=== PATIENT | female | born 1960 | race Caucasian/White ===

== ENCOUNTER → 2016-12-08 | Outpatient (REF) | payer OTHER ==
[2016-12-08 17:37] LABS: ANION GAP 7 MEQ/L (8-16); BLOOD UREA NITROGEN 18 MG/DL (7-18); CARBON DIOXIDE LEVEL 32 MEQ/L (21-32); CHLORIDE LEVEL 101 MEQ/L (98-107); CREATININE FOR GFR 1.02 MG/DL (0.55-1.02); GLOMERULAR FILTRATION RATE 59.7 (>51); GLUCOSE, FASTING 82 MG/DL (70-105); POTASSIUM SERUM 4.3 MEQ/L (3.5-5.1); SODIUM LEVEL 140 MEQ/L (136-145)
[2016-12-08 17:38] LABS: ALBUMIN 3.6 GM/DL (3.2-5.2); ALKALINE PHOSPHATASE 52 U/L (45-117); ALT/SGPT 20 U/L (12-78); AST/SGOT 12 U/L (15-37); BILIRUBIN,TOTAL 0.4 MG/DL (0.2-1.0); CALCIUM LEVEL 8.3 MG/DL (8.5-10.1); TOTAL PROTEIN 7.6 GM/DL (6.4-8.2); URIC ACID 7.3 MG/DL (2.6-6.0)
== END ==
LOC: M SFHCPLAZ 15:38
PROVIDERS: ATTEND Nurse Practitioner Family
DX: I10 Essential (primary) hypertension (principal); M25.50 Pain in unspecified joint

== ENCOUNTER → 2017-03-30 | Outpatient (CLI) | payer OTHER ==
--- NOTE | 2017-03-30 08:14 | REP ---
Left foot four views: There are no comparisons. There is mild osteoarthritis of the great toe MTP articulation. Mineralization and joint spaces otherwise are unremarkable. There is no fracture or dislocation. No calcifications or foreign bodies. Signed by Nathan De La Paz MD 03/30/2017 08:06 A
--- NOTE | 2017-03-30 08:15 | REP ---
Right foot four views: Mineralization and joint spaces are unremarkable. There is no fracture or dislocation. No calcifications or foreign bodies. Impression: Negative right foot. Signed by Nathan De La Paz MD 03/30/2017 08:07 A
== END ==
LOC: M RAD 06:38
PROVIDERS: ATTEND Nurse Practitioner Family
DX: M79.672 Pain in left foot (principal); M79.671 Pain in right foot

== ENCOUNTER → 2017-07-19 | Outpatient (REF) | payer OTHER | LOC: M SFHCPLAZ 17:00 | PROVIDERS: ATTEND Nurse Practitioner Family | DX: E78.5 Hyperlipidemia, unspecified (principal); E79.0 Hyperuricemia without signs of inflammatory arthritis and tophaceous disease; I10 Essential (primary) hypertension; Z53.8 Procedure and treatment not carried out for other reasons ==

== ENCOUNTER → 2018-07-01 | Outpatient (REF) | payer OTHER ==
[2018-07-01 14:12] LABS: ALBUMIN 3.5 GM/DL (3.2-5.2); ALKALINE PHOSPHATASE 57 U/L (45-117); ALT/SGPT 24 U/L (12-78); ANION GAP 8 MEQ/L (8-16); AST/SGOT 12 U/L (7-37); BILIRUBIN,TOTAL 0.5 MG/DL (0.2-1.0); BLOOD UREA NITROGEN 23 MG/DL (7-18); CALCIUM LEVEL 8.3 MG/DL (8.5-10.1); CARBON DIOXIDE LEVEL 34 MEQ/L (21-32); CHLORIDE LEVEL 98 MEQ/L (98-107); CHOLESTEROL LEVEL 164 MG/DL (<200); CHOLESTEROL RISK RATIO 5.125 (<5); CREATININE FOR GFR 1.05 MG/DL (0.55-1.30); FREE T4 1.06 NG/DL (0.76-1.46); GLOMERULAR FILTRATION RATE 57.5 (>51); GLUCOSE, FASTING 102 MG/DL (70-100); HDL CHOLESTEROL 32 MG/DL (>40); LDL CHOLESTEROL 79 MG/DL (<100); NON-HDL-C 132 MG/DL; POTASSIUM SERUM 4.3 MEQ/L (3.5-5.1); SODIUM LEVEL 140 MEQ/L (136-145); THYROID STIMULATING HORMONE 0.617 uIU/ML (0.358-3.740); TOTAL PROTEIN 7.9 GM/DL (6.4-8.2); TRIGLYCERIDES LEVEL 264 MG/DL (<150)
[2018-07-01 14:16] LABS: MALB URINE SIEMENS 22.3 MG/L
[2018-07-01 14:26] LABS: MAU/CREAT RATIO 20.1 MCG/MG (0.0-30.0)
== END ==
LOC: M SFHCPLAZ 11:16
DX: I10 Essential (primary) hypertension (principal); E78.5 Hyperlipidemia, unspecified

== ENCOUNTER → 2019-01-07 | Outpatient (REF) | payer OTHER ==
[2019-01-07 18:04] LABS: ALBUMIN 3.7 GM/DL (3.2-5.2); ALT/SGPT 34 U/L (12-78); BILIRUBIN,TOTAL 0.6 MG/DL (0.2-1.0); BLOOD UREA NITROGEN 16 MG/DL (7-18); CALCIUM LEVEL 8.6 MG/DL (8.5-10.1); CARBON DIOXIDE LEVEL 36 MEQ/L (21-32); CHLORIDE LEVEL 97 MEQ/L (98-107); CREATININE FOR GFR 0.94 MG/DL (0.55-1.30); GLOMERULAR FILTRATION RATE > 60.0 (>51); GLUCOSE, FASTING 87 MG/DL (70-100); POTASSIUM SERUM 4.6 MEQ/L (3.5-5.1); SODIUM LEVEL 138 MEQ/L (136-145); TOTAL PROTEIN 7.7 GM/DL (6.4-8.2)
[2019-01-07 18:32] LABS: NT-PRO BNP 365 PG/ML (<125)
[2019-01-07 21:16] LABS: HEMATOCRIT 51.2 % (36.0-47.0); HEMOGLOBIN 15.5 g/dl (12.0-15.5); MEAN CORPUSCULAR HEMOGLOBIN 28.4 pg (27.0-33.0); MEAN CORPUSCULAR HGB CONC 30.3 g/dl (32.0-36.5); MEAN CORPUSCULAR VOLUME 93.9 fl (80.0-96.0); PLATELET COUNT, AUTOMATED 233 10^3/uL (150-450); RED BLOOD COUNT 5.45 10^6/uL (4.00-5.40); WHITE BLOOD COUNT 10.3 10^3/uL (4.0-10.0)
== END ==
LOC: M SFHCPLAZ 14:50
PROVIDERS: ATTEND Nurse Practitioner Family
DX: I11.9 Hypertensive heart disease without heart failure (principal); R06.09 Other forms of dyspnea

== ENCOUNTER 2019-05-13 12:23 | Outpatient (RCR) | payer OTHER | END 2019-06-07 | LOC: M PT 12:23 | PROVIDERS: ATTEND Nurse Practitioner Family | DX: E66.01 Morbid (severe) obesity due to excess calories (principal) ==

== ENCOUNTER → 2019-09-01 | Outpatient (REF) | payer OTHER ==
[2019-09-01 17:21] LABS: ALBUMIN 3.7 GM/DL (3.2-5.2); BILIRUBIN,TOTAL 0.9 MG/DL (0.2-1.0); CALCIUM LEVEL 9.4 MG/DL (8.5-10.1); CHOLESTEROL RISK RATIO 4.171 (<5); CREATININE FOR GFR 1.02 MG/DL (0.55-1.30); FREE T4 1.23 NG/DL (0.76-1.46); POTASSIUM SERUM 4.6 MEQ/L (3.5-5.1); THYROID STIMULATING HORMONE 1.18 uIU/ML (0.358-3.740); TOTAL PROTEIN 8.1 GM/DL (6.4-8.2)
[2019-09-01 18:11] LABS: HEMATOCRIT 55.7 % (36.0-47.0); HEMOGLOBIN 16.2 g/dl (12.0-15.5); MEAN CORPUSCULAR HEMOGLOBIN 26.2 pg (27.0-33.0); MEAN CORPUSCULAR HGB CONC 29.1 g/dl (32.0-36.5); PLATELET COUNT, AUTOMATED 246 10^3/uL (150-450); RED BLOOD COUNT 6.19 10^6/uL (4.00-5.40); WHITE BLOOD COUNT 10.7 10^3/uL (4.0-10.0)
== END ==
LOC: M SFHCPLAZ 14:43
PROVIDERS: ATTEND Physician Assistant
DX: E78.5 Hyperlipidemia, unspecified (principal); I10 Essential (primary) hypertension; I50.9 Heart failure, unspecified; N92.6 Irregular menstruation, unspecified; E66.01 Morbid (severe) obesity due to excess calories

== ENCOUNTER → 2020-11-26 | Outpatient (REF) | payer OTHER ==
[2020-11-26 11:54] LABS: HEMATOCRIT 53.6 % (36.0-47.0); HEMOGLOBIN 14.9 g/dl (12.0-15.5); MEAN CORPUSCULAR HEMOGLOBIN 24.8 pg (27.0-33.0); MEAN CORPUSCULAR HGB CONC 27.8 g/dl (32.0-36.5); PLATELET COUNT, AUTOMATED 274 10^3/uL (150-450); RED BLOOD COUNT 6.02 10^6/uL (4.00-5.40); WHITE BLOOD COUNT 10.1 10^3/uL (4.0-10.0)
[2020-11-26 12:23] LABS: ALBUMIN 3.3 GM/DL (3.2-5.2); ALT/SGPT 22 U/L (12-78); BLOOD UREA NITROGEN 22 MG/DL (7-18); CALCIUM LEVEL 8.4 MG/DL (8.8-10.2); CARBON DIOXIDE LEVEL 40 MEQ/L (21-32); CHLORIDE LEVEL 96 MEQ/L (98-107); CHOLESTEROL LEVEL 126 MG/DL (<200); CHOLESTEROL RISK RATIO 3.818 (<5); CREATININE FOR GFR 0.99 MG/DL (0.55-1.30); GLOMERULAR FILTRATION RATE > 60.0 (>45); GLUCOSE, FASTING 102 MG/DL (70-100); HDL CHOLESTEROL 33 MG/DL (>40); LDL CHOLESTEROL 71 MG/DL (<100); NON-HDL-C 93 MG/DL; POTASSIUM SERUM 5.3 MEQ/L (3.5-5.1); SODIUM LEVEL 138 MEQ/L (136-145); TOTAL PROTEIN 7.3 GM/DL (6.4-8.2); TRIGLYCERIDES LEVEL 111 MG/DL (<150)
== END ==
LOC: M SFHCPLAZ 09:33
PROVIDERS: ATTEND Physician Assistant
DX: J45.909 Unspecified asthma, uncomplicated (principal); I10 Essential (primary) hypertension; E78.5 Hyperlipidemia, unspecified

== ENCOUNTER 2021-03-18 03:21 | Inpatient (IN) | payer OTHER ==
[~2021-03-18] VITALS: Ht 175.3 cm; Wt 204.7 kg
[2021-03-18 05:19] LABS: BASO # 0.1 10^3/uL (0.0-0.2); BASO % 0.5 % (0.0-1.0); EOS # 0.1 10^3/uL (0.0-0.5); EOS % 1.4 % (0.0-3.0); HEMATOCRIT 34.6 % (36.0-47.0); HEMOGLOBIN 9.1 g/dl (12.0-15.5); LYMPH # 0.9 10^3/uL (1.5-5.0); LYMPH % 9.6 % (24.0-44.0); MEAN CORPUSCULAR HEMOGLOBIN 21.3 pg (27.0-33.0); MEAN CORPUSCULAR HGB CONC 26.3 g/dl (32.0-36.5); MONO # 0.7 10^3/uL (0.0-0.8); MONO % 7.5 % (2.0-8.0); NEUTROPHILS # 7.5 10^3/uL (1.5-8.5); NEUTROPHILS % 80.5 % (36.0-66.0); RED BLOOD COUNT 4.27 10^6/uL (4.00-5.40); WHITE BLOOD COUNT 9.4 10^3/uL (4.0-10.0)
[2021-03-18 05:56] LABS: ALBUMIN 2.5 GM/DL (3.2-5.2); ALT/SGPT 12 U/L (12-78); BILIRUBIN,DIRECT 0.3 MG/DL (0.0-0.2); BILIRUBIN,TOTAL 0.7 MG/DL (0.2-1.0); BLOOD UREA NITROGEN 19 MG/DL (7-18); CALCIUM LEVEL 8.2 MG/DL (8.8-10.2); CARBON DIOXIDE LEVEL 36 MEQ/L (21-32); CHLORIDE LEVEL 101 MEQ/L (98-107); CK-MB VALUE MASS < 1.0 NG/ML (<3.6); CPK CREATINE PHOSPHOKINASE 32 U/L (26-192); CREATININE FOR GFR 1.08 MG/DL (0.55-1.30); GLOMERULAR FILTRATION RATE 55.1 (>45); GLUCOSE, FASTING 95 MG/DL (70-100); MB/CK RELATIVE INDEX 3.12 (< OR =4); NT-PRO BNP 2885 PG/ML (<125); POTASSIUM SERUM 4.8 MEQ/L (3.5-5.1); SODIUM LEVEL 140 MEQ/L (136-145); TOTAL PROTEIN 6.6 GM/DL (6.4-8.2); TROPONIN I < 0.02 NG/ML (< 0.10)
[2021-03-18] MEDS ORDERED: FUROSEMIDE 40MG/4ML VIAL (J1940) IV SCH (06:00)
--- NOTE | 2021-03-18 06:23 | REPVR ---
PROCEDURE INFORMATION: Exam: XR Chest Exam date and time: 03/18/2021 5:25 AM Age: 60 years old Clinical indication: Other: SOB TECHNIQUE: Imaging protocol: XR of the chest. Views: 1 view. COMPARISON: No relevant prior studies available. FINDINGS: Lungs: Nonspecific bilateral ground-glass opacities. Pleural spaces: Unremarkable. No pleural effusion. No pneumothorax. Heart/Mediastinum: Unremarkable. No cardiomegaly. Diaphragm: Elevated left hemidiaphragm. Bones/joints: Unremarkable. IMPRESSION: Nonspecific bilateral ground-glass opacities. Electronically signed by: Spencer Muro On 03/18/2021 06:23:33 AM
[2021-03-18] MEDS ORDERED: VENL37.598 PO (07:06)
[2021-03-18] MEDS ORDERED: BUSP1TAB PO (07:06)
[2021-03-18] MEDS ORDERED: XARE20TA PO (07:06)
[2021-03-18] MEDS ORDERED: MONT10TA10 PO (07:06)
[2021-03-18] MEDS ORDERED: FLUO20CA20 PO (07:06)
[2021-03-18] MEDS ORDERED: PROAAER10 INH (07:06)
[2021-03-18] MEDS ORDERED: FLON1SPR (07:06)
[2021-03-18] MEDS ORDERED: METF-839 PO (07:06)
[2021-03-18] MEDS ORDERED: METO100T5 PO (07:06)
[2021-03-18] MEDS ORDERED: ACET650T61 PO (07:06)
[2021-03-18] MEDS ORDERED: LISI20TA20 PO (07:06)
[2021-03-18] MEDS ORDERED: CHOL50002 PO (07:06)
[2021-03-18] MEDS ORDERED: TRAZ-252 PO (07:06)
[2021-03-18 07:07] LABS: RSV AMPLIFICATION NEGATIVE (NEGATIVE)
[2021-03-18 08:46] LABS: FERRITIN 8 NG/ML (8-252); IRON (FE) 17 UG/DL (50-170); PERCENT SATURATION 4.4 % (13.2-45.0); TOTAL IRON BINDING CAPACITY 386 UG/DL (250-450)
[2021-03-18] MEDS: NYSTATIN CREAM 15 GM TOP SCH ×2 (09:00→21:29)
[2021-03-18 09:12] LABS: PLATELET COUNT, AUTOMATED 384 10^3/uL (150-450)
[2021-03-18 10:05] VITALS: BP 125/66
[2021-03-18] MEDS ORDERED: SLF 3 ML SYR IV PRN (10:25)
[2021-03-18] MEDS ORDERED: GLUCOSE 4GM CHEW TABLET PO PRN (11:05)
[2021-03-18] MEDS ORDERED: ALBUTEROL 90 MCG/ACT 8GM HFA INHALER INH PRN (11:05)
[2021-03-18] MEDS ORDERED: FLUTICASONE PROP 0.05% NASAL SPRAY 16 GM (FLONASE) PRN (11:05)
[2021-03-18] MEDS ORDERED: GLUCAGON INJ 1MG VIAL SC PRN (11:05)
[2021-03-18] MEDS ORDERED: DEXTROSE 50% 50 ML SYRINGE IV PRN (11:05)
[2021-03-18] MEDS: HumaLOG INSULIN (NovoLOG) PER UNIT SC SCH ×3 (12:00→21:00)
--- NOTE | 2021-03-18 12:05 | HPE ---
HISTORY AND PHYSICAL DATE OF ADMISSION: 03/18/2021 CHIEF COMPLAINT: Shortness of breath. HISTORY OF PRESENTING ILLNESS: This is a 60-year-old female with super morbid obesity, diastolic heart failure, preserved ejection fraction of 60-65%, obstructive sleep apnea, hypertension, Protein C deficiency, pulmonary embolism in 2009, depression, seasonal allergies, and two sections. She was in her usual state of health until 3-4 weeks ago when she developed increasing dyspnea and worsening dyspnea on exertion. The patient was initially on Lasix, but was discontinued by her primary care physician since she has lost about 80 pounds two years ago. The patient does not follow fluid restrictions and admits to dietary indiscretion often using soups and chili and frozen vegetables from the supermarket. She complains of dyspnea on exertion walking about 5-8 feet. She has been sleeping on her recliner, unable to lay down flat due to shortness of breath. She has been waking up at night with paroxysmal nocturnal dyspnea due to shortness of breath and has not slept in her bed for many months. She also complains of feeling weak, difficult to ambulate. Her who is about 250 pounds has been helping her sit up at home. She has also noted vaginal spotting for the past few months. Hemoglobin was noted to have decreased from baseline of 14.9 to 9.1 today. No GI bleed. Denies hematemesis, bright red blood per rectum, black tarry stools, or coffee ground emesis. She denies any fever, chills, or cough, sore throat, urgency, frequency. In the emergency room, she was noted to be anemic with hemoglobin of 9 from baseline of 14-16. Chest x-ray showed bilateral opacities. Clinically appears fluid-overloaded with 3+ edema to the sacrum. Hospitalist was asked to admit the patient for congestive heart failure, diastolic dysfunction, and evaluation of her vaginal bleeding with symptomatic anemia. PAST MEDICAL HISTORY: 1. Super morbid obesity. 2. Obstructive sleep apnea. 3. Hypertension. 4. Diastolic heart failure with preserved systolic function, ejection fraction of 60-65%. 5. Pulmonary embolism. 6. Protein C deficiency. 7. Depression. 8. Seasonal allergies. PAST SURGICAL HISTORY: Two sections in 1982 and 1984. ALLERGIES: No known drug allergies. SOCIAL HISTORY: Full code, lives with her . Retired on disability. Denies tobacco, alcohol, or recreational drug use. FAMILY HISTORY: Father alive at age 78, bipolar, depression, hypertension. Mother is 79 with depression. Siblings with bipolar and hypertension. REVIEW OF SYSTEMS: Per HPI. PHYSICAL EXAMINATION: VITAL SIGNS: Temperature 98.7, pulse 92, respiratory rate 27, blood pressure 125/66, 95% on 2 liters nasal cannula. GENERAL: The patient is awake, alert, oriented. She has conversation on dyspnea, only able to speak about 6 words and has to pause to breathe. No cyanosis. Light pallor. No icterus, jaundice. NECK: The patient has positive mild JVD. No thyromegaly, cervical lymphadenopathy. HEENT: Pupils are round and reactive to light and accommodation with slight proptosis bilaterally. The patient has no stridor. LUNGS: Diminished with bilateral rales. HEART: S1, S2, sinus rhythm. No murmurs, rubs, or gallops. ABDOMEN: Obese, soft, nontender. Edematous changes noted underneath the pannus and breasts. Positive bowel sounds, soft, nontender, non-distended. Normoactive bowel sounds. Difficult to assess for hepatosplenomegaly and abdominal bruits. Groin is erythematous. No ulcers noted. EXTREMITIES: 3+ pitting edema to the sacrum. Chronic venous stasis changes. DATA: 1. EKG shows sinus rhythm, ventricular rate of 89 with LAD. 2. White count 9, hemoglobin 9, hematocrit 34, platelet count 384. Sodium 140, potassium 48, chloride 101, bicarb 36, BUN 19, creatinine 1.08, glucose 95. Iron 17, TIBC 386. BNP 2885. Troponin less than 0.02. 3. Chest x-ray shows bilateral opacities. 4. Coronavirus 19 is negative. ASSESSMENT: This is a 60-year-old with super morbid obesity BMI 73.1, obstructive sleep apnea, diastolic congestive heart failure, ejection fraction of 60% , hypertension, who presents to the emergency room with 3-4 week history of shortness of breath, admitted for congestive heart failure exacerbation secondary to symptomatic anemia due to vaginal bleeding. The patient will be admitted as an inpatient for 2 midnights. IMPRESSION: 1. Acute decompensated diastolic congestive heart failure with preserved systolic function, EF of 60% on ECHO 2013, most likely due to noncompliance and symptomatic anemia. The patient admits to dietary indiscretion and not following a fluid restriction. She has not followed salt restricted diet and usually uses frozen vegetables and chili. She will be kept on strict I&Os, daily weight, fluid restriction of 1.8 liters. Lasix 40 IV q.6 h. Repeat the echocardiogram. Cycle the cardiac markers. Avoid other nephrotoxins. Monitor the patient's creatinine. 2. Super morbid obesity, BMI of 73, with obstructive sleep apnea. Supplemental oxygen for now. The patient does not wear CPAP. To rule out metabolic syndrome, will check A1c, lipid profile, TSH. 3. History of Protein C deficiency and pulmonary embolism. The patient is on chronic oral anticoagulation which we may resume. 4. Dyslipidemia. Check lipid profile. 5. Hypertension, controlled. 6. Diet: Low fat, low cholesterol, 2 grams sodium diet. 7. Code status: Full code. 8. DVT prophylaxison oralanticoagulant MTDD
[2021-03-18] MEDS: SLF 3 ML SYR IV SCH ×2 (14:02→21:30)
[2021-03-18] MEDS: ACETAMINOPHEN 650MG ER TAB (TYLENOL ARTHRITIS) PO SCH ×2 (14:16→21:29)
[2021-03-18] MEDS ORDERED: metOLazone 2.5 MG TAB PO ONE (15:00)
[2021-03-18] MEDS: FUROSEMIDE 40MG/4ML VIAL (J1940) IV SCH ×2 (16:58→21:29)
[2021-03-18] MEDS: FLUoxetine 20 MG CAP PO SCH (18:47)
[2021-03-18] MEDS: MONTELUKAST 10 MG TAB PO SCH (18:47)
[2021-03-18] MEDS: RIVAROXABAN 20 MG TAB (XARELTO) PO SCH (18:47)
--- NOTE | 2021-03-18 19:50 | ECGEPIP ---
[facility] - ED Test Date: 2021-03-18 Pat Name: MARLENY MARIE Department: Room: [place] [address] Gender: Female Chronic Manager: : 1960 Requested By: James Grayson Order Number: [id number] Reading MD: Jaycob Francis Measurements Intervals [place] Rate: 89 P: 78 [place]: 174 QRS: -43 QRSD: 106 T: 74 QT: 398 QTc: 484 Interpretive Statements Normal sinus rhythm Possible Left atrial enlargement Left axis deviation Low voltage QRS Delayed anterior R wave progression Incomplete right bundle branch block Nonspecific ST-T wave abnormalities Baseline artifact Comparison tracing not on file Electronically Signed on 03-18-2021 19:50:12 EDT by Jaycob Francis
[2021-03-18 20:00] VITALS: BP 96/55
[2021-03-18] MEDS: traZODone 50 MG TAB PO SCH (21:29)
[2021-03-19] VITALS (7 sets, daily range): BP systolic 95–133; BP diastolic 53–65
[2021-03-19] MEDS: ACETAMINOPHEN 650MG ER TAB (TYLENOL ARTHRITIS) PO SCH ×3 (04:55→21:54)
[2021-03-19] MEDS: SLF 3 ML SYR IV SCH ×3 (04:55→21:39)
[2021-03-19] MEDS: FUROSEMIDE 40MG/4ML VIAL (J1940) IV SCH ×2 (04:55→10:58)
[2021-03-19 06:25] LABS: BASO % 0.5 % (0.0-1.0); EOS # 0.2 10^3/uL (0.0-0.5); HEMATOCRIT 35.7 % (36.0-47.0); HEMOGLOBIN 9.4 g/dl (12.0-15.5); LYMPH # 0.8 10^3/uL (1.5-5.0); LYMPH % 9.4 % (24.0-44.0); MEAN CORPUSCULAR HEMOGLOBIN 21.7 pg (27.0-33.0); MEAN CORPUSCULAR HGB CONC 26.3 g/dl (32.0-36.5); MEAN CORPUSCULAR VOLUME 82.4 fl (80.0-96.0); MONO # 0.6 10^3/uL (0.0-0.8); MONO % 7.2 % (2.0-8.0); NEUTROPHILS # 7.1 10^3/uL (1.5-8.5); NEUTROPHILS % 80.4 % (36.0-66.0); PLATELET COUNT, AUTOMATED 348 10^3/uL (150-450); RED BLOOD COUNT 4.33 10^6/uL (4.00-5.40); WHITE BLOOD COUNT 8.8 10^3/uL (4.0-10.0)
[2021-03-19 06:42] LABS: CALCIUM LEVEL 8.4 MG/DL (8.8-10.2); CHOLESTEROL RISK RATIO 2.419 (<5); CREATININE FOR GFR 1.02 MG/DL (0.55-1.30); FREE THYROXINE INDEX 1.4 % (1.3-4.8); GLOMERULAR FILTRATION RATE 58.8 (>45); POTASSIUM SERUM 3.9 MEQ/L (3.5-5.1); THYROID STIMULATING HORMONE 1.46 uIU/ML (0.358-3.740); THYROXINE (T4) 4.4 UG/DL (4.5-12.0)
[2021-03-19 06:48] LABS: HEMOGLOBIN A1c 6.4 %
[2021-03-19] MEDS: HumaLOG INSULIN (NovoLOG) PER UNIT SC SCH ×4 (07:30→21:00)
--- NOTE | 2021-03-19 08:31 | REP ---
INDICATION: sob. COMPARISON: Comparison radiograph March 18, 2021. TECHNIQUE: Portable upright AP chest radiograph. FINDINGS: The patient is again noted be rotated to the left. Cardiac silhouette is difficult to evaluate due to the rotation but appears slightly prominent. Pulmonary vasculature is not increased. No definite infiltrate is seen. The left lateral pleural angle is obscured, possibly by abdominal wall tissue. I cannot exclude small left pleural effusion.. IMPRESSION: Obscured versus blunted left lateral pleural angle. Mildly prominent heart. No definite infiltrate patient is rotated to the left.. <Electronically signed by Austin Sweet > 03/19/21 [id number]
[2021-03-19] MEDS ORDERED: MIDODRINE 5 MG TAB PO ONE ×2 (09:00→12:15)
[2021-03-19] MEDS: NYSTATIN 100,000 UNITS/GM TOPICAL PWD 15 GM TOP SCH ×2 (09:00→21:54)
[2021-03-19] MEDS: NYSTATIN CREAM 15 GM TOP SCH (09:23)
[2021-03-19] MEDS ORDERED: metOLazone 5 MG TAB PO ONE ×2 (09:30→13:30)
--- NOTE | 2021-03-19 09:30 | IPN ---
PROGRESS NOTE DATE: 03/19/2021 SUBJECTIVE: Patient seen and examined at the bedside. Chart has been reviewed. She denies any chest pain, pressure, tightness, lightheadedness, or dizziness. Complains of a little bit of thirst. Had 4.9 liters urine output yesterday on IV Lasix. No dizziness or lightheadedness. OBJECTIVE: VITAL SIGNS: Temperature 97.5, pulse 94, respiratory rate 20, blood pressure 111/57, 91% on BiPAP. GENERAL: The patient is awake, alert, and oriented. No conversational dyspnea. No pallor or icterus. LUNGS: Diminished with bilateral rales. HEART: S1, S2. Sinus rhythm. ABDOMEN: Soft, nontender, and nondistended. EXTREMITIES: 3+ pitting edema. LABORATORY DATA: CBC and metabolic panel have been reviewed. ASSESSMENT: This is a 60-year-old female with history of super morbid obesity with body mass index (BMI) of 66.8 who presented to the emergency room with a three to four week history of worsening shortness of breath, admitted for the following issues: 1. Acute decompensated congestive heart failure with preserved systolic function. The patient is kept on strict I and O (intake and output) and daily weights and fluid restriction. She is kept on Lasix 40 intravenous (IV) q. 6 hourly. Repeating echocardiogram. Cardiac markers have been reviewed. Appears much more comfortable now. 2. Super morbid obesity/obstructive sleep apnea resumed on her home BiPAP. A1c is normal. Lipid profile has been reviewed. 3. History of protein C deficiency and pulmonary embolus (PE) on chronic oral anticoagulation. 4. Dyslipidemia. Continue lipid profile. 5. Hypertension controlled. Diet low fat, low cholesterol, 2 gram sodium. 6. Code status: FULL CODE. 7. Deep vein thrombosis (DVT) prophylaxis on oral anticoagulant. MTDD
[2021-03-19] MEDS: POTASSIUM CHLORIDE 10 MEQ SR TABLET PO SCH ×2 (12:51→21:53)
[2021-03-19] MEDS: FUROSEMIDE injection 250 MG in D5W 225 ML IV SCH (15:51)
[2021-03-19] MEDS ORDERED: BISACODYL 10 MG SUPP PR PRN (17:30)
[2021-03-19] MEDS ORDERED: MOM 30ML SUSPENSION UDC PO PRN (17:30)
[2021-03-19] MEDS: MONTELUKAST 10 MG TAB PO SCH (18:46)
[2021-03-19] MEDS: RIVAROXABAN 20 MG TAB (XARELTO) PO SCH (18:46)
[2021-03-19] MEDS: FLUoxetine 20 MG CAP PO SCH (18:46)
[2021-03-19 19:05] LABS: HEMATOCRIT 34.3 % (36.0-47.0)
[2021-03-19 19:50] LABS: BLOOD UREA NITROGEN 16 MG/DL (7-18); CALCIUM LEVEL 8.6 MG/DL (8.8-10.2); CARBON DIOXIDE LEVEL 44 MEQ/L (21-32); CHLORIDE LEVEL 95 MEQ/L (98-107); CK-MB VALUE MASS < 1.0 NG/ML (<3.6); CPK CREATINE PHOSPHOKINASE 37 U/L (26-192); CREATININE FOR GFR 1.11 MG/DL (0.55-1.30); GLOMERULAR FILTRATION RATE 53.4 (>45); GLUCOSE, FASTING 109 MG/DL (70-100); MAGNESIUM LEVEL 1.6 MG/DL (1.8-2.4); POTASSIUM SERUM 4.3 MEQ/L (3.5-5.1); SODIUM LEVEL 139 MEQ/L (136-145); TROPONIN I < 0.02 NG/ML (< 0.10)
[2021-03-19] MEDS: traZODone 50 MG TAB PO SCH (21:53)
[2021-03-19] MEDS: SENOKOT S TAB PO SCH (21:54)
[2021-03-19] MEDS ORDERED: PILL CUTTER 1 EACH XX PRN (21:55)
[2021-03-19] MEDS: busPIRone 5 MG TAB PO PRN (22:30)
[2021-03-20] VITALS (8 sets, daily range): BP systolic 117–128; BP diastolic 48–60; O2SAT 85–94
[2021-03-20] MEDS: SLF 3 ML SYR IV SCH ×3 (05:24→21:15)
[2021-03-20] MEDS: ACETAMINOPHEN 650MG ER TAB (TYLENOL ARTHRITIS) PO SCH ×3 (05:29→21:14)
[2021-03-20 05:31] LABS: BASO # 0.1 10^3/uL (0.0-0.2); BASO % 0.5 % (0.0-1.0); EOS # 0.2 10^3/uL (0.0-0.5); EOS % 2.1 % (0.0-3.0); HEMATOCRIT 34.2 % (36.0-47.0); HEMOGLOBIN 9.1 g/dl (12.0-15.5); LYMPH # 0.8 10^3/uL (1.5-5.0); LYMPH % 7.8 % (24.0-44.0); MEAN CORPUSCULAR HEMOGLOBIN 21.4 pg (27.0-33.0); MEAN CORPUSCULAR HGB CONC 26.6 g/dl (32.0-36.5); MEAN CORPUSCULAR VOLUME 80.5 fl (80.0-96.0); MONO # 0.8 10^3/uL (0.0-0.8); MONO % 7.9 % (2.0-8.0); NEUTROPHILS % 81.1 % (36.0-66.0); PLATELET COUNT, AUTOMATED 340 10^3/uL (150-450); RED BLOOD COUNT 4.25 10^6/uL (4.00-5.40); WHITE BLOOD COUNT 9.9 10^3/uL (4.0-10.0)
[2021-03-20 06:12] LABS: BLOOD UREA NITROGEN 13 MG/DL (7-18); CREATININE FOR GFR 1.03 MG/DL (0.55-1.30); GLUCOSE, FASTING 91 MG/DL (70-100)
[2021-03-20 06:13] LABS: CALCIUM LEVEL 9.1 MG/DL (8.8-10.2); CARBON DIOXIDE LEVEL 49 MEQ/L (21-32); CHLORIDE LEVEL 91 MEQ/L (98-107); GLOMERULAR FILTRATION RATE 58.2 (>45); MAGNESIUM LEVEL 1.8 MG/DL (1.8-2.4); POTASSIUM SERUM 4.2 MEQ/L (3.5-5.1); SODIUM LEVEL 137 MEQ/L (136-145)
[2021-03-20] MEDS: HumaLOG INSULIN (NovoLOG) PER UNIT SC SCH ×4 (07:30→21:00)
--- NOTE | 2021-03-20 08:41 | REP ---
INDICATION: sob. COMPARISON: Comparison radiograph March 19, 2021. TECHNIQUE: Portable upright AP chest radiograph. FINDINGS: Patient is rotated slightly to the left. This is improved in position. EKG electrodes are seen. The lungs are symmetrically aerated. No infiltrate is seen. The pleural angles appear to be sharp. Heart size is borderline. Pulmonary vasculature is cephalized and somewhat congested.. IMPRESSION: Mildly prominent heart. Pulmonary vascular cephalization and congestion. No definite infiltrate.. <Electronically signed by Austin Sweet > 03/20/21 [id number]
[2021-03-20] MEDS: POTASSIUM CHLORIDE 10 MEQ SR TABLET PO SCH ×2 (10:40→21:14)
[2021-03-20] MEDS: SENOKOT S TAB PO SCH ×2 (10:41→21:14)
[2021-03-20] MEDS: NYSTATIN 100,000 UNITS/GM TOPICAL PWD 15 GM TOP SCH ×2 (10:41→21:14)
--- NOTE | 2021-03-20 13:25 | IPN ---
PROGRESS NOTE DATE: 03/20/2021 SUBJECTIVE: Patient is seen and examined at the bedside. Chart has been reviewed. Patient continues to have vaginal spotting, soaks about two pads daily, on Eliquis due to history of pulmonary embolus (PE) and protein C deficiency. Diuresing well, 9.4 liters overnight, net negative 7.7 liters. Current weight is 214 kilos from 224 kilos on admission. Denies chest pain, pressure, tightness, lightheadedness or dizziness. Patient has not been out of bed since midnight. She diuresed 5.85 liters. PHYSICAL EXAMINATION: VITAL SIGNS: Temperature 98, pulse 111 sinus, respiratory rate 20, blood pressure 128/58, 92% on 3 liters nasal cannula. GENERAL: Patient is awake, alert, oriented to person, place and time, answering questions appropriately. HEENT: Mild jugular venous distention (JVD). No thyromegaly or cervical lymphadenopathy. LUNGS: Diminished, bilateral crackles. HEART: S1, S2. Sinus tachycardia. ABDOMEN: Obese. Soft, nontender, nondistended. Positive bowel sounds times four quadrants. EXTREMITIES: No cyanosis or clubbing. There is 3+ pitting edema to the sacrum. DIAGNOSTIC DATA: Laboratory data, imaging studies, microbiology have all been reviewed. ASSESSMENT: This is a 60-year-old, super morbid obesity, body mass index (BMI) of 70, obstructive sleep apnea, who presented with worsening shortness of breath for the past three to four weeks. IMPRESSION: 1. Acute decompensated congestive heart failure, preserved systolic function, diastolic dysfunction. 2. Super morbid obesity, BMI of 70. 3. Obstructive sleep apnea. 4. History of pulmonary embolus (PE). 5. Protein C deficiency. 6. History of vaginal bleeding. 7. Acute blood loss anemia. 8. Dyslipidemia. 9. Hypertension. PLAN: Patient is not medically stable for any invasive testing for the vaginal bleeding due to active congestive heart failure. Therefore, if patient's hemoglobin decreases to less than 8, she may be transfused 2 units of red blood cells (RBCs). She is continued on Lasix intravenous (IV) drip, strict intake and output, daily weights and fluid restriction with good diuresis. Monitor electrolytes with serial metabolic panel and magnesium. Patient is resumed back on her home anticoagulation due to history of pulmonary embolus (PE), deep venous thrombosis (DVT) and protein C deficiency. Track venous Doppler bilateral lower extremities, rule out DVT. MTDD
[2021-03-20] MEDS ORDERED: oxyCODONE 5MG TAB PO ONE (13:30)
[2021-03-20] MEDS: MIRALAX *UNIT DOSE* 17GM PACKET PO PRN (13:35)
--- NOTE | 2021-03-20 15:17 | REP ---
INDICATION: VAG BLEEDING POSTMENO. COMPARISON: None. TECHNIQUE: Transabdominal and transvaginal scanning were performed. FINDINGS: Scan quality is markedly diminished on both transabdominal and transvaginal imaging. Transabdominal imaging fails to demonstrate any of the pelvic organs. Transvaginal imaging shows only the uterine cervix. The body of the uterus and the ovaries could not be visualized. This is apparently related to body habitus.. There is a small quantity of endocervical fluid visible. No cervical mass lesion is visualized.. . IMPRESSION: Profoundly limited exam quality and extent as above. Only a portion of the cervix was visualized showing some endocervical fluid. The body of the uterus and the ovaries could not be visualized.. <Electronically signed by Austin Sweet > 03/20/21 [id number]
[2021-03-20] MEDS: FUROSEMIDE injection 250 MG in D5W 225 ML IV SCH (17:03)
[2021-03-20] MEDS: MONTELUKAST 10 MG TAB PO SCH (17:04)
[2021-03-20] MEDS: RIVAROXABAN 20 MG TAB (XARELTO) PO SCH (17:04)
[2021-03-20] MEDS: FLUoxetine 20 MG CAP PO SCH (17:04)
[2021-03-20] MEDS ORDERED: MAG SULF 1GM/100ML (MAG RUN) 1 GM in IV 1 EA IV ONE (18:30)
[2021-03-20 20:32] LABS: CALCIUM LEVEL 8.9 MG/DL (8.8-10.2); CREATININE FOR GFR 1.04 MG/DL (0.55-1.30); GLOMERULAR FILTRATION RATE 57.5 (>45); MAGNESIUM LEVEL 1.8 MG/DL (1.8-2.4); POTASSIUM SERUM 3.8 MEQ/L (3.5-5.1)
[2021-03-20] MEDS: CETIRIZINE (ZyrTEC) 10 MG TAB PO SCH (21:13)
[2021-03-20] MEDS: traZODone 50 MG TAB PO SCH (21:14)
[2021-03-20] MEDS: busPIRone 5 MG TAB PO PRN (21:15)
[2021-03-20] MEDS: SODIUM CHLORIDE NASAL 0.65% SPRAY BTL (OCEAN) PRN (21:21)
--- NOTE | 2021-03-20 22:24 | REPVR ---
PROCEDURE INFORMATION: Exam: US Duplex Lower Extremity Veins, Bilateral Exam date and time: 03/20/2021 9:23 PM Age: 60 years old Clinical indication: Edema, localized; Lower extremity, bilateral; Additional info: Edema R/O dvt TECHNIQUE: Imaging protocol: Real-time duplex ultrasound of the extremities with 2-D coronel scale, color Doppler flow and spectral waveform analysis with image documentation. Complete exam focused on the bilateral lower extremity veins. COMPARISON: No relevant prior studies available. FINDINGS: Limitations: Body habitus. Right deep veins: Right calf veins are poorly evaluated. Visualized deep veins of the right lower extremity are without evidence of thrombosis. Right superficial veins: Saphenofemoral junction is patent without thrombus. Left deep veins: Left calf veins are poorly evaluated. Visualized deep veins of the left lower extremity are without evidence of thrombosis. Left superficial veins: Saphenofemoral junction is patent without thrombus. Soft tissues: Unremarkable. IMPRESSION: 1. Examination is significant limited by patient body habitus. 2. No definite evidence of DVT to the degree visualized. Electronically signed by: Parag Valero On 03/20/2021 22:23:39 PM
[2021-03-21] MEDS: FUROSEMIDE 40MG/4ML VIAL (J1940) IV SCH ×4 (00:27→21:19)
[2021-03-21 06:00] VITALS: BP 126/59
[2021-03-21 06:06] LABS: BASO % 0.3 % (0.0-1.0); EOS # 0.3 10^3/uL (0.0-0.5); EOS % 2.8 % (0.0-3.0); HEMATOCRIT 35.8 % (36.0-47.0); HEMOGLOBIN 9.4 g/dl (12.0-15.5); LYMPH # 0.6 10^3/uL (1.5-5.0); LYMPH % 6.3 % (24.0-44.0); MEAN CORPUSCULAR HEMOGLOBIN 21.9 pg (27.0-33.0); MEAN CORPUSCULAR HGB CONC 26.3 g/dl (32.0-36.5); MEAN CORPUSCULAR VOLUME 83.3 fl (80.0-96.0); MONO # 0.9 10^3/uL (0.0-0.8); PLATELET COUNT, AUTOMATED 324 10^3/uL (150-450); WHITE BLOOD COUNT 9.8 10^3/uL (4.0-10.0)
[2021-03-21 07:29] LABS: CALCIUM LEVEL 8.2 MG/DL (8.8-10.2); CREATININE FOR GFR 1.01 MG/DL (0.55-1.30); GLOMERULAR FILTRATION RATE 59.5 (>45); POTASSIUM SERUM 3.9 MEQ/L (3.5-5.1)
[2021-03-21] MEDS: HumaLOG INSULIN (NovoLOG) PER UNIT SC SCH ×4 (07:30→21:00)
[2021-03-21 07:33] VITALS: BP 123/57
[2021-03-21] MEDS: SLF 3 ML SYR IV SCH ×3 (07:35→21:20)
[2021-03-21] MEDS: ACETAMINOPHEN 650MG ER TAB (TYLENOL ARTHRITIS) PO SCH ×3 (07:35→21:18)
[2021-03-21 08:40] VITALS: O2SAT 90
--- NOTE | 2021-03-21 08:42 | REP ---
INDICATION: sob COMPARISON: 03/20/2021 TECHNIQUE: Portable AP view of the chest FINDINGS: Cardiomegaly is appreciated along with increased pulmonary vasculature, cephalization, increased interstitial markings, and lower lobe opacities most compatible with CHF. Lower lobe multifocal infiltrates and effusions cannot be excluded. No pneumothorax. Skeletal structures intact. IMPRESSION: Findings suggest CHF including lower lobe opacities suggesting elements of atelectasis/effusion. Correlation is required. <Electronically signed by Sha Romeo > 03/21/21 [id number]
[2021-03-21] MEDS: POTASSIUM CHLORIDE 10 MEQ SR TABLET PO SCH ×2 (10:05→21:18)
[2021-03-21] MEDS: SENOKOT S TAB PO SCH ×2 (10:06→21:18)
[2021-03-21] MEDS: busPIRone 5 MG TAB PO PRN (10:06)
[2021-03-21] MEDS: CETIRIZINE (ZyrTEC) 10 MG TAB PO SCH (10:06)
[2021-03-21] MEDS: NYSTATIN 100,000 UNITS/GM TOPICAL PWD 15 GM TOP SCH ×2 (10:07→21:21)
--- NOTE | 2021-03-21 10:30 | ECHO ---
ECHOCARDIOGRAM DATE OF PROCEDURE: 03/18/2021 Age: 60 REFERRING PROVIDER: Dr. Lorie Davis. PATIENT LOCATION: Room 3221. REASON FOR THE TESTING: Shortness of breath. 2D MEASUREMENTS: IVS 1.9 cm LV 4.3 cm LA 3.5 cm Aorta 3.3 cm IVC 3.3 cm DOPPLER MEASUREMENT Peak velocity across the aortic valve 2.1 m/s Peak velocity across the LVOT 0.84 m/s Mitral E 1.2 Mitral A 1.1 with a ratio of 1.1 Maximum tricuspid valve velocity 3.5 m/s 2D COMMENTS: 1. Technically very limited study due to poor acoustic window secondary to body habitus. 2. The left ventricular size is normal with probably moderately increased left ventricular wall thickness. Left ventricular systolic function is normal, estimated at 60 to 65%. 3. Subjectively, the left atrium appeared to be mildly enlarged on limited views. Dilated right atrium and right ventricle. The right ventricular free wall was not well visualized. 4. The atrial septum did not appear to have any evidence of shunt. 5. A trace to small pericardial effusion was noted, no evidence of cardiac tamponade. 6. Mildly calcified aortic valve with normal leaflet excursion. Mildly calcified mitral annulus with normal appearing mitral valve leaflet motion. Normal tricuspid valve. The pulmonic valve and proximal pulmonary artery branches were not well visualized. 7. The inferior vena cava was dilated, central venous pressure is most likely elevated. IMPRESSION: 1. Normal global left ventricular systolic function with probably moderate concentric left ventricular hypertrophy. Assessment of the left ventricular diastolic function appeared to be normal. 2. Aortic valve sclerosis with mild aortic stenosis but no aortic regurgitation. 3. Mitral annulus calcification. No evidence of mitral regurgitation or stenosis. 4. Mild tricuspid regurgitation with moderate pulmonary hypertension and dilated right heart chambers. Could not rule out more severe pulmonary hypertension. 5. There were finding c/w with elevated central venous pressure. The inferior vena cava is dilated. 6. Trace to small pericardial effusion. MTDD
[2021-03-21] MEDS ORDERED: SODIUM CHLORIDE NASAL 0.65% SPRAY BTL (OCEAN) PRN (11:05)
[2021-03-21] MEDS ORDERED: ISOVUE-370 76% 100ML VIAL As Ordered ONE (11:26)
--- NOTE | 2021-03-21 13:33 | IPNPDOC ---
Date Seen The patient was seen on 03/21/21. Progress Note addendum to progress note: Diagnoses: acute blood loss anemia symptomatic anemia acute postmenopausal vaginal bleeding/DUB h/o PE/protein C deficiency -holding xarelto due to acute blood loss probable HCAP due to worsening acute hypoxia Acute Hypoxic respiratory failure due to acute on chronic Diastolic CHF exacerbation, and probable HCAP Contraction Alkalosis due to recent lasix iv gtt due to ongoing vaginal bleeding with symptomatic anemia and ongoing acute chf exacerbation, now requiring 2 units rbc transfusion , we are: -holding xarelto despite risk of dvt/pe with h/o protein c deficiency until anemia is stable. -check ct chest w contrast to rule out pe. -due to concerns for contrast nephropathy now that she will be given contrast with ct chest PE protocol, along with scheduled lasix 40mg iv q6hrs for acute on chronic chf exacerbation, recheck 2200 bmp and hold next dose of lasix if creatinine >1.3. -once pt's chf is resolved, clinical geneticist consult for evaluation of vaginal bleed. right now, pt is not medically stable to be sedated for laparoscopy. VS, I&O, 24H, Fishbone Vital Signs/I&O Vital Signs Date Time Temp Pulse Resp B/P (MAP) Pulse Ox O2 Delivery O2 Flow Rate FiO2 03/21/21 07:40 92 High Flow Cannula 8.0 03/21/21 07:33 123/57 (79) 03/21/21 06:00 97.2 113 20 I&O- Last 24 Hours up to 6 AM 03/21/21 06:00 Intake Total 1540 ml Output Total 8200 ml Balance -6660 ml Laboratory Data 24H LABS Laboratory Tests 2 03/20/21 17:02: Bedside Glucose (Misc Panel) 104 03/20/21 18:41: Anion Gap 1L, Glomerular Filtration Rate 57.5, Calcium Level 8.9, Magnesium Level 1.8 03/20/21 21:22: Bedside Glucose (Misc Panel) 114 03/21/21 05:52: Anion Gap 17H, Glomerular Filtration Rate 59.5, Calcium Level 8.2L, Immature Granulocyte % (Auto) 0.6, Neutrophils (%) (Auto) 81.0H, Lymphocytes (%) (Auto) 6.3L, Monocytes (%) (Auto) 9.0H, Eosinophils (%) (Auto) 2.8, Basophils (%) (Auto) 0.3, Neutrophils # (Auto) 8.0, Lymphocytes # (Auto) 0.6L, Monocytes # (Auto) 0.9H, Eosinophils # (Auto) 0.3, Basophils # (Auto) 0.0, Nucleated Red Blood Cells % (auto) 0.0 03/21/21 12:00: Bedside Glucose (Misc Panel) 111 CBC/BMP Laboratory Tests 03/20/21 18:41 03/21/21 05:52 SHANTAL BRAVO MD Mar 21, 2021 13:33
[2021-03-21 13:37] LABS: ABG BASE EXCESS 20.2 (-2.0-2.0); ABG HCO3 47.3 MEQ/L (22.0-26.0); ABG O2 SATURATION 98.3 % (95.0-99.0); ABG PARTIAL PRESSURE CO2 71.4 mmHg (35.0-45.0); ABG PARTIAL PRESSURE O2 113.3 mmHg (75.0-100.0); ABG STANDARD HCO3 44.3 MEQ/L (22.0-26.0); ABG TOTAL CO2 49.5 MEQ/L (23.0-31.0); ABG pH (ARTERIAL) 7.439 UNITS (7.350-7.450)
[2021-03-21] MEDS: IPRATROPIUM 0.5MG/ALBUTEROL 2.5MG INH SOL UD 3ML (DUONEB) NEB SCH ×2 (14:00→20:29)
[2021-03-21 14:07] LABS: C REACTIVE PROTEIN QUANTITATIV 10.1 MG/DL (0.00-0.30)
[2021-03-21] MEDS: PIPERACILLIN/TAZOBACTAM SOD 4.5 GM in D5W MINI-BAG PLUS 50 ML IV SCH ×2 (14:32→21:17)
[2021-03-21] MEDS: SODIUM CHLORIDE NASAL 0.65% SPRAY BTL (OCEAN) PRN (14:36)
--- NOTE | 2021-03-21 15:40 | REP ---
INDICATION: sob tachycardic r/o pe proteinc def COMPARISON: None. TECHNIQUE: CT angiography of the chest attention pulmonary arteries after the intravenous administration of 75 cc Isovue 370. FINDINGS: There is suboptimal visualization of the pulmonary arterial vascular secondary to significant artifact and poor vascular contrast opacification. This is distal to degree that a pulmonary embolism cannot be ruled out. Seen arising from the inferior pole of the left lobe of the thyroid gland there is partially calcified and possibly enhancing nodule which measures 3.3 cm. There is no mediastinal or hilar adenopathy. There are no pleural or pericardial effusions. The imaged upper abdomen is within normal limits. The imaged osseous structures are within normal limits. Evaluation of the lung yeager shows suboptimal detail due to the aforementioned artifact. No gross masses or large abnormal opacities seem to be present. IMPRESSION: 1. The examination is markedly limited as described above. Pulmonary emboli cannot be ruled out. Follow-up is recommended. 2. No gross pulmonary parenchymal abnormality is noted on this limited exam as described above. Follow-up exam is recommended if clinically relevant. 3. Thyroid gland nodule as described above. Thyroid ultrasonography is recommended. 4. Other findings as described above. <Electronically signed by Erich Bates > 03/21/21 [id number]
[2021-03-21] MEDS: VANCOMYCIN HCL 1,000 MG, VIAL MATE ADAPTER 1 EACH in NS 250 ML IV SCH ×2 (16:09→18:53)
[2021-03-21] MEDS: SODIUM CHLORIDE NASAL 0.65% SPRAY BTL (OCEAN) SCH ×2 (16:10→21:21)
[2021-03-21] MEDS: predniSONE 20 MG TAB PO SCH (16:10)
--- NOTE | 2021-03-21 17:19 | IPN ---
PROGRESS NOTE DATE: 03/21/2021 SUBJECTIVE: The patient seen and examined at the bedside. Chart has been reviewed. The patient continues to soak 2-3 pads overnight with the vaginal bleeding, appears to be clots. Denies any lightheadedness, dizziness, chest pain. Shortness of breath is unchanged, only slightly improved from admission. Input, output has been negative balance for the past four days. Weight is 218 kilos from admission weight of 224.4 kilograms. The patient has occasional cough, no fever, chills, nausea, vomiting, headaches or diarrhea. Temperature 97.2, pulse 113, respiratory rate 20, blood pressure 123/57, 86% six liters nasal cannula, 92% high flow cannula, 8 liters. Generally, the patient is awake, alert and oriented x3. She does have mild conversational dyspnea, able to speak about six words without difficulty but beyond that, she has to take a minute to take a deep breath. She has no purse lips or tripod positioning, currently at 45 degrees of head of bed elevation. OBJECTIVE: PHYSICAL EXAM: General: The patient has a thick neck, unable to assess for jugular venous distention, no stridor, no carotid bruit, moist mucous membranes. Face is symmetric. Tongue is midline, anicteric, no jaundice, no icterus, but there is a slight pallor. Lungs: Diminished. Bilateral crackles especially on the base with coarse breath sounds. Air entry is improved from admission but still diminished. Heart: S-1, S-2, sinus tachycardia, no murmurs, rubs or gallops. Abdomen: Obese, soft, nontender, nondistended, positive bowel sounds at the four quadrants, no rebound or guarding. Extremities: 3+ pitting edema to the sacrum. LABORATORY DATA: White count 9.8, hemoglobin 9.4, hematocrit 35.8, platelet count 324. Sodium 137, potassium 3.9, chloride 85, bicarb 35, BUN 12, creatinine 1.01, glucose of 85. Microbiology: None. IMAGING STUDIES: Chest x-ray, 03/21/2021: Lower lobe opacity suggesting elements of atelectasis and effusion increased from prior. ASSESSMENT AND PLAN: This is a 50-year-old, morbidly obese female with body mass index of 71.3, possible obesity hypoventilation syndrome, protein C deficiency on chronic Xarelto for history of pulmonary embolism, obstructive sleep apnea, dyslipidemia, hypertension with diastolic dysfunction, ejection fraction of 60-65% with normal left ventricular systolic function, mild aortic stenosis without regurgitation, mild tricuspid regurgitation, moderate pulmonary hypertension, presented to the emergency room on 03/18/2021 due to increasing lower extremity edema and dyspnea, sleeping on her recliner, admitted for acute chf exacerbation and symptomatic anemia due to vaginal bleeding. ACTIVE ISSUES: 1. Acute decompensated diastolic congestive heart failure, ejection fraction at 60-65% on repeat echocardiogram done by Dr. Julio César Lujan in the setting of morbid obesity, BMI of 71 with obstructive sleep apnea and obesity hypoventilation syndrome and moderate pulmonary hypertension. The patient remains hypoxic requiring 6-8 liters of high flow nasal cannula oxygen to keep saturations at 80 to 92% despite net negative balance over the past four days with IV Lasix drip, strict Is and Os and fluid restriction. Cardiac markers were negative for acute coronary ischemia. The patient is kept on strict management, rule out acute infectious process in light of worsening x-ray findings with increased infiltrate at the right base. This has been reviewed by track helper, Dr. Haley Bailey, would suggest them to check a lactic acid, a repeat B-natriuretic peptide and to start on antibiotics. If the patient is becoming septic, to back off slightly on diuresis in light of new infection that is now healthcare-associated and she has been admitted for the past four days. We will check an MRSA screen, given vancomycin and Zosyn empirically, obtain a sputum, blood cultures, urine Legionella, urine Streptococcal antigen in order to determine if we can deescalate the antibiotics. If the MRSA screen is negative, vancomycin could be discontinued. 2. Acute hypoxic respiratory failure secondary to decompensated congestive heart failure, preserved systolic function as well as new healthcare associated pneumonia, probably at the right base. The patient is currently on full conservative management with strict Is and Os daily with fluid restriction, Lasix 40 IV q.6 hourly to have negative balance as well as treatment for healthcare-associated pneumonia with IV vancomycin and Zosyn to be dosed by pharmacy, vancomycin to be discontinued if MRSA screen is negative. 3. Healthcare-associated pneumonia at the right base. Reviewed by Dr. Bailey, track helper but not formally consulted. Recommend checking lactic acid level, antibiotics for now due to worsening hypoxemia. Obtain an arterial blood gas. If elevated CO2 with decrease in pH with acute respiratory acidosis, the patient may be transferred to ICU for BiPAP therapy while we are diuresing and treating for healthcare-associated pneumonia. 4. History of pulmonary embolism and protein C deficiency in the setting of vaginal bleeding currently and symptomatic anemia. We have obtained venous Dopplers, bilateral lower extremities which were negative. The patient currently was taking Xarelto 20 mg q.h.s. which we have held temporarily due to ongoing blood loss via vaginal bleeding. She is currently being evaluated with a V/Q scan but could not fit through the table due to severe obesity with a BMI of 71.3 and a weight 218.9 kilograms. We will ask CT if it is possible to do a CT angio to rule out pulmonary embolism. If negative, may proceed with further evaluation of the vaginal bleeding if needed. 5. Acute blood loss secondary to vaginal bleeding. The patient is soaking through three pads daily. Hemoglobin remains the same at 9.2, 9.1. We will transfuse two units RBC transfusion. The patient is not medically stable to proceed with laparoscopy or any invasive gynecological procedures due to active congestive heart failure. She will not tolerate sedation or intubation in the setting of active heart failure. 6. Moderate pulmonary hypertension with possible restrictive disease secondary to severe obesity complicating her care. 7. Obstructive sleep apnea. May resume on home CPAP at home. 8. Dyslipidemia stable, hypertension stable. MTDD
[2021-03-21] MEDS ORDERED: ENOXAPARIN 120MG/0.8ML SYRINGE (J1650 PER 10MG) SC SCH (18:00)
[2021-03-21] MEDS: MONTELUKAST 10 MG TAB PO SCH (18:49)
[2021-03-21] MEDS: FLUoxetine 20 MG CAP PO SCH (18:49)
[2021-03-21 20:47] LABS: ABG BASE EXCESS 24.2 (-2.0-2.0); ABG HCO3 54.3 MEQ/L (22.0-26.0); ABG O2 SATURATION 99.2 % (95.0-99.0); ABG PARTIAL PRESSURE O2 161.9 mmHg (75.0-100.0); ABG STANDARD HCO3 48.9 MEQ/L (22.0-26.0); ABG TOTAL CO2 57.4 MEQ/L (23.0-31.0); ABG pH (ARTERIAL) 7.348 UNITS (7.350-7.450)
[2021-03-21 21:00] VITALS: O2SAT 88
[2021-03-21] MEDS ORDERED: VANCOMYCIN HCL 1,000 MG, VIAL MATE ADAPTER 1 EACH in NS 250 ML IV SCH (21:00)
[2021-03-21 21:08] LABS: CALCIUM LEVEL 8.5 MG/DL (8.8-10.2); CREATININE FOR GFR 1.13 MG/DL (0.55-1.30); GLOMERULAR FILTRATION RATE 52.3 (>45); MAGNESIUM LEVEL 2.2 MG/DL (1.8-2.4); POTASSIUM SERUM 4.4 MEQ/L (3.5-5.1)
[2021-03-21] MEDS: traZODone 50 MG TAB PO SCH (21:18)
[2021-03-21 21:45] VITALS: BP 112/58
--- NOTE | 2021-03-21 21:54 | IPNPDOC ---
Text Note Date of Service The patient was seen on 03/21/21. NOTE Alerted that patient's PCO2 was 101 and pH was 7.34. Saw and examined the pat iejamie at this time who stated she did not feel more sob than usual. Patient was alert and oriented at this time. In fact, patient states that she feels better today than she did two days ago. Due to critical PCO2 and increasing O2 requirements up to 15L nasal canula, will transfer patient to ICU for bipap. F/U abg 1 hour after initiation of bipap. VS,Fishbone, I+O VS, Fishbone, I+O Laboratory Tests 03/21/21 05:52 03/21/21 19:52 Vital Signs Date Time Temp Pulse Resp B/P (MAP) Pulse Ox O2 Delivery O2 Flow Rate FiO2 03/21/21 18:00 High Flow Cannula 03/21/21 10:00 8.0 03/21/21 08:40 90 03/21/21 07:33 123/57 (79) 03/21/21 06:00 97.2 113 20 I&O- Last 24 Hours up to 6 AM 03/21/21 06:00 Intake Total 1540 ml Output Total 8200 ml Balance -6660 ml JAMIE SIFUENTES Mar 21, 2021 21:54
[2021-03-21 23:55] VITALS: BP 97/53
[2021-03-22] VITALS (20 sets, daily range): BP systolic 91–135; BP diastolic 51–90
[2021-03-22 00:53] LABS: ABG BASE EXCESS 25.4 (-2.0-2.0); ABG HCO3 54.9 MEQ/L (22.0-26.0); ABG O2 SATURATION 98.9 % (95.0-99.0); ABG PARTIAL PRESSURE CO2 94.8 mmHg (35.0-45.0); ABG STANDARD HCO3 50.3 MEQ/L (22.0-26.0); ABG TOTAL CO2 57.9 MEQ/L (23.0-31.0); ABG pH (ARTERIAL) 7.381 UNITS (7.350-7.450)
[2021-03-22] MEDS: IPRATROPIUM 0.5MG/ALBUTEROL 2.5MG INH SOL UD 3ML (DUONEB) NEB SCH ×4 (02:39→19:34)
[2021-03-22 05:55] LABS: ABG BASE EXCESS 21.3 (-2.0-2.0); ABG HCO3 51.4 MEQ/L (22.0-26.0); ABG O2 SATURATION 99.3 % (95.0-99.0); ABG PARTIAL PRESSURE O2 146.7 mmHg (75.0-100.0); ABG STANDARD HCO3 45.6 MEQ/L (22.0-26.0); ABG TOTAL CO2 54.4 MEQ/L (23.0-31.0); ABG pH (ARTERIAL) 7.336 UNITS (7.350-7.450)
[2021-03-22 05:58] LABS: ABG PARTIAL PRESSURE CO2 98.3 mmHg (35.0-45.0)
[2021-03-22] MEDS: ACETAMINOPHEN 650MG ER TAB (TYLENOL ARTHRITIS) PO SCH ×4 (06:00→21:05)
[2021-03-22] MEDS: FUROSEMIDE 40MG/4ML VIAL (J1940) IV SCH ×2 (06:24→17:50)
[2021-03-22] MEDS: PIPERACILLIN/TAZOBACTAM SOD 4.5 GM in D5W MINI-BAG PLUS 50 ML IV SCH ×3 (06:25)
[2021-03-22] MEDS: SLF 3 ML SYR IV SCH ×3 (06:25→21:08)
[2021-03-22 06:48] LABS: BASO % 0.1 % (0.0-1.0); HEMOGLOBIN 9.2 g/dl (12.0-15.5); LYMPH # 0.5 10^3/uL (1.5-5.0); LYMPH % 5.9 % (24.0-44.0); MEAN CORPUSCULAR HGB CONC 26.3 g/dl (32.0-36.5); MEAN CORPUSCULAR VOLUME 83.5 fl (80.0-96.0); MONO # 0.4 10^3/uL (0.0-0.8); MONO % 4.2 % (2.0-8.0); NEUTROPHILS # 7.9 10^3/uL (1.5-8.5); PLATELET COUNT, AUTOMATED 298 10^3/uL (150-450); RED BLOOD COUNT 4.19 10^6/uL (4.00-5.40); WHITE BLOOD COUNT 8.9 10^3/uL (4.0-10.0)
[2021-03-22 07:47] LABS: CALCIUM LEVEL 8.6 MG/DL (8.8-10.2); CREATININE FOR GFR 1.11 MG/DL (0.55-1.30); FREE THYROXINE INDEX 1.9 % (1.3-4.8); GLOMERULAR FILTRATION RATE 53.4 (>45); POTASSIUM SERUM 4.1 MEQ/L (3.5-5.1); THYROID STIMULATING HORMONE 0.772 uIU/ML (0.358-3.740); THYROXINE (T4) 5.2 UG/DL (4.5-12.0)
[2021-03-22] MEDS ORDERED: LIDOCAINE 1% MDV 20ML VIAL As Ordered ONE (08:05)
--- NOTE | 2021-03-22 08:06 | REPVR ---
PROCEDURE INFORMATION: Exam: US Soft Tissue Head and Neck, Thyroid Exam date and time: 03/22/2021 6:26 AM Age: 60 years old Clinical indication: Screening exam; Thyroid nodules; Additional info: Thyroid nodule TECHNIQUE: Imaging protocol: Real-time ultrasound scan of the neck with image documentation. Exam focused on the thyroid. COMPARISON: No relevant prior studies available. FINDINGS: Limitations: Exam reportedly limited due to body habitus, subclavian extension of the thyroid and patient breathing motion. Right thyroid lobe: The right lobe measures 3.5 x 6.4 x 3.2 cm. It contains a 1.2 x 1.2 x 1.2 cm nodule which is difficult to characterize in terms of composition and echotexture due to peripheral rim calcifications, but is wider than tall and smoothly marginated (TIRADS Category 4: Moderately Suspicious). It also contains a 5 x 5 x 4 mm nearly cystic nodule which is predominantly anechoic, smoothly marginated, wider than tall and with a punctate echogenic focus (TIRADS Category 3: Mildly Suspicious). A 5 mm calcification is also present in the gland. Left thyroid lobe: The left lobe measures 3.6 x 5.7 x 3.4 cm. It contains a 1.4 x 1.5 x 1.0 cm cluster of calcifications, which is difficult to characterize in terms of composition and echotexture due to peripheral rim calcifications, but is wider than tall and with ill-defined margins (TIRADS Category 4: Moderately Suspicious). It also contains a 2.2 x 2.3 cm isoechoic nodule in the lower pole with ill-defined margins and without internal echogenic foci). Its composition is not fully characterized without Doppler evaluation, and it was measured in 2 planes only, limiting evaluation of its shape. Isthmus: The isthmus measures 2.3 cm in thickness and contains a 1.6 x 1.7 cm nodule which is isoechoic, smoothly marginated and without internal echogenic foci. Its composition is not fully characterized without Doppler evaluation, and it was measured in 2 planes only, limiting evaluation of its shape. IMPRESSION: Limited exam demonstrating multiple thyroid nodules as above, including a moderately suspicious 1.2 cm nodule on the right which may be followed in 1 year, and a 1.5 cm moderately suspicious cluster of calcifications on the left, meeting size criteria for FNA recommendation. Larger nodules measuring 1.7 cm in the isthmus and 2.3 cm in the left lobe are not fully characterized per TI-RADS criteria, but may also meet criteria for FNA recommendation. (Reference: Regulo) REFERENCES: Regulo MARX, Daniel DAY, Fadi MERAZ et al. ACR Thyroid Imaging, Reporting and Data System (TI-RADS): White Paper of the ACR TI-RADS Committee. J Am Pramod Radiol. 2017; 14: 587-595. Electronically signed by: Epi Felipe On 03/22/2021 08:06:33 AM
[2021-03-22] MEDS: HumaLOG INSULIN (NovoLOG) PER UNIT SC SCH ×4 (10:45→21:00)
[2021-03-22] MEDS: predniSONE 20 MG TAB PO SCH (10:46)
[2021-03-22] MEDS: SENOKOT S TAB PO SCH ×2 (10:50→21:06)
[2021-03-22] MEDS: SODIUM CHLORIDE NASAL 0.65% SPRAY BTL (OCEAN) SCH ×3 (10:50→21:07)
[2021-03-22] MEDS: POTASSIUM CHLORIDE 10 MEQ SR TABLET PO SCH ×2 (10:50→21:06)
[2021-03-22] MEDS: CETIRIZINE (ZyrTEC) 10 MG TAB PO SCH (10:50)
[2021-03-22] MEDS: NYSTATIN 100,000 UNITS/GM TOPICAL PWD 15 GM TOP SCH ×2 (10:51→21:08)
--- NOTE | 2021-03-22 13:59 | IPN ---
PULMONOLGY PROGRESS NOTE DATE: 03/22/2021 SUBJECTIVE: The patient was seen and examined this morning at bedside. She had just woken up and was taken off of the BIPAP which she was on overnight. She remains somewhat lethargic but answers questions and follows commands appropriately. She states that she is feeling a lot better this morning and states "it feels good to be alert and know what is going on". The patient was transferred to the ICU overnight due to worsening hypercarbia and altered mental status. Her pco2 level did improve after being put on BIPAP. OBJECTIVE: PHYSICAL EXAMINATION: VITAL SIGNS: Temperature 98.0 degrees Fahrenheit, temporal, heart rate 97, respiratory rate 24, blood pressure 112/56, sating 99% on BIPAP with FiO2 of 50%. GENERAL APPEARANCE: The patient appears somewhat tired but alert, laying in bed comfortably in no acute distress. HEENT: Normocephalic and atraumatic. Moist mucous membranes. LUNGS: Persistent wheezing throughout the right lung yeager with some rhonchi at the base. She does have some expiratory wheezing on the left which is improved. HEART: Regular rate and rhythm with systolic ejection murmur appreciated over the right upper sternal border. ABDOMEN: Obese, soft, nondistended, nontender. EXTREMITIES: Persistent 3+ pitting edema in the dependent areas including across the posterior thighs and abdominal wall. NEUROLOGICAL: Follows commands appropriately with all extremities spontaneously. LABORATORY DATA: White blood cell count 8.9, hemoglobin 9.2, hematocrit 35.0, platelet count 298. Sodium 137, potassium 4.1, chloride 87, bicarbonate 49, BUN 15, creatinine 1.11, glucose 117, calcium 8.6. IMAGING: CTA of the chest performed yesterday and reviewed this morning does show some infiltrate versus atelectasis in the right lung base and some pulmonary nodules. These were not commented on on the radiology report. The study could not rule out pulmonary embolus due to poor quality and movement. ASSESSMENT AND PLAN: A 60-year-old female who presented with worsening shortness of breath, found to be fluid overloaded, admitted for congestive heart failure exacerbation, now transferred to the ICU for BIPAP due to worsening hypercarbia. 1. Acute hypercarbic hypoxemic respiratory failure secondary to obstructive sleep apnea, obesity, hypoventilation syndrome, and acute exacerbation of congestive heart failure she did continue to diurese well yesterday with a net negative of 2,895 mL. We will further decrease her diuretics today to 40 mg to q. 12 hours of IV Lasix. She likely has diuresed too fast and this is why her respiratory status has been compromised further, because she cannot compensate for the fluid coming so quickly off her lungs. She likely still has some more diuresis left to do, but it would benefit her to do this at a slower rate. She has increased pCO2 not only from her chronic hypercarbia but also from metabolic alkalosis with aggressive diuresis. She will continue overnight on BIPAP 2. Vaginal bleeding with chronic anemia she did receive 2 units PRBCs overnight after having another episode of vaginal bleeding. Her H&H has continued to be stable. Would avoid transfusion unless her hemoglobin starts to drop as her shortness of breath is not likely from the anemia with a stable hemoglobin level. 3. Asthma with acute exacerbation we will continue with oral Prednisone daily and scheduled nebulized treatments. Her wheezing is improved today. 4. Protein C deficiency with history of deep vein thrombosis and current vaginal bleed although she has had some intermittent vaginal bleeding, her hemoglobin levels have remained stable. We cannot rule out P.E. on CT imaging. She would benefit from continuing some level of anticoagulation. Currently she is on Xarelto 20 mg daily. Due to her obesity, it is unclear if this would be a therapeutic dose of Xarelto for full anticoagulation. 5. DVT prophylaxis on Xarelto as noted above. 6. Code status: Full code. Total critical care time spent not including any procedures approx 45 mins I, Haley Bailey, have conducted an independent examination and history of the patient and agree with the plan as detailed by the resident above and discussed during rounds. OANHD
[2021-03-22] MEDS: FLUoxetine 20 MG CAP PO SCH (17:50)
[2021-03-22] MEDS: RIVAROXABAN 20 MG TAB (XARELTO) PO SCH (17:51)
[2021-03-22] MEDS: MONTELUKAST 10 MG TAB PO SCH (17:51)
[2021-03-22] MEDS: traZODone 50 MG TAB PO SCH (21:06)
--- NOTE | 2021-03-22 21:55 | IPNPDOC ---
Subjective Date Seen The patient was seen on 03/22/21. Subjective Chief Complaint/HPI Mrs. Quinonez is a 60 year old female with super morbid obesity, CHELA, Protein C deficiency, and diastolic heart failure who is here with dyspnea. Overnight, patient was found to have increasing oxygen requirements and pCO2 of 101. Patient was transferred to ICU for BIPAP management. Pulmonary/Critical care was consulted. When I saw the patient this morning, she was off the BIPAP. She was anxious and wanted me to reach out to a family member. I contacted Jose Antonio Quinonez who is her and number on file. Objective Physical Examination General Exam: Positive: Alert, Cooperative Eye Exam: Positive: Other Eye Symptoms (exophthalmos) Chest Exam: Positive: Diminished Heart Exam: Positive: Rate Normal, Regular Rhythm Abdomen Exam: Positive: Normal bowel sounds, Soft; Negative: Tenderness Extremity Exam: Positive: Edema Neuro Exam: Positive: Normal Speech Psych Exam: Positive: Anxiety Assessment /Plan Assessment Mrs. Quinonez is a 60 year old female with super morbid obesity, CHELA, Protein C deficiency, and diastolic heart failure who is here with dyspnea. She was found to have acute hypoxic hypercapnic respiratory failure and transferred to the ICU for BIPAP management. Continue with diuresis for decompensated CHF. Plan/VTE VTE Prophylaxis Ordered?: Yes Plan 1. Acute hypoxic hypercapnic respiratory failure -Secondary to her OHS and decompensated CHF -Critical care following, recommendations appreciated -Continue with BIPAP and diuresis 2. Acute decompensated HFpEF -Echocardiogram 03/18/21 demonstrates EF 60 to 65% -Continue with diuresis 3. CHELA/OHS -Critical care following, recommendations appreciated -Patient will need to continue with BIPAP 4. Protein C deficiency and history of PE -Continue with Xarelto -May need to touch base with heme/onc about Xarelto's effectiveness with super morbid obesity 5. Vaginal bleeding -Patient will need to be medical stable (improvement in decompensated CHF) prior to gynecological procedures 6. Thyroid nodule -Patient will need outpatient FNA -TSH 0.772 7. DVT ppx -On Xarelto Disposition: Pending clinical improvement VS, I&O, 24H, Fishbone Vital Signs/I&O Vital Signs Date Time Temp Pulse Resp B/P (MAP) Pulse Ox O2 Delivery O2 Flow Rate FiO2 03/22/21 18:00 101 90 03/22/21 16:00 8.0 03/22/21 16:00 99.2 20 131/59 (83) High Flow Cannula 03/22/21 08:00 50 I&O- Last 24 Hours up to 6 AM 03/22/21 06:00 Intake Total 1970 ml Output Total 4775 ml Balance -2805 ml Laboratory Data 24H LABS Laboratory Tests 2 03/22/21 00:45: Blood Gas Bicarbonate Standard 50.3H, Arterial Blood pH 7.381, Arterial Blood Partial Pressure CO2 94.8*H, Arterial Blood Partial Pressure O2 140.0H, Arterial Blood Total CO2 57.9H, Arterial Blood HCO3 54.9H, Arterial Blood Base Excess 25.4H, Arterial Blood Oxygen Saturation 98.9 03/22/21 05:40: Blood Gas Bicarbonate Standard 45.6H, Arterial Blood pH 7.336L, Arterial Blood Partial Pressure CO2 98.3*H, Arterial Blood Partial Pressure O2 146.7H, Arterial Blood Total CO2 54.4H, Arterial Blood HCO3 51.4H, Arterial Blood Base Excess 21.3H, Arterial Blood Oxygen Saturation 99.3H 03/22/21 06:25: Immature Granulocyte % (Auto) 0.8, Neutrophils (%) (Auto) 89.0H, Lymphocytes (%) (Auto) 5.9L, Monocytes (%) (Auto) 4.2, Eosinophils (%) (Auto) 0.0, Basophils (%) (Auto) 0.1, Neutrophils # (Auto) 7.9, Lymphocytes # (Auto) 0.5L, Monocytes # (Auto) 0.4, Eosinophils # (Auto) 0.0, Basophils # (Auto) 0.0, Nucleated Red Blood Cells % (auto) 0.0, Anion Gap 1L, Glomerular Filtration Rate 53.4, Calcium Level 8.6L, Thyroid Stimulating Hormone (TSH) 0.772, Free Thyroxine Index 1.9, Thyroxine (T4) 5.2, Triiodothyronine (T3) Uptake 36 03/22/21 11:45: Bedside Glucose (Misc Panel) 81 03/22/21 13:50: Lab Scanned Report Miscellaneous Lab 03/22/21 17:39: Bedside Glucose (Misc Panel) 130H 03/22/21 20:52: Bedside Glucose (Misc Panel) 138H CBC/BMP Laboratory Tests 03/22/21 06:25 Microbiology Microbiology 03/21/21 Blood Culture - Preliminary, Resulted No growth after 24 hours . All specim... 03/21/21 Blood Culture - Preliminary, Resulted No growth after 24 hours . All specim... AMANDEEP MERCADO DO Mar 22, 2021 21:55
[2021-03-23] VITALS (10 sets, daily range): BP systolic 102–139; BP diastolic 58–82
[2021-03-23] MEDS: IPRATROPIUM 0.5MG/ALBUTEROL 2.5MG INH SOL UD 3ML (DUONEB) NEB SCH ×4 (02:36→20:33)
[2021-03-23 04:53] LABS: BASO % 0.2 % (0.0-1.0); EOS % 0.2 % (0.0-3.0); HEMATOCRIT 36.1 % (36.0-47.0); HEMOGLOBIN 9.4 g/dl (12.0-15.5); LYMPH # 0.8 10^3/uL (1.5-5.0); LYMPH % 9.5 % (24.0-44.0); MEAN CORPUSCULAR HEMOGLOBIN 22.1 pg (27.0-33.0); MEAN CORPUSCULAR VOLUME 84.7 fl (80.0-96.0); MONO # 0.7 10^3/uL (0.0-0.8); MONO % 8.6 % (2.0-8.0); NEUTROPHILS # 6.7 10^3/uL (1.5-8.5); NEUTROPHILS % 80.8 % (36.0-66.0); PLATELET COUNT, AUTOMATED 321 10^3/uL (150-450); RED BLOOD COUNT 4.26 10^6/uL (4.00-5.40); WHITE BLOOD COUNT 8.3 10^3/uL (4.0-10.0)
[2021-03-23 05:36] LABS: BLOOD UREA NITROGEN 20 MG/DL (7-18); CALCIUM LEVEL 8.1 MG/DL (8.8-10.2); CARBON DIOXIDE LEVEL 50 MEQ/L (21-32); CHLORIDE LEVEL 88 MEQ/L (98-107); CREATININE FOR GFR 1.04 MG/DL (0.55-1.30); GLOMERULAR FILTRATION RATE 57.5 (>45); GLUCOSE, FASTING 100 MG/DL (70-100); POTASSIUM SERUM 4.1 MEQ/L (3.5-5.1); SODIUM LEVEL 137 MEQ/L (136-145)
[2021-03-23] MEDS: ACETAMINOPHEN 650MG ER TAB (TYLENOL ARTHRITIS) PO SCH ×3 (05:44→21:07)
[2021-03-23] MEDS: SLF 3 ML SYR IV SCH ×3 (05:44→23:20)
[2021-03-23] MEDS: FUROSEMIDE 40MG/4ML VIAL (J1940) IV SCH (05:44)
[2021-03-23] MEDS: HumaLOG INSULIN (NovoLOG) PER UNIT SC SCH ×4 (07:07→21:00)
[2021-03-23 07:57] LABS: ABG BASE EXCESS 22.8 (-2.0-2.0); ABG HCO3 52.5 MEQ/L (22.0-26.0); ABG O2 SATURATION 99.6 % (95.0-99.0); ABG PARTIAL PRESSURE O2 198.8 mmHg (75.0-100.0); ABG STANDARD HCO3 47.3 MEQ/L (22.0-26.0); ABG TOTAL CO2 55.5 MEQ/L (23.0-31.0); ABG pH (ARTERIAL) 7.356 UNITS (7.350-7.450)
[2021-03-23] MEDS: acetaZOLAMIDE 250 MG TAB PO SCH ×2 (09:32→17:55)
[2021-03-23] MEDS: POTASSIUM CHLORIDE 10 MEQ SR TABLET PO SCH ×2 (09:32→21:07)
[2021-03-23] MEDS: SENOKOT S TAB PO SCH ×2 (09:32→21:07)
[2021-03-23] MEDS: SODIUM CHLORIDE NASAL 0.65% SPRAY BTL (OCEAN) SCH ×3 (09:33→21:08)
[2021-03-23] MEDS: CETIRIZINE (ZyrTEC) 10 MG TAB PO SCH (09:33)
[2021-03-23] MEDS: predniSONE 20 MG TAB PO SCH (09:33)
[2021-03-23] MEDS: NYSTATIN 100,000 UNITS/GM TOPICAL PWD 15 GM TOP SCH ×2 (09:34→21:08)
[2021-03-23] MEDS: busPIRone 5 MG TAB PO PRN (13:52)
--- NOTE | 2021-03-23 16:49 | IPNPDOC ---
Subjective Date Seen The patient was seen on 03/23/21. Subjective Chief Complaint/HPI Mrs. Quinonez is a 60 year old female with super morbid obesity, CHELA, Protein C deficiency, and diastolic heart failure who is here with dyspnea. Patient was seen in the morning. This morning, she was feeling better and was more awake. Patient to do table top BIPAP today. Objective Physical Examination General Exam: Positive: Alert, Cooperative Eye Exam: Positive: Other Eye Symptoms (exophthalmos) Chest Exam: Positive: Diminished Heart Exam: Positive: Rate Normal, Regular Rhythm Abdomen Exam: Positive: Normal bowel sounds, Soft; Negative: Tenderness Extremity Exam: Positive: Edema Neuro Exam: Positive: Normal Speech Psych Exam: Positive: Mood NL Assessment /Plan Assessment Mrs. Quinonez is a 60 year old female with super morbid obesity, CHELA, Protein C deficiency, and diastolic heart failure who is here with dyspnea. She was found to have acute hypoxic hypercapnic respiratory failure and transferred to the ICU for BIPAP management. Continue with diuresis for decompensated CHF. Plan/VTE VTE Prophylaxis Ordered?: Yes Plan 1. Acute hypoxic hypercapnic respiratory failure -Secondary to her OHS and decompensated CHF -Critical care following, recommendations appreciated -Continue with BIPAP and diuresis 2. Acute decompensated HFpEF -Echocardiogram 03/18/21 demonstrates EF 60 to 65% -Continue with diuresis -Critical care switched from furosemide to acetazolamide 3. Metabolic alkalosis -Bicarb has been trending upwards -May be secondary to respiratory acidosis (from CHELA/OHS) and contraction alkalosis -On acetazolamide 4. CHELA/OHS -Critical care following, recommendations appreciated -Patient will need to continue with BIPAP 5. Protein C deficiency and history of PE -Continue with Xarelto -May need to touch base with heme/onc about Xarelto's effectiveness with super morbid obesity 6. Vaginal bleeding -Patient will need to be medical stable (improvement in decompensated CHF) prior to gynecological procedures 7. Thyroid nodule -Patient will need outpatient FNA -TSH 0.772 8. DVT ppx -On Xarelto Disposition: Pending clinical improvement VS, I&O, 24H, Fishbone Vital Signs/I&O Vital Signs Date Time Temp Pulse Resp B/P (MAP) Pulse Ox O2 Delivery O2 Flow Rate FiO2 03/23/21 16:00 2.0 35 03/23/21 16:00 98.0 98 26 120/64 (82) 96 NIPPV (BIPAP/CPAP) I&O- Last 24 Hours up to 6 AM 03/23/21 06:00 Intake Total 920 ml Output Total 3775 ml Balance -2855 ml Laboratory Data 24H LABS Laboratory Tests 2 03/22/21 17:39: Bedside Glucose (Misc Panel) 130H 03/22/21 20:52: Bedside Glucose (Misc Panel) 138H 03/23/21 04:33: Immature Granulocyte % (Auto) 0.7, Neutrophils (%) (Auto) 80.8H, Lymphocytes (%) (Auto) 9.5L, Monocytes (%) (Auto) 8.6H, Eosinophils (%) (Auto) 0.2, Basophils (%) (Auto) 0.2, Neutrophils # (Auto) 6.7, Lymphocytes # (Auto) 0.8L, Monocytes # (Auto) 0.7, Eosinophils # (Auto) 0.0, Basophils # (Auto) 0.0, Nucleated Red Blood Cells % (auto) 0.0, Anion Gap , Glomerular Filtration Rate 57.5, Calcium Level 8.1L 03/23/21 07:42: Blood Gas Bicarbonate Standard 47.3H, Arterial Blood pH 7.356, Arterial Blood Partial Pressure CO2 96.0*H, Arterial Blood Partial Pressure O2 198.8H, Arterial Blood Total CO2 55.5H, Arterial Blood HCO3 52.5H, Arterial Blood Base Excess 22.8H, Arterial Blood Oxygen Saturation 99.6H 03/23/21 13:46: Bedside Glucose (Misc Panel) 125H CBC/BMP Laboratory Tests 03/23/21 04:33 Microbiology Microbiology 03/21/21 Blood Culture - Preliminary, Resulted No Growth after 48 hours. All Specime... 03/21/21 Blood Culture - Preliminary, Resulted No Growth after 48 hours. All Specime... AMANDEEP MERCADO DO Mar 23, 2021 16:49
[2021-03-23] MEDS: VENLAFAXINE **XR** 37.5 MG CAPSULE PO SCH (17:55)
[2021-03-23] MEDS: RIVAROXABAN 20 MG TAB (XARELTO) PO SCH (17:55)
[2021-03-23] MEDS: MONTELUKAST 10 MG TAB PO SCH (17:55)
[2021-03-23] MEDS: traZODone 50 MG TAB PO SCH (21:07)
[2021-03-24] VITALS: BP 111/64
[2021-03-24] MEDS: IPRATROPIUM 0.5MG/ALBUTEROL 2.5MG INH SOL UD 3ML (DUONEB) NEB SCH ×4 (01:20→20:20)
[2021-03-24 04:00] VITALS: BP 135/76
[2021-03-24 04:37] LABS: BASO % 0.2 % (0.0-1.0); EOS % 0.3 % (0.0-3.0); HEMATOCRIT 39.1 % (36.0-47.0); HEMOGLOBIN 10.1 g/dl (12.0-15.5); LYMPH # 0.9 10^3/uL (1.5-5.0); LYMPH % 9.2 % (24.0-44.0); MEAN CORPUSCULAR HEMOGLOBIN 22.1 pg (27.0-33.0); MEAN CORPUSCULAR HGB CONC 25.8 g/dl (32.0-36.5); MEAN CORPUSCULAR VOLUME 85.7 fl (80.0-96.0); MONO # 0.6 10^3/uL (0.0-0.8); MONO % 6.1 % (2.0-8.0); NEUTROPHILS # 7.8 10^3/uL (1.5-8.5); NEUTROPHILS % 83.6 % (36.0-66.0); PLATELET COUNT, AUTOMATED 330 10^3/uL (150-450); RED BLOOD COUNT 4.56 10^6/uL (4.00-5.40); WHITE BLOOD COUNT 9.4 10^3/uL (4.0-10.0)
[2021-03-24 05:02] LABS: BLOOD UREA NITROGEN 24 MG/DL (7-18); CALCIUM LEVEL 8.3 MG/DL (8.8-10.2); CARBON DIOXIDE LEVEL 41 MEQ/L (21-32); CHLORIDE LEVEL 90 MEQ/L (98-107); GLOMERULAR FILTRATION RATE > 60.0 (>45); GLUCOSE, FASTING 96 MG/DL (70-100); SODIUM LEVEL 135 MEQ/L (136-145)
[2021-03-24] MEDS: ACETAMINOPHEN 650MG ER TAB (TYLENOL ARTHRITIS) PO SCH ×3 (05:51→21:42)
[2021-03-24] MEDS: SLF 3 ML SYR IV SCH ×3 (05:51→21:44)
[2021-03-24 05:54] LABS: ABG BASE EXCESS 13.6 (-2.0-2.0); ABG HCO3 43.3 MEQ/L (22.0-26.0); ABG O2 SATURATION 97.2 % (95.0-99.0); ABG PARTIAL PRESSURE O2 95.7 mmHg (75.0-100.0); ABG STANDARD HCO3 37.4 MEQ/L (22.0-26.0); ABG TOTAL CO2 46.1 MEQ/L (23.0-31.0); ABG pH (ARTERIAL) 7.289 UNITS (7.350-7.450)
[2021-03-24 05:56] LABS: ABG PARTIAL PRESSURE CO2 92.3 mmHg (35.0-45.0)
[2021-03-24] MEDS: HumaLOG INSULIN (NovoLOG) PER UNIT SC SCH ×4 (07:30→21:00)
--- NOTE | 2021-03-24 07:35 | IPN ---
PULMONARY PROGRESS NOTE DATE: 03/23/2021 SUBJECTIVE: The patient was seen and examined this morning at bedside. She states she is feeling improvement this morning, She does still have some shortness of breath anytime she gets up to move. She is currently sitting up in a chair and states it feels good to be putting her feet on the ground. She denies any chest pain or palpitations. OBJECTIVE: VITAL SIGNS: Temperature is 99.1 degrees Fahrenheit temporal, heart rate 86, respiratory rate 21, blood pressure 139/73, O2 sat 100% on four liters via high flow nasal cannula. GENERAL: The patient is sitting up in a chair, alert, in no acute distress. HEENT: Normocephalic, atraumatic. Moist mucous membranes. LUNGS: Lung sounds are diminished bilaterally. Her bilateral expiratory wheezing has greatly improved. HEART: Regular rate and rhythm with a systolic ejection murmur appreciated over the right upper sternal border graded 3/6. ABDOMEN: Obese, soft, nondistended, nontender. Bowel sounds present. EXTREMITIES: 2+ pitting edema in the dependent areas occluding the abdominal wall, posterior thighs. NEUROLOGIC: Follows commands appropriately, moves all extremities spontaneously. No focal deficits appreciated. PSYCHIATRIC: Alert and oriented x3. Mood and affect normal. INTAKE AND OUTPUT: Intake of 1600 mL, output of 3900 mL for a net negative of negative 2300 mL for past 24 hours. LABORATORY DATA: White blood cells 8.3, hemoglobin 9.4, hematocrit 36.1, platelet count 321. Sodium 137, potassium 4.1, chloride 88, bicarb 50, BUN 20, creatinine 1.04, glucose 100, calcium 8.1. ABG: pH 7.356, pCO2 96.0, pO2 198.8. IMAGING: No imaging to review this morning. ASSESSMENT AND PLAN: This is a 60-year-old female who presented with worsening shortness of breath, found to be fluid overloaded, admitted for congestive heart failure now in the ICU due to hypercarbic respiratory failure. 1. Acute hypercarbic hypoxemic respiratory failure secondary to CHELA, OHS and acute exacerbation of CHF. Her hypoxemia has improved greatly and we are titrating her down on the nasal cannula this morning. She continues to receive BiPAP overnight. However, she is persistently hypercarbic. We will give her two doses of acetazolamide today to help the hypercarbia and recheck an ABG tomorrow morning. We will also switch to the table top BiPAP tonight with oxygen bleed in. If she does well on this, she can likely be transferred out of the ICU tomorrow. Regarding her diuretics, we will discontinue them today as she continues to have significant urinary output. I will also take off her fluid restriction today. Overall, I would like her to be net even with her Is and Os in this 24 hour period. Her persistent hypercarbia is likely due to being diuresed too quickly, so giving her a break from the diuresis should help give us time to correct the hypercarbia. 2. Vaginal bleeding with chronic anemia. Her H&H has continued to be stable. Would avoid transfusion unless her hemoglobin starts to drop as her shortness of breath is not likely from symptomatic anemia with a stable hemoglobin level. 3. Protein C deficiency with history of DVT and current vaginal bleed. Despite the intermittent vaginal bleeding, her hemoglobin levels remain stable. Considering her history of DVT and a CT angiography that cannot rule out PE, she would benefit from continuing some level of anticoagulation. Currently she is on Xarelto 20 mg daily. Due to her obesity, it is unclear if this would be a therapeutic dose of Xarelto for full anticoagulation. Primary team can determine whether she needs further anticoagulation or if her vaginal bleed worsens and this would be helped. 4. Asthma with acute exacerbation. Her wheezing has greatly improved today. We will continue the oral prednisone for a total of five days. She also has nebulizer treatments available. 5. DVT prophylaxis: The patient is on Xarelto as noted above. 6. Code status: FULL CODE. I, Haley Bailey, have conducted an independent examination and history of the patient and agree with the above plan as detailed by the resident and discussed during rounds. AMADEO
[2021-03-24 08:00] VITALS: BP 127/68
[2021-03-24] MEDS ORDERED: NS 500 ML IV ONE (08:20)
[2021-03-24] MEDS: SENOKOT S TAB PO SCH ×2 (08:50→21:42)
[2021-03-24] MEDS: CETIRIZINE (ZyrTEC) 10 MG TAB PO SCH (08:51)
[2021-03-24] MEDS: predniSONE 20 MG TAB PO SCH (08:51)
[2021-03-24] MEDS: SODIUM CHLORIDE NASAL 0.65% SPRAY BTL (OCEAN) SCH ×3 (08:51→21:43)
[2021-03-24] MEDS: POTASSIUM CHLORIDE 10 MEQ SR TABLET PO SCH ×2 (08:51→21:42)
[2021-03-24] MEDS: NYSTATIN 100,000 UNITS/GM TOPICAL PWD 15 GM TOP SCH ×2 (08:52→21:43)
--- NOTE | 2021-03-24 10:48 | CCN ---
CRITICAL CARE NOTE DATE: 03/24/2021 SUBJECTIVE: The patient was seen and examined this morning during bedside rounds. Yesterday evening the patient was on tabletop BiPAP which she tolerated well. This morning she denies any significant new complaints. She does have some shortness of breath with exertion but at rest is feeling good with her breathing. She was out of bed yesterday to the chair and is planning to go out of bed again today. She has continued to have some vaginal bleeding although so far today is unsure if she has had any significant bleeding noted. She denies any chest pain, has not had any fevers or chills overnight. OBJECTIVE: VITALS: Temperature 98, pulse 90, blood pressure 135/76, O2 saturation 97% on 3 liters nasal cannula. Input 1.8 liters. Output 3.8 liters. Net negative 2 liters with an additional 1.1 liters output since midnight. GENERAL: Patient is a morbidly obese female lying in bed. Awake and alert and oriented times three. She is not in any acute distress and is speaking in full sentences. HEENT: Normocephalic, atraumatic. Moist mucous membranes noted. NECK: Neck is supple. Trachea midline. Unable to clearly assess any JVD. CARDIAC: Regular rate and rhythm, normal S1 and S2 with a faint systolic ejection murmur noted. LUNGS: There are diminished breath sounds bilaterally. There is no significant wheezing or rhonchi noted. There are a few crackles. ABDOMEN: Obese, soft, nontender, nondistended. No palpable mass. EXTREMITIES: The patient has pitting anasarca in the dependent areas but there is improvement in her lower extremity edema with wrinkling noted in her legs. There are chronic venous stasis changes noted. LABS: WBC 9.4, hemoglobin 10.1, platelets 330. Chemistries: Sodium 135, potassium 4.0, chloride 90, bicarb is 41, BUN is 24, creatinine 1.00, glucose 96, calcium is 8.3. ABG: pH is 7.289, pCO2 92.3, pO2 95.7. ASSESSMENT AND PLAN: Ms. Quinonez is a 60-year-old female with a past medical history of DVT and protein C deficiency, asthma, obstructive sleep apnea, noncompliant with CPAP, hypertension, CHF who presented with complaints of worsening shortness of breath and lower extremity edema. The patient was found to be in decompensated heart failure with [id number] hypoxemic and hypercarbic respiratory failure. 1. Snglo-[id number] hypercarbic and hypoxemic respiratory failure secondary to acute exacerbation of CHF. The patient has CHELA/OHS which contributes to her chronic hypercarbia and chronic hypoxemia. The patient has been aggressively diuresed and was noted to have increasing hypercarbia in the setting of her diuresis with additional metabolic alkalosis above the usual compensation. She was given acetazolamide yesterday to help with her metabolic alkalosis and there was some improvement in her bicarb today. She is more acidotic although her pCO2 has been trending down likely because of the acetazolamide given and the improvement in her serum bicarbonate. - The patient was given only one dose of 40 mg IV Lasix yesterday and she continues to be significantly net negative. Overnight she is still diuresing very well without additional diuretics given today. Would continue to hold her diuretics today and will give 500 mL of normal saline as she is becoming mildly hyponatremic and hypochloremic. She does also have mild elevation of her BUN and creatinine as well likely secondary to her diuresis. - The patient's oxygenation has been improving. She has been weaned down to anywhere from 2 to 3 liters nasal cannula oxygen during the day. Suspect she will need chronic oxygen supplementation on discharge given her chronic hypoxemia secondary to her OHS. - The patient is on BiPAP. She was on tabletop overnight which she tolerated well. Would continue her with tabletop BiPAP at the current settings of 16/8 with O2 bleed-in to maintain O2 sat goal of 88-92%. She can continue with her BiPAP at night and with naps. - We will continue to encourage the patient to be out of bed to chair and incentive spirometer as she does also likely have a significant degree of atelectasis contributing to her hypoxia as well. 2. Asthma with acute exacerbation. The patient is on oral Prednisone 40 mg daily for a total of five-day course. She is also on nebulized bronchodilators. She has had improvement in the previously noted wheezing as well as in her cough. 3. Vaginal bleeding with chronic anemia. - The patient has received 2 units of PRBC transfusion during her admission although her hemoglobin and hematocrit has remained stable. Would hold off on transfusion unless she has more active brisk bleeding or hemoglobin less than 7. - The patient does need followup with [employer] SPOT W[employer]ER given her abnormal uterine bleeding. 4. History of protein C deficiency with DVT, on chronic anticoagulation. - The patient is on Xarelto for anticoagulation currently. Would continue despite the intermittent vaginal bleeding unless she has more massive bleeding given the risk of recurrent thromboembolic event with protein C deficiency. Given her morbid obesity, however, Xarelto has not been fully studied in patients above 120 kilograms. She can consider followup as an outpatient with hematology/oncology to determine if she does have actual protein C deficiency and her long-term anticoagulation needs. Would also be able to assess whether or not she is fully and adequately anticoagulated with Xarelto given her morbid obesity. DVT prophylaxis on anticoagulation. CODE STATUS: FULL CODE. Total critical care time spent not including procedures approximately 45 minutes. MTDD
--- NOTE | 2021-03-24 13:23 | IPNPDOC ---
Subjective Date Seen The patient was seen on 03/24/21. Subjective Chief Complaint/HPI Mrs. Quinonez is a 60 year old female with super morbid obesity, CHELA, Protein C deficiency, and diastolic heart failure who is here with dyspnea. She was seen this morning. She denies chest pain. She reports dyspnea with exertion. Objective Physical Examination General Exam: Positive: Alert, Cooperative Eye Exam: Positive: Other Eye Symptoms (exophthalmos) Chest Exam: Positive: Diminished Heart Exam: Positive: Rate Normal, Regular Rhythm Abdomen Exam: Positive: Normal bowel sounds, Soft; Negative: Tenderness Extremity Exam: Positive: Edema Neuro Exam: Positive: Normal Speech Psych Exam: Positive: Mood NL Assessment /Plan Assessment Mrs. Quinonez is a 60 year old female with super morbid obesity, CHELA, Protein C deficiency, and diastolic heart failure who is here with dyspnea. She was found to have acute hypoxic hypercapnic respiratory failure and transferred to the ICU for BIPAP management. She has improved and has moved to med/surg Plan/VTE VTE Prophylaxis Ordered?: Yes Plan 1. Acute hypoxic hypercapnic respiratory failure -Secondary to her OHS and decompensated CHF -Critical care following, recommendations appreciated -Continue with BIPAP -Patient is diuresing well without diuretic, continue to monitor I/O's and daily weights 2. Acute decompensated HFpEF -Echocardiogram 03/18/21 demonstrates EF 60 to 65% -Patient is diuresing well without diuretic, continue to monitor I/O's and daily weights 3. Metabolic alkalosis -Bicarb has been trending upwards -May be secondary to respiratory acidosis (from CHELA/OHS) and contraction alkalos is -Patient became slightly acidotic with acetazolamide. Held at this time 4. CHELA/OHS -Pulm/Critical care following, recommendations appreciated -Patient will need to continue with BIPAP -Patient may need supplemental oxygen continuously 5. Protein C deficiency and history of PE -Continue with Xarelto -May need to touch base with heme/onc outpatient about Xarelto's effectiveness with super morbid obesity 6. Vaginal bleeding -Patient will need to be medical stable (improvement in decompensated CHF) prior to gynecological procedures 7. Thyroid nodule -Patient will need outpatient FNA -TSH 0.772 8. DVT ppx -On Xarelto Disposition: Pending clinical improvement VS, I&O, 24H, Fishbone Vital Signs/I&O Vital Signs Date Time Temp Pulse Resp B/P (MAP) Pulse Ox O2 Delivery O2 Flow Rate FiO2 03/24/21 08:00 3.0 03/24/21 08:00 98.3 90 20 127/68 (87) 100 Nasal Cannula 03/23/21 16:00 35 I&O- Last 24 Hours up to 6 AM 03/24/21 05:59 Intake Total 1800 ml Output Total 4190 ml Balance -2390 ml Laboratory Data 24H LABS Laboratory Tests 2 03/23/21 13:46: Bedside Glucose (Misc Panel) 125H 03/23/21 17:16: Bedside Glucose (Misc Panel) 228H 03/23/21 21:09: Bedside Glucose (Misc Panel) 117H 03/24/21 04:08: Immature Granulocyte % (Auto) 0.6, Neutrophils (%) (Auto) 83.6H, Lymphocytes (%) (Auto) 9.2L, Monocytes (%) (Auto) 6.1, Eosinophils (%) (Auto) 0.3, Basophils (%) (Auto) 0.2, Neutrophils # (Auto) 7.8, Lymphocytes # (Auto) 0.9L, Monocytes # (Auto) 0.6, Eosinophils # (Auto) 0.0, Basophils # (Auto) 0.0, Nucleated Red Blood Cells % (auto) 0.0, Anion Gap 4L, Glomerular Filtration Rate > 60.0, Calcium Level 8.3L 03/24/21 05:44: Blood Gas Bicarbonate Standard 37.4H, Arterial Blood pH 7.289L, Arterial Blood Partial Pressure CO2 92.3*H, Arterial Blood Partial Pressure O2 95.7, Arterial Blood Total CO2 46.1H, Arterial Blood HCO3 43.3H, Arterial Blood Base Excess 13.6H, Arterial Blood Oxygen Saturation 97.2 03/24/21 11:51: Bedside Glucose (Misc Panel) 147H CBC/BMP Laboratory Tests 03/24/21 04:08 Microbiology Microbiology 03/21/21 Blood Culture - Preliminary, Resulted No Growth after 48 hours. All Specime... 03/21/21 Blood Culture - Preliminary, Resulted No Growth after 48 hours. All Specime... AMANDEEP MERCADO DO Mar 24, 2021 13:23
[2021-03-24 13:31] VITALS: BP 131/69
[2021-03-24] MEDS: MONTELUKAST 10 MG TAB PO SCH (18:00)
[2021-03-24] MEDS: VENLAFAXINE **XR** 37.5 MG CAPSULE PO SCH (18:01)
[2021-03-24] MEDS: RIVAROXABAN 20 MG TAB (XARELTO) PO SCH (18:01)
[2021-03-24 19:06] LABS: BODY FLUID CULTURE Not indicated. (.); LEGIONELLA ANTIGEN URINE Negative (Negative); ORGANISM ID Not indicated. (.); SPECIMEN SOURCE Urine (.); URINE STREP PNEUMONIAE ANTIGEN Negative (Negative)
[2021-03-24 20:00] VITALS: BP 120/62
[2021-03-24] MEDS: traZODone 50 MG TAB PO SCH (21:42)
[2021-03-25] MEDS: IPRATROPIUM 0.5MG/ALBUTEROL 2.5MG INH SOL UD 3ML (DUONEB) NEB SCH ×4 (02:57→19:52)
[2021-03-25 04:00] VITALS: BP 133/66
[2021-03-25 04:44] LABS: BASO % 0.3 % (0.0-1.0); EOS % 0.4 % (0.0-3.0); HEMATOCRIT 35.9 % (36.0-47.0); HEMOGLOBIN 9.5 g/dl (12.0-15.5); LYMPH # 1.1 10^3/uL (1.5-5.0); LYMPH % 12.1 % (24.0-44.0); MEAN CORPUSCULAR HGB CONC 26.5 g/dl (32.0-36.5); MEAN CORPUSCULAR VOLUME 86.9 fl (80.0-96.0); MONO # 0.8 10^3/uL (0.0-0.8); MONO % 8.4 % (2.0-8.0); NEUTROPHILS # 7.1 10^3/uL (1.5-8.5); PLATELET COUNT, AUTOMATED 299 10^3/uL (150-450); RED BLOOD COUNT 4.13 10^6/uL (4.00-5.40); WHITE BLOOD COUNT 9.1 10^3/uL (4.0-10.0)
[2021-03-25 05:12] LABS: BLOOD UREA NITROGEN 23 MG/DL (7-18); CALCIUM LEVEL 8.1 MG/DL (8.8-10.2); CARBON DIOXIDE LEVEL 41 MEQ/L (21-32); CHLORIDE LEVEL 96 MEQ/L (98-107); CREATININE FOR GFR 0.83 MG/DL (0.55-1.30); GLOMERULAR FILTRATION RATE > 60.0 (>45); GLUCOSE, FASTING 102 MG/DL (70-100); POTASSIUM SERUM 3.8 MEQ/L (3.5-5.1); SODIUM LEVEL 138 MEQ/L (136-145)
[2021-03-25] MEDS: SLF 3 ML SYR IV SCH ×3 (05:54→21:31)
[2021-03-25] MEDS: ACETAMINOPHEN 650MG ER TAB (TYLENOL ARTHRITIS) PO SCH ×3 (05:54→21:30)
[2021-03-25] MEDS: HumaLOG INSULIN (NovoLOG) PER UNIT SC SCH ×4 (07:15→20:36)
[2021-03-25 08:00] VITALS: BP 123/64
[2021-03-25] MEDS: SENOKOT S TAB PO SCH ×3 (08:48→20:37)
[2021-03-25] MEDS: NYSTATIN 100,000 UNITS/GM TOPICAL PWD 15 GM TOP SCH ×2 (08:48→20:34)
[2021-03-25] MEDS: POTASSIUM CHLORIDE 10 MEQ SR TABLET PO SCH ×2 (08:48→20:33)
[2021-03-25] MEDS: CETIRIZINE (ZyrTEC) 10 MG TAB PO SCH (08:48)
[2021-03-25] MEDS: predniSONE 20 MG TAB PO SCH (08:48)
[2021-03-25] MEDS: SODIUM CHLORIDE NASAL 0.65% SPRAY BTL (OCEAN) SCH ×3 (08:49→20:34)
[2021-03-25 09:26] LABS: ABG BASE EXCESS 10.4 (-2.0-2.0); ABG HCO3 38.5 MEQ/L (22.0-26.0); ABG O2 SATURATION 93.3 % (95.0-99.0); ABG PARTIAL PRESSURE O2 67.5 mmHg (75.0-100.0); ABG STANDARD HCO3 34.1 MEQ/L (22.0-26.0); ABG TOTAL CO2 40.8 MEQ/L (23.0-31.0); ABG pH (ARTERIAL) 7.337 UNITS (7.350-7.450)
[2021-03-25 09:30] LABS: ABG PARTIAL PRESSURE CO2 73.6 mmHg (35.0-45.0)
--- NOTE | 2021-03-25 10:08 | CCN ---
CRITICAL CARE NOTE DATE: 03/25/2021 SUBJECTIVE: The patient is seen and examined this morning during bedside rounds. The patient reports doing well with her breathing. She denies any significant shortness of breath currently although she does have some mild dyspnea with exertion. She has been able to get out of bed and ambulate a few steps with some assistance. At baseline at home she states she was getting around with sitting and scooting around on her rolling walker. She has difficulty ambulating at baseline. She denies any significant coughing. No wheezing. She has not had any chest pain. She does continue to have some significant amounts of vaginal bleeding noted. She has not had any fevers or chills overnight. OBJECTIVE: VITAL SIGNS: Temperature 97.8, pulse 90, respirations 18, blood pressure 133/66, O2 sat 95-97% on three to four liters of BiPAP. She is on 2-3 liters of nasal cannula during the day. INPUT AND OUTPUT: 1.1 liters in, out 3.2 liters, net negative 2.1 liters. GENERAL: The patient is a morbidly obese female sitting in the chair awake and alert and oriented x3. She is not in any acute respiratory distress and is speaking in full sentences. HEENT: Normocephalic, atraumatic. There are moist mucous membranes noted. Mallampati 4. NECK: Supple. Trachea is midline. Unable to clearly assess JVD. CARDIAC: Regular rate and rhythm. Normal S1 and S2 with a loud systolic ejection murmur noted loudest in the right upper sternal border but also in the apex. LUNGS: Diminished breath sounds bilaterally. There is no significant wheezing, rales or rhonchi noted. ABDOMEN: Obese, soft, nontender and nondistended. There is no palpable mass. EXTREMITIES: Patient has improvement in her lower extremity edema with trace edema noted and significant wrinkling and chronic venous stasis skin changes. She does have some mild anasarca in the dependent areas but improved. LABORATORY DATA: WBC is 9.1, hemoglobin is 9.5, platelets are 299,000. Chemistries: Sodium is 138, potassium is 2.8, chloride is 96, bicarbonate is 41, BUN 23, creatinine 0.83, glucose is 102, calcium 8.1. ASSESSMENT AND PLAN: Ms. Quinonez is a 60-year-old female with a past medical history of DVT and protein C deficiency on chronic anticoagulation, asthma, CHELA on CPAP, hypertension, and CHF who presented with complaints of worsening shortness of breath and lower extremity edema. Patient was found to be in decompensated heart failure with acute on chronic hypoxemic and hypercarbic respiratory failure. 1. Acute on chronic hypercarbic and hypoxemic respiratory failure secondary to acute exacerbation of CHF. Patient was aggressively diuresed on her admission and was noted to have increased hypercarbia in the setting of her metabolic alkalosis about the usual compensation secondary to the diuresis. Her diuretics were on hold but she is continuing to auto diurese but she has had improvement in her bicarbonate with administration of Acetazolamide previously. Will continue to hold diuretics as patient is auto diuresing on her own. She was given a small bolus of normal saline yesterday and did have improvement in her hyponatremia and hypochloremia. Would hold off on further fluids but would encourage oral intake. Will follow-up her ABG this morning. She has been doing well and tolerating tabletop BiPAP on the settings of 16/8 and O2 bleed of 3-4 liters a minute. Her current machine at home is a CPAP with a pressure setting of 13 to 14 cm of H2O. She will need to get a new machine as her home machine does not have the capabilities for bilevel settings. She will also eventually need in-lab titration study to further adjust her bilevel settings as an outpatient. Continue with nasal cannula oxygen supplementation during the day to maintain an O2 sat of 88 to 92%. She likely does have chronic hypoxia secondary to her OHS as well as some contribution likely secondary to atelectasis and perhaps some degree restrictive physiology with her morbid obesity. Patient has been able to transition out of bed into a chair and ambulate a few steps. At baseline, patient appears to be somewhat deconditioned. She would likely do well with acute rehab which she is agreeable with. 2. Asthma with an acute exacerbation. Patient will complete prednisone 40 mg five day course. She will continue with nebulized bronchodilators as well. 3. Vaginal bleeding with chronic anemia. Patient did receive 2 units of PRBC transfusion during this admission and her H and H has remained stable. Would consider [employer]PERATOR consult given continued uterine bleeding and continued need for anticoagulation. There is discussion about need for D&C procedure based on ultrasound imaging. From a pulmonary standpoint patient is intermediate to high risk for a low risk procedure. Given her CHELA/OHS would avoid general anesthesia if possible and use spinal/epidural anesthesia if at all possible. If patient does require intubation and mechanical ventilation would limit time under anesthesia and would not extubate unless patient is fully awake and consider extubation to BIPAP. 4. History of protein C deficiency with DVT on chronic anticoagulation. Continue with Xarelto for anticoagulation. Could consider follow-up with Hem/Onc as an outpatient for further evaluation of her long-term anticoagulation needs with the history of possible protein C deficiency. With her morbid obesity as well, would need to determine whether or not she is fully anticoagulated with her NOAC. 5. DVT prophylaxis, on full dose anticoagulation. 6. CODE STATUS: Full code. Total critical care time spent not including procedures approximately 45 minutes. OANHD
[2021-03-25 12:00] VITALS: BP 111/53
[2021-03-25] MEDS: MIRALAX *UNIT DOSE* 17GM PACKET PO PRN (12:45)
--- NOTE | 2021-03-25 15:04 | REP ---
INDICATION: Postmenopausal bleeding, lost weight (may be easier). COMPARISON: 03/20/2021. TECHNIQUE: Transvaginal pelvic ultrasound performed. Study is limited due to patient body habitus. FINDINGS: Uterus measures 8.4 x 3.3 x 3.6 cm. The endometrium appears thickened, AP diameter is 12 mm. The ovaries could not be visualized. There is no definite adnexal mass or free fluid. IMPRESSION: Thickened endometrium 12 mm, this may indicate endometrial hyperplasia or neoplasm. No gross adnexal mass or free fluid. <Electronically signed by Nathan Vivas > 03/25/21 [id number]
[2021-03-25 16:00] VITALS: BP 120/65
--- NOTE | 2021-03-25 16:12 | IPNPDOC ---
Subjective Date Seen The patient was seen on 03/25/21. Subjective Chief Complaint/HPI Mrs. Quinonez is a 60 year old female with super morbid obesity, CHELA, Protein C deficiency, and diastolic heart failure who is here with dyspnea. She was seen in the morning. She denies any chest pain or dyspnea. She tells me that she never completed menopause. When she was 57 yo, her period stopped for 11 months. Then, on the 12 month, her period restarted. Since then, it would continue every month regularly and bleed for 7 to 10 days. Repeat US pelvis demonstrates thickened endometrium 12mm which may indicate endometrial hyperplasia or neop lasm. I reached out to OBGYN, Dr. Arroyo, who was considering biopsy vs D&C. Since patient was in the hospital, leaning more towards D&C. Patient is at risk respiratory prajapati. Spoke with Dr. Bailey about pulmonary clearance. Recommending avoiding general anesthesia if possible. If it has to be under general anesthesia, she may need to be on the ventilator for a period to stabilize, then extubate to BIPAP. The safest would be to spinal or epidural. I spoke with Dr. Arroyo. She was okay to do the D&C with spinal or epidural, but she wants to try biopsy first, and then if indicated D&C. Objective Physical Examination General Exam: Positive: Alert, Cooperative Eye Exam: Positive: Other Eye Symptoms (exophthalmos) Chest Exam: Positive: Diminished Heart Exam: Positive: Rate Normal, Regular Rhythm Abdomen Exam: Positive: Normal bowel sounds, Soft; Negative: Tenderness Extremity Exam: Positive: Edema Neuro Exam: Positive: Normal Speech Psych Exam: Positive: Mood NL Assessment /Plan Assessment 1. Acute hypoxic hypercapnic respiratory failure -Secondary to her OHS and decompensated CHF -Critical care following, recommendations appreciated -Continue with BIPAP -Patient is diuresing well without diuretic, continue to monitor I/O's and daily weights -No further diuretics at this time 2. Acute decompensated HFpEF -Echocardiogram 03/18/21 demonstrates EF 60 to 65% -Patient is diuresing well without diuretic, continue to monitor I/O's and daily weights -Patient may need 3L chronically 3. Metabolic alkalosis -Bicarb has been trending upwards -May be secondary to respiratory acidosis (from CHELA/OHS) and contraction alkalosis -Repeat ABG demonstrates improvement 4. CHELA/OHS -Pulm/Critical care following, recommendations appreciated -Patient will need to continue with BIPAP -Patient may need 3L chronically 5. Protein C deficiency and history of PE -Continue with Xarelto -May need to touch base with heme/onc outpatient about Xarelto's effectiveness with super morbid obesity 6. Vaginal bleeding -Consulted VOCATIONAL ADVISER, Dr. Arroyo, recommendations appreciated 7. Thyroid nodule -Patient will need outpatient FNA -TSH 0.772 8. DVT ppx -On Xarelto Disposition: Pending biopsy vs D&C. Patient will need rehab. On discharge, she will need to make sure she has bipap at home. She will also need home oxygen. Plan/VTE VTE Prophylaxis Ordered?: Yes VS, I&O, 24H, Fishbone Vital Signs/I&O Vital Signs Date Time Temp Pulse Resp B/P (MAP) Pulse Ox O2 Delivery O2 Flow Rate FiO2 03/25/21 12:00 3.0 03/25/21 12:00 97.3 98 20 111/53 (72) 94 Nasal Cannula 03/23/21 16:00 35 I&O- Last 24 Hours up to 6 AM 03/25/21 06:00 Intake Total 1205 ml Output Total 3115 ml Balance -1910 ml Laboratory Data 24H LABS Laboratory Tests 2 03/24/21 17:31: Bedside Glucose (Misc Panel) 167H 03/24/21 21:13: Bedside Glucose (Misc Panel) 134H 03/25/21 04:18: Immature Granulocyte % (Auto) 0.8, Neutrophils (%) (Auto) 78.0H, Lymphocytes (%) (Auto) 12.1L, Monocytes (%) (Auto) 8.4H, Eosinophils (%) (Auto) 0.4, Basophils (%) (Auto) 0.3, Neutrophils # (Auto) 7.1, Lymphocytes # (Auto) 1.1L, Monocytes # (Auto) 0.8, Eosinophils # (Auto) 0.0, Basophils # (Auto) 0.0, Nucleated Red Blood Cells % (auto) 0.0, Anion Gap 1L, Glomerular Filtration Rate > 60.0, Calcium Level 8.1L 03/25/21 09:11: Blood Gas Bicarbonate Standard 34.1H, Arterial Blood pH 7.337L, Arterial Blood Partial Pressure CO2 73.6*H, Arterial Blood Partial Pressure O2 67.5L, Arterial Blood Total CO2 40.8H, Arterial Blood HCO3 38.5H, Arterial Blood Base Excess 10.4H, Arterial Blood Oxygen Saturation 93.3L 03/25/21 11:20: Bedside Glucose (Misc Panel) 144H CBC/BMP Laboratory Tests 03/25/21 04:18 Microbiology Microbiology 03/21/21 Blood Culture - Preliminary, Resulted No Growth after 72 hours. All specime... 03/21/21 Blood Culture - Preliminary, Resulted No Growth after 72 hours. All specime... AMANDEEP MERCADO DO Mar 25, 2021 16:12
[2021-03-25] MEDS: RIVAROXABAN 20 MG TAB (XARELTO) PO SCH (17:03)
[2021-03-25] MEDS: VENLAFAXINE **XR** 37.5 MG CAPSULE PO SCH (17:03)
[2021-03-25] MEDS: MONTELUKAST 10 MG TAB PO SCH (17:03)
--- NOTE | 2021-03-25 19:11 | CR.PDOC ---
General Date of Consultation: Mar 25, 2021 Consultation REASON FOR CONSULTATION/CHIEF COMPLAINT: heavy post-menopausal bleeding resulting in anemia HISTORY OF PRESENT ILLNESS: Ela is an obese 60yo currently admitted to the ICU on the medicine service for CHF exacerbation with diuresis. She was found during this admission to have heavy post-menopausal bleeding resulting in anemia and was transfused 2u of pRBCs with now stable H/H. She notes that she "never really went through menopause" because in her early 50's she stopped hav ing a menstrual cycle for 11 months but then re-started and even now continues to have monthly menses lasting for 7 days where she soaks 4 or so pads per day. She had a transvaginal ultrasound early on during this admission which was unable to view the uterus. Ultrasound was repeated today and the uterus was seen to have a 1.2mm endometrial stripe (no adnexal masses). Given the need for tissue sampling, I came to the ICU with intention for endometrial biopsy to work up the etiology of the patient's bleeding. ALLERGIES: Please see below. HOME MEDICATIONS: Please see below. PAST MEDICAL HISTORY: 1. Super morbid obesity. 2. Obstructive sleep apnea. 3. Hypertension. 4. Diastolic heart failure with preserved systolic function, ejection fraction of 60-65%. 5. Pulmonary embolism. 6. Protein C deficiency. 7. Depression. 8. Seasonal allergies. PAST SURGICAL HISTORY: Two sections in 1982 and 1984. FAMILY HISTORY: Non-contributory to certified hyperbaric technologist issue SOCIAL HISTORY: , lives with spouse. Has two grown children. No T/E/D. PHYSICAL EXAMINATION: VITAL SIGNS: Please see below. GENERAL APPEARANCE: Obese, WDWN, NAD, A&Ox3, resting comfortably in bed on O2, conversant Pelvic exam (ICU nurses and SALES TRADER Helm present for entire encounter): Procedure note for endometrial biopsy: After informed consent was obtained and patient and I signed the consent form for embx, a lighted grave's speculum was placed in the vagina with patient in a modified "butterfly position" and nurses holding patient's legs and pannus up for visualization. Blood was pooled in the vaginal vault, cervix slightly open with clot protruding from it. Endometrial biopsy pipelle was inserted through the cervical os (uterus sounded with embx pipelle to 7cm) to the fundus of the uterus and sample was obtained. This was repeated 4 more times with quite a bit of tissue and blood retrieved. At that point the procedure was terminated and speculum removed from the vagina. Patient tolerated the procedure well and specimen will be sent to pathology. LABORATORY DATA: Please see below. ASSESSMENT/PLAN: Heavy post-menopausal bleeding resulting in anemia, H/H stable after transfusion of 2u pRBCs. EMS 1.2cm. S/P uncomplicated endometrial biopsy. -I discussed with patient the possibilities for future care based on the possible pathology results. I suspect either hyperplasia or neoplasia will be diagnosed. We discussed that if endometrial cancer is diagnosed, she will require referral to certified hyperbaric technologist oncology to discuss surgical treatment. -It is my understanding that patient will soon be discharged to rehabilitation. I will call her with the results of the biopsy to discuss plan of care for her postmenopausal bleeding Obdulia Arroyo MD Vital Signs/I&O Vital Signs Date Time Temp Pulse Resp B/P (MAP) Pulse Ox O2 Delivery O2 Flow Rate FiO2 03/25/21 16:00 97.0 95 20 120/65 (83) 94 Nasal Cannula 3.0 03/23/21 16:00 35 I&O- Last 24 Hours up to 6 AM 03/25/21 06:00 Intake Total 1205 ml Output Total 3115 ml Balance -1910 ml Laboratory Data Labs 24H Laboratory Tests 2 03/24/21 21:13: Bedside Glucose (Misc Panel) 134H 03/25/21 04:18: Immature Granulocyte % (Auto) 0.8, Neutrophils (%) (Auto) 78.0H, Lymphocytes (%) (Auto) 12.1L, Monocytes (%) (Auto) 8.4H, Eosinophils (%) (Auto) 0.4, Basophils (%) (Auto) 0.3, Neutrophils # (Auto) 7.1, Lymphocytes # (Auto) 1.1L, Monocytes # (Auto) 0.8, Eosinophils # (Auto) 0.0, Basophils # (Auto) 0.0, Nucleated Red Blood Cells % (auto) 0.0, Anion Gap 1L, Glomerular Filtration Rate > 60.0, Calcium Level 8.1L 03/25/21 09:11: Blood Gas Bicarbonate Standard 34.1H, Arterial Blood pH 7.337L, Arterial Blood Partial Pressure CO2 73.6*H, Arterial Blood Partial Pressure O2 67.5L, Arterial Blood Total CO2 40.8H, Arterial Blood HCO3 38.5H, Arterial Blood Base Excess 10.4H, Arterial Blood Oxygen Saturation 93.3L 03/25/21 11:20: Bedside Glucose (Misc Panel) 144H 03/25/21 16:44: Bedside Glucose (Misc Panel) 175H CBC/BMP Laboratory Tests 03/25/21 04:18 Microbiology Microbiology 03/21/21 Blood Culture - Preliminary, Resulted No Growth after 72 hours. All specime... 03/21/21 Blood Culture - Preliminary, Resulted No Growth after 72 hours. All specime... Allergies Coded Allergies: No Known Allergies (Verified Allergy, Unknown, 03/18/21) Home Medications Scheduled Acetaminophen (Tylenol Arthritis) 650 Mg Tablet.er, 1,300 MG PO Q8H, (Reported) Cholecalciferol (Vitamin D3) (Vitamin D3) 125 Mcg Capsule, 125 MCG PO QPM, (Reported) TAKES AFTER DINNER Fluoxetine Hcl (Fluoxetine HCl) 20 Mg Capsule, 20 MG PO TAPER, (Reported) HAS ONE MORE DAY OF 40MG AFTER DINNER, THEN 5 DAYS OF 20MG, THEN SWITCHING TO EFFEXOR Lisinopril/Hydrochlorothiazide (Lisinopril-Hctz 20-25 mg Tab) 1 Each Tablet, 1 TAB PO QPM, (Reported) TAKES AFTER DINNER Metformin HCl (Metformin HCl) 500 Mg Tablet, 500 MG PO BID, (Reported) Metoprolol Tartrate (Metoprolol Tartrate) 100 Mg Tablet, 100 MG PO QPM, (Reported) TAKES AFTER DINNER Montelukast Sodium (Montelukast Sodium) 10 Mg Tablet, 10 MG PO QPM, (Reported) TAKES AFTER DINNER Rivaroxaban (Xarelto) 20 Mg Tablet, 20 MG PO QPM, (Reported) TAKES AFTER DINNER Trazodone HCl (Trazodone HCl) 50 Mg Tablet, 50 MG PO QHS, (Reported) CAN TAKE A SECOND TABLET Venlafaxine HCl (Venlafaxine HCl ER) 37.5 Mg Cap.er.24h, 37.5 MG PO QPM, (Reported) HAS NOT STARTED, WILL START AFTER WEENING OFF OF PROZAC Scheduled PRN Albuterol Sulfate (Proair Hfa) 8.5 Gm Hfa.aer.ad, 2 PUFF INH Q4H PRN for SHORTNESS OF BREATH, (Reported) Buspirone HCl (Buspirone HCl) 7.5 Mg Tablet, 7.5 MG PO BID PRN for ANXIETY, (Reported) Fluticasone Propionate (Flonase Allergy Relief) 9.9 Ml [place].susp, 1 SPRAY NA DAILY PRN for NASAL CONGESTION, (Reported) Obdulia Arroyo MD Mar 25, 2021 18:38
[2021-03-25 20:00] VITALS: BP 129/63
[2021-03-25] MEDS: traZODone 50 MG TAB PO SCH (20:33)
[2021-03-25] MEDS: busPIRone 5 MG TAB PO PRN (20:33)
[2021-03-25 21:07] VITALS: BP 121/65
[2021-03-26] MEDS: IPRATROPIUM 0.5MG/ALBUTEROL 2.5MG INH SOL UD 3ML (DUONEB) NEB SCH ×4 (00:03→20:00)
[2021-03-26] MEDS: SLF 3 ML SYR IV SCH ×3 (05:54→21:22)
[2021-03-26] MEDS: ACETAMINOPHEN 650MG ER TAB (TYLENOL ARTHRITIS) PO SCH ×3 (05:54→21:21)
[2021-03-26 06:00] VITALS: BP 134/70
[2021-03-26 06:53] LABS: HEMATOCRIT 36.7 % (36.0-47.0); HEMOGLOBIN 9.5 g/dl (12.0-15.5); MEAN CORPUSCULAR HEMOGLOBIN 22.4 pg (27.0-33.0); MEAN CORPUSCULAR HGB CONC 25.9 g/dl (32.0-36.5); MEAN CORPUSCULAR VOLUME 86.6 fl (80.0-96.0); PLATELET COUNT, AUTOMATED 269 10^3/uL (150-450); RED BLOOD COUNT 4.24 10^6/uL (4.00-5.40); WHITE BLOOD COUNT 9.7 10^3/uL (4.0-10.0)
[2021-03-26 07:14] LABS: BLOOD UREA NITROGEN 25 MG/DL (7-18); CARBON DIOXIDE LEVEL 35 MEQ/L (21-32); CHLORIDE LEVEL 102 MEQ/L (98-107); CREATININE FOR GFR 0.78 MG/DL (0.55-1.30); GLOMERULAR FILTRATION RATE > 60.0 (>45); GLUCOSE, FASTING 94 MG/DL (70-100); POTASSIUM SERUM 4.4 MEQ/L (3.5-5.1); SODIUM LEVEL 139 MEQ/L (136-145)
[2021-03-26] MEDS: HumaLOG INSULIN (NovoLOG) PER UNIT SC SCH ×4 (07:30→20:09)
[2021-03-26] MEDS: CETIRIZINE (ZyrTEC) 10 MG TAB PO SCH (08:48)
[2021-03-26] MEDS: SENOKOT S TAB PO SCH ×2 (08:48→21:21)
[2021-03-26] MEDS: SODIUM CHLORIDE NASAL 0.65% SPRAY BTL (OCEAN) SCH ×3 (08:49→21:21)
[2021-03-26] MEDS: NYSTATIN 100,000 UNITS/GM TOPICAL PWD 15 GM TOP SCH ×2 (08:49→21:22)
[2021-03-26] MEDS: predniSONE 20 MG TAB PO SCH (08:49)
[2021-03-26] MEDS: POTASSIUM CHLORIDE 10 MEQ SR TABLET PO SCH ×2 (08:49→21:21)
--- NOTE | 2021-03-26 10:53 | IPNPDOC ---
Subjective Date Seen The patient was seen on 03/26/21. Subjective Chief Complaint/HPI Ela is an obese 60yo currently admitted to the ICU on the medicine service for CHF exacerbation with diuresis. Yesterday afternoon, OBGYN was able to proceed with endometrial biopsy. Otherwise, patient did well. This morning, denies any chest pain or worsening dyspnea. Objective Physical Examination General Exam: Positive: Alert, Cooperative Eye Exam: Positive: Other Eye Symptoms (exophthalmos) Chest Exam: Positive: Diminished Heart Exam: Positive: Rate Normal, Regular Rhythm Abdomen Exam: Positive: Normal bowel sounds, Soft; Negative: Tenderness Extremity Exam: Positive: Edema Neuro Exam: Positive: Normal Speech Psych Exam: Positive: Mood NL Assessment /Plan Assessment Mrs. Quinonez is a 60 year old female with super morbid obesity, CHELA, Protein C deficiency, and diastolic heart failure who is here with dyspnea. She was found to have acute hypoxic hypercapnic respiratory failure and transferred to the ICU for BIPAP management. She has improved and has moved to med/surg. Now pending AR U screen for rehab. Otherwise she has been having postmenopausal bleeding. OBGYN was able to obtain biopsy on 03/25/21. Plan/VTE VTE Prophylaxis Ordered?: Yes Plan 1. Acute hypoxic hypercapnic respiratory failure -Secondary to her OHS and decompensated CHF -Critical care following, recommendations appreciated -Continue with BIPAP -Patient is diuresing well without diuretic, continue to monitor I/O's and daily weights 2. Acute decompensated HFpEF -Echocardiogram 03/18/21 demonstrates EF 60 to 65% -Patient is diuresing well without diuretic, continue to monitor I/O's and daily weights -Patient may need 3L chronically 3. Metabolic alkalosis -Bicarb has been trending upwards -May be secondary to respiratory acidosis (from CHELA/OHS) and contraction alkalosis -Repeat ABG demonstrates improvement 4. CHELA/OHS -Pulm/Critical care following, recommendations appreciated -Patient will need to continue with BIPAP -Patient may need 3L chronically 5. Protein C deficiency and history of PE -Continue with Xarelto -May need to touch base with heme/onc outpatient about Xarelto's effectiveness with super morbid obesity 6. Vaginal bleeding -Consulted TNT LINE SUPERVISOR, Dr. Arroyo, recommendations appreciated -Biopsy obtained, patient will need to follow up with TNT LINE SUPERVISOR outpatient 7. Thyroid nodule -Patient will need outpatient FNA -TSH 0.772 8. DVT ppx -On Xarelto Disposition: Patient will need rehab. On discharge, she will need to make sure she has bipap at home. She will also need home oxygen. She would need outpatient referrals to Pulm for CHELA/OHS, TNT LINE SUPERVISOR for biopsy results/workup for post menopausal bleeding, and Endocrinology for FNA of thyroid. VS, I&O, 24H, Fishbone Vital Signs/I&O Vital Signs Date Time Temp Pulse Resp B/P (MAP) Pulse Ox O2 Delivery O2 Flow Rate FiO2 03/26/21 06:00 96.7 89 19 134/70 (91) 93 Nasal Cannula 3.0 03/23/21 16:00 35 I&O- Last 24 Hours up to 6 AM 03/26/21 06:00 Intake Total 1440 ml Output Total 2350 ml Balance -910 ml Laboratory Data 24H LABS Laboratory Tests 2 03/25/21 11:20: Bedside Glucose (Misc Panel) 144H 03/25/21 16:44: Bedside Glucose (Misc Panel) 175H 03/25/21 20:36: Bedside Glucose (Misc Panel) 134H 03/26/21 06:35: Nucleated Red Blood Cells % (auto) 0.0, Anion Gap 2L, Glomerular Filtration Rate > 60.0, Calcium Level 8.0L CBC/BMP Laboratory Tests 03/26/21 06:35 Microbiology Microbiology 03/21/21 Blood Culture - Preliminary, Resulted No Growth after 72 hours. All specime... 03/21/21 Blood Culture - Preliminary, Resulted No Growth after 72 hours. All specime... AMANDEEP MERCADO DO Mar 26, 2021 10:53
[2021-03-26] MEDS: ADVAIR HFA 115/21MCG INHALER INH SCH ×2 (11:14→19:26)
--- NOTE | 2021-03-26 11:53 | IPN ---
PROGRESS NOTE DATE: 03/26/2021 SUBJECTIVE: The patient was seen and examined this morning during bedside rounds. Patient was seen yesterday by OB and she was able to have her endometrial biopsy performed at the bedside in the ICU. She did tolerate that well, although did report some cramping post procedure that has improved. She denies any significant abdominal pain currently. No nausea or vomiting. She does have some cough, occasionally productive of white mucous. She has not had any chest pain. She denies noticing any significant wheezing. She has not had any fevers or chills overnight. PHYSICAL EXAMINATION: VITALS: Temperature 96.7, pulse 89, respirations 19, blood pressure 134/70, O2 sat 93% on 3 liters nasal cannula. INTAKE/OUTPUT: In 1.5 liters. Out 3.1 liters, net negative 1.6 liters. GENERAL: Patient is a morbidly obese female, lying in the bed, awake, alert and oriented x3. She is not in any acute respiratory distress and is speaking in full sentences. HEENT: Normocephalic, atraumatic. Moist mucous membranes noted. Mallampati is 4. Neck is supple. Trachea is midline. No palpable cervical adenopathy. CARDIAC: Regular rate and rhythm. Normal S1, S2 with a loud systolic ejection murmur in the right upper sternal border, but also auscultated in the apex. LUNGS: Diminished breath sounds bilaterally. No wheezing, rales or rhonchi noted. ABDOMEN: Obese, soft, nontender, non-distended. No palpable masses. EXTREMITIES: Patient has trace edema in the lower extremity with significant wrinkling and chronic venous stasis skin changes. She does have mild anasarca in the deep tendon areas, which are improving. LABORATORY DATA: WBC 9.7, hemoglobin 9.5, platelets 269,000. Sodium 139, potassium 4.4, chloride 102, bicarb 35, BUN 25, creatinine 0.78, glucose 94. ABG yesterday: pH 7.337, pCO2 of 73.6, pO2 of 67.5. IMAGING STUDIES: Pelvic ultrasound showed endometrium thickening either neoplasm or endometrial hyperplasia. ASSESSMENT AND PLAN: Mrs. Quinonez is a 60-year-old female with a past medical history of DVT and Protein C deficiency on chronic anticoagulation, asthma, CHELA on CPAP, hypertension and CHF, who presented with decompensated heart failure with acute on chronic hypoxic and hypercarbic respiratory failure. 1). Acute on chronic hypercarbic and hypoxic respiratory failure secondary to acute exacerbation of CHF: Patient is status post aggressive diuresis and although she has been off diuretics for the past several days, she continues to be auto-diuresing. She did have additional metabolic alkalosis on top of the usual compensation for her respiratory acidosis, although this has improved, status post Acetazolamide administration. -Will continue to hold diuretics as patient is auto-diuresing on her own. She did not appear to be on any Lasix chronically as an outpatient. She will need follow-up with her primary care provider and potentially would need a low dose of diuretics as an outpatient depending on her fluid status. -Patient appears to be compensating well now with her chronic hypercarbia with a table top BiPAP on settings of 16/8 and an O2 bleed of 3 to 4 liters a minute. She will need BiPAP machine to go home with as her current machine is a CPAP only. She will also eventually need it in lab titration study for further adjustments of her bilateral settings as an outpatient. -Will continue with nasal cannula oxygen supplementation during the day. She does have chronic hypoxia secondary to her OHS as well as some contribution likely secondary to atelectasis and perhaps restrictive physiology with her morbid obesity. Will continue to encourage her to use incentive spirometer and out of bed to chair as tolerated. 2). Asthma: Patient had acute exacerbation on admission. She will be completing a 5-day course of prednisone. Will add Advair for maintenance inhaler and continue with nebulized bronchodilators as needed. 3). History of protein C deficiency with DVT on chronic anticoagulation. -Continue with Xarelto for anticoagulation. Can consider follow-up as an outpatient with HEM/ONC for further evaluation of long-term anticoagulation needs as well as continuing with the NOAC given her morbid obesity. 4). Code status: Full code. Patient is being planned for discharge to acute rehab given her deconditioning at baseline. Please do not hesitate to call with any further questions or concerns. She can follow-up with pulmonary as an outpatient for her sleep once discharged.
[2021-03-26 14:00] VITALS: BP 121/68
[2021-03-26] MEDS: VENLAFAXINE **XR** 37.5 MG CAPSULE PO SCH (17:21)
[2021-03-26] MEDS: MONTELUKAST 10 MG TAB PO SCH (17:21)
[2021-03-26] MEDS: RIVAROXABAN 20 MG TAB (XARELTO) PO SCH (17:21)
[2021-03-26] MEDS: traZODone 50 MG TAB PO SCH (21:21)
[2021-03-26 22:00] VITALS: BP 122/70
[2021-03-27] MEDS: IPRATROPIUM 0.5MG/ALBUTEROL 2.5MG INH SOL UD 3ML (DUONEB) NEB SCH ×2 (02:38→07:15)
[2021-03-27] MEDS: ACETAMINOPHEN 650MG ER TAB (TYLENOL ARTHRITIS) PO SCH ×3 (05:36→21:24)
[2021-03-27] MEDS: SLF 3 ML SYR IV SCH ×3 (05:36→22:00)
[2021-03-27 06:00] VITALS: BP 130/71
[2021-03-27 07:07] LABS: HEMATOCRIT 34.6 % (36.0-47.0); HEMOGLOBIN 9.1 g/dl (12.0-15.5); MEAN CORPUSCULAR HEMOGLOBIN 22.7 pg (27.0-33.0); MEAN CORPUSCULAR HGB CONC 26.3 g/dl (32.0-36.5); MEAN CORPUSCULAR VOLUME 86.3 fl (80.0-96.0); PLATELET COUNT, AUTOMATED 265 10^3/uL (150-450); RED BLOOD COUNT 4.01 10^6/uL (4.00-5.40); WHITE BLOOD COUNT 10.2 10^3/uL (4.0-10.0)
[2021-03-27] MEDS: ADVAIR HFA 115/21MCG INHALER INH SCH ×2 (07:15→19:41)
[2021-03-27 07:38] LABS: BLOOD UREA NITROGEN 27 MG/DL (7-18); CARBON DIOXIDE LEVEL 36 MEQ/L (21-32); CHLORIDE LEVEL 102 MEQ/L (98-107); CREATININE FOR GFR 0.78 MG/DL (0.55-1.30); GLOMERULAR FILTRATION RATE > 60.0 (>45); GLUCOSE, FASTING 104 MG/DL (70-100); POTASSIUM SERUM 4.3 MEQ/L (3.5-5.1); SODIUM LEVEL 139 MEQ/L (136-145)
[2021-03-27] MEDS: SENOKOT S TAB PO SCH ×2 (08:47→21:00)
[2021-03-27] MEDS: POTASSIUM CHLORIDE 10 MEQ SR TABLET PO SCH ×2 (08:47→21:23)
[2021-03-27] MEDS: SODIUM CHLORIDE NASAL 0.65% SPRAY BTL (OCEAN) SCH ×3 (08:48→21:24)
[2021-03-27] MEDS: CETIRIZINE (ZyrTEC) 10 MG TAB PO SCH (08:48)
[2021-03-27] MEDS: HumaLOG INSULIN (NovoLOG) PER UNIT SC SCH ×4 (08:48→21:00)
[2021-03-27] MEDS: NYSTATIN 100,000 UNITS/GM TOPICAL PWD 15 GM TOP SCH ×2 (08:49→21:24)
--- NOTE | 2021-03-27 10:30 | IPNPDOC ---
Subjective Date Seen The patient was seen on 03/27/21. Subjective Chief Complaint/HPI Mrs. Quinonez is a 60 year old female with super morbid obesity, CHELA, Protein C deficiency, and diastolic heart failure who is here with dyspnea. This morning, she was feeling well. Denies chest pain or dyspnea. She still has vaginal bleeding, but it has lightened up. Otherwise, will discuss with team on Sunday about ARU Objective Physical Examination General Exam: Positive: Alert, Cooperative Eye Exam: Positive: Other Eye Symptoms (exophthalmos) Chest Exam: Positive: Diminished Heart Exam: Positive: Rate Normal, Regular Rhythm Abdomen Exam: Positive: Normal bowel sounds, Soft; Negative: Tenderness Extremity Exam: Positive: Edema Neuro Exam: Positive: Normal Speech Psych Exam: Positive: Mood NL Assessment /Plan Assessment Mrs. Quinonez is a 60 year old female with super morbid obesity, CHELA, Protein C d eficiency, and diastolic heart failure who is here with dyspnea. She was found to have acute hypoxic hypercapnic respiratory failure and transferred to the ICU for BIPAP management. She has improved and has moved to med/surg. Now pending ARU screen for rehab. Otherwise she has been having postmenopausal bleeding. OBGYN was able to obtain biopsy on 03/25/21. Plan/VTE VTE Prophylaxis Ordered?: Yes Plan 1. Acute hypoxic hypercapnic respiratory failure -Secondary to her OHS and decompensated CHF -Critical care following, recommendations appreciated -Continue with BIPAP -Patient is diuresing well without diuretic, continue to monitor I/O's and daily weights 2. Acute decompensated HFpEF -Echocardiogram 03/18/21 demonstrates EF 60 to 65% -Patient is diuresing well without diuretic, continue to monitor I/O's and daily weights -Patient may need 3L chronically 3. Metabolic alkalosis -Bicarb has been trending upwards -May be secondary to respiratory acidosis (from CHELA/OHS) and contraction alkalosis -Repeat ABG on 03/25 demonstrates improvement 4. CHELA/OHS -Pulm/Critical care following, recommendations appreciated -Patient will need to continue with BIPAP -Patient may need 3L chronically 5. Protein C deficiency and history of PE -Continue with Xarelto -May need to touch base with heme/onc outpatient about Xarelto's effectiveness w ith super morbid obesity 6. Vaginal bleeding -Consulted FLUORESCENT LAMP REPLACER, Dr. Arroyo, recommendations appreciated -Biopsy obtained, patient will need to follow up with FLUORESCENT LAMP REPLACER outpatient 7. Thyroid nodule -Patient will need outpatient FNA -TSH 0.772 8. DVT ppx -On Xarelto Disposition: Patient will need rehab. On discharge, she will need to make sure she has bipap at home. She will also need home oxygen. She would need outpatient referrals to Pulm for CHELA/OHS, FLUORESCENT LAMP REPLACER for biopsy results/workup for post menopausal bleeding, and Endocrinology for FNA of thyroid. VS, I&O, 24H, Fishbone Vital Signs/I&O Vital Signs Date Time Temp Pulse Resp B/P (MAP) Pulse Ox O2 Delivery O2 Flow Rate FiO2 03/27/21 06:00 98.6 96 20 130/71 (90) 90 NIPPV (BIPAP/CPAP) 03/26/21 22:00 3.0 03/23/21 16:00 35 I&O- Last 24 Hours up to 6 AM 03/27/21 06:00 Intake Total 960 ml Output Total 2250 ml Balance -1290 ml Laboratory Data 24H LABS Laboratory Tests 2 03/26/21 12:10: Bedside Glucose (Misc Panel) 137H 03/26/21 16:54: Bedside Glucose (Misc Panel) 142H 03/26/21 19:50: Bedside Glucose (Misc Panel) 171H 03/27/21 06:37: Nucleated Red Blood Cells % (auto) 0.2H, Anion Gap 1L, Glomerular Filtration Rate > 60.0, Calcium Level 8.0L CBC/BMP Laboratory Tests 03/27/21 06:37 Microbiology Microbiology 03/21/21 Blood Culture - Final, Complete NO GROWTH AFTER 5 DAYS 03/21/21 Blood Culture - Final, Complete NO GROWTH AFTER 5 DAYS AMANDEEP MERCADO DO Mar 27, 2021 10:30
[2021-03-27] MEDS ORDERED: IPRATROPIUM 0.5MG/ALBUTEROL 2.5MG INH SOL UD 3ML (DUONEB) NEB PRN (10:40)
[2021-03-27 14:00] VITALS: BP 110/63
[2021-03-27] MEDS: VENLAFAXINE **XR** 37.5 MG CAPSULE PO SCH (17:20)
[2021-03-27] MEDS: MONTELUKAST 10 MG TAB PO SCH (17:20)
[2021-03-27] MEDS: RIVAROXABAN 20 MG TAB (XARELTO) PO SCH (17:20)
[2021-03-27 17:37] LABS: HEMOGLOBIN 9.4 g/dl (12.0-15.5); MEAN CORPUSCULAR HEMOGLOBIN 22.6 pg (27.0-33.0); MEAN CORPUSCULAR HGB CONC 26.1 g/dl (32.0-36.5); MEAN CORPUSCULAR VOLUME 86.5 fl (80.0-96.0); PLATELET COUNT, AUTOMATED 288 10^3/uL (150-450); RED BLOOD COUNT 4.16 10^6/uL (4.00-5.40); WHITE BLOOD COUNT 11.7 10^3/uL (4.0-10.0)
[2021-03-27] MEDS: traZODone 50 MG TAB PO SCH (21:24)
[2021-03-27 22:00] VITALS: BP 140/65
[2021-03-27] MEDS ORDERED: methocarbamoL 500 MG TAB PO ONE (22:40)
[2021-03-28] MEDS: SLF 3 ML SYR IV SCH ×3 (05:51→21:21)
[2021-03-28] MEDS: ACETAMINOPHEN 650MG ER TAB (TYLENOL ARTHRITIS) PO SCH ×3 (05:51→21:20)
[2021-03-28 06:00] VITALS: BP 135/62
[2021-03-28 06:29] LABS: HEMATOCRIT 32.9 % (36.0-47.0); HEMOGLOBIN 8.6 g/dl (12.0-15.5); MEAN CORPUSCULAR HEMOGLOBIN 22.6 pg (27.0-33.0); MEAN CORPUSCULAR HGB CONC 26.1 g/dl (32.0-36.5); MEAN CORPUSCULAR VOLUME 86.6 fl (80.0-96.0); PLATELET COUNT, AUTOMATED 260 10^3/uL (150-450); WHITE BLOOD COUNT 9.3 10^3/uL (4.0-10.0)
[2021-03-28 06:46] LABS: BLOOD UREA NITROGEN 26 MG/DL (7-18); CALCIUM LEVEL 7.4 MG/DL (8.8-10.2); CARBON DIOXIDE LEVEL 37 MEQ/L (21-32); CHLORIDE LEVEL 103 MEQ/L (98-107); CREATININE FOR GFR 0.72 MG/DL (0.55-1.30); GLOMERULAR FILTRATION RATE > 60.0 (>45); GLUCOSE, FASTING 104 MG/DL (70-100); POTASSIUM SERUM 4.5 MEQ/L (3.5-5.1); SODIUM LEVEL 139 MEQ/L (136-145)
[2021-03-28] MEDS: HumaLOG INSULIN (NovoLOG) PER UNIT SC SCH ×4 (07:26→21:00)
[2021-03-28] MEDS: ADVAIR HFA 115/21MCG INHALER INH SCH ×2 (07:43→20:41)
[2021-03-28] MEDS: SENOKOT S TAB PO SCH ×3 (08:33→21:00)
[2021-03-28] MEDS: CETIRIZINE (ZyrTEC) 10 MG TAB PO SCH (08:33)
[2021-03-28] MEDS: POTASSIUM CHLORIDE 10 MEQ SR TABLET PO SCH ×2 (08:33→21:20)
[2021-03-28] MEDS: NYSTATIN 100,000 UNITS/GM TOPICAL PWD 15 GM TOP SCH ×2 (08:34→21:21)
[2021-03-28] MEDS: SODIUM CHLORIDE NASAL 0.65% SPRAY BTL (OCEAN) SCH ×3 (08:34→21:00)
[2021-03-28 14:00] VITALS: BP 127/66
[2021-03-28] MEDS: VENLAFAXINE **XR** 37.5 MG CAPSULE PO SCH (18:13)
[2021-03-28] MEDS: RIVAROXABAN 20 MG TAB (XARELTO) PO SCH (18:13)
[2021-03-28] MEDS: MONTELUKAST 10 MG TAB PO SCH (18:13)
--- NOTE | 2021-03-28 19:14 | IPNPDOC ---
Subjective Date Seen The patient was seen on 03/28/21. Subjective Chief Complaint/HPI Mrs. Quinonez is a 60 year old female with super morbid obesity, CHELA, Protein C deficiency, and diastolic heart failure who is here with dyspnea. This morning, she denies any chest pain or dyspnea. Otherwise pending ARU insurance approval Objective Physical Examination General Exam: Positive: Alert, Cooperative Eye Exam: Positive: Other Eye Symptoms (exophthalmos) Chest Exam: Positive: Diminished Heart Exam: Positive: Rate Normal, Regular Rhythm Abdomen Exam: Positive: Normal bowel sounds, Soft; Negative: Tenderness Extremity Exam: Positive: Edema Neuro Exam: Positive: Normal Speech Psych Exam: Positive: Mood NL Assessment /Plan Assessment Mrs. Quinonez is a 60 year old female with super morbid obesity, CHELA, Protein C deficiency, and diastolic heart failure who is here with dyspnea. She was found to have acute hypoxic hypercapnic respiratory failure and transferred to the ICU for BIPAP management. She has improved and has moved to med/surg. Now pending ARU screen for rehab. Otherwise she has been having postmenopausal bleeding. OBGYN was able to obtain biopsy on 03/25/21. Plan/VTE VTE Prophylaxis Ordered?: Yes Plan 1. Acute hypoxic hypercapnic respiratory failure -Secondary to her OHS and decompensated CHF -Critical care following, recommendations appreciated -Continue with BIPAP -Patient is diuresing well without diuretic, continue to monitor I/O's and daily weights 2. Acute decompensated HFpEF -Echocardiogram 03/18/21 demonstrates EF 60 to 65% -Patient is diuresing well without diuretic, continue to monitor I/O's and daily weights -Patient may need 3L chronically 3. Metabolic alkalosis -Bicarb has been trending upwards -May be secondary to respiratory acidosis (from CHELA/OHS) and contraction alkalosis -Repeat ABG on 03/25 demonstrates improvement 4. CHELA/OHS -Pulm/Critical care following, recommendations appreciated -Patient will need to continue with BIPAP -Patient may need 3L chronically 5. Protein C deficiency and history of PE -Continue with Xarelto -May need to touch base with heme/onc outpatient about Xarelto's effectiveness with super morbid obesity 6. Vaginal bleeding -Consulted FINANCIAL SECRETARY, Dr. Arroyo, recommendations appreciated -Biopsy obtained, patient will need to follow up with FINANCIAL SECRETARY outpatient 7. Thyroid nodule -Patient will need outpatient FNA -TSH 0.772 8. DVT ppx -On Xarelto Disposition: Patient pending VTU insurance approval. On discharge, she will need to make sure she has bipap at home. She will also need home oxygen. She would need outpatient referrals to Pulm for CHELA/OHS, FINANCIAL SECRETARY for biopsy results/workup for post menopausal bleeding, and Endocrinology for FNA of thyroid. VS, I&O, 24H, Fishbone Vital Signs/I&O Vital Signs Date Time Temp Pulse Resp B/P (MAP) Pulse Ox O2 Delivery O2 Flow Rate FiO2 03/28/21 14:00 99.3 116 18 127/66 (86) 93 Nasal Cannula 4.0 03/28/21 01:29 50 I&O- Last 24 Hours up to 6 AM 03/28/21 06:00 Intake Total 1080 ml Output Total 1900 ml Balance -820 ml Laboratory Data 24H LABS Laboratory Tests 2 03/27/21 20:07: Bedside Glucose (Misc Panel) 140H 03/28/21 05:46: Nucleated Red Blood Cells % (auto) 0.2H, Anion Gap , Glomerular Filtration Rate > 60.0, Calcium Level 7.4L 03/28/21 12:02: Bedside Glucose (Misc Panel) 117H 03/28/21 16:34: Bedside Glucose (Misc Panel) 122H CBC/BMP Laboratory Tests 03/28/21 05:46 Microbiology Microbiology 03/21/21 Blood Culture - Final, Complete NO GROWTH AFTER 5 DAYS 03/21/21 Blood Culture - Final, Complete NO GROWTH AFTER 5 DAYS AMANDEEP MERCADO DO Mar 28, 2021 19:14
[2021-03-28] MEDS: traZODone 50 MG TAB PO SCH (21:20)
[2021-03-28 22:00] VITALS: BP 140/76
[2021-03-29] VITALS (7 sets, daily range): BP systolic 110–142; BP diastolic 57–77
[2021-03-29] MEDS: ACETAMINOPHEN 650MG ER TAB (TYLENOL ARTHRITIS) PO SCH ×3 (06:02→21:22)
[2021-03-29] MEDS: SLF 3 ML SYR IV SCH ×3 (06:03→21:24)
[2021-03-29 07:02] LABS: HEMATOCRIT 29.2 % (36.0-47.0); HEMOGLOBIN 7.5 g/dl (12.0-15.5); MEAN CORPUSCULAR HEMOGLOBIN 22.5 pg (27.0-33.0); MEAN CORPUSCULAR HGB CONC 25.7 g/dl (32.0-36.5); MEAN CORPUSCULAR VOLUME 87.7 fl (80.0-96.0); PLATELET COUNT, AUTOMATED 274 10^3/uL (150-450); RED BLOOD COUNT 3.33 10^6/uL (4.00-5.40); WHITE BLOOD COUNT 10.4 10^3/uL (4.0-10.0)
[2021-03-29 07:21] LABS: BLOOD UREA NITROGEN 22 MG/DL (7-18); CALCIUM LEVEL 7.5 MG/DL (8.8-10.2); CARBON DIOXIDE LEVEL 37 MEQ/L (21-32); CHLORIDE LEVEL 105 MEQ/L (98-107); CREATININE FOR GFR 0.65 MG/DL (0.55-1.30); GLOMERULAR FILTRATION RATE > 60.0 (>45); GLUCOSE, FASTING 110 MG/DL (70-100); POTASSIUM SERUM 4.8 MEQ/L (3.5-5.1); SODIUM LEVEL 142 MEQ/L (136-145)
[2021-03-29] MEDS: ADVAIR HFA 115/21MCG INHALER INH SCH ×2 (07:29→19:35)
[2021-03-29] MEDS: POTASSIUM CHLORIDE 10 MEQ SR TABLET PO SCH ×2 (08:41→21:21)
[2021-03-29] MEDS: SENOKOT S TAB PO SCH ×2 (08:42→21:21)
[2021-03-29] MEDS: CETIRIZINE (ZyrTEC) 10 MG TAB PO SCH (08:42)
[2021-03-29] MEDS: SODIUM CHLORIDE NASAL 0.65% SPRAY BTL (OCEAN) SCH ×3 (08:43→21:23)
[2021-03-29] MEDS: HumaLOG INSULIN (NovoLOG) PER UNIT SC SCH ×4 (08:43→21:00)
[2021-03-29] MEDS: NYSTATIN 100,000 UNITS/GM TOPICAL PWD 15 GM TOP SCH ×2 (08:44→21:22)
[2021-03-29] MEDS ORDERED: FUROSEMIDE 40MG/4ML VIAL (J1940) IV ONE (15:00)
--- NOTE | 2021-03-29 15:36 | IPNPDOC ---
Text Note Date of Service The patient was seen on 03/29/21. NOTE OBGYN consult update note Ela is a morbidly obese 60yo currently admitted on the medicine service for CHF exacerbation for diuresis. She was found during this admission to have heavy post-menopausal bleeding resulting in anemia and was transfused 2u of pRBCs. History is significant for PEs for which she takes xarelto. Transvaginal ultrasound showed a 1.2mm endometrial stripe (no adnexal masses). On 03/25 I performed an embx for her when she was in the ICU to work up the etiology of her bleeding. She notes today continued daily bleeding- she states that before admission it was not as heavy as it has been while she has been here. Her clinical situation has improved in that she is no longer in the ICU and O2 has been titrated down to 2L. Vitals wnl, afebrile Gen: WDWN, sitting comfortably in chair Labs: Endometrial biopsy: "predominantly fibrino-hemorrhagic debris mixed with endocervical mucosa. Negative for malignancy." H/H 7.5/29.2 downtrending from 9.5/36.7 Assessment: Ela is a morbidly obese 60yo currently admitted on the medicine service for CHF exacerbation for diuresis incidentally found to have heavy post-menopausal bleeding with thickened endometrial lining. H/H downtrending since transfusion of pRBCs on admission with plan for 2 more units of pRBCs. I suspect that xarelto is exacerbating patient's dysfunctional uterine bleeding. EMBX is non-diagnostic. Plan: -Will start patient on 10mg provera PO BID to stabilize and potentially stop the uterine bleeding. This plan takes into account that patient is a poor surgical candidate and hysteroscopy/D&C at this point may not be necessary since bleeding is chronic. If patient tolerates the provera (I spoke to her about possible mood side effects), I would continue it BID until she is seen for follow up -She may need further tissue sampling in the future, but if bleeding is stopped with the provera, ultimately she could follow up with creative project manager outpatient for repeat embx (or, if imaging shows endometrial lining to decrease, we could even possibly just continue to monitor) -Patient will be receiving another 2u pRBCs Patient has a follow up appointment with me at [facility] scheduled 02 May at 1000 Obdulia Arroyo MD VS,Jaqui, I+O VSJaqui I+O Laboratory Tests 03/29/21 05:30 Vital Signs Date Time Temp Pulse Resp B/P (MAP) Pulse Ox O2 Delivery O2 Flow Rate FiO2 03/29/21 14:00 99.1 107 18 142/72 (95) 90 Nasal Cannula 2.0 03/29/21 03:42 50 I&O- Last 24 Hours up to 6 AM 03/29/21 06:00 Intake Total 1020 ml Output Total 1500 ml Balance -480 ml Obdulia Arroyo MD Mar 29, 2021 15:13
[2021-03-29] MEDS: RIVAROXABAN 20 MG TAB (XARELTO) PO SCH (17:41)
[2021-03-29] MEDS: MONTELUKAST 10 MG TAB PO SCH (17:41)
[2021-03-29] MEDS: VENLAFAXINE **XR** 37.5 MG CAPSULE PO SCH (17:44)
--- NOTE | 2021-03-29 17:47 | IPNPDOC ---
Text Note Date of Service The patient was seen on 03/29/21. NOTE Subjective: Patient reported continuous vaginal bleeding. Patient denied any fever, chills, chest pain or palpitations. Objective: GENERAL APPEARANCE: Obese female HEENT: no scleral icterus, no JVD, EOMI CARDIOVASCULAR: S1S2 LUNGS: Diminished lung sounds bilaterally ABDOMEN: soft & not tender w palpitation MUSCULOSKELETAL: no cyanosis, no swelling INTEGUMENT: no generalized pallor NEUROLOGICAL: cranial nerve function from 2-12 intact intact, follows commands, speech not dysarthric Assessment and plan Patient is a 60 year old female with super morbid obesity, CHELA, Protein C deficiency, and diastolic heart failure who is here with dyspnea. She was found to have acute hypoxic hypercapnic respiratory failure and transferred to the ICU for BIPAP management, acute hypercarbic respiratory failure subsequently resolved. Acute hypercapnic respiratory failure/ Resolved. Most likely secondary to noncompliance Most likely secondary to acute CHF superimposed with obesity hyperventilation syndrome Continue BiPAP Acute decompensated HFpEF Echocardiogram 03/18/21 demonstrates EF 60 to 65% I will restart diuresis today. Patient received 2 units of blood today due to acute blood loss anemia acute blood loss anemia Hemoglobin today 7.5 Most likely secondary to vaginal bleeding CORRECTIVE THERAPIST team on board. Recommended to start patient on 10mg provera PO BID to stabilize and potentially stop the uterine bleeding. Patient has a follow up appointment with me at [facility] scheduled 02 May at 1000 I will transfuse 2 units of blood History of PE/protein C deficiency It's a difficult situation with ongoing vaginal bleed and history of PE and protein C deficiency. I will continue anticoagulation with Xarelto Continue to monitor hemoglobin level Follow-up with drafter mechanical in outpatient settings Vaginal bleeding See above Multiple thyroid nodules TSH within normal limit. Ultrasound showed moderately suspicious 1.2 cm nodule on the right , and a 1.5 cm moderately suspicious cluster of calcifications on the left, Larger nodules measuring 1.7 cm in the isthmus and 2.3 cm in the left lobe Patient will need FNA in the outpatient settings CHELA/OHS Follow-up with cnc maintenance technician in the outpatient settings Morbidly obesity BMI 66.5 Complicated care, patient will benefit from bariatric surgery consult Metabolic alkalosis Resolved VS,Fishbone, I+O VS, Fishbone, I+O Laboratory Tests 03/29/21 05:30 Vital Signs Date Time Temp Pulse Resp B/P (MAP) Pulse Ox O2 Delivery O2 Flow Rate FiO2 03/29/21 16:57 99.1 110 16 112/59 (76) 96 Nasal Cannula 3.0 03/29/21 03:42 50 I&O- Last 24 Hours up to 6 AM 03/29/21 06:00 Intake Total 1020 ml Output Total 1500 ml Balance -480 ml ADAMARIS DIAMOND DO Mar 29, 2021 17:47
[2021-03-29] MEDS: traZODone 50 MG TAB PO SCH (21:22)
[2021-03-29] MEDS: medroxyPROGESTERone 5MG TABLET PO SCH (21:22)
[2021-03-29] MEDS: busPIRone 5 MG TAB PO PRN (21:24)
[2021-03-30] VITALS (14 sets, daily range): BP systolic 124–157; BP diastolic 60–82
[2021-03-30] MEDS: ACETAMINOPHEN 650MG ER TAB (TYLENOL ARTHRITIS) PO SCH ×3 (05:45→21:46)
[2021-03-30] MEDS: SLF 3 ML SYR IV SCH ×3 (05:45→21:48)
[2021-03-30 06:35] LABS: BASO % 0.4 % (0.0-1.0); EOS # 0.4 10^3/uL (0.0-0.5); EOS % 4.3 % (0.0-3.0); HEMATOCRIT 30.3 % (36.0-47.0); HEMOGLOBIN 8.1 g/dl (12.0-15.5); LYMPH # 1.3 10^3/uL (1.5-5.0); LYMPH % 13.3 % (24.0-44.0); MEAN CORPUSCULAR HEMOGLOBIN 23.4 pg (27.0-33.0); MEAN CORPUSCULAR HGB CONC 26.7 g/dl (32.0-36.5); MEAN CORPUSCULAR VOLUME 87.6 fl (80.0-96.0); MONO # 0.7 10^3/uL (0.0-0.8); MONO % 6.9 % (2.0-8.0); NEUTROPHILS # 7.1 10^3/uL (1.5-8.5); NEUTROPHILS % 73.9 % (36.0-66.0); PLATELET COUNT, AUTOMATED 295 10^3/uL (150-450); RED BLOOD COUNT 3.46 10^6/uL (4.00-5.40); WHITE BLOOD COUNT 9.6 10^3/uL (4.0-10.0)
[2021-03-30 06:59] LABS: ALBUMIN 2.8 GM/DL (3.2-5.2); ALT/SGPT 21 U/L (12-78); BILIRUBIN,TOTAL 0.9 MG/DL (0.2-1.0); BLOOD UREA NITROGEN 22 MG/DL (7-18); CALCIUM LEVEL 7.6 MG/DL (8.8-10.2); CARBON DIOXIDE LEVEL 37 MEQ/L (21-32); CHLORIDE LEVEL 104 MEQ/L (98-107); GLOMERULAR FILTRATION RATE > 60.0 (>45); GLUCOSE, FASTING 105 MG/DL (70-100); MAGNESIUM LEVEL 2.6 MG/DL (1.8-2.4); POTASSIUM SERUM 4.3 MEQ/L (3.5-5.1); SODIUM LEVEL 139 MEQ/L (136-145)
[2021-03-30] MEDS: ADVAIR HFA 115/21MCG INHALER INH SCH ×2 (08:00→19:29)
[2021-03-30] MEDS: POTASSIUM CHLORIDE 10 MEQ SR TABLET PO SCH ×2 (10:31→21:47)
[2021-03-30] MEDS: HumaLOG INSULIN (NovoLOG) PER UNIT SC SCH ×4 (10:31→20:44)
[2021-03-30] MEDS: SENOKOT S TAB PO SCH ×2 (10:31→21:00)
[2021-03-30] MEDS: CETIRIZINE (ZyrTEC) 10 MG TAB PO SCH (10:32)
[2021-03-30] MEDS: medroxyPROGESTERone 5MG TABLET PO SCH ×2 (10:34→21:46)
[2021-03-30] MEDS: SODIUM CHLORIDE NASAL 0.65% SPRAY BTL (OCEAN) SCH ×3 (10:35→21:46)
[2021-03-30] MEDS: NYSTATIN 100,000 UNITS/GM TOPICAL PWD 15 GM TOP SCH ×2 (10:36→21:46)
--- NOTE | 2021-03-30 13:00 | IPNPDOC ---
Text Note Date of Service The patient was seen on 03/30/21. NOTE Subjective: Patient stated that she had continuous vaginal bleeding overnight. Patient denied any fever, chills, chest pain or palpitations. Objective: GENERAL APPEARANCE: Obese female HEENT: no scleral icterus, no JVD, EOMI CARDIOVASCULAR: S1S2, tachycardic at rate 105 LUNGS: Diminished lung sounds bilaterally ABDOMEN: soft & not tender w palpitation MUSCULOSKELETAL: no cyanosis, no swelling INTEGUMENT: no generalized pallor NEUROLOGICAL: cranial nerve function from 2-12 intact intact, follows commands, speech not dysarthric Assessment and plan Patient is a 60 year old female with super morbid obesity, CHELA, Protein C deficiency, and diastolic heart failure who is here with dyspnea. She was found to have acute hypoxic hypercapnic respiratory failure and transferred to the ICU for BIPAP management, acute hypercarbic respiratory failure subsequently resolved. Acute hypercapnic respiratory failure/ Resolved. Most likely secondary to noncompliance Most likely secondary to acute CHF superimposed with obesity hyperventilation syndrome Continue BiPAP daily at bedtime Acute decompensated HFpEF Echocardiogram 03/18/21 demonstrates EF 60 to 65% Continue Lasix. Patient received 2 units of blood yesterday due to acute blood loss anemia acute blood loss anemia Hemoglobin today 8.1. On 03/29/21 patient received 2 units of blood, inadequate compensation. I will transfuse 2 additional units Most likely secondary to vaginal bleeding SENIOR SOFTWARE DEVELOPMENT ENGINEER team on board. Recommended to start patient on 10mg provera PO BID to stabilize and potentially stop the uterine bleeding. Patient has a follow up appointment with me at [facility] scheduled 02 May at 1000 History of PE/protein C deficiency It's a difficult situation with ongoing vaginal bleed and history of PE and protein C deficiency. I talked to Dr. Pan , she recommended to stop xarelto for a few days Continue to monitor hemoglobin level Appreciate/agree with mental retardation aide consult Vaginal bleeding See above Multiple thyroid nodules TSH within normal limit. Ultrasound showed moderately suspicious 1.2 cm nodule on the right , and a 1.5 cm moderately suspicious cluster of calcifications on the left, Larger nodules measuring 1.7 cm in the isthmus and 2.3 cm in the left lobe Patient will need FNA in the outpatient settings CHELA/OHS Follow-up with reinforcing steel machine operator in the outpatient settings Morbidly obesity BMI 66.5 Complicated care, patient will benefit from bariatric surgery consult Metabolic alkalosis Resolved VS,Fishbone, I+O VS, Fishbone, I+O Laboratory Tests 03/30/21 05:07 Vital Signs Date Time Temp Pulse Resp B/P (MAP) Pulse Ox O2 Delivery O2 Flow Rate FiO2 03/30/21 06:00 97.0 109 20 135/60 (85) 93 Nasal Cannula 3.0 03/30/21 03:05 50 I&O- Last 24 Hours up to 6 AM 03/30/21 06:00 Intake Total 2350 ml Output Total 600 ml Balance 1750 ml ADAMARIS DIAMOND DO Mar 30, 2021 13:00
[2021-03-30] MEDS: FUROSEMIDE 40MG/4ML VIAL (J1940) IV SCH (13:54)
[2021-03-30] MEDS: MONTELUKAST 10 MG TAB PO SCH (17:12)
[2021-03-30] MEDS: VENLAFAXINE **XR** 37.5 MG CAPSULE PO SCH (17:12)
[2021-03-30] MEDS: traZODone 50 MG TAB PO SCH (21:47)
[2021-03-30] MEDS: busPIRone 5 MG TAB PO PRN (21:48)
[2021-03-31] MEDS: ACETAMINOPHEN 650MG ER TAB (TYLENOL ARTHRITIS) PO SCH ×3 (05:31→20:10)
[2021-03-31] MEDS: SLF 3 ML SYR IV SCH ×3 (05:32→22:12)
[2021-03-31 06:00] VITALS: BP 146/84
[2021-03-31 07:11] LABS: BASO # 0.1 10^3/uL (0.0-0.2); BASO % 0.6 % (0.0-1.0); EOS # 0.3 10^3/uL (0.0-0.5); EOS % 3.3 % (0.0-3.0); HEMATOCRIT 32.7 % (36.0-47.0); HEMOGLOBIN 8.8 g/dl (12.0-15.5); LYMPH # 1.1 10^3/uL (1.5-5.0); LYMPH % 11.3 % (24.0-44.0); MEAN CORPUSCULAR HGB CONC 26.9 g/dl (32.0-36.5); MEAN CORPUSCULAR VOLUME 89.1 fl (80.0-96.0); MONO # 0.6 10^3/uL (0.0-0.8); NEUTROPHILS # 7.8 10^3/uL (1.5-8.5); NEUTROPHILS % 77.7 % (36.0-66.0); PLATELET COUNT, AUTOMATED 307 10^3/uL (150-450); RED BLOOD COUNT 3.67 10^6/uL (4.00-5.40)
[2021-03-31 07:37] LABS: ALT/SGPT 22 U/L (12-78); BILIRUBIN,TOTAL 0.7 MG/DL (0.2-1.0); BLOOD UREA NITROGEN 25 MG/DL (7-18); CALCIUM LEVEL 7.4 MG/DL (8.8-10.2); CARBON DIOXIDE LEVEL 31 MEQ/L (21-32); CHLORIDE LEVEL 106 MEQ/L (98-107); CREATININE FOR GFR 0.62 MG/DL (0.55-1.30); GLOMERULAR FILTRATION RATE > 60.0 (>45); GLUCOSE, FASTING 108 MG/DL (70-100); MAGNESIUM LEVEL 2.3 MG/DL (1.8-2.4); POTASSIUM SERUM 4.6 MEQ/L (3.5-5.1); SODIUM LEVEL 142 MEQ/L (136-145)
[2021-03-31] MEDS: ADVAIR HFA 115/21MCG INHALER INH SCH ×2 (07:38→19:37)
[2021-03-31] MEDS: POTASSIUM CHLORIDE 10 MEQ SR TABLET PO SCH ×2 (08:42→20:09)
[2021-03-31] MEDS: CETIRIZINE (ZyrTEC) 10 MG TAB PO SCH (08:43)
[2021-03-31] MEDS: SENOKOT S TAB PO SCH ×2 (08:43→20:09)
[2021-03-31] MEDS: medroxyPROGESTERone 5MG TABLET PO SCH ×2 (08:43→20:09)
[2021-03-31] MEDS: NYSTATIN 100,000 UNITS/GM TOPICAL PWD 15 GM TOP SCH ×2 (08:44→20:13)
[2021-03-31] MEDS: FUROSEMIDE 40MG/4ML VIAL (J1940) IV SCH (08:44)
[2021-03-31] MEDS: HumaLOG INSULIN (NovoLOG) PER UNIT SC SCH ×4 (08:44→20:13)
[2021-03-31] MEDS: SODIUM CHLORIDE NASAL 0.65% SPRAY BTL (OCEAN) SCH ×3 (08:44→20:12)
[2021-03-31 10:45] LABS: NT-PRO BNP 600 PG/ML (<125)
[2021-03-31 14:00] VITALS: BP 142/71; O2SAT 92
--- NOTE | 2021-03-31 14:32 | IPNPDOC ---
Text Note Date of Service The patient was seen on 03/31/21. NOTE Subjective: Patient stated that her vaginal bleeding markedly improved. Patient reported legs cramps Patient denied any fever, chills, chest pain or palpitations. Objective: GENERAL APPEARANCE: Obese female HEENT: no scleral icterus, no JVD, EOMI CARDIOVASCULAR: S1S2, tachycardic at rate 105 LUNGS: Diminished lung sounds bilaterally ABDOMEN: soft & not tender w palpitation MUSCULOSKELETAL: no cyanosis, no swelling INTEGUMENT: no generalized pallor NEUROLOGICAL: cranial nerve function from 2-12 intact intact, follows commands, speech not dysarthric Assessment and plan Patient is a 60 year old female with super morbid obesity, CHELA, Protein C deficiency, and diastolic heart failure who is here with dyspnea. She was found to have acute hypoxic hypercapnic respiratory failure and transferred to the ICU for BIPAP management, acute hypercarbic respiratory failure subsequently resolved. Acute hypercapnic respiratory failure/ Resolved. Most likely secondary to noncompliance Most likely secondary to acute CHF superimposed with obesity hyperventilation syndrome Continue BiPAP daily at bedtime Acute decompensated HFpEF Echocardiogram 03/18/21 demonstrates EF 60 to 65% Continue Lasix. Patient received additional 2 units of blood yesterday due to acute blood loss anemia. Hemoglobin stable acute blood loss anemia Hemoglobin today 8.1. On 03/29/21 patient received 2 units of blood, inadequate compensation. I will transfuse 2 additional units Most likely secondary to vaginal bleeding JUICE SCALEMAN team on board. Recommended to start patient on 10mg provera PO BID to st abilize and potentially stop the uterine bleeding. Patient has a follow up appointment with me at [facility] scheduled 02 May at 1000 History of PE/protein C deficiency It's a difficult situation with ongoing vaginal bleed and history of PE and protein C deficiency. I talked to Dr. Pan , she recommended to stop xarelto for a few days Continue to monitor hemoglobin level Appreciate/agree with construction cost estimator consult Vaginal bleeding See above Multiple thyroid nodules TSH within normal limit. Ultrasound showed moderately suspicious 1.2 cm nodule on the right , and a 1.5 cm moderately suspicious cluster of calcifications on the left, Larger nodules measuring 1.7 cm in the isthmus and 2.3 cm in the left lobe Patient will need FNA in the outpatient settings CHELA/OHS Follow-up with hardware technician in the outpatient settings Morbidly obesity BMI 66.5 Complicated care, patient will benefit from bariatric surgery consult Metabolic alkalosis Resolved Legs cramps Most likely secondary to anemia Compression stocks VS,Fishbone, I+O VS, Fishbone, I+O Laboratory Tests 03/31/21 07:00 Vital Signs Date Time Temp Pulse Resp B/P (MAP) Pulse Ox O2 Delivery O2 Flow Rate FiO2 03/31/21 14:00 98.6 119 19 142/71 (94) 91 Nasal Cannula 4.0 03/30/21 03:05 50 I&O- Last 24 Hours up to 6 AM 03/31/21 06:00 Intake Total 1940 ml Output Total 700 ml Balance 1240 ml ADAMARIS DIAMOND DO Mar 31, 2021 14:32
--- NOTE | 2021-03-31 17:41 | CR.PDOC ---
General Date of Consultation: Mar 31, 2021 Referring Provider: ADAMARIS DIAMOND DO Attending Physician: ADAMARIS DIAMOND DO Consultation REASON FOR CONSULTATION/CHIEF COMPLAINT: Anticoagulation for a patient with protein C deficiency, history of DVT and vaginal bleeding. HISTORY OF PRESENT ILLNESS: 60-year-old currently admitted for CHF. History of pulmonary embolism in 2011 when the patient was hospitalized for CHF. Also found to have protein C deficiency at that time with no family history of thromboembolic disease. Patient reports vaginal bleeding for the past 2 years although she had menopause at age 55. On this admission she underwent endometrial biopsy which showed no malignancy. The patient has been started on Provera/Medroxyprogesterone acetate for vaginal bleeding with a plan for follow-up up as outpatient. Hematology consulted for question on anticoagulation in the presence anemia likely related to vaginal bleeding requiring blood transfusion. On this admission the patient has so far received 6 units of packed red cells. ALLERGIES: Please see below. HOME MEDICATIONS: Please see below. PAST MEDICAL HISTORY: 1. Super morbid obesity. 2. Obstructive sleep apnea. 3. Hypertension. 4. Diastolic heart failure with preserved systolic function, ejection fraction of 60-65%. 5. Pulmonary embolism. 6. Protein C deficiency. 7. Depression. 8. Seasonal allergies. PAST SURGICAL HISTORY: Two sections in 1982 and 1984 FAMILY HISTORY: No history of thromboembolic disease or protein C deficiency in the family. SOCIAL HISTORY: . REVIEW OF SYSTEMS: Reports shortness of breath, fatigue,. No other bleeding problems while on rivaroxaban. PHYSICAL EXAMINATION: VITAL SIGNS: Please see below. GENERAL APPEARANCE: Seated comfortably in chair not in distress. Communicative. Answered questions appropriately. HEENT: Pinkish conjunctive anicteric. Slightly dry oral mucosa. RESPIRATORY: Lungs fair air entry. No rales no rhonchi no wheeze. CARDIOVASCULAR: S1-S2 regular.. ABDOMEN: Obese, nontender EXTREMITIES: Bilateral lower extremity edema. NEUROLOGICAL: Alert, oriented to time place and person. PSYCHIATRIC: Normal mood. No anxiety. LABORATORY DATA: Please see below. ASSESSMENT/PLAN: 60-year-old with history of likely provoked PE in 2011 as patient was admitted to hospital that time. Known to have protein C deficiency with no family history of protein C deficiency or thrombo-embolic disease. Since patient has significant vaginal bleeding requiring transfusion 6 units of packed red cells so far, would hold anticoagulation until hemoglobin stabilizes. Would restart rivaroxaban anticoagulation once hemoglobin stable and vaginal bleeding minimal or nonexistent. In the meantime I recommend that patient be started on prophylactic low molecular weight heparin or other form of pharmacological DVT prophylaxis. Once patient is discharged, will arrange a follow-up appointment with me for further assessment of protein C deficiency. Thank you for referring Ms. Ela Quinonez. Vital Signs/I&O Vital Signs Date Time Temp Pulse Resp B/P (MAP) Pulse Ox O2 Delivery O2 Flow Rate FiO2 03/31/21 14:00 98.6 119 19 142/71 (94) 91 Nasal Cannula 4.0 03/30/21 03:05 50 I&O- Last 24 Hours up to 6 AM 03/31/21 06:00 Intake Total 1940 ml Output Total 700 ml Balance 1240 ml Laboratory Data Labs 24H Laboratory Tests 2 03/30/21 20:07: Bedside Glucose (Misc Panel) 115 03/31/21 07:00: Immature Granulocyte % (Auto) 1.1, Neutrophils (%) (Auto) 77.7H, Lymphocytes (%) (Auto) 11.3L, Monocytes (%) (Auto) 6.0, Eosinophils (%) (Auto) 3.3H, Basophils (%) (Auto) 0.6, Neutrophils # (Auto) 7.8, Lymphocytes # (Auto) 1.1L, Monocytes # (Auto) 0.6, Eosinophils # (Auto) 0.3, Basophils # (Auto) 0.1, Nucleated Red Blood Cells % (auto) 0.7H, Anion Gap 5L, Glomerular Filtration Rate > 60.0, Calcium Level 7.4L, Magnesium Level 2.3, Total Bilirubin 0.7, Aspartate Amino Transf (AST/SGOT) 12, Alanine Aminotransferase (ALT/SGPT) 22, Alkaline Phosphatase 45, GJ-Yaf-R-Type Natriuretic Peptide 600H, Total Protein 7.0, Albumin 3.0L, Albumin/Globulin Ratio 0.8L 03/31/21 11:24: Bedside Glucose (Misc Panel) 104 03/31/21 16:39: Bedside Glucose (Misc Panel) 126H CBC/BMP Laboratory Tests 03/31/21 07:00 Microbiology Microbiology 03/21/21 Blood Culture - Final, Complete NO GROWTH AFTER 5 DAYS 03/21/21 Blood Culture - Final, Complete NO GROWTH AFTER 5 DAYS Allergies Coded Allergies: No Known Allergies (Verified Allergy, Unknown, 03/18/21) Home Medications Scheduled Acetaminophen (Tylenol Arthritis) 650 Mg Tablet.er, 1,300 MG PO Q8H, (Reported) Cholecalciferol (Vitamin D3) (Vitamin D3) 125 Mcg Capsule, 125 MCG PO QPM, (Reported) TAKES AFTER DINNER Fluoxetine Hcl (Fluoxetine HCl) 20 Mg Capsule, 20 MG PO TAPER, (Reported) HAS ONE MORE DAY OF 40MG AFTER DINNER, THEN 5 DAYS OF 20MG, THEN SWITCHING TO EFFEXOR Lisinopril/Hydrochlorothiazide (Lisinopril-Hctz 20-25 mg Tab) 1 Each Tablet, 1 TAB PO QPM, (Reported) TAKES AFTER DINNER Metformin HCl (Metformin HCl) 500 Mg Tablet, 500 MG PO BID, (Reported) Metoprolol Tartrate (Metoprolol Tartrate) 100 Mg Tablet, 100 MG PO QPM, (Reported) TAKES AFTER DINNER Montelukast Sodium (Montelukast Sodium) 10 Mg Tablet, 10 MG PO QPM, (Reported) TAKES AFTER DINNER Rivaroxaban (Xarelto) 20 Mg Tablet, 20 MG PO QPM, (Reported) TAKES AFTER DINNER Trazodone HCl (Trazodone HCl) 50 Mg Tablet, 50 MG PO QHS, (Reported) CAN TAKE A SECOND TABLET Venlafaxine HCl (Venlafaxine HCl ER) 37.5 Mg Cap.er.24h, 37.5 MG PO QPM, (Reported) HAS NOT STARTED, WILL START AFTER WEENING OFF OF PROZAC Scheduled PRN Albuterol Sulfate (Proair Hfa) 8.5 Gm Hfa.aer.ad, 2 PUFF INH Q4H PRN for SHORTNESS OF BREATH, (Reported) Buspirone HCl (Buspirone HCl) 7.5 Mg Tablet, 7.5 MG PO BID PRN for ANXIETY, (Reported) Fluticasone Propionate (Flonase Allergy Relief) 9.9 Ml [place].susp, 1 SPRAY NA DAILY PRN for NASAL CONGESTION, (Reported) ALVIN GEORGE MD Mar 31, 2021 17:41
[2021-03-31] MEDS: VENLAFAXINE **XR** 37.5 MG CAPSULE PO SCH (18:22)
[2021-03-31] MEDS: MONTELUKAST 10 MG TAB PO SCH (18:22)
[2021-03-31 20:00] VITALS: BP 137/73
[2021-03-31] MEDS: traZODone 50 MG TAB PO SCH (20:09)
[2021-03-31] MEDS: busPIRone 5 MG TAB PO PRN (22:12)
[2021-03-31] MEDS: HEPARIN SOD (PORCINE) 5000UNITS/ML 1ML VIAL/SYRINGE SQ SCH (22:13)
[2021-04-01 04:48] VITALS: BP 118/72
[2021-04-01] MEDS: ACETAMINOPHEN 650MG ER TAB (TYLENOL ARTHRITIS) PO SCH ×3 (05:20→21:53)
[2021-04-01] MEDS: HEPARIN SOD (PORCINE) 5000UNITS/ML 1ML VIAL/SYRINGE SQ SCH ×3 (05:20→21:52)
[2021-04-01] MEDS ORDERED: METOPROLOL TART 50 MG TAB PO ONE (05:20)
[2021-04-01] MEDS: SLF 3 ML SYR IV SCH ×3 (05:21→21:53)
[2021-04-01 06:00] VITALS: BP 117/71
[2021-04-01 06:13] LABS: BASO # 0.1 10^3/uL (0.0-0.2); BASO % 0.5 % (0.0-1.0); EOS # 0.3 10^3/uL (0.0-0.5); EOS % 3.1 % (0.0-3.0); HEMATOCRIT 30.6 % (36.0-47.0); HEMOGLOBIN 8.4 g/dl (12.0-15.5); LYMPH # 1.2 10^3/uL (1.5-5.0); MEAN CORPUSCULAR HEMOGLOBIN 24.3 pg (27.0-33.0); MEAN CORPUSCULAR HGB CONC 27.5 g/dl (32.0-36.5); MEAN CORPUSCULAR VOLUME 88.7 fl (80.0-96.0); MONO # 0.7 10^3/uL (0.0-0.8); NEUTROPHILS # 7.6 10^3/uL (1.5-8.5); NEUTROPHILS % 76.2 % (36.0-66.0); PLATELET COUNT, AUTOMATED 354 10^3/uL (150-450); RED BLOOD COUNT 3.45 10^6/uL (4.00-5.40)
[2021-04-01 06:37] LABS: ALBUMIN 2.9 GM/DL (3.2-5.2); ALT/SGPT 20 U/L (12-78); BILIRUBIN,TOTAL 0.7 MG/DL (0.2-1.0); BLOOD UREA NITROGEN 26 MG/DL (7-18); CALCIUM LEVEL 7.6 MG/DL (8.8-10.2); CARBON DIOXIDE LEVEL 35 MEQ/L (21-32); CHLORIDE LEVEL 104 MEQ/L (98-107); GLOMERULAR FILTRATION RATE > 60.0 (>45); GLUCOSE, FASTING 98 MG/DL (70-100); MAGNESIUM LEVEL 2.3 MG/DL (1.8-2.4); POTASSIUM SERUM 4.9 MEQ/L (3.5-5.1); SODIUM LEVEL 142 MEQ/L (136-145); TOTAL PROTEIN 6.7 GM/DL (6.4-8.2)
[2021-04-01] MEDS: HumaLOG INSULIN (NovoLOG) PER UNIT SC SCH ×4 (07:30→20:47)
[2021-04-01] MEDS: ADVAIR HFA 115/21MCG INHALER INH SCH ×2 (07:36→20:21)
[2021-04-01] MEDS: POTASSIUM CHLORIDE 10 MEQ SR TABLET PO SCH ×2 (08:37→21:50)
[2021-04-01] MEDS: SENOKOT S TAB PO SCH ×2 (08:37→21:00)
[2021-04-01] MEDS: FUROSEMIDE 40MG/4ML VIAL (J1940) IV SCH (08:38)
[2021-04-01] MEDS: CETIRIZINE (ZyrTEC) 10 MG TAB PO SCH (08:38)
[2021-04-01] MEDS: NYSTATIN 100,000 UNITS/GM TOPICAL PWD 15 GM TOP SCH ×2 (08:39→21:52)
[2021-04-01] MEDS: SODIUM CHLORIDE NASAL 0.65% SPRAY BTL (OCEAN) SCH ×3 (08:40→21:51)
[2021-04-01] MEDS: medroxyPROGESTERone 5MG TABLET PO SCH ×2 (08:46→21:50)
--- NOTE | 2021-04-01 09:35 | ECGEPIP ---
[facility] Test Date: 2021-04-01 Pat Name: MARLENY MARIE Department: Room: [place] [address] Gender: Female Special Education Curriculum Specialist: : [id number] Requested By: JAMIE Brewster Order Number: [id number] Reading MD: Tee Barros Measurements Intervals [place] Rate: 140 P: UT: QRS: -53 QRSD: 104 T: 60 QT: 392 QTc: 598 Interpretive Statements suspected sinus tachycardia extreme left axis - left anterior hemiblock Low voltages with incomplete RIGHT BUNDLE BRANCH BLOCK and persistent S waves in V5 and V6; body habitus versus pulmonary disease faster rate otherwise unchanged from 03/18/21 Electronically Signed on 04-01-2021 9:34:59 EDT by Tee Barros
[2021-04-01 12:00] VITALS: BP 120/57
[2021-04-01 14:00] VITALS: BP 120/57
--- NOTE | 2021-04-01 15:02 | IPNPDOC ---
Text Note Date of Service The patient was seen on 04/01/21. NOTE Subjective: Patient stated that her vaginal bleeding continue improving. Over night patient developed sinus tachycardia Patient denied any fever, chills, chest pain or palpitations. Objective: GENERAL APPEARANCE: Obese female HEENT: no scleral icterus, no JVD, EOMI CARDIOVASCULAR: S1S2, tachycardic at rate 105 LUNGS: Diminished lung sounds bilaterally ABDOMEN: soft & not tender w palpitation MUSCULOSKELETAL: no cyanosis, no swelling INTEGUMENT: no generalized pallor NEUROLOGICAL: cranial nerve function from 2-12 intact intact, follows commands, speech not dysarthric Assessment and plan Patient is a 60 year old female with super morbid obesity, CHELA, Protein C deficiency, and diastolic heart failure who is here with dyspnea. She was found to have acute hypoxic hypercapnic respiratory failure and transferred to the ICU for BIPAP management, acute hypercarbic respiratory failure subsequently resolved. Acute hypercapnic respiratory failure/ Resolved. Most likely secondary to noncompliance Most likely secondary to acute CHF superimposed with obesity hyperventilation syndrome Continue BiPAP daily at bedtime Acute decompensated HFpEF Echocardiogram 03/18/21 demonstrates EF 60 to 65% Continue Lasix. BNP improved acute blood loss anemia patient received 4 units of blood Most likely secondary to vaginal bleeding GLORY HOLE TENDER team on board. Recommended to start patient on 10mg provera PO BID to stabilize and potentially stop the uterine bleeding. Patient has a follow up appointment with me at [facility] scheduled 02 May at 1000 Hemoglobin stable History of PE/protein C deficiency It's a difficult situation with ongoing vaginal bleed and history of PE and protein C deficiency. I talked to Dr. Pan , she recommended to stop xarelto for a few days Continue to monitor hemoglobin level Hematology team recommended to start prophylactic anticoagulation with heparin Vaginal bleeding See above Multiple thyroid nodules TSH within normal limit. Ultrasound showed moderately suspicious 1.2 cm nodule on the right , and a 1.5 cm moderately suspicious cluster of calcifications on the left, Larger nodules measuring 1.7 cm in the isthmus and 2.3 cm in the left lobe Patient will need FNA in the outpatient settings CHELA/OHS Follow-up with bar machine operator in the outpatient settings Morbidly obesity BMI 66.5 Complicated care, patient will benefit from bariatric surgery consult Metabolic alkalosis Resolved Legs cramps Most likely secondary to anemia Compression stocks Sinus tachycardia Heart rate under control Metoprolol restarted Deconditioning PT/OT Await acute rehabilitation unit placement VS,Fishbone, I+O VS, Fishbone, I+O Laboratory Tests 04/01/21 05:29 Vital Signs Date Time Temp Pulse Resp B/P (MAP) Pulse Ox O2 Delivery O2 Flow Rate FiO2 04/01/21 08:00 3.0 04/01/21 06:00 99.1 143 20 117/71 (86) 91 Nasal Cannula 03/30/21 03:05 50 I&O- Last 24 Hours up to 6 AM 04/01/21 06:00 Intake Total 1600 ml Output Total 150 ml Balance 1450 ml ADAMARIS DIAMOND DO Apr 01, 2021 15:02
[2021-04-01] MEDS: METOPROLOL TART 25 MG TABLET PO SCH ×2 (15:25→21:53)
[2021-04-01] MEDS: MONTELUKAST 10 MG TAB PO SCH (17:53)
[2021-04-01] MEDS: VENLAFAXINE **XR** 37.5 MG CAPSULE PO SCH (17:53)
[2021-04-01] MEDS ORDERED: METOPROLOL TARTRATE 100 MG TAB PO SCH (18:00)
[2021-04-01 20:00] VITALS: BP 130/59
[2021-04-01] MEDS: traZODone 50 MG TAB PO SCH (21:50)
[2021-04-01] MEDS: busPIRone 5 MG TAB PO PRN (21:51)
[2021-04-02] MEDS: ACETAMINOPHEN 650MG ER TAB (TYLENOL ARTHRITIS) PO SCH ×3 (05:25→21:17)
[2021-04-02] MEDS: SLF 3 ML SYR IV SCH ×3 (05:26→21:18)
[2021-04-02] MEDS: HEPARIN SOD (PORCINE) 5000UNITS/ML 1ML VIAL/SYRINGE SQ SCH ×3 (05:26→21:16)
[2021-04-02] MEDS: METOPROLOL TART 25 MG TABLET PO SCH ×3 (05:30→21:18)
[2021-04-02 06:00] VITALS: BP 118/57
[2021-04-02 06:21] LABS: ALBUMIN 2.9 GM/DL (3.2-5.2); ALT/SGPT 20 U/L (12-78); BILIRUBIN,TOTAL 0.5 MG/DL (0.2-1.0); BLOOD UREA NITROGEN 30 MG/DL (7-18); CALCIUM LEVEL 7.5 MG/DL (8.8-10.2); CARBON DIOXIDE LEVEL 31 MEQ/L (21-32); CHLORIDE LEVEL 106 MEQ/L (98-107); CREATININE FOR GFR 0.72 MG/DL (0.55-1.30); GLOMERULAR FILTRATION RATE > 60.0 (>45); GLUCOSE, FASTING 97 MG/DL (70-100); MAGNESIUM LEVEL 2.4 MG/DL (1.8-2.4); POTASSIUM SERUM 5.4 MEQ/L (3.5-5.1); SODIUM LEVEL 137 MEQ/L (136-145); TOTAL PROTEIN 6.9 GM/DL (6.4-8.2)
[2021-04-02] MEDS: ADVAIR HFA 115/21MCG INHALER INH SCH ×2 (07:15→19:57)
[2021-04-02] MEDS: HumaLOG INSULIN (NovoLOG) PER UNIT SC SCH ×4 (07:30→20:05)
[2021-04-02 08:15] LABS: BASO % 0.4 % (0.0-1.0); EOS # 0.2 10^3/uL (0.0-0.5); EOS % 2.3 % (0.0-3.0); HEMATOCRIT 32.4 % (36.0-47.0); HEMOGLOBIN 8.5 g/dl (12.0-15.5); MEAN CORPUSCULAR HEMOGLOBIN 23.7 pg (27.0-33.0); MEAN CORPUSCULAR HGB CONC 26.2 g/dl (32.0-36.5); MEAN CORPUSCULAR VOLUME 90.5 fl (80.0-96.0); MONO # 0.7 10^3/uL (0.0-0.8); MONO % 6.9 % (2.0-8.0); NEUTROPHILS # 7.9 10^3/uL (1.5-8.5); NEUTROPHILS % 79.4 % (36.0-66.0); PLATELET COUNT, AUTOMATED 400 10^3/uL (150-450); RED BLOOD COUNT 3.58 10^6/uL (4.00-5.40); WHITE BLOOD COUNT 9.9 10^3/uL (4.0-10.0)
[2021-04-02] MEDS: SENOKOT S TAB PO SCH ×2 (08:25→21:00)
[2021-04-02] MEDS: POTASSIUM CHLORIDE 10 MEQ SR TABLET PO SCH (08:25)
[2021-04-02] MEDS: CETIRIZINE (ZyrTEC) 10 MG TAB PO SCH (08:26)
[2021-04-02] MEDS: SODIUM CHLORIDE NASAL 0.65% SPRAY BTL (OCEAN) SCH ×3 (08:26→21:17)
[2021-04-02] MEDS: NYSTATIN 100,000 UNITS/GM TOPICAL PWD 15 GM TOP SCH ×2 (08:26→21:17)
[2021-04-02] MEDS: FUROSEMIDE 40MG/4ML VIAL (J1940) IV SCH (08:26)
[2021-04-02] MEDS: medroxyPROGESTERone 5MG TABLET PO SCH ×2 (08:34→21:16)
[2021-04-02 10:00] VITALS: BP 141/80
--- NOTE | 2021-04-02 11:46 | IPNPDOC ---
Text Note Date of Service The patient was seen on 04/02/21. NOTE Subjective: Patient stated that her vaginal bleeding almost stopped Patient denied any fever, chills, chest pain or palpitations. Objective: GENERAL APPEARANCE: Obese female HEENT: no scleral icterus, no JVD, EOMI CARDIOVASCULAR: S1S2 LUNGS: Diminished lung sounds bilaterally ABDOMEN: soft & not tender w palpitation MUSCULOSKELETAL: no cyanosis, no swelling INTEGUMENT: no generalized pallor NEUROLOGICAL: cranial nerve function from 2-12 intact intact, follows commands, speech not dysarthric Assessment and plan Patient is a 60 year old female with super morbid obesity, CHELA, Protein C deficiency, and diastolic heart failure who is here with dyspnea. She was found to have acute hypoxic hypercapnic respiratory failure and transferred to the ICU for BIPAP management, acute hypercarbic respiratory failure subsequently resolved. Acute hypercapnic respiratory failure/ Resolved. Most likely secondary to noncompliance Most likely secondary to acute CHF superimposed with obesity hyperventilation syndrome Continue BiPAP daily at bedtime Acute decompensated HFpEF Echocardiogram 03/18/21 demonstrates EF 60 to 65% I changed Lasix IV to torsemide 10 mg BNP improved acute blood loss anemia patient received 4 units of blood Most likely secondary to vaginal bleeding CATHETER BUILDER team on board. Recommended to start patient on 10mg provera PO BID to stabilize and potentially stop the uterine bleeding. Patient has a follow up appointment with me at [facility] scheduled 02 May at 1000 Hemoglobin stable History of PE/protein C deficiency It's a difficult situation with ongoing vaginal bleed and history of PE and protein C deficiency. I talked to Dr. Pan , she recommended to stop xarelto for a few days Continue to monitor hemoglobin level Hematology team recommended to start prophylactic anticoagulation with heparin Vaginal bleeding See above Multiple thyroid nodules TSH within normal limit. Ultrasound showed moderately suspicious 1.2 cm nodule on the right , and a 1.5 cm moderately suspicious cluster of calcifications on the left, Larger nodules measuring 1.7 cm in the isthmus and 2.3 cm in the left lobe Patient will need FNA in the outpatient settings CHELA/OHS Follow-up with iron worker apprentice in the outpatient settings Morbidly obesity BMI 66.5 Complicated care, patient will benefit from bariatric surgery consult Metabolic alkalosis Resolved Legs cramps Most likely secondary to anemia Compression stocks Sinus tachycardia Heart rate under control Metoprolol restarted Deconditioning PT/OT Await acute rehabilitation unit placement Hyperkalemia I stopped by mouth supplementation VS,Fishbone, I+O VS, Fishbone, I+O Laboratory Tests 04/02/21 05:36 04/02/21 07:36 Vital Signs Date Time Temp Pulse Resp B/P (MAP) Pulse Ox O2 Delivery O2 Flow Rate FiO2 04/02/21 10:00 99.1 93 17 141/80 (100) 89 Nasal Cannula 3.0 04/02/21 02:53 50 I&O- Last 24 Hours up to 6 AM 04/02/21 06:00 Intake Total 640 ml Output Total 200 ml Balance 440 ml ADAMARIS DIAMOND DO Apr 02, 2021 11:46
[2021-04-02] MEDS ORDERED: TORSEMIDE 10 MG TABLET PO SCH (12:00)
[2021-04-02] MEDS: VENLAFAXINE **XR** 37.5 MG CAPSULE PO SCH (17:25)
[2021-04-02] MEDS: MONTELUKAST 10 MG TAB PO SCH (17:25)
[2021-04-02] MEDS: traZODone 50 MG TAB PO SCH (21:16)
[2021-04-02] MEDS: busPIRone 5 MG TAB PO PRN (21:19)
[2021-04-02 22:00] VITALS: BP 129/60
[2021-04-03 06:00] VITALS: BP 137/64
[2021-04-03] MEDS: HEPARIN SOD (PORCINE) 5000UNITS/ML 1ML VIAL/SYRINGE SQ SCH ×3 (06:30→21:47)
[2021-04-03] MEDS: ACETAMINOPHEN 650MG ER TAB (TYLENOL ARTHRITIS) PO SCH ×3 (06:30→21:48)
[2021-04-03] MEDS: SLF 3 ML SYR IV SCH ×3 (06:30→21:49)
[2021-04-03] MEDS: METOPROLOL TART 25 MG TABLET PO SCH ×3 (06:32→21:47)
[2021-04-03 06:49] LABS: BASO % 0.4 % (0.0-1.0); EOS # 0.2 10^3/uL (0.0-0.5); EOS % 2.3 % (0.0-3.0); HEMATOCRIT 29.9 % (36.0-47.0); LYMPH # 1.1 10^3/uL (1.5-5.0); LYMPH % 11.4 % (24.0-44.0); MEAN CORPUSCULAR HEMOGLOBIN 24.2 pg (27.0-33.0); MEAN CORPUSCULAR HGB CONC 26.8 g/dl (32.0-36.5); MEAN CORPUSCULAR VOLUME 90.3 fl (80.0-96.0); MONO # 0.7 10^3/uL (0.0-0.8); MONO % 7.5 % (2.0-8.0); NEUTROPHILS # 7.4 10^3/uL (1.5-8.5); NEUTROPHILS % 77.6 % (36.0-66.0); PLATELET COUNT, AUTOMATED 395 10^3/uL (150-450); RED BLOOD COUNT 3.31 10^6/uL (4.00-5.40); WHITE BLOOD COUNT 9.6 10^3/uL (4.0-10.0)
[2021-04-03 07:12] LABS: ALT/SGPT 18 U/L (12-78); BILIRUBIN,TOTAL 0.5 MG/DL (0.2-1.0); BLOOD UREA NITROGEN 33 MG/DL (7-18); CALCIUM LEVEL 7.7 MG/DL (8.8-10.2); CARBON DIOXIDE LEVEL 32 MEQ/L (21-32); CHLORIDE LEVEL 105 MEQ/L (98-107); CREATININE FOR GFR 0.75 MG/DL (0.55-1.30); GLOMERULAR FILTRATION RATE > 60.0 (>45); GLUCOSE, FASTING 99 MG/DL (70-100); MAGNESIUM LEVEL 2.4 MG/DL (1.8-2.4); POTASSIUM SERUM 4.6 MEQ/L (3.5-5.1); SODIUM LEVEL 142 MEQ/L (136-145); TOTAL PROTEIN 6.9 GM/DL (6.4-8.2)
[2021-04-03] MEDS: HumaLOG INSULIN (NovoLOG) PER UNIT SC SCH ×4 (07:30→20:43)
[2021-04-03] MEDS: ADVAIR HFA 115/21MCG INHALER INH SCH ×2 (07:30→19:33)
[2021-04-03] MEDS: medroxyPROGESTERone 5MG TABLET PO SCH ×2 (08:27→21:46)
[2021-04-03] MEDS: TORSEMIDE 20 MG TAB PO SCH (08:27)
[2021-04-03] MEDS: SENOKOT S TAB PO SCH ×2 (08:27→21:48)
[2021-04-03] MEDS: SODIUM CHLORIDE NASAL 0.65% SPRAY BTL (OCEAN) SCH ×3 (08:28→21:48)
[2021-04-03] MEDS: NYSTATIN 100,000 UNITS/GM TOPICAL PWD 15 GM TOP SCH ×2 (08:28→21:48)
[2021-04-03] MEDS: CETIRIZINE (ZyrTEC) 10 MG TAB PO SCH (08:28)
--- NOTE | 2021-04-03 11:07 | IPNPDOC ---
Text Note Date of Service The patient was seen on 04/03/21. NOTE Subjective: No any acute events overnight. Patient reported mild vaginal bleed Patient denied any fever, chills, chest pain or palpitations. Objective: GENERAL APPEARANCE: Obese female HEENT: no scleral icterus, no JVD, EOMI CARDIOVASCULAR: S1S2 LUNGS: Diminished lung sounds bilaterally ABDOMEN: soft & not tender w palpitation MUSCULOSKELETAL: no cyanosis, no swelling INTEGUMENT: no generalized pallor NEUROLOGICAL: cranial nerve function from 2-12 intact intact, follows commands, speech not dysarthric Assessment and plan Patient is a 60 year old female with super morbid obesity, CHELA, Protein C deficiency, and diastolic heart failure who is here with dyspnea. She was found to have acute hypoxic hypercapnic respiratory failure and transferred to the ICU for BIPAP management, acute hypercarbic respiratory failure subsequently resolved. Acute hypercapnic respiratory failure/ Resolved. Most likely secondary to noncompliance Most likely secondary to acute CHF superimposed with obesity hyperventilation syndrome Continue BiPAP daily at bedtime Acute decompensated HFpEF Echocardiogram 03/18/21 demonstrates EF 60 to 65% I changed Lasix IV to torsemide 10 mg BNP improved acute blood loss anemia patient received 4 units of blood Most likely secondary to vaginal bleeding INFORMATION SYSTEMS MANAGER team on board. Recommended to start patient on 10mg provera PO BID to stabilize and potentially stop the uterine bleeding. Patient has a follow up appointment with me at [facility] scheduled 02 May at 1000 Hemoglobin dropped today to 8. I will give one more unit of blood History of PE/protein C deficiency It's a difficult situation with ongoing vaginal bleed and history of PE and protein C deficiency. I talked to Dr. Pan , she recommended to stop xarelto for a few days Continue to monitor hemoglobin level Hematology team recommended to start prophylactic anticoagulation with heparin Vaginal bleeding See above Multiple thyroid nodules TSH within normal limit. Ultrasound showed moderately suspicious 1.2 cm nodule on the right , and a 1.5 cm moderately suspicious cluster of calcifications on the left, Larger nodules measuring 1.7 cm in the isthmus and 2.3 cm in the left lobe Patient will need FNA in the outpatient settings CHELA/OHS Follow-up with maxillofacial prosthetics dentist in the outpatient settings Morbidly obesity BMI 66.5 Complicated care, patient will benefit from bariatric surgery consult Metabolic alkalosis Resolved Legs cramps Most likely secondary to anemia Compression stocks Sinus tachycardia Heart rate under control Metoprolol restarted Deconditioning PT/OT Await acute rehabilitation unit placement Hyperkalemia I stopped by mouth supplementation Resolved VS,Fishbone, I+O VS, Fishbone, I+O Laboratory Tests 04/02/21 11:52 04/03/21 06:08 Vital Signs Date Time Temp Pulse Resp B/P (MAP) Pulse Ox O2 Delivery O2 Flow Rate FiO2 04/03/21 08:00 3.0 04/03/21 06:32 88 137/64 04/03/21 06:00 97.0 19 92 Nasal Cannula 04/03/21 03:48 50 I&O- Last 24 Hours up to 6 AM 04/03/21 06:00 Intake Total 760 ml Output Total 870 ml Balance -110 ml ADAMARIS DIAMOND DO Apr 03, 2021 11:07
[2021-04-03 13:25] VITALS: BP 135/84
[2021-04-03 13:40] VITALS: BP 132/65
--- NOTE | 2021-04-03 13:56 | ECGEPIP ---
[facility] Test Date: 2021-04-02 Pat Name: MARLENY MARIE Department: Room: [place] [address] Gender: Female Combination Welder Apprentice: CHARLES : 1960 Requested By: ADAMARIS DIAMOND Order Number: [id number] Reading MD: Tee Barros Measurements Intervals [place] Rate: 96 P: 68 [place]: 160 QRS: -39 QRSD: 106 T: 0 QT: 394 QTc: 497 Interpretive Statements normal sinus rhythm LA conduction disturbance Marked left axis deviation - left anterior hemiblock Right bundle branch block Primary inferoapical ST/T wave abnormalities new from 04/01/21 Clinical correlation advised Electronically Signed on 04-03-2021 13:55:48 EDT by Tee Barros
[2021-04-03 14:34] VITALS: BP 140/67
[2021-04-03 15:56] VITALS: BP 133/78
[2021-04-03] MEDS: VENLAFAXINE **XR** 37.5 MG CAPSULE PO SCH (18:09)
[2021-04-03] MEDS: MONTELUKAST 10 MG TAB PO SCH (18:09)
[2021-04-03] MEDS: traZODone 50 MG TAB PO SCH (21:47)
[2021-04-03] MEDS: busPIRone 5 MG TAB PO PRN (21:49)
[2021-04-03 22:00] VITALS: BP 130/60
[2021-04-04] MEDS: ACETAMINOPHEN 650MG ER TAB (TYLENOL ARTHRITIS) PO SCH ×2 (05:44→12:51)
[2021-04-04] MEDS: HEPARIN SOD (PORCINE) 5000UNITS/ML 1ML VIAL/SYRINGE SQ SCH (05:44)
[2021-04-04] MEDS: SLF 3 ML SYR IV SCH ×2 (05:45→12:53)
[2021-04-04] MEDS: METOPROLOL TART 25 MG TABLET PO SCH ×2 (05:45→12:51)
[2021-04-04 05:56] LABS: BASO # 0.1 10^3/uL (0.0-0.2); BASO % 0.5 % (0.0-1.0); EOS # 0.2 10^3/uL (0.0-0.5); EOS % 2.1 % (0.0-3.0); HEMATOCRIT 31.1 % (36.0-47.0); HEMOGLOBIN 8.4 g/dl (12.0-15.5); LYMPH # 1.2 10^3/uL (1.5-5.0); LYMPH % 11.3 % (24.0-44.0); MEAN CORPUSCULAR HEMOGLOBIN 24.3 pg (27.0-33.0); MEAN CORPUSCULAR VOLUME 90.1 fl (80.0-96.0); MONO # 0.8 10^3/uL (0.0-0.8); MONO % 7.5 % (2.0-8.0); NEUTROPHILS # 8.1 10^3/uL (1.5-8.5); NEUTROPHILS % 77.6 % (36.0-66.0); PLATELET COUNT, AUTOMATED 416 10^3/uL (150-450); RED BLOOD COUNT 3.45 10^6/uL (4.00-5.40); WHITE BLOOD COUNT 10.5 10^3/uL (4.0-10.0)
[2021-04-04 06:00] VITALS: BP 132/61
[2021-04-04 06:28] LABS: ALT/SGPT 15 U/L (12-78); BILIRUBIN,TOTAL 0.7 MG/DL (0.2-1.0); BLOOD UREA NITROGEN 33 MG/DL (7-18); CALCIUM LEVEL 7.2 MG/DL (8.8-10.2); CARBON DIOXIDE LEVEL 35 MEQ/L (21-32); CHLORIDE LEVEL 103 MEQ/L (98-107); CREATININE FOR GFR 0.81 MG/DL (0.55-1.30); GLOMERULAR FILTRATION RATE > 60.0 (>45); GLUCOSE, FASTING 107 MG/DL (70-100); MAGNESIUM LEVEL 2.3 MG/DL (1.8-2.4); POTASSIUM SERUM 4.4 MEQ/L (3.5-5.1); SODIUM LEVEL 140 MEQ/L (136-145); TOTAL PROTEIN 6.7 GM/DL (6.4-8.2)
[2021-04-04] MEDS: ADVAIR HFA 115/21MCG INHALER INH SCH (07:27)
[2021-04-04] MEDS: CETIRIZINE (ZyrTEC) 10 MG TAB PO SCH (09:22)
[2021-04-04] MEDS: medroxyPROGESTERone 5MG TABLET PO SCH (09:23)
[2021-04-04] MEDS: SENOKOT S TAB PO SCH (09:23)
[2021-04-04] MEDS: TORSEMIDE 20 MG TAB PO SCH (09:23)
[2021-04-04] MEDS: HumaLOG INSULIN (NovoLOG) PER UNIT SC SCH ×2 (09:24→12:53)
[2021-04-04] MEDS: NYSTATIN 100,000 UNITS/GM TOPICAL PWD 15 GM TOP SCH (09:24)
[2021-04-04] MEDS: SODIUM CHLORIDE NASAL 0.65% SPRAY BTL (OCEAN) SCH (09:24)
[2021-04-04 10:35] VITALS: O2SAT 92
[2021-04-04] MEDS ORDERED: MEDR5TAB3 PO (10:56)
[2021-04-04] MEDS ORDERED: TORS20TA2 PO (10:56)
[2021-04-04] MEDS ORDERED: NYST10006 TOP (10:56)
[2021-04-04 12:51] VITALS: BP 125/73
--- NOTE | 2021-04-04 13:08 | DS.PDOC ---
Discharge Summary General Date of Admission Mar 18, 2021 at 07:42 Date of Discharge 04/04/21 Discharge Summary PROCEDURES PERFORMED DURING STAY: [None]. ADMITTING DIAGNOSES: Acute hypercapnic respiratory failure Acute decompensated HFpEF acute blood loss anemia History of PE/protein C deficiency Vaginal bleeding Multiple thyroid nodules CHELA/OHS Morbidly obesity Metabolic alkalosis Legs cramps Sinus tachycardia Deconditioning Hyperkalemia DISCHARGE DIAGNOSES: Acute hypercapnic respiratory failure Acute decompensated HFpEF acute blood loss anemia History of PE/protein C deficiency Vaginal bleeding Multiple thyroid nodules CHELA/OHS Morbidly obesity Metabolic alkalosis Legs cramps Sinus tachycardia Deconditioning Hyperkalemia COMPLICATIONS/CHIEF COMPLAINT: Hypoxia. HISTORY OF PRESENT ILLNESS:Patient is a 60 year old female with super morbid obesity, CHELA, Protein C deficiency, and diastolic heart failure who is here with dyspnea. She was found to have acute hypoxic hypercapnic respiratory failure and transferred to the ICU for BIPAP management, acute hypercarbic respiratory failure subsequently resolved. HOSPITAL COURSE: During the hospital stay the following issue addressed Acute hypercapnic respiratory failure/ Resolved. Most likely secondary to noncompliance Most likely secondary to acute CHF superimposed with obesity hyperventilation syndrome Continue BiPAP daily at bedtime Acute decompensated HFpEF Echocardiogram 03/18/21 demonstrates EF 60 to 65% I changed Lasix IV to torsemide 20 mg BNP improved acute blood loss anemia patient received 5 units of blood in total Most likely secondary to vaginal bleeding AIR CARGO SPECIALIST SUPERVISOR team on board. Recommended to start patient on 10mg provera PO BID to stabilize and potentially stop the uterine bleeding. Patient has a follow up appointment with me at [facility] scheduled 02 May at 1000 History of PE/protein C deficiency It's a difficult situation with ongoing vaginal bleed and history of PE and protein C deficiency. I talked to Dr. Pan , she recommended to stop xarelto for a few days Continue to monitor hemoglobin level Hematology team recommended to start prophylactic anticoagulation with heparin Vaginal bleeding See above Multiple thyroid nodules TSH within normal limit. Ultrasound showed moderately suspicious 1.2 cm nodule on the right , and a 1.5 cm moderately suspicious cluster of calcifications on the left, Larger nodules measuring 1.7 cm in the isthmus and 2.3 cm in the left lobe Patient will need FNA in the outpatient settings CHELA/OHS Follow-up with news content specialist in the outpatient settings Morbidly obesity BMI 66.5 Complicated care, patient will benefit from bariatric surgery consult Metabolic alkalosis Resolved Legs cramps Most likely secondary to anemia Compression stocks Sinus tachycardia Heart rate under control Metoprolol restarted Deconditioning PT/OT Hyperkalemia I stopped by mouth supplementation Resolved DISCHARGE MEDICATIONS: Please see below. ALLERGIES: Please see below. PHYSICAL EXAMINATION ON DISCHARGE: VITAL SIGNS: Please see below. GENERAL APPEARANCE: Obese female HEENT: no scleral icterus, no JVD, EOMI CARDIOVASCULAR: S1S2 LUNGS: Diminished lung sounds bilaterally ABDOMEN: soft & not tender w palpitation MUSCULOSKELETAL: no cyanosis, no swelling INTEGUMENT: no generalized pallor NEUROLOGICAL: cranial nerve function from 2-12 intact intact, follows commands, speech not dysarthric LABORATORY DATA: Please see below. IMAGING: PROGNOSIS: See above ACTIVITY: [As tolerated]. DIET: Cardiac DISPOSITION: ARU ITEMS TO FOLLOWUP ON ON OUTPATIENT: Follow-up with PCP, cut to length operator, thermostat machine tender for thyroid biopsy, AIR CARGO SPECIALIST SUPERVISOR DISCHARGE CONDITION: [Stable]. TIME SPENT ON DISCHARGE: 40 minutes. Vital Signs/I&Os Vital Signs Date Time Temp Pulse Resp B/P (MAP) Pulse Ox O2 Delivery O2 Flow Rate FiO2 04/04/21 12:51 92 125/73 04/04/21 10:35 92 Nasal Cannula 3.0 04/04/21 06:00 97.5 19 04/04/21 03:17 50 I&O- Last 24 Hours up to 6 AM 04/04/21 05:59 Intake Total 1270 ml Output Total 150 ml Balance 1120 ml Laboratory Data Labs 24H Laboratory Tests 2 04/03/21 16:36: Bedside Glucose (Misc Panel) 206H 04/03/21 19:44: Bedside Glucose (Misc Panel) 106 04/04/21 05:27: Immature Granulocyte % (Auto) 1.0, Neutrophils (%) (Auto) 77.6H, Lymphocytes (%) (Auto) 11.3L, Monocytes (%) (Auto) 7.5, Eosinophils (%) (Auto) 2.1, Basophils (%) (Auto) 0.5, Neutrophils # (Auto) 8.1, Lymphocytes # (Auto) 1.2L, Monocytes # (Auto) 0.8, Eosinophils # (Auto) 0.2, Basophils # (Auto) 0.1, Nucleated Red Blood Cells % (auto) 0.5H, Anion Gap 2L, Glomerular Filtration Rate > 60.0, Calcium Level 7.2L, Magnesium Level 2.3, Total Bilirubin 0.7, Aspartate Amino Transf (AST/SGOT) 12, Alanine Aminotransferase (ALT/SGPT) 15, Alkaline Phosph atase 42L, Total Protein 6.7, Albumin 3.0L, Albumin/Globulin Ratio 0.8L 04/04/21 11:56: Bedside Glucose (Misc Panel) 185H CBC/BMP Laboratory Tests 04/04/21 05:27 FSBS Laboratory Tests Test 04/03/21 16:36 04/03/21 19:44 04/04/21 11:56 Range/Units Bedside Glucose (Misc Panel) 206 106 185 80-115 MG/DL Discharge Medications Scheduled Acetaminophen (Tylenol Arthritis) 650 Mg Tablet.er, 1,300 MG PO Q8H, (Reported) Cholecalciferol (Vitamin D3) (Vitamin D3) 125 Mcg Capsule, 125 MCG PO QPM, (Reported) TAKES AFTER DINNER Fluoxetine Hcl (Fluoxetine HCl) 20 Mg Capsule, 20 MG PO TAPER, (Reported) HAS ONE MORE DAY OF 40MG AFTER DINNER, THEN 5 DAYS OF 20MG, THEN SWITCHING TO EFFEXOR Lisinopril/Hydrochlorothiazide (Lisinopril-Hctz 20-25 mg Tab) 1 Each Tablet, 1 TAB PO QPM, (Reported) TAKES AFTER DINNER Medroxyprogesterone Acetate (Medroxyprogesterone Acetate) 5 Mg Tablet, 10 MG PO BID Metformin HCl (Metformin HCl) 500 Mg Tablet, 500 MG PO BID, (Reported) Metoprolol Tartrate (Metoprolol Tartrate) 100 Mg Tablet, 100 MG PO QPM, (Reported) TAKES AFTER DINNER Montelukast Sodium (Montelukast Sodium) 10 Mg Tablet, 10 MG PO QPM, (Reported) TAKES AFTER DINNER Nystatin (Nystop) 60 Gm Powder, 0 DOSE TOP BID Rivaroxaban (Xarelto) 20 Mg Tablet, 20 MG PO QPM, (Reported) TAKES AFTER DINNER Torsemide (Torsemide) 20 Mg Tablet, 20 MG PO DAILY Trazodone HCl (Trazodone HCl) 50 Mg Tablet, 50 MG PO QHS, (Reported) CAN TAKE A SECOND TABLET Venlafaxine HCl (Venlafaxine HCl ER) 37.5 Mg Cap.er.24h, 37.5 MG PO QPM, (Reported) HAS NOT STARTED, WILL START AFTER WEENING OFF OF PROZAC Scheduled PRN Albuterol Sulfate (Proair Hfa) 8.5 Gm Hfa.aer.ad, 2 PUFF INH Q4H PRN for SHORTNESS OF BREATH, (Reported) Buspirone HCl (Buspirone HCl) 7.5 Mg Tablet, 7.5 MG PO BID PRN for ANXIETY, (Reported) Fluticasone Propionate (Flonase Allergy Relief) 9.9 Ml [place].susp, 1 SPRAY NA DAILY PRN for NASAL CONGESTION, (Reported) Allergies Coded Allergies: No Known Allergies (Verified Allergy, Unknown, 03/18/21) ADAMARIS DIAMOND DO Apr 04, 2021 13:08
[2021-04-04 14:00] VITALS: BP 127/77
[2021-04-04] MEDS ORDERED: HEPARIN SOD (PORCINE) 5000UNITS/ML 1ML VIAL/SYRINGE SQ SCH (14:00)
== END 2021-04-04 15:20 | DRG 194 ==
LOC: M ED 03:21 → M ED INP 07:42 → ENRESERV 07:49 → M PCU 10:03 → M MSPAV 03-19 14:47 → M ICU 03-21 23:11 → M MSPAV 03-25 21:04
PROVIDERS: ADMIT General Practice; ATTEND Internal Medicine
PROC: 30233N1 Transfusion of Nonautologous Red Blood Cells into Peripheral Vein, Percutaneous Approach (ICD-10-PCS; principal; 2021-03-22)
DX: I11.0 Hypertensive heart disease with heart failure (principal); J18.9 Pneumonia, unspecified organism; E87.2 Acidosis; D68.32 Hemorrhagic disorder due to extrinsic circulating anticoagulants; E87.3 Alkalosis; D62 Acute posthemorrhagic anemia; J96.02 Acute respiratory failure with hypercapnia; E66.01 Morbid (severe) obesity due to excess calories; J45.901 Unspecified asthma with (acute) exacerbation; Z68.45 Body mass index [BMI] 70 or greater, adult; E87.5 Hyperkalemia; N93.9 Abnormal uterine and vaginal bleeding, unspecified; G47.33 Obstructive sleep apnea (adult) (pediatric); E04.1 Nontoxic single thyroid nodule; Z86.711 Personal history of pulmonary embolism; Z91.19 Patient's noncompliance with other medical treatment and regimen; Z79.899 Other long term (current) drug therapy; E78.5 Hyperlipidemia, unspecified; I50.33 Acute on chronic diastolic (congestive) heart failure; D68.59 Other primary thrombophilia; J96.01 Acute respiratory failure with hypoxia

== ENCOUNTER 2021-04-04 15:30 | Inpatient (IN) | payer OTHER ==
[~2021-04-04] VITALS: Ht 167.6 cm; Wt 207.5 kg
[2021-04-04 13:30] VITALS: BP 117/62
[~2021-04-04 15:30] MED LIST: ACET650T61 PO; BUSP1TAB PO; CHOL50002 PO; FLON1SPR; FLUO20CA20 PO; LISI20TA20 PO; MEDR5TAB3 PO; METF-839 PO; METO100T5 PO; MONT10TA10 PO; NYST10006 TOP; PROAAER10 INH; TORS20TA2 PO; TRAZ-252 PO; VENL37.598 PO; XARE20TA PO
[2021-04-04] MEDS ORDERED: ACETAMINOPHEN TAB 650MG DOSE (2X325MG) PO PRN (18:10)
[2021-04-04] MEDS ORDERED: ONDANSETRON 4 MG TAB PO PRN (18:10)
[2021-04-04] MEDS ORDERED: ALBUTEROL 90 MCG/ACT 8GM HFA INHALER INH PRN (18:40)
[2021-04-04] MEDS ORDERED: GLUCOSE 4GM CHEW TABLET PO PRN (19:00)
[2021-04-04] MEDS ORDERED: SODIUM CHLORIDE NASAL 0.65% SPRAY BTL (OCEAN) PRN (19:00)
[2021-04-04] MEDS ORDERED: GLUCAGON INJ 1MG VIAL SC PRN (19:00)
[2021-04-04] MEDS ORDERED: DEXTROSE 50% 50 ML SYRINGE IV PRN (19:00)
[2021-04-04] MEDS ORDERED: PILL CUTTER 1 EACH XX PRN (19:40)
[2021-04-04 20:00] VITALS: BP 116/60
[2021-04-04] MEDS: MIRALAX *UNIT DOSE* 17GM PACKET PO SCH (21:00)
[2021-04-04] MEDS: HumaLOG INSULIN (NovoLOG) PER UNIT SC SCH (21:00)
[2021-04-04] MEDS ORDERED: RIVAROXABAN 20 MG TAB (XARELTO) PO SCH (21:00)
[2021-04-04] MEDS: ACETAMINOPHEN 650MG ER TAB (TYLENOL ARTHRITIS) PO SCH (21:51)
[2021-04-04] MEDS: VENLAFAXINE **XR** 37.5 MG CAPSULE PO SCH (21:52)
[2021-04-04] MEDS: traZODone 50 MG TAB PO SCH (21:52)
[2021-04-04] MEDS: busPIRone 5 MG TAB PO PRN (21:53)
[2021-04-04] MEDS: medroxyPROGESTERone 5MG TABLET PO SCH (21:53)
[2021-04-04] MEDS: OMEPRAZOLE 20 MG CAP PO SCH (21:57)
[2021-04-04] MEDS: MONTELUKAST 10 MG TAB PO SCH (21:57)
[2021-04-04] MEDS: NYSTATIN 100,000 UNITS/GM TOPICAL PWD 15 GM TOP SCH (21:57)
[2021-04-04] MEDS: METOPROLOL TART 25 MG TABLET PO SCH (21:57)
[2021-04-05 06:00] VITALS: BP 128/58
[2021-04-05] MEDS: ACETAMINOPHEN 650MG ER TAB (TYLENOL ARTHRITIS) PO SCH ×3 (06:02→21:57)
[2021-04-05] MEDS: METOPROLOL TART 25 MG TABLET PO SCH ×3 (06:03→21:57)
[2021-04-05 06:50] LABS: BASO # 0.1 10^3/uL (0.0-0.2); BASO % 0.5 % (0.0-1.0); EOS # 0.3 10^3/uL (0.0-0.5); EOS % 2.4 % (0.0-3.0); HEMATOCRIT 32.2 % (36.0-47.0); HEMOGLOBIN 8.6 g/dl (12.0-15.5); LYMPH % 9.7 % (24.0-44.0); MEAN CORPUSCULAR HEMOGLOBIN 24.2 pg (27.0-33.0); MEAN CORPUSCULAR HGB CONC 26.7 g/dl (32.0-36.5); MEAN CORPUSCULAR VOLUME 90.4 fl (80.0-96.0); MONO # 0.7 10^3/uL (0.0-0.8); MONO % 6.4 % (2.0-8.0); NEUTROPHILS # 8.4 10^3/uL (1.5-8.5); NEUTROPHILS % 80.1 % (36.0-66.0); PLATELET COUNT, AUTOMATED 445 10^3/uL (150-450); RED BLOOD COUNT 3.56 10^6/uL (4.00-5.40); WHITE BLOOD COUNT 10.4 10^3/uL (4.0-10.0)
[2021-04-05] MEDS: HumaLOG INSULIN (NovoLOG) PER UNIT SC SCH ×4 (07:30→19:59)
[2021-04-05] MEDS: OMEPRAZOLE 20 MG CAP PO SCH (08:14)
[2021-04-05] MEDS: MIRALAX *UNIT DOSE* 17GM PACKET PO SCH ×2 (08:14→21:00)
[2021-04-05] MEDS: medroxyPROGESTERone 5MG TABLET PO SCH ×2 (08:15→21:02)
[2021-04-05] MEDS: TORSEMIDE 20 MG TAB PO SCH (08:15)
[2021-04-05] MEDS: busPIRone 5 MG TAB PO PRN ×2 (08:15→21:01)
[2021-04-05] MEDS: NYSTATIN 100,000 UNITS/GM TOPICAL PWD 15 GM TOP SCH ×2 (08:18→21:03)
--- NOTE | 2021-04-05 13:55 | IPNPDOC ---
Text Note Date of Service The patient was seen on 04/05/21. NOTE Subjective: Patient is a 6-year-old female with a PMHx of Super morbid obesity, Diastolic CHF, CHELA, Likely obesity hypoventilation syndrome, Protein C de ficiency , who had presented to the emergency room with shortness of breath. Patient was found to have hypoxic and hypercapnic respiratory failure and was admitted to the ICU for BiPAP management. Patient remained inpatient from 03/18 to 04/04. Patient was ultimately transitioned to acute rehabilitation unit for continued physical therapy and occupational therapy. Hospitalist service was consulted for assistance. Patient was seen and examined at the bedside. Patient was seen sitting up in chair, appears to be comfortable, not in any acute distress. Denies any chest pain, shortness breath, palpitations, nausea, vomiting, abdominal pain or diarrhea. Patient reports that she has reported physical therapy today and has progressed. She noted that today was the first is that she was able to get out of bed and ambulate to the bathroom. Objective: Vitals (See below) General: Sitting up in chiar, no acute distress, comfortable, AAOx3 HEENT: NC, AT CVS: +S1S2 Lungs: Fair air entry b/l, -w/r/r Abdomen: Soft, nondistended, morbidly obese, nontender Extremities: 1-2+ Pitting edema bilaterally, - Calf tenderness Assessment and plan: s/p Acute hypercapnic respiratory failure on Chronic hypoxic respiratory failure - Likely multifactorial 2/2 Acute CHF exacerbation, superimposed with OHS and CHELA - Patient has been on a CPAP as an outpatient; this has been transitioned to a BIPAP - Currently patient reports her breathing is doing well - c/w BIPAP at night and NC oxygen during the day Acute decompensated HFpEF - Echocardiogram 03/18/21 demonstrates EF 60 to 65% - Monitor strict ins/outs, daily weights, fluid restriction - c/w Torsemide CHELA/OHS - Will have outpatient follow-up with pulmonology Acute blood loss anemia - possibly 2/2 vaginal bleeding - s/p 5 units PRBC since last admission - FERTILIZING MACHINE OPERATOR was consulted; recommended Medroxyprogesterone BID to stabilize uterine bleeding - Will have outpatient follow up with FERTILIZING MACHINE OPERATOR (05/02/2021) Vaginal bleeding - See above History of PE / Protein C deficiency - Xarelto has been stopped temporarily after discussion with Dr. Pan (Oncology) - Currently on Heparin SQ - Will likely need to have Xarelto resumed within 48-72 hours Multiple thyroid nodules - TSH within normal limits - US showed moderately suspicious 1.2cm nodule on the R, 1.5 cm moderately suspicious cluster of calcification on the L, Larger nodules measuring 1.7 cm in the isthmus and 2.3 cm in the left lobe - Patient will need US guided biopsy for further evaluation of these lesions; can be pursued as an outpatient HTN - BP well controlled - c/w Metoprolol Morbidly obesity - BMI of 66.5 - Complicating patient care Depression - c/w Venlafaxine, Buspirone Deconditioning - c/w PT/OT as per ARU GERD - c/w Protonix DVT prophylaxis - c/w Heparin Disposition: - As per ARU VS,Jaqui, I+O VS, Jaqui, I+O Laboratory Tests 04/05/21 06:19 Vital Signs Date Time Temp Pulse Resp B/P (MAP) Pulse Ox O2 Delivery O2 Flow Rate FiO2 04/05/21 06:03 94 128/58 04/05/21 06:00 97.8 20 95 Nasal Cannula 3.0 I&O- Last 24 Hours up to 6 AM 04/05/21 06:00 Intake Total 540 ml Balance 540 ml SAMIRA ROLDAN MD Apr 05, 2021 13:55 LUISA HOOVER MD Apr 05, 2021 15:33
[2021-04-05 14:00] VITALS: BP 132/70
[2021-04-05] MEDS: HEPARIN SOD (PORCINE) 5000UNITS/ML 1ML VIAL/SYRINGE SQ SCH ×2 (14:36→21:57)
--- NOTE | 2021-04-05 15:29 | HPEPDOC ---
Community Development Specialist Note DATE OF ADMISSION: 04/04/2021 SOURCE OF ADMISSION INFORMATION: Medical Records and Patient ADMITTING DIAGNOSES: Anemia. Menometrorrhagia. Super morbid obesity. Diastolic congestive heart failure. Hypertension. Obstructive sleep apnea. Status post acute hypoxemic hypercapnic respiratory failure. Atelectasis. Asthma Metabolic alkalosis. Protein C deficiency with history of PE. Thyroid nodule CHIEF COMPLAINT: . Profound fatigue. Dyspnea on exertion. Insomnia. Anxiety HISTORY OF PRESENT ILLNESS: This is a 60-year-old female with super morbid obesity, diastolic heart failure, preserved ejection fraction of 60-65%, obstructive sleep apnea, hypertension, Protein C deficiency, history of pulmonary embolism in 2009 on anticoagulants with history of depression, seasonal allergies, and status post two sections. She was in her usual state of health when she developed severe dyspnea and worsening dyspnea on exertion about 1 month ago. The patient was initially on Lasix, but was discontinued by her primary care physician since she has lost about 80 pounds over the last 2 years. She had been waking up at night with paroxysmal nocturnal dyspnea due to shortness of breath and had not slept in her bed for many months. She Was experiencing worsening weakness with difficulty ambulating. She also noted vaginal bleeding for the past few months, passing large clots and Hemoglobin was noted to have decreased from baseline of 14.9 to 9.1 at time of acute hospital admission. There was no history of GI bleed, hematemesis, bright red blood per rectum, black tarry stools, or coffee ground emesis. She denies any fever, chills, or cough, sore throat, urgency, frequency. Acute workup included Chest x-ray showed bilateral opacities congestive heart failure, diastolic dysfunction, and VETERINARY VIRUS SERUM INSPECTOR evaluation of her vaginal bleeding with symptomatic anemia led to eventual transfusion 6 Units and initiation of Provera which is seeming to help staunch the amount of bleeding. Acute hospital course was also noted for acute on chronic hypercapnic hypoxemic respiratory failure secondary to acute exacerbation of CHF requiring aggressive diuresis complicated by metabolic alkalosis improved with acetazolamide administration. This recommended that consideration for Lasix as an outpatient included in her primary care post hospital plan. She was having chronic hypercarbia, BiPAP settings needs to be adjusted 16/8 with O2 bleed of 3-4 L a minute and requires 3 L of continuous oxygen while awake. This was felt secondary to atelectasis and perhaps restrictive physiology due to the morbid obesity, is also noted that she had an episode of asthma requiring a course of Prednisone along with Advair. Patient is known to have protein C deficiency with DVT on chronic anticoagulation. There was some debate back and forth and decision was made to hold Xarelto until she achieves better controlled vaginal bleeding with Provera and continue with heparin in the interim. Other note is incidental thyroid nodule, TSH 0.772 noted, followed up with FNA is recommended. Despite the multiple complications and complexity, the patient has now achieved sufficient stabilization is recommended for admission to acute rehabilitation for comprehensive rehabilitative interventions. REVIEW OF SYSTEMS: The following is a completed review of systems and has been reviewed. Review of systems otherwise unremarkable. PAIN: Patient self reports mild to moderate intermittent lower abdominal pain. EYES: No recent vision changes. EARS, NOSE, & THROAT: No throat pain, or dysphagia, or rhinorrhea. CARDIOVASCULAR: Denies chest pain or palpitations. PULMONARY: Admits shortness of breath worse on exertion. GASTROINTESTINAL: Denies constipation/diarrhea. GENITOURINARY: Vaginal bleeding occasionally passing large clots . MUSCULOSKELETAL: Chronic low back and bilateral knee pain, worse on the left . NEUROLOGICAL:. No focal deficits HEMATOLOGICAL: . History of protein C deficiency with increased risk of clots SKIN: . No reported breakdowns PSYCHIATRIC: Anxiety with some depressive features and feelings of remorse for her current situation All other review of systems found to be negative. PAST MEDICAL HISTORY: Super morbid obesity. Obstructive sleep apnea. Hypertension. Diastolic heart failure with preserved systolic function, ejection fraction 60- 65%. Pulmonary embolism. Protein C deficiency. Depression. Seasonal allergies PAST SURGICAL HISTORY: Status post 1982, 1984 ALLERGIES: NKDA. Please see below. MEDICATIONS: Please see below. FAMILY HISTORY: Father alive at 78, bipolar depression, hypertension, mother 79. Depression, siblings with bipolar and hypertension issues . SOCIAL HISTORY: . non Smoker, no EtOH, lives in a one story accessible home usually navigates on her scooter and walker. . DIET: Regular PHYSICAL EXAMINATION: VITAL SIGNS: Please see below. Weight 204.7 kg GENERAL: Pleasant and cooperative. No acute distress. Alert and oriented times three, rotound woman seated breathless in chair with NC at 3 L. HEENT: PERRL. Extraocular movements intact. Clear conjunctiva, no adenopathy or thyromegaly. Full cervical range of motion without tenderness or spasm. Oropharynx benign, moist mucosa. CARDIOVASCULAR: Regular rate and rhythm. III/ murmurs LUNGS: Clear to auscultation bilaterally scattered basilar wheezes and decreased breath sounds No rhonchi. IC 1000cc on 3L O2 ABDOMEN: Soft, nontenderdistended. Positive bowel sounds.unable to assess organomegaly. NEUROLOGICAL: Alert and oriented times three. Cranial nerves II through XII intact. Sensation EXTREMITIES: 5 /5 ore crusher, elbow flexion, elbow extension, knee extension, foot dorsiflexion, plantar flexion. SKIN: intact, chronic venous stasis hyperpigmentation changes, no breakdowns. LABORATORY DATA: Please see below. 04/04/2021 lymph nodes. Fasting blood sugar 115, calcium 8.8, magnesium 2.3, hemoglobin 8.4, hematocrit 31.1 IMAGING:Imaging documentation personally reviewed by record. FUNCTIONAL STATUS: Premorbid: Independent with all activities of daily life as well as mobility using walker and power scooter. On Admission: -moderate to maximal assistance for lower body dressing, shower transfers, stairs. -minimal to contact guard assistance for bathing, upper body dressing, -minimal assistance bed chair and wheelchair transfers, toilet transfers, ambulation. - Set up assistance for grooming. - independent for memory and problem solving. Modified independence for social interaction, expression, comprehension, bowel and bladder. GOALS: ASSESSMENT:- Anemia. Menometrorrhagia. Super morbid obesity. Diastolic congestive heart failure. Hypertension. Obstructive sleep apnea. Status post acute hypoxemic hypercapnic respiratory failure. Atelectasis. Asthma Metabolic alkalosis. Protein C deficiency with history of PE. Thyroid nodule PLAN: 1. Rehab- PT/OT advance gait and ADls, strengthen/stretch/maintain ROM all 4 limbs. We'll continue to work on timing pain medication with therapy interventions to optimize possible capacity to participate. 2. Neuro- monitor for status changes 3. Ortho- Therapy modalities for back pain, knee pain, stabilization exercises to optimize mobility skills while minimizing further aggravation due to body habitus. 4. Cardiac- monitor for cp -HTN continue current regimen -HLD- c/u statoms 5. Resp -incentive spirometry, monitor for infection 6.ENDO-Thyroid nodule, in need of further followup 7. - VETERINARY VIRUS SERUM INSPECTOR following vaginal bleeding, should respond to provera begun as inpatient 8. GI ppx- PPI POST ADMISSION PHYSICIAN EVALUATION: Medical and functional status: Description of medical status, medical assessment: As above. Rehabilitation diagnosis and current and prior cold morbid medical conditions as above. Risk of complications and plans to mitigate them as above. Description of functional status current status is as above. Prior status as above. Status compared to preadmission: There are no clinically significant differences between the patient's current status and the information described on the preadmission screening document. Treatment plan anticipated: Treatment plan is as described above. Required disciplines including physical therapy, occupational therapy, others as noted above]. Intensity of services: 3 hours a day, 6-7 days a week. Special considerations: There are no specific special or safety considerations that would likely preclude immediate implementation of an intensive rehabilitation program or subsequently influence the plan of care. ATTESTATION: Considering all the information above, it is my best judgment that this patient requires intensive rehabilitation therapy as described above and an inpatient hospital environment due to the complexity of nursing, medical, and rehabilitation needs required by the patient. Furthermore, this patient can sarah sonably be expected to participate in an benefit from an inpatient rehabilitation stay with an interdisciplinary team approach to the delivery of rehabilitation care under the direction and supervision of rehabilitation physician. PROGNOSIS: Excellent. ESTIMATED LENGTH OF STAY:7-14 days. PROJECTED DISCHARGE DESTINATION: Home with family support and any durable medical equipment required to increase functional safety and mobility. TIME SPENT COUNSELING AND COORDINATING INITIAL CARE: Greater than 60 minutes. This document is generated using speech recognition software which may result in grammatical, typographical and individual word errors. Vital Signs Vital Sign - Last 24 Hours 04/04/21 04/04/21 04/04/21 04/05/21 19:45 20:00 21:57 06:00 Temp 97.6 97.8 Pulse 92 90 94 Resp 20 20 B/P (MAP) 116/60 (78) 129/69 128/58 (81) Pulse Ox 99 95 O2 Delivery Nasal Cannula Nasal Cannula O2 Flow Rate 3.0 3.0 3.0 04/05/21 04/05/21 04/05/21 06:03 14:00 14:35 Temp 97.8 Pulse 94 97 74 Resp 20 B/P (MAP) 128/58 132/70 (90) 137/73 Pulse Ox 97 O2 Delivery Nasal Cannula O2 Flow Rate 3.0 Laboratory Data CBC/BMP Laboratory Tests 04/05/21 06:19 Labs 24H Laboratory Tests 2 04/04/21 21:28: Bedside Glucose (Misc Panel) 142H 04/05/21 05:49: Bedside Glucose (Misc Panel) 106 04/05/21 06:19: Immature Granulocyte % (Auto) 0.9, Neutrophils (%) (Auto) 80.1H, Lymphocytes (%) (Auto) 9.7L, Monocytes (%) (Auto) 6.4, Eosinophils (%) (Auto) 2.4, Basophils (%) (Auto) 0.5, Neutrophils # (Auto) 8.4, Lymphocytes # (Auto) 1.0L, Monocytes # (Auto) 0.7, Eosinophils # (Auto) 0.3, Basophils # (Auto) 0.1, Nucleated Red Blood Cells % (auto) 0.5H 04/05/21 11:57: Bedside Glucose (Misc Panel) 100 FSBS Laboratory Tests Test 04/04/21 21:28 04/05/21 05:49 04/05/21 11:57 Range/Units Bedside Glucose (Misc Panel) 142 106 100 80-115 MG/DL Home Medications Scheduled Acetaminophen (Tylenol Arthritis) 650 Mg Tablet.er, 1,300 MG PO Q8H, (Reported) Cholecalciferol (Vitamin D3) (Vitamin D3) 125 Mcg Capsule, 125 MCG PO QPM, (Reported) TAKES AFTER DINNER Fluoxetine Hcl (Fluoxetine HCl) 20 Mg Capsule, 20 MG PO TAPER, (Reported) HAS ONE MORE DAY OF 40MG AFTER DINNER, THEN 5 DAYS OF 20MG, THEN SWITCHING TO EFFEXOR Lisinopril/Hydrochlorothiazide (Lisinopril-Hctz 20-25 mg Tab) 1 Each Tablet, 1 TAB PO QPM, (Reported) TAKES AFTER DINNER Medroxyprogesterone Acetate (Medroxyprogesterone Acetate) 5 Mg Tablet, 10 MG PO BID Metformin HCl (Metformin HCl) 500 Mg Tablet, 500 MG PO BID, (Reported) Metoprolol Tartrate (Metoprolol Tartrate) 100 Mg Tablet, 100 MG PO QPM, (Reported) TAKES AFTER DINNER Montelukast Sodium (Montelukast Sodium) 10 Mg Tablet, 10 MG PO QPM, (Reported) TAKES AFTER DINNER Nystatin (Nystop) 60 Gm Powder, 0 DOSE TOP BID Rivaroxaban (Xarelto) 20 Mg Tablet, 20 MG PO QPM, (Reported) TAKES AFTER DINNER Torsemide (Torsemide) 20 Mg Tablet, 20 MG PO DAILY Trazodone HCl (Trazodone HCl) 50 Mg Tablet, 50 MG PO QHS, (Reported) CAN TAKE A SECOND TABLET Venlafaxine HCl (Venlafaxine HCl ER) 37.5 Mg Cap.er.24h, 37.5 MG PO QPM, (Reported) HAS NOT STARTED, WILL START AFTER WEENING OFF OF PROZAC Scheduled PRN Albuterol Sulfate (Proair Hfa) 8.5 Gm Hfa.aer.ad, 2 PUFF INH Q4H PRN for SHORTNESS OF BREATH, (Reported) Buspirone HCl (Buspirone HCl) 7.5 Mg Tablet, 7.5 MG PO BID PRN for ANXIETY, (Reported) Fluticasone Propionate (Flonase Allergy Relief) 9.9 Ml Ono.susp, 1 SPRAY NA DAILY PRN for NASAL CONGESTION, (Reported) Allergies Coded Allergies: No Known Allergies (Verified Allergy, Unknown, 03/18/21) A-FIB/CHADSVASC A-FIB History Current/History of A-Fib/PAF?: No Current PO Anticoag Therapy: No Age/Risk Factor Scoring CHADSVASC: CHADSVASC Response (Comments) Value Age Risk Factor Age < 65 years old 0 Total 0 Treatment Treatment ordered: Heparin IV bridge Therapy Other reason anticoagulant not: protein C deficiency on provera for bleeding LUISA HOOVER MD Apr 05, 2021 15:29
[2021-04-05] MEDS ORDERED: METOPROLOL TARTRATE 100 MG TAB PO SCH (18:00)
[2021-04-05] MEDS: MONTELUKAST 10 MG TAB PO SCH (18:26)
[2021-04-05] MEDS: VENLAFAXINE **XR** 37.5 MG CAPSULE PO SCH (18:26)
[2021-04-05 20:00] VITALS: BP 112/70
[2021-04-05] MEDS: traZODone 50 MG TAB PO SCH (21:01)
[2021-04-06 01:20] LABS: APPEARANCE, URINE HAZY (CLEAR); BACTERIA, URINE AUTO NEGATIVE (NEGATIVE); BILIRUBIN, URINE AUTO NEGATIVE (NEGATIVE); BLOOD, URINE BLOOD 3+ (NEGATIVE); COLOR, URINE YELLOW (YELLOW); GLUCOSE, URINE (UA) AUTO NEGATIVE (NEGATIVE); KETONE, URINE AUTO NEGATIVE (NEGATIVE); LEUKOCYTE ESTERASE, URINE AUTO NEGATIVE (NEGATIVE); MUCUS, URINE SMALL (NEGATIVE); NITRITE, URINE AUTO NEGATIVE (NEGATIVE); PROTEIN, URINE AUTO 2+ mg/dL (NEGATIVE); RBC, URINE AUTO TNTC /HPF (0-3); SPECIFIC GRAVITY URINE AUTO 1.027 (1.002-1.035); SQUAMOUS EPITHELIAL CELL UR AU 1 /HPF (0-6); UROBILINOGEN, URINE AUTO 0.2 mg/dL (0.0-2.0); WBC, URINE AUTO 9 /HPF (0-3)
[2021-04-06] MEDS: HEPARIN SOD (PORCINE) 5000UNITS/ML 1ML VIAL/SYRINGE SQ SCH ×3 (05:27→21:18)
[2021-04-06] MEDS: ACETAMINOPHEN 650MG ER TAB (TYLENOL ARTHRITIS) PO SCH ×3 (05:27→21:19)
[2021-04-06] MEDS: METOPROLOL TART 25 MG TABLET PO SCH ×3 (05:28→21:20)
[2021-04-06 06:00] VITALS: BP 114/61
[2021-04-06 06:53] LABS: BASO # 0.1 10^3/uL (0.0-0.2); BASO % 0.4 % (0.0-1.0); EOS # 0.2 10^3/uL (0.0-0.5); EOS % 1.7 % (0.0-3.0); HEMATOCRIT 31.5 % (36.0-47.0); HEMOGLOBIN 8.3 g/dl (12.0-15.5); LYMPH % 8.3 % (24.0-44.0); MEAN CORPUSCULAR HEMOGLOBIN 23.7 pg (27.0-33.0); MEAN CORPUSCULAR HGB CONC 26.3 g/dl (32.0-36.5); MONO # 0.8 10^3/uL (0.0-0.8); NEUTROPHILS # 9.8 10^3/uL (1.5-8.5); NEUTROPHILS % 81.8 % (36.0-66.0); PLATELET COUNT, AUTOMATED 416 10^3/uL (150-450); WHITE BLOOD COUNT 11.9 10^3/uL (4.0-10.0)
[2021-04-06] MEDS: HumaLOG INSULIN (NovoLOG) PER UNIT SC SCH ×4 (07:30→21:00)
[2021-04-06] MEDS: MIRALAX *UNIT DOSE* 17GM PACKET PO SCH ×2 (09:00→21:00)
[2021-04-06] MEDS: busPIRone 5 MG TAB PO PRN ×2 (09:08→21:18)
[2021-04-06] MEDS: OMEPRAZOLE 20 MG CAP PO SCH (09:08)
[2021-04-06] MEDS: TORSEMIDE 20 MG TAB PO SCH (09:08)
[2021-04-06] MEDS: medroxyPROGESTERone 5MG TABLET PO SCH ×2 (09:08→21:19)
[2021-04-06] MEDS: NYSTATIN 100,000 UNITS/GM TOPICAL PWD 15 GM TOP SCH ×2 (09:09→21:20)
--- NOTE | 2021-04-06 13:15 | IPNPDOC ---
PM&R Progress Note DATE OF SERVICE: Apr 06, 2021 [employer] Risk Associate Progress Note DATE OF ADMISSION: Apr 04, 2021 at 15:30 ADMITTING DIAGNOSES: Anemia. Menometrorrhagia. Super morbid obesity. Diastolic congestive heart failure. Hypertension. Obstructive sleep apnea. Status post acute hypoxemic hypercapnic respiratory failure. Atelectasis. Asthma Metabolic alkalosis. Protein C deficiency with history of PE. Thyroid nodule CHIEF COMPLAINT: . Profound fatigue. Dyspnea on exertion. Insomnia. Anxiety HISTORY This is a 60-year-old female with super morbid obesity, diastolic heart failure, preserved ejection fraction of 60-65%, obstructive sleep apnea, hypertension, Protein C deficiency, history of pulmonary embolism in 2009 on anticoagulants with history of depression, seasonal allergies, and status post two sections. She was in her usual state of health when she developed severe dyspnea and worsening dyspnea on exert ion about 1 month ago. The patient was initially on Lasix, but was discontinued by her primary care physician since she has lost about 80 pounds over the last 2 years. She had been waking up at night with paroxysmal nocturnal dyspnea due to shortness of breath and had not slept in her bed for many months. She was experiencing worsening weakness with difficulty ambulating. She also noted vaginal bleeding for the past few months, passing large clots and Hemoglobin was noted to have decreased from baseline of 14.9 to 9.1 at time of acute hospital admission. There was no history of GI bleed, hematemesis, bright red blood per rectum, black tarry stools, or coffee ground emesis. She denies any fever, chills, or cough, sore throat, urgency, frequency. 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 Acute hospital course was also noted for acute on chronic hypercapnic hypoxemic respiratory failure secondary to acute exacerbation of CHS requiring aggressive diuresis complicated by metabolic alkalosis improved with acetazolamide administration. Thus it was recommended that consideration for Lasix as an outpatient be included in her primary care post hospital plan. She was having chronic hypercarbia, BiPAP settings needed to be adjusted 16/8 with O2 bleed of 3-4 L a minute and required 3 L of continuous oxygen while awake. This was felt secondary to atelectasis and perhaps restrictive physiology due to the morbid obesity, is also noted that she had an episode of asthma requiring course of prednisone along with Advair. Patient is known to have protein C deficiency with DVT on chronic anticoagulation. There was some debate back and forth and decision was made to hold Xarelto until she achieves better control of vaginal bleeding with Provera and continue with heparin in the interim. Other note. incidental thyroid nodule, TSH 0.772 noted, followed up with FNA is recommended. Despite the multiple complications and complexity, the patient has not achieved sufficient stabilization is recommended for admission to acute rehabilitation for comprehensive rehabilitative interventions. 04.06.2021 Patient notes continued challenged with sleeping on the bariatric bed, getting short of breath chipping off anxiety and panic. We discussed strategies to prevent that by using relaxation techniques, counted breathing techniques and gu ided visualization. Preferred position of comfort is left side-lying she is encouraged to utilize that. REVIEW OF SYSTEMS: The following is a completed review of systems and has been reviewed. Review of systems otherwise unremarkable. PAIN: Patient self reports mild to moderate intermittent lower abdominal pain. EYES: No recent vision changes. EARS, NOSE, & THROAT: No throat pain, or dysphagia, or rhinorrhea. CARDIOVASCULAR: Denies chest pain or palpitations. PULMONARY: Admits shortness of breath worse on exertion. GASTROINTESTINAL: Denies constipation/diarrhea. GENITOURINARY: Vaginal bleeding occasionally passing large clots . MUSCULOSKELETAL: Chronic low back and bilateral knee pain, worse on the left . NEUROLOGICAL:. No focal deficits HEMATOLOGICAL: . History of protein C deficiency with increased risk of clots SKIN: . No reported breakdowns PSYCHIATRIC: Anxiety with some depressive features and feelings of remorse for her current situation All other review of systems found to be negative. PHYSICAL EXAMINATION: VITAL SIGNS: Please see below. Weight 200 kg down 4 kg GENERAL: Pleasant and cooperative. No acute distress. Alert and oriented times three, rotound woman seated breathless in chair with NC at 3 L. HEENT: PERRL. Extraocular movements intact. Clear conjunctiva, no adenopathy or thyromegaly. Full cervical range of motion without tenderness or spasm. Oropharynx benign, moist mucosa. CARDIOVASCULAR: Regular rate and rhythm. III/ murmurs LUNGS: Clear to auscultation bilaterally scattered basilar wheezes and decreased breath sounds No rhonchi. Struggles to get IC over 1200 ABDOMEN: Soft, nontender, distended. Positive bowel sounds.unable to assess organomegaly. NEUROLOGICAL: Alert and oriented times three. Cranial nerves II through XII grossly intact. Sensation intact. EXTREMITIES: 5 /5 retort pre cooker SKIN: intact, chronic venous stasis hyperpigmentation changes, intertriginous rashes. LABORATORY DATA: Please see below. 04/06/2021 , hemoglobin, holding and 8.3, UA noted for 2+ protein, 3+ blood, negative leukocyte esterase, fasting blood sugar 120 04/04/2021 lymph nodes. Fasting blood sugar 1:15, calcium 8.8, magnesium 2.3, hemoglobin 8.4, hematocrit 31.1, weight IMAGING:Imaging documentation personally reviewed by record. FUNCTIONAL STATUS: 04.06.2021 Pt currently on 3L O2; RA on baseline. Pt Spo2 99% at rest and 92-94% with activity on 3L; will plan to titrate with activity per MD orders. Pt currently requires SBA- CGA with functional transfers and ambulation using 4ww. Pt limited by SOB and overall deconditioning. On Admission: -moderate to maximal assistance for lower body dressing, shower transfers, stairs. -minimal to contact guard assistance for bathing, upper body dressing, -minimal assistance bed chair and wheelchair transfers, toilet transfers, ambulation. - Set up assistance for grooming. - independent for memory and problem solving. Modified independence for social interaction, expression, comprehension, bowel and bladder. ASSESSMENT:- Anemia. Menometrorrhagia. Super morbid obesity. Diastolic congestive heart failure. Hypertension. Obstructive sleep apnea. Status post acute hypoxemic hypercapnic respiratory failure. Atelectasis. Asthma Metabolic alkalosis. Protein C deficiency with history of PE. Thyroid nodule PLAN: 1. Rehab- PT/OT advance gait and ADls, strengthen/stretch/maintain ROM all 4 limbs. We'll continue to work on timing pain medication with therapy interventions to optimize possible capacity to participate. 2. Neuro- CHELA, insomnia, continue BiPAP adjustments close attention from respiratory therapy 3. Ortho- DJD bilateral knees, low back, continue with various. Therapeutic modalities 4. Cardiac- , decompensated diastolic congestive heart failure with preserved systolic function EF 60% on echo, symptomatic anemia. -HTN c/u ARB -HLD- c/u Zocor 5. Resp -history PE, S/p Acute hypercapnic respiratory failure on Chronic hypoxic respiratory failure - Likely multifactorial 2/2 Acute CHF exacerbation, superimposed with OHS and CHELA incentive spirometry, monitor for infection. Xarelto temporarily held until bleeding abates covering with subcutaneous heparin 6. Endo- hx of suspicious thyroid nodule in need of further assessment. Possibly could be impacting metabolic dysfunction. 7. - hematuria, menometrorrhagia, hopeful for cessation with medroxyprogesterone. TREND INVESTIGATOR to follow as an outpatient 8. GI ppx-history of GERD, Protonix, super morbid obesity, some decrease in weight, possibly related to ongoing diuresis and combination of activity and dietary changes. Continue dietary education and counseling. 1. Acute decompensated diastolic congestive heart failure with preserved systolic function, EF of 60% on ECHO 2013, most likely due to noncompliance and symptomatic anemia. The patient admits to dietary indiscretion and not following a fluid restriction. She has not followed salt restricted diet and usually uses frozen vegetables and chili. She will be kept on strict I&Os, daily weight, fluid restriction of 1.8 liters. Lasix 40 IV q.6 h. Repeat the echocardiogram. Cycle the cardiac markers. Avoid other nephrotoxins. Monitor the patient's creatinine. 2. Super morbid obesity, BMI of 73, with obstructive sleep apnea. Supplemental oxygen for now. The patient does not wear CPAP. To rule out metabolic syndrome, will check A1c, lipid profile, TSH. 3. History of Protein C deficiency and pulmonary embolism. The patient is on chronic oral anticoagulation which we may resume. 4. Dyslipidemia. Check lipid profile. 5. Hypertension, controlled. 6. Diet: Low fat, low cholesterol, 2 grams sodium diet. 7. Code status: Full code. 8. DVT prophylaxison oralanticoagulant PROGNOSIS: Good ESTIMATED LENGTH OF STAY:7-14 days. PROJECTED DISCHARGE DESTINATION: Home with family support and any durable medical equipment required to increase functional safety and mobility. TIME SPENT COUNSELING AND COORDINATING INITIAL CARE: Greater than 60 minutes. This document is generated using speech recognition software which may result in grammatical, typographical and individual word errors. Allergies Coded Allergies: No Known Allergies (Verified Allergy, Unknown, 03/18/21) Vital Signs Vital Signs Date Time Temp Pulse Resp B/P (MAP) Pulse Ox O2 Delivery O2 Flow Rate FiO2 04/06/21 08:00 3.0 04/06/21 06:00 97.6 97 22 114/61 (78) 91 Nasal Cannula Laboratory Data CBC/BMP Laboratory Tests 04/06/21 06:31 Labs 24H Laboratory Tests 2 04/05/21 16:47: Bedside Glucose (Misc Panel) 114 04/05/21 19:33: Bedside Glucose (Misc Panel) 122H 04/06/21 00:40: Urine Color YELLOW, Urine Appearance HAZY, Urine pH 5.0, Urine Specific Grant 1.027, Urine Protein 2+H, Urine Glucose (Auto)(UA) NEGATIVE, Urine Ketones (Auto) NEGATIVE, Urine Blood 3+H, Urine Nitrite NEGATIVE, Urine Bilirubin NEGATIVE, Urine Urobilinogen 0.2, Urine Leukocyte Esterase (Auto) NEGATIVE, Urine WBC (Auto) 9H, Urine RBC (Auto) TNTCH, Urine Hyaline Casts (Auto) 0, Urine Bacteria (Auto) NEGATIVE, Urine Squamous Epithelial Cells 1, Urine Mucus (Auto) SMALL, Urine Sperm (Auto) 04/06/21 05:36: Bedside Glucose (Misc Panel) 123H 04/06/21 06:31: Immature Granulocyte % (Auto) 0.8, Neutrophils (%) (Auto) 81.8H, Lymphocytes (%) (Auto) 8.3L, Monocytes (%) (Auto) 7.0, Eosinophils (%) (Auto) 1.7, Basophils (%) (Auto) 0.4, Neutrophils # (Auto) 9.8H, Lymphocytes # (Auto) 1.0L, Monocytes # (Auto) 0.8, Eosinophils # (Auto) 0.2, Basophils # (Auto) 0.1, Nucleated Red Blood Cells % (auto) 0.6H 04/06/21 11:23: Bedside Glucose (Misc Panel) 120H Current Medications Current Medications Current Medications Medications (Trade) Dose Ordered Sig/Hosea Route PRN Reason Start Time Stop Time Status Last Admin Dose Admin Acetaminophen (Tylenol Arthritis Er) 1,300 mg Q8H PO 04/04/21 22:00 04/06/21 05:27 Acetaminophen (Tylenol Tab) 650 mg Q4HP PRN PO MILD PAIN (PS 1-4) 04/04/21 18:10 04/04/21 19:37 DC Albuterol Sulfate (Proventil, Ventolin Hfa) 2 puff Q4HP PRN INH SHORTNESS OF BREATH 04/04/21 18:40 04/04/21 21:59 Buspirone HCl (Buspar) 7.5 mg BIDP PRN PO ANXIETY/AGITATION 04/04/21 19:00 04/06/21 09:08 Dextrose (Dextrose 50%) 25 ml ASDIRECTED PRN IV SEE LABEL COMMENTS 04/04/21 19:00 Glucagon (Glucagon) 1 mg ASDIRECTED PRN SC SEE LABEL COMMENTS 04/04/21 19:00 Glucose (Glucose) 16 GM ASDIRECTED PRN PO SEE LABEL COMMENTS 04/04/21 19:00 Heparin Sodium (Porcine) (Heparin) 5,000 units Q8H SQ 04/05/21 14:00 04/06/21 05:27 Home Med (Med Rec Complete!) ASDIRECTED XX 04/04/21 17:00 04/04/21 17:00 DC Insulin Human Lispro (HumaLOG INSULIN) See Protocol Table AC SC 04/05/21 07:30 Insulin Human Lispro (HumaLOG INSULIN) See Protocol Table QHS SC 04/04/21 21:00 Medroxyprogesterone Acetate (Provera) 10 mg BID PO 04/04/21 21:00 04/06/21 09:08 Metoprolol Tartrate (Lopressor) 25 mg Q8H PO 04/04/21 22:00 04/06/21 05:28 Metoprolol Tartrate (Lopressor) 100 mg QPM@1800 PO 04/05/21 18:00 04/04/21 20:06 DC Montelukast Sodium (Singulair) 10 mg QPM@1800 PO 04/04/21 18:00 04/05/21 18:26 Nystatin (Mycostatin Powder, Nystop) erythematous area under breas... BID TOP 04/04/21 21:00 04/06/21 09:09 Omeprazole (PriLOSEC) 40 mg DAILY PO 04/04/21 09:00 04/06/21 09:08 Ondansetron HCl (Zofran) 4 mg Q6HP PRN PO NAUSEA 04/04/21 18:10 Polyethylene Glycol (Miralax) 1 pkt BID PO 04/04/21 21:00 04/05/21 08:14 Rivaroxaban (Xarelto) 20 mg QPM PO 04/04/21 21:00 04/04/21 18:49 DC Rivaroxaban (Xarelto) 20 mg QPM@1800 PO 04/12/21 18:00 04/05/21 12:14 DC Sodium Chloride ([place] Nasal [place]) 2 spray Q2HP PRN NA NASAL DRYNESS 04/04/21 19:00 Torsemide (Demadex) 20 mg DAILY PO 04/05/21 09:00 04/06/21 09:08 Trazodone HCl (Desyrel) 50 mg QHS PO 04/04/21 21:00 04/05/21 21:01 Venlafaxine HCl (Effexor Xr) 37.5 mg QPM@1800 PO 04/04/21 18:00 04/05/21 18:26 LUISA HOOVER MD Apr 06, 2021 13:15
[2021-04-06 14:00] VITALS: BP 149/73
[2021-04-06] MEDS: FERROUS GLUCONATE 324 MG TAB PO SCH ×2 (14:31→21:18)
[2021-04-06] MEDS: ASCORBIC ACID 500 MG TAB PO SCH ×2 (14:32→21:18)
[2021-04-06] MEDS: VENLAFAXINE **XR** 37.5 MG CAPSULE PO SCH (18:26)
[2021-04-06] MEDS: MONTELUKAST 10 MG TAB PO SCH (18:26)
[2021-04-06 20:00] VITALS: BP 116/57
[2021-04-06] MEDS: traZODone 50 MG TAB PO SCH (21:18)
[2021-04-07] MEDS: ACETAMINOPHEN 650MG ER TAB (TYLENOL ARTHRITIS) PO SCH ×3 (05:49→22:06)
[2021-04-07] MEDS: METOPROLOL TART 25 MG TABLET PO SCH ×3 (05:50→22:09)
[2021-04-07] MEDS: HEPARIN SOD (PORCINE) 5000UNITS/ML 1ML VIAL/SYRINGE SQ SCH ×3 (05:50→22:08)
[2021-04-07 06:00] VITALS: BP 131/68
[2021-04-07 07:05] LABS: BASO # 0.1 10^3/uL (0.0-0.2); BASO % 0.4 % (0.0-1.0); EOS # 0.2 10^3/uL (0.0-0.5); EOS % 1.8 % (0.0-3.0); HEMATOCRIT 31.6 % (36.0-47.0); HEMOGLOBIN 8.5 g/dl (12.0-15.5); LYMPH % 8.3 % (24.0-44.0); MEAN CORPUSCULAR HEMOGLOBIN 24.1 pg (27.0-33.0); MEAN CORPUSCULAR HGB CONC 26.9 g/dl (32.0-36.5); MEAN CORPUSCULAR VOLUME 89.8 fl (80.0-96.0); MONO # 0.9 10^3/uL (0.0-0.8); MONO % 7.4 % (2.0-8.0); NEUTROPHILS # 9.3 10^3/uL (1.5-8.5); NEUTROPHILS % 81.1 % (36.0-66.0); PLATELET COUNT, AUTOMATED 401 10^3/uL (150-450); RED BLOOD COUNT 3.52 10^6/uL (4.00-5.40); WHITE BLOOD COUNT 11.5 10^3/uL (4.0-10.0)
[2021-04-07] MEDS: HumaLOG INSULIN (NovoLOG) PER UNIT SC SCH ×4 (08:21→21:00)
[2021-04-07] MEDS: MIRALAX *UNIT DOSE* 17GM PACKET PO SCH ×2 (08:21→21:00)
[2021-04-07] MEDS: OMEPRAZOLE 20 MG CAP PO SCH (08:22)
[2021-04-07] MEDS: medroxyPROGESTERone 5MG TABLET PO SCH ×2 (08:22→20:59)
[2021-04-07] MEDS: ASCORBIC ACID 500 MG TAB PO SCH ×2 (08:22→21:00)
[2021-04-07] MEDS: NYSTATIN 100,000 UNITS/GM TOPICAL PWD 15 GM TOP SCH ×2 (08:22→21:01)
[2021-04-07] MEDS: TORSEMIDE 20 MG TAB PO SCH (08:22)
[2021-04-07] MEDS: FERROUS GLUCONATE 324 MG TAB PO SCH ×2 (08:22→21:00)
--- NOTE | 2021-04-07 10:26 | IPNPDOC ---
PM&R Progress Note DATE OF SERVICE: Apr 07, 2021 Supervisor [employer] Progress Note DATE OF ADMISSION: Apr 04, 2021 at 15:30 DATE OF SERVICE: 04/07/2021 ADMITTING DIAGNOSES: Anemia. Menometrorrhagia. Super morbid obesity. Diastolic congestive heart failure. Hypertension. Obstructive sleep apnea. Status post acute hypoxemic hypercapnic respiratory failure. Atelectasis. Asthma Metabolic alkalosis. Protein C deficiency with history of PE. Thyroid nodule CHIEF COMPLAINT: . Profound fatigue. Dyspnea on exertion. Insomnia. Anxiety HISTORY This is a 60-year-old female with super morbid obesity, diastolic heart failure, preserved ejection fraction of 60-65%, obstructive sleep apnea, hypertension, Protein C deficiency, history of pulmon aston embolism in 2009 on anticoagulants with history of depression, seasonal allergies, and status post two sections. She was in her usual state of health when she developed severe dyspnea and worsening dyspnea on exertion about 1 month ago. The patient was initially on Lasix, but was discontinued by her primary care physician since she has lost about 80 pounds over the last 2 years. She had been waking up at night with paroxysmal nocturnal dyspnea due to shortness of breath and had not slept in her bed for many months. She was experiencing worsening weakness with difficulty ambulating. She also noted vaginal bleeding for the past few months, passing large clots and Hemoglobin was noted to have decreased from baseline of 14.9 to 9.1 at time of acute hospital admission. There was no history of GI bleed, hematemesis, bright red blood per rectum, black tarry stools, or coffee ground emesis. She denies any fever, chills, or cough, sore throat, urgency, frequency. Acute workup included Chest x-ray showed bilateral opacities, congestive heart failure, diastolic dysfunction, and AUDIO VISUAL SECRETARY evaluation of her vaginal bleeding with symptomatic anemia led to eventual transfusion 6 Units and initiation of Provera which is seeming to help staunch the amount of bleeding. Acute hospital course was also noted for acute on chronic hypercapnic hypoxemic respiratory failure secondary to acute exacerbation of CHS requiring aggressive diuresis complicated by metabolic alkalosis improved with acetazolamide administration. Thus it was recommended that consideration for Lasix as an outpatient be included in her primary care post hospital plan. She was having chronic hypercarbia, BiPAP settings needed to be adjusted 16/8 with O2 bleed of 3-4 L a minute and required 3 L of continuous oxygen while awake. This was felt secondary to atelectasis and perhaps restrictive physiology due to the morbid obesity, is also noted that she had an episode of asthma requiring course of prednisone along with Advair. Patient is known to have protein C deficiency with DVT on chronic anticoagulation. There was some debate back and forth and decision was made to hold Xarelto until she achieves better control of vaginal bleeding with Provera and continue with heparin in the interim. Other note. incidental thyroid nodule, TSH 0.772 noted, followed up with FNA is recommended. Despite the multiple co mplications and complexity, the patient has not achieved sufficient stabilization is recommended for admission to acute rehabilitation for comprehensive rehabilitative interventions. 04.06.2021 Patient notes continued challenged with sleeping on the bariatric bed, getting short of breath chipping off anxiety and panic. We discussed strategies to prevent that by using relaxation techniques, counted breathing techniques and guided visualization. Preferred position of comfort is left side-lying she is encouraged to utilize that. 04.07.2021 Still with some sleep challenges, a bit better, struggling with different BIPAP mask than prior CPAP mask. Discussed dietary options, meal planning, finding w ays to avoid ordering double carbs with meals, increasing vegetables, healthy low glycemic, low sodium snack ideas. Open to discussion further with public transit bus driver, says she wants to know how to do better. Reviewed portion sizing. REVIEW OF SYSTEMS: The following is a completed review of systems and has been reviewed. Review of systems otherwise unremarkable. PAIN: Patient self reports mild to moderate intermittent lower abdominal pain. EYES: No recent vision changes. EARS, NOSE, & THROAT: No throat pain, or dysphagia, or rhinorrhea. CARDIOVASCULAR: Denies chest pain or palpitations. PULMONARY: Admits shortness of breath worse on exertion. GASTROINTESTINAL: Denies constipation/diarrhea. GENITOURINARY: Vaginal bleeding occasionally passing large clots . MUSCULOSKELETAL: Chronic low back and bilateral knee pain, worse on the left . NEUROLOGICAL:. No focal deficits HEMATOLOGICAL: . History of protein C deficiency with increased risk of clots SKIN: . No reported breakdowns PSYCHIATRIC: Anxiety with some depressive features and feelings of remorse for her current situation All other review of systems found to be negative. PHYSICAL EXAMINATION: VITAL SIGNS: Please see below. Weight 200 kg down 4 kg earlier this week, back up to 207 GENERAL: Pleasant and cooperative. No acute distress. Alert and oriented times three, rotound woman seated breathless in chair with NC at 3 L. HEENT: PERRL. Extraocular movements intact. Clear conjunctiva, no adenopathy or thyromegaly. Full cervical range of motion without tenderness or spasm. Oropharynx benign, moist mucosa. CARDIOVASCULAR: Regular rate and rhythm. III/ murmurs LUNGS: increased bilaterally scattered basilar wheezes both yeager and decreased breath sounds No rhonchi. Struggles to get IC over 1000 ABDOMEN: Soft, nontender, distended. Positive bowel sounds.unable to assess organomegaly. NEUROLOGICAL: Alert and oriented times three. Cranial nerves II through XII grossly intact. Sensation intact. EXTREMITIES: 5 /5 integration manager SKIN: intact, chronic venous stasis hyperpigmentation changes, intertriginous rashes. LABORATORY DATA: Please see below. 04/06/2021 , hemoglobin, holding and 8.3, UA noted for 2+ protein, 3+ blood, negative leukocyte esterase, fasting blood sugar 120 04/04/2021 lymph nodes. Fasting blood sugar 1:15, calcium 8.8, magnesium 2.3, hemoglobin 8.4, hematocrit 31.1, weight IMAGING:Imaging documentation personally reviewed by record. FUNCTIONAL STATUS: 7. Reviewed diaphragmatic breathing and relaxation strategies due to pt high level of anxiety and fear of SOB contributing to lack of sleep. Pt provided with written handouts regarding relaxation strategies that therapy will continue to educate on in order to improve pt quality of life. Continues work on safety in mobility, building endurance and strength. 04.06.2021 Pt currently on 3L O2; RA on baseline. Pt Spo2 99% at rest and 92-94% with activity on 3L; will plan to titrate with activity per MD orders. Pt currently requires SBA- CGA with functional transfers and ambulation using 4ww. Pt limited by SOB and overall deconditioning. On Admission: -moderate to maximal assistance for lower body dressing, shower transfers, stairs. -minimal to contact guard assistance for bathing, upper body dressing, -minimal assistance bed chair and wheelchair transfers, toilet transfers, ambulation. - Set up assistance for grooming. - independent for memory and problem solving. Modified independence for social interaction, expression, comprehension, bowel and bladder. ASSESSMENT:- Anemia. Menometrorrhagia. Super morbid obesity. Diastolic congestive heart failure. Hypertension. Obstructive sleep apnea. Status post acute hypoxemic hypercapnic respiratory failure. Atelectasis. Asthma Metabolic alkalosis. Protein C deficiency with history of PE. Thyroid nodule PLAN: 1. Rehab- PT/OT advance gait and ADls, strengthen/stretch/maintain ROM all 4 limbs. We'll continue to work on timing pain medication with therapy interventions to optimize possible capacity to participate. Significant patient education involved in all aspects of rehab care. 2. Neuro- CHELA, insomnia, continue BiPAP adjustments needs aggressive close attention from respiratory therapy 3. Ortho- DJD bilateral knees, low back, continue with various. Therapeutic modalities 4. Cardiac- , decompensated diastolic congestive heart failure with preserved systolic function EF 60% on echo, symptomatic anemia. Gaining weight, more respiratory distress, balancing pulmonary toilet with cardiac demands. -HTN c/u ARB -HLD- c/u Zocor 5. Resp -history PE, S/p Acute hypercapnic respiratory failure on Chronic hypoxic respiratory failure - Likely multifactorial 2/2 Acute CHF exacerbation, superimposed with OHS and CHELA- may need different mask, continue incentive spirometry, monitor for infection. Xarelto temporarily held until bleeding abates covering with subcutaneous heparin 6. Endo- hx of suspicious thyroid nodule in need of further assessment. Possibly could be impacting metabolic dysfunction. 7. - hematuria, menometrorrhagia, hopeful for cessation with medroxyprogesterone. AUDIO VISUAL SECRETARY to follow as an outpatient 8. GI ppx-history of GERD, Protonix, super morbid obesity, some decrease in weight, possibly related to ongoing diuresis and combination of activity and dietary changes. Continue dietary education and counseling. PROGNOSIS: Good ESTIMATED LENGTH OF STAY:7-14 days. PROJECTED DISCHARGE DESTINATION: Home with family support and any durable medical equipment required to increase functional safety and mobility. TIME SPENT COUNSELING AND COORDINATING INITIAL CARE: Greater than 60 minutes. This document is generated using speech recognition software which may result in grammatical, typographical and individual word errors. TIME SPENT: Chart Review, examination and documentation [40] minutes. Allergies Coded Allergies: No Known Allergies (Verified Allergy, Unknown, 03/18/21) Vital Signs Vital Signs Date Time Temp Pulse Resp B/P (MAP) Pulse Ox O2 Delivery O2 Flow Rate FiO2 04/07/21 06:00 98.1 99 20 131/68 (89) 92 Nasal Cannula 2.0 Laboratory Data CBC/BMP Laboratory Tests 04/07/21 06:50 Labs 24H Laboratory Tests 2 04/06/21 11:23: Bedside Glucose (Misc Panel) 120H 04/06/21 16:25: Bedside Glucose (Misc Panel) 110 04/06/21 19:48: Bedside Glucose (Misc Panel) 127H 04/07/21 04:52: Bedside Glucose (Misc Panel) 134H 04/07/21 06:50: Immature Granulocyte % (Auto) 1.0, Neutrophils (%) (Auto) 81.1H, Lymphocytes (%) (Auto) 8.3L, Monocytes (%) (Auto) 7.4, Eosinophils (%) (Auto) 1.8, Basophils (%) (Auto) 0.4, Neutrophils # (Auto) 9.3H, Lymphocytes # (Auto) 1.0L, Monocytes # (Auto) 0.9H, Eosinophils # (Auto) 0.2, Basophils # (Auto) 0.1, Nucleated Red Blood Cells % (auto) 0.7H Current Medications Current Medications Current Medications Medications (Trade) Dose Ordered Sig/Hosea Route PRN Reason Start Time Stop Time Status Last Admin Dose Admin Acetaminophen (Tylenol Arthritis Er) 1,300 mg Q8H PO 04/04/21 22:00 04/07/21 05:49 Acetaminophen (Tylenol Tab) 650 mg Q4HP PRN PO MILD PAIN (PS 1-4) 04/04/21 18:10 04/04/21 19:37 DC Albuterol Sulfate (Proventil, Ventolin Hfa) 2 puff Q4HP PRN INH SHORTNESS OF BREATH 04/04/21 18:40 04/04/21 21:59 Ascorbic Acid (Vitamin C) 500 mg BID PO 04/06/21 09:00 04/07/21 08:22 Buspirone HCl (Buspar) 7.5 mg BIDP PRN PO ANXIETY/AGITATION 04/04/21 19:00 04/06/21 21:18 Dextrose (Dextrose 50%) 25 ml ASDIRECTED PRN IV SEE LABEL COMMENTS 04/04/21 19:00 Ferrous Gluconate (Fergon) 324 mg BID PO 04/06/21 09:00 04/07/21 08:22 Glucagon (Glucagon) 1 mg ASDIRECTED PRN SC SEE LABEL COMMENTS 04/04/21 19:00 Glucose (Glucose) 16 GM ASDIRECTED PRN PO SEE LABEL COMMENTS 04/04/21 19:00 Heparin Sodium (Porcine) (Heparin) 5,000 units Q8H SQ 04/05/21 14:00 04/07/21 05:50 Home Med (Med Rec Complete!) ASDIRECTED XX 04/04/21 17:00 04/04/21 17:00 DC Insulin Human Lispro (HumaLOG INSULIN) See Protocol Table AC SC 04/05/21 07:30 04/07/21 08:21 Insulin Human Lispro (HumaLOG INSULIN) See Protocol Table QHS SC 04/04/21 21:00 Medroxyprogesterone Acetate (Provera) 10 mg BID PO 04/04/21 21:00 04/07/21 08:22 Metoprolol Tartrate (Lopressor) 25 mg Q8H PO 04/04/21 22:00 04/07/21 05:50 Metoprolol Tartrate (Lopressor) 100 mg QPM@1800 PO 04/05/21 18:00 04/04/21 20:06 DC Montelukast Sodium (Singulair) 10 mg QPM@1800 PO 04/04/21 18:00 04/06/21 18:26 Nystatin (Mycostatin Powder, Nystop) erythematous area under breas... BID TOP 04/04/21 21:00 04/07/21 08:22 Omeprazole (PriLOSEC) 40 mg DAILY PO 04/04/21 09:00 04/07/21 08:22 Ondansetron HCl (Zofran) 4 mg Q6HP PRN PO NAUSEA 04/04/21 18:10 Polyethylene Glycol (Miralax) 1 pkt BID PO 04/04/21 21:00 04/07/21 08:21 Rivaroxaban (Xarelto) 20 mg QPM PO 04/04/21 21:00 04/04/21 18:49 DC Rivaroxaban (Xarelto) 20 mg QPM@1800 PO 04/12/21 18:00 04/05/21 12:14 DC Sodium Chloride (Sombrillo Nasal [place]) 2 spray Q2HP PRN NA NASAL DRYNESS 04/04/21 19:00 Torsemide (Demadex) 20 mg DAILY PO 04/05/21 09:00 04/07/21 08:22 Trazodone HCl (Desyrel) 50 mg QHS PO 04/04/21 21:00 04/06/21 21:18 Venlafaxine HCl (Effexor Xr) 37.5 mg QPM@1800 PO 04/04/21 18:00 04/06/21 18:26 LUISA HOOVER MD Apr 07, 2021 10:26
--- NOTE | 2021-04-07 13:40 | REP ---
INDICATION: SOB / Weight gain COMPARISON: 03/21/2021 TECHNIQUE: PA and lateral. FINDINGS: Mediastinum demonstrates stable cardiomegaly along with prominent pulmonary vasculature and cephalization suggesting elements of pulmonary vascular congestion. Subtle diffuse airspace disease cannot be excluded. No obvious effusion or pneumothorax. Skeletal structures are intact. IMPRESSION: Cardiomegaly and possibly chronic pulmonary vascular congestion. Cannot exclude subtle scattered airspace disease. <Electronically signed by Sha Romeo > 04/07/21 [id number]
[2021-04-07 14:00] VITALS: BP 148/65
[2021-04-07 14:53] LABS: BLOOD UREA NITROGEN 29 MG/DL (7-18); CALCIUM LEVEL 7.4 MG/DL (8.8-10.2); CARBON DIOXIDE LEVEL 35 MEQ/L (21-32); CHLORIDE LEVEL 102 MEQ/L (98-107); CREATININE FOR GFR 0.96 MG/DL (0.55-1.30); GLOMERULAR FILTRATION RATE > 60.0 (>45); GLUCOSE, FASTING 125 MG/DL (70-100); NT-PRO BNP 2696 PG/ML (<125); POTASSIUM SERUM 4.3 MEQ/L (3.5-5.1); SODIUM LEVEL 139 MEQ/L (136-145)
[2021-04-07] MEDS ORDERED: TORSEMIDE 20 MG TAB PO ONE (16:15)
--- NOTE | 2021-04-07 16:16 | IPNPDOC ---
Text Note Date of Service The patient was seen on 04/07/21. NOTE Subjective: Patient is a 6-year-old female with a PMHx of Super morbid obesity, Diastolic CHF, CHELA, Likely obesity hypoventilation syndrome, Protein C def iciency , who had presented to the emergency room with shortness of breath. Patient was found to have hypoxic and hypercapnic respiratory failure and was admitted to the ICU for BiPAP management. Patient remained inpatient from 03/18 to 04/04. Patient was ultimately transitioned to acute rehabilitation unit for continued physical therapy and occupational therapy. Hospitalist service was consulted for assistance. Patient was seen and examined at the bedside. Patient reports that she may experience worsening shortness of breath with exertion over last 3 days. Denies any chest pain, palpitations, nausea, vomiting, abdominal pain, diarrhea, or urinary discomfort. She notes that her lower tremors, appears to be the same and not improved significantly over last 3 days. Objective: Vitals (See below) General: Patient was seen sitting up in chair, appears to be comfortable without any acute distress. Nasal cannula is on 3 L. Patient is awake, alert, oriented 3 HEENT: Normocephalic and atraumatic CVS: +S1S2 Lungs: Air sounds bilaterally. No evidence of wheezing, crackles or rhonchi Abdomen: Abdomen remains soft without any appreciated tenderness or distention Extremities: Lower extremities reveal 1-2+ pitting edema bilaterally; there appears to be a slight worsening compared to 2 days ago Imaging: CXR 04/07: Cardiomegaly and possibly chronic pulmonary vascular congestion. Cannot exclude subtle scattered airspace disease. Assessment and plan: s/p Acute hypercapnic respiratory failure on Chronic hypoxic respiratory failure - Likely multifactorial 2/2 Acute CHF exacerbation, superimposed with OHS and CHELA - Patient has been on a CPAP as an outpatient; this has been transitioned to a BIPAP - Currently patient reports her breathing is doing well - c/w BIPAP at night and NC oxygen during the day Acute decompensated HFpEF - Echocardiogram 03/18/21 demonstrates EF 60 to 65% - Monitor strict ins/outs, daily weights, fluid restriction - Elevated BNP compared to prior - Imaging noted above - Will continue with strict inputs and outputs; this has been advised to the patient and nursing staff - c/w Torsemide; Will provide additional dose now - Will consider adjusting frequency of torsemide to twice a day CHELA/OHS - Will have outpatient follow-up with pulmonology Acute blood loss anemia - possibly 2/2 vaginal bleeding - s/p 5 units PRBC since last admission - ASTROCHEMIST was consulted; recommended Medroxyprogesterone BID to stabilize uterine bleeding - Will have outpatient follow up with ASTROCHEMIST (05/02/2021) Vaginal bleeding - See above History of PE / Protein C deficiency - Xarelto has been stopped temporarily after hospitalist service had a discussion with Dr. Pan (Oncology) - Currently on Heparin SQ - A consideration to start Xarelto should be made after Hg stability is ensured and there is no bleeding or after discussion with Hem/Onc Multiple thyroid nodules - TSH within normal limits - US showed moderately suspicious 1.2cm nodule on the R, 1.5 cm moderately kaushik picious cluster of calcification on the L, Larger nodules measuring 1.7 cm in the isthmus and 2.3 cm in the left lobe - Patient will need US guided biopsy for further evaluation of these lesions; can be pursued as an outpatient HTN - BP well controlled - c/w Metoprolol Morbidly obesity - BMI of 66.5 - Complicating patient care Depression / Insomnia - c/w Venlafaxine, Buspirone - c/w Trazodone Deconditioning - c/w PT/OT as per ARU GERD - c/w Protonix DVT prophylaxis - c/w Heparin Disposition: - As per ARU VS,Jaqui, I+O VS, Jaqui, I+O Laboratory Tests 04/07/21 06:50 04/07/21 13:59 Vital Signs Date Time Temp Pulse Resp B/P (MAP) Pulse Ox O2 Delivery O2 Flow Rate FiO2 04/07/21 15:03 97 148/65 04/07/21 14:00 98.2 18 95 Nasal Cannula 2.0 I&O- Last 24 Hours up to 6 AM 04/07/21 05:59 Intake Total 690 ml Output Total 1 ml Balance 689 ml SAMIRA ROLDAN MD Apr 07, 2021 16:16
[2021-04-07] MEDS: VENLAFAXINE **XR** 37.5 MG CAPSULE PO SCH (18:05)
[2021-04-07] MEDS: MONTELUKAST 10 MG TAB PO SCH (18:05)
[2021-04-07 20:00] VITALS: BP 128/64
[2021-04-07] MEDS: traZODone 50 MG TAB PO SCH (21:00)
[2021-04-07] MEDS: busPIRone 5 MG TAB PO PRN (22:06)
[2021-04-08 06:00] VITALS: BP 139/65
[2021-04-08] MEDS: HEPARIN SOD (PORCINE) 5000UNITS/ML 1ML VIAL/SYRINGE SQ SCH ×3 (06:02→21:00)
[2021-04-08] MEDS: ACETAMINOPHEN 650MG ER TAB (TYLENOL ARTHRITIS) PO SCH ×3 (06:02→21:01)
[2021-04-08] MEDS: METOPROLOL TART 25 MG TABLET PO SCH ×3 (06:03→21:00)
[2021-04-08] MEDS: HumaLOG INSULIN (NovoLOG) PER UNIT SC SCH ×4 (07:30→21:00)
[2021-04-08 07:54] LABS: BASO # 0.1 10^3/uL (0.0-0.2); BASO % 0.5 % (0.0-1.0); EOS # 0.1 10^3/uL (0.0-0.5); EOS % 1.3 % (0.0-3.0); HEMATOCRIT 32.5 % (36.0-47.0); HEMOGLOBIN 8.6 g/dl (12.0-15.5); LYMPH # 0.8 10^3/uL (1.5-5.0); LYMPH % 7.8 % (24.0-44.0); MEAN CORPUSCULAR HGB CONC 26.5 g/dl (32.0-36.5); MEAN CORPUSCULAR VOLUME 90.5 fl (80.0-96.0); MONO # 0.7 10^3/uL (0.0-0.8); MONO % 6.9 % (2.0-8.0); NEUTROPHILS # 8.9 10^3/uL (1.5-8.5); NEUTROPHILS % 82.6 % (36.0-66.0); PLATELET COUNT, AUTOMATED 414 10^3/uL (150-450); RED BLOOD COUNT 3.59 10^6/uL (4.00-5.40); WHITE BLOOD COUNT 10.7 10^3/uL (4.0-10.0)
[2021-04-08] MEDS: MIRALAX *UNIT DOSE* 17GM PACKET PO SCH ×2 (08:05→21:00)
[2021-04-08] MEDS: busPIRone 5 MG TAB PO PRN (08:06)
[2021-04-08] MEDS: FERROUS GLUCONATE 324 MG TAB PO SCH ×2 (08:06→20:53)
[2021-04-08] MEDS: TORSEMIDE 20 MG TAB PO SCH (08:06)
[2021-04-08] MEDS: OMEPRAZOLE 20 MG CAP PO SCH (08:06)
[2021-04-08] MEDS: medroxyPROGESTERone 5MG TABLET PO SCH ×2 (08:06→20:53)
[2021-04-08] MEDS: ASCORBIC ACID 500 MG TAB PO SCH ×2 (08:06→20:53)
[2021-04-08] MEDS: NYSTATIN 100,000 UNITS/GM TOPICAL PWD 15 GM TOP SCH ×2 (08:07→21:00)
[2021-04-08 08:13] LABS: ALBUMIN 3.2 GM/DL (3.2-5.2); ALT/SGPT 16 U/L (12-78); BILIRUBIN,TOTAL 0.5 MG/DL (0.2-1.0); BLOOD UREA NITROGEN 27 MG/DL (7-18); CALCIUM LEVEL 7.8 MG/DL (8.8-10.2); CARBON DIOXIDE LEVEL 37 MEQ/L (21-32); CHLORIDE LEVEL 101 MEQ/L (98-107); CREATININE FOR GFR 0.94 MG/DL (0.55-1.30); GLOMERULAR FILTRATION RATE > 60.0 (>45); GLUCOSE, FASTING 107 MG/DL (70-100); MAGNESIUM LEVEL 2.1 MG/DL (1.8-2.4); POTASSIUM SERUM 4.6 MEQ/L (3.5-5.1); SODIUM LEVEL 140 MEQ/L (136-145); TOTAL PROTEIN 7.6 GM/DL (6.4-8.2)
--- NOTE | 2021-04-08 11:53 | IPNPDOC ---
PM&R Progress Note DATE OF SERVICE: Apr 08, 2021 Vocational Placement Specialist Progress Note DATE OF ADMISSION: Apr 04, 2021 at 15:30 DATE OF SERVICE: 04/08/2021 ADMITTING DIAGNOSES: Anemia. Menometrorrhagia. Super morbid obesity. Diastolic congestive heart failure. Hypertension. Obstructive sleep apnea. Status post acute hypoxemic hypercapnic respiratory failure. Atelectasis. Asthma Metabolic alkalosis. Protein C deficiency with history of PE. Thyroid nodule CHIEF COMPLAINT: . Profound fatigue. Dyspnea on exertion. Insomnia. Anxiety HISTORY This is a 60-year-old female with super morbid obesity, diastolic heart failure, preserved ejection fraction of 60-65%,obstructive sleep apnea, hypertension, Protein C deficiency, history of pulmonary embolism in 2009 on anticoagulants with history of depression, seasonal allergies, and status post two sections. She was in her usual state of health when she developed severe dyspnea and worsening dyspnea on exertion about 1 month ago. The patient was initially on Lasix, but was discontinued by her primary care physician since she has lost about 80 pounds over the last 2 years. She had been waking up at night with paroxysmal nocturnal dyspnea due to shortness of breath and had not slept in her bed for many months. She was experiencing worsening weakness with difficulty ambulating. She also noted vaginal bleeding for the past few months, passing large clots and Hemoglobin was noted to have decreased from baseline of 14.9 to 9.1 at time of acute hospital admission. There was no history of GI bleed, hematemesis, bright red blood per rectum, black tarry stools, or coffee ground emesis. She denies any fever, chills, or cough, sore throat, urgency, frequency. 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 Acute hospital course was also noted for acute on chronic hypercapnic hypoxemic respiratory failure secondary to acute exacerbation of CHS requiring aggressive diuresis complicated by metabolic alkalosis improved with acetazolamide administration. Thus it was recommended that consideration for Lasix as an outpatient be included in her primary care post hospital plan. She was having chronic hypercarbia, BiPAP settings needed to be adjusted 16/8 with O2 bleed of 3-4 L a minute and required 3 L of continuous oxygen while awake. This was felt secondary to atelectasis and perhaps restrictive physiology due to the morbid obesity, is also noted that she had an episode of asthma requiring course of prednisone along with Advair. Patient is known to have protein C deficiency with DVT on chronic anticoagulation. There was some debate back and forth and decision was made to hold Xarelto until she achieves better control of vaginal bleeding with Provera and continue with heparin in the interim. Other note. incidental thyroid nodule, TSH 0.772 noted, followed up with FNA is recommended. Despite the multiple com plications and complexity, the patient has not achieved sufficient stabilization is recommended for admission to acute rehabilitation for comprehensive rehabilitative interventions. 04.06.2021 Patient notes continued challenged with sleeping on the bariatric bed, getting short of breath chipping off anxiety and panic. We discussed strategies to prevent that by using relaxation techniques, counted breathing techniques and guided visualization. Preferred position of comfort is left side-lying she is encouraged to utilize that. 04.07.2021 Still with some sleep challenges, a bit better, struggling with different BIPAP mask than prior CPAP mask. Discussed dietary options, meal planning, finding wa ys to avoid ordering double carbs with meals, increasing vegetables, healthy low glycemic, low sodium snack ideas. Open to discussion further with metal ceiling hanger, says she wants to know how to do better. Reviewed portion sizing. 04.08.2021 Sleeping better, making better choices is pleased to note that today she ordered a white omelette with that. Struggles, Diaz. She is improved. Respiratory status seems to be improving with the addition of more diuretics and aggressive pulmonary toilet. She is feeling encouraged. REVIEW OF SYSTEMS: The following is a completed review of systems and has been reviewed. Review of systems otherwise unremarkable. PAIN: Patient self reports mild to moderate intermittent lower abdominal pain. EYES: No recent vision changes. EARS, NOSE, & THROAT: No throat pain, or dysphagia, or rhinorrhea. CARDIOVASCULAR: Denies chest pain or palpitations. PULMONARY: Admits shortness of breath worse on exertion. GASTROINTESTINAL: Denies constipation/diarrhea. GENITOURINARY: Vaginal bleeding occasionally passing large clots . MUSCULOSKELETAL: Chronic low back and bilateral knee pain, worse on the left . NEUROLOGICAL:. No focal deficits HEMATOLOGICAL: . History of protein C deficiency with increased risk of clots SKIN: . No reported breakdowns PSYCHIATRIC: Anxiety with some depressive features and feelings of remorse for her current situation All other review of systems found to be negative. PHYSICAL EXAMINATION: VITAL SIGNS: Please see below. Weight 200 kg down 4 kg earlier this week, back up to 207.7 GENERAL: Pleasant and cooperative. No acute distress. Alert and oriented times three, rotound woman seated breathless in chair with NC at 3 L. HEENT: PERRL. Extraocular movements intact. Clear conjunctiva, no adenopathy or thyromegaly. Full cervical range of motion without tenderness or spasm. Oropharynx benign, moist mucosa. CARDIOVASCULAR: Regular rate and rhythm. III/ murmurs LUNGS: increased bilaterally scattered basilar wheezes both yeager and decreas ed breath sounds No rhonchi. Struggles to get IC over 1000 ABDOMEN: Soft, nontender, distended. Positive bowel sounds.unable to assess organomegaly. NEUROLOGICAL: Alert and oriented times three. Cranial nerves II through XII grossly intact. Sensation intact. EXTREMITIES: 5 /5 mobile paint specialist SKIN: intact, chronic venous stasis hyperpigmentation changes, intertriginous rashes. LABORATORY DATA: Please see below. 04/06/2021 , hemoglobin, holding and 8.3, UA noted for 2+ protein, 3+ blood, negative leukocyte esterase, fasting blood sugar 120 04/04/2021 lymph nodes. Fasting blood sugar 1:15, calcium 8.8, magnesium 2.3, hemoglobin 8.6, hematocrit 31.1, weight 207.7kg IMAGING: Imaging documentation personally reviewed by record. FUNCTIONAL STATUS: 04.08.2021 Pt completes bed mobility from 26" height to simulate home setup with SBA using leg cadworx piping designer; pt experiences SOB and discomfort lying flat in bed; discussed use of wedge to assist in propping her up at home or a hospital bed. Pt ambulates 35'x2 with 4ww and 2L o2 donned, SPo2 following ambulation 90-92%. Pt reports she becomes fearful when walking resulting in more SOB; educated and encouraged that pt has consistently ambulated 30-40' 4 days in a row with SBA using AD. 04.07.2021 Reviewed diaphragmatic breathing and relaxation strategies due to pt high level of anxiety and fear of SOB contributing to lack of sleep. Pt provided with written handouts regarding relaxation strategies that therapy will continue to educate on in order to improve pt quality of life. Continues work on safety in mobility, building endurance and strength. 6 Pt currently on 3L O2; RA on baseline. Pt Spo2 99% at rest and 92-94% with activity on 3L; will plan to titrate with activity per MD orders. Pt currently requires SBA- CGA with functional transfers and ambulation using 4ww. Pt limited by SOB and overall deconditioning. ASSESSMENT:- Anemia. Menometrorrhagia. Super morbid obesity. Diastolic congestive heart failure. Hypertension. Obstructive sleep apnea. Status post acute hypoxemic hypercapnic respiratory failure. Atelectasis. Asthma Metabolic alkalosis. Protein C deficiency with history of PE. Thyroid nodule PLAN: 1. Rehab- PT/OT advance gait and ADls, strengthen/stretch/maintain ROM all 4 limbs. We'll continue to work on timing pain medication with therapy interventions to optimize possible capacity to participate. Significant patient education involved in all aspects of rehab care. 2. Neuro- CHELA, insomnia, continue BiPAP adjustments needs aggressive close attention from respiratory therapy 3. Ortho- DJD bilateral knees, low back, continue with various. Therapeutic modalities 4. Cardiac- , decompensated diastolic congestive heart failure with preserved systolic function EF 60% on echo, symptomatic anemia. Gaining weight, more respiratory distress, balancing pulmonary toilet with cardiac demands. -HTN c/u ARB -HLD- c/u Zocor 5. Resp -history PE, S/p Acute hypercapnic respiratory failure on Chronic hypoxic respiratory failure - Likely multifactorial 2/2 Acute CHF exacerbation, superimposed with OHS and CHELA- may need different mask, continue incentive spirometry, monitor for infection. Wheezing was increasing yesterday, improving today with increased diuretic. Xarelto temporarily held until bleeding abates covering with subcutaneous heparin 6. Endo- hx of suspicious thyroid nodule in need of further assessment. Possibly could be impacting metabolic dysfunction. 7. - hematuria, menometrorrhagia, hopeful for cessation with medroxyprogesterone. CURRICULUM COUNSELOR to follow as an outpatient 8. GI ppx-history of GERD, Protonix, super morbid obesity, some decrease in weight, possibly related to ongoing diuresis and combination of activity and dietary changes. Continue dietary education and counseling. PROGNOSIS: Good ESTIMATED LENGTH OF STAY:7-14 days. PROJECTED DISCHARGE DESTINATION: Home with family support and any durable medical equipment required to increase functional safety and mobility. TIME SPENT COUNSELING AND COORDINATING INITIAL CARE: Greater than 30 minutes. This document is generated using speech recognition software which may result in grammatical, typographical and individual word errors. Allergies Coded Allergies: No Known Allergies (Verified Allergy, Unknown, 03/18/21) Vital Signs Vital Signs Date Time Temp Pulse Resp B/P (MAP) Pulse Ox O2 Delivery O2 Flow Rate FiO2 04/08/21 09:00 3.0 04/08/21 06:03 89 139/65 04/08/21 06:00 97.4 20 97 Nasal Cannula Laboratory Data CBC/BMP Laboratory Tests 04/07/21 13:59 04/08/21 07:12 Labs 24H Laboratory Tests 2 04/07/21 13:59: Anion Gap 2L, Glomerular Filtration Rate > 60.0, Calcium Level 7.4L, GN-Tib-R-Type Natriuretic Peptide 2696H 04/07/21 16:32: Bedside Glucose (Misc Panel) 110 04/07/21 19:27: Bedside Glucose (Misc Panel) 140H 04/08/21 05:17: Bedside Glucose (Misc Panel) 104 04/08/21 07:12: Immature Granulocyte % (Auto) 0.9, Neutrophils (%) (Auto) 82.6H, Lymphocytes (%) (Auto) 7.8L, Monocytes (%) (Auto) 6.9, Eosinophils (%) (Auto) 1.3, Basophils (%) (Auto) 0.5, Neutrophils # (Auto) 8.9H, Lymphocytes # (Auto) 0.8L, Monocytes # (Auto) 0.7, Eosinophils # (Auto) 0.1, Basophils # (Auto) 0.1, Nucleated Red Blood Cells % (auto) 0.7H, Anion Gap 2L, Glomerular Filtration Rate > 60.0, Calcium Level 7.8L, Magnesium Level 2.1, Total Bilirubin 0.5, Aspartate Amino Transf (AST/SGOT) 9, Alanine Aminotransferase (ALT/SGPT) 16, Alkaline Phosphatase 51, Total Protein 7.6, Albumin 3.2, Albumin/Globulin Ratio 0.7L 04/08/21 11:20: Bedside Glucose (Misc Panel) 112 Current Medications Current Medications Current Medications Medications (Trade) Dose Ordered Sig/Hosea Route PRN Reason Start Time Stop Time Status Last Admin Dose Admin Acetaminophen (Tylenol Arthritis Er) 1,300 mg Q8H PO 04/04/21 22:00 04/08/21 06:02 Acetaminophen (Tylenol Tab) 650 mg Q4HP PRN PO MILD PAIN (PS 1-4) 04/04/21 18:10 04/04/21 19:37 DC Albuterol Sulfate (Proventil, Ventolin Hfa) 2 puff Q4HP PRN INH SHORTNESS OF BREATH 04/04/21 18:40 04/04/21 21:59 Ascorbic Acid (Vitamin C) 500 mg BID PO 04/06/21 09:00 04/08/21 08:06 Buspirone HCl (Buspar) 7.5 mg BIDP PRN PO ANXIETY/AGITATION 04/04/21 19:00 04/08/21 08:06 Dextrose (Dextrose 50%) 25 ml ASDIRECTED PRN IV SEE LABEL COMMENTS 04/04/21 19:00 Ferrous Gluconate (Fergon) 324 mg BID PO 04/06/21 09:00 04/08/21 08:06 Glucagon (Glucagon) 1 mg ASDIRECTED PRN SC SEE LABEL COMMENTS 04/04/21 19:00 Glucose (Glucose) 16 GM ASDIRECTED PRN PO SEE LABEL COMMENTS 04/04/21 19:00 Heparin Sodium (Porcine) (Heparin) 5,000 units Q8H SQ 04/05/21 14:00 04/08/21 06:02 Home Med (Med Rec Complete!) ASDIRECTED XX 04/04/21 17:00 04/04/21 17:00 DC Insulin Human Lispro (HumaLOG INSULIN) See Protocol Table AC SC 04/05/21 07:30 04/07/21 08:21 Insulin Human Lispro (HumaLOG INSULIN) See Protocol Table QHS SC 04/04/21 21:00 Medroxyprogesterone Acetate (Provera) 10 mg BID PO 04/04/21 21:00 04/08/21 08:06 Metoprolol Tartrate (Lopressor) 25 mg Q8H PO 04/04/21 22:00 04/08/21 06:03 Metoprolol Tartrate (Lopressor) 100 mg QPM@1800 PO 04/05/21 18:00 04/04/21 20:06 DC Montelukast Sodium (Singulair) 10 mg QPM@1800 PO 04/04/21 18:00 04/07/21 18:05 Nystatin (Mycostatin Powder, Nystop) erythematous area under breas... BID TOP 04/04/21 21:00 04/08/21 08:07 Omeprazole (PriLOSEC) 40 mg DAILY PO 04/04/21 09:00 04/08/21 08:06 Ondansetron HCl (Zofran) 4 mg Q6HP PRN PO NAUSEA 04/04/21 18:10 Polyethylene Glycol (Miralax) 1 pkt BID PO 04/04/21 21:00 04/08/21 08:05 Rivaroxaban (Xarelto) 20 mg QPM PO 04/04/21 21:00 04/04/21 18:49 DC Rivaroxaban (Xarelto) 20 mg QPM@1800 PO 04/12/21 18:00 04/05/21 12:14 DC Sodium Chloride ([place] Nasal [place]) 2 spray Q2HP PRN NA NASAL DRYNESS 04/04/21 19:00 Torsemide (Demadex) 20 mg DAILY PO 04/05/21 09:00 04/08/21 10:07 DC 04/08/21 08:06 Torsemide (Demadex) 30 mg BID PO 04/08/21 21:00 Trazodone HCl (Desyrel) 50 mg QHS PO 04/04/21 21:00 04/07/21 16:16 DC 04/06/21 21:18 Trazodone HCl (Desyrel) 75 mg QHS PO 04/07/21 21:00 04/07/21 21:00 Venlafaxine HCl (Effexor Xr) 37.5 mg QPM@1800 PO 04/04/21 18:00 04/07/21 18:05 LUISA HOOVER MD Apr 08, 2021 11:53
[2021-04-08 14:00] VITALS: BP 123/58
[2021-04-08] MEDS: VENLAFAXINE **XR** 37.5 MG CAPSULE PO SCH (18:03)
[2021-04-08] MEDS: MONTELUKAST 10 MG TAB PO SCH (18:03)
[2021-04-08] MEDS: TORSEMIDE 10 MG TABLET PO SCH (20:53)
[2021-04-08] MEDS: traZODone 50 MG TAB PO SCH (20:53)
[2021-04-08 22:00] VITALS: BP 131/60
[2021-04-09] MEDS: busPIRone 5 MG TAB PO PRN ×2 (00:06→09:06)
[2021-04-09 05:51] VITALS: BP 138/83
[2021-04-09 05:55] VITALS: BP 138/83
[2021-04-09] MEDS: HEPARIN SOD (PORCINE) 5000UNITS/ML 1ML VIAL/SYRINGE SQ SCH (05:55)
[2021-04-09] MEDS: METOPROLOL TART 25 MG TABLET PO SCH (05:55)
[2021-04-09] MEDS: ACETAMINOPHEN 650MG ER TAB (TYLENOL ARTHRITIS) PO SCH (05:55)
[2021-04-09 06:33] LABS: BASO # 0.1 10^3/uL (0.0-0.2); BASO % 0.5 % (0.0-1.0); EOS # 0.1 10^3/uL (0.0-0.5); HEMATOCRIT 35.8 % (36.0-47.0); HEMOGLOBIN 9.4 g/dl (12.0-15.5); LYMPH # 1.4 10^3/uL (1.5-5.0); LYMPH % 10.6 % (24.0-44.0); MEAN CORPUSCULAR HGB CONC 26.3 g/dl (32.0-36.5); MEAN CORPUSCULAR VOLUME 91.3 fl (80.0-96.0); MONO # 1.1 10^3/uL (0.0-0.8); MONO % 8.5 % (2.0-8.0); NEUTROPHILS # 10.3 10^3/uL (1.5-8.5); NEUTROPHILS % 78.3 % (36.0-66.0); PLATELET COUNT, AUTOMATED 387 10^3/uL (150-450); RED BLOOD COUNT 3.92 10^6/uL (4.00-5.40); WHITE BLOOD COUNT 13.1 10^3/uL (4.0-10.0)
[2021-04-09 06:44] LABS: BLOOD UREA NITROGEN 28 MG/DL (7-18); CALCIUM LEVEL 7.8 MG/DL (8.8-10.2); CARBON DIOXIDE LEVEL 31 MEQ/L (21-32); CHLORIDE LEVEL 102 MEQ/L (98-107); CREATININE FOR GFR 1.03 MG/DL (0.55-1.30); GLOMERULAR FILTRATION RATE 58.2 (>45); GLUCOSE, FASTING 112 MG/DL (70-100); MAGNESIUM LEVEL 2.1 MG/DL (1.8-2.4); POTASSIUM SERUM 4.7 MEQ/L (3.5-5.1); SODIUM LEVEL 138 MEQ/L (136-145)
[2021-04-09] MEDS: HumaLOG INSULIN (NovoLOG) PER UNIT SC SCH ×2 (07:30→12:30)
[2021-04-09] MEDS: FERROUS GLUCONATE 324 MG TAB PO SCH ×2 (09:00→09:06)
[2021-04-09] MEDS: MIRALAX *UNIT DOSE* 17GM PACKET PO SCH ×2 (09:00→09:07)
[2021-04-09] MEDS: OMEPRAZOLE 20 MG CAP PO SCH ×2 (09:00→09:06)
[2021-04-09] MEDS: ASCORBIC ACID 500 MG TAB PO SCH ×2 (09:00→09:06)
[2021-04-09] MEDS: medroxyPROGESTERone 5MG TABLET PO SCH ×2 (09:00→09:06)
[2021-04-09] MEDS: TORSEMIDE 10 MG TABLET PO SCH (09:06)
[2021-04-09] MEDS: NYSTATIN 100,000 UNITS/GM TOPICAL PWD 15 GM TOP SCH (09:07)
[2021-04-09 09:15] VITALS: BP 143/65
[2021-04-09 09:30] LABS: ABG BASE EXCESS 1.6 (-2.0-2.0); ABG HCO3 32.3 MEQ/L (22.0-26.0); ABG O2 SATURATION 99.6 % (95.0-99.0); ABG PARTIAL PRESSURE O2 251.3 mmHg (75.0-100.0); ABG STANDARD HCO3 25.9 MEQ/L (22.0-26.0); ABG TOTAL CO2 35.3 MEQ/L (23.0-31.0)
[2021-04-09 09:34] LABS: ABG PARTIAL PRESSURE CO2 96.1 mmHg (35.0-45.0); ABG pH (ARTERIAL) 7.145 UNITS (7.350-7.450)
--- NOTE | 2021-04-09 09:39 | REP ---
INDICATION: SOB COMPARISON: 04/07/2021 TECHNIQUE: Portable AP view of the chest FINDINGS: Examination is significantly limited by underpenetration, poor inspiratory effort, and positioning. Prominent pulmonary vasculature and increased interstitial markings along with bilateral lower lobe opacities are suspected and most compatible with pulmonary edema. Multifocal pneumonia cannot be excluded. Small effusions cannot be excluded. No pneumothorax. IMPRESSION: Limited examination. Findings suspicious for pulmonary edema and differential diagnosis includes multifocal pneumonia. <Electronically signed by Sha Romeo > 04/09/21 [id number]
--- NOTE | 2021-04-09 09:56 | ECGEPIP ---
[facility] Test Date: 2021-04-09 Pat Name: MARLENY MARIE Department: Room: [place] [id number] Gender: Female Director Of Tax Services: jeison : 1960 Requested By: SAMIRA ROLDAN Order Number: [id number] Reading MD: Jaycob Upton Measurements Intervals [place] Rate: 105 P: 73 HI: 158 QRS: -45 QRSD: 106 T: 23 QT: 376 QTc: 496 Interpretive Statements Sinus tachycardia Possible Left atrial enlargement Low Precordial voltage QRS Incomplete right bundle branch block Left anterior fascicular block T wave abnormality, consider anterior ischemia Electronically Signed on 04-09-2021 9:56:42 EDT by Jaycob Upton
[2021-04-09 10:17] LABS: ABG HCO3 33.1 MEQ/L (22.0-26.0); ABG O2 SATURATION 75.5 % (95.0-99.0); ABG STANDARD HCO3 27.7 MEQ/L (22.0-26.0); ABG TOTAL CO2 35.5 MEQ/L (23.0-31.0)
[2021-04-09 10:26] LABS: ABG PARTIAL PRESSURE CO2 80.2 mmHg (35.0-45.0); ABG pH (ARTERIAL) 7.233 UNITS (7.350-7.450)
[2021-04-09 10:27] LABS: ABG PARTIAL PRESSURE O2 44.8 mmHg (75.0-100.0)
[2021-04-09 10:30] LABS: CK-MB VALUE MASS < 1.0 NG/ML (<3.6); CPK CREATINE PHOSPHOKINASE 31 U/L (26-192); MB/CK RELATIVE INDEX 3.23 (< OR =4); TROPONIN I < 0.02 NG/ML (< 0.10)
[2021-04-09 11:38] LABS: ABG BASE EXCESS 5.1 (-2.0-2.0); ABG HCO3 35.4 MEQ/L (22.0-26.0); ABG O2 SATURATION 99.1 % (95.0-99.0); ABG STANDARD HCO3 29.1 MEQ/L (22.0-26.0); ABG TOTAL CO2 38.3 MEQ/L (23.0-31.0)
[2021-04-09 11:41] LABS: ABG PARTIAL PRESSURE CO2 94.9 mmHg (35.0-45.0); ABG pH (ARTERIAL) 7.189 UNITS (7.350-7.450)
[2021-04-09 12:30] VITALS: BP 130/72
[2021-04-09 13:00] VITALS: BP 119/58
[2021-04-09] MEDS ORDERED: propofoL 1,000 MG in IV 1 EA IV SCH (14:25)
--- NOTE | 2021-04-09 15:02 | REP ---
INDICATION: s/p Intubation COMPARISON: 04/09/2021 at 9:21 a.m. TECHNIQUE: Portable AP view of the chest FINDINGS: Endotracheal tube approximately 3.7 cm above the florian. Nasogastric tube below the left hemidiaphragm in satisfactory position. No pneumothorax. Bilateral lower lobe opacities (left greater than right) suspected along with elements of pulmonary vascular congestion. IMPRESSION: 1. Endotracheal tube and nasogastric tube in satisfactory position. 2. Opacities and findings suggesting pulmonary vascular congestion. <Electronically signed by Sha Romeo > 04/09/21 1173
[2021-04-09] MEDS ORDERED: ALBUTEROL SULFATE 2.5 MG/0.5 ML INH NEB SOLN NEB SCH (16:00)
[2021-04-09] MEDS ORDERED: FUROSEMIDE 40MG/4ML VIAL (J1940) IV SCH (17:00)
[2021-04-12] MEDS ORDERED: RIVAROXABAN 20 MG TAB (XARELTO) PO SCH (18:00)
== END 2021-04-09 12:30 | disposition short-term general hospital (02) | DRG 861 ==
LOC: M PM&R 15:30
PROVIDERS: ADMIT Physical Medicine & Rehabilitation; ATTEND Physical Medicine & Rehabilitation
DX: R53.83 Other fatigue (principal); E87.3 Alkalosis; I11.0 Hypertensive heart disease with heart failure; Z68.45 Body mass index [BMI] 70 or greater, adult; I50.33 Acute on chronic diastolic (congestive) heart failure; E66.01 Morbid (severe) obesity due to excess calories; G47.33 Obstructive sleep apnea (adult) (pediatric); J45.909 Unspecified asthma, uncomplicated; E04.1 Nontoxic single thyroid nodule; G47.00 Insomnia, unspecified; R41.9 Unspecified symptoms and signs involving cognitive functions and awareness; R26.89 Other abnormalities of gait and mobility; Z86.711 Personal history of pulmonary embolism; Z79.01 Long term (current) use of anticoagulants; Z79.899 Other long term (current) drug therapy; J96.02 Acute respiratory failure with hypercapnia; J96.11 Chronic respiratory failure with hypoxia; K21.9 Gastro-esophageal reflux disease without esophagitis; F32.9 Major depressive disorder, single episode, unspecified; D62 Acute posthemorrhagic anemia; N93.9 Abnormal uterine and vaginal bleeding, unspecified

== ENCOUNTER 2021-04-09 12:01 | Inpatient (IN) | payer OTHER ==
[~2021-04-09] VITALS: Ht 165.1 cm; Wt 171.0 kg
[2021-04-09] VITALS (26 sets, daily range): BP systolic 102–146; BP diastolic 53–72
[~2021-04-09 12:01] MED LIST changes: +CHLORHEXIDINE GLUCONATE 0.12 % 15ML UDC (PERIDEX ORAL RINSE) MT SCH; +FLUO-96 PO; -FLUO20CA20 PO; -LISI20TA20 PO; +LISI20TA37 PO; -MONT10TA10 PO; +MONT10TA97 PO
[2021-04-09] MEDS ORDERED: HEPARIN SOD (PORCINE) 5000UNITS/ML 1ML VIAL/SYRINGE SC SCH (12:40)
[2021-04-09] MEDS ORDERED: HEPARIN DRIP 25,000 UNITS in IV 1 EA IV SCH (12:55)
[2021-04-09] MEDS ORDERED: HEPARIN SOD (PORCINE) 5000UNITS/ML 1ML VIAL/SYRINGE IV PRN (12:55)
[2021-04-09] MEDS ORDERED: HOME MED LIST COMPLETE! XX SCH (13:00)
[2021-04-09] MEDS ORDERED: FLUTICASONE PROP 0.05% NASAL SPRAY 16 GM (FLONASE) PRN (13:05)
[2021-04-09 13:48] LABS: ABG BASE EXCESS 4.7 (-2.0-2.0); ABG HCO3 35.3 MEQ/L (22.0-26.0); ABG O2 SATURATION 94.7 % (95.0-99.0); ABG PARTIAL PRESSURE O2 83.8 mmHg (75.0-100.0); ABG STANDARD HCO3 28.7 MEQ/L (22.0-26.0); ABG TOTAL CO2 38.3 MEQ/L (23.0-31.0)
[2021-04-09 13:51] LABS: ABG PARTIAL PRESSURE CO2 99.4 mmHg (35.0-45.0); ABG pH (ARTERIAL) 7.168 UNITS (7.350-7.450)
[2021-04-09 14:00] LABS: INR 1.1; PARTIAL THROMBOPLASTIN TIME 29.1 SECONDS (24.2-38.5); PROTHROMBIN TIME 14.4 SECONDS (12.5-14.3)
[2021-04-09] MEDS ORDERED: GLUCOSE 4GM CHEW TABLET PO PRN (14:00)
[2021-04-09] MEDS: ACETAMINOPHEN 650MG ER TAB (TYLENOL ARTHRITIS) PO SCH ×2 (14:00→22:00)
[2021-04-09] MEDS ORDERED: DEXTROSE 50% 50 ML SYRINGE IV PRN (14:00)
[2021-04-09] MEDS ORDERED: GLUCAGON INJ 1MG VIAL SC PRN (14:00)
[2021-04-09] MEDS: METOPROLOL TART 25 MG TABLET PO SCH ×2 (14:00→22:13)
[2021-04-09 14:03] LABS: D-DIMER QUANT 1005.01 ng/ml (<500)
[2021-04-09] MEDS ORDERED: SUCCINYLCHOLINE INJ 200 MG/10 ML VIAL (J0330) As Ordered ONE (14:14)
[2021-04-09] MEDS ORDERED: PROPOFOL 1,000 MG/100 ML VIAL As Ordered ONE (14:14)
[2021-04-09 14:20] LABS: CK-MB VALUE MASS < 1.0 NG/ML (<3.6); CPK CREATINE PHOSPHOKINASE 18 U/L (26-192); MB/CK RELATIVE INDEX 5.56 (< OR =4); TROPONIN I < 0.02 NG/ML (< 0.10)
[2021-04-09] MEDS ORDERED: SUCCINYLCHOLINE INJ 200 MG/10 ML VIAL (J0330) IV STA (14:49)
[2021-04-09] MEDS ORDERED: propofoL 200 MG/20 ML VIAL IV ONE (14:50)
[2021-04-09] MEDS: propofoL 1,000 MG in IV 1 EA IV SCH ×7 (14:56→23:02)
[2021-04-09] MEDS: FUROSEMIDE 40MG/4ML VIAL (J1940) IV SCH ×2 (15:29→23:06)
[2021-04-09] MEDS: HEPARIN SOD (PORCINE) 5000UNITS/ML 1ML VIAL/SYRINGE SQ SCH ×2 (15:29→23:06)
[2021-04-09 16:15] LABS: ABG HCO3 34.2 MEQ/L (22.0-26.0); ABG TOTAL CO2 36.3 MEQ/L (23.0-31.0)
[2021-04-09 16:17] LABS: ABG BASE EXCESS 6.8 (-2.0-2.0); ABG O2 SATURATION 98.2 % (95.0-99.0); ABG PARTIAL PRESSURE O2 110.4 mmHg (75.0-100.0); ABG STANDARD HCO3 30.7 MEQ/L (22.0-26.0); ABG pH (ARTERIAL) 7.323 UNITS (7.350-7.450)
[2021-04-09 16:18] LABS: ABG PARTIAL PRESSURE CO2 67.4 mmHg (35.0-45.0)
[2021-04-09] MEDS ORDERED: HumaLOG INSULIN (NovoLOG) PER UNIT SC SCH ×2 (17:30→21:00)
[2021-04-09] MEDS: HumaLOG INSULIN (NovoLOG) PER UNIT SC SCH (18:00)
[2021-04-09] MEDS: CHLORHEXIDINE GLUCONATE 0.12 % 15ML UDC (PERIDEX ORAL RINSE) MT SCH (20:44)
[2021-04-09] MEDS: medroxyPROGESTERone 5MG TABLET PO SCH (20:44)
[2021-04-09] MEDS: MONTELUKAST 10 MG TAB PO SCH (20:44)
[2021-04-09] MEDS: NYSTATIN 100,000 UNITS/GM TOPICAL PWD 15 GM TOP SCH (20:45)
[2021-04-10] VITALS (25 sets, daily range): BP systolic 103–137; BP diastolic 51–69
[2021-04-10] MEDS: propofoL 1,000 MG in IV 1 EA IV SCH ×12 (01:20→22:51)
[2021-04-10 05:01] LABS: BASO % 0.3 % (0.0-1.0); EOS % 0.1 % (0.0-3.0); HEMATOCRIT 29.2 % (36.0-47.0); HEMOGLOBIN 7.9 g/dl (12.0-15.5); LYMPH # 0.6 10^3/uL (1.5-5.0); MEAN CORPUSCULAR HEMOGLOBIN 23.7 pg (27.0-33.0); MEAN CORPUSCULAR HGB CONC 27.1 g/dl (32.0-36.5); MEAN CORPUSCULAR VOLUME 87.4 fl (80.0-96.0); MONO # 0.6 10^3/uL (0.0-0.8); MONO % 5.2 % (2.0-8.0); NEUTROPHILS # 9.8 10^3/uL (1.5-8.5); NEUTROPHILS % 88.6 % (36.0-66.0); PLATELET COUNT, AUTOMATED 348 10^3/uL (150-450); RED BLOOD COUNT 3.34 10^6/uL (4.00-5.40); WHITE BLOOD COUNT 11.1 10^3/uL (4.0-10.0)
[2021-04-10 05:21] LABS: BLOOD UREA NITROGEN 27 MG/DL (7-18); CALCIUM LEVEL 7.6 MG/DL (8.8-10.2); CARBON DIOXIDE LEVEL 35 MEQ/L (21-32); CHLORIDE LEVEL 100 MEQ/L (98-107); CREATININE FOR GFR 0.94 MG/DL (0.55-1.30); GLOMERULAR FILTRATION RATE > 60.0 (>45); GLUCOSE, FASTING 115 MG/DL (70-100); POTASSIUM SERUM 4.2 MEQ/L (3.5-5.1); SODIUM LEVEL 139 MEQ/L (136-145)
[2021-04-10] MEDS: ACETAMINOPHEN 650MG ER TAB (TYLENOL ARTHRITIS) PO SCH (05:30)
[2021-04-10 05:57] LABS: ABG BASE EXCESS 4.5 (-2.0-2.0); ABG HCO3 30.5 MEQ/L (22.0-26.0); ABG O2 SATURATION 99.1 % (95.0-99.0); ABG STANDARD HCO3 28.5 MEQ/L (22.0-26.0); ABG TOTAL CO2 32.2 MEQ/L (23.0-31.0)
[2021-04-10] MEDS: HumaLOG INSULIN (NovoLOG) PER UNIT SC SCH ×4 (06:00→18:00)
[2021-04-10] MEDS: METOPROLOL TART 25 MG TABLET PO SCH ×3 (06:01→22:11)
[2021-04-10] MEDS: HEPARIN SOD (PORCINE) 5000UNITS/ML 1ML VIAL/SYRINGE SQ SCH ×3 (07:12→22:10)
[2021-04-10] MEDS: FUROSEMIDE 40MG/4ML VIAL (J1940) IV SCH ×3 (07:12→22:10)
[2021-04-10] MEDS: CHLORHEXIDINE GLUCONATE 0.12 % 15ML UDC (PERIDEX ORAL RINSE) MT SCH ×2 (08:26→20:46)
[2021-04-10] MEDS: medroxyPROGESTERone 5MG TABLET PO SCH ×2 (08:27→20:45)
[2021-04-10] MEDS: PANTOPRAZOLE 40MG VIAL (C9113 PER 1) IV SCH (08:27)
[2021-04-10] MEDS: NYSTATIN 100,000 UNITS/GM TOPICAL PWD 15 GM TOP SCH ×2 (08:28→20:46)
[2021-04-10 12:13] LABS: HEMATOCRIT 29.6 % (36.0-47.0); HEMOGLOBIN 8.1 g/dl (12.0-15.5)
[2021-04-10 17:59] LABS: HEMATOCRIT 29.5 % (36.0-47.0); HEMOGLOBIN 8.1 g/dl (12.0-15.5)
[2021-04-10] MEDS: MONTELUKAST 10 MG TAB PO SCH (20:45)
[2021-04-11] VITALS (23 sets, daily range): BP systolic 102–119; BP diastolic 50–59
[2021-04-11 00:09] LABS: HEMATOCRIT 30.8 % (36.0-47.0); HEMOGLOBIN 8.5 g/dl (12.0-15.5)
[2021-04-11] MEDS: propofoL 1,000 MG in IV 1 EA IV SCH ×12 (00:49→22:33)
[2021-04-11 04:20] LABS: BASO % 0.3 % (0.0-1.0); EOS # 0.1 10^3/uL (0.0-0.5); EOS % 0.7 % (0.0-3.0); HEMATOCRIT 29.5 % (36.0-47.0); LYMPH # 0.6 10^3/uL (1.5-5.0); LYMPH % 5.6 % (24.0-44.0); MEAN CORPUSCULAR HEMOGLOBIN 23.5 pg (27.0-33.0); MEAN CORPUSCULAR HGB CONC 27.1 g/dl (32.0-36.5); MEAN CORPUSCULAR VOLUME 86.8 fl (80.0-96.0); MONO # 0.6 10^3/uL (0.0-0.8); MONO % 5.2 % (2.0-8.0); NEUTROPHILS # 9.9 10^3/uL (1.5-8.5); NEUTROPHILS % 87.7 % (36.0-66.0); PLATELET COUNT, AUTOMATED 325 10^3/uL (150-450); WHITE BLOOD COUNT 11.3 10^3/uL (4.0-10.0)
[2021-04-11 04:52] LABS: BLOOD UREA NITROGEN 18 MG/DL (7-18); CALCIUM LEVEL 7.4 MG/DL (8.8-10.2); CARBON DIOXIDE LEVEL 40 MEQ/L (21-32); CHLORIDE LEVEL 99 MEQ/L (98-107); CREATININE FOR GFR 0.72 MG/DL (0.55-1.30); GLOMERULAR FILTRATION RATE > 60.0 (>45); GLUCOSE, FASTING 105 MG/DL (70-100); POTASSIUM SERUM 3.6 MEQ/L (3.5-5.1); SODIUM LEVEL 141 MEQ/L (136-145)
[2021-04-11] MEDS: HumaLOG INSULIN (NovoLOG) PER UNIT SC SCH ×4 (05:13→18:00)
[2021-04-11 05:25] LABS: ABG BASE EXCESS 12.1 (-2.0-2.0); ABG HCO3 38.1 MEQ/L (22.0-26.0); ABG O2 SATURATION 95.6 % (95.0-99.0); ABG PARTIAL PRESSURE CO2 59.2 mmHg (35.0-45.0); ABG PARTIAL PRESSURE O2 78.4 mmHg (75.0-100.0); ABG STANDARD HCO3 35.8 MEQ/L (22.0-26.0); ABG TOTAL CO2 39.9 MEQ/L (23.0-31.0); ABG pH (ARTERIAL) 7.426 UNITS (7.350-7.450)
[2021-04-11] MEDS: METOPROLOL TART 25 MG TABLET PO SCH ×3 (05:45→22:39)
[2021-04-11] MEDS: HEPARIN SOD (PORCINE) 5000UNITS/ML 1ML VIAL/SYRINGE SQ SCH ×3 (06:09→22:39)
[2021-04-11] MEDS: FUROSEMIDE 40MG/4ML VIAL (J1940) IV SCH ×3 (06:10→22:41)
[2021-04-11 08:51] LABS: MAGNESIUM LEVEL 1.8 MG/DL (1.8-2.4); PHOSPHORUS LEVEL 3.1 MG/DL (2.5-4.9)
[2021-04-11] MEDS: NYSTATIN 100,000 UNITS/GM TOPICAL PWD 15 GM TOP SCH ×2 (08:59→20:17)
[2021-04-11] MEDS: medroxyPROGESTERone 5MG TABLET PO SCH ×2 (08:59→20:17)
[2021-04-11] MEDS: PANTOPRAZOLE 40MG VIAL (C9113 PER 1) IV SCH (08:59)
[2021-04-11] MEDS: CHLORHEXIDINE GLUCONATE 0.12 % 15ML UDC (PERIDEX ORAL RINSE) MT SCH ×2 (08:59→20:16)
[2021-04-11] MEDS ORDERED: POTASSIUM CHLORIDE 10MEQ SR TABLET PO ONE (09:30)
[2021-04-11] MEDS ORDERED: MORPHINE 2 MG/ML 1ML VIAL (J2270) IV PRN (10:00)
[2021-04-11] MEDS ORDERED: KCL 10MEQ/100ML SWI (KRUN) 10 MEQ in IV 1 EA IV ONE (10:00)
[2021-04-11] MEDS ORDERED: POTASSIUM CHLORIDE 10% LIQ 20 MEQ/15 ML UDC PO ONE (10:15)
[2021-04-11] MEDS ORDERED: MAG SULF 1GM/100ML (MAG RUN) 1 GM in IV 1 EA IV ONE (11:45)
[2021-04-11] MEDS ORDERED: VANCOMYCIN HCL 750 MG, VIAL MATE ADAPTER 1 EACH in NS 250 ML IV SCH (12:05)
[2021-04-11] MEDS: POLYVINYL ALCOHOL OPHTH SOLN 15 ML(LIQUITEARS) OU PRN (12:54)
[2021-04-11] MEDS: ALBUTEROL 90 MCG/ACT 8GM HFA INHALER INH PRN (13:55)
[2021-04-11] MEDS: PIPERACILLIN/TAZOBACTAM SOD 3.375 GM in D5W MINI-BAG PLUS 50 ML IV SCH ×2 (14:14→18:28)
[2021-04-11] MEDS ORDERED: IPRATROPIUM 0.5MG/ALBUTEROL 2.5MG INH SOL UD 3ML (DUONEB) NEB PRN (14:35)
[2021-04-11] MEDS ORDERED: VANCOMYCIN HCL 1,000 MG, VIAL MATE ADAPTER 1 EACH in NS 250 ML IV SCH (15:00)
[2021-04-11] MEDS: MONTELUKAST 10 MG TAB PO SCH (20:17)
[2021-04-11] MEDS: ACETAMINOPHEN 325 MG/10.15 ML UDC NG PRN (22:40)
[2021-04-12] VITALS (23 sets, daily range): BP systolic 108–139; BP diastolic 53–62
[2021-04-12] MEDS: propofoL 1,000 MG in IV 1 EA IV SCH ×10 (00:39→23:33)
[2021-04-12] MEDS: PIPERACILLIN/TAZOBACTAM SOD 3.375 GM in D5W MINI-BAG PLUS 50 ML IV SCH ×4 (00:39→18:06)
[2021-04-12 04:32] LABS: BASO % 0.4 % (0.0-1.0); EOS # 0.1 10^3/uL (0.0-0.5); EOS % 1.3 % (0.0-3.0); HEMATOCRIT 30.7 % (36.0-47.0); HEMOGLOBIN 8.2 g/dl (12.0-15.5); LYMPH # 0.7 10^3/uL (1.5-5.0); LYMPH % 6.4 % (24.0-44.0); MEAN CORPUSCULAR HEMOGLOBIN 23.1 pg (27.0-33.0); MEAN CORPUSCULAR HGB CONC 26.7 g/dl (32.0-36.5); MEAN CORPUSCULAR VOLUME 86.5 fl (80.0-96.0); MONO # 0.7 10^3/uL (0.0-0.8); NEUTROPHILS # 9.6 10^3/uL (1.5-8.5); NEUTROPHILS % 85.4 % (36.0-66.0); PLATELET COUNT, AUTOMATED 294 10^3/uL (150-450); RED BLOOD COUNT 3.55 10^6/uL (4.00-5.40); WHITE BLOOD COUNT 11.2 10^3/uL (4.0-10.0)
[2021-04-12 04:49] LABS: BLOOD UREA NITROGEN 16 MG/DL (7-18); CALCIUM LEVEL 7.6 MG/DL (8.8-10.2); CARBON DIOXIDE LEVEL 41 MEQ/L (21-32); CHLORIDE LEVEL 98 MEQ/L (98-107); CREATININE FOR GFR 0.78 MG/DL (0.55-1.30); GLOMERULAR FILTRATION RATE > 60.0 (>45); GLUCOSE, FASTING 112 MG/DL (70-100); POTASSIUM SERUM 3.7 MEQ/L (3.5-5.1); SODIUM LEVEL 139 MEQ/L (136-145)
[2021-04-12 05:47] LABS: ABG BASE EXCESS 10.8 (-2.0-2.0); ABG O2 SATURATION 93.3 % (95.0-99.0); ABG PARTIAL PRESSURE CO2 59.8 mmHg (35.0-45.0); ABG PARTIAL PRESSURE O2 68.3 mmHg (75.0-100.0); ABG STANDARD HCO3 34.4 MEQ/L (22.0-26.0); ABG TOTAL CO2 38.8 MEQ/L (23.0-31.0); ABG pH (ARTERIAL) 7.409 UNITS (7.350-7.450)
[2021-04-12] MEDS: HumaLOG INSULIN (NovoLOG) PER UNIT SC SCH ×4 (06:00→17:59)
[2021-04-12] MEDS: METOPROLOL TART 25 MG TABLET PO SCH ×3 (06:07→22:17)
[2021-04-12] MEDS: FUROSEMIDE 40MG/4ML VIAL (J1940) IV SCH ×3 (06:37→23:34)
[2021-04-12] MEDS: HEPARIN SOD (PORCINE) 5000UNITS/ML 1ML VIAL/SYRINGE SQ SCH ×3 (06:37→23:33)
[2021-04-12] MEDS ORDERED: POTASSIUM CHLORIDE 10% LIQ 20 MEQ/15 ML UDC PO ONE (08:00)
[2021-04-12] MEDS: PANTOPRAZOLE 40MG VIAL (C9113 PER 1) IV SCH (08:57)
[2021-04-12] MEDS: CHLORHEXIDINE GLUCONATE 0.12 % 15ML UDC (PERIDEX ORAL RINSE) MT SCH ×2 (08:57→20:29)
[2021-04-12] MEDS: NYSTATIN 100,000 UNITS/GM TOPICAL PWD 15 GM TOP SCH ×2 (08:57→20:30)
[2021-04-12] MEDS: medroxyPROGESTERone 5MG TABLET PO SCH ×2 (08:58→20:30)
[2021-04-12 10:42] LABS: ABG HCO3 42.3 MEQ/L (22.0-26.0); ABG PARTIAL PRESSURE CO2 56.7 mmHg (35.0-45.0); ABG PARTIAL PRESSURE O2 124.6 mmHg (75.0-100.0); ABG STANDARD HCO3 40.8 MEQ/L (22.0-26.0); ABG TOTAL CO2 44.1 MEQ/L (23.0-31.0); ABG pH (ARTERIAL) 7.491 UNITS (7.350-7.450)
[2021-04-12] MEDS: MONTELUKAST 10 MG TAB PO SCH (20:30)
[2021-04-13] VITALS (23 sets, daily range): BP systolic 102–125; BP diastolic 52–64
[2021-04-13] MEDS: PIPERACILLIN/TAZOBACTAM SOD 3.375 GM in D5W MINI-BAG PLUS 50 ML IV SCH ×4 (01:24→18:08)
[2021-04-13] MEDS: propofoL 1,000 MG in IV 1 EA IV SCH ×13 (02:37→22:56)
[2021-04-13 05:03] LABS: BASO % 0.4 % (0.0-1.0); EOS # 0.2 10^3/uL (0.0-0.5); EOS % 2.2 % (0.0-3.0); LYMPH # 0.7 10^3/uL (1.5-5.0); LYMPH % 7.3 % (24.0-44.0); MEAN CORPUSCULAR HEMOGLOBIN 22.7 pg (27.0-33.0); MEAN CORPUSCULAR HGB CONC 25.8 g/dl (32.0-36.5); MEAN CORPUSCULAR VOLUME 87.8 fl (80.0-96.0); MONO # 0.6 10^3/uL (0.0-0.8); MONO % 5.7 % (2.0-8.0); NEUTROPHILS # 8.4 10^3/uL (1.5-8.5); NEUTROPHILS % 83.8 % (36.0-66.0); PLATELET COUNT, AUTOMATED 268 10^3/uL (150-450); RED BLOOD COUNT 3.53 10^6/uL (4.00-5.40)
[2021-04-13 05:19] LABS: BLOOD UREA NITROGEN 16 MG/DL (7-18); CALCIUM LEVEL 7.6 MG/DL (8.8-10.2); CARBON DIOXIDE LEVEL 42 MEQ/L (21-32); CHLORIDE LEVEL 96 MEQ/L (98-107); CREATININE FOR GFR 0.76 MG/DL (0.55-1.30); GLOMERULAR FILTRATION RATE > 60.0 (>45); GLUCOSE, FASTING 105 MG/DL (70-100); POTASSIUM SERUM 3.5 MEQ/L (3.5-5.1); SODIUM LEVEL 138 MEQ/L (136-145)
[2021-04-13] MEDS: METOPROLOL TART 25 MG TABLET PO SCH ×3 (05:49→21:06)
[2021-04-13 05:55] LABS: ABG BASE EXCESS 9.4 (-2.0-2.0); ABG HCO3 34.8 MEQ/L (22.0-26.0); ABG O2 SATURATION 94.7 % (95.0-99.0); ABG PARTIAL PRESSURE CO2 53.3 mmHg (35.0-45.0); ABG PARTIAL PRESSURE O2 72.3 mmHg (75.0-100.0); ABG STANDARD HCO3 33.1 MEQ/L (22.0-26.0); ABG TOTAL CO2 36.5 MEQ/L (23.0-31.0); ABG pH (ARTERIAL) 7.433 UNITS (7.350-7.450)
[2021-04-13] MEDS: HumaLOG INSULIN (NovoLOG) PER UNIT SC SCH ×4 (05:58→17:48)
[2021-04-13] MEDS: FUROSEMIDE 40MG/4ML VIAL (J1940) IV SCH ×3 (06:30→22:51)
[2021-04-13] MEDS: HEPARIN SOD (PORCINE) 5000UNITS/ML 1ML VIAL/SYRINGE SQ SCH ×3 (06:30→22:51)
[2021-04-13] MEDS ORDERED: POTASSIUM CHLORIDE 10% LIQ 20 MEQ/15 ML UDC PO ONE (07:45)
[2021-04-13] MEDS: CHLORHEXIDINE GLUCONATE 0.12 % 15ML UDC (PERIDEX ORAL RINSE) MT SCH ×2 (08:35→21:05)
[2021-04-13] MEDS: medroxyPROGESTERone 5MG TABLET PO SCH ×2 (08:36→21:07)
[2021-04-13] MEDS: PANTOPRAZOLE 40MG VIAL (C9113 PER 1) IV SCH (08:36)
[2021-04-13] MEDS: NYSTATIN 100,000 UNITS/GM TOPICAL PWD 15 GM TOP SCH ×2 (08:37→21:08)
[2021-04-13] MEDS: POLYVINYL ALCOHOL OPHTH SOLN 15 ML(LIQUITEARS) OU PRN (08:37)
[2021-04-13] MEDS: MIDAZOLAM INJ 2MG/2ML VIAL (J2250 PER 1MG) IV PRN ×2 (12:20→16:19)
[2021-04-13] MEDS: MONTELUKAST 10 MG TAB PO SCH (21:07)
[2021-04-14] VITALS (23 sets, daily range): BP systolic 95–124; BP diastolic 50–65
[2021-04-14] MEDS: propofoL 1,000 MG in IV 1 EA IV SCH ×11 (00:39→23:59)
[2021-04-14] MEDS: PIPERACILLIN/TAZOBACTAM SOD 3.375 GM in D5W MINI-BAG PLUS 50 ML IV SCH ×3 (00:55→13:18)
[2021-04-14 05:27] LABS: BASO % 0.3 % (0.0-1.0); EOS # 0.3 10^3/uL (0.0-0.5); EOS % 3.6 % (0.0-3.0); HEMATOCRIT 31.7 % (36.0-47.0); HEMOGLOBIN 8.2 g/dl (12.0-15.5); LYMPH # 0.6 10^3/uL (1.5-5.0); MEAN CORPUSCULAR HEMOGLOBIN 22.7 pg (27.0-33.0); MEAN CORPUSCULAR HGB CONC 25.9 g/dl (32.0-36.5); MEAN CORPUSCULAR VOLUME 87.8 fl (80.0-96.0); MONO # 0.6 10^3/uL (0.0-0.8); NEUTROPHILS # 7.1 10^3/uL (1.5-8.5); NEUTROPHILS % 81.6 % (36.0-66.0); PLATELET COUNT, AUTOMATED 259 10^3/uL (150-450); RED BLOOD COUNT 3.61 10^6/uL (4.00-5.40); WHITE BLOOD COUNT 8.7 10^3/uL (4.0-10.0)
[2021-04-14 05:55] LABS: BLOOD UREA NITROGEN 17 MG/DL (7-18); CALCIUM LEVEL 7.6 MG/DL (8.8-10.2); CARBON DIOXIDE LEVEL 39 MEQ/L (21-32); CHLORIDE LEVEL 96 MEQ/L (98-107); CREATININE FOR GFR 0.74 MG/DL (0.55-1.30); GLOMERULAR FILTRATION RATE > 60.0 (>45); GLUCOSE, FASTING 107 MG/DL (70-100); POTASSIUM SERUM 3.9 MEQ/L (3.5-5.1); SODIUM LEVEL 142 MEQ/L (136-145)
[2021-04-14] MEDS: HumaLOG INSULIN (NovoLOG) PER UNIT SC SCH ×4 (06:00→18:00)
[2021-04-14 06:10] LABS: ABG BASE EXCESS 10.5 (-2.0-2.0); ABG HCO3 36.5 MEQ/L (22.0-26.0); ABG O2 SATURATION 96.4 % (95.0-99.0); ABG PARTIAL PRESSURE CO2 58.3 mmHg (35.0-45.0); ABG STANDARD HCO3 34.2 MEQ/L (22.0-26.0); ABG TOTAL CO2 38.2 MEQ/L (23.0-31.0); ABG pH (ARTERIAL) 7.414 UNITS (7.350-7.450)
[2021-04-14] MEDS: HEPARIN SOD (PORCINE) 5000UNITS/ML 1ML VIAL/SYRINGE SQ SCH ×3 (06:16→22:06)
[2021-04-14] MEDS: FUROSEMIDE 40MG/4ML VIAL (J1940) IV SCH (06:17)
[2021-04-14] MEDS: METOPROLOL TART 25 MG TABLET PO SCH ×3 (06:17→22:05)
[2021-04-14] MEDS: CHLORHEXIDINE GLUCONATE 0.12 % 15ML UDC (PERIDEX ORAL RINSE) MT SCH ×2 (08:18→21:15)
[2021-04-14] MEDS: medroxyPROGESTERone 5MG TABLET PO SCH ×2 (08:18→21:14)
[2021-04-14] MEDS: PANTOPRAZOLE 40MG VIAL (C9113 PER 1) IV SCH (08:18)
[2021-04-14] MEDS: NYSTATIN 100,000 UNITS/GM TOPICAL PWD 15 GM TOP SCH ×2 (08:19→21:15)
[2021-04-14] MEDS ORDERED: VANCOMYCIN HCL 1,000 MG, VIAL MATE ADAPTER 1 EACH in NS 250 ML IV SCH ×2 (08:30→14:00)
[2021-04-14] MEDS: FUROSEMIDE 100MG/10ML VIAL (J1940) IV SCH ×2 (09:43→16:19)
[2021-04-14] MEDS ORDERED: VANCOMYCIN HCL 1,000 MG, VIAL MATE ADAPTER 1 EACH in NS 250 ML IV ONE ×2 (10:00→11:00)
[2021-04-14] MEDS: ACETAMINOPHEN 325 MG/10.15 ML UDC NG PRN ×2 (11:08→18:51)
[2021-04-14] MEDS ORDERED: BISACODYL 10 MG SUPP PR ONE (12:15)
[2021-04-14] MEDS ORDERED: DOCUSATE SOD LIQ 100MG/10ML UDC GT PRN (17:00)
[2021-04-14] MEDS: ALBUTEROL 90 MCG/ACT 8GM HFA INHALER INH PRN (19:33)
[2021-04-14] MEDS: LINEZOLID 600 MG in IV 1 EA IV SCH (19:53)
[2021-04-14] MEDS: MONTELUKAST 10 MG TAB PO SCH (21:14)
[2021-04-15] VITALS (21 sets, daily range): BP systolic 101–135; BP diastolic 52–67
[2021-04-15] MEDS: HumaLOG INSULIN (NovoLOG) PER UNIT SC SCH ×4 (00:07→18:00)
[2021-04-15] MEDS: FUROSEMIDE 100MG/10ML VIAL (J1940) IV SCH ×3 (00:08→16:29)
[2021-04-15] MEDS: propofoL 1,000 MG in IV 1 EA IV SCH ×4 (01:10→06:46)
[2021-04-15 06:10] LABS: ABG BASE EXCESS 11.2 (-2.0-2.0); ABG HCO3 38.8 MEQ/L (22.0-26.0); ABG O2 SATURATION 98.2 % (95.0-99.0); ABG PARTIAL PRESSURE O2 113.8 mmHg (75.0-100.0); ABG pH (ARTERIAL) 7.353 UNITS (7.350-7.450)
[2021-04-15 06:14] LABS: ABG PARTIAL PRESSURE CO2 71.4 mmHg (35.0-45.0)
[2021-04-15] MEDS: METOPROLOL TART 25 MG TABLET PO SCH ×3 (06:29→22:00)
[2021-04-15] MEDS: HEPARIN SOD (PORCINE) 5000UNITS/ML 1ML VIAL/SYRINGE SQ SCH ×2 (06:30→14:24)
[2021-04-15 07:40] LABS: BASO % 0.4 % (0.0-1.0); EOS # 0.3 10^3/uL (0.0-0.5); EOS % 2.3 % (0.0-3.0); HEMATOCRIT 32.3 % (36.0-47.0); HEMOGLOBIN 8.5 g/dl (12.0-15.5); LYMPH # 0.7 10^3/uL (1.5-5.0); LYMPH % 6.4 % (24.0-44.0); MEAN CORPUSCULAR HEMOGLOBIN 23.1 pg (27.0-33.0); MEAN CORPUSCULAR HGB CONC 26.3 g/dl (32.0-36.5); MEAN CORPUSCULAR VOLUME 87.8 fl (80.0-96.0); MONO # 0.8 10^3/uL (0.0-0.8); MONO % 6.7 % (2.0-8.0); NEUTROPHILS # 9.3 10^3/uL (1.5-8.5); NEUTROPHILS % 83.6 % (36.0-66.0); RED BLOOD COUNT 3.68 10^6/uL (4.00-5.40); WHITE BLOOD COUNT 11.1 10^3/uL (4.0-10.0)
[2021-04-15] MEDS: POLYVINYL ALCOHOL OPHTH SOLN 15 ML(LIQUITEARS) OU PRN (07:50)
[2021-04-15 07:55] LABS: BLOOD UREA NITROGEN 16 MG/DL (7-18); CARBON DIOXIDE LEVEL 39 MEQ/L (21-32); CHLORIDE LEVEL 94 MEQ/L (98-107); CREATININE FOR GFR 0.77 MG/DL (0.55-1.30); GLOMERULAR FILTRATION RATE > 60.0 (>45); GLUCOSE, FASTING 98 MG/DL (70-100); POTASSIUM SERUM 3.5 MEQ/L (3.5-5.1); SODIUM LEVEL 138 MEQ/L (136-145); VANCOMYCIN LEVEL TROUGH 9.4 UG/ML (10.0-20.0)
[2021-04-15] MEDS: CHLORHEXIDINE GLUCONATE 0.12 % 15ML UDC (PERIDEX ORAL RINSE) MT SCH (08:35)
[2021-04-15] MEDS: NYSTATIN 100,000 UNITS/GM TOPICAL PWD 15 GM TOP SCH (08:36)
[2021-04-15] MEDS: medroxyPROGESTERone 5MG TABLET PO SCH ×2 (08:37→22:00)
[2021-04-15] MEDS: PANTOPRAZOLE 40MG VIAL (C9113 PER 1) IV SCH (08:37)
[2021-04-15] MEDS: LINEZOLID 600 MG in IV 1 EA IV SCH ×2 (08:37→21:55)
[2021-04-15] MEDS: IPRATROPIUM 0.5MG/ALBUTEROL 2.5MG INH SOL UD 3ML (DUONEB) NEB SCH ×5 (08:51→23:34)
[2021-04-15 09:02] LABS: PLATELET COUNT, AUTOMATED 269 10^3/uL (150-450)
[2021-04-15 09:09] LABS: ABG BASE EXCESS 12.4 (-2.0-2.0); ABG HCO3 37.9 MEQ/L (22.0-26.0); ABG O2 SATURATION 96.1 % (95.0-99.0); ABG PARTIAL PRESSURE CO2 55.2 mmHg (35.0-45.0); ABG PARTIAL PRESSURE O2 79.2 mmHg (75.0-100.0); ABG STANDARD HCO3 36.1 MEQ/L (22.0-26.0); ABG TOTAL CO2 39.6 MEQ/L (23.0-31.0); ABG pH (ARTERIAL) 7.455 UNITS (7.350-7.450)
[2021-04-15 10:31] LABS: MAGNESIUM LEVEL 2.2 MG/DL (1.8-2.4); NT-PRO BNP 4737 PG/ML (<125)
[2021-04-15] MEDS ORDERED: LIDOCAINE 1% MDV 20ML VIAL As Ordered ONE (14:23)
[2021-04-15] MEDS: MONTELUKAST 10 MG TAB PO SCH (22:00)
[2021-04-16] VITALS (16 sets, daily range): BP systolic 95–149; BP diastolic 55–72
[2021-04-16] MEDS: HEPARIN SOD (PORCINE) 5000UNITS/ML 1ML VIAL/SYRINGE SQ SCH ×4 (00:14→22:12)
[2021-04-16] MEDS: NYSTATIN 100,000 UNITS/GM TOPICAL PWD 15 GM TOP SCH ×2 (00:15→08:20)
[2021-04-16] MEDS: FUROSEMIDE 100MG/10ML VIAL (J1940) IV SCH ×3 (00:15→15:36)
[2021-04-16] MEDS: IPRATROPIUM 0.5MG/ALBUTEROL 2.5MG INH SOL UD 3ML (DUONEB) NEB SCH ×5 (03:18→20:40)
[2021-04-16 05:02] LABS: ABG BASE EXCESS 16.8 (-2.0-2.0); ABG HCO3 42.5 MEQ/L (22.0-26.0); ABG O2 SATURATION 98.8 % (95.0-99.0); ABG PARTIAL PRESSURE CO2 59.1 mmHg (35.0-45.0); ABG PARTIAL PRESSURE O2 108.4 mmHg (75.0-100.0); ABG STANDARD HCO3 40.7 MEQ/L (22.0-26.0); ABG TOTAL CO2 44.3 MEQ/L (23.0-31.0); ABG pH (ARTERIAL) 7.475 UNITS (7.350-7.450)
[2021-04-16] MEDS: METOPROLOL TART 25 MG TABLET PO SCH ×4 (05:24→22:12)
[2021-04-16] MEDS: SODIUM CHLORIDE 0.9% INJ 10 ML SYR IV SCH ×2 (05:25→18:56)
[2021-04-16 05:41] LABS: BASO % 0.3 % (0.0-1.0); EOS # 0.2 10^3/uL (0.0-0.5); EOS % 1.6 % (0.0-3.0); HEMATOCRIT 30.1 % (36.0-47.0); HEMOGLOBIN 7.9 g/dl (12.0-15.5); LYMPH # 0.7 10^3/uL (1.5-5.0); LYMPH % 6.4 % (24.0-44.0); MEAN CORPUSCULAR HGB CONC 26.2 g/dl (32.0-36.5); MEAN CORPUSCULAR VOLUME 87.8 fl (80.0-96.0); MONO # 0.7 10^3/uL (0.0-0.8); MONO % 6.4 % (2.0-8.0); NEUTROPHILS # 9.5 10^3/uL (1.5-8.5); NEUTROPHILS % 84.7 % (36.0-66.0); PLATELET COUNT, AUTOMATED 271 10^3/uL (150-450); RED BLOOD COUNT 3.43 10^6/uL (4.00-5.40); WHITE BLOOD COUNT 11.2 10^3/uL (4.0-10.0)
[2021-04-16] MEDS: HumaLOG INSULIN (NovoLOG) PER UNIT SC SCH ×5 (06:00→23:29)
[2021-04-16 06:19] LABS: BLOOD UREA NITROGEN 15 MG/DL (7-18); CALCIUM LEVEL 7.6 MG/DL (8.8-10.2); CARBON DIOXIDE LEVEL 43 MEQ/L (21-32); CHLORIDE LEVEL 94 MEQ/L (98-107); CREATININE FOR GFR 0.63 MG/DL (0.55-1.30); GLOMERULAR FILTRATION RATE > 60.0 (>45); GLUCOSE, FASTING 101 MG/DL (70-100); SODIUM LEVEL 138 MEQ/L (136-145)
[2021-04-16] MEDS ORDERED: POTASSIUM CHLORIDE 10MEQ SR TABLET PO ONE ×2 (08:00→16:00)
[2021-04-16] MEDS: LINEZOLID 600 MG in IV 1 EA IV SCH ×2 (08:18→20:23)
[2021-04-16] MEDS: PANTOPRAZOLE 40MG VIAL (C9113 PER 1) IV SCH (08:19)
[2021-04-16] MEDS: medroxyPROGESTERone 5MG TABLET PO SCH ×2 (08:20→20:24)
[2021-04-16 10:44] LABS: NT-PRO BNP 4527 PG/ML (<125)
[2021-04-16 13:52] LABS: BLOOD UREA NITROGEN 15 MG/DL (7-18); CALCIUM LEVEL 7.5 MG/DL (8.8-10.2); CARBON DIOXIDE LEVEL 40 MEQ/L (21-32); CHLORIDE LEVEL 94 MEQ/L (98-107); CREATININE FOR GFR 0.59 MG/DL (0.55-1.30); GLOMERULAR FILTRATION RATE > 60.0 (>45); GLUCOSE, FASTING 110 MG/DL (70-100); POTASSIUM SERUM 3.3 MEQ/L (3.5-5.1); SODIUM LEVEL 142 MEQ/L (136-145)
[2021-04-16] MEDS: SODIUM CHLORIDE 0.9% INJ 10 ML SYR IV PRN (18:57)
[2021-04-16] MEDS: MONTELUKAST 10 MG TAB PO SCH (20:23)
[2021-04-17] VITALS (11 sets, daily range): BP systolic 95–145; BP diastolic 53–92
[2021-04-17] MEDS: NYSTATIN 100,000 UNITS/GM TOPICAL PWD 15 GM TOP SCH ×3 (00:14→20:25)
[2021-04-17] MEDS: FUROSEMIDE 100MG/10ML VIAL (J1940) IV SCH ×3 (00:14→16:38)
[2021-04-17] MEDS: POLYVINYL ALCOHOL OPHTH SOLN 15 ML(LIQUITEARS) OU PRN ×2 (00:14→18:56)
[2021-04-17] MEDS: IPRATROPIUM 0.5MG/ALBUTEROL 2.5MG INH SOL UD 3ML (DUONEB) NEB SCH ×6 (00:35→20:46)
[2021-04-17 05:34] LABS: ABG BASE EXCESS 11.8 (-2.0-2.0); ABG HCO3 37.4 MEQ/L (22.0-26.0); ABG O2 SATURATION 93.4 % (95.0-99.0); ABG PARTIAL PRESSURE CO2 54.6 mmHg (35.0-45.0); ABG STANDARD HCO3 35.5 MEQ/L (22.0-26.0); ABG pH (ARTERIAL) 7.453 UNITS (7.350-7.450)
[2021-04-17] MEDS: HumaLOG INSULIN (NovoLOG) PER UNIT SC SCH ×4 (06:00→18:56)
[2021-04-17] MEDS: METOPROLOL TART 25 MG TABLET PO SCH ×3 (06:21→22:01)
[2021-04-17] MEDS: HEPARIN SOD (PORCINE) 5000UNITS/ML 1ML VIAL/SYRINGE SQ SCH ×3 (06:22→21:50)
[2021-04-17] MEDS: SODIUM CHLORIDE 0.9% INJ 10 ML SYR IV SCH ×2 (06:23→18:39)
[2021-04-17 07:39] LABS: BASO % 0.4 % (0.0-1.0); EOS # 0.1 10^3/uL (0.0-0.5); EOS % 1.3 % (0.0-3.0); HEMATOCRIT 32.8 % (36.0-47.0); HEMOGLOBIN 8.7 g/dl (12.0-15.5); LYMPH # 0.7 10^3/uL (1.5-5.0); LYMPH % 6.5 % (24.0-44.0); MEAN CORPUSCULAR HEMOGLOBIN 23.1 pg (27.0-33.0); MEAN CORPUSCULAR HGB CONC 26.5 g/dl (32.0-36.5); MEAN CORPUSCULAR VOLUME 87.2 fl (80.0-96.0); MONO # 0.8 10^3/uL (0.0-0.8); MONO % 7.1 % (2.0-8.0); NEUTROPHILS # 9.2 10^3/uL (1.5-8.5); NEUTROPHILS % 83.5 % (36.0-66.0); PLATELET COUNT, AUTOMATED 314 10^3/uL (150-450); RED BLOOD COUNT 3.76 10^6/uL (4.00-5.40); WHITE BLOOD COUNT 11.1 10^3/uL (4.0-10.0)
[2021-04-17 08:07] LABS: ALBUMIN 2.5 GM/DL (3.2-5.2); ALT/SGPT 27 U/L (12-78); BILIRUBIN,TOTAL 1.1 MG/DL (0.2-1.0); BLOOD UREA NITROGEN 14 MG/DL (7-18); CARBON DIOXIDE LEVEL 41 MEQ/L (21-32); CHLORIDE LEVEL 95 MEQ/L (98-107); CREATININE FOR GFR 0.54 MG/DL (0.55-1.30); GLOMERULAR FILTRATION RATE > 60.0 (>45); GLUCOSE, FASTING 107 MG/DL (70-100); MAGNESIUM LEVEL 2.1 MG/DL (1.8-2.4); POTASSIUM SERUM 3.4 MEQ/L (3.5-5.1); SODIUM LEVEL 141 MEQ/L (136-145); TOTAL PROTEIN 6.8 GM/DL (6.4-8.2)
[2021-04-17] MEDS: PANTOPRAZOLE 40MG VIAL (C9113 PER 1) IV SCH (08:34)
[2021-04-17] MEDS: LINEZOLID 600 MG in IV 1 EA IV SCH (08:34)
[2021-04-17] MEDS: medroxyPROGESTERone 5MG TABLET PO SCH ×2 (08:34→20:26)
[2021-04-17] MEDS: acetaZOLAMIDE 250 MG TAB PO SCH ×3 (12:28→20:26)
[2021-04-17] MEDS: SODIUM CHLORIDE 0.9% INJ 10 ML SYR IV PRN (18:39)
[2021-04-17 20:08] LABS: ALBUMIN 2.7 GM/DL (3.2-5.2); BLOOD UREA NITROGEN 14 MG/DL (7-18); CARBON DIOXIDE LEVEL 39 MEQ/L (21-32); CHLORIDE LEVEL 96 MEQ/L (98-107); CREATININE FOR GFR 0.56 MG/DL (0.55-1.30); GLOMERULAR FILTRATION RATE > 60.0 (>45); GLUCOSE, FASTING 103 MG/DL (70-100); PHOSPHORUS LEVEL 2.3 MG/DL (2.5-4.9); SODIUM LEVEL 142 MEQ/L (136-145)
[2021-04-17] MEDS ORDERED: ACETAMINOPHEN TAB 650MG DOSE (2X325MG) PO ONE (20:10)
[2021-04-17] MEDS: MONTELUKAST 10 MG TAB PO SCH (20:26)
[2021-04-17] MEDS: LINEZOLID 600MG TABLET (ZYVOX) PO SCH (20:26)
[2021-04-17] MEDS: KCL 20MEQ IN 100ML SWI (KRUN) 20 MEQ in IV 1 EA IV SCH ×4 (21:50→22:49)
[2021-04-18] VITALS (7 sets, daily range): BP systolic 99–125; BP diastolic 56–66
[2021-04-18] MEDS: IPRATROPIUM 0.5MG/ALBUTEROL 2.5MG INH SOL UD 3ML (DUONEB) NEB SCH ×7 (00:13→23:02)
[2021-04-18] MEDS: FUROSEMIDE 100MG/10ML VIAL (J1940) IV SCH ×3 (00:16→15:17)
[2021-04-18] MEDS: POLYVINYL ALCOHOL OPHTH SOLN 15 ML(LIQUITEARS) OU PRN (04:18)
[2021-04-18] MEDS: HumaLOG INSULIN (NovoLOG) PER UNIT SC SCH ×4 (05:24→18:00)
[2021-04-18] MEDS: METOPROLOL TART 25 MG TABLET PO SCH ×2 (05:24→13:17)
[2021-04-18] MEDS: SODIUM CHLORIDE 0.9% INJ 10 ML SYR IV SCH ×2 (05:25→18:29)
[2021-04-18 05:28] LABS: BASO % 0.4 % (0.0-1.0); EOS # 0.4 10^3/uL (0.0-0.5); EOS % 3.2 % (0.0-3.0); HEMATOCRIT 33.7 % (36.0-47.0); HEMOGLOBIN 8.8 g/dl (12.0-15.5); LYMPH # 1.1 10^3/uL (1.5-5.0); MEAN CORPUSCULAR HEMOGLOBIN 23.1 pg (27.0-33.0); MEAN CORPUSCULAR HGB CONC 26.1 g/dl (32.0-36.5); MEAN CORPUSCULAR VOLUME 88.5 fl (80.0-96.0); MONO # 0.8 10^3/uL (0.0-0.8); MONO % 7.4 % (2.0-8.0); NEUTROPHILS # 8.4 10^3/uL (1.5-8.5); NEUTROPHILS % 77.8 % (36.0-66.0); PLATELET COUNT, AUTOMATED 356 10^3/uL (150-450); RED BLOOD COUNT 3.81 10^6/uL (4.00-5.40); WHITE BLOOD COUNT 10.8 10^3/uL (4.0-10.0)
[2021-04-18 05:29] LABS: ABG HCO3 37.7 MEQ/L (22.0-26.0); ABG TOTAL CO2 39.7 MEQ/L (23.0-31.0)
[2021-04-18 05:32] LABS: ABG BASE EXCESS 10.6 (-2.0-2.0); ABG O2 SATURATION 95.6 % (95.0-99.0); ABG STANDARD HCO3 34.3 MEQ/L (22.0-26.0); ABG pH (ARTERIAL) 7.372 UNITS (7.350-7.450)
[2021-04-18 05:33] LABS: ABG PARTIAL PRESSURE CO2 66.4 mmHg (35.0-45.0)
[2021-04-18 05:56] LABS: ALBUMIN 2.7 GM/DL (3.2-5.2); ALT/SGPT 27 U/L (12-78); BILIRUBIN,TOTAL 1.1 MG/DL (0.2-1.0); BLOOD UREA NITROGEN 17 MG/DL (7-18); CALCIUM LEVEL 8.1 MG/DL (8.8-10.2); CARBON DIOXIDE LEVEL 40 MEQ/L (21-32); CHLORIDE LEVEL 95 MEQ/L (98-107); CHOLESTEROL LEVEL 190 MG/DL (< 200); CPK CREATINE PHOSPHOKINASE 190 U/L (26-192); CREATININE FOR GFR 0.74 MG/DL (0.55-1.30); GLOMERULAR FILTRATION RATE > 60.0 (>45); GLUCOSE, FASTING 105 MG/DL (70-100); LDH LACTATE DEHYDROGENASE 255 U/L (84-246); PHOSPHORUS LEVEL 3.3 MG/DL (2.5-4.9); SODIUM LEVEL 137 MEQ/L (136-145); TOTAL PROTEIN 7.7 GM/DL (6.4-8.2); TRIGLYCERIDES LEVEL 206 MG/DL (<150)
[2021-04-18] MEDS: HEPARIN SOD (PORCINE) 5000UNITS/ML 1ML VIAL/SYRINGE SQ SCH ×3 (06:27→22:20)
[2021-04-18] MEDS ORDERED: POTASSIUM CHLORIDE 10% LIQ 20 MEQ/15 ML UDC PO ONE (07:30)
[2021-04-18] MEDS: PANTOPRAZOLE 40MG VIAL (C9113 PER 1) IV SCH (09:22)
[2021-04-18] MEDS: NYSTATIN 100,000 UNITS/GM TOPICAL PWD 15 GM TOP SCH ×2 (09:22→20:26)
[2021-04-18] MEDS: LINEZOLID 600MG TABLET (ZYVOX) PO SCH ×2 (09:23→20:26)
[2021-04-18] MEDS: medroxyPROGESTERone 5MG TABLET PO SCH ×2 (09:23→20:26)
[2021-04-18] MEDS: acetaZOLAMIDE 250 MG TAB PO SCH ×4 (09:23→20:26)
[2021-04-18 11:22] LABS: MAGNESIUM LEVEL 2.4 MG/DL (1.8-2.4)
[2021-04-18] MEDS: MONTELUKAST 10 MG TAB PO SCH (20:26)
[2021-04-18] MEDS: ACETAMINOPHEN TAB 650MG DOSE (2X325MG) PO PRN (20:32)
[2021-04-19] VITALS (9 sets, daily range): BP systolic 99–143; BP diastolic 54–95
[2021-04-19] MEDS ORDERED: FUROSEMIDE 20MG/2ML VIAL (J1940) IV ONE (00:15)
[2021-04-19] MEDS: METOPROLOL TART 25 MG TABLET PO SCH ×4 (00:27→21:26)
[2021-04-19] MEDS: IPRATROPIUM 0.5MG/ALBUTEROL 2.5MG INH SOL UD 3ML (DUONEB) NEB SCH ×6 (02:38→23:20)
[2021-04-19] MEDS: HEPARIN SOD (PORCINE) 5000UNITS/ML 1ML VIAL/SYRINGE SQ SCH ×2 (06:29→14:49)
[2021-04-19] MEDS: SODIUM CHLORIDE 0.9% INJ 10 ML SYR IV SCH ×2 (06:29→18:02)
[2021-04-19 06:48] LABS: BASO # 0.1 10^3/uL (0.0-0.2); BASO % 0.6 % (0.0-1.0); EOS # 0.5 10^3/uL (0.0-0.5); EOS % 4.7 % (0.0-3.0); HEMATOCRIT 34.7 % (36.0-47.0); HEMOGLOBIN 9.1 g/dl (12.0-15.5); LYMPH # 1.1 10^3/uL (1.5-5.0); LYMPH % 11.2 % (24.0-44.0); MEAN CORPUSCULAR HEMOGLOBIN 23.2 pg (27.0-33.0); MEAN CORPUSCULAR HGB CONC 26.2 g/dl (32.0-36.5); MEAN CORPUSCULAR VOLUME 88.5 fl (80.0-96.0); MONO # 0.7 10^3/uL (0.0-0.8); NEUTROPHILS # 7.5 10^3/uL (1.5-8.5); PLATELET COUNT, AUTOMATED 386 10^3/uL (150-450); RED BLOOD COUNT 3.92 10^6/uL (4.00-5.40)
[2021-04-19 07:16] LABS: ALBUMIN 2.6 GM/DL (3.2-5.2); ALT/SGPT 26 U/L (12-78); BILIRUBIN,TOTAL 0.8 MG/DL (0.2-1.0); BLOOD UREA NITROGEN 22 MG/DL (7-18); CALCIUM LEVEL 8.3 MG/DL (8.8-10.2); CARBON DIOXIDE LEVEL 36 MEQ/L (21-32); CHLORIDE LEVEL 100 MEQ/L (98-107); CHOLESTEROL LEVEL 194 MG/DL (< 200); CPK CREATINE PHOSPHOKINASE 86 U/L (26-192); CREATININE FOR GFR 0.77 MG/DL (0.55-1.30); GLOMERULAR FILTRATION RATE > 60.0 (>45); GLUCOSE, FASTING 96 MG/DL (70-100); LDH LACTATE DEHYDROGENASE 261 U/L (84-246); NT-PRO BNP 2055 PG/ML (<125); PHOSPHORUS LEVEL 4.1 MG/DL (2.5-4.9); POTASSIUM SERUM 3.3 MEQ/L (3.5-5.1); SODIUM LEVEL 141 MEQ/L (136-145); TOTAL PROTEIN 7.1 GM/DL (6.4-8.2); TRIGLYCERIDES LEVEL 219 MG/DL (<150)
[2021-04-19] MEDS ORDERED: POTASSIUM CHLORIDE 10% LIQ 20 MEQ/15 ML UDC PO ONE (07:30)
[2021-04-19] MEDS: HumaLOG INSULIN (NovoLOG) PER UNIT SC SCH ×4 (07:30→21:00)
[2021-04-19] MEDS: FUROSEMIDE 100MG/10ML VIAL (J1940) IV SCH ×3 (07:52→15:58)
[2021-04-19] MEDS: POLYVINYL ALCOHOL OPHTH SOLN 15 ML(LIQUITEARS) OU PRN (07:52)
[2021-04-19 08:23] LABS: ABG BASE EXCESS 6.2 (-2.0-2.0); ABG HCO3 33.2 MEQ/L (22.0-26.0); ABG O2 SATURATION 92.5 % (95.0-99.0); ABG PARTIAL PRESSURE O2 67.3 mmHg (75.0-100.0); ABG TOTAL CO2 35.1 MEQ/L (23.0-31.0); ABG pH (ARTERIAL) 7.347 UNITS (7.350-7.450)
[2021-04-19 08:28] LABS: ABG PARTIAL PRESSURE CO2 61.9 mmHg (35.0-45.0)
[2021-04-19] MEDS: LINEZOLID 600MG TABLET (ZYVOX) PO SCH ×2 (08:41→21:26)
[2021-04-19] MEDS: PANTOPRAZOLE 40MG VIAL (C9113 PER 1) IV SCH (08:41)
[2021-04-19] MEDS: medroxyPROGESTERone 5MG TABLET PO SCH ×2 (08:41→21:26)
[2021-04-19] MEDS: NYSTATIN 100,000 UNITS/GM TOPICAL PWD 15 GM TOP SCH ×2 (08:42→21:28)
[2021-04-19] MEDS: acetaZOLAMIDE 250 MG TAB PO SCH (08:42)
[2021-04-19 18:24] LABS: BLOOD UREA NITROGEN 22 MG/DL (7-18); CALCIUM LEVEL 8.3 MG/DL (8.8-10.2); CARBON DIOXIDE LEVEL 37 MEQ/L (21-32); CHLORIDE LEVEL 99 MEQ/L (98-107); CREATININE FOR GFR 0.77 MG/DL (0.55-1.30); GLOMERULAR FILTRATION RATE > 60.0 (>45); GLUCOSE, FASTING 95 MG/DL (70-100); POTASSIUM SERUM 3.4 MEQ/L (3.5-5.1); SODIUM LEVEL 142 MEQ/L (136-145)
[2021-04-19] MEDS: MONTELUKAST 10 MG TAB PO SCH (21:26)
[2021-04-20] VITALS (7 sets, daily range): BP systolic 102–126; BP diastolic 52–69
[2021-04-20] MEDS: FUROSEMIDE 100MG/10ML VIAL (J1940) IV SCH ×3 (00:15→15:40)
[2021-04-20] MEDS: HEPARIN SOD (PORCINE) 5000UNITS/ML 1ML VIAL/SYRINGE SQ SCH ×4 (00:15→22:21)
[2021-04-20] MEDS: IPRATROPIUM 0.5MG/ALBUTEROL 2.5MG INH SOL UD 3ML (DUONEB) NEB SCH ×6 (03:54→23:52)
[2021-04-20] MEDS: METOPROLOL TART 25 MG TABLET PO SCH ×3 (06:03→22:24)
[2021-04-20] MEDS: SODIUM CHLORIDE 0.9% INJ 10 ML SYR IV SCH ×2 (06:03→17:55)
[2021-04-20 06:22] LABS: BASO % 0.4 % (0.0-1.0); EOS # 0.4 10^3/uL (0.0-0.5); EOS % 3.5 % (0.0-3.0); HEMATOCRIT 34.6 % (36.0-47.0); HEMOGLOBIN 9.2 g/dl (12.0-15.5); LYMPH % 9.2 % (24.0-44.0); MEAN CORPUSCULAR HEMOGLOBIN 23.5 pg (27.0-33.0); MEAN CORPUSCULAR HGB CONC 26.6 g/dl (32.0-36.5); MEAN CORPUSCULAR VOLUME 88.3 fl (80.0-96.0); MONO # 0.7 10^3/uL (0.0-0.8); MONO % 6.8 % (2.0-8.0); NEUTROPHILS # 8.6 10^3/uL (1.5-8.5); NEUTROPHILS % 78.7 % (36.0-66.0); PLATELET COUNT, AUTOMATED 399 10^3/uL (150-450); RED BLOOD COUNT 3.92 10^6/uL (4.00-5.40); WHITE BLOOD COUNT 10.9 10^3/uL (4.0-10.0)
[2021-04-20 06:48] LABS: ALBUMIN 2.8 GM/DL (3.2-5.2); ALT/SGPT 25 U/L (12-78); BILIRUBIN,TOTAL 0.8 MG/DL (0.2-1.0); BLOOD UREA NITROGEN 25 MG/DL (7-18); CALCIUM LEVEL 7.9 MG/DL (8.8-10.2); CARBON DIOXIDE LEVEL 37 MEQ/L (21-32); CHLORIDE LEVEL 99 MEQ/L (98-107); CHOLESTEROL LEVEL 185 MG/DL (< 200); CPK CREATINE PHOSPHOKINASE 61 U/L (26-192); CREATININE FOR GFR 0.73 MG/DL (0.55-1.30); GLOMERULAR FILTRATION RATE > 60.0 (>45); GLUCOSE, FASTING 107 MG/DL (70-100); LDH LACTATE DEHYDROGENASE 293 U/L (84-246); PHOSPHORUS LEVEL 3.9 MG/DL (2.5-4.9); POTASSIUM SERUM 3.4 MEQ/L (3.5-5.1); SODIUM LEVEL 139 MEQ/L (136-145); TOTAL PROTEIN 7.2 GM/DL (6.4-8.2); TRIGLYCERIDES LEVEL 242 MG/DL (<150)
[2021-04-20] MEDS ORDERED: POTASSIUM CHLORIDE 10MEQ SR TABLET PO ONE ×2 (07:15→17:35)
[2021-04-20] MEDS: PANTOPRAZOLE 40MG TAB (PROTONIX) PO SCH (08:26)
[2021-04-20] MEDS: medroxyPROGESTERone 5MG TABLET PO SCH ×2 (08:26→22:22)
[2021-04-20] MEDS: LINEZOLID 600MG TABLET (ZYVOX) PO SCH ×2 (08:26→22:22)
[2021-04-20] MEDS: NYSTATIN 100,000 UNITS/GM TOPICAL PWD 15 GM TOP SCH ×2 (08:27→22:25)
[2021-04-20] MEDS: HumaLOG INSULIN (NovoLOG) PER UNIT SC SCH ×4 (08:29→21:00)
[2021-04-20 15:26] LABS: BLOOD UREA NITROGEN 24 MG/DL (7-18); CALCIUM LEVEL 8.6 MG/DL (8.8-10.2); CARBON DIOXIDE LEVEL 36 MEQ/L (21-32); CHLORIDE LEVEL 99 MEQ/L (98-107); CREATININE FOR GFR 0.76 MG/DL (0.55-1.30); GLOMERULAR FILTRATION RATE > 60.0 (>45); GLUCOSE, FASTING 118 MG/DL (70-100); POTASSIUM SERUM 3.3 MEQ/L (3.5-5.1); SODIUM LEVEL 138 MEQ/L (136-145)
[2021-04-20] MEDS: MONTELUKAST 10 MG TAB PO SCH (22:22)
[2021-04-21] VITALS (7 sets, daily range): BP systolic 106–135; BP diastolic 54–67
[2021-04-21] MEDS: FUROSEMIDE 100MG/10ML VIAL (J1940) IV SCH ×3 (00:12→16:00)
[2021-04-21] MEDS: IPRATROPIUM 0.5MG/ALBUTEROL 2.5MG INH SOL UD 3ML (DUONEB) NEB SCH ×6 (02:55→23:06)
[2021-04-21 05:40] LABS: BASO # 0.1 10^3/uL (0.0-0.2); BASO % 0.5 % (0.0-1.0); EOS # 0.4 10^3/uL (0.0-0.5); EOS % 3.3 % (0.0-3.0); HEMATOCRIT 33.9 % (36.0-47.0); LYMPH # 1.3 10^3/uL (1.5-5.0); LYMPH % 9.7 % (24.0-44.0); MEAN CORPUSCULAR HEMOGLOBIN 23.1 pg (27.0-33.0); MEAN CORPUSCULAR HGB CONC 26.5 g/dl (32.0-36.5); MEAN CORPUSCULAR VOLUME 87.1 fl (80.0-96.0); MONO # 0.9 10^3/uL (0.0-0.8); MONO % 6.6 % (2.0-8.0); NEUTROPHILS # 10.1 10^3/uL (1.5-8.5); NEUTROPHILS % 78.1 % (36.0-66.0); PLATELET COUNT, AUTOMATED 389 10^3/uL (150-450); RED BLOOD COUNT 3.89 10^6/uL (4.00-5.40)
[2021-04-21] MEDS: SODIUM CHLORIDE 0.9% INJ 10 ML SYR IV SCH ×2 (05:40→17:50)
[2021-04-21] MEDS: METOPROLOL TART 25 MG TABLET PO SCH ×3 (05:43→22:03)
[2021-04-21] MEDS: HEPARIN SOD (PORCINE) 5000UNITS/ML 1ML VIAL/SYRINGE SQ SCH ×3 (05:57→22:03)
[2021-04-21 06:11] LABS: ALBUMIN 2.8 GM/DL (3.2-5.2); ALT/SGPT 23 U/L (12-78); BILIRUBIN,TOTAL 0.8 MG/DL (0.2-1.0); BLOOD UREA NITROGEN 23 MG/DL (7-18); CALCIUM LEVEL 8.2 MG/DL (8.8-10.2); CARBON DIOXIDE LEVEL 38 MEQ/L (21-32); CHLORIDE LEVEL 101 MEQ/L (98-107); CHOLESTEROL LEVEL 168 MG/DL (< 200); CPK CREATINE PHOSPHOKINASE 42 U/L (26-192); CREATININE FOR GFR 0.79 MG/DL (0.55-1.30); GLOMERULAR FILTRATION RATE > 60.0 (>45); GLUCOSE, FASTING 109 MG/DL (70-100); LDH LACTATE DEHYDROGENASE 246 U/L (84-246); PHOSPHORUS LEVEL 3.1 MG/DL (2.5-4.9); POTASSIUM SERUM 3.5 MEQ/L (3.5-5.1); SODIUM LEVEL 142 MEQ/L (136-145); TOTAL PROTEIN 7.7 GM/DL (6.4-8.2); TRIGLYCERIDES LEVEL 226 MG/DL (<150)
[2021-04-21] MEDS ORDERED: POTASSIUM CHLORIDE 10MEQ SR TABLET PO ONE ×2 (07:30→17:15)
[2021-04-21] MEDS: HumaLOG INSULIN (NovoLOG) PER UNIT SC SCH ×4 (07:30→20:20)
[2021-04-21] MEDS: PANTOPRAZOLE 40MG TAB (PROTONIX) PO SCH (08:49)
[2021-04-21] MEDS: LINEZOLID 600MG TABLET (ZYVOX) PO SCH ×2 (08:49→20:19)
[2021-04-21] MEDS: NYSTATIN 100,000 UNITS/GM TOPICAL PWD 15 GM TOP SCH ×2 (08:50→20:20)
[2021-04-21] MEDS: medroxyPROGESTERone 5MG TABLET PO SCH ×2 (08:50→20:20)
[2021-04-21] MEDS: ACETAMINOPHEN TAB 650MG DOSE (2X325MG) PO PRN (10:19)
[2021-04-21 16:52] LABS: BLOOD UREA NITROGEN 26 MG/DL (7-18); CALCIUM LEVEL 8.5 MG/DL (8.8-10.2); CARBON DIOXIDE LEVEL 36 MEQ/L (21-32); CHLORIDE LEVEL 100 MEQ/L (98-107); CREATININE FOR GFR 0.79 MG/DL (0.55-1.30); GLOMERULAR FILTRATION RATE > 60.0 (>45); GLUCOSE, FASTING 138 MG/DL (70-100); MAGNESIUM LEVEL 2.3 MG/DL (1.8-2.4); POTASSIUM SERUM 3.3 MEQ/L (3.5-5.1); SODIUM LEVEL 139 MEQ/L (136-145)
[2021-04-21] MEDS: MONTELUKAST 10 MG TAB PO SCH (20:19)
[2021-04-22] VITALS: BP 158/68
[2021-04-22] MEDS: FUROSEMIDE 100MG/10ML VIAL (J1940) IV SCH ×3 (00:11→16:18)
[2021-04-22] MEDS ORDERED: RAMELTEON 8 MG TAB (ROZEREM) PO ONE (00:30)
[2021-04-22] MEDS ORDERED: ONDANSETRON 4MG/2ML VIAL IV PRN (03:50)
[2021-04-22] MEDS: SODIUM CHLORIDE 0.9% INJ 10 ML SYR IV SCH ×2 (03:56→17:52)
[2021-04-22 04:00] VITALS: BP 138/64
[2021-04-22 04:16] LABS: HEMATOCRIT 35.8 % (36.0-47.0); HEMOGLOBIN 9.3 g/dl (12.0-15.5); MEAN CORPUSCULAR HEMOGLOBIN 22.8 pg (27.0-33.0); MEAN CORPUSCULAR VOLUME 87.7 fl (80.0-96.0); PLATELET COUNT, AUTOMATED 439 10^3/uL (150-450); RED BLOOD COUNT 4.08 10^6/uL (4.00-5.40); WHITE BLOOD COUNT 14.1 10^3/uL (4.0-10.0)
[2021-04-22 04:51] LABS: ALT/SGPT 25 U/L (12-78); BILIRUBIN,TOTAL 0.7 MG/DL (0.2-1.0); BLOOD UREA NITROGEN 24 MG/DL (7-18); CALCIUM LEVEL 8.2 MG/DL (8.8-10.2); CARBON DIOXIDE LEVEL 37 MEQ/L (21-32); CHLORIDE LEVEL 102 MEQ/L (98-107); CHOLESTEROL LEVEL 189 MG/DL (< 200); CPK CREATINE PHOSPHOKINASE 50 U/L (26-192); CREATININE FOR GFR 0.73 MG/DL (0.55-1.30); GLOMERULAR FILTRATION RATE > 60.0 (>45); GLUCOSE, FASTING 111 MG/DL (70-100); LDH LACTATE DEHYDROGENASE 416 U/L (84-246); MAGNESIUM LEVEL 2.1 MG/DL (1.8-2.4); PHOSPHORUS LEVEL 2.6 MG/DL (2.5-4.9); POTASSIUM SERUM 3.8 MEQ/L (3.5-5.1); SODIUM LEVEL 141 MEQ/L (136-145); TOTAL PROTEIN 7.5 GM/DL (6.4-8.2); TRIGLYCERIDES LEVEL 227 MG/DL (<150)
[2021-04-22] MEDS: IPRATROPIUM 0.5MG/ALBUTEROL 2.5MG INH SOL UD 3ML (DUONEB) NEB SCH ×6 (05:33→23:51)
[2021-04-22] MEDS: HEPARIN SOD (PORCINE) 5000UNITS/ML 1ML VIAL/SYRINGE SQ SCH (06:15)
[2021-04-22] MEDS: METOPROLOL TART 25 MG TABLET PO SCH ×3 (06:15→21:07)
[2021-04-22] MEDS: HumaLOG INSULIN (NovoLOG) PER UNIT SC SCH ×4 (07:56→21:00)
[2021-04-22 08:00] VITALS: BP 116/56
[2021-04-22] MEDS: NYSTATIN 100,000 UNITS/GM TOPICAL PWD 15 GM TOP SCH ×2 (08:45→21:09)
[2021-04-22] MEDS: POLYVINYL ALCOHOL OPHTH SOLN 15 ML(LIQUITEARS) OU PRN (08:45)
[2021-04-22] MEDS: LINEZOLID 600MG TABLET (ZYVOX) PO SCH ×2 (08:46→21:07)
[2021-04-22] MEDS: medroxyPROGESTERone 5MG TABLET PO SCH ×2 (08:46→21:07)
[2021-04-22] MEDS: PANTOPRAZOLE 40MG TAB (PROTONIX) PO SCH (08:46)
[2021-04-22 09:12] LABS: ABG BASE EXCESS 4.5 (-2.0-2.0); ABG O2 SATURATION 94.5 % (95.0-99.0); ABG PARTIAL PRESSURE O2 76.1 mmHg (75.0-100.0); ABG STANDARD HCO3 28.4 MEQ/L (22.0-26.0); ABG pH (ARTERIAL) 7.317 UNITS (7.350-7.450)
[2021-04-22] MEDS ORDERED: metOLazone 5 MG TAB PO ONE (10:00)
[2021-04-22 12:00] VITALS: BP 114/79
[2021-04-22 14:01] VITALS: BP 118/62
[2021-04-22] MEDS: RIVAROXABAN 15 MG TAB (XARELTO) PO SCH (17:52)
[2021-04-22] MEDS: MONTELUKAST 10 MG TAB PO SCH (21:07)
[2021-04-22 22:00] VITALS: BP 125/84
[2021-04-23] MEDS: IPRATROPIUM 0.5MG/ALBUTEROL 2.5MG INH SOL UD 3ML (DUONEB) NEB SCH ×5 (02:00→19:16)
[2021-04-23] MEDS: METOPROLOL TART 25 MG TABLET PO SCH ×3 (05:57→21:08)
[2021-04-23] MEDS: SODIUM CHLORIDE 0.9% INJ 10 ML SYR IV SCH ×2 (05:58→17:58)
[2021-04-23 06:00] VITALS: BP 123/86
[2021-04-23 06:32] LABS: HEMATOCRIT 37.3 % (36.0-47.0); HEMOGLOBIN 9.7 g/dl (12.0-15.5); MEAN CORPUSCULAR HEMOGLOBIN 22.8 pg (27.0-33.0); MEAN CORPUSCULAR VOLUME 87.8 fl (80.0-96.0); PLATELET COUNT, AUTOMATED 432 10^3/uL (150-450); RED BLOOD COUNT 4.25 10^6/uL (4.00-5.40); WHITE BLOOD COUNT 11.5 10^3/uL (4.0-10.0)
[2021-04-23 07:00] LABS: ALBUMIN 3.1 GM/DL (3.2-5.2); ALT/SGPT 27 U/L (12-78); BILIRUBIN,TOTAL 0.9 MG/DL (0.2-1.0); BLOOD UREA NITROGEN 24 MG/DL (7-18); CALCIUM LEVEL 8.9 MG/DL (8.8-10.2); CARBON DIOXIDE LEVEL 39 MEQ/L (21-32); CHLORIDE LEVEL 98 MEQ/L (98-107); CHOLESTEROL LEVEL 202 MG/DL (< 200); CPK CREATINE PHOSPHOKINASE 58 U/L (26-192); CREATININE FOR GFR 0.86 MG/DL (0.55-1.30); GLOMERULAR FILTRATION RATE > 60.0 (>45); GLUCOSE, FASTING 107 MG/DL (70-100); LDH LACTATE DEHYDROGENASE 545 U/L (84-246); PHOSPHORUS LEVEL 4.4 MG/DL (2.5-4.9); POTASSIUM SERUM 3.9 MEQ/L (3.5-5.1); SODIUM LEVEL 141 MEQ/L (136-145); TOTAL PROTEIN 8.3 GM/DL (6.4-8.2); TRIGLYCERIDES LEVEL 225 MG/DL (<150)
[2021-04-23] MEDS: HumaLOG INSULIN (NovoLOG) PER UNIT SC SCH ×4 (07:30→21:00)
[2021-04-23] MEDS: LINEZOLID 600MG TABLET (ZYVOX) PO SCH ×2 (08:07→21:07)
[2021-04-23] MEDS: RIVAROXABAN 15 MG TAB (XARELTO) PO SCH ×2 (08:07→17:58)
[2021-04-23] MEDS: FUROSEMIDE 100MG/10ML VIAL (J1940) IV SCH ×4 (08:07→23:56)
[2021-04-23] MEDS: medroxyPROGESTERone 5MG TABLET PO SCH ×2 (08:07→21:07)
[2021-04-23] MEDS: PANTOPRAZOLE 40MG TAB (PROTONIX) PO SCH (08:07)
[2021-04-23] MEDS: NYSTATIN 100,000 UNITS/GM TOPICAL PWD 15 GM TOP SCH ×2 (11:53→21:08)
[2021-04-23 14:00] VITALS: BP 105/60
[2021-04-23] MEDS: MONTELUKAST 10 MG TAB PO SCH (21:07)
[2021-04-23] MEDS: ACETAMINOPHEN TAB 650MG DOSE (2X325MG) PO PRN (21:08)
[2021-04-23 22:00] VITALS: BP 129/67
[2021-04-24] MEDS: IPRATROPIUM 0.5MG/ALBUTEROL 2.5MG INH SOL UD 3ML (DUONEB) NEB SCH ×7 (00:26→23:15)
[2021-04-24] MEDS: SODIUM CHLORIDE 0.9% INJ 10 ML SYR IV SCH ×2 (05:45→17:35)
[2021-04-24] MEDS: METOPROLOL TART 25 MG TABLET PO SCH ×3 (05:46→21:44)
[2021-04-24 05:55] LABS: HEMATOCRIT 37.4 % (36.0-47.0); HEMOGLOBIN 9.9 g/dl (12.0-15.5); MEAN CORPUSCULAR HEMOGLOBIN 22.8 pg (27.0-33.0); MEAN CORPUSCULAR HGB CONC 26.5 g/dl (32.0-36.5); PLATELET COUNT, AUTOMATED 493 10^3/uL (150-450); RED BLOOD COUNT 4.35 10^6/uL (4.00-5.40); WHITE BLOOD COUNT 11.8 10^3/uL (4.0-10.0)
[2021-04-24 06:00] VITALS: BP 111/68
[2021-04-24 06:31] LABS: ALBUMIN 3.2 GM/DL (3.2-5.2); ALT/SGPT 27 U/L (12-78); BILIRUBIN,TOTAL 0.8 MG/DL (0.2-1.0); BLOOD UREA NITROGEN 27 MG/DL (7-18); CALCIUM LEVEL 8.7 MG/DL (8.8-10.2); CARBON DIOXIDE LEVEL 39 MEQ/L (21-32); CHLORIDE LEVEL 97 MEQ/L (98-107); CHOLESTEROL LEVEL 191 MG/DL (< 200); CPK CREATINE PHOSPHOKINASE 38 U/L (26-192); CREATININE FOR GFR 0.93 MG/DL (0.55-1.30); GLOMERULAR FILTRATION RATE > 60.0 (>45); GLUCOSE, FASTING 151 MG/DL (70-100); LDH LACTATE DEHYDROGENASE 308 U/L (84-246); PHOSPHORUS LEVEL 2.2 MG/DL (2.5-4.9); POTASSIUM SERUM 3.6 MEQ/L (3.5-5.1); SODIUM LEVEL 141 MEQ/L (136-145); TRIGLYCERIDES LEVEL 205 MG/DL (<150)
[2021-04-24] MEDS ORDERED: POTASSIUM CHLORIDE 10MEQ SR TABLET PO ONE ×2 (08:00→17:00)
[2021-04-24] MEDS: medroxyPROGESTERone 5MG TABLET PO SCH ×2 (08:10→21:43)
[2021-04-24] MEDS: FUROSEMIDE 100MG/10ML VIAL (J1940) IV SCH ×2 (08:10→16:35)
[2021-04-24] MEDS: HumaLOG INSULIN (NovoLOG) PER UNIT SC SCH ×4 (08:10→19:48)
[2021-04-24] MEDS: RIVAROXABAN 15 MG TAB (XARELTO) PO SCH ×2 (08:11→17:35)
[2021-04-24] MEDS: PANTOPRAZOLE 40MG TAB (PROTONIX) PO SCH (08:11)
[2021-04-24] MEDS: LINEZOLID 600MG TABLET (ZYVOX) PO SCH ×2 (08:11→21:43)
[2021-04-24] MEDS: NYSTATIN 100,000 UNITS/GM TOPICAL PWD 15 GM TOP SCH ×2 (08:12→21:44)
[2021-04-24 14:00] VITALS: BP 113/68
[2021-04-24 15:05] LABS: BLOOD UREA NITROGEN 25 MG/DL (7-18); CALCIUM LEVEL 8.4 MG/DL (8.8-10.2); CARBON DIOXIDE LEVEL 40 MEQ/L (21-32); CHLORIDE LEVEL 96 MEQ/L (98-107); CREATININE FOR GFR 0.94 MG/DL (0.55-1.30); GLOMERULAR FILTRATION RATE > 60.0 (>45); GLUCOSE, FASTING 161 MG/DL (70-100); MAGNESIUM LEVEL 1.8 MG/DL (1.8-2.4); POTASSIUM SERUM 3.3 MEQ/L (3.5-5.1); SODIUM LEVEL 142 MEQ/L (136-145)
[2021-04-24] MEDS ORDERED: MAG SULF 1GM/100ML (MAG RUN) 1 GM in IV 1 EA IV ONE (17:00)
[2021-04-24] MEDS: RAMELTEON 8 MG TAB (ROZEREM) PO SCH (21:43)
[2021-04-24] MEDS: MONTELUKAST 10 MG TAB PO SCH (21:43)
[2021-04-24] MEDS: ACETAMINOPHEN TAB 650MG DOSE (2X325MG) PO PRN (21:48)
[2021-04-24 22:00] VITALS: BP 132/64
[2021-04-25] MEDS: FUROSEMIDE 100MG/10ML VIAL (J1940) IV SCH ×5 (00:01→23:57)
[2021-04-25] MEDS: SODIUM CHLORIDE 0.9% INJ 10 ML SYR IV PRN ×2 (00:02→23:49)
[2021-04-25] MEDS: IPRATROPIUM 0.5MG/ALBUTEROL 2.5MG INH SOL UD 3ML (DUONEB) NEB SCH ×6 (03:06→23:12)
[2021-04-25] MEDS: METOPROLOL TART 25 MG TABLET PO SCH ×3 (05:18→21:31)
[2021-04-25] MEDS: SODIUM CHLORIDE 0.9% INJ 10 ML SYR IV SCH ×2 (05:18→18:27)
[2021-04-25 05:44] LABS: HEMATOCRIT 36.9 % (36.0-47.0); HEMOGLOBIN 9.9 g/dl (12.0-15.5); MEAN CORPUSCULAR HGB CONC 26.8 g/dl (32.0-36.5); MEAN CORPUSCULAR VOLUME 85.8 fl (80.0-96.0); PLATELET COUNT, AUTOMATED 507 10^3/uL (150-450); WHITE BLOOD COUNT 11.3 10^3/uL (4.0-10.0)
[2021-04-25 06:00] VITALS: BP 131/65
[2021-04-25 06:32] LABS: ALBUMIN 3.3 GM/DL (3.2-5.2); ALT/SGPT 24 U/L (12-78); BILIRUBIN,TOTAL 0.9 MG/DL (0.2-1.0); BLOOD UREA NITROGEN 27 MG/DL (7-18); CALCIUM LEVEL 8.9 MG/DL (8.8-10.2); CARBON DIOXIDE LEVEL 41 MEQ/L (21-32); CHLORIDE LEVEL 95 MEQ/L (98-107); CHOLESTEROL LEVEL 203 MG/DL (< 200); CPK CREATINE PHOSPHOKINASE 31 U/L (26-192); CREATININE FOR GFR 0.98 MG/DL (0.55-1.30); GLOMERULAR FILTRATION RATE > 60.0 (>45); GLUCOSE, FASTING 129 MG/DL (70-100); LDH LACTATE DEHYDROGENASE 264 U/L (84-246); PHOSPHORUS LEVEL 2.9 MG/DL (2.5-4.9); POTASSIUM SERUM 3.3 MEQ/L (3.5-5.1); SODIUM LEVEL 139 MEQ/L (136-145); TOTAL PROTEIN 7.9 GM/DL (6.4-8.2); TRIGLYCERIDES LEVEL 217 MG/DL (<150)
[2021-04-25 07:30] VITALS: BP 112/72
[2021-04-25] MEDS ORDERED: POTASSIUM CHLORIDE 10MEQ SR TABLET PO ONE (07:30)
[2021-04-25] MEDS: HumaLOG INSULIN (NovoLOG) PER UNIT SC SCH ×4 (08:14→20:35)
[2021-04-25] MEDS: medroxyPROGESTERone 5MG TABLET PO SCH ×2 (08:15→21:27)
[2021-04-25] MEDS: RIVAROXABAN 15 MG TAB (XARELTO) PO SCH ×2 (08:16→18:27)
[2021-04-25] MEDS: LINEZOLID 600MG TABLET (ZYVOX) PO SCH ×2 (08:16→21:27)
[2021-04-25] MEDS: PANTOPRAZOLE 40MG TAB (PROTONIX) PO SCH (08:16)
[2021-04-25] MEDS: NYSTATIN 100,000 UNITS/GM TOPICAL PWD 15 GM TOP SCH ×2 (08:17→21:27)
[2021-04-25 13:55] VITALS: BP 113/75
[2021-04-25] MEDS: MONTELUKAST 10 MG TAB PO SCH (21:27)
[2021-04-25] MEDS: RAMELTEON 8 MG TAB (ROZEREM) PO SCH (21:27)
[2021-04-25] MEDS: ACETAMINOPHEN TAB 650MG DOSE (2X325MG) PO PRN (21:31)
[2021-04-25 22:00] VITALS: BP 152/85
[2021-04-25 22:10] VITALS: O2SAT 94
[2021-04-26] MEDS: IPRATROPIUM 0.5MG/ALBUTEROL 2.5MG INH SOL UD 3ML (DUONEB) NEB SCH ×6 (03:48→23:07)
[2021-04-26] MEDS: SODIUM CHLORIDE 0.9% INJ 10 ML SYR IV SCH ×2 (05:23→17:24)
[2021-04-26] MEDS: METOPROLOL TART 25 MG TABLET PO SCH ×3 (05:23→22:02)
[2021-04-26 05:54] LABS: HEMATOCRIT 35.3 % (36.0-47.0); HEMOGLOBIN 9.4 g/dl (12.0-15.5); MEAN CORPUSCULAR HEMOGLOBIN 22.6 pg (27.0-33.0); MEAN CORPUSCULAR HGB CONC 26.6 g/dl (32.0-36.5); MEAN CORPUSCULAR VOLUME 84.9 fl (80.0-96.0); PLATELET COUNT, AUTOMATED 483 10^3/uL (150-450); RED BLOOD COUNT 4.16 10^6/uL (4.00-5.40); WHITE BLOOD COUNT 10.9 10^3/uL (4.0-10.0)
[2021-04-26 06:00] VITALS: BP 127/72
[2021-04-26 06:14] LABS: ALBUMIN 3.1 GM/DL (3.2-5.2); ALT/SGPT 22 U/L (12-78); BILIRUBIN,TOTAL 0.8 MG/DL (0.2-1.0); BLOOD UREA NITROGEN 29 MG/DL (7-18); CALCIUM LEVEL 8.6 MG/DL (8.8-10.2); CARBON DIOXIDE LEVEL 38 MEQ/L (21-32); CHLORIDE LEVEL 96 MEQ/L (98-107); CHOLESTEROL LEVEL 180 MG/DL (< 200); CPK CREATINE PHOSPHOKINASE 28 U/L (26-192); CREATININE FOR GFR 0.96 MG/DL (0.55-1.30); GLOMERULAR FILTRATION RATE > 60.0 (>45); GLUCOSE, FASTING 119 MG/DL (70-100); LDH LACTATE DEHYDROGENASE 237 U/L (84-246); PHOSPHORUS LEVEL 3.2 MG/DL (2.5-4.9); POTASSIUM SERUM 3.3 MEQ/L (3.5-5.1); SODIUM LEVEL 140 MEQ/L (136-145); TOTAL PROTEIN 7.4 GM/DL (6.4-8.2); TRIGLYCERIDES LEVEL 195 MG/DL (<150)
[2021-04-26] MEDS: FUROSEMIDE 100MG/10ML VIAL (J1940) IV SCH ×3 (08:00→16:01)
[2021-04-26] MEDS: PANTOPRAZOLE 40MG TAB (PROTONIX) PO SCH (08:58)
[2021-04-26] MEDS: POTASSIUM CHLORIDE 10MEQ SR TABLET PO SCH ×2 (08:58→10:28)
[2021-04-26] MEDS: RIVAROXABAN 15 MG TAB (XARELTO) PO SCH ×2 (08:58→17:24)
[2021-04-26] MEDS: HumaLOG INSULIN (NovoLOG) PER UNIT SC SCH ×4 (08:58→21:00)
[2021-04-26] MEDS: NYSTATIN 100,000 UNITS/GM TOPICAL PWD 15 GM TOP SCH ×2 (09:11→22:02)
[2021-04-26] MEDS: medroxyPROGESTERone 5MG TABLET PO SCH ×2 (09:23→22:01)
[2021-04-26 09:50] VITALS: O2SAT 97
[2021-04-26 14:00] VITALS: BP 109/65
[2021-04-26 21:00] VITALS: O2SAT 95
[2021-04-26 22:00] VITALS: BP 130/81
[2021-04-26] MEDS: MONTELUKAST 10 MG TAB PO SCH (22:02)
[2021-04-26] MEDS: RAMELTEON 8 MG TAB (ROZEREM) PO SCH (22:02)
[2021-04-26] MEDS: ACETAMINOPHEN TAB 650MG DOSE (2X325MG) PO PRN (22:03)
[2021-04-27] MEDS: FUROSEMIDE 100MG/10ML VIAL (J1940) IV SCH ×3 (00:34→16:00)
[2021-04-27] MEDS: IPRATROPIUM 0.5MG/ALBUTEROL 2.5MG INH SOL UD 3ML (DUONEB) NEB SCH ×6 (03:33→23:14)
[2021-04-27 06:00] VITALS: BP_DIAS 68
[2021-04-27] MEDS: SODIUM CHLORIDE 0.9% INJ 10 ML SYR IV SCH ×2 (06:35→16:47)
[2021-04-27] MEDS: METOPROLOL TART 25 MG TABLET PO SCH ×3 (06:37→21:00)
[2021-04-27 07:11] LABS: HEMOGLOBIN 9.4 g/dl (12.0-15.5); MEAN CORPUSCULAR HEMOGLOBIN 22.8 pg (27.0-33.0); MEAN CORPUSCULAR HGB CONC 26.9 g/dl (32.0-36.5); PLATELET COUNT, AUTOMATED 466 10^3/uL (150-450); RED BLOOD COUNT 4.12 10^6/uL (4.00-5.40); WHITE BLOOD COUNT 9.9 10^3/uL (4.0-10.0)
[2021-04-27 07:33] LABS: ALBUMIN 3.2 GM/DL (3.2-5.2); ALT/SGPT 22 U/L (12-78); BILIRUBIN,TOTAL 0.8 MG/DL (0.2-1.0); BLOOD UREA NITROGEN 25 MG/DL (7-18); CALCIUM LEVEL 8.6 MG/DL (8.8-10.2); CARBON DIOXIDE LEVEL 39 MEQ/L (21-32); CHLORIDE LEVEL 97 MEQ/L (98-107); CREATININE FOR GFR 0.91 MG/DL (0.55-1.30); GLOMERULAR FILTRATION RATE > 60.0 (>45); GLUCOSE, FASTING 123 MG/DL (70-100); MAGNESIUM LEVEL 1.9 MG/DL (1.8-2.4); POTASSIUM SERUM 3.4 MEQ/L (3.5-5.1); SODIUM LEVEL 141 MEQ/L (136-145); TOTAL PROTEIN 7.6 GM/DL (6.4-8.2)
[2021-04-27] MEDS: RIVAROXABAN 15 MG TAB (XARELTO) PO SCH ×2 (08:04→16:46)
[2021-04-27] MEDS: PANTOPRAZOLE 40MG TAB (PROTONIX) PO SCH (08:04)
[2021-04-27] MEDS: HumaLOG INSULIN (NovoLOG) PER UNIT SC SCH ×4 (08:07→20:52)
[2021-04-27] MEDS: medroxyPROGESTERone 5MG TABLET PO SCH ×2 (08:14→20:57)
[2021-04-27] MEDS: NYSTATIN 100,000 UNITS/GM TOPICAL PWD 15 GM TOP SCH ×2 (08:16→20:56)
[2021-04-27] MEDS: ACETAMINOPHEN TAB 650MG DOSE (2X325MG) PO PRN ×2 (08:16→20:56)
[2021-04-27] MEDS: POTASSIUM CHLORIDE 10MEQ SR TABLET PO SCH ×2 (09:50→12:18)
[2021-04-27 14:00] VITALS: BP 106/61; O2SAT 93
[2021-04-27 19:30] VITALS: BP 130/72
[2021-04-27] MEDS: MONTELUKAST 10 MG TAB PO SCH (20:56)
[2021-04-27] MEDS: RAMELTEON 8 MG TAB (ROZEREM) PO SCH (20:56)
[2021-04-28] VITALS (11 sets, daily range): BP systolic 110–138; BP diastolic 64–83; O2SAT 90–98
[2021-04-28] MEDS: FUROSEMIDE 100MG/10ML VIAL (J1940) IV SCH ×3 (00:13→16:18)
[2021-04-28] MEDS: SODIUM CHLORIDE 0.9% INJ 10 ML SYR IV PRN ×2 (00:38→05:45)
[2021-04-28] MEDS: IPRATROPIUM 0.5MG/ALBUTEROL 2.5MG INH SOL UD 3ML (DUONEB) NEB SCH ×6 (04:00→23:23)
[2021-04-28] MEDS: SODIUM CHLORIDE 0.9% INJ 10 ML SYR IV SCH ×2 (05:45→18:33)
[2021-04-28] MEDS: METOPROLOL TART 25 MG TABLET PO SCH ×3 (05:46→21:41)
[2021-04-28 06:35] LABS: HEMOGLOBIN 9.2 g/dl (12.0-15.5); MEAN CORPUSCULAR HEMOGLOBIN 23.1 pg (27.0-33.0); MEAN CORPUSCULAR HGB CONC 27.1 g/dl (32.0-36.5); MEAN CORPUSCULAR VOLUME 85.2 fl (80.0-96.0); PLATELET COUNT, AUTOMATED 450 10^3/uL (150-450); RED BLOOD COUNT 3.99 10^6/uL (4.00-5.40); WHITE BLOOD COUNT 9.8 10^3/uL (4.0-10.0)
[2021-04-28 06:54] LABS: BLOOD UREA NITROGEN 29 MG/DL (7-18); GLUCOSE, FASTING 118 MG/DL (70-100)
[2021-04-28 06:55] LABS: ALBUMIN 3.2 GM/DL (3.2-5.2); ALT/SGPT 21 U/L (12-78); BILIRUBIN,TOTAL 0.8 MG/DL (0.2-1.0); CALCIUM LEVEL 8.4 MG/DL (8.8-10.2); CARBON DIOXIDE LEVEL 38 MEQ/L (21-32); CHLORIDE LEVEL 99 MEQ/L (98-107); GLOMERULAR FILTRATION RATE > 60.0 (>45); MAGNESIUM LEVEL 1.8 MG/DL (1.8-2.4); POTASSIUM SERUM 3.6 MEQ/L (3.5-5.1); SODIUM LEVEL 143 MEQ/L (136-145); TOTAL PROTEIN 7.4 GM/DL (6.4-8.2)
[2021-04-28] MEDS: HumaLOG INSULIN (NovoLOG) PER UNIT SC SCH ×4 (07:30→21:00)
[2021-04-28] MEDS: ACETAMINOPHEN TAB 650MG DOSE (2X325MG) PO PRN ×3 (08:31→21:41)
[2021-04-28] MEDS: RIVAROXABAN 15 MG TAB (XARELTO) PO SCH ×2 (08:31→18:33)
[2021-04-28] MEDS: medroxyPROGESTERone 5MG TABLET PO SCH ×2 (08:31→21:40)
[2021-04-28] MEDS: NYSTATIN 100,000 UNITS/GM TOPICAL PWD 15 GM TOP SCH ×2 (08:32→21:41)
[2021-04-28] MEDS: PANTOPRAZOLE 40MG TAB (PROTONIX) PO SCH (08:32)
[2021-04-28] MEDS: MONTELUKAST 10 MG TAB PO SCH (21:40)
[2021-04-28] MEDS: RAMELTEON 8 MG TAB (ROZEREM) PO SCH (21:40)
[2021-04-28] MEDS: POLYVINYL ALCOHOL OPHTH SOLN 15 ML(LIQUITEARS) OU PRN (21:41)
[2021-04-29] MEDS: FUROSEMIDE 100MG/10ML VIAL (J1940) IV SCH ×3 (02:02→17:59)
[2021-04-29] MEDS: SODIUM CHLORIDE 0.9% INJ 10 ML SYR IV PRN ×3 (02:03→05:47)
[2021-04-29 04:24] VITALS: O2SAT 92
[2021-04-29] MEDS: IPRATROPIUM 0.5MG/ALBUTEROL 2.5MG INH SOL UD 3ML (DUONEB) NEB SCH ×5 (05:04→18:58)
[2021-04-29] MEDS: METOPROLOL TART 25 MG TABLET PO SCH ×3 (05:45→21:37)
[2021-04-29] MEDS: SODIUM CHLORIDE 0.9% INJ 10 ML SYR IV SCH ×2 (05:46→18:00)
[2021-04-29 06:00] VITALS: BP 141/76
[2021-04-29 06:12] LABS: HEMATOCRIT 32.8 % (36.0-47.0); MEAN CORPUSCULAR HEMOGLOBIN 22.8 pg (27.0-33.0); MEAN CORPUSCULAR HGB CONC 27.4 g/dl (32.0-36.5); PLATELET COUNT, AUTOMATED 429 10^3/uL (150-450); RED BLOOD COUNT 3.95 10^6/uL (4.00-5.40); WHITE BLOOD COUNT 9.7 10^3/uL (4.0-10.0)
[2021-04-29 06:47] LABS: ALT/SGPT 21 U/L (12-78); BILIRUBIN,TOTAL 0.7 MG/DL (0.2-1.0); BLOOD UREA NITROGEN 30 MG/DL (7-18); CALCIUM LEVEL 8.3 MG/DL (8.8-10.2); CARBON DIOXIDE LEVEL 37 MEQ/L (21-32); CHLORIDE LEVEL 98 MEQ/L (98-107); CREATININE FOR GFR 0.95 MG/DL (0.55-1.30); GLOMERULAR FILTRATION RATE > 60.0 (>45); GLUCOSE, FASTING 126 MG/DL (70-100); POTASSIUM SERUM 3.1 MEQ/L (3.5-5.1); SODIUM LEVEL 141 MEQ/L (136-145); TOTAL PROTEIN 6.9 GM/DL (6.4-8.2)
[2021-04-29 06:48] LABS: MAGNESIUM LEVEL 1.6 MG/DL (1.8-2.4)
[2021-04-29] MEDS: HumaLOG INSULIN (NovoLOG) PER UNIT SC SCH ×4 (07:30→21:00)
[2021-04-29] MEDS: RIVAROXABAN 15 MG TAB (XARELTO) PO SCH ×2 (08:55→17:59)
[2021-04-29] MEDS: NYSTATIN 100,000 UNITS/GM TOPICAL PWD 15 GM TOP SCH ×2 (08:56→21:36)
[2021-04-29] MEDS: ACETAMINOPHEN TAB 650MG DOSE (2X325MG) PO PRN ×3 (08:56→21:37)
[2021-04-29] MEDS: medroxyPROGESTERone 5MG TABLET PO SCH ×2 (08:56→21:36)
[2021-04-29] MEDS: PANTOPRAZOLE 40MG TAB (PROTONIX) PO SCH (08:56)
[2021-04-29 09:00] VITALS: BP 110/64
[2021-04-29 09:43] VITALS: O2SAT 90
[2021-04-29 14:00] VITALS: BP 107/64
[2021-04-29] MEDS: POTASSIUM CHLORIDE 10MEQ SR TABLET PO SCH ×2 (15:30→17:59)
[2021-04-29 20:00] VITALS: BP 107/65
[2021-04-29] MEDS: RAMELTEON 8 MG TAB (ROZEREM) PO SCH (21:36)
[2021-04-29] MEDS: MONTELUKAST 10 MG TAB PO SCH (21:36)
[2021-04-30] MEDS: IPRATROPIUM 0.5MG/ALBUTEROL 2.5MG INH SOL UD 3ML (DUONEB) NEB SCH ×6 (03:53→19:14)
[2021-04-30 04:02] VITALS: O2SAT 95
[2021-04-30] MEDS: METOPROLOL TART 25 MG TABLET PO SCH ×3 (05:32→22:07)
[2021-04-30] MEDS: SODIUM CHLORIDE 0.9% INJ 10 ML SYR IV SCH ×2 (05:32→17:25)
[2021-04-30] MEDS: SODIUM CHLORIDE 0.9% INJ 10 ML SYR IV PRN ×4 (05:33→22:44)
[2021-04-30 06:00] VITALS: BP 146/80
[2021-04-30 06:06] LABS: HEMATOCRIT 34.7 % (36.0-47.0); HEMOGLOBIN 9.4 g/dl (12.0-15.5); MEAN CORPUSCULAR HEMOGLOBIN 22.5 pg (27.0-33.0); MEAN CORPUSCULAR HGB CONC 27.1 g/dl (32.0-36.5); PLATELET COUNT, AUTOMATED 465 10^3/uL (150-450); RED BLOOD COUNT 4.18 10^6/uL (4.00-5.40); WHITE BLOOD COUNT 10.4 10^3/uL (4.0-10.0)
[2021-04-30 06:23] LABS: ALBUMIN 3.3 GM/DL (3.2-5.2); BILIRUBIN,TOTAL 0.7 MG/DL (0.2-1.0); CALCIUM LEVEL 8.9 MG/DL (8.8-10.2); CREATININE FOR GFR 1.04 MG/DL (0.55-1.30); GLOMERULAR FILTRATION RATE 57.5 (>45); MAGNESIUM LEVEL 1.7 MG/DL (1.8-2.4); POTASSIUM SERUM 3.4 MEQ/L (3.5-5.1); TOTAL PROTEIN 7.6 GM/DL (6.4-8.2)
[2021-04-30] MEDS: HumaLOG INSULIN (NovoLOG) PER UNIT SC SCH ×4 (07:30→21:00)
[2021-04-30] MEDS: RIVAROXABAN 15 MG TAB (XARELTO) PO SCH ×2 (08:09→17:24)
[2021-04-30] MEDS: medroxyPROGESTERone 5MG TABLET PO SCH ×2 (08:09→22:05)
[2021-04-30] MEDS: PANTOPRAZOLE 40MG TAB (PROTONIX) PO SCH (08:09)
[2021-04-30] MEDS: FUROSEMIDE 100MG/10ML VIAL (J1940) IV SCH ×2 (08:11→22:08)
[2021-04-30] MEDS: NYSTATIN 100,000 UNITS/GM TOPICAL PWD 15 GM TOP SCH ×2 (08:14→22:06)
[2021-04-30 09:00] VITALS: O2SAT 94
[2021-04-30] MEDS: ACETAMINOPHEN TAB 650MG DOSE (2X325MG) PO PRN ×2 (11:55→22:08)
[2021-04-30] MEDS: VANICREAM MOISTURIZING SKIN CREAM 113GM TUBE TOP SCH ×2 (13:32→22:06)
[2021-04-30 14:00] VITALS: BP 116/62
[2021-04-30] MEDS: RAMELTEON 8 MG TAB (ROZEREM) PO SCH (22:05)
[2021-04-30] MEDS: MONTELUKAST 10 MG TAB PO SCH (22:06)
[2021-05-01] MEDS: IPRATROPIUM 0.5MG/ALBUTEROL 2.5MG INH SOL UD 3ML (DUONEB) NEB SCH ×7 (00:10→23:16)
[2021-05-01] MEDS: ACETAMINOPHEN TAB 650MG DOSE (2X325MG) PO PRN ×2 (02:57→22:06)
[2021-05-01 04:27] VITALS: O2SAT 90
[2021-05-01 06:00] VITALS: BP 120/63
[2021-05-01] MEDS: SODIUM CHLORIDE 0.9% INJ 10 ML SYR IV SCH ×2 (06:32→17:12)
[2021-05-01] MEDS: METOPROLOL TART 25 MG TABLET PO SCH ×3 (06:32→22:09)
[2021-05-01] MEDS: SODIUM CHLORIDE 0.9% INJ 10 ML SYR IV PRN (06:33)
[2021-05-01] MEDS: POLYVINYL ALCOHOL OPHTH SOLN 15 ML(LIQUITEARS) OU PRN (06:51)
[2021-05-01 07:21] LABS: HEMATOCRIT 32.7 % (36.0-47.0); HEMOGLOBIN 8.9 g/dl (12.0-15.5); MEAN CORPUSCULAR HEMOGLOBIN 22.5 pg (27.0-33.0); MEAN CORPUSCULAR HGB CONC 27.2 g/dl (32.0-36.5); MEAN CORPUSCULAR VOLUME 82.8 fl (80.0-96.0); PLATELET COUNT, AUTOMATED 416 10^3/uL (150-450); RED BLOOD COUNT 3.95 10^6/uL (4.00-5.40); WHITE BLOOD COUNT 9.4 10^3/uL (4.0-10.0)
[2021-05-01] MEDS: HumaLOG INSULIN (NovoLOG) PER UNIT SC SCH ×4 (07:30→21:00)
[2021-05-01 07:50] LABS: ALBUMIN 3.2 GM/DL (3.2-5.2); BILIRUBIN,TOTAL 0.6 MG/DL (0.2-1.0); CALCIUM LEVEL 7.9 MG/DL (8.8-10.2); CREATININE FOR GFR 1.11 MG/DL (0.55-1.30); GLOMERULAR FILTRATION RATE 53.4 (>45); MAGNESIUM LEVEL 1.6 MG/DL (1.8-2.4); POTASSIUM SERUM 3.6 MEQ/L (3.5-5.1); TOTAL PROTEIN 7.1 GM/DL (6.4-8.2)
[2021-05-01] MEDS: PANTOPRAZOLE 40MG TAB (PROTONIX) PO SCH (08:09)
[2021-05-01] MEDS: FUROSEMIDE 100MG/10ML VIAL (J1940) IV SCH (08:09)
[2021-05-01] MEDS: RIVAROXABAN 15 MG TAB (XARELTO) PO SCH ×2 (08:09→17:13)
[2021-05-01] MEDS: medroxyPROGESTERone 5MG TABLET PO SCH ×2 (08:09→22:05)
[2021-05-01] MEDS: VANICREAM MOISTURIZING SKIN CREAM 113GM TUBE TOP SCH ×2 (08:11→22:10)
[2021-05-01] MEDS: NYSTATIN 100,000 UNITS/GM TOPICAL PWD 15 GM TOP SCH ×2 (08:11→22:06)
[2021-05-01 09:00] VITALS: O2SAT 94
[2021-05-01 14:00] VITALS: BP 110/59
[2021-05-01] MEDS ORDERED: FUROSEMIDE 100MG/10ML VIAL (J1940) IV SCH (17:00)
[2021-05-01] MEDS: FUROSEMIDE 40 MG TAB PO SCH (17:13)
[2021-05-01 22:00] VITALS: BP 117/64; O2SAT 99
[2021-05-01] MEDS: RAMELTEON 8 MG TAB (ROZEREM) PO SCH (22:05)
[2021-05-01] MEDS: MONTELUKAST 10 MG TAB PO SCH (22:05)
[2021-05-02] MEDS: IPRATROPIUM 0.5MG/ALBUTEROL 2.5MG INH SOL UD 3ML (DUONEB) NEB SCH ×6 (03:53→23:58)
[2021-05-02] MEDS: SODIUM CHLORIDE 0.9% INJ 10 ML SYR IV SCH ×2 (05:29→18:09)
[2021-05-02] MEDS: METOPROLOL TART 25 MG TABLET PO SCH ×3 (05:31→21:18)
[2021-05-02 05:49] LABS: HEMATOCRIT 31.9 % (36.0-47.0); HEMOGLOBIN 8.7 g/dl (12.0-15.5); MEAN CORPUSCULAR HEMOGLOBIN 22.8 pg (27.0-33.0); MEAN CORPUSCULAR HGB CONC 27.3 g/dl (32.0-36.5); MEAN CORPUSCULAR VOLUME 83.5 fl (80.0-96.0); PLATELET COUNT, AUTOMATED 390 10^3/uL (150-450); RED BLOOD COUNT 3.82 10^6/uL (4.00-5.40); WHITE BLOOD COUNT 9.5 10^3/uL (4.0-10.0)
[2021-05-02 06:00] VITALS: BP 116/63
[2021-05-02 06:21] LABS: ALT/SGPT 20 U/L (12-78); BILIRUBIN,TOTAL 0.6 MG/DL (0.2-1.0); BLOOD UREA NITROGEN 24 MG/DL (7-18); CALCIUM LEVEL 7.9 MG/DL (8.8-10.2); CARBON DIOXIDE LEVEL 35 MEQ/L (21-32); CHLORIDE LEVEL 103 MEQ/L (98-107); CREATININE FOR GFR 0.88 MG/DL (0.55-1.30); GLOMERULAR FILTRATION RATE > 60.0 (>45); GLUCOSE, FASTING 131 MG/DL (70-100); MAGNESIUM LEVEL 1.6 MG/DL (1.8-2.4); POTASSIUM SERUM 3.2 MEQ/L (3.5-5.1); SODIUM LEVEL 142 MEQ/L (136-145); TOTAL PROTEIN 7.1 GM/DL (6.4-8.2)
[2021-05-02 09:00] VITALS: O2SAT 94
[2021-05-02] MEDS: PANTOPRAZOLE 40MG TAB (PROTONIX) PO SCH (09:15)
[2021-05-02] MEDS: RIVAROXABAN 15 MG TAB (XARELTO) PO SCH ×2 (09:15→18:08)
[2021-05-02] MEDS: medroxyPROGESTERone 5MG TABLET PO SCH ×2 (09:15→21:16)
[2021-05-02] MEDS: NYSTATIN 100,000 UNITS/GM TOPICAL PWD 15 GM TOP SCH ×2 (09:16→21:30)
[2021-05-02] MEDS: HumaLOG INSULIN (NovoLOG) PER UNIT SC SCH ×4 (09:16→21:00)
[2021-05-02] MEDS: ACETAMINOPHEN TAB 650MG DOSE (2X325MG) PO PRN ×2 (09:17→22:36)
[2021-05-02] MEDS: FUROSEMIDE 40 MG TAB PO SCH ×2 (09:17→18:08)
[2021-05-02] MEDS: VANICREAM MOISTURIZING SKIN CREAM 113GM TUBE TOP SCH ×2 (09:18→21:30)
[2021-05-02 14:00] VITALS: BP 110/60
[2021-05-02] MEDS ORDERED: POTASSIUM CHLORIDE 10MEQ SR TABLET PO ONE (18:45)
[2021-05-02 21:00] VITALS: O2SAT 90
[2021-05-02] MEDS: RAMELTEON 8 MG TAB (ROZEREM) PO SCH (21:17)
[2021-05-02] MEDS: MONTELUKAST 10 MG TAB PO SCH (21:17)
[2021-05-02 22:00] VITALS: BP 118/71
[2021-05-03 02:25] VITALS: O2SAT 93
[2021-05-03] MEDS: IPRATROPIUM 0.5MG/ALBUTEROL 2.5MG INH SOL UD 3ML (DUONEB) NEB SCH ×6 (04:46→23:19)
[2021-05-03] MEDS: METOPROLOL TART 25 MG TABLET PO SCH ×3 (05:43→21:17)
[2021-05-03] MEDS: SODIUM CHLORIDE 0.9% INJ 10 ML SYR IV SCH ×2 (05:43→17:59)
[2021-05-03 06:00] VITALS: BP 117/70
[2021-05-03 06:02] LABS: HEMATOCRIT 30.6 % (36.0-47.0); HEMOGLOBIN 8.3 g/dl (12.0-15.5); MEAN CORPUSCULAR HEMOGLOBIN 22.6 pg (27.0-33.0); MEAN CORPUSCULAR HGB CONC 27.1 g/dl (32.0-36.5); MEAN CORPUSCULAR VOLUME 83.2 fl (80.0-96.0); PLATELET COUNT, AUTOMATED 386 10^3/uL (150-450); RED BLOOD COUNT 3.68 10^6/uL (4.00-5.40)
[2021-05-03 06:31] LABS: ALT/SGPT 21 U/L (12-78); BILIRUBIN,TOTAL 0.6 MG/DL (0.2-1.0); BLOOD UREA NITROGEN 21 MG/DL (7-18); CALCIUM LEVEL 8.1 MG/DL (8.8-10.2); CARBON DIOXIDE LEVEL 34 MEQ/L (21-32); CHLORIDE LEVEL 103 MEQ/L (98-107); CREATININE FOR GFR 0.74 MG/DL (0.55-1.30); GLOMERULAR FILTRATION RATE > 60.0 (>45); GLUCOSE, FASTING 118 MG/DL (70-100); MAGNESIUM LEVEL 1.7 MG/DL (1.8-2.4); POTASSIUM SERUM 3.6 MEQ/L (3.5-5.1); SODIUM LEVEL 142 MEQ/L (136-145); TOTAL PROTEIN 7.1 GM/DL (6.4-8.2)
[2021-05-03] MEDS ORDERED: MAG SULF 1GM/100ML (MAG RUN) 1 GM in IV 1 EA IV ONE (08:00)
[2021-05-03] MEDS: HumaLOG INSULIN (NovoLOG) PER UNIT SC SCH ×4 (08:36→21:00)
[2021-05-03] MEDS: medroxyPROGESTERone 5MG TABLET PO SCH ×2 (08:36→21:18)
[2021-05-03] MEDS: RIVAROXABAN 15 MG TAB (XARELTO) PO SCH ×2 (08:36→17:58)
[2021-05-03] MEDS: PANTOPRAZOLE 40MG TAB (PROTONIX) PO SCH (08:36)
[2021-05-03] MEDS: FUROSEMIDE 40 MG TAB PO SCH ×2 (08:36→17:58)
[2021-05-03] MEDS: NYSTATIN 100,000 UNITS/GM TOPICAL PWD 15 GM TOP SCH ×2 (08:37→21:18)
[2021-05-03] MEDS: ACETAMINOPHEN TAB 650MG DOSE (2X325MG) PO PRN ×2 (08:38→21:17)
[2021-05-03] MEDS: VANICREAM MOISTURIZING SKIN CREAM 113GM TUBE TOP SCH ×2 (08:39→21:19)
[2021-05-03 14:00] VITALS: BP 108/65
[2021-05-03] MEDS: RAMELTEON 8 MG TAB (ROZEREM) PO SCH (21:17)
[2021-05-03] MEDS: MONTELUKAST 10 MG TAB PO SCH (21:17)
[2021-05-03 22:00] VITALS: BP 124/60
[2021-05-04] MEDS: IPRATROPIUM 0.5MG/ALBUTEROL 2.5MG INH SOL UD 3ML (DUONEB) NEB SCH ×6 (03:51→23:14)
[2021-05-04] MEDS: SODIUM CHLORIDE 0.9% INJ 10 ML SYR IV SCH ×2 (05:31→18:24)
[2021-05-04] MEDS: METOPROLOL TART 25 MG TABLET PO SCH ×3 (05:32→21:11)
[2021-05-04 06:00] VITALS: BP 125/60
[2021-05-04] MEDS: HumaLOG INSULIN (NovoLOG) PER UNIT SC SCH ×4 (07:30→21:00)
[2021-05-04] MEDS: PANTOPRAZOLE 40MG TAB (PROTONIX) PO SCH (08:12)
[2021-05-04] MEDS: RIVAROXABAN 15 MG TAB (XARELTO) PO SCH ×2 (08:13→18:23)
[2021-05-04] MEDS: medroxyPROGESTERone 5MG TABLET PO SCH ×2 (08:13→21:47)
[2021-05-04] MEDS: FUROSEMIDE 40 MG TAB PO SCH ×2 (08:13→17:20)
[2021-05-04] MEDS: NYSTATIN 100,000 UNITS/GM TOPICAL PWD 15 GM TOP SCH ×2 (08:14→21:10)
[2021-05-04 08:18] LABS: BASO # 0.1 10^3/uL (0.0-0.2); BASO % 0.8 % (0.0-1.0); EOS # 0.2 10^3/uL (0.0-0.5); EOS % 1.5 % (0.0-3.0); HEMATOCRIT 31.8 % (36.0-47.0); HEMOGLOBIN 8.3 g/dl (12.0-15.5); LYMPH # 0.9 10^3/uL (1.5-5.0); LYMPH % 8.5 % (24.0-44.0); MEAN CORPUSCULAR HEMOGLOBIN 21.8 pg (27.0-33.0); MEAN CORPUSCULAR HGB CONC 26.1 g/dl (32.0-36.5); MEAN CORPUSCULAR VOLUME 83.5 fl (80.0-96.0); MONO # 0.6 10^3/uL (0.0-0.8); MONO % 5.7 % (2.0-8.0); NEUTROPHILS # 8.7 10^3/uL (1.5-8.5); PLATELET COUNT, AUTOMATED 402 10^3/uL (150-450); RED BLOOD COUNT 3.81 10^6/uL (4.00-5.40); WHITE BLOOD COUNT 10.5 10^3/uL (4.0-10.0)
[2021-05-04 08:35] LABS: BLOOD UREA NITROGEN 18 MG/DL (7-18); CALCIUM LEVEL 8.1 MG/DL (8.8-10.2); CARBON DIOXIDE LEVEL 31 MEQ/L (21-32); CHLORIDE LEVEL 105 MEQ/L (98-107); GLOMERULAR FILTRATION RATE > 60.0 (>45); GLUCOSE, FASTING 121 MG/DL (70-100); MAGNESIUM LEVEL 1.8 MG/DL (1.8-2.4); POTASSIUM SERUM 3.7 MEQ/L (3.5-5.1); SODIUM LEVEL 142 MEQ/L (136-145)
[2021-05-04] MEDS: ACETAMINOPHEN TAB 650MG DOSE (2X325MG) PO PRN ×3 (08:39→21:13)
[2021-05-04] MEDS: VANICREAM MOISTURIZING SKIN CREAM 113GM TUBE TOP SCH ×2 (12:24→21:10)
[2021-05-04] MEDS: RAMELTEON 8 MG TAB (ROZEREM) PO SCH (21:12)
[2021-05-04] MEDS: MONTELUKAST 10 MG TAB PO SCH (21:12)
[2021-05-05] MEDS: IPRATROPIUM 0.5MG/ALBUTEROL 2.5MG INH SOL UD 3ML (DUONEB) NEB SCH ×4 (04:51→15:31)
[2021-05-05] MEDS: METOPROLOL TART 25 MG TABLET PO SCH ×2 (05:32→14:26)
[2021-05-05] MEDS: SODIUM CHLORIDE 0.9% INJ 10 ML SYR IV SCH (05:33)
[2021-05-05 05:50] LABS: BASO # 0.1 10^3/uL (0.0-0.2); BASO % 0.5 % (0.0-1.0); EOS # 0.2 10^3/uL (0.0-0.5); EOS % 2.1 % (0.0-3.0); HEMATOCRIT 30.2 % (36.0-47.0); LYMPH # 1.1 10^3/uL (1.5-5.0); LYMPH % 11.7 % (24.0-44.0); MEAN CORPUSCULAR HEMOGLOBIN 22.1 pg (27.0-33.0); MEAN CORPUSCULAR HGB CONC 26.5 g/dl (32.0-36.5); MEAN CORPUSCULAR VOLUME 83.4 fl (80.0-96.0); MONO # 0.6 10^3/uL (0.0-0.8); MONO % 6.3 % (2.0-8.0); NEUTROPHILS # 7.2 10^3/uL (1.5-8.5); NEUTROPHILS % 79.1 % (36.0-66.0); PLATELET COUNT, AUTOMATED 361 10^3/uL (150-450); RED BLOOD COUNT 3.62 10^6/uL (4.00-5.40); WHITE BLOOD COUNT 9.1 10^3/uL (4.0-10.0)
[2021-05-05 06:00] VITALS: BP 121/60
[2021-05-05 06:11] LABS: BLOOD UREA NITROGEN 16 MG/DL (7-18); CALCIUM LEVEL 8.2 MG/DL (8.8-10.2); CARBON DIOXIDE LEVEL 33 MEQ/L (21-32); CHLORIDE LEVEL 105 MEQ/L (98-107); CREATININE FOR GFR 0.74 MG/DL (0.55-1.30); GLOMERULAR FILTRATION RATE > 60.0 (>45); GLUCOSE, FASTING 120 MG/DL (70-100); MAGNESIUM LEVEL 1.7 MG/DL (1.8-2.4); POTASSIUM SERUM 3.7 MEQ/L (3.5-5.1); SODIUM LEVEL 140 MEQ/L (136-145)
[2021-05-05] MEDS: HumaLOG INSULIN (NovoLOG) PER UNIT SC SCH ×2 (07:30→11:55)
[2021-05-05] MEDS: medroxyPROGESTERone 5MG TABLET PO SCH (08:19)
[2021-05-05] MEDS: NYSTATIN 100,000 UNITS/GM TOPICAL PWD 15 GM TOP SCH (08:20)
[2021-05-05] MEDS: FUROSEMIDE 40 MG TAB PO SCH (08:20)
[2021-05-05] MEDS: RIVAROXABAN 15 MG TAB (XARELTO) PO SCH (08:20)
[2021-05-05] MEDS: PANTOPRAZOLE 40MG TAB (PROTONIX) PO SCH (08:20)
[2021-05-05] MEDS: VANICREAM MOISTURIZING SKIN CREAM 113GM TUBE TOP SCH (08:20)
[2021-05-05] MEDS: ACETAMINOPHEN TAB 650MG DOSE (2X325MG) PO PRN (08:26)
[2021-05-05] MEDS ORDERED: PANT40TA29 PO (08:58)
[2021-05-05] MEDS ORDERED: METO1TAB87 PO (08:58)
[2021-05-05] MEDS ORDERED: XARE15TA PO (08:58)
[2021-05-05] MEDS ORDERED: MAGN400T2 PO (08:58)
[2021-05-05] MEDS ORDERED: IPRA0.00 NEB (08:58)
[2021-05-05] MEDS ORDERED: FURO40TA2 PO (08:58)
[2021-05-05] MEDS ORDERED: RAME8TAB2 PO (08:58)
[2021-05-05] MEDS ORDERED: MEDR5TAB3 PO (08:58)
[2021-05-05] MEDS ORDERED: MAGNESIUM OXIDE 400MG TAB (MAG-OX) PO SCH (09:00)
[2021-05-05 14:26] VITALS: BP 120/62
[2021-05-05] MEDS ORDERED: TORS20TA2 PO (15:18)
[2021-05-06] MEDS ORDERED: COMBAER6 INH (14:16)
== END 2021-05-05 16:21 | disposition home health service (06) | DRG 133 ==
LOC: M ICU 12:36 → EEVIPCON 12:36 → M MSPAV 04-22 13:53
PROVIDERS: ADMIT Internal Medicine; ATTEND Internal Medicine
PROC: 0BH17EZ Insertion of Endotracheal Airway into Trachea, Via Natural or Artificial Opening (ICD-10-PCS; principal; 2021-04-09)
PROC: 02HV33Z Insertion of Infusion Device into Superior Vena Cava, Percutaneous Approach (ICD-10-PCS; 2021-04-15)
DX: J96.21 Acute and chronic respiratory failure with hypoxia (principal); J15.212 Pneumonia due to Methicillin resistant Staphylococcus aureus; I11.0 Hypertensive heart disease with heart failure; D68.59 Other primary thrombophilia; E87.2 Acidosis; E66.2 Morbid (severe) obesity with alveolar hypoventilation; I50.32 Chronic diastolic (congestive) heart failure; D62 Acute posthemorrhagic anemia; Z68.44 Body mass index [BMI] 60.0-69.9, adult; Z86.711 Personal history of pulmonary embolism; F32.9 Major depressive disorder, single episode, unspecified; Z91.19 Patient's noncompliance with other medical treatment and regimen; K21.9 Gastro-esophageal reflux disease without esophagitis; R26.89 Other abnormalities of gait and mobility; Z79.01 Long term (current) use of anticoagulants; Z79.899 Other long term (current) drug therapy; N93.9 Abnormal uterine and vaginal bleeding, unspecified; J96.22 Acute and chronic respiratory failure with hypercapnia

== ENCOUNTER → 2021-05-12 | Outpatient (CLI) | payer OTHER ==
[~2021-05-12] MED LIST changes: -CHLORHEXIDINE GLUCONATE 0.12 % 15ML UDC (PERIDEX ORAL RINSE) MT SCH; +COMBAER6 INH; -FLUO-96 PO; +FLUO20CA20 PO; +FURO40TA2 PO; +IPRA0.00 NEB; +LISI20TA20 PO; -LISI20TA37 PO; +MAGN400T2 PO; +METO1TAB87 PO; +MONT10TA10 PO; -MONT10TA97 PO; +PANT40TA29 PO; +RAME8TAB2 PO; +XARE15TA PO
[2021-05-12 17:16] LABS: BASO # 0.1 10^3/uL (0.0-0.2); BASO % 0.6 % (0.0-1.0); EOS # 0.2 10^3/uL (0.0-0.5); EOS % 2.4 % (0.0-3.0); HEMATOCRIT 32.8 % (36.0-47.0); HEMOGLOBIN 8.8 g/dl (12.0-15.5); LYMPH # 1.2 10^3/uL (1.5-5.0); LYMPH % 12.1 % (24.0-44.0); MEAN CORPUSCULAR HEMOGLOBIN 22.1 pg (27.0-33.0); MEAN CORPUSCULAR HGB CONC 26.8 g/dl (32.0-36.5); MEAN CORPUSCULAR VOLUME 82.2 fl (80.0-96.0); MONO # 0.5 10^3/uL (0.0-0.8); MONO % 5.7 % (2.0-8.0); NEUTROPHILS # 7.5 10^3/uL (1.5-8.5); NEUTROPHILS % 78.7 % (36.0-66.0); PLATELET COUNT, AUTOMATED 331 10^3/uL (150-450); RED BLOOD COUNT 3.99 10^6/uL (4.00-5.40); WHITE BLOOD COUNT 9.5 10^3/uL (4.0-10.0)
[2021-05-12 17:17] LABS: ALBUMIN 3.3 GM/DL (3.2-5.2); BLOOD UREA NITROGEN 13 MG/DL (7-18); CALCIUM LEVEL 7.8 MG/DL (8.8-10.2); CARBON DIOXIDE LEVEL 34 MEQ/L (21-32); CHLORIDE LEVEL 103 MEQ/L (98-107); CREATININE FOR GFR 0.74 MG/DL (0.55-1.30); GLOMERULAR FILTRATION RATE > 60.0 (>45); GLUCOSE, FASTING 95 MG/DL (70-100); MAGNESIUM LEVEL 1.9 MG/DL (1.8-2.4); PHOSPHORUS LEVEL 3.5 MG/DL (2.5-4.9); POTASSIUM SERUM 3.7 MEQ/L (3.5-5.1); SODIUM LEVEL 142 MEQ/L (136-145)
== END ==
LOC: M PLALAB 14:49
PROVIDERS: ATTEND Physician Assistant
DX: I50.9 Heart failure, unspecified (principal); N93.9 Abnormal uterine and vaginal bleeding, unspecified; R60.0 Localized edema

== ENCOUNTER → 2021-07-04 | Outpatient (REF) | payer OTHER ==
[2021-07-04 15:18] LABS: HEMOGLOBIN A1c 5.9 %
== END ==
LOC: M SHH 14:03
PROVIDERS: ATTEND Student in an Organized Health Care Education/Training Program
DX: E11.9 Type 2 diabetes mellitus without complications (principal)

== ENCOUNTER 2021-08-19 16:28 | Inpatient (IN) | payer OTHER, MEDICAID ==
[~2021-08-19] VITALS: Ht 172.7 cm; Wt 161.4 kg
[~2021-08-19 16:28] MED LIST changes: -ANOR1AER PO; -HYDR-3363 PO; -MEDR10TA PO; -VENL37.52 PO
--- OUTSIDE RECORDS SUMMARY | 2021-08-19 16:36 | CCD ---
Author Author [facility] Organization [facility] Address Unknown Phone Unavailable Care Team Providers Care Results Engineer Name Role Phone Laura Lisa Unavailable PROBLEMS Type Condition ICD9-CM Code [id number] Code Onset Dates Condition S tatus W/U Status Risk SNOMED Code Notes Problem Congestive heart failure I50.9 Active confirmed 42052098 Problem Depression F32.9 Active confirmed 851705027 Problem Hypertension I10 Active confirmed 2437723 3 Problem Mammogram abnormal R92.8 Active confirmed 1 81515853 Problem Maxillary sinusitis, unspecified chronicity J32.0 Active confirmed 89909314 Problem Allergic rhinitis, unspecifi ed chronicity, unspecified seasonality, unspecified trigger J30.9 Active confirmed 15772935 Problem Hx pulmonary embolism Z86.711 Active confirmed 536468585 Problem BMI 60.0-69.9, adult Z68.44 Active confirmed 355390568 Problem Anxiety F41.9 Active confirmed 44539118 Problem Hypertriglyceridemia E78.1 Active confirmed 094392451 Problem Reactive airway disease J45.909 Active confirmed 668198270295 Problem Obstructive sleep apnea (adult) (pediatric) G47.33 Active confirmed 43514207 Problem Aortic valve sclerosis I35.8 Active confirmed 65487144 Problem Lumbago with sciatica, right side M54.41 Active confirmed 031401870 Problem Morbid obesity E66.01 Active confirmed 83247 6002 Problem Polyarthropathy M13.0 Active confirmed 3618 6002 Problem Irregular menstrual cycle N92.6 Active confirmed 96924816 Problem Abnormal bleeding in menstrual cycle N93.9 Act arun confirmed 415354701 Problem Insomnia, unspecified type G47.00 Active confirmed 522414394 Problem CHELA (obstructive sleep apnea) G47.33 Active confirm ed 39025938 Problem Acute and chronic respiratory failure with hypercapnia J96.22 Active confirmed 4398949131007 Problem Acute and chronic respiratory failure with hypoxia J96.21 Active confirmed 40896437564674 Problem Type 2 diabetes mellitus wit hout complication, unspecified whether skilled nursing insulin use E11.9 Active confirmed 833874286 Problem Major depressive disorder, single episode, moderate F32.1 Active confirmed 993663854 Problem Osteoarthritis, unspecified osteoarthritis type, unspecified site M19.90 Active confirmed 639121136 Problem Hyperlipidemia, unspecified hyperlipidemia type E7 8.5 Active confirmed 23224383 Problem Diastolic dysfunction I51.9 Active confirmed 8395298 Problem Obesity hypoventilation syndrome E66.2 Active conf irmed 68796762 Problem Vaginal bleeding N93.9 Active confirmed 289 331479 Problem Nonrheumatic aortic valve stenosis I35.0 Activ e confirmed 835832311 Problem Pneumonia due to methicillin resistant Staphylococcus aureus, unspecified laterality, unspecified part of lung J15.212 A ctive confirmed [id number] ALLERGIES Allergen (clinical drug ingredient) Drug/Non Drug Allergy do cumented on EMR Reaction Allergy Type Onset Date Status Pollen Pollen itchy,waterty eyes, Drug Allergy Act arun ENCOUNTERS from 1960 to 2021-08-09 Encounter Location Date Provider Diagnosis [facility] [address] [facility] [phone] [place] [address] Aug, Laura Lisa IMMUNIZATIONS Vaccine Route Administration Date Status Influenza 18 yrs & older Flublok IM Intramuscular Sep 01, 2019 Administered Influenza 6mo & up Fluzone IM Intramuscular Jul 19, 2017 Admi nistered Influenza 6mo & up Fluzone Unknown Aug 17, 2016 Refus ed SOCIAL HISTORY Tobacco Use: Social History Observation Description Date Details (start date - stop date) Never Smoker Sex Assigned At : Social History Observation Description Sex Assigned At Unknown Audit Question Answer Notes Total Score: 0 Interpretation: Alcohol Education Sexual Hx: Question Answer Notes Had sex in the last 12 months (vaginal, oral, or anal)? No Drug and Alcohol Question Answer Notes Total Score: 0 Interpretation: No problems reported Alcohol Screening: Question Answer Notes Did you have a drink containing alcohol in the past year? No Points 0 Interpretation Negative BMI Care Goal Follow-Up Question Answer Notes Above Normal BMI Follow-Up Dietary management educatio n, guidance, and counseling Tobacco Use: Question Answer Notes Are you a: never smoker never smoker REASON FOR REFERRAL No Information VITAL SIGNS No information MEDICATIONS Medication SIG (Take, Route, Frequency, Duration) Notes Start Da te End Date Status Metoprolol Tartrate 25 MG 1 tablet with food Orally th ree times daily for 30 days Active metFORMIN HCl 500 MG 1 tablet with a meal Orally Twice daily for 30 d ays Active Trazodone HCl 50 MG TAKE ONE TO TWO TABLETS BY M OUTH AT BEDTIME NEEDED for 30 Not-Taking Furosemide 40 MG 1 tablet Orally twice a day for 30 days Active Vitamin D 5000 1 tablet Orally Once a day Not-Taking Glucometer as directed Dx: e11.9 _ for 99 days Sep, 9 Active CPAP mask as directed needs new CPAP mask pillow Dx: G47.33 Apr, Active Venlafaxine HCl ER 37.5 MG TAKE ONE CAPSULE BY MOUTH EVERY D AY WITH FOOD for 30 Not-Taking hydrOXYzine HCl 25 MG TAKE 1-2 TABLETS BY MOUTH 30 MINUTES BEFOR E BED for 30 Not-Taking CPAP PANNY @ bedtime Active Lancets - as directed dx: e11.9 once a day and as needed f or 30 days Sep, Active Test Strips - as directed dx: e11.9 once a day and as needed f or 30 Days Sep, Active Vitamin B-12 1000 MCG 1 tablet Orally Once a day Not-Taking Triamcinolone Acetonide 0.025 % 1 application External ly Once a day for 14 day(s) Mar, Active Lisinopril-hydroCHLOROthiazide 20-25 MG 1 tablet Orally Once a day for 30 Days Not-Taking FreeStyle Lite - as directed Glucometer -Free Style Lite Dx E11. 9 for 99 days Sep, Active Protonix 40 MG 1 tablet Orally Once a day for 30 days Active Miconazole - as directed topically twice daily for 30 Days Mar, Active Anoro Ellipta umeclidinium 62.5 mcg and vilanterol 25 mcg 1 inhalation oral once daily for 30 Days Mar, Active Ramelteon 8 MG 1 tablet at bedtime as needed Orally Once a day for 30 days Active Tylenol 8 Hour Arthritis Pain 650 MG 2 tablets as need ed Orally every 8 hrs for 30 days Active Melatonin 5 MG 2 tablet in the evening Orally Once a day OTC Unknown FLUoxetine HCl 20 MG 3 tablets Orally Once a day for 30 day(s) Nov, Unknown Gabapentin 100 MG 1 capsule Orally three times a day for 30 day( s) May, Active busPIRone HCl 7.5 MG TAKE ONE TABLET BY MOUTH TWICE A DAY NEEDED for 30 Not-Taking Xarelto 20 mg 1 tab orally once daily for 30 days duplicate Not-Taking Xarelto 20 MG 1 tablet with food Orally Once a day for 30 days Nov, Active Scooter Chair as directed Electric [employer] W heel Chair XL Dx E66.01 , R06.09 for 99 days February, Active Walker - as directed 4Wheeled, with s eat. Large size, with hand professor of biostatistics, and breaks Dx. E66.01 for 99 days Jul, Ac tive Magnesium Oxide 400 (241.3 Mg) MG TAKE ONE TABLET BY M OUTH TWICE A DAY WITH FOOD for 30 Active Flonase Allergy Relief 50 MCG/ACT 1 spray in each nost ril Nasally Once a day for 30 days Active medroxyPROGESTERone Acetate 10 MG 1 tablet with food O rally Twice daily for 30 days Active Singulair 10 MG 1 tablet in the evening Orally Once a day for 30 Days Active CPAP mask as directed please include n ecessary tubing as well Dx: G47.33 for 99 days Dec, Active Fluoxetine 20 MG 2 capsule in the morning Orally Once a d ay for 30 days duplicate Not-Taking Fluoxetine 20 MG 2 capsule in the morning Orally Once a day for 90 da ys Unknown Simvastatin 10 MG 1 tablet in the evening Orally Once a day for 30 da ys Not-Taking Lisinopril-hydroCHLOROthiazide 20-25 MG 1 tablet Orally Once a day for 30 days duplicate Not-Taking Proventil HFA 108 (90 Base) MCG/ACT 2 puffs Inhalation every 4 hrs as needed for 30 Days Active PROCEDURES No Information RESULTS No Results REASON FOR VISIT verifyy apt MEDICAL (GENERAL) HISTORY Type Description Date Medical History sleep apnea Medical History hypertension Medical History protein C deficiency Medical History depression Stopped following [facility] Medical History pulmonary embolism 12/29/2009 Medical History Congestive Heart Failure Medical History ECHO 2013 LVEF 60-65% Surgical History c-sections 1982,1985 Hospitalization History [facility] -Acute on chronic hypoxe karuna and hypercapnic resp failure 04/09-05/05/2021 Goals Section No Information Health Concerns No Information MEDICAL EQUIPMENT No Information MENTAL STATUS No Information FUNCTIONAL STATUS No Information ASSESSMENTS No Information PLAN OF TREATMENT Medication Medication Name Sig Start Date Stop Date Flonase Allergy Relief 50 MCG/ACT 1 spray in each nost ril Nasally Once a day for 30 days Proventil HFA 108 (90 Base) MCG/ACT 2 puffs Inhalation every 4 hrs as needed for 30 Days Tylenol 8 Hour Arthritis Pain 650 MG 2 tablets as need ed Orally every 8 hrs for 30 days Singulair 10 MG 1 tablet in the evening Orally Once a day for 30 Days metFORMIN HCl 500 MG 1 tablet with a meal Orally Twice daily for 30 days Metoprolol Tartrate 25 MG 1 tablet with food Orally th ree times daily for 30 days Gabapentin 100 MG 1 capsule Orally three times a day for 30 day( s) May, Xarelto 20 MG 1 tablet with food Orally Once a day for 30 days Nov, Furosemide 40 MG 1 tablet Orally twice a day for 30 days medroxyPROGESTERone Acetate 10 MG 1 tablet with food O rally Twice daily for 30 days Anoro Ellipta umeclidinium 62.5 mcg and vilanterol 25 mcg 1 inhalation oral once daily for 30 Days Mar, Protonix 40 MG 1 tablet Orally Once a day for 30 days Magnesium Oxide 400 (241.3 Mg) MG TAKE ONE TABLET BY M OUTH TWICE A DAY WITH FOOD for 30 Ramelteon 8 MG 1 tablet at bedtime as needed Orally Once a day for 30 days Next Appt Details Provider Name:Jahaira Driver, 2021-08-25 03:00:00 PM, [address] [facility], , [place], [address], Provider Name:Laura Lisa, 2021-09-06 01:20:00 PM, [address] [facility] [facility], , [place], [address], Insurance Providers Payer Name Payer Address Payer Phone Insured Name Patient Relati onship to Insured Coverage Start Date Coverage End Date PENDING SALE TO [facility] CLAIM[employer] DEPT [address] [place] [phone] MARLENY QUINONEZ 2019
--- OUTSIDE RECORDS SUMMARY | 2021-08-19 16:36 | CCD ---
Author Author [facility] Organization [facility] Address Unknown Phone Unavailable Care Team Providers Care Manager Of Pharmacy Name Role Phone Emily Santa Unavailable PROBLEMS Type Condition ICD9-CM Code UBS98-KE Code Onset Dates Condition S tatus W/U Status Risk SNOMED Code Notes Problem Congestive heart failure I50.9 Active confirmed 28566256 Problem Depression F32.9 Active confirmed 724441730 Problem Hypertension I10 Active confirmed 3605021 3 Problem Mammogram abnormal R92.8 Active confirmed 1 88718535 Problem Maxillary sinusitis, unspecified chronicity J32.0 Active confirmed 41415045 Problem Allergic rhinitis, unspecifi ed chronicity, unspecified seasonality, unspecified trigger J30.9 Active confirmed 26419471 Problem Hx pulmonary embolism Z86.711 Active confirmed 883895779 Problem BMI 60.0-69.9, adult Z68.44 Active confirmed 631107722 Problem Anxiety F41.9 Active confirmed 84823203 Problem Hypertriglyceridemia E78.1 Active confirmed 501886015 Problem Reactive airway disease J45.909 Active confirmed 147270484070 Problem Obstructive sleep apnea (adult) (pediatric) G47.33 Active confirmed 26838762 Problem Aortic valve sclerosis I35.8 Active confirmed 07759528 Problem Lumbago with sciatica, right side M54.41 Active confirmed 242558935 Problem Morbid obesity E66.01 Active confirmed 70881 6002 Problem Polyarthropathy M13.0 Active confirmed 3618 6002 Problem Irregular menstrual cycle N92.6 Active confirmed 10680000 Problem Abnormal bleeding in menstrual cycle N93.9 Act arun confirmed 181806545 Problem Insomnia, unspecified type G47.00 Active confirmed 913067477 Problem CHELA (obstructive sleep apnea) G47.33 Active confirm ed 41635206 Problem Acute and chronic respiratory failure with hypercapnia J96.22 Active confirmed 0545753814441 Problem Acute and chronic respiratory failure with hypoxia J96.21 Active confirmed 06934142473018 Problem Type 2 diabetes mellitus wit hout complication, unspecified whether filler leaf cutter long insulin use E11.9 Active confirmed 823220893 Problem Major depressive disorder, single episode, moderate F32.1 Active confirmed 877127704 Problem Osteoarthritis, unspecified osteoarthritis type, unspecified site M19.90 Active confirmed 961279181 Problem Hyperlipidemia, unspecified hyperlipidemia type E7 8.5 Active confirmed 17717877 Problem Diastolic dysfunction I51.9 Active confirmed 8234461 Problem Obesity hypoventilation syndrome E66.2 Active conf irmed 27062391 Problem Vaginal bleeding N93.9 Active confirmed 289 228887 Problem Nonrheumatic aortic valve stenosis I35.0 Activ e confirmed 295268881 Problem Pneumonia due to methicillin resistant Staphylococcus aureus, unspecified laterality, unspecified part of lung J15.212 A ctive confirmed 423306689657797 ALLERGIES Allergen (clinical drug ingredient) Drug/Non Drug Allergy do cumented on EMR Reaction Allergy Type Onset Date Status environmental allergies itchy,waterty eyes, Non Drug Aller gy Active ENCOUNTERS from 1960 to 2021-05-26 Encounter Location Date Provider Diagnosis [facility] [address] [facility] [phone] [place] [address] 11 May, 2021 Emily Kiet Morbid obesity E66.01 and Ob esity hypoventilation syndrome E66.2 IMMUNIZATIONS Vaccine Route Administration Date Status Influenza [...] Notes Start Da te End Date Status Furosemide 40 MG 1 tablet Orally twice a day for 30 days Active Vitamin D 5000 1 tablet Orally Once a day Not-Taking Trazodone HCl 50 MG TAKE ONE TO TWO TABLETS BY M OUTH AT BEDTIME NEEDED for 30 Not-Taking medroxyPROGESTERone Acetate 10 MG 1 tablet with food O rally Twice daily for 30 days Active Walker - as directed 4Wheeled, with s eat. Large size, with hand breakfast server, and breaks Dx. E66.01 for 99 days Jul, Ac tive Glucometer as directed Dx: e11.9 _ for 99 days Sep, 9 Active CPAP PANNY @ bedtime Active Lancets - as directed dx: e11.9 once a day and as needed f or 30 days Sep, Active hydrOXYzine HCl 25 MG TAKE 1-2 TABLETS BY MOUTH 30 MINUTES BEFOR E BED for 30 Not-Taking Metoprolol Tartrate 25 MG 1 tablet with food Orally th ree times daily for 30 days Active metFORMIN HCl 500 MG 1 tablet with a meal Orally Twice daily for 30 d ays Active Test Strips - as directed dx: e11.9 once a day and as needed f or 30 Days Sep, Active FreeStyle Lite - as directed Glucometer -Free Style Lite Dx E11. 9 for 99 days Sep, Active Triamcinolone Acetonide 0.025 % 1 application External ly Once a day for 14 day(s) Mar, Active CPAP mask as directed needs new CPAP mask pillow Dx: G47.33 Apr, Active Venlafaxine HCl ER 37.5 MG TAKE ONE CAPSULE BY MOUTH EVERY D AY WITH FOOD for 30 Not-Taking Protonix 40 MG 1 tablet Orally Once a day for 30 days Active Miconazole - as directed topically twice daily for 30 Days Mar, Active Vitamin B-12 1000 MCG 1 tablet Orally Once a day Not-Taking Ramelteon 8 MG 1 tablet at bedtime [...] a day for 30 day(s) Nov, Unknown Xarelto 20 MG 1 tablet with food Orally Once a day for 30 days Nov, Active Scooter Chair as directed [employer] W heel Chair XL Dx E66.01 , R06.09 for 99 days February, Active Xarelto 20 mg 1 tab orally once daily for 30 days duplicate Not-Taking Magnesium 400 MG 1 tablet with a meal Orally Twice daily for 30 days Active Lisinopril-hydroCHLOROthiazide 20-25 MG 1 tablet Orally Once a day for 30 Days Not-Taking busPIRone HCl 7.5 MG TAKE ONE TABLET BY MOUTH TWICE A DAY NEEDED for 30 Not-Taking Anoro Ellipta umeclidinium 62.5 mcg and vilanterol 25 mcg 1 inhalation oral once daily for 30 Days Mar, Active Flonase Allergy Relief 50 MCG/ACT 1 spray in each nost ril Nasally Once a day for 30 days Active Gabapentin 100 MG 1 capsule Orally three times a day for 30 day( s) May, Active Singulair 10 MG 1 tablet in [...] Information RESULTS No Results REASON FOR VISIT glucose meter/ portable O2 MEDICAL (GENERAL) HISTORY Type Description Date Medical History sleep apnea Medical History hypertension Medical History protein C deficiency Medical History depression Stopped following [facility] Medical History pulmonary embolism 12/29/2009 Medical History Congestive Heart Failure Medical History ECHO 2013 LVEF 60-65% Surgical History c-sections Hospitalization History [facility] -Acute on chronic hypoxe karuna and hypercapnic resp failure 04/09-05/05/2021 Goals Section No Information Health Concerns No Information MEDICAL EQUIPMENT No Information MENTAL STATUS No Information FUNCTIONAL STATUS No Information ASSESSMENTS Encounter Date Diagnosis Assessment Notes Treatment Notes Treatm ent Clinical Notes May, Morbid obesity (ICD-10 - E66.01) May, Obesity hypoventilation syndrome (ICD-10 - E66.2 ) PLAN OF TREATMENT Medication Medication Name Sig [...] oral once daily for 30 Days Mar, Ramelteon 8 MG 1 tablet at bedtime as needed Orally Once a day for 30 days Protonix 40 MG 1 tablet Orally Once a day for 30 days Next Appt Details Provider Name:Laura Lisa, 2021-07-19 01:00:00 PM, [address] [facility], , [place], [address], Provider Name:Jahaira Driver, 2021-08-25 03:00:00 PM, [address] [facility], , [place], [address], Insurance Providers Payer Name Payer Address Payer Phone Insured Name Patient Relati onship to Insured Coverage Start Date Coverage End Date [employer] DE[employer] [address] [facility] [phone] MARLENY QUINONEZ self 2019
--- OUTSIDE RECORDS SUMMARY | 2021-08-19 16:36 | CCD ---
Author Author [facility] Organization [facility] Address Unknown Phone Unavailable Care Team Providers Care Electrical Engineering Teacher Name Role Phone Emily Santa Unavailable PROBLEMS Type Condition ICD9-CM Code XVV51-NL Code Onset Dates Condition S tatus W/U Status Risk SNOMED Code Notes Problem Reactive airway disease J45.909 Active confirmed 170860277036 Problem Congestive heart failure I50.9 Active confirmed 59781246 Problem Hypertriglyceridemia E78.1 Active confirmed 192171273 Problem Depression F32.9 Active confirmed 496627995 Problem Hypertension I10 Active confirmed 1215043 3 Problem Maxillary sinusitis, unspecified chronicity J32.0 Active confirmed 13667639 Problem Mammogram abnormal R92.8 Active confirmed 1 76308150 Problem Abnormal bleeding in menstrual cycle N93.9 Act arun confirmed 216757039 Problem Insomnia, unspecified type G47.00 Active confirmed 725320834 Problem Diastolic dysfunction I51.9 Active confirmed 7458037 Problem Major depressive disorder, single episode, moderate F32.1 Active confirmed 582976640 Problem Obstructive sleep apnea (adult) (pediatric) G47.33 Active confirmed 19923544 Problem Aortic valve sclerosis I35.8 Active confirmed 98128284 Problem Lumbago with sciatica, right side M54.41 Active confirmed 196923683 Problem Morbid obesity E66.01 Active confirmed 55761 6002 Problem Polyarthropathy M13.0 Active confirmed 3618 6002 Problem Irregular menstrual cycle N92.6 Active confirmed 16595054 Problem Anxiety F41.9 Active confirmed 22861454 Problem BMI 60.0-69.9, adult Z68.44 Active confirmed 254975880 Problem CHELA (obstructive sleep apnea) G47.33 Active confirm ed 89420658 Problem Pneumonia due to methicillin resistant Staphylococcus aureus, unspecified laterality, unspecified part of lung J15.212 A ctive confirmed 452193412166152 Problem Hyperlipidemia, unspecified hyperlipidemia type E7 8.5 Active confirmed 93531070 Problem Nonrheumatic aortic valve stenosis I35.0 Activ e confirmed 638264141 Problem Hx pulmonary embolism Z86.711 Active confirmed 668802714 Problem Allergic rhinitis, unspecifi ed chronicity, unspecified seasonality, unspecified trigger J30.9 Active confirmed 30207024 Problem Acute and chronic respiratory failure with hypercapnia J96.22 Active confirmed 2372221325221 Problem Acute and chronic respiratory failure with hypoxia J96.21 Active confirmed 26683434915549 Problem Obesity hypoventilation syndrome E66.2 Active conf irmed 89921821 Problem Vaginal bleeding N93.9 Active confirmed 289 176957 ALLERGIES Allergen (clinical drug ingredient) Drug/Non Drug Allergy do cumented on EMR Reaction Allergy Type Onset Date Status environmental allergies itchy,waterty eyes, Non Drug Aller gy Active ENCOUNTERS from 1960 to 2021-05-24 Encounter Location Date Provider Diagnosis [place] [id number] [facility] [phone] [place] [address] 11 May, 2021 Emily Santa IMMUNIZATIONS Vaccine Route Administration Date Status Influenza [...] Notes Start Da te End Date Status CPAP PANNY @ bedtime Active Lisinopril-hydroCHLOROthiazide 20-25 MG 1 tablet Orally Once a day for 30 Days Not-Taking Protonix 40 MG 1 tablet Orally Once a day Active Melatonin 5 MG 2 tablet in the evening Orally Once a day OTC Unknown Vitamin D 5000 1 tablet Orally Once a day Not-Taking Xarelto 20 MG 1 tablet with food Orally Once a day Nov, Active Fluoxetine 20 MG 2 capsule in the morning Orally Once a day for 90 da ys Unknown metFORMIN HCl 500 MG 1 tablet with a meal Orally Twice daily Active Ramelteon 8 MG 1 tablet at bedtime as needed Orally Once a day Active FLUoxetine HCl 20 MG 3 tablets Orally Once a day for 30 day(s) Nov, Unknown Furosemide 40 MG 1 tablet Orally Once a day Active Metoprolol Tartrate 25 MG 1 tablet with food Orally three times daily Active CPAP mask as directed please include n ecessary tubing as well Dx: G47.33 for 99 days Dec, Active busPIRone HCl 7.5 MG TAKE ONE TABLET BY MOUTH TWICE A DAY NEEDED for 30 Not-Taking Scooter Chair as directed Electric Power W heel Chair XL Dx E66.01 , R06.09 for 99 days February, Active Tylenol 8 Hour Arthritis Pain 650 MG 2 tablets as needed Orally jonathan ry 8 hrs Active Trazodone HCl 50 MG TAKE ONE TO TWO TABLETS BY M OUTH AT BEDTIME NEEDED for 30 Not-Taking hydrOXYzine HCl 25 MG TAKE 1-2 TABLETS BY MOUTH 30 MINUTES BEFOR E BED for 30 Not-Taking Anoro Ellipta umeclidinium 62.5 mcg and vilanterol 25 mcg 1 inhalation oral once daily for 30 Days Mar, Active Venlafaxine HCl ER 37.5 MG TAKE ONE CAPSULE BY MOUTH EVERY D AY WITH FOOD for 30 Not-Taking Proventil HFA 108 (90 Base) MCG/ACT 2 puffs Inhalation every 4 hrs as needed for 30 Days Active Test Strips - as directed dx: e11.9 once a day and as needed f or 30 Days Sep, Active Xarelto 20 mg 1 tab orally once daily for 30 days duplicate Not-Taking Miconazole - as directed topically twice daily for 30 Days Mar, Active Walker - as directed 4Wheeled, with s eat. Large size, with hand aircraft assembler, and breaks Dx. E66.01 for 99 days Jul, Ac tive Lancets - as directed dx: e11.9 once a day and as needed f or 30 days Sep, Active Flonase Allergy Relief 50 MCG/ACT 1 spray in each nost ril Nasally Once a day for 30 days Active Glucometer as directed Dx: e11.9 _ for 99 days Sep, 9 Active CPAP mask as directed needs new CPAP mask pillow Dx: G47.33 Apr, Active Magnesium 400 MG 1 tablet with a meal Orally Twice daily for 30 days Active Fluoxetine 20 MG 2 capsule in the morning Orally Once a d ay for 30 days duplicate Not-Taking Triamcinolone Acetonide 0.025 % 1 application External ly Once a day for 14 day(s) Mar, Active FreeStyle Lite - as directed Glucometer -Free Style Lite Dx E11. 9 for 99 days Sep, Active Simvastatin 10 MG 1 tablet in the evening Orally Once a day for 30 da ys Not-Taking Lisinopril-hydroCHLOROthiazide 20-25 MG 1 tablet Orally Once a day for 30 days duplicate Not-Taking Singulair 10 MG 1 tablet in the evening Orally Once a day for 30 Days Active Vitamin B-12 1000 MCG 1 tablet Orally Once a day Not-Taking medroxyPROGESTERone Acetate 10 MG 1 tablet with food O rally Twice daily for 10 days Active PROCEDURES No Information RESULTS No Results REASON FOR VISIT OT Eval MEDICAL (GENERAL) HISTORY Type Description Date Medical History sleep apnea Medical History hypertension Medical History protein C deficiency Medical History depression Stopped following Sara [facility] Medical History pulmonary embolism 12/29/2009 Medical History Congestive Heart Failure Medical History ECHO 2013 LVEF 60-65% Surgical History c-sections 1982,1984 Hospitalization History [facility] -Acute on chronic hypoxe karuna and hypercapnic resp failure 04/09-05/05/2021 Goals Section No Information Health Concerns No Information MEDICAL EQUIPMENT No Information MENTAL STATUS No Information FUNCTIONAL STATUS No Information ASSESSMENTS No Information PLAN OF TREATMENT Medication Medication Name Sig Start Date Stop Date Furosemide 40 MG 1 tablet Orally Once a day medroxyPROGESTERone Acetate 10 MG 1 tablet with food O rally Twice daily for 10 days Xarelto 20 MG 1 tablet with food Orally Once a day Nov, 1 Magnesium 400 MG 1 tablet with a meal Orally Twice daily for 30 days Metoprolol Tartrate 25 MG 1 tablet with food Orally three times daily Next Appt Details Provider Name:Jahaira Sortoon, 2021-05-25 02:45:00 PM, [address] [facility], , [place], [address], Provider Name:Laura Lisa, 2021-07-19 01:00:00 PM, [address] [facility], , [place], [address], Insurance Providers Payer Name Payer Address Payer Phone Insured Name Patient Relati onship to Insured Coverage Start Date Coverage End Date [facility] CLAIMS DEPT [address] [facility] [phone] MARLENY QUINONEZ 2019
--- OUTSIDE RECORDS SUMMARY | 2021-08-19 16:36 | CCD ---
Author Author [facility] Organization [facility] Address Unknown Phone Unavailable Care Team Providers Care Boatbuilder Supervisor Name Role Phone Jahaira Driver Unavailable PROBLEMS Type Condition ICD9-CM Code BIG36-AN Code Onset Dates Condition S tatus W/U Status Risk SNOMED Code Notes Problem Congestive heart failure I50.9 Active confirmed 07914656 Problem Depression F32.9 Active confirmed 695834539 Problem Hypertension I10 Active confirmed 9618585 3 Problem Mammogram abnormal R92.8 Active confirmed 1 41699464 Problem Maxillary sinusitis, unspecified chronicity J32.0 Active confirmed 97896491 Problem Allergic rhinitis, unspecifi ed chronicity, unspecified seasonality, unspecified trigger J30.9 Active confirmed 56660163 Problem Hx pulmonary embolism Z86.711 Active confirmed 812296035 Problem BMI 60.0-69.9, adult Z68.44 Active confirmed 163836776 Problem Anxiety F41.9 Active confirmed 55893922 Problem Hypertriglyceridemia E78.1 Active confirmed 164939337 Problem Reactive airway disease J45.909 Active confirmed 835735043761 Problem Obstructive sleep apnea (adult) (pediatric) G47.33 Active confirmed 15977009 Problem Aortic valve sclerosis I35.8 Active confirmed 06700982 Problem Lumbago with sciatica, right side M54.41 Active confirmed 131006433 Problem Morbid obesity E66.01 Active confirmed 56651 6002 Problem Polyarthropathy M13.0 Active confirmed 3618 6002 Problem Irregular menstrual cycle N92.6 Active confirmed 34562541 Problem Abnormal bleeding in menstrual cycle N93.9 Act arun confirmed 222471201 Problem Insomnia, unspecified type G47.00 Active confirmed 331806336 Problem CHELA (obstructive sleep apnea) G47.33 Active confirm ed 06733460 Problem Acute and chronic respiratory failure with hypercapnia J96.22 Active confirmed 8505957725007 Problem Acute and chronic respiratory failure with hypoxia J96.21 Active confirmed 48029367056559 Problem Type 2 diabetes mellitus wit hout complication, unspecified whether [facility] insulin use E11.9 Active confirmed 332376911 Problem Major depressive disorder, single episode, moderate F32.1 Active confirmed 214175833 Problem Osteoarthritis, unspecified osteoarthritis type, unspecified site M19.90 Active confirmed 613464681 Problem Hyperlipidemia, unspecified hyperlipidemia type E7 8.5 Active confirmed 26146210 Problem Diastolic dysfunction I51.9 Active confirmed 8469084 Problem Obesity hypoventilation syndrome E66.2 Active conf irmed 74998293 Problem Vaginal bleeding N93.9 Active confirmed 289 459718 Problem Nonrheumatic aortic valve stenosis I35.0 Activ e confirmed 496840683 Problem Pneumonia due to methicillin resistant Staphylococcus aureus, unspecified laterality, unspecified part of lung J15.212 A ctive confirmed 431396861547862 ALLERGIES Allergen (clinical drug ingredient) Drug/Non Drug Allergy do cumented on EMR Reaction Allergy Type Onset Date Status environmental allergies itchy,waterty eyes, Non Drug Aller gy Active ENCOUNTERS from 1960 to 2021-06-15 Encounter Location Date Provider Diagnosis [facility] [id number] [place] [address] [place] [address] 07 Jun, 2021 Jahaira Driver Congestive heart failure I50 .9 IMMUNIZATIONS Vaccine Route Administration Date Status Influenza [...] Twice daily for 30 d ays Active Magnesium 400 MG 1 tablet with a meal Orally Twice daily for 30 days Active Furosemide 40 MG 1 tablet Orally twice a day for 30 days Active Vitamin D 5000 1 tablet Orally Once a day Not-Taking Trazodone HCl 50 MG TAKE ONE TO TWO TABLETS BY M OUTH AT BEDTIME NEEDED for 30 Not-Taking CPAP mask as directed needs new CPAP [...] with s eat. Large size, with hand general office associate, and breaks Dx. E66.01 for 99 days Jul, Ac tive Glucometer as directed Dx: e11.9 _ for 99 days Sep, 9 Active Flonase Allergy Relief 50 MCG/ACT 1 [...] Information RESULTS No Results REASON FOR VISIT possible refill? MEDICAL (GENERAL) HISTORY Type Description Date Medical [...] Notes Treatment Notes Treatm ent Clinical Notes Jun, Congestive heart failure (ICD-10 - I50.9) PLAN OF TREATMENT Medication Medication Name Sig [...] Once a day for 30 days Magnesium 400 MG 1 tablet with a meal Orally Twice daily for 30 days Ramelteon 8 MG 1 tablet at bedtime as needed Orally Once a day for 30 days Next Appt Details Provider Name:Laura Lisa, 2021-07-19 01:00:00 PM, [address] [facility], , [place], [address], Provider Name:Jahaira Driver, 2021-08-25 03:00:00 PM, [address] [facility], , [place], [address], Insurance Providers Payer Name Payer Address Payer Phone Insured Name Patient Relati onship to Insured Coverage Start Date Coverage End Date [id number] [facility] [employer] [facility] [employer] [facility] [employer] [employer] DE[facility] [address] [facility] [phone] MARLENY QUINONEZ self 2019
--- OUTSIDE RECORDS SUMMARY | 2021-08-19 16:36 | CCD ---
Author Author [facility] Organization 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 Name Role Phone Jahaira Driver Unavailable PROBLEMS Type Condition ICD9-CM Code ACT37-VH Code Onset Dates Condition S tatus W/U Status Risk SNOMED Code Notes Problem Congestive heart failure I50.9 Active confirmed 33938815 Problem Depression F32.9 Active confirmed 544397968 Problem Hypertension I10 Active confirmed 5794645 3 Problem Mammogram abnormal R92.8 Active confirmed 1 22995315 Problem Maxillary sinusitis, unspecified chronicity J32.0 Active confirmed 94340912 Problem Allergic rhinitis, unspecifi ed chronicity, unspecified seasonality, unspecified trigger J30.9 Active confirmed 17107530 Problem Hx pulmonary embolism Z86.711 Active confirmed 435953359 Problem BMI 60.0-69.9, adult Z68.44 Active confirmed 297328334 Problem Anxiety F41.9 Active confirmed 34012070 Problem Hypertriglyceridemia E78.1 Active confirmed 679711604 Problem Reactive airway disease J45.909 Active confirmed 120814163625 Problem Obstructive sleep apnea (adult) (pediatric) G47.33 Active confirmed 85619872 Problem Aortic valve sclerosis I35.8 Active confirmed 78899204 Problem Lumbago with sciatica, right side M54.41 Active confirmed 028895783 Problem Morbid obesity E66.01 Active confirmed 82925 6002 Problem Polyarthropathy M13.0 Active confirmed 3618 6002 Problem Irregular menstrual cycle N92.6 Active confirmed 94005792 Problem Abnormal bleeding in menstrual cycle N93.9 Act arun confirmed 181268646 Problem Insomnia, unspecified type G47.00 Active confirmed 419934077 Problem CHELA (obstructive sleep apnea) G47.33 Active confirm ed 62280717 Problem Acute and chronic respiratory failure with hypercapnia J96.22 Active confirmed 4469682955491 Problem Acute and chronic respiratory failure with hypoxia J96.21 Active confirmed 59790244184149 Problem Type 2 diabetes mellitus wit hout complication, unspecified whether skilled nursing insulin use E11.9 Active confirmed 950460716 Problem Major depressive disorder, single episode, moderate F32.1 Active confirmed 244473670 Problem Osteoarthritis, unspecified osteoarthritis type, unspecified site M19.90 Active confirmed 470856086 Problem Hyperlipidemia, unspecified hyperlipidemia type E7 8.5 Active confirmed 68939310 Problem Diastolic dysfunction I51.9 Active confirmed 5147999 Problem Obesity hypoventilation syndrome E66.2 Active conf irmed 80629636 Problem Vaginal bleeding N93.9 Active confirmed 289 143592 Problem Nonrheumatic aortic valve stenosis I35.0 Activ e confirmed 858335811 Problem Pneumonia due to methicillin resistant Staphylococcus aureus, unspecified laterality, unspecified part of lung J15.212 A ctive confirmed 002734071436086 ALLERGIES Allergen (clinical drug ingredient) Drug/Non Drug Allergy do cumented on EMR Reaction Allergy Type Onset Date Status environmental allergies itchy,waterty eyes, Non Drug Aller gy Active ENCOUNTERS from 1960 to 2021-05-31 Encounter Location Date Provider Diagnosis [facility] [id number] [place] [address] [place] [address] 18 May, 2021 Jahaira Driver Type 2 diabetes mellitus wit hout complication, unspecified whether skilled nursing insulin use E11.9 ; Reactive airway disease J45.909 ; Allergic rhinitis, unspecified chronicity, unspecified seasonality, unspecified trigger J30.9 ; Hypoxia R09.02 ; Pain, joint, multiple sites M25.50 ; Vaginal bleeding N93.9 ; Congestive heart failure I50.9 ; Osteoarthritis, unspecified osteoarthritis type, unspecified site M19.90 and Encounter to establish care with new doctor Z76.89 IMMUNIZATIONS Vaccine Route Administration Date Status Influenza [...] REASON FOR REFERRAL No Information VITAL SIGNS Weight 388 lbs May, Height 68 in May, BMI 58.99 kg/m2 May, Heart Rate 99 /min May, Respiratory Rate 21 /min May, Temperature 99.2 degrees Fahrenheit May, Oximetry 99 on 3L May, Blood pressure systolic 150 mm Hg May, Blood pressure diastolic 78 mm Hg May, MEDICATIONS Medication SIG (Take, Route, Frequency, Duration) [...] with s eat. Large size, with hand airport guide, and breaks Dx. E66.01 for 99 days [...] Information RESULTS No Results REASON FOR VISIT [place] [facility] MEDICAL (GENERAL) HISTORY Type Description Date Medical [...] Treatment Notes Treatm ent Clinical Notes May, Type 2 diabetes mellitus wit hout complication, unspecified whether skilled nursing insulin use (ICD-10 - E11.9) Last [id number] in 08/2019 was 7.0. Will re-check at this time. Pt takes Metformin 500mg BID. Denies insulin or any other med for DM. May, Reactive airway disease (ICD-10 - J45.909) May, Allergic rhinitis, unspecifi ed chronicity, unspecified seasonality, unspecified trigger (ICD-10 - J30.9) May, Hypoxia (ICD-10 - R09.02) Patient remains on 3 L nasal cannula which was started upon hospital discharge. Patient has follow-up with Thermoscrew Operator on 06/06/21. Advised continued use of oxygen until she can be evaluated by Pulm. May, Pain, joint, multiple sites (ICD-10 - M25.50) May, Vaginal bleeding (ICD-10 - N93.9) Patient reports her postmenopausal bleeding is well controlled on current progesterone pill. Denies any recent heavy bleeding. She continues to take Xarelto as prescribed. Pt has appt with MOLDING MACHINE OPERATOR in July 2021 (2 months from now). May, Congestive heart failure (ICD-10 - I50.9) Patient reports her ID doctor sent out referral for cardiology (Dr. Lujan). Has not received appointment yet. Advised patient to follow-up with provider that sent referral if she does not get an appointment within the next 2 weeks. May, Osteoarthritis, unspecified osteoarthritis type, unspecified site (ICD-10 - M19.90) Patient reports her osteoarthritis pain is not well controlled on the Tylenol. She was advised against NSAIDs due to recent history of heavy vaginal bleeding. Patient inquired about gabapentin; will start 100 mg 3 times daily, and reassess if this helps with the pain at next visit. May, Encounter to establish care with new doctor (ICD -10 - Z76.89) May, Other Will discuss ro utine preventative screenings at next visit. PLAN OF TREATMENT Medication Medication Name Sig [...] Orally Once a day for 30 days Treatment Notes Assessment Notes Clinical Notes Type 2 diabetes mellitus without complic ation, unspecified whether skilled nursing insulin use Last [id number] in 9 was 7.0. Will re-check at this time. Pt takes Metformin 500mg BID. Denies insulin or any other med for DM. Hypoxia Patient remains on 3 L nasal cannula which was started upon hospital discharge. Patient has follow-up with Thermoscrew Operator on 06/06/21. Advised continued use of oxygen until she can be evaluated by Pulm. Vaginal bleeding Patient reports her postmenopausal bleeding is well controlled on current progesterone pill. Denies any recent heavy bleeding. She continues to take Xarelto as prescribed. Pt has appt with MOLDING MACHINE OPERATOR in July 2021 (2 months from now). Congestive heart failure Patient reports her ID doctor sent out referral for cardiology (Dr. Lujan). Has not received appointment yet. Advised patient to follow-up with provider that sent referral if she does not get an appointment within the next 2 weeks. Osteoarthritis, unspecified osteoarthritis type, unspecified site Patient reports her osteoarthritis pain is not well controlled on the Tylenol. She was advised against NSAIDs due to recent history of heavy vaginal bleeding. Patient inquired about gabapentin; will start 100 mg 3 times daily, and reassess if this helps with the pain at next visit. Treatment Notes Test Name Order Date HEMOGLOBIN A1c 2021-05-25 Next Appt Details 3 Months Reason:Diabetes f/u, discuss ro utine screenings Provider Name:Laura Lisa, 2021-07-19 01:00:00 PM, [address] [facility], , [place], [address], Provider Name:Jahaira Driver, 2021-08-25 03:00:00 PM, [address] [facility], , [place], [address], Follow Up:3 MonthsDiabetes f/u, discuss routine screenings Insurance Providers Payer Name Payer Address Payer Phone Insured Name Patient Relati onship to Insured Coverage Start Date Coverage End Date [facility] CLAIMS DEPT [address] [facility] [phone] MARLENY QUINONEZ 2019
--- OUTSIDE RECORDS SUMMARY | 2021-08-19 16:36 | CCD ---
Author Author [facility] Organization [facility] Address Unknown Phone Unavailable Care Team Providers Care Interior Design Principal Name Role Phone Jahaira Driver Unavailable PROBLEMS Type Condition ICD9-CM Code [id number] Code Onset Dates Condition S tatus W/U Status Risk SNOMED Code Notes Problem Congestive heart failure I50.9 Active confirmed 75261260 Problem Depression F32.9 Active confirmed 996238499 Problem Hypertension I10 Active confirmed 6966772 3 Problem Mammogram abnormal R92.8 Active confirmed 1 54743286 Problem Maxillary sinusitis, unspecified chronicity J32.0 Active confirmed 32394645 Problem Allergic rhinitis, unspecifi ed chronicity, unspecified seasonality, unspecified trigger J30.9 Active confirmed 04103695 Problem Hx pulmonary embolism Z86.711 Active confirmed 264369155 Problem BMI 60.0-69.9, adult Z68.44 Active confirmed 646302247 Problem Anxiety F41.9 Active confirmed 36648267 Problem Hypertriglyceridemia E78.1 Active confirmed 475603405 Problem Reactive airway disease J45.909 Active confirmed 754992780905 Problem Obstructive sleep apnea (adult) (pediatric) G47.33 Active confirmed 44061612 Problem Aortic valve sclerosis I35.8 Active confirmed 06976674 Problem Lumbago with sciatica, right side M54.41 Active confirmed 178378808 Problem Morbid obesity E66.01 Active confirmed 97905 6002 Problem Polyarthropathy M13.0 Active confirmed 3618 6002 Problem Irregular menstrual cycle N92.6 Active confirmed 03874386 Problem Abnormal bleeding in menstrual cycle N93.9 Act arun confirmed 377603403 Problem Insomnia, unspecified type G47.00 Active confirmed 182781474 Problem CHELA (obstructive sleep apnea) G47.33 Active confirm ed 89377290 Problem Acute and chronic respiratory failure with hypercapnia J96.22 Active confirmed 7554487987969 Problem Acute and chronic respiratory failure with hypoxia J96.21 Active confirmed 15514636665926 Problem Type 2 diabetes mellitus wit hout complication, unspecified whether detention insulin use E11.9 Active confirmed 505930446 Problem Major depressive disorder, single episode, moderate F32.1 Active confirmed 303148508 Problem Osteoarthritis, unspecified osteoarthritis type, unspecified site M19.90 Active confirmed 422449274 Problem Hyperlipidemia, unspecified hyperlipidemia type E7 8.5 Active confirmed 34547313 Problem Diastolic dysfunction I51.9 Active confirmed 2446734 Problem Obesity hypoventilation syndrome E66.2 Active conf irmed 10612301 Problem Vaginal bleeding N93.9 Active confirmed 289 178688 Problem Nonrheumatic aortic valve stenosis I35.0 Activ e confirmed 127325579 Problem Pneumonia due to methicillin resistant Staphylococcus aureus, unspecified laterality, unspecified part of lung J15.212 A ctive confirmed 697992128239005 ALLERGIES Allergen (clinical drug ingredient) Drug/Non Drug Allergy do cumented on EMR Reaction Allergy Type Onset Date Status environmental allergies itchy,waterty eyes, Non Drug Aller gy Active ENCOUNTERS from 1960 to 2021-05-26 Encounter Location Date Provider Diagnosis [facility] [id number] [place] [address] [place] [address] 18 May, 2021 Jahaira Driver IMMUNIZATIONS Vaccine Route Administration Date Status Influenza [...] with s eat. Large size, with hand pharmacoepidemiologist, and breaks Dx. E66.01 for 99 days [...] Information RESULTS No Results REASON FOR VISIT transfer appt MEDICAL (GENERAL) HISTORY Type Description Date Medical [...] Provider Name:Laura Lisa, 2021-07-19 01:00:00 PM, [address] [facility], , [place], [address], Provider Name:Jahaira Driver, 2021-08-25 03:00:00 PM, [address] [facility], , [place], [address], Insurance Providers Payer Name Payer Address Payer Phone Insured Name Patient Relati onship to Insured Coverage Start Date Coverage End Date [facility]POR[facility] CLAIMS DEPT [address] [facility] [phone] MARLENY QUINONEZ 2019
--- OUTSIDE RECORDS SUMMARY | 2021-08-19 16:36 | CCD ---
Author Author [facility] Organization [facility] Address Unknown Phone Unavailable Care Team Providers Care Neurological Surgery Teacher Name Role Phone Jahaira Driver Unavailable PROBLEMS Type Condition ICD9-CM Code [id number] Code Onset Dates Condition S tatus W/U Status Risk SNOMED Code Notes Problem Congestive heart failure I50.9 Active confirmed 18256793 Problem Depression F32.9 Active confirmed 610359268 Problem Hypertension I10 Active confirmed 7198863 3 Problem Mammogram abnormal R92.8 Active confirmed 1 59436767 Problem Maxillary sinusitis, unspecified chronicity J32.0 Active confirmed 70635523 Problem Allergic rhinitis, unspecifi ed chronicity, unspecified seasonality, unspecified trigger J30.9 Active confirmed 09516895 Problem Hx pulmonary embolism Z86.711 Active confirmed 484474966 Problem BMI 60.0-69.9, adult Z68.44 Active confirmed 167188599 Problem Anxiety F41.9 Active confirmed 52478708 Problem Hypertriglyceridemia E78.1 Active confirmed 688658517 Problem Reactive airway disease J45.909 Active confirmed 364306437608 Problem Obstructive sleep apnea (adult) (pediatric) G47.33 Active confirmed 26521467 Problem Aortic valve sclerosis I35.8 Active confirmed 12528644 Problem Lumbago with sciatica, right side M54.41 Active confirmed 293578603 Problem Morbid obesity E66.01 Active confirmed 49933 6002 Problem Polyarthropathy M13.0 Active confirmed 3618 6002 Problem Irregular menstrual cycle N92.6 Active confirmed 27749324 Problem Abnormal bleeding in menstrual cycle N93.9 Act arun confirmed 685255960 Problem Insomnia, unspecified type G47.00 Active confirmed 507936924 Problem CHELA (obstructive sleep apnea) G47.33 Active confirm ed 28632388 Problem Acute and chronic respiratory failure with hypercapnia J96.22 Active confirmed 2920888886778 Problem Acute and chronic respiratory failure with hypoxia J96.21 Active confirmed 81072299763376 Problem Type 2 diabetes mellitus wit hout complication, unspecified whether nursing home insulin use E11.9 Active confirmed 365931875 Problem Major depressive disorder, single episode, moderate F32.1 Active confirmed 846612595 Problem Osteoarthritis, unspecified osteoarthritis type, unspecified site M19.90 Active confirmed 523311069 Problem Hyperlipidemia, unspecified hyperlipidemia type E7 8.5 Active confirmed 71589173 Problem Diastolic dysfunction I51.9 Active confirmed 1679970 Problem Obesity hypoventilation syndrome E66.2 Active conf irmed 81888999 Problem Vaginal bleeding N93.9 Active confirmed 289 735433 Problem Nonrheumatic aortic valve stenosis I35.0 Activ e confirmed 246181788 Problem Pneumonia due to methicillin resistant Staphylococcus aureus, unspecified laterality, unspecified part of lung J15.212 A ctive confirmed 707504005537328 ALLERGIES Allergen (clinical drug ingredient) Drug/Non Drug Allergy do cumented on EMR Reaction Allergy Type Onset Date Status environmental allergies itchy,waterty eyes, Non Drug Aller gy Active ENCOUNTERS from 1960 to 2021-06-01 Encounter Location Date Provider Diagnosis [facility] [id number] [place] [address] [place] [address] May, Jahaira Driver IMMUNIZATIONS Vaccine Route Administration Date [...] with s eat. Large size, with hand medicine and health service manager, and breaks Dx. E66.01 for 99 days [...] Information RESULTS No Results REASON FOR VISIT Anxiety and Depression Meds MEDICAL (GENERAL) HISTORY Type Description Date Medical [...] Provider Name:Laura Lisa, 2021-07-19 01:00:00 PM, [address] [facility], , [place], [address], Provider Name:Jahaira Driver, 2021-08-25 03:00:00 PM, [address] [facility], , [place], [address], Insurance Providers Payer Name Payer Address Payer Phone Insured Name Patient Relati onship to Insured Coverage Start Date Coverage End Date [facility]PORATE CLAIMS DEPT [address] [facility] [phone] MARLENY QUINONEZ 2019
--- OUTSIDE RECORDS SUMMARY | 2021-08-19 16:36 | CCD ---
Author Author [facility] Organization [facility] Address Unknown Phone Unavailable Care Team Providers Care Online Marketer Name Role Phone Laura Lisa Unavailable PROBLEMS Type Condition ICD9-CM Code [id number] Code Onset Dates Condition S tatus W/U Status Risk SNOMED Code Notes Problem Congestive heart failure I50.9 Active confirmed 60907357 Problem Depression F32.9 Active confirmed 724159657 Problem Hypertension I10 Active confirmed 5840737 3 Problem Mammogram abnormal R92.8 Active confirmed 1 03487492 Problem Maxillary sinusitis, unspecified chronicity J32.0 Active confirmed 69161063 Problem Allergic rhinitis, unspecifi ed chronicity, unspecified seasonality, unspecified trigger J30.9 Active confirmed 66520378 Problem Hx pulmonary embolism Z86.711 Active confirmed 540621374 Problem BMI 60.0-69.9, adult Z68.44 Active confirmed 164258501 Problem Anxiety F41.9 Active confirmed 77906256 Problem Hypertriglyceridemia E78.1 Active confirmed 681567504 Problem Reactive airway disease J45.909 Active confirmed 266337417883 Problem Obstructive sleep apnea (adult) (pediatric) G47.33 Active confirmed 72880254 Problem Aortic valve sclerosis I35.8 Active confirmed 63309524 Problem Lumbago with sciatica, right side M54.41 Active confirmed 374730491 Problem Morbid obesity E66.01 Active confirmed 59411 6002 Problem Polyarthropathy M13.0 Active confirmed 3618 6002 Problem Irregular menstrual cycle N92.6 Active confirmed 06475229 Problem Abnormal bleeding in menstrual cycle N93.9 Act arun confirmed 006018104 Problem Insomnia, unspecified type G47.00 Active confirmed 161251294 Problem CHELA (obstructive sleep apnea) G47.33 Active confirm ed 85369968 Problem Acute and chronic respiratory failure with hypercapnia J96.22 Active confirmed 5751781273166 Problem Acute and chronic respiratory failure with hypoxia J96.21 Active confirmed 81230357203443 Problem Type 2 diabetes mellitus wit hout complication, unspecified whether alf insulin use E11.9 Active confirmed 668469214 Problem Major depressive disorder, single episode, moderate F32.1 Active confirmed 196252446 Problem Osteoarthritis, unspecified osteoarthritis type, unspecified site M19.90 Active confirmed 230761816 Problem Hyperlipidemia, unspecified hyperlipidemia type E7 8.5 Active confirmed 48433134 Problem Diastolic dysfunction I51.9 Active confirmed 1344420 Problem Obesity hypoventilation syndrome E66.2 Active conf irmed 57416074 Problem Vaginal bleeding N93.9 Active confirmed 289 783833 Problem Nonrheumatic aortic valve stenosis I35.0 Activ e confirmed 859896457 Problem Pneumonia due to methicillin resistant Staphylococcus aureus, unspecified laterality, unspecified part of lung J15.212 A ctive confirmed 473870339619501 ALLERGIES Allergen (clinical drug ingredient) Drug/Non Drug Allergy do cumented on EMR Reaction Allergy Type Onset Date Status environmental allergies itchy,waterty eyes, Non Drug Aller gy Active ENCOUNTERS from 1960 to 2021-06-20 Encounter Location Date Provider Diagnosis [facility] [phone] [place] [address] May, Laura Lisa IMMUNIZATIONS Vaccine Route Administration Date [...] with s eat. Large size, with hand metal miner, and breaks Dx. E66.01 for 99 days [...] Information RESULTS No Results REASON FOR VISIT appointment MEDICAL (GENERAL) HISTORY Type Description Date Medical History sleep apnea Medical History hypertension Medical History protein C deficiency Medical History depression Stopped following DRafia Herheim Medical History pulmonary embolism 12/29/2009 Medical [...] Provider Name:Laura Lisa, 2021-07-19 01:00:00 PM, [address] [facility], , [place], [address], Provider Name:Jahaira Driver, 2021-08-25 03:00:00 PM, [address] [facility], , [place], [address], Insurance Providers Payer Name Payer Address Payer Phone Insured Name Patient Relati onship to Insured Coverage Start Date Coverage End Date [facility] CLAIMS DEPT [address] [place], [place] [phone] MARLENY QUINONEZ 2019
--- OUTSIDE RECORDS SUMMARY | 2021-08-19 16:36 | CCD ---
Author Author [facility] Organization [facility] Address Unknown Phone Unavailable Care Team Providers Care Automobile Tester Name Role Phone Reggie Zuniga Unavailable PROBLEMS Type Condition ICD9-CM Code [id number] Code Onset Dates Condition S tatus W/U Status Risk SNOMED Code Notes Problem Congestive heart failure I50.9 Active confirmed 26718874 Problem Depression F32.9 Active confirmed 821425935 Problem Hypertension I10 Active confirmed 7894283 3 Problem Mammogram abnormal R92.8 Active confirmed 1 64408291 Problem Maxillary sinusitis, unspecified chronicity J32.0 Active confirmed 65631833 Problem Allergic rhinitis, unspecifi ed chronicity, unspecified seasonality, unspecified trigger J30.9 Active confirmed 89126003 Problem Hx pulmonary embolism Z86.711 Active confirmed 986936069 Problem BMI 60.0-69.9, adult Z68.44 Active confirmed 214755724 Problem Anxiety F41.9 Active confirmed 05240267 Problem Hypertriglyceridemia E78.1 Active confirmed 144804853 Problem Reactive airway disease J45.909 Active confirmed 542741392562 Problem Obstructive sleep apnea (adult) (pediatric) G47.33 Active confirmed 75971679 Problem Aortic valve sclerosis I35.8 Active confirmed 81523413 Problem Lumbago with sciatica, right side M54.41 Active confirmed 535587960 Problem Morbid obesity E66.01 Active confirmed 79293 6002 Problem Polyarthropathy M13.0 Active confirmed 3618 6002 Problem Irregular menstrual cycle N92.6 Active confirmed 08761217 Problem Abnormal bleeding in menstrual cycle N93.9 Act arun confirmed 744233489 Problem Insomnia, unspecified type G47.00 Active confirmed 142640893 Problem CHELA (obstructive sleep apnea) G47.33 Active confirm ed 86633697 Problem Acute and chronic respiratory failure with hypercapnia J96.22 Active confirmed 3424557738318 Problem Acute and chronic respiratory failure with hypoxia J96.21 Active confirmed 22833062215952 Problem Type 2 diabetes mellitus wit hout complication, unspecified whether mcfp insulin use E11.9 Active confirmed 758288516 Problem Major depressive disorder, single episode, moderate F32.1 Active confirmed 702256185 Problem Osteoarthritis, unspecified osteoarthritis type, unspecified site M19.90 Active confirmed 619225134 Problem Hyperlipidemia, unspecified hyperlipidemia type E7 8.5 Active confirmed 30049758 Problem Diastolic dysfunction I51.9 Active confirmed 4506127 Problem Obesity hypoventilation syndrome E66.2 Active conf irmed 94369565 Problem Vaginal bleeding N93.9 Active confirmed 289 296271 Problem Nonrheumatic aortic valve stenosis I35.0 Activ e confirmed 719507094 Problem Pneumonia due to methicillin resistant Staphylococcus aureus, unspecified laterality, unspecified part of lung J15.212 A ctive confirmed 789557521750790 ALLERGIES Allergen (clinical drug ingredient) Drug/Non Drug Allergy do cumented on EMR Reaction Allergy Type Onset Date Status environmental allergies itchy,waterty eyes, Non Drug Aller gy Active ENCOUNTERS from 1960 to 2021-06-09 Encounter Location Date Provider Diagnosis [facility] [place] [address] [facility] [phone] [place] [address] 17 May, 2021 Reggie Zuniga Acute and chronic re spiratory failure with hypercapnia J96.22 ; Pneumonia due to methicillin resistant Staphylococcus aureus, unspecified laterality, unspecified part of lung J15.212 ; Congestive heart failure I50.9 ; Vaginal bleeding N93.9 ; Lower extremity edema R60.0 ; CHELA (obstructive sleep apnea) G47.33 ; Obesity hypoventilation syndrome E66.2 and Nonrheumatic aortic valve stenosis I35.0 IMMUNIZATIONS Vaccine Route Administration Date Status Influenza [...] never smoker never smoker REASON FOR REFERRAL from 1960 to 2021-06-09 Reason CHF and mild Aortic stenosis / CHF in the hosdpital Diagnosis 1 Nonrheumatic aortic valve [facility] (I35.0) Referral Organization [facility] Infectious Disease [place] Referring Provider First Name Reggie Referring Provider Last Name Nadia Referring Provider Specialty Infectious Disease Referred Provider Julio César Lujan Referred Provider Specialty Cardiology Referral Priority Routine General Notes Reggiejosé miguelObdulia 05/25/2021 3:52:34 PM > faxed to office VITAL SIGNS Weight 450 lbs May, Weight-kg 204.12 kg May, Height 68 in May, BMI 68.41 kg/m2 May, Heart Rate 94 /min May, Respiratory Rate 22 /min May, Temperature 98.2 degrees Fahrenheit May, Oximetry 99% on 3 L May, Blood pressure systolic 128 mm Hg May, Blood pressure diastolic 64 mm Hg May, MEDICATIONS Medication SIG (Take, [...] with s eat. Large size, with hand network systems analyst, and breaks Dx. E66.01 for 99 days Jul, Ac tive Glucometer as directed Dx: e11.9 _ for 99 days 09 Dec, 201 9 Active CPAP PANNY @ bedtime Active [...] Information RESULTS No Results REASON FOR VISIT [facility], d/c 05/05 MEDICAL (GENERAL) HISTORY Type Description Date Medical History sleep apnea Medical History hypertension Medical History protein C deficiency Medical History depression Stopped following D. Herheim Medical History pulmonary embolism 12/29/2009 Medical History Congestive Heart Failure Medical History ECHO 2013 LVEF 60-65% Surgical History c-sections 1982,1984 Hospitalization History [facility] -Acute on chronic hypoxe karuna and hypercapnic resp failure 04/09-05/05/2021 Goals Section No Information Health Concerns No Information MEDICAL EQUIPMENT No Information MENTAL STATUS No Information FUNCTIONAL STATUS No Information ASSESSMENTS Encounter Date Diagnosis Assessment Notes Treatment Notes Treatm ent Clinical Notes May, Acute and chronic respirator y failure with hypercapnia (ICD-10 - J96.22) She needs to be referred to cardiology for close monitoring. She was advised to weigh herself daily and if her weight increases more than 3 pounds to call her primary care provider and possibly increase her diuretic dose. She was advised on a low-sodium diet. May, Pneumonia due to methicillin resistant Staphylococcus aureus, unspecified laterality, unspecified part of lung (ICD-10 - J15.212) She was treated with 10 days linezolid, pneumonia resolved May, Congestive heart failure (ICD-10 - I50.9) May, Vaginal bleeding (ICD-10 - N93.9) Will follow with business account executive May, Lower extremity edema (ICD-10 - R60.0) Advised getting a scale and weigh daily May, CHELA (obstructive sleep apnea) (ICD-10 - G47.33) She is currently using BiPAP previously on CPAP May, Obesity hypoventilation syndrome (ICD-10 - E66.2 ) May, Nonrheumatic aortic valve stenosis (ICD-10 - I35 .0) Referral made to cardiology PLAN OF TREATMENT Medication Medication Name Sig [...] days Treatment Notes Assessment Notes Clinical Notes Acute and chronic respiratory failure with hypercapnia She needs to be referred to cardiology for close monitoring. She was advised to weigh herself daily and if her weight increases more than 3 pounds to call her primary care provider and possibly increase her diuretic dose. She was advised on a low- sodium diet. Pneumonia due to methicillin resistant S taphylococcus aureus, unspecified laterality, unspecified part of lung She was treated w ith 10 days linezolid, pneumonia resolved Vaginal bleeding Will follow with business account executive Lower extremity edema Advised getting a scale and weigh daily CHELA (obstructive sleep apnea) She is cur rently using BiPAP previously on CPAP Nonrheumatic aortic valve stenosis Refer ral made to cardiology Referrals Referral Date Details CHF and mild Aortic stenosis / CHF in the hosdpital, Julio César Tai Next Appt Details prn Reason: Provider Name:Laura Sloan, 2021-07-19 01:00:00 PM, [address] [facility], , [place], [address], Provider Name:Jahaira Driver, 2021-08-25 03:00:00 PM, [address] [facility], , [place], [address], Insurance Providers Payer Name Payer Address Payer Phone Insured Name Patient Relati onship to Insured Coverage Start Date Coverage End Date [facility] CLAIMS DEPT [address] [facility] [phone] MARLENY QUINONEZ 2019
--- OUTSIDE RECORDS SUMMARY | 2021-08-19 16:36 | CCD ---
Author Author [facility] Organization [facility] Address Unknown Phone Unavailable Care Team Providers Care Air Cargo Ground Crew Supervisor Name Role Phone Jahaira Driver Unavailable PROBLEMS Type Condition ICD9-CM Code [id number] Code Onset Dates Condition S tatus W/U Status Risk SNOMED Code Notes Problem Congestive heart failure I50.9 Active confirmed 93140127 Problem Depression F32.9 Active confirmed 947005597 Problem Hypertension I10 Active confirmed 6811532 3 Problem Mammogram abnormal R92.8 Active confirmed 1 97082498 Problem Maxillary sinusitis, unspecified chronicity J32.0 Active confirmed 38134759 Problem Allergic rhinitis, unspecifi ed chronicity, unspecified seasonality, unspecified trigger J30.9 Active confirmed 82024784 Problem Hx pulmonary embolism Z86.711 Active confirmed 098386260 Problem BMI 60.0-69.9, adult Z68.44 Active confirmed 083837604 Problem Anxiety F41.9 Active confirmed 92762718 Problem Hypertriglyceridemia E78.1 Active confirmed 690009549 Problem Reactive airway disease J45.909 Active confirmed 765153748054 Problem Obstructive sleep apnea (adult) (pediatric) G47.33 Active confirmed 11015819 Problem Aortic valve sclerosis I35.8 Active confirmed 71832373 Problem Lumbago with sciatica, right side M54.41 Active confirmed 800352217 Problem Morbid obesity E66.01 Active confirmed 26437 6002 Problem Polyarthropathy M13.0 Active confirmed 3618 6002 Problem Irregular menstrual cycle N92.6 Active confirmed 94460787 Problem Abnormal bleeding in menstrual cycle N93.9 Act arun confirmed 231728200 Problem Insomnia, unspecified type G47.00 Active confirmed 421770330 Problem CHELA (obstructive sleep apnea) G47.33 Active confirm ed 25615286 Problem Acute and chronic respiratory failure with hypercapnia J96.22 Active confirmed 9382737502692 Problem Acute and chronic respiratory failure with hypoxia J96.21 Active confirmed 49156442967096 Problem Type 2 diabetes mellitus wit hout complication, unspecified whether retirement insulin use E11.9 Active confirmed 886832763 Problem Major depressive disorder, single episode, moderate F32.1 Active confirmed 320766052 Problem Osteoarthritis, unspecified osteoarthritis type, unspecified site M19.90 Active confirmed 855519192 Problem Hyperlipidemia, unspecified hyperlipidemia type E7 8.5 Active confirmed 50722867 Problem Diastolic dysfunction I51.9 Active confirmed 5599489 Problem Obesity hypoventilation syndrome E66.2 Active conf irmed 72574137 Problem Vaginal bleeding N93.9 Active confirmed 289 368482 Problem Nonrheumatic aortic valve stenosis I35.0 Activ e confirmed 753012567 Problem Pneumonia due to methicillin resistant Staphylococcus aureus, unspecified laterality, unspecified part of lung J15.212 A ctive confirmed 492364209006155 ALLERGIES Allergen (clinical drug ingredient) Drug/Non Drug Allergy do cumented on EMR Reaction Allergy Type Onset Date Status environmental allergies itchy,waterty eyes, Non Drug Aller gy Active ENCOUNTERS from 1960 to 2021-06-16 Encounter Location Date Provider Diagnosis [facility] [address] [facility] [phone] [place] [address] 08 Jun, 2021 Jahaira Driver IMMUNIZATIONS Vaccine Route Administration [...] with s eat. Large size, with hand utility technician, and breaks Dx. E66.01 for 99 days [...] Information RESULTS No Results REASON FOR VISIT SHH Update MEDICAL (GENERAL) HISTORY Type Description Date Medical [...] Name:Laura Lisa, 2021-07-19 01:00:00 PM, [address] [facility], , [place], [address], Provider Name:Jahaira Driver, 2021-08-25 03:00:00 PM, [address] [facility], , [place], [address], Insurance Providers Payer Name Payer Address Payer Phone Insured Name Patient Relati onship to Insured Coverage Start Date Coverage End Date [employer] [address]PT [address] [place] [phone] MARLENY QUINONEZ 2019
--- OUTSIDE RECORDS SUMMARY | 2021-08-19 16:36 | CCD | Continuity of Care Document ---
Author Author Ela TSANG M.D. Organization Unknown Address [address] [place] [address] Phone [phone] Care Team Providers Care Chlorine Cell Tender Name Role Phone Ninfa Arnett AUTM [phone] Emily Santa P.A.-C AUTM [phone] AUTM Unavailable Problems Active Problems Provider Date Obstructive sleep apnea syndrome Brittani Waite, KenanNSindi Onset: 07/16/2014 Social History Type Date Description Comments Sex Unknown Allergies, Adverse Reactions, Alerts Description No Information Available Medications Active Medications SIG Qnty Indications Ordering Provide r Date Furosemide 40mg Tablets 1 po qd Unknown Metoprolol Tartrate 50mg Tablets 1 by mouth every day Unknown Xarelto 20mg Tablets 1 po qd Unknown Lisinopril-Hydrochlorothiazide 20-25mg Tablets 1 po qd Unknown Zyrtec Allergy 10mg Capsules 1 by mouth every day 30caps Unknown Fluoxetine HCL 40mg Capsules every day Unknown Atorvastatin Calcium 20mg Tablets 1 by mouth every day Unknown Immunizations Description No Information Available Vital Signs Date Vital Result Comment 07/03/2016 10:30am BP Systolic 142 mmHg BP Diastolic 80 mmHg Heart Rate 96 /min O2 % BldC Oximetry 91 % Height 67 inches Weight 373.00 lb BMI (Body Mass Index) 58.4 kg/m2 Weight 169.190 kg 07/16/2014 2:14pm BP Systolic 130 mmHg BP Diastolic 82 mmHg Heart Rate 108 /min O2 % BldC Oximetry 97 % Height 67 inches Weight 363.00 lb BMI (Body Mass Index) 56.8 kg/m2 Weight 164.654 kg Results Description No Information Available Procedures Date Code Description Status 04/23/2021 04605 Hospital Subsequent Care Level 2 Completed 04/22/2021 31281 Critical Care First 30-74 Minute s Completed 04/21/2021 95507 Critical Care First 30-74 Minute s Completed 04/20/2021 76749 Critical Care First 30-74 Minute s Completed 04/19/2021 46107 Critical Care First 30-74 Minute s Completed 04/18/2021 98733 Critical Care First 30-74 Minute s Completed 04/17/2021 35831 Critical Care First 30-74 Minute s Completed 04/16/2021 91710 Critical Care First 30-74 Minute s Completed 04/15/2021 92582 Critical Care Addl 30 Min Comple nina 04/15/2021 38690 Critical Care First 30-74 Minute s Completed 04/14/2021 46327 Hospital Subsequent Care Level 2 Completed 04/13/2021 54717 Hospital Subsequent Care Level 2 Completed 04/12/2021 34732 Hospital Subsequent Care Level 2 Completed 04/11/2021 62941 Hospital Subsequent Care Level 2 Completed 04/10/2021 10594 Critical Care First 30-74 Minute s Completed 04/09/2021 07221 Critical Care First 30-74 Minute s Completed 03/26/2021 25089 Hospital Subsequent Care Level 2 Completed 03/25/2021 41110 Critical Care First 30-74 Minute s Completed 03/24/2021 16738 Critical Care First 30-74 Minute s Completed 03/23/2021 45796 Hospital Subsequent Care Level 2 Completed 03/22/2021 03327 Critical Care First 30-74 Minute s Completed Medical Devices Description No Information Available Encounters Type Date Location Provider Dx Diagnosis Office Visit 04/23/2021 1:23a [facility] Haley Hines M.D. J96.21 Acute and chronic respirator y failure with hypoxia J96.22 Acute and chronic respirator y failure with hypercapnia J15.212 Pneumonia due to Methicillin resistant Staphylococcus aureus I50.9 Heart failure, unspecified Office Visit 04/22/2021 1:23a [facility] Haley Hines M.D. J96.21 Acute and chronic respirator y failure with hypoxia J96.22 Acute and chronic respirator y failure with hypercapnia J15.212 Pneumonia due to Methicillin resistant Staphylococcus aureus I50.9 Heart failure, unspecified Office Visit 04/21/2021 1:23a [facility] D avid P. Rechlin, DO J96.21 Acute and chronic respirator y failure with hypoxia J96.22 Acute and chronic respirator y failure with hypercapnia J15.212 Pneumonia due to Methicillin resistant Staphylococcus aureus I50.9 Heart failure, unspecified Office Visit 04/20/2021 1:23a [facility] D avid P. Rechlin, DO J96.21 Acute and chronic respirator y failure with hypoxia J96.22 Acute and chronic respirator y failure with hypercapnia J15.212 Pneumonia due to Methicillin resistant Staphylococcus aureus I50.9 Heart failure, unspecified Office Visit 04/19/2021 1:23a [facility] D avid P. Rechlin, DO J96.21 Acute and chronic respirator y failure with hypoxia J96.22 Acute and chronic respirator y failure with hypercapnia J15.212 Pneumonia due to Methicillin resistant Staphylococcus aureus I50.9 Heart failure, unspecified Office Visit 04/18/2021 1:23a [facility] D avid P. Rechlin, DO J96.21 Acute and chronic respirator y failure with hypoxia J96.22 Acute and chronic respirator y failure with hypercapnia J15.212 Pneumonia due to Methicillin resistant Staphylococcus aureus I50.9 Heart failure, unspecified Office Visit 04/17/2021 1:23a [facility] D avid P. Rechlin, DO J96.21 Acute and chronic respirator y failure with hypoxia J96.22 Acute and chronic respirator y failure with hypercapnia J15.212 Pneumonia due to Methicillin resistant Staphylococcus aureus R60.1 Generalized edema Office Visit 04/16/2021 1:23a [facility] D avid P. Rechlin, DO J96.21 Acute and chronic respirator y failure with hypoxia J96.22 Acute and chronic respirator y failure with hypercapnia I50.9 Heart failure, unspecified E66.2 Morbid (severe) obesity with alveolar hypoventilation Office Visit 04/15/2021 1:23a [facility] D avid P. Rechlin, DO J96.21 Acute and chronic respirator y failure with hypoxia J96.22 Acute and chronic respirator y failure with hypercapnia I50.9 Heart failure, unspecified E66.2 Morbid (severe) obesity with alveolar hypoventilation Office Visit 04/14/2021 1:23a [facility] Og Rodríguez MD J96.21 Acute and chronic respiratory failure wi th hypoxia R41.82 Altered mental status, unspe cified E66.2 Morbid (severe) obesity with alveolar hypoventilation I50.9 Heart failure, unspecified Office Visit 04/13/2021 1:23a [facility] Og Rodríguez MD J96.21 Acute and chronic respiratory failure wi th hypoxia R41.82 Altered mental status, unspe cified E66.2 Morbid (severe) obesity with alveolar hypoventilation I50.9 Heart failure, unspecified Office Visit 04/12/2021 1:23a [facility] Og Rodríguez MD R41.82 Altered mental status, unspecified J96.21 Acute and chronic respirator y failure with hypoxia E66.2 Morbid (severe) obesity with alveolar hypoventilation I50.9 Heart failure, unspecified Office Visit 04/11/2021 1:23a [facility] Og Rodríguez MD R41.82 Altered mental status, unspecified E66.2 Morbid (severe) obesity with alveolar hypoventilation I50.9 Heart failure, unspecified J96.21 Acute and chronic respirator y failure with hypoxia Office Visit 04/10/2021 1:23a [facility] Og Rodríguez MD J96.21 Acute and chronic respiratory failure wi th hypoxia J96.22 Acute and chronic respirator y failure with hypercapnia G47.33 Obstructive sleep apnea (annelise lt) (pediatric) I50.9 Heart failure, unspecified Office Visit 04/09/2021 1:23a [facility] Og Rodríguez MD J96.21 Acute and chronic respiratory failure wi th hypoxia J96.22 Acute and chronic respirator y failure with hypercapnia G47.33 Obstructive sleep apnea (annelise lt) (pediatric) 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 J96.01 Acute respiratory failure wi th hypoxia J96.02 Acute respiratory failure wi th hypercapnia J45.901 Unspecified asthma with (acu te) exacerbation I50.9 Heart failure, unspecified Office Visit 03/25/2021 1:23a [facility] Haley Hines M.D. J96.01 Acute respiratory failure wi th hypoxia J96.02 Acute respiratory failure wi th hypercapnia J45.901 Unspecified asthma with (acu te) exacerbation I50.9 Heart failure, unspecified Office Visit 03/24/2021 1:23a [facility] Haley Hines M.D. J96.01 Acute respiratory failure wi th hypoxia J96.02 Acute respiratory failure wi th hypercapnia J45.901 Unspecified asthma with (acu te) exacerbation G47.33 Obstructive sleep apnea (annelise lt) (pediatric) Office Visit 03/23/2021 1:23a [facility] Haley Hines M.D. J96.01 Acute respiratory failure wi th hypoxia J96.02 Acute respiratory failure wi th hypercapnia J45.901 Unspecified asthma with (acu te) exacerbation G47.33 Obstructive sleep apnea (annelise lt) (pediatric) Office Visit 03/22/2021 1:23a [facility] Haley Hines M.D. J96.01 Acute respiratory failure wi th hypoxia J96.02 Acute respiratory failure wi th hypercapnia J45.901 Unspecified asthma with (acu te) exacerbation G47.33 Obstructive sleep apnea (annelise lt) (pediatric) Assessments Date Code Description Provider 04/23/2021 J96.21 Acute and chronic respiratory fa ilure with hypoxia Haley Tsang M.D. 04/23/2021 J96.22 Acute and chronic respiratory fa ilure with hypercapnia Haley Tsang M.D. 04/23/2021 J15.212 Pneumonia due to Methicillin res istant Staphylococcus aureus Haley Tsang M.D. 04/23/2021 I50.9 Heart failure, unspecified Haley Ozuna M.D. 04/22/2021 J96.21 Acute and chronic respiratory fa ilure with hypoxia Haley Tsang M.D. 04/22/2021 J96.22 Acute and chronic respiratory fa ilure with hypercapnia Haley Tsang M.D. 04/22/2021 J15.212 Pneumonia due to Methicillin res istant Staphylococcus aureus Haley Tsang M.D. 04/22/2021 I50.9 Heart failure, unspecified Haley Ozuna M.D. 04/21/2021 J96.21 Acute and chronic respiratory fa ilure with hypoxia Jaycob Lozano, DO 04/21/2021 J96.22 Acute and chronic respiratory fa ilure with hypercapnia Jaycob Lozaon, DO 04/21/2021 J15.212 Pneumonia due to Methicillin res istant Staphylococcus aureus Jaycob Lozano, DO 04/21/2021 I50.9 Heart failure, unspecified Jaycob Lozano, DO 04/20/2021 J96.21 Acute and chronic respiratory fa ilure with hypoxia Jaycob Lozano, DO 04/20/2021 J96.22 Acute and chronic respiratory fa ilure with hypercapnia Jaycob Lozano, DO 04/20/2021 J15.212 Pneumonia due to Methicillin res istant Staphylococcus aureus Jaycob Lozano, DO 04/20/2021 I50.9 Heart failure, unspecified Jaycob Lozano, DO 04/19/2021 J96.21 Acute and chronic respiratory fa ilure with hypoxia Jaycob Lozano, DO 04/19/2021 J96.22 Acute and chronic respiratory fa ilure with hypercapnia Jaycob Lozano, DO 04/19/2021 J15.212 Pneumonia due to Methicillin res istant Staphylococcus aureus Jaycob Lozano, DO 04/19/2021 I50.9 Heart failure, unspecified Jaycob Lozano, DO 04/18/2021 J96.21 Acute and chronic respiratory fa ilure with hypoxia Jaycob Lozano, DO 04/18/2021 J96.22 Acute and chronic respiratory fa ilure with hypercapnia Jaycob Lozano, DO 04/18/2021 J15.212 Pneumonia due to Methicillin res istant Staphylococcus aureus Jaycob Lozano, DO 04/18/2021 I50.9 Heart failure, unspecified Jaycob Lozano, DO 04/17/2021 J96.21 Acute and chronic respiratory fa ilure with hypoxia Jaycob Lozano, DO 04/17/2021 J96.22 Acute and chronic respiratory fa ilure with hypercapnia Jaycob Lozano, DO 04/17/2021 J15.212 Pneumonia due to Methicillin res istant Staphylococcus aureus Jaycob Lozano, DO 04/17/2021 R60.1 Generalized edema Jaycob Solorio in, DO 04/16/2021 J96.21 Acute and chronic respiratory fa ilure with hypoxia Jaycob Lozano, DO 04/16/2021 J96.22 Acute and chronic respiratory fa ilure with hypercapnia Jaycob Lozano, DO 04/16/2021 I50.9 Heart failure, unspecified Jaycob Lozano, DO 04/16/2021 E66.2 Morbid (severe) obesity with diane eolar hypoventilation Jaycob Lozano, DO 04/15/2021 J96.21 Acute and chronic respiratory fa ilure with hypoxia Jaycob Lozano, DO 04/15/2021 J96.22 Acute and chronic respiratory fa ilure with hypercapnia Jaycob Lozano, DO 04/15/2021 I50.9 Heart failure, unspecified Jaycob Lozano, DO 04/15/2021 E66.2 Morbid (severe) obesity with diane eolar hypoventilation Jaycob Lozano, DO 04/14/2021 J96.21 Acute and chronic respiratory fa ilure with hypoxia Timmy Rodríguez MD 04/14/2021 R41.82 Altered mental status, unspecifi ed Timmy Rodríguez MD 04/14/2021 E66.2 Morbid (severe) obesity with diane eolar hypoventilation Timmy Rodríguez MD 04/14/2021 I50.9 Heart failure, unspecified Braeden Rodríguez MD 04/13/2021 J96.21 Acute and chronic respiratory fa ilure with hypoxia Timmy Rodríguez MD 04/13/2021 R41.82 Altered mental status, unspecifi ed Timmy Rodríguez MD 04/13/2021 E66.2 Morbid (severe) obesity with diane eolar hypoventilation Timmy Rodríguez MD 04/13/2021 I50.9 Heart failure, unspecified Braeden Rodríguez MD 04/12/2021 R41.82 Altered mental status, unspecifi ed Timmy Rodríguez MD 04/12/2021 J96.21 Acute and chronic respiratory fa ilure with hypoxia Timmy Rodríguez MD 04/12/2021 E66.2 Morbid (severe) obesity with diane eolar hypoventilation Timmy Rodríguez MD 04/12/2021 I50.9 Heart failure, unspecified Braeden Rodríguez MD 04/11/2021 R41.82 Altered mental status, unspecifi ed Timmy Rodríguez MD 04/11/2021 E66.2 Morbid (severe) obesity with diane eolar hypoventilation Timmy Rodríguez MD 04/11/2021 I50.9 Heart failure, unspecified Braeden Rodríguez MD 04/11/2021 J96.21 Acute and chronic respiratory fa ilure with hypoxia Timmy Rodríguez MD 04/10/2021 J96.21 Acute and chronic respiratory fa ilure with hypoxia Timmy Rodríguez MD 04/10/2021 J96.22 Acute and chronic respiratory fa ilure with hypercapnia Timmy Rodríguez MD 04/10/2021 G47.33 Obstructive sleep apnea (adult) (pediatric) Timmy Rodríguez MD 04/10/2021 I50.9 Heart failure, unspecified Braeden Rodríguez MD 04/09/2021 J96.21 Acute and chronic respiratory fa ilure with hypoxia Timmy Rodríguez MD 04/09/2021 J96.22 Acute and chronic respiratory fa ilure with hypercapnia Timmy Rodríguez MD 04/09/2021 G47.33 Obstructive sleep apnea (adult) (pediatric) Timmy Rodríguez MD 04/09/2021 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 03/26/2021 J96.02 Acute respiratory failure with h ypercapnia Haley Tsang M.D. 03/26/2021 J45.901 Unspecified asthma with (acute) exacerbation Haley Tsang M.D. 03/26/2021 I50.9 Heart failure, unspecified Haley Ozuna M.D. 03/25/2021 J96.01 Acute respiratory failure with h ypoxia Haley Tsang M.D. 03/25/2021 J96.02 Acute respiratory failure with h ypercapHaley Oakes M.D. 03/25/2021 J45.901 Unspecified asthma with (acute) exacerbation Haley Tsang M.D. 03/25/2021 I50.9 Heart failure, unspecified Haley Ozuna M.D. 03/24/2021 J96.01 Acute respiratory failure with h ypHaley Roth M.D. 03/24/2021 J96.02 Acute respiratory failure with h ypinezapHaley Oakes M.D. 03/24/2021 J45.901 Unspecified asthma with (acute) exacerbation Haley Tsang M.D. 03/24/2021 G47.33 Obstructive sleep apnea (adult) (pediatric) Haley Tsang M.D. 03/23/2021 J96.01 Acute respiratory failure with h ypHaley Roth M.D. 03/23/2021 J96.02 Acute respiratory failure with h Haley Valadez M.D. 03/23/2021 J45.901 Unspecified asthma with (acute) exacerbation Haley Tsang M.D. 03/23/2021 G47.33 Obstructive sleep apnea (adult) (pediatric) Haley Tsang M.D. 03/22/2021 J96.01 Acute respiratory failure with h ypHaley Roth M.D. 03/22/2021 J96.02 Acute respiratory failure with h Haley Valadez M.D. 03/22/2021 J45.901 Unspecified asthma with (acute) exacerbation Haley Tsang M.D. 03/22/2021 G47.33 Obstructive sleep apnea (adult) (pediatric) Haley Tsang M.D. Plan of Treatment Future Appointment(s):* 06/06/2021 9:00 am - Jaycob Lozano DO at [facility] Functional Status Description No Information Available Mental Status Description No Information Available Referrals Description No Information Available
--- OUTSIDE RECORDS SUMMARY | 2021-08-19 16:36 | CCD ---
Author Author [facility] Organization [facility] Address Unknown Phone Unavailable Care Team Providers Care Fish Skinning Machine Feeder Name Role Phone Jahaira Driver Unavailable PROBLEMS Type Condition ICD9-CM Code [id number] Code Onset Dates Condition S tatus W/U Status Risk SNOMED Code Notes Problem Congestive heart failure I50.9 Active confirmed 18902521 Problem Depression F32.9 Active confirmed 377275614 Problem Hypertension I10 Active confirmed 2798638 3 Problem Mammogram abnormal R92.8 Active confirmed 1 64897123 Problem Maxillary sinusitis, unspecified chronicity J32.0 Active confirmed 91638987 Problem Allergic rhinitis, unspecifi ed chronicity, unspecified seasonality, unspecified trigger J30.9 Active confirmed 21148680 Problem Hx pulmonary embolism Z86.711 Active confirmed 049737688 Problem BMI 60.0-69.9, adult Z68.44 Active confirmed 198375542 Problem Anxiety F41.9 Active confirmed 97668705 Problem Hypertriglyceridemia E78.1 Active confirmed 862529285 Problem Reactive airway disease J45.909 Active confirmed 805449969991 Problem Obstructive sleep apnea (adult) (pediatric) G47.33 Active confirmed 43027632 Problem Aortic valve sclerosis I35.8 Active confirmed 27740246 Problem Lumbago with sciatica, right side M54.41 Active confirmed 164404332 Problem Morbid obesity E66.01 Active confirmed 65882 6002 Problem Polyarthropathy M13.0 Active confirmed 3618 6002 Problem Irregular menstrual cycle N92.6 Active confirmed 07583986 Problem Abnormal bleeding in menstrual cycle N93.9 Act arun confirmed 772260928 Problem Insomnia, unspecified type G47.00 Active confirmed 168158960 Problem CHELA (obstructive sleep apnea) G47.33 Active confirm ed 74742933 Problem Acute and chronic respiratory failure with hypercapnia J96.22 Active confirmed 5731526456888 Problem Acute and chronic respiratory failure with hypoxia J96.21 Active confirmed 62710157312749 Problem Type 2 diabetes mellitus wit hout complication, unspecified whether assisted insulin use E11.9 Active confirmed 094341131 Problem Major depressive disorder, single episode, moderate F32.1 Active confirmed 644236742 Problem Osteoarthritis, unspecified osteoarthritis type, unspecified site M19.90 Active confirmed 993575388 Problem Hyperlipidemia, unspecified hyperlipidemia type E7 8.5 Active confirmed 09498379 Problem Diastolic dysfunction I51.9 Active confirmed 7154803 Problem Obesity hypoventilation syndrome E66.2 Active conf irmed 68689219 Problem Vaginal bleeding N93.9 Active confirmed 289 118431 Problem Nonrheumatic aortic valve stenosis I35.0 Activ e confirmed 822053439 Problem Pneumonia due to methicillin resistant Staphylococcus aureus, unspecified laterality, unspecified part of lung J15.212 A ctive confirmed 990444184926510 ALLERGIES Allergen (clinical drug ingredient) Drug/Non Drug Allergy do cumented on EMR Reaction Allergy Type Onset Date Status environmental allergies itchy,waterty eyes, Non Drug Aller gy Active ENCOUNTERS from 1960 to 2021-05-26 Encounter Location Date Provider Diagnosis [facility] [id number] [place] [address] [place] [address] May, Jahaira Driver IMMUNIZATIONS Vaccine Route Administration [...] with s eat. 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 E66.01 for 99 days [...] Information RESULTS No Results REASON FOR VISIT Inhaler Questions MEDICAL (GENERAL) HISTORY Type Description Date Medical [...] Provider Name:Laura Lisa, 2021-07-19 01:00:00 PM, [address] [facility], , [place], [address], Provider Name:Jahaira Driver, 2021-08-25 03:00:00 PM, [address] [facility], , [place], [address], Insurance Providers Payer Name Payer Address Payer Phone Insured Name Patient Relati onship to Insured Coverage Start Date Coverage End Date [facility] [employer] CLAIMS DEPT [address] [facility] [phone] MARLENY QUINONEZ 2019
--- OUTSIDE RECORDS SUMMARY | 2021-08-19 16:36 | CCD | Continuity of Care Document ---
Author Author Ela LOZANO DO Organization Unknown Address [address] [place] [address] Phone [phone] Care Team Providers Care Information Systems Technician Name Role Phone AUTM Unavailable Jahaira Driver M.D. AUTM [phone] Problems Active Problems Provider Date Obstructive sleep apnea syndrome Brittani Waite A.N.P. Onset: 07/16/2014 Social History Type Date Description Comments Sex Unknown Tobacco Use Start: Unknown Patient has never smoked Smoking Status Reviewed: 06/06/21 Patient has never smoked Allergies, Adverse Reactions, Alerts Active Allergies Criticality Reaction | Severity Comments Date NKDA Unable to assess criticality 06/06/2021 Seasonal Unable to assess criticality 06/06/2021 Medications Active Medications SIG Qnty Indications Ordering Provide r Date Furosemide 40mg Tablets 1 tab by mouth everyday Unknown Xarelto 20mg Tablets 1 tab by mouth everyday-hx of Pe, PCP Unknown 0 Zyrtec Allergy 10mg Capsules 1 by mouth every day 30caps Unknown Metoprolol Succinate ER 25mg Tablets ER 24HR 1 tab by mouth three times a day Unknown Metformin HCL 500mg Tablets 1 tab by mouth twice a day Unknown Magnesium 1 tab by mouth everyday Unknown 0 Buspirone HCL 1 tab by mouth everyday Unknown Venlafaxine HCL 37.5mg Tablets 1 tab by mouth everyday Unknown Progesterone 100mg Capsules 1 tab by mouth twice a day Unknown Anoro Ellipta 62.5-25mcg/Inh Aeros ol 1 puff every day Unknown Albuterol Sulfate HFA 108(90Base) mcg/Act Aerosol inhale two puffs by mouth four times a day as needed Unknown Combivent Respimat 20-100mcg/Act A erosol 1-2 puff four times a day as needed Unknown Ramelteon 8mg Tablets 1 tab by mouth every day Unknown Montelukast Sodium 10mg Tablets 1 tab by mouth every day Unknown Oxygen Device `3l cont. (LCW ) Unknown Immunizations Description No Information Available Vital Signs Date Vital Result Comment 06/06/2021 8:39am BP Systolic 128 mmHg BP Diastolic 78 mmHg Heart Rate 92 /min O2 % BldC Oximetry 983 % Height 67 inches 5'7" Weight 388.00 lb BMI (Body Mass Index) 60.8 kg/m2 [place] Body Weight 135 lb Weight 175.997 kg BSA (Body Surface Area) 2.68 m2 07/03/2016 10:30am BP Systolic 142 mmHg BP Diastolic 80 mmHg Heart Rate 96 /min O2 % BldC Oximetry 91 % Height 67 inches Weight 373.00 lb BMI (Body Mass Index) 58.4 kg/m2 Weight 169.190 kg Results Test Acquired Date Facility Test Result H/L Range Note FVL/Moon 06/06/2021 [facility] SEE IMAGE FVC-Pred 3.68 L FVC-Pre 1.39 L FVC-%Pred-Pre 37 L FVC-LLN 2.92 L Fev1-Pred 2.85 L Fev1-Pre 1.03 L Fev1-%Pred-Pre 36 L Fev1-LLN 2.20 L Fev6-Pred 3.55 L Fev6-Pre 1.39 L Fev6-%Pred-Pre 39 L Fev6-LLN 2.81 L Ocn0vpx-Xtpk 78 % Sop6oce-Arh 74 % Dqp7nfs-%Pred-Pre 94 % Duv9iwe-LKE 68 % Ffu3roo-Bjim 97 % Twg2hnr-Yai 100 % Lby1pcl-%Pred-Pre 103 % FEFMax-Pred 6.77 L/E/sec FEFMax-Pre 4.31 L/E/sec FEFMax-%Pred-Pre 63 L/E/sec FEFMax-LLN 4.89 L/E/sec Aoo9656-Wqsw 2.53 L/E/sec Vio7541-Xwo 0.69 L/E/sec Cxc4674-%Pred-Pre 27 L/E/sec Rbj6858-EDU 1.17 L/E/sec ExpTime-Pre 6.64 sec Lmi2lsv4-Gpnl 81 % Zmh4emr0-Xoj 74 % Sir2ria2-%Pred-Pre 91 % Jti6fha1-LMY 72 % Procedures Date Code Description Status 04/23/2021 93598 Hospital Subsequent Care Level 2 Completed 04/22/2021 95454 Critical Care First 30-74 Minute s Completed 04/21/2021 54918 Critical Care First 30-74 Minute s Completed 04/20/2021 30254 Critical Care First 30-74 Minute s Completed 04/19/2021 82156 Critical Care First 30-74 Minute s Completed 04/18/2021 92443 Critical Care First 30-74 Minute s Completed 04/17/2021 58792 Critical Care First 30-74 Minute s Completed 04/16/2021 01575 Critical Care First 30-74 Minute s Completed 04/15/2021 62663 Critical Care Addl 30 Min Comple nina 04/15/2021 82052 Critical Care First 30-74 Minute s Completed 04/14/2021 24423 Hospital Subsequent Care Level 2 Completed 04/13/2021 98999 Hospital Subsequent Care Level 2 Completed 04/12/2021 83128 Hospital Subsequent Care Level 2 Completed 04/11/2021 62873 Hospital Subsequent Care Level 2 Completed 04/10/2021 04029 Critical Care First 30-74 Minute s Completed 04/09/2021 25323 Critical Care First 30-74 Minute s Completed 03/26/2021 33352 Hospital Subsequent Care Level 2 Completed 03/25/2021 58549 Critical Care First 30-74 Minute s Completed 03/24/2021 92115 Critical Care First 30-74 Minute s Completed 03/23/2021 42378 Hospital Subsequent Care Level 2 Completed 03/22/2021 21373 Critical Care First 30-74 Minute s Completed Medical Devices Description No Information Available Encounters Type Date Location Provider Dx Diagnosis Office Visit 04/23/2021 1:23a [facility] K eenan, Haley, M.D. J96.21 Acute and chronic respirator y failure with hypoxia J96.22 Acute and chronic respirator y failure with hypercapnia J15.212 Pneumonia due to Methicillin resistant Staphylococcus aureus I50.9 Heart failure, unspecified Office Visit 04/22/2021 1:23a [facility] Haley Hines M.D. J96.21 Acute and chronic respirator y failure with hypoxia J96.22 Acute and chronic respirator y failure with hypercapnia J15.212 Pneumonia due to Methicillin resistant Staphylococcus aureus I50.9 Heart failure, unspecified Office Visit 04/21/2021 1:23a [facility] D avid P. Rechlin, DO J96.21 Acute and chronic respirator y failure with hypoxia J96.22 Acute and chronic respirator y failure with hypercapnia J15.212 Pneumonia due to Methicillin resistant Staphylococcus aureus I50.9 Heart failure, unspecified Office Visit 04/20/2021 1:23a [facility] D avid P. Rechlin, DO J96.21 Acute and chronic respirator y failure with hypoxia J96.22 Acute and chronic respirator y failure with hypercapnia J15.212 Pneumonia due to Methicillin resistant Staphylococcus aureus I50.9 Heart failure, unspecified Office Visit 04/19/2021 1:23a [facility] D avid P. Rechlin, DO J96.21 Acute and chronic respirator y failure with hypoxia J96.22 Acute and chronic respirator y failure with hypercapnia J15.212 Pneumonia due to Methicillin resistant Staphylococcus aureus I50.9 Heart failure, unspecified Office Visit 04/18/2021 1:23a [facility] D avid P. Rechlin, DO J96.21 Acute and chronic respirator y failure with hypoxia J96.22 Acute and chronic respirator y failure with hypercapnia J15.212 Pneumonia due to Methicillin resistant Staphylococcus aureus I50.9 Heart failure, unspecified Office Visit 04/17/2021 1:23a [facility] D avid P. Rechlin, DO J96.21 Acute and chronic respirator y failure with hypoxia J96.22 Acute and chronic respirator y failure with hypercapnia J15.212 Pneumonia due to Methicillin resistant Staphylococcus aureus R60.1 Generalized edema Office Visit 04/16/2021 1:23a [facility] D jen PRafia Lozano, DO J96.21 Acute and chronic respirator y failure with hypoxia J96.22 Acute and chronic respirator y failure with hypercapnia I50.9 Heart failure, unspecified E66.2 Morbid (severe) obesity with alveolar hypoventilation Office Visit 04/15/2021 1:23a [facility] D jen PRafia Lozano, DO J96.21 Acute and chronic respirator y failure with hypoxia J96.22 Acute and chronic respirator y failure with hypercapnia I50.9 Heart failure, unspecified E66.2 Morbid (severe) obesity with alveolar hypoventilation Office Visit 04/14/2021 1:23a [facility] Og Rodríguez MD J96.21 Acute and chronic respiratory failure wi th hypoxia R41.82 Altered mental status, unspe cified E66.2 Morbid (severe) obesity with alveolar hypoventilation I50.9 Heart failure, unspecified Office Visit 04/13/2021 1:23a [facility] Og Rodríguez MD J96.21 Acute and chronic respiratory failure wi th hypoxia R41.82 Altered mental status, unspe cified E66.2 Morbid (severe) obesity with alveolar hypoventilation I50.9 Heart failure, unspecified Office Visit 04/12/2021 1:23a [facility] Og Rodríguez MD R41.82 Altered mental status, unspecified J96.21 Acute and chronic respirator y failure with hypoxia E66.2 Morbid (severe) obesity with alveolar hypoventilation I50.9 Heart failure, unspecified Office Visit 04/11/2021 1:23a [facility] Og Rodríguez MD R41.82 Altered mental status, unspecified E66.2 Morbid (severe) obesity with alveolar hypoventilation I50.9 Heart failure, unspecified J96.21 Acute and chronic respirator y failure with hypoxia Office Visit 04/10/2021 1:23a [facility] Og Rodríguez MD J96.21 Acute and chronic respiratory failure wi th hypoxia J96.22 Acute and chronic respirator y failure with hypercapnia G47.33 Obstructive sleep apnea (annelise lt) (pediatric) I50.9 Heart failure, unspecified Office Visit 04/09/2021 1:23a [facility] Og Rodríguez MD J96.21 Acute and chronic respiratory failure wi th hypoxia J96.22 Acute and chronic respirator y failure with hypercapnia G47.33 Obstructive sleep apnea (annelise lt) (pediatric) 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 J96.01 Acute respiratory failure wi th hypoxia J96.02 Acute respiratory failure wi th hypercapnia J45.901 Unspecified asthma with (acu te) exacerbation I50.9 Heart failure, unspecified Office Visit 03/25/2021 1:23a [facility] Haley Hines M.D. J96.01 Acute respiratory failure wi th hypoxia J96.02 Acute respiratory failure wi th hypercapnia J45.901 Unspecified asthma with (acu te) exacerbation I50.9 Heart failure, unspecified Office Visit 03/24/2021 1:23a [facility] Haley Hines M.D. J96.01 Acute respiratory failure wi th hypoxia J96.02 Acute respiratory failure wi th hypercapnia J45.901 Unspecified asthma with (acu te) exacerbation G47.33 Obstructive sleep apnea (annelise lt) (pediatric) Office Visit 03/23/2021 1:23a [facility] Haley Hines M.D. J96.01 Acute respiratory failure wi th hypoxia J96.02 Acute respiratory failure wi th hypercapnia J45.901 Unspecified asthma with (acu te) exacerbation G47.33 Obstructive sleep apnea (annelise lt) (pediatric) Office Visit 03/22/2021 1:23a [facility] Haley Hines M.D. J96.01 Acute respiratory failure wi th hypoxia J96.02 Acute respiratory failure wi th hypercapnia J45.901 Unspecified asthma with (acu te) exacerbation G47.33 Obstructive sleep apnea (annelise lt) (pediatric) Assessments Date Code Description Provider 04/23/2021 J96.21 Acute and chronic respiratory fa ilure with hypoxia Haley Bailey M.D. 04/23/2021 J96.22 Acute and chronic respiratory fa ilure with hypercapnia Haley Bailey M.D. 04/23/2021 J15.212 Pneumonia due to Methicillin res istant Staphylococcus aureus Haley Bailey M.D. 04/23/2021 I50.9 Heart failure, unspecified Haley Ozuna M.D. 04/22/2021 J96.21 Acute and chronic respiratory fa ilure with hypoxia Haley Bailey M.D. 04/22/2021 J96.22 Acute and chronic respiratory fa ilure with hypercapnia Haley Bailey M.D. 04/22/2021 J15.212 Pneumonia due to Methicillin res istant Staphylococcus aureus Haley Bailey M.D. 04/22/2021 I50.9 Heart failure, unspecified Haley Ozuna M.D. 04/21/2021 J96.21 Acute and chronic respiratory fa ilure with hypoxia Jaycob Lozano, DO 04/21/2021 J96.22 Acute and chronic respiratory fa ilure with hypercapnia Jaycob Lozano, DO 04/21/2021 J15.212 Pneumonia due to Methicillin [...] and chronic respiratory fa ilure with hypercapnia iTmmy Rodríguez MD 04/10/2021 G47.33 Obstructive sleep apnea [...] 03/26/2021 J96.01 Acute respiratory failure with h ypHaley Roth M.D. 03/26/2021 J96.02 Acute respiratory failure with h Haley Valadez M.D. 03/26/2021 J45.901 Unspecified asthma with (acute) exacerbation Haley Bailey M.D. 03/26/2021 I50.9 Heart failure, unspecified Haley Ozuna M.D. 03/25/2021 J96.01 Acute respiratory failure with h ypoxia Haley Bailey M.D. 03/25/2021 J96.02 Acute respiratory failure with h ypercapHaley Oakes M.D. 03/25/2021 J45.901 Unspecified asthma with (acute) exacerbation Haley Bailey M.D. 03/25/2021 I50.9 Heart failure, unspecified Haley Ozuna M.D. 03/24/2021 J96.01 Acute respiratory failure with h ypHaley Roth M.D. 03/24/2021 J96.02 Acute respiratory failure with h calrosapHaley Oakes M.D. 03/24/2021 J45.901 Unspecified asthma with (acute) exacerbation Haley Bailey M.D. 03/24/2021 G47.33 Obstructive sleep apnea (adult) (pediatric) Haley Bailey M.D. 03/23/2021 J96.01 Acute respiratory failure with h ypHaley Roth M.D. 03/23/2021 J96.02 Acute respiratory failure with h carlosapHaley Oakes M.D. 03/23/2021 J45.901 Unspecified asthma with (acute) exacerbation Haley Bailey M.D. 03/23/2021 G47.33 Obstructive sleep apnea (adult) (pediatric) Haley Bailey M.D. 03/22/2021 J96.01 Acute respiratory failure with h ypHaley Roth M.D. 03/22/2021 J96.02 Acute respiratory failure with h carlosapHaley Oakes M.D. 03/22/2021 J45.901 Unspecified asthma with (acute) exacerbation Haley Bailey M.D. 03/22/2021 G47.33 Obstructive sleep apnea (adult) (pediatric) Haley Bailey M.D. Plan of Treatment No Information Available Functional Status Description No Information Available Mental Status Description No Information Available Referrals Description No Information Available
--- OUTSIDE RECORDS SUMMARY | 2021-08-19 16:36 | CCD ---
Author Author [facility] Organization [facility] Address Unknown Phone Unavailable Care Team Providers Care Respiratory Medicine Physician Name Role Phone Emily Santa Unavailable PROBLEMS Type Condition ICD9-CM Code IJU60-CH Code Onset Dates Condition S tatus W/U Status Risk SNOMED Code Notes Problem Reactive airway disease J45.909 Active confirmed 013452967967 Problem Hypertension I10 Active confirmed 9712716 3 Problem Hypertriglyceridemia E78.1 Active confirmed 568124808 Problem Congestive heart failure I50.9 Active confirmed 27552999 Problem Depression F32.9 Active confirmed 577445531 Problem Polyarthropathy M13.0 Active confirmed 3618 6002 Problem Irregular menstrual cycle N92.6 Active confirmed 56733875 Problem Allergic rhinitis, unspecifi ed chronicity, unspecified seasonality, unspecified trigger J30.9 Active confirmed 78778569 Problem Hyperlipidemia, unspecified hyperlipidemia type E7 8.5 Active confirmed 54718864 Problem Diastolic dysfunction I51.9 Active confirmed 2067253 Problem Major depressive disorder, single episode, moderate F32.1 Active confirmed 766265407 Problem Obstructive sleep apnea (adult) (pediatric) G47.33 Active confirmed 32426375 Problem Aortic valve sclerosis I35.8 Active confirmed 16354813 Problem Lumbago with sciatica, right side M54.41 Active confirmed 601689562 Problem Morbid obesity E66.01 Active confirmed 45998 6002 Problem Insomnia, unspecified type G47.00 Active confirmed 079843935 Problem Abnormal bleeding in menstrual cycle N93.9 Act arun confirmed 645404570 Problem BMI 60.0-69.9, adult Z68.44 Active confirmed 198462107 Problem Acute and chronic respiratory failure with hypercapnia J96.22 Active confirmed 0374949593754 Problem Maxillary sinusitis, unspecified chronicity J32.0 Active confirmed 55232485 Problem Acute and chronic respiratory failure with hypoxia J96.21 Active confirmed 05141430072316 Problem Mammogram abnormal R92.8 Active confirmed 1 35368489 Problem Hx pulmonary embolism Z86.711 Active confirmed 483518716 Problem Anxiety F41.9 Active confirmed 17627879 Problem Obesity hypoventilation syndrome E66.2 Active conf irmed 70810140 Problem Vaginal bleeding N93.9 Active confirmed 289 527429 Problem CHELA (obstructive sleep apnea) G47.33 Active confirm ed 12377830 ALLERGIES Allergen (clinical drug ingredient) Drug/Non Drug Allergy do cumented on EMR Reaction Allergy Type Onset Date Status environmental allergies itchy,waterty eyes, Non Drug Aller gy Active ENCOUNTERS from 1960 to 2021-05-23 Encounter Location Date Provider Diagnosis [place] [id number] [facility] [phone] [place] [address] May, Emily Kiet IMMUNIZATIONS Vaccine Route Administration Date Status Influenza [...] Start Da te End Date Status CPAP mask as directed please include n ecessary tubing as well Dx: G47.33 for 99 days Dec, Active Magnesium 400 MG 1 tablet with a meal Orally Twice daily for 30 days Active Triamcinolone Acetonide 0.025 % 1 application External ly Once a day for 14 day(s) Mar, Active Singulair 10 MG 1 tablet in the evening Orally Once a day for 30 Days Active Lisinopril-hydroCHLOROthiazide 20-25 MG 1 tablet Orally Once a day for 30 Days Not-Taking Lancets - as directed dx: e11.9 once a day and as needed f or 30 days Sep, Active metFORMIN HCl 500 MG 1 tablet with a meal Orally Twice daily Active Scooter Chair as directed Electric Power W heel Chair XL Dx E66.01 , R06.09 for 99 days February, Active Trazodone HCl 50 MG TAKE ONE TO TWO TABLETS BY M OUTH AT BEDTIME NEEDED for 30 Not-Taking Metoprolol Tartrate 25 MG 1 tablet with food Orally three times daily Active Walker - as directed 4Wheeled, with s eat. Large size, with hand latent fingerprint examiner, and breaks Dx. E66.01 for 99 days Jul, Ac tive Miconazole - as directed topically twice daily for 30 Days Mar, Active Test Strips - as directed dx: e11.9 once a day and as needed f or 30 Days Sep, Active busPIRone HCl 7.5 MG TAKE ONE TABLET BY MOUTH TWICE A DAY NEEDED for 30 Not-Taking Anoro Ellipta umeclidinium 62.5 mcg and vilanterol 25 mcg 1 inhalation oral once daily for 30 Days Mar, Active CPAP mask as directed needs new CPAP mask pillow Dx: G47.33 Apr, Active Proventil HFA 108 (90 Base) MCG/ACT 2 puffs Inhalation every 4 hrs as needed for 30 Days Active hydrOXYzine HCl 25 MG TAKE 1-2 TABLETS BY MOUTH 30 MINUTES BEFOR E BED for 30 Not-Taking Glucometer as directed Dx: e11.9 _ for 99 days Sep, 9 Active Venlafaxine HCl ER 37.5 MG TAKE ONE CAPSULE BY MOUTH EVERY D AY WITH FOOD for 30 Not-Taking FLUoxetine HCl 20 MG 3 tablets Orally Once a day for 30 day(s) Nov, Unknown Flonase Allergy Relief 50 MCG/ACT 1 spray in each nost ril Nasally Once a day for 30 days Active Protonix 40 MG 1 tablet Orally Once a day Active Fluoxetine 20 MG 2 capsule in the morning Orally Once a day for 90 da ys Unknown Tylenol 8 Hour Arthritis Pain 650 MG 2 tablets as needed Orally jonathan ry 8 hrs Not-Taking Melatonin 5 MG 2 tablet in the evening Orally Once a day OTC Unknown Ramelteon 8 MG 1 tablet at bedtime as needed Orally Once a day Active medroxyPROGESTERone Acetate 10 MG 1 tablet with food O rally Twice daily for 10 days Active Vitamin D 5000 1 tablet Orally Once a day Not-Taking FreeStyle Lite - as directed Glucometer -Free Style Lite Dx E11. 9 for 99 days Sep, Active Furosemide 40 MG 1 tablet Orally Once a day for 30 day(s) Active Xarelto 20 MG 1 tablet with food Orally Once a day for 30 day(s) Nov, Active CPAP PANNY @ bedtime Active Fluoxetine 20 MG 2 capsule in the morning Orally Once a d ay for 30 days duplicate Not-Taking Simvastatin 10 MG 1 tablet in the evening Orally Once a day for 30 da ys Not-Taking Xarelto 20 mg 1 tab orally once daily for 30 days duplicate Not-Taking Lisinopril-hydroCHLOROthiazide 20-25 MG 1 tablet Orally Once a day for 30 days duplicate Not-Taking Vitamin B-12 1000 MCG 1 tablet Orally Once a day Not-Taking PROCEDURES No Information RESULTS No Results REASON FOR VISIT need orders, had med questions MEDICAL (GENERAL) HISTORY Type Description Date Medical [...] Medication Name Sig Start Date Stop Date Magnesium 400 MG 1 tablet with a meal Orally Twice daily for 30 days medroxyPROGESTERone Acetate 10 MG 1 tablet with food O rally Twice daily for 10 days Next Appt Details Provider Name:Reggie Zuniga, 2021-05-1 7 12:00:00 AM, [address] [facility], , [place], [address], Provider Name:Jahairageorge Driver, 2021-05-25 02:45:00 PM, [address] [facility], , [place], [address], Provider Name:Laura Sloan, 2021-07-19 01:00:00 PM, [address] [facility], , [place], [address], Insurance Providers Payer Name Payer Address Payer Phone Insured Name Patient Relati onship to Insured Coverage Start Date Coverage End Date [facility] [employer] [employer] DEPT [address] [facility] [phone] MARLENY QUINONEZ 2019
--- OUTSIDE RECORDS SUMMARY | 2021-08-19 16:37 | CCD | Continuity of Care Document ---
Author Author Ela TSANG M.D. Organization Unknown Address [address] [place] [address] Phone [phone] Care Team Providers Care Senior Sharepoint Developer Name Role Phone Ninfa Arnett AUTM [phone] Emily Santa P.A.-C AUTM [phone] AUTM Unavailable Problems Active Problems Provider Date [...] Available Procedures Date Code Description Status 04/23/2021 96840 Hospital Subsequent Care Level 2 Completed 04/22/2021 74399 [facility] Care First 30-74 Minute s Completed 04/21/2021 69552 [facility] 30-74 Minute s Completed 04/20/2021 90961 [facility] 30-74 Minute s Completed 04/19/2021 78270 [facility] 30-74 Minute s Completed 04/18/2021 97141 [facility] 30-74 Minute s Completed 04/17/2021 53062 Critical Care First 30-74 Minute s Completed 04/16/2021 20736 [facility] First 30-74 Minute s Completed 04/15/2021 10302 Critical Care Addl 30 Min Comple nina 04/15/2021 36489 [facility] 30-74 Minute s Completed 04/14/2021 53221 Hospital Subsequent Care Level 2 Completed 04/13/2021 66028 Hospital Subsequent Care Level 2 Completed 04/12/2021 58367 Hospital Subsequent Care Level 2 Completed 04/11/2021 47845 Hospital Subsequent Care Level 2 Completed 04/10/2021 05651 Critical Care First 30-74 Minute s Completed 04/09/2021 48253 Critical Care First 30-74 Minute s Completed 03/26/2021 97980 Hospital Subsequent Care Level 2 Completed 03/25/2021 64900 Critical Care First 30-74 Minute s Completed 03/24/2021 50551 Critical [facility] 30-74 Minute s Completed 03/23/2021 60277 Hospital Subsequent Care Level 2 Completed 03/22/2021 67035 Critical Care First 30-74 Minute s Completed Medical Devices Description No Information Available Encounters Type Date Location Provider Dx Diagnosis Office Visit 04/23/2021 1:[facility]a [facility] Haley Hines M.D. J96.21 Acute and chronic respirator y failure with hypoxia J96.22 Acute and chronic respirator y failure with hypercapnia J15.212 Pneumonia due to Methicillin resistant Staphylococcus aureus I50.9 Heart failure, unspecified Office Visit 04/22/2021 1:23a [facility] Haley Hines M.D. J96.21 Acute and chronic respirator y failure with hypoxia J96.22 Acute and chronic respirator y failure with hypercapnia J15.212 Pneumonia due to Methicillin resistant Staphylococcus aureus I50.9 Heart failure, unspecified Office Visit 04/21/2021 1:23a [facility] D avid P. Rechlin, DO J96.21 Acute and chronic respirator y failure with hypoxia J96.22 Acute and chronic respirator y failure with hypercapnia J15.212 Pneumonia due to Methicillin resistant Staphylococcus aureus I50.9 Heart failure, unspecified Office Visit 04/20/2021 1:23a [facility] D avid P. Rechlin, DO J96.21 Acute and chronic respirator y failure with hypoxia J96.22 Acute and chronic respirator y failure with hypercapnia J15.212 Pneumonia due to Methicillin resistant Staphylococcus aureus I50.9 Heart failure, unspecified Office Visit 04/19/2021 1:23a [facility] D avid P. Rechlin, DO J96.21 Acute and chronic respirator y failure with hypoxia J96.22 Acute and chronic respirator y failure with hypercapnia J15.212 Pneumonia due to Methicillin resistant Staphylococcus aureus I50.9 Heart failure, unspecified Office Visit 04/18/2021 1:23a [facility] D avid P. Rechlin, DO J96.21 Acute and chronic respirator y failure with hypoxia J96.22 Acute and chronic respirator y failure with hypercapnia J15.212 Pneumonia due to Methicillin resistant Staphylococcus aureus I50.9 Heart failure, unspecified Office Visit 04/17/2021 1:23a [facility] D avid P. Rechlin, DO J96.21 Acute and chronic respirator y failure with hypoxia J96.22 Acute and chronic respirator y failure with hypercapnia J15.212 Pneumonia due to Methicillin resistant Staphylococcus aureus R60.1 Generalized edema Office Visit 04/16/2021 1:23a [facility] D avid P. Rechlin, DO J96.21 Acute and chronic respirator y failure with hypoxia J96.22 Acute and chronic respirator y failure with hypercapnia I50.9 Heart failure, unspecified E66.2 Morbid (severe) obesity with alveolar hypoventilation Office Visit 04/15/2021 1:23a [facility] D avid P. Rechlin, DO J96.21 Acute and chronic respirator y failure with hypoxia J96.22 Acute and chronic respirator y failure with hypercapnia I50.9 Heart failure, unspecified E66.2 Morbid (severe) obesity with alveolar hypoventilation Office Visit 04/14/2021 1:23a [facility] Og Rodríguez MD J96.21 Acute and chronic respiratory failure wi th hypoxia R41.82 Altered mental status, unspe cified E66.2 Morbid (severe) obesity with alveolar hypoventilation I50.9 Heart failure, unspecified Office Visit 04/13/2021 1:23a [facility] Og Rodríguez MD J96.21 Acute and chronic respiratory failure wi th hypoxia R41.82 Altered mental status, unspe cified E66.2 Morbid (severe) obesity with alveolar hypoventilation I50.9 Heart failure, unspecified Office Visit 04/12/2021 1:23a [facility] Og Rodríguez MD R41.82 Altered mental status, unspecified J96.21 Acute and chronic respirator y failure with hypoxia E66.2 Morbid (severe) obesity with alveolar hypoventilation I50.9 Heart failure, unspecified Office Visit 04/11/2021 1:23a [facility] Og Rodríguez MD R41.82 Altered mental status, unspecified E66.2 Morbid (severe) obesity with alveolar hypoventilation I50.9 Heart failure, unspecified J96.21 Acute and chronic respirator y failure with hypoxia Office Visit 04/10/2021 1:23a [facility] Og Rodríguez MD J96.21 Acute and chronic respiratory failure wi th hypoxia J96.22 Acute and chronic respirator y failure with hypercapnia G47.33 Obstructive sleep apnea (annelise lt) (pediatric) I50.9 Heart failure, unspecified Office Visit 04/09/2021 1:23a [facility] Og Rodríguez MD J96.21 Acute and chronic respiratory failure wi th hypoxia J96.22 Acute and chronic respirator y failure with hypercapnia G47.33 Obstructive sleep apnea (annelise lt) (pediatric) 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 J96.01 Acute respiratory failure wi th hypoxia J96.02 Acute respiratory failure wi th hypercapnia J45.901 Unspecified asthma with (acu te) exacerbation I50.9 Heart failure, unspecified Office Visit 03/25/2021 1:23a [facility] Haley Hines M.D. J96.01 Acute respiratory failure wi th hypoxia J96.02 Acute respiratory failure wi th hypercapnia J45.901 Unspecified asthma with (acu te) exacerbation I50.9 Heart failure, unspecified Office Visit 03/24/2021 1:23a [facility] Haley Hines M.D. J96.01 Acute respiratory failure wi th hypoxia J96.02 Acute respiratory failure wi th hypercapnia J45.901 Unspecified asthma with (acu te) exacerbation G47.33 Obstructive sleep apnea (annelise lt) (pediatric) Office Visit 03/23/2021 1:23a [facility] Haley Hines M.D. J96.01 Acute respiratory failure wi th hypoxia J96.02 Acute respiratory failure wi th hypercapnia J45.901 Unspecified asthma with (acu te) exacerbation G47.33 Obstructive sleep apnea (annelise lt) (pediatric) Office Visit 03/22/2021 1:23a [facility] Haley Hines M.D. J96.01 Acute respiratory [...] 9:00 am - Jaycob Lozano DO at [facility] Functional Status Description No Information Available Mental Status Description No Information Available Referrals Description No Information Available
--- OUTSIDE RECORDS SUMMARY | 2021-08-19 16:38 | CCD ---
Author Author [facility] Organization [facility] Address Unknown Phone Unavailable Care Team Providers Care Consultant Intern Name Role Phone Haley Bailey MD Unavailable Unavailable Haley Bailey MD Unavailable Unavailable Haley Bailey MD Unavailable Unavailable Haley Bailey MD Unavailable Unavailable Haley Bailey MD Unavailable Unavailable Haley Bailey MD Unavailable Unavailable Haley Bailey MD Unavailable Unavailable Haley Bailey MD Unavailable Unavailable Haley Bailey MD Unavailable Unavailable Haley Bailey MD Unavailable Unavailable Haley Bailey MD Unavailable Unavailable Haley Bailey MD Unavailable Unavailable Haley Bailey MD Unavailable Unavailable Haley Bailey MD Unavailable Unavailable Haley Bailey MD Unavailable Unavailable Haley Bailey MD Unavailable Unavailable Haley Bailey MD Unavailable Unavailable Haley Bailey MD Unavailable Unavailable Haley Bailey MD Unavailable Unavailable Haley Bailey MD Unavailable Unavailable Haley Bailey MD Unavailable Unavailable Haley Bailey MD Unavailable Unavailable Haley Bailey MD Unavailable Unavailable Haley Bailey MD Unavailable Unavailable Haley Bailey MD Unavailable Unavailable Haley Bailey MD Unavailable Unavailable LeoHaley pro MD Unavailable Unavailable Leo, Haley NORIEGA Unavailable Unavailable Leo, Haley NORIEGA Unavailable Unavailable Leo, Haley NORIEGA Unavailable Unavailable Rechlin, P Jaycob DO Unavailable Unavailable Rechlin, P Jaycob DO Unavailable Unavailable Rechlin, P Jaycob DO Unavailable Unavailable Rechlin, P Jaycob DO Unavailable Unavailable Rechlin, P Jaycob DO Unavailable Unavailable Rechlin, P Jaycob DO Unavailable Unavailable Rechlin, P Jaycob DO Unavailable Unavailable Rechlin, P Jaycob DO Unavailable Unavailable Rechlin, P Jaycob DO Unavailable Unavailable Rechlin, P Jaycob DO Unavailable Unavailable Rechlin, P Jaycob DO Unavailable Unavailable Rechlin, P Jaycob DO Unavailable Unavailable Rechlin, P Jaycob DO Unavailable Unavailable Rechlin, P Jaycob DO Unavailable Unavailable Rechlin, P Jaycob DO Unavailable Unavailable Rechlin, P Jaycob DO Unavailable Unavailable Rechlin, P Jaycob DO Unavailable Unavailable Rechlin, P Jaycob DO Unavailable Unavailable Rechlin, P Jaycob DO Unavailable Unavailable Rechlin, P Jaycob DO Unavailable Unavailable Rechlin, P Jaycob DO Unavailable Unavailable Rechlin, P Jaycob DO Unavailable Unavailable Rechlin, P Jyacob DO Unavailable Unavailable Rechlin, P Jaycob DO Unavailable Unavailable Rechlin, P Jaycob DO Unavailable Unavailable Rechlin, P Jaycob DO Unavailable Unavailable Rechlin, P Jaycob DO Unavailable Unavailable Rechlin, P Jaycob DO Unavailable Unavailable Rechlin, P Jaycob DO Unavailable Unavailable Rechlin, P Jaycob DO Unavailable Unavailable Rechlin, P Jaycob DO Unavailable Unavailable Rechlin, P Jaycob DO Unavailable Unavailable Rechlin, P Jaycob DO Unavailable Unavailable Rechlin, P Jaycob DO Unavailable Unavailable Rechlin, P Jaycob DO Unavailable Unavailable Rechlin, P Jaycob DO Unavailable Unavailable Rechlin, P Jaycob DO Unavailable Unavailable Rechlin, P Jaycob DO Unavailable Unavailable Rechlin, P Jaycob DO Unavailable Unavailable Rechlin, P Jaycob DO Unavailable Unavailable Rechlin, P Jaycob DO Unavailable Unavailable Rechlin, P Jaycob DO Unavailable Unavailable Rechlin, P Jaycob DO Unavailable Unavailable Rechlin, P Jaycob DO Unavailable Unavailable Rechlin, P Jaycob DO Unavailable Unavailable Rechlin, P Jaycob DO Unavailable Unavailable Rechlin, P Jaycob DO Unavailable Unavailable Rechlin, P Jaycob DO Unavailable Unavailable Rechlin, P Jaycob DO Unavailable Unavailable Rechlin, P Jaycob DO Unavailable Unavailable Rechlin, P Jaycob DO Unavailable Unavailable Chad Rodríguez MD Unavailable Unavailable Chad Rodríguez MD Unavailable Unavailable Chad Rodríguez MD Unavailable Unavailable Chad Rodríguez MD Unavailable Unavailable Chad Rodríguez MD Unavailable Unavailable Chad Rodríguez MD Unavailable Unavailable Chad Rodríguez MD Unavailable Unavailable Chad Rodríguez MD Unavailable Unavailable Rodríguez, Chad Warner MD Unavailable Unavailable Rodríguez, Chad Warner MD Unavailable Unavailable Rodríguez, Chad Warner MD Unavailable Unavailable Rodríguez, Chad Warner MD Unavailable Unavailable Rodríguez, Chad Warner MD Unavailable Unavailable Rodríguez, Chad Warner MD Unavailable Unavailable Rodríguez, Chda Warner MD Unavailable Unavailable Rodríguez, Chad Warner MD Unavailable Unavailable Rodríguez, Chad Warner MD Unavailable Unavailable Rodríguez, Chad Warner MD Unavailable Unavailable Rodríguez, Chad Warner MD Unavailable Unavailable Rodríguez, Chad Warner MD Unavailable Unavailable Rodríguez, Chad Warner MD Unavailable Unavailable Rodríguez, Chad Warner MD Unavailable Unavailable Rodríguez, Chad Warner MD Unavailable Unavailable Rodríguez, Chad Warner MD Unavailable Unavailable Rodríguez, Chad Warner MD Unavailable Unavailable Rodríguez, Chad Warner MD Unavailable Unavailable Rodríguez, Chad Warner MD Unavailable Unavailable Rodríguez, Chad Warner MD Unavailable Unavailable Rodríguez, Chad Warner MD Unavailable Unavailable Rodríguez, Chad Warner MD Unavailable Unavailable Rodríguez, Chad Warner MD Unavailable Unavailable Rodríguez, Chad Warner MD Unavailable Unavailable Rodríguez, Chad Warner MD Unavailable Unavailable Rodríguez, Chad Warner MD Unavailable Unavailable Rodríguez, Chad Warner MD Unavailable Unavailable Rodríguez, Chad Warner MD Unavailable Unavailable Rodríguez, Chad Warner MD Unavailable Unavailable Rodríguez, Chad Warner MD Unavailable Unavailable Rodríguez, Chad Warner MD Unavailable Unavailable Rodríguez, Chad Warner MD Unavailable Unavailable Rodríguez, Chad Warner MD Unavailable Unavailable Rodríguez, Chad Warner MD Unavailable Unavailable Rodríguez, Chad Warner MD Unavailable Unavailable Rodríguez, Chad Warner MD Unavailable Unavailable Rodríguez, Chad Warner MD Unavailable Unavailable Rodríguez, Chad Warner MD Unavailable Unavailable Rodríguez, Chad Warner MD Unavailable Unavailable Rodríguez, Chad Warner MD Unavailable Unavailable Rodríguez, Chad Warner MD Unavailable Unavailable Rodríguez, Chad Warner MD Unavailable Unavailable Rodríguez, Chad Warner MD Unavailable Unavailable Rodríguez, Chad Warner MD Unavailable Unavailable Rodríguez, Chad Warner MD Unavailable Unavailable Rodríguez, Chad Warner MD Unavailable Unavailable Re-disclosure Warning The records that you are about to access may contain information from federally-assisted alcohol or drug abuse programs. If such information is present, then the following federally mandated warning applies: This information has been disclosed to you from records protected by federal confidentiality rules (42 CFR part 2). The federal rules prohibit you from making any further disclosure of this information unless further disclosure is expressly permitted by the written consent of the person to whom it pertains or as otherwise permitted by 42 CFR part 2. A general authorization for the release of medical or other information is NOT sufficient for this purpose. The Federal rules restrict any use of the information to criminally investigate or prosecute any alcohol or drug abuse patient.The records that you are about to access may contain highly sensitive health information, the redisclosure of which is protected by Article 27-F of the [facility] Public Health law. If you continue you may have access to information: Regarding HIV / AIDS; Provided by facilities licensed or operated by the [facility] Office of Mental Health; or Provided by the [facility] Office for People With Developmental Disabilities. If such information is present, then the following [facility] mandated warning applies: This information has been disclosed to you from confidential records which are protected by state law. State law prohibits you from making any further disclosure of this information without the specific written consent of the person to whom it pertains, or as otherwise permitted by law. Any unauthorized further disclosure in violation of state law may result in a fine or penitentiary sentence or both. A general authorization for the release of medical or other information is NOT sufficient authorization for further disc losure. Encounters Encounter Providers Location Date Indications Data Source(s ) Unknown [address] [facility] [id number] 08/09/2021 12:00:00 AM EDT [facility] Unknown [address] [facility] [address] 06/15/2021 12:00:00 AM EDT [facility]CW1 [facility] Unknown [address] [facility] [address] 06/14/2021 12:00:00 AM EDT eCW1 [facility] Unknown [address] [facility] [place] [address] 05/28/2021 12:00:00 AM EDT eCW1 [facility] Unknown [address] [facility] Y [address] 05/26/2021 12:00:00 AM EDT [facility] Outpatient [address] [facility] Y [address] 05/25/2021 12:00:00 AM EDT eCW1 [facility] Unknown [address] [facility] Y [address] 05/25/2021 12:00:00 AM EDT eCW1 [facility] Outpatient [address] [facility] [id number] 05/24/2021 12:00:00 AM EDT [facility]1 ([facility]) [place] [address] [facility] [place] [address] 05/18/2021 12:00:00 AM EDT [facility] [place] [address] [facility] [address] 05/18/2021 12:00:00 AM EDT [facility] [place] [address] [facility] [address] 05/16/2021 12:00:00 AM EDT [facility] [place] [address] [facility] [address] 05/12/2021 12:00:00 AM EDT [facility] [place] [address] [facility] [address] 05/12/2021 12:00:00 AM EDT [facility] [place] [address] [facility] [place] [address] 05/09/2021 12:00:00 AM EDT [facility] Outpatient Attender: Haley Torres/[place] 04/23/2021 01:23:00 AM EDT [facility] ([facility]) Outpatient Attender: Haley Torres/[place] 04/22/2021 01:23:00 AM EDT [facility] ([facility]) Outpatient Attender: Jaycob Marquez/[place] n[place] 04/21/2021 01:23:00 AM EDT [facility] ([facility]) Outpatient Attender: Jaycob Marquez/[place] n[place] 04/20/2021 01:23:00 AM EDT [facility] ([facility]) Outpatient Attender: Jaycob Marquez/[place] n[place] 04/19/2021 01:23:00 AM EDT [facility] ([facility] Outpatient Attender: Jaycob Marquez/[place] n[place] 04/18/2021 01:23:00 AM EDT [facility] ([facility]) Outpatient Attender: Jaycob Marquez/[place] n[place] 04/17/2021 01:23:00 AM EDT [facility] ([facility]) Outpatient Attender: Jaycob Marquez/[place] 04/16/2021 01:23:00 AM EDT [facility] ([facility] Outpatient Attender: Jaycob Marquez/[place]i n[place] 04/15/2021 01:23:00 AM EDT [facility] ([facility]) Outpatient Attender: Timmy Torres/[place] 04/14/2021 01:23:00 AM EDT [facility] ([facility] Outpatient Attender: Timmy Torres/[place] 04/13/2021 01:23:00 AM EDT [facility] ([facility]) Outpatient Attender: Timmy Torres/[place] 04/12/2021 01:23:00 AM EDT [facility] ([facility]) Outpatient Attender: Timmy Torres/[place] 04/11/2021 01:23:00 AM EDT [facility] ([facility]) Outpatient Attender: Timmy Torres/[place] 04/10/2021 01:23:00 AM EDT [facility] ([facility]) Outpatient Attender: Timmy Torres/[place] 04/09/2021 01:23:00 AM EDT [facility] ([facility]) Unknown [address] [place], [place] [address], [place] [address] 04/05/2021 12:00:00 AM EDT eCW1 ([facility]) Outpatient Attender: Haley Torres/[place] n[place] 03/26/2021 01:23:00 AM EDT [facility] ([facility] Outpatient Attender: Haley Torres/[place]i n[place] 03/25/2021 01:23:00 AM EDT [facility] ([facility] Outpatient Attender: Haley Torres/[place]i n[place] 03/24/2021 01:23:00 AM EDT [facility] ([facility] Outpatient Attender: Haley Torres/[place]i n[place] 03/23/2021 01:23:00 AM EDT [facility] ([facility] Outpatient Attender: Haley Torres/[place]i n[place] 03/22/2021 01:23:00 AM EDT [facility] [place] [address] [facility] [address] 03/14/2021 12:00:00 AM EDT eCW1 ([facility]) [place] [address] [facility] [address] 03/11/2021 12:00:00 AM EDT eCW1 ([facility]) Unknown [address] [facility] [address] 02/16/2021 12:00:00 AM EDT eCW1 ([facility]) [place] [address] [facility] [address] 12/02/2020 12:00:00 AM EST eCW1 ([facility]) [place] [address] [facility] [address] 11/29/2020 12:00:00 AM EST eCW1 ([facility]) Unknown [address] [facility] [address] 11/29/2020 12:00:00 AM EST eCW1 ([facility]) Unknown [address] [facility] [address] 11/29/2020 12:00:00 AM EST eCW1 ([facility]) Outpatient [address] [facility] [address] 11/26/2020 12:00:00 AM EST eCW1 ([facility]) [place] [address] [facility] [address] 11/26/2020 12:00:00 AM EST eCW1 ([facility]) Unknown [address] [facility] [address] 11/19/2020 12:00:00 AM EST eCW1 ([facility]) Unknown [address] [facility] [address] 11/19/2020 12:00:00 AM EST eCW1 ([facility]) [place] [address] [facility] [address] 11/16/2020 12:00:00 AM EST eCW1 ([facility]) [place] [address] [facility] [address] 11/12/2020 12:00:00 AM EST eCW1 ([facility]) Unknown [address] [facility] [address] 10/25/2020 12:00:00 AM EST eCW1 ([facility]) Unknown [address] [facility] [address] 10/23/2020 12:00:00 AM EST eCW1 ([facility]) Unknown [address] [facility] [address] 10/21/2020 12:00:00 AM EST eCW1 ([facility]) Unknown [address] [facility] [address] 10/04/2020 12:00:00 AM EST eCW1 ([facility]) Unknown [address] [facility] [address] 08/11/2020 12:00:00 AM EST eCW1 ([facility]) Unknown [address] [facility] [address] 08/03/2020 12:00:00 AM EDT eCW1 ([facility]) Unknown [address] [facility] [address] 07/27/2020 12:00:00 AM EDT eCW1 ([facility]) Unknown [address] [facility] [address] 06/29/2020 12:00:00 AM EDT eCW1 ([facility]) Unknown [address] [facility] [address] 06/29/2020 12:00:00 AM EDT eCW1 ([facility]) Unknown [address] [facility] [address] 06/29/2020 12:00:00 AM EDT eCW1 ([facility]) Immunizations Vaccine Date Status Description Data Source(s) COVID-19 VACCINE Moderna 02/07/2021 12:00:00 AM EDT completed [facility] Vaccine Series Complete: YESThis Data wa s Submitted to [facility] Via [employer]. COVID-19 VACC,MRNA(MODERNA)/PF 02/07/2021 12:00:00 AM EDT completed [facility] COVID-19 VACCINE Moderna 01/07/2021 12:00:00 AM EDT completed [facility] Vaccine Series Complete: NOThis Data was Submitted to [facility] Via [employer]. COVID-19 VACCINE, MRNA-[id number], LNP-S (MODERNA)/PF 01/07/2021 1 2:00:00 AM EDT completed [facility] Medications Medication Brand Name Start Date Product Form Dose Route Admi nistrative Instructions Pharmacy Instructions Status Indications Reaction Description Data Source(s) 400 mg (241.3 mg magnesium) 07/20/2021 12:00:00 AM EDT table t 60 TAKE ONE TABLET BY MOUTH TWICE A DAY WITH FOOD TAKE ONE TABLET BY MOUTH TWICE A DAY WIT H FOOD SOLD: 07/20/2021 [facility] 20 mg 06/20/2021 12:00:00 AM EDT tablet 30 TAKE ONE TABLET BY MOUTH EVERY DAY WITH FOOD TAKE ONE TABLET BY MOUTH EVERY DAY WITH FOOD SOLD: 06/20/2021 [facility] 20 mg 06/20/2021 12:00:00 AM EDT tablet 30 TAKE ONE TABLET BY MOUTH EVERY DAY WITH FOOD TAKE ONE TABLET BY MOUTH EVERY DAY WITH FOOD SOLD: 2021 [facility] 400 mg (241.3 mg magnesium) 06/15/2021 12:00:00 AM EDT table t 60 TAKE ONE TABLET BY MOUTH TWICE A DAY WITH FOOD TAKE ONE TABLET BY MOUTH TWICE A DAY WIT H FOOD SOLD: 06/15/2021 [facility] montelukast 10 MG Oral Tablet MONTELUKAST SODIUM 06/13/2021 12:0 0:00 AM EDT tablet 30 TAKE ONE TABLET BY MOUTH EVERY E VENING TAKE ONE TABLET BY MOUTH EVERY EVENING SOLD: 08/08/2021 [facility] montelukast 10 MG Oral Tablet MONTELUKAST SODIUM 06/13/2021 12:0 0:00 AM EDT tablet 30 TAKE ONE TABLET BY MOUTH EVERY E VENING TAKE ONE TABLET BY MOUTH EVERY EVENING SOLD: 07/11/2021 [facility] montelukast 10 MG Oral Tablet MONTELUKAST SODIUM 06/13/2021 12:0 0:00 AM EDT tablet 30 TAKE ONE TABLET BY MOUTH EVERY E VENING TAKE ONE TABLET BY MOUTH EVERY EVENING SOLD: 06/13/2021 [facility] 500 mg 06/02/2021 12:00:00 AM EDT tablet 60 TAKE ONE TABLET BY MOUTH TWICE A DAY WITH FOOD TAKE ONE TABLET BY MOUTH TWICE A DAY WITH FOOD SOLD: 2021 [facility] 500 mg 06/02/2021 12:00:00 AM EDT tablet 60 TAKE ONE TABLET BY MOUTH TWICE A DAY WITH FOOD TAKE ONE TABLET BY MOUTH TWICE A DAY WITH FOOD SOLD: 06/02/2021 [facility] 8 mg 05/31/2021 12:00:00 AM EDT tablet 30 TAKE ONE TABLET BY MOUTH EVERY DAY AT BEDTIME NEEDED TAKE ONE TABLET BY MOUTH EVERY DAY AT BEDTIME NEEDE D SOLD: 06/28/2021 [facility] 8 mg 05/31/2021 12:00:00 AM EDT tablet 30 TAKE ONE TABLET BY MOUTH EVERY DAY AT BEDTIME NEEDED TAKE ONE TABLET BY MOUTH EVERY DAY AT BEDTIME NEEDE D SOLD: 05/31/2021 [facility] 8 mg 05/31/2021 12:00:00 AM EDT tablet 30 TAKE ONE TABLET BY MOUTH EVERY DAY AT BEDTIME NEEDED TAKE ONE TABLET BY MOUTH EVERY DAY AT BEDTIME NEEDE D SOLD: 07/25/2021 [facility] 25 mg 05/28/2021 12:00:00 AM EDT tablet 90 TAKE ONE TABLET BY MOUTH WITH FOOD THREE TIMES A DAY TAKE ONE TABLET BY MOUTH WITH FOOD THREE TIMES A DAY SOLD: 07/23/2021 [facility] 25 mg 05/28/2021 12:00:00 AM EDT tablet 90 TAKE ONE TABLET BY MOUTH WITH FOOD THREE TIMES A DAY TAKE ONE TABLET BY MOUTH WITH FOOD THREE TIMES A DAY SOLD: 05/29/2021 [facility] pantoprazole 40 MG Delayed Release Oral Tablet PANTOPRAZOLE SODIUM 05/28/2021 12:00:00 AM EDT tablet,delayed release (DR/EC) 30 T NARENDRA ONE TABLET BY MOUTH EVERY DAY TAKE ONE TABLET BY MOUTH EVERY DAY SOLD: 06/25/2021 [facility] 25 mg 05/28/2021 12:00:00 AM EDT tablet 90 TAKE ONE TABLET BY MOUTH WITH FOOD THREE TIMES A DAY TAKE ONE TABLET BY MOUTH WITH FOOD THREE TIMES A DAY SOLD: 06/25/2021 [facility] 40 mg 05/28/2021 12:00:00 AM EDT tablet 60 TAKE ONE TABLET BY MOUTH TWICE A DAY TAKE ONE TABLET BY MOUTH TWICE A DAY SOLD: 06/25/2021 [facility] 40 mg 05/28/2021 12:00:00 AM EDT tablet 60 TAKE ONE TABLET BY MOUTH TWICE A DAY TAKE ONE TABLET BY MOUTH TWICE A DAY SOLD: 05/29/2021 [facility] pantoprazole 40 MG Delayed Release Oral Tablet PANTOPRAZOLE SODIUM 05/28/2021 12:00:00 AM EDT tablet,delayed release (DR/EC) 30 T NARENDRA ONE TABLET BY MOUTH EVERY DAY TAKE ONE TABLET BY MOUTH EVERY DAY SOLD: 05/29/2021 [facility] 40 mg 05/28/2021 12:00:00 AM EDT tablet 60 TAKE ONE TABLET BY MOUTH TWICE A DAY TAKE ONE TABLET BY MOUTH TWICE A DAY SOLD: 07/23/2021 [facility] pantoprazole 40 MG Delayed Release Oral Tablet PANTOPRAZOLE SODIUM 05/28/2021 12:00:00 AM EDT tablet,delayed release (DR/EC) 30 T NARENDRA ONE TABLET BY MOUTH EVERY DAY TAKE ONE TABLET BY MOUTH EVERY DAY SOLD: 07/23/2021 [facility] gabapentin 100 MG Oral Capsule Gabapentin 100 MG Gabapentin 100 MG 05/25/2021 12:00:00 AM EDT 1.0 {capsule} active G abapentin 100 MG eCW1 ([facility]) 100 mg 05/25/2021 12:00:00 AM EDT capsule 90 TAKE ONE CAPSULE BY MOUTH THREE TIMES A DAY TAKE ONE CAPSULE BY MOUTH THREE TIMES A DAY SOLD: 06/22/2021 [employer] gabapentin 100 MG Oral Capsule Gabapentin 100 MG Gabapentin 100 MG 05/25/2021 12:00:00 AM EDT 1.0 {capsule} active G abapentin 100 MG eCW1 ([facility]) 90 mcg/actuation 05/25/2021 12:00:00 AM EDT HFA aerosol inha ler 6 INHALE 2 PUFFS BY MOUTH EVERY 4 HOURS NEEDED INHALE 2 PUFFS BY MOUTH EVERY 4 HOURS NEEDED SOLD: 08/09/2021 [facility] 100 mg 05/25/2021 12:00:00 AM EDT capsule 90 TAKE ONE CAPSULE BY MOUTH THREE TIMES A DAY TAKE ONE CAPSULE BY MOUTH THREE TIMES A DAY SOLD: 07/20/2021 [facility] gabapentin 100 MG Oral Capsule Gabapentin 100 MG Gabapentin 100 MG 05/25/2021 12:00:00 AM EDT 1.0 {capsule} active G abapentin 100 MG eCW1 ([facility]) gabapentin 100 MG Oral Capsule Gabapentin 100 MG Gabapentin 100 MG 05/25/2021 12:00:00 AM EDT 1.0 {capsule} active G abapentin 100 MG eCW1 ([facility]) 90 mcg/actuation 05/25/2021 12:00:00 AM EDT HFA aerosol inha ler 6 INHALE 2 PUFFS BY MOUTH EVERY 4 HOURS NEEDED INHALE 2 PUFFS BY MOUTH EVERY 4 HOURS NEEDED SOLD: 07/25/2021 [facility] BLOOD-GLUCOSE METER 05/25/2021 12:00:00 AM EDT kit 1 USE DIRECTED USE DIRECTED SOLD: 05/25/2021 [facility] 100 mg 05/25/2021 12:00:00 AM EDT capsule 90 TAKE ONE CAPSULE BY MOUTH THREE TIMES A DAY TAKE ONE CAPSULE BY MOUTH THREE TIMES A DAY SOLD: 05/25/2021 [facility] gabapentin 100 MG Oral Capsule Gabapentin 100 MG Gabapentin 100 MG 05/25/2021 12:00:00 AM EDT 1.0 {capsule} active G abapentin 100 MG eCW1 ([facility]) gabapentin 100 MG Oral Capsule Gabapentin 100 MG Gabapentin 100 MG 05/25/2021 12:00:00 AM EDT 1.0 {capsule} active G abapentin 100 MG eCW1 ([facility]) 90 mcg/actuation 05/25/2021 12:00:00 AM EDT HFA aerosol inha ler 6 INHALE 2 PUFFS BY MOUTH EVERY 4 HOURS NEEDED INHALE 2 PUFFS BY MOUTH EVERY 4 HOURS NEEDED SOLD: 05/25/2021 [facility] 50 mcg/actuation 05/25/2021 12:00:00 AM EDT spray,suspension 15 SPRAY 1 SPRAY IN EACH NOSTRIL ONCE DAILY SPRAY 1 SPRAY IN EACH NOSTRIL ONCE DAILY SOLD: 06/21/2021 [facility] 10 mg 05/25/2021 12:00:00 AM EDT tablet 60 TAKE ONE TABLET BY MOUTH TWICE A DAY WITH FOOD TAKE ONE TABLET BY MOUTH TWICE A DAY WITH FOOD SOLD: 06/23/2021 [facility] 90 mcg/actuation 05/25/2021 12:00:00 AM EDT HFA aerosol inha ler 6 INHALE 2 PUFFS BY MOUTH EVERY 4 HOURS NEEDED INHALE 2 PUFFS BY MOUTH EVERY 4 HOURS NEEDED SOLD: 07/10/2021 [facility] gabapentin 100 MG Oral Capsule Gabapentin 100 MG Gabapentin 100 MG 05/25/2021 12:00:00 AM EDT 1.0 {capsule} active G abapentin 100 MG eCW1 ([facility]) 50 mcg/actuation 05/25/2021 12:00:00 AM EDT spray,suspension 15 SPRAY 1 SPRAY IN EACH NOSTRIL ONCE DAILY SPRAY 1 SPRAY IN EACH NOSTRIL ONCE DAILY SOLD: 05/25/2021 [facility] 30 ACTUAT umeclidinium 0.0625 MG/ACTUAT / vilanterol 0.025 MG/ACTUAT Dry Powder Inhaler [Anoro] 62.5-25 mcg/actuation UMECLIDINIUM BRM/VILANTEROL TR 05/25/2021 12:00:00 AM EDT blister with device 60 INHALE 1 PUFF BY M OUTH ONCE DAILY INHALE 1 PUFF BY MOUTH ONCE DAILY SOLD: 07/16/2021 [facility] 10 mg 05/25/2021 12:00:00 AM EDT tablet 60 TAKE ONE TABLET BY MOUTH TWICE A DAY WITH FOOD TAKE ONE TABLET BY MOUTH TWICE A DAY WITH FOOD SOLD: 05/25/2021 [facility] 90 mcg/actuation 05/25/2021 12:00:00 AM EDT HFA aerosol inha ler 6 INHALE 2 PUFFS BY MOUTH EVERY 4 HOURS NEEDED INHALE 2 PUFFS BY MOUTH EVERY 4 HOURS NEEDED SOLD: 06/10/2021 [facility] 30 ACTUAT umeclidinium 0.0625 MG/ACTUAT / vilanterol 0.025 MG/ACTUAT Dry Powder Inhaler [Anoro] 62.5-25 mcg/actuation UMECLIDINIUM BRM/VILANTEROL TR 05/25/2021 12:00:00 AM EDT blister with device 60 INHALE 1 PUFF BY M OUTH ONCE DAILY INHALE 1 PUFF BY MOUTH ONCE DAILY SOLD: 05/25/2021 [facility] 90 mcg/actuation 05/25/2021 12:00:00 AM EDT HFA aerosol inha ler 6 INHALE 2 PUFFS BY MOUTH EVERY 4 HOURS NEEDED INHALE 2 PUFFS BY MOUTH EVERY 4 HOURS NEEDED SOLD: 06/25/2021 [facility] 10 mg 05/25/2021 12:00:00 AM EDT tablet 60 TAKE ONE TABLET BY MOUTH TWICE A DAY WITH FOOD TAKE ONE TABLET BY MOUTH TWICE A DAY WITH FOOD SOLD: 07/21/2021 [facility] gabapentin 100 MG Oral Capsule Gabapentin 100 MG Gabapentin 100 MG 05/25/2021 12:00:00 AM EDT 1.0 {capsule} active G abapentin 100 MG eCW1 ([facility]) gabapentin 100 MG Oral Capsule Gabapentin 100 MG Gabapentin 100 MG 05/25/2021 12:00:00 AM EDT 1.0 {capsule} active G abapentin 100 MG eCW1 ([facility]) 30 ACTUAT umeclidinium 0.0625 MG/ACTUAT / vilanterol 0.025 MG/ACTUAT Dry Powder Inhaler [Anoro] 62.5-25 mcg/actuation UMECLIDINIUM BRM/VILANTEROL TR 05/25/2021 12:00:00 AM EDT blister with device 60 INHALE 1 PUFF BY M OUTH ONCE DAILY INHALE 1 PUFF BY MOUTH ONCE DAILY SOLD: 06/19/2021 [facility] 50 mcg/actuation 05/25/2021 12:00:00 AM EDT spray,suspension 15 SPRAY 1 SPRAY IN EACH NOSTRIL ONCE DAILY SPRAY 1 SPRAY IN EACH NOSTRIL ONCE DAILY SOLD: 2021 [facility] gabapentin 100 MG Oral Capsule Gabapentin 100 MG Gabapentin 100 MG 05/25/2021 12:00:00 AM EDT 1.0 {capsule} active G abapentin 100 MG eCW1 ([facility]) 10 mg 05/12/2021 12:00:00 AM EDT tablet 20 TAKE ONE TABLET BY MOUTH TWICE A DAY WITH FOOD TAKE ONE TABLET BY MOUTH TWICE A DAY WITH FOOD SOLD: 05/12/2021 [facility] 400 mg (241.3 mg magnesium) 05/12/2021 12:00:00 AM EDT table t 60 TAKE ONE TABLET BY MOUTH TWICE A DAY WITH A MEAL TAKE ONE TABLET BY MOUTH TWICE A DAY WITH A MEAL SOLD: 05/12/2021 [facility] 50 mg 05/10/2021 12:00:00 AM EDT tablet 60 TAKE 1-2 TABLETS BY MOUTH AT BEDTIME NEEDED TAKE 1-2 TABLETS BY MOUTH AT BEDTIME NEEDED SOLD: 06/07/2021 [facility] 37.5 mg 05/10/2021 12:00:00 AM EDT capsule,extended releas e 24hr 30 TAKE ONE CAPSULE BY MOUTH EVERY DAY WITH FOOD TAKE ONE CAPSULE BY MOUTH EVERY DAY WITH FOOD SOLD: 08/01/2021 [facility] 7.5 mg 05/10/2021 12:00:00 AM EDT tablet 60 TAKE ONE TABLET BY MOUTH TWICE A DAY NEEDED TAKE ONE TABLET BY MOUTH TWICE A DAY NEEDED SOLD: [facility] 7.5 mg 05/10/2021 12:00:00 AM EDT tablet 60 TAKE ONE TABLET BY MOUTH TWICE A DAY NEEDED TAKE ONE TABLET BY MOUTH TWICE A DAY NEEDED SOLD: [facility] 50 mg 05/10/2021 12:00:00 AM EDT tablet 60 TAKE 1-2 TABLETS BY MOUTH AT BEDTIME NEEDED TAKE 1-2 TABLETS BY MOUTH AT BEDTIME NEEDED SOLD: 08/01/2021 [facility] 25 mg 05/10/2021 12:00:00 AM EDT tablet 60 TAKE 1-2 TABLETS BY MOUTH 30 MINUTES BEFORE BED TAKE 1-2 TABLETS BY MOUTH 30 MINUTES BEFORE BED SOLD: 06/07/2021 [facility] 500 mg 05/10/2021 12:00:00 AM EDT tablet 60 TAKE ONE TABLET BY MOUTH TWICE A DAY WITH MEALS TAKE ONE TABLET BY MOUTH TWICE A DAY WITH MEALS SOLD: 06/25/2021 [facility] 500 mg 05/10/2021 12:00:00 AM EDT tablet 60 TAKE ONE TABLET BY MOUTH TWICE A DAY WITH MEALS TAKE ONE TABLET BY MOUTH TWICE A DAY WITH MEALS SOLD: 05/10/2021 [facility] 25 mg 05/10/2021 12:00:00 AM EDT tablet 60 TAKE 1-2 TABLETS BY MOUTH 30 MINUTES BEFORE BED TAKE 1-2 TABLETS BY MOUTH 30 MINUTES BEFORE BED SOLD: 05/10/2021 [facility] 25 mg 05/10/2021 12:00:00 AM EDT tablet 60 TAKE 1-2 TABLETS BY MOUTH 30 MINUTES BEFORE BED TAKE 1-2 TABLETS BY MOUTH 30 MINUTES BEFORE BED SOLD: 07/05/2021 [facility] 500 mg 05/10/2021 12:00:00 AM EDT tablet 60 TAKE ONE TABLET BY MOUTH TWICE A DAY WITH MEALS TAKE ONE TABLET BY MOUTH TWICE A DAY WITH MEALS SOLD: 08/10/2021 [facility] 7.5 mg 05/10/2021 12:00:00 AM EDT tablet 60 TAKE ONE TABLET BY MOUTH TWICE A DAY NEEDED TAKE ONE TABLET BY MOUTH TWICE A DAY NEEDED SOLD: [facility] 7.5 mg 05/10/2021 12:00:00 AM EDT tablet 60 TAKE ONE TABLET BY MOUTH TWICE A DAY NEEDED TAKE ONE TABLET BY MOUTH TWICE A DAY NEEDED SOLD: [facility] 37.5 mg 05/10/2021 12:00:00 AM EDT capsule,extended releas e 24hr 30 TAKE ONE CAPSULE BY MOUTH EVERY DAY WITH FOOD TAKE ONE CAPSULE BY MOUTH EVERY DAY WITH FOOD SOLD: 05/10/2021 [facility] 37.5 mg 05/10/2021 12:00:00 AM EDT capsule,extended releas e 24hr 30 TAKE ONE CAPSULE BY MOUTH EVERY DAY WITH FOOD TAKE ONE CAPSULE BY MOUTH EVERY DAY WITH FOOD SOLD: 07/04/2021 [facility] 50 mg 05/10/2021 12:00:00 AM EDT tablet 60 TAKE 1-2 TABLETS BY MOUTH AT BEDTIME NEEDED TAKE 1-2 TABLETS BY MOUTH AT BEDTIME NEEDED SOLD: 07/05/2021 [facility] 50 mg 05/10/2021 12:00:00 AM EDT tablet 60 TAKE 1-2 TABLETS BY MOUTH AT BEDTIME NEEDED TAKE 1-2 TABLETS BY MOUTH AT BEDTIME NEEDED SOLD: 05/10/2021 [facility] 37.5 mg 05/10/2021 12:00:00 AM EDT capsule,extended releas e 24hr 30 TAKE ONE CAPSULE BY MOUTH EVERY DAY WITH FOOD TAKE ONE CAPSULE BY MOUTH EVERY DAY WITH FOOD SOLD: 06/07/2021 [facility] 25 mg 05/10/2021 12:00:00 AM EDT tablet 60 TAKE 1-2 TABLETS BY MOUTH 30 MINUTES BEFORE BED TAKE 1-2 TABLETS BY MOUTH 30 MINUTES BEFORE BED SOLD: 08/01/2021 [facility] 120 ACTUAT Albuterol 0.1 MG/ACTUAT / Ipr atropium [place] 0.02 MG/ACTUAT Metered Dose Inhaler [Combivent] 20-100 mcg/actuation IPRATROPIUM/ALBUTEROL SULFATE 05/06/2021 12:00:00 AM EDT mist 4 INHALE TWO PUF FS BY MOUTH THREE TIMES A DAY INHALE TWO PUFFS BY MOUTH THREE TIMES A DAY SOLD: 05/06/2021 [facility] 20 mg 05/05/2021 12:00:00 AM EDT tablet 120 TAKE TWO TABLETS BY MOUTH TWICE A DAY TAKE TWO TABLETS BY MOUTH TWICE A DAY SOLD: 05/05/2021 [facility] 8 mg 05/05/2021 12:00:00 AM EDT tablet 30 TAKE ONE TABLET BY MOUTH AT BEDTIME TAKE ONE TABLET BY MOUTH AT BEDTIME SOLD: 05/05/2021 [facility] pantoprazole 40 MG Delayed Release Oral Tablet PANTOPRAZOLE SODIUM 05/05/2021 12:00:00 AM EDT tablet,delayed release (DR/EC) 30 T NARENDRA ONE TABLET BY MOUTH EVERY DAY TAKE ONE TABLET BY MOUTH EVERY DAY SOLD: 05/05/2021 [facility] Albuterol 0.833 MG/ML / Ipratropium Brom eileen 0.167 MG/ML Inhalation Solution 0.5 mg-3 mg(2.5 mg base)/3 mL IPRATROPIUM/ALBUTEROL SULFATE 05/05/2021 12:00:00 AM EDT solution for nebulization 90 USE 1 VIAL VIA NEBULIZER EVERY 4 HOURS USE 1 VIAL VIA NEBULIZER EVERY 4 HOURS SOLD: 05/05/2021 [facility] 40 mg 05/05/2021 12:00:00 AM EDT tablet 60 TAKE 1 TABLET BY MOUTH AT 9A.M. AND 5P.M TAKE 1 TABLET BY MOUTH AT 9A.M. AND 5P.M SOLD: 05/05/2021 [facility] 25 mg 05/05/2021 12:00:00 AM EDT tablet 90 TAKE ONE TABLET BY MOUTH THREE TIMES A DAY TAKE ONE TABLET BY MOUTH THREE TIMES A DAY SOLD: 05/05/2021 [facility] 5 mg 05/05/2021 12:00:00 AM EDT tablet 20 TAKE TWO TABLETS BY MOUTH TWICE A DAY TAKE TWO TABLETS BY MOUTH TWICE A DAY SOLD: 05/05/2021 [facility] 400 mg (241.3 mg magnesium) 05/05/2021 12:00:00 AM EDT table t 20 TAKE ONE TABLET BY MOUTH TWICE A DAY TAKE ONE TABLET BY MOUTH TWICE A DAY SOLD: 05/05/2021 [facility] 10 mg 04/05/2021 12:00:00 AM EDT tablet 60 TAKE ONE TABLET BY MOUTH TWICE A DAY TAKE ONE TABLET BY MOUTH TWICE A DAY SOLD: 04/05/2021 [facility] Anoro Ellipta umeclidinium 62.5 mcg and vilanterol 25 mcg UN K 04/04/2021 12:00:00 AM EDT active Anoro Ellipta umeclidinium 62.5 mcg and vilanterol 25 mcg eCW1 ([facility]) Anoro Ellipta umeclidinium 62.5 mcg and vilanterol 25 mcg UN K 04/04/2021 12:00:00 AM EDT active Anoro Ellipta umeclidinium 62.5 mcg and vilanterol 25 mcg eCW1 ([facility]) Anoro Ellipta umeclidinium 62.5 mcg and vilanterol 25 mcg UN K 04/04/2021 12:00:00 AM EDT active Anoro Ellipta umeclidinium 62.5 mcg and vilanterol 25 mcg eCW1 ([facility]) Anoro Ellipta umeclidinium 62.5 mcg and vilanterol 25 mcg [facility] 04/04/2021 12:00:00 AM EDT active Anoro Ellipta umeclidinium 62.5 mcg and vilanterol 25 mcg eCW1 ([facility]) Anoro Ellipta umeclidinium 62.5 mcg and vilanterol 25 mcg UN 04/04/2021 12:00:00 AM EDT active Anoro Ellipta umeclidinium 62.5 mcg and vilanterol 25 mcg eCW1 ([facility]) Anoro Ellipta umeclidinium 62.5 mcg and vilanterol 25 mcg [facility] 04/04/2021 12:00:00 AM EDT active Anoro Ellipta umeclidinium 62.5 mcg and vilanterol 25 mcg eCW1 ([facility]) Anoro Ellipta umeclidinium 62.5 mcg and vilanterol 25 mcg UN 04/04/2021 12:00:00 AM EDT active Anoro Ellipta umeclidinium 62.5 mcg and vilanterol 25 mcg eCW1 ([facility]) Anoro Ellipta umeclidinium 62.5 mcg and vilanterol 25 mcg [facility] 04/04/2021 12:00:00 AM EDT active Anoro Ellipta umeclidinium 62.5 mcg and vilanterol 25 mcg eCW1 ([facility]) 20 mg 04/04/2021 12:00:00 AM EDT tablet 30 TAKE ONE TABLET BY MOUTH EVERY DAY TAKE ONE TABLET BY MOUTH EVERY DAY SOLD: 04/04/2021 [facility] Anoro Ellipta umeclidinium 62.5 mcg and vilanterol 25 mcg K 04/04/2021 12:00:00 AM EDT active Anoro Ellipta umeclidinium 62.5 mcg and vilanterol 25 mcg eCW1 ([facility]) Anoro Ellipta umeclidinium 62.5 mcg and vilanterol 25 mcg K 04/04/2021 12:00:00 AM EDT active Anoro Ellipta umeclidinium 62.5 mcg and vilanterol 25 mcg eCW1 ([facility]) Anoro Ellipta umeclidinium 62.5 mcg and vilanterol 25 mcg K 04/04/2021 12:00:00 AM EDT active Anoro Ellipta umeclidinium 62.5 mcg and vilanterol 25 mcg eCW1 ([facility]) Anoro Ellipta umeclidinium 62.5 mcg and vilanterol 25 mcg K 04/04/2021 12:00:00 AM EDT active Anoro Ellipta umeclidinium 62.5 mcg and vilanterol 25 mcg eCW1 ([facility]) 100,000 unit/gram 04/04/2021 12:00:00 AM EDT powder 60 TOPICALLY TWO TIMES A DAY FOR 10 DAYS TOPICALLY TWO TIMES A DAY FOR 10 DAYS SOLD: 04/04/2021 [facility] Anoro Ellipta umeclidinium 62.5 mcg and vilanterol 25 mcg K 04/04/2021 12:00:00 AM EDT active Anoro Ellipta umeclidinium 62.5 mcg and vilanterol 25 mcg eCW1 ([facility]) Anoro Ellipta umeclidinium 62.5 mcg and vilanterol 25 mcg K 04/04/2021 12:00:00 AM EDT active Anoro Ellipta umeclidinium 62.5 mcg and vilanterol 25 mcg eCW1 ([facility]) Anoro Ellipta umeclidinium 62.5 mcg and vilanterol 25 mcg UN K 04/04/2021 12:00:00 AM EDT active Anoro Ellipta umeclidinium 62.5 mcg and vilanterol 25 mcg eCW1 ([facility]) Anoro Ellipta umeclidinium 62.5 mcg and vilanterol 25 mcg UN K 04/04/2021 12:00:00 AM EDT active Anoro Ellipta umeclidinium 62.5 mcg and vilanterol 25 mcg eCW1 ([facility]) 37.5 mg 03/11/2021 12:00:00 AM EDT capsule,extended releas e 24hr 30 TAKE ONE CAPSULE BY MOUTH EVERY DAY WITH FOOD TAKE ONE CAPSULE BY MOUTH EVERY DAY WITH FOOD SOLD: 03/11/2021 [facility] 37.5 mg 03/11/2021 12:00:00 AM EDT capsule,extended releas e 24hr 30 TAKE ONE CAPSULE BY MOUTH EVERY DAY WITH FOOD TAKE ONE CAPSULE BY MOUTH EVERY DAY WITH FOOD SOLD: 04/06/2021 [facility] 50 mg 03/11/2021 12:00:00 AM EDT tablet 60 TAKE ONE TO TWO TABLETS BY MOUTH AT BEDTIME NEEDED TAKE ONE TO TWO TABLETS BY MOUTH AT BEDTIME NEEDED SOLD: 04/06/2021 [facility] buspirone hydrochloride 7.5 MG Oral Tablet busPIRone H Cl 7.5 MG busPIRone HCl 7.5 MG 03/11/2021 12:00:00 AM EDT 1.0 {tablet} activ e busPIRone HCl 7.5 MG eCW1 ([facility]) buspirone hydrochloride 7.5 MG Oral Tablet busPIRone H Cl 7.5 MG busPIRone HCl 7.5 MG 03/11/2021 12:00:00 AM EDT 1.0 {tablet} activ e busPIRone HCl 7.5 MG eCW1 ([facility]) 7.5 mg 03/11/2021 12:00:00 AM EDT tablet 60 TAKE ONE TABLET BY MOUTH TWICE A DAY NEEDED TAKE ONE TABLET BY MOUTH TWICE A DAY NEEDED SOLD: [facility] Trazodone Hydrochloride 50 MG Oral Tablet traZODone HC l 50 MG traZODone HCl 50 MG 03/11/2021 12:00:00 AM EDT active traZODone HCl 50 MG eCW1 ([facility]) Trazodone Hydrochloride 50 MG Oral Tablet traZODone HC l 50 MG traZODone HCl 50 MG 03/11/2021 12:00:00 AM EDT active traZODone HCl 50 MG eCW1 ([facility]) buspirone hydrochloride 7.5 MG Oral Tablet busPIRone H Cl 7.5 MG busPIRone HCl 7.5 MG 03/11/2021 12:00:00 AM EDT 1.0 {tablet} activ e busPIRone HCl 7.5 MG eCW1 ([facility]) 7.5 mg 03/11/2021 12:00:00 AM EDT tablet 60 TAKE ONE TABLET BY MOUTH TWICE A DAY NEEDED TAKE ONE TABLET BY MOUTH TWICE A DAY NEEDED SOLD: 021 [facility] 24 HR venlafaxine 37.5 MG Extended Relea se Oral Capsule Venlafaxine HCl ER 37.5 MG Venlafaxine HCl ER 37.5 MG 03/11/2021 12:00:00 AM EDT 1.0 {capsule_with_food} active Venlafaxine HCl ER 37.5 MG eCW1 ([facility]) 24 HR venlafaxine 37.5 MG Extended Relea se Oral Capsule Venlafaxine HCl ER 37.5 MG Venlafaxine HCl ER 37.5 MG 03/11/2021 12:00:00 AM EDT 1.0 {capsule_with_food} active Venlafaxine HCl ER 37.5 MG eCW1 ([facility]) 24 HR venlafaxine 37.5 MG Extended Relea se Oral Capsule Venlafaxine HCl ER 37.5 MG Venlafaxine HCl ER 37.5 MG 03/11/2021 12:00:00 AM EDT 1.0 {capsule_with_food} active Venlafaxine HCl ER 37.5 MG eCW1 ([facility]) Trazodone Hydrochloride 50 MG Oral Tablet traZODone HC l 50 MG traZODone HCl 50 MG 03/11/2021 12:00:00 AM EDT active traZODone HCl 50 MG eCW1 ([facility]) Trazodone Hydrochloride 50 MG Oral Tablet TraZODone HC l 50 MG TraZODone HCl 50 MG 03/11/2021 12:00:00 AM EDT active TraZODone HCl 50 MG eCW1 ([facility]) buspirone hydrochloride 7.5 MG Oral Tablet BusPIRone H Cl 7.5 MG BusPIRone HCl 7.5 MG 03/11/2021 12:00:00 AM EDT 1.0 {tablet} activ e BusPIRone HCl 7.5 MG eCW1 ([facility]) 50 mg 03/11/2021 12:00:00 AM EDT tablet 60 TAKE ONE TO TWO TABLETS BY MOUTH AT BEDTIME NEEDED TAKE ONE TO TWO TABLETS BY MOUTH AT BEDTIME NEEDED SOLD: 03/11/2021 [facility] 24 HR venlafaxine 37.5 MG Extended Relea se Oral Capsule Venlafaxine HCl ER 37.5 MG Venlafaxine HCl ER 37.5 MG 03/11/2021 12:00:00 AM EDT 1.0 {capsule_with_food} active Venlafaxine HCl ER 37.5 MG eCW1 ([facility]) CPAP mask UNK 12/12/2020 12:00:00 AM EST active CPAP mask eCW1 ([facility]) CPAP mask UNK 12/12/2020 12:00:00 AM EST active CPAP mask eCW1 ([facility]) CPAP mask UNK 12/12/2020 12:00:00 AM EST active CPAP mask eCW1 ([facility]) CPAP mask UNK 12/12/2020 12:00:00 AM EST active CPAP mask eCW1 ([facility]) CPAP mask UNK 12/12/2020 12:00:00 AM EST active CPAP mask eCW1 ([facility]) CPAP mask UNK 12/12/2020 12:00:00 AM EST active CPAP mask eCW1 ([facility]) CPAP mask UNK 12/12/2020 12:00:00 AM EST active CPAP mask eCW1 ([facility]) CPAP mask UNK 12/12/2020 12:00:00 AM EST active CPAP mask eCW1 ([facility]) CPAP mask UNK 12/12/2020 12:00:00 AM EST active CPAP mask eCW1 ([facility]) CPAP mask UNK 12/12/2020 12:00:00 AM EST active CPAP mask eCW1 ([facility]) CPAP mask UNK 12/12/2020 12:00:00 AM EST active CPAP mask eCW1 ([facility]) CPAP mask UNK 12/12/2020 12:00:00 AM EST active CPAP mask eCW1 ([facility]) CPAP mask UNK 12/12/2020 12:00:00 AM EST active CPAP mask eCW1 ([facility]) CPAP mask UNK 12/12/2020 12:00:00 AM EST active CPAP mask eCW1 ([facility]) CPAP mask UNK 12/12/2020 12:00:00 AM EST active CPAP mask eCW1 ([facility]) CPAP mask UNK 12/12/2020 12:00:00 AM EST active CPAP mask eCW1 ([facility]) CPAP mask UNK 12/12/2020 12:00:00 AM EST active CPAP mask eCW1 ([facility]) CPAP mask UNK 12/12/2020 12:00:00 AM EST active CPAP mask eCW1 ([facility]) CPAP mask UNK 12/12/2020 12:00:00 AM EST active CPAP mask eCW1 ([facility]) CPAP mask UNK 12/12/2020 12:00:00 AM EST active CPAP mask eCW1 ([facility]) 20 mg 12/11/2020 12:00:00 AM EST capsule 90 TAKE THREE CAPSULES BY MOUTH EVERY DAY TAKE THREE CAPSULES BY MOUTH EVERY DAY SOLD: 02/25/2021 [facility] 20 mg 12/11/2020 12:00:00 AM EST capsule 90 TAKE THREE CAPSULES BY MOUTH EVERY DAY TAKE THREE CAPSULES BY MOUTH EVERY DAY SOLD: 04/04/2021 [facility] 20 mg 12/11/2020 12:00:00 AM EST capsule 90 TAKE THREE CAPSULES BY MOUTH EVERY DAY TAKE THREE CAPSULES BY MOUTH EVERY DAY SOLD: 05/12/2021 [facility] 20 mg 12/11/2020 12:00:00 AM EST capsule 90 TAKE THREE CAPSULES BY MOUTH EVERY DAY TAKE THREE CAPSULES BY MOUTH EVERY DAY SOLD: 06/20/2021 [facility] 20 mg 12/11/2020 12:00:00 AM EST capsule 90 TAKE THREE CAPSULES BY MOUTH EVERY DAY TAKE THREE CAPSULES BY MOUTH EVERY DAY SOLD: 01/18/2021 [facility] 20 mg 12/11/2020 12:00:00 AM EST capsule 90 TAKE THREE CAPSULES BY MOUTH EVERY DAY TAKE THREE CAPSULES BY MOUTH EVERY DAY SOLD: 12/12/2020 [facility] 20-25 mg 12/09/2020 12:00:00 AM EST tablet 30 TAKE ONE TABLET BY MOUTH EVERY DAY TAKE ONE TABLET BY MOUTH EVERY DAY SOLD: 03/11/2021 [facility] 20-25 mg 12/09/2020 12:00:00 AM EST tablet 30 TAKE ONE TABLET BY MOUTH EVERY DAY TAKE ONE TABLET BY MOUTH EVERY DAY SOLD: 05/29/2021 [facility] 20-25 mg 12/09/2020 12:00:00 AM EST tablet 30 TAKE ONE TABLET BY MOUTH EVERY DAY TAKE ONE TABLET BY MOUTH EVERY DAY SOLD: 05/02/2021 [facility] 20-25 mg 12/09/2020 12:00:00 AM EST tablet 30 TAKE ONE TABLET BY MOUTH EVERY DAY TAKE ONE TABLET BY MOUTH EVERY DAY SOLD: 01/24/2021 [facility] 20-25 mg 12/09/2020 12:00:00 AM EST tablet 30 TAKE ONE TABLET BY MOUTH EVERY DAY TAKE ONE TABLET BY MOUTH EVERY DAY SOLD: 04/06/2021 [facility] 20-25 mg 12/09/2020 12:00:00 AM EST tablet 30 TAKE ONE TABLET BY MOUTH EVERY DAY TAKE ONE TABLET BY MOUTH EVERY DAY SOLD: 12/09/2020 [facility] montelukast 10 MG Oral Tablet MONTELUKAST SODIUM 12/01/2020 12:0 0:00 AM EST tablet 30 TAKE ONE TABLET BY MOUTH IN THE EVENING TAKE ONE TABLET BY MOUTH IN THE EVENING SOLD: 04/25/2021 [facility] montelukast 10 MG Oral Tablet MONTELUKAST SODIUM 12/01/2020 12:0 0:00 AM EST tablet 30 TAKE ONE TABLET BY MOUTH IN THE EVENING TAKE ONE TABLET BY MOUTH IN THE EVENING SOLD: 05/22/2021 [facility] montelukast 10 MG Oral Tablet MONTELUKAST SODIUM 12/01/2020 12:0 0:00 AM EST tablet 30 TAKE ONE TABLET BY MOUTH IN THE EVENING TAKE ONE TABLET BY MOUTH IN THE EVENING SOLD: 03/29/2021 [facility] montelukast 10 MG Oral Tablet MONTELUKAST SODIUM 12/01/2020 12:0 0:00 AM EST tablet 30 TAKE ONE TABLET BY MOUTH IN THE EVENING TAKE ONE TABLET BY MOUTH IN THE EVENING SOLD: 03/03/2021 [facility] montelukast 10 MG Oral Tablet MONTELUKAST SODIUM 12/01/2020 12:0 0:00 AM EST tablet 30 TAKE ONE TABLET BY MOUTH IN THE EVENING TAKE ONE TABLET BY MOUTH IN THE EVENING SOLD: 01/16/2021 [facility] montelukast 10 MG Oral Tablet MONTELUKAST SODIUM 12/01/2020 12:0 0:00 AM EST tablet 30 TAKE ONE TABLET BY MOUTH IN THE EVENING TAKE ONE TABLET BY MOUTH IN THE EVENING SOLD: 12/01/2020 [facility] 100 mg 11/30/2020 12:00:00 AM EST tablet 30 TAKE ONE TABLET BY MOUTH EVERY DAY WITH FOOD TAKE ONE TABLET BY MOUTH EVERY DAY WITH FOOD SOLD: 04/14/2021 [facility] 100 mg 11/30/2020 12:00:00 AM EST tablet 30 TAKE ONE TABLET BY MOUTH EVERY DAY WITH FOOD TAKE ONE TABLET BY MOUTH EVERY DAY WITH FOOD SOLD: 03/18/2021 [facility] 100 mg 11/30/2020 12:00:00 AM EST tablet 30 TAKE ONE TABLET BY MOUTH EVERY DAY WITH FOOD TAKE ONE TABLET BY MOUTH EVERY DAY WITH FOOD SOLD: 02/20/2021 [facility] 100 mg 11/30/2020 12:00:00 AM EST tablet 30 TAKE ONE TABLET BY MOUTH EVERY DAY WITH FOOD TAKE ONE TABLET BY MOUTH EVERY DAY WITH FOOD SOLD: 01/24/2021 [facility] 100 mg 11/30/2020 12:00:00 AM EST tablet 30 TAKE ONE TABLET BY MOUTH EVERY DAY WITH FOOD TAKE ONE TABLET BY MOUTH EVERY DAY WITH FOOD SOLD: 12/27/2020 [facility] 100 mg 11/30/2020 12:00:00 AM EST tablet 30 TAKE ONE TABLET BY MOUTH EVERY DAY WITH FOOD TAKE ONE TABLET BY MOUTH EVERY DAY WITH FOOD SOLD: 11/30/2020 [facility] 500 mg 11/26/2020 12:00:00 AM EST tablet 60 TAKE ONE TABLET BY MOUTH TWICE A DAY WITH MEALS TAKE ONE TABLET BY MOUTH TWICE A DAY WITH MEALS SOLD: 04/06/2021 [facility] 50 mcg/actuation 11/26/2020 12:00:00 AM EST spray,suspension 16 USE 1 SPRAY IN EACH NOSTRIL ONCE DAILY USE 1 SPRAY IN EACH NOSTRIL ONCE DAILY SOLD: 01/17/2021 [facility] rivaroxaban 20 MG Oral Tablet [Xarelto] Xarelto 20 MG Xarelt o 20 MG 11/26/2020 12:00:00 AM EST 1.0 {tablet_with_food} active Xarelto 20 MG eCW1 ([facility]) rivaroxaban 20 MG Oral Tablet [Xarelto] Xarelto 20 MG Xarelt o 20 MG 11/26/2020 12:00:00 AM EST 1.0 {tablet_with_food} active Xarelto 20 MG eCW1 ([facility]) Fluoxetine 20 MG Oral Capsule FLUoxetine HCl 20 MG FLUoxetin e HCl 20 MG 11/26/2020 12:00:00 AM EST 3.0 {tablets} active FLUoxetine HCl 20 MG eCW1 ([facility]) Fluoxetine 20 MG Oral Capsule FLUoxetine HCl 20 MG FLUoxetin e HCl 20 MG 11/26/2020 12:00:00 AM EST 3.0 {tablets} active FLUoxetine HCl 20 MG eCW1 ([facility]) rivaroxaban 20 MG Oral Tablet [Xarelto] Xarelto 20 MG Xarelt o 20 MG 11/26/2020 12:00:00 AM EST 1.0 {tablet_with_food} active Xarelto 20 MG eCW1 ([facility]) rivaroxaban 20 MG Oral Tablet [Xarelto] Xarelto 20 MG Xarelt o 20 MG 11/26/2020 12:00:00 AM EST 1.0 {tablet_with_food} active Xarelto 20 MG eCW1 ([facility]) rivaroxaban 20 MG Oral Tablet [Xarelto] Xarelto 20 MG Xarelt o 20 MG 11/26/2020 12:00:00 AM EST 1.0 {tablet_with_food} active Xarelto 20 MG eCW1 ([facility]) 20 mg 11/26/2020 12:00:00 AM EST tablet 30 TAKE ONE TABLET BY MOUTH EVERY DAY WITH FOOD TAKE ONE TABLET BY MOUTH EVERY DAY WITH FOOD SOLD: 11/26/2020 [facility] rivaroxaban 20 MG Oral Tablet [Xarelto] Xarelto 20 MG Xarelt o 20 MG 11/26/2020 12:00:00 AM EST 1.0 {tablet_with_food} active Xarelto 20 MG eCW1 ([facility]) Fluoxetine 20 MG Oral Capsule FLUoxetine HCl 20 MG FLUoxetin e HCl 20 MG 11/26/2020 12:00:00 AM EST 3.0 {tablets} active FLUoxetine HCl 20 MG eCW1 ([facility]) Fluoxetine 20 MG Oral Capsule FLUoxetine HCl 20 MG FLUoxetin e HCl 20 MG 11/26/2020 12:00:00 AM EST 3.0 {tablets} active FLUoxetine HCl 20 MG eCW1 ([facility]) 25 mg 11/26/2020 12:00:00 AM EST tablet 60 TAKE 1-2 TABLETS BY MOUTH 30 MINUTES BEFORE BED TAKE 1-2 TABLETS BY MOUTH 30 MINUTES BEFORE BED SOLD: 11/26/2020 [facility] Fluoxetine 20 MG Oral Capsule FLUoxetine HCl 20 MG FLUoxetin e HCl 20 MG 11/26/2020 12:00:00 AM EST 3.0 {tablets} active FLUoxetine HCl 20 MG eCW1 ([facility]) 50 mcg/actuation 11/26/2020 12:00:00 AM EST spray,suspension 16 USE 1 SPRAY IN EACH NOSTRIL ONCE DAILY USE 1 SPRAY IN EACH NOSTRIL ONCE DAILY SOLD: 12/22/2020 [facility] 90 mcg/actuation 11/26/2020 12:00:00 AM EST HFA aerosol inha ler 6 USE 2 PUFFS BY MOUTH EVERY 4 HOURS NEEDED USE 2 PUFFS BY MOUTH EVERY 4 HOURS NEEDED SOLD: 11/26/2020 [facility] rivaroxaban 20 MG Oral Tablet [Xarelto] Xarelto 20 MG Xarelt o 20 MG 11/26/2020 12:00:00 AM EST 1.0 {tablet_with_food} active Xarelto 20 MG eCW1 ([facility]) Fluoxetine 20 MG Oral Capsule FLUoxetine HCl 20 MG FLUoxetin e HCl 20 MG 11/26/2020 12:00:00 AM EST 3.0 {tablets} active FLUoxetine HCl 20 MG eCW1 ([facility]) rivaroxaban 20 MG Oral Tablet [Xarelto] Xarelto 20 MG Xarelt o 20 MG 11/26/2020 12:00:00 AM EST 1.0 {tablet_with_food} active Xarelto 20 MG eCW1 ([facility]) Metformin hydrochloride 500 MG Oral Tablet METFORMIN HCL 11/26/2020 12:00:00 AM EST tablet 60 TAKE ONE TABLET BY MOUTH TWI CE A DAY WITH MEALS TAKE ONE TABLET BY MOUTH TWICE A DAY WITH MEALS SOLD: 11/26/2020 [facility] 500 mg 11/26/2020 12:00:00 AM EST tablet 60 TAKE ONE TABLET BY MOUTH TWICE A DAY WITH MEALS TAKE ONE TABLET BY MOUTH TWICE A DAY WITH MEALS SOLD: 03/11/2021 [facility] Fluoxetine 20 MG Oral Capsule FLUoxetine HCl 20 MG FLUoxetin e HCl 20 MG 11/26/2020 12:00:00 AM EST 3.0 {tablets} active FLUoxetine HCl 20 MG eCW1 ([facility]) rivaroxaban 20 MG Oral Tablet [Xarelto] Xarelto 20 MG Xarelt o 20 MG 11/26/2020 12:00:00 AM EST 1.0 {tablet_with_food} active Xarelto 20 MG eCW1 ([facility]) 25 mg 11/26/2020 12:00:00 AM EST tablet 60 TAKE 1-2 TABLETS BY MOUTH 30 MINUTES BEFORE BED TAKE 1-2 TABLETS BY MOUTH 30 MINUTES BEFORE BED SOLD: 12/22/2020 [facility] rivaroxaban 20 MG Oral Tablet [Xarelto] Xarelto 20 MG Xarelt o 20 MG 11/26/2020 12:00:00 AM EST 1.0 {tablet_with_food} active Xarelto 20 MG eCW1 ([facility]) Fluoxetine 20 MG Oral Capsule FLUoxetine HCl 20 MG FLUoxetin e HCl 20 MG 11/26/2020 12:00:00 AM EST 3.0 {tablets} active FLUoxetine HCl 20 MG eCW1 ([facility]) Fluoxetine 20 MG Oral Capsule FLUoxetine HCl 20 MG FLUoxetin e HCl 20 MG 11/26/2020 12:00:00 AM EST 3.0 {tablets} active FLUoxetine HCl 20 MG eCW1 ([facility]) 50 mcg/actuation 11/26/2020 12:00:00 AM EST spray,suspension 16 USE 1 SPRAY IN EACH NOSTRIL ONCE DAILY USE 1 SPRAY IN EACH NOSTRIL ONCE DAILY SOLD: 11/26/2020 [facility] rivaroxaban 20 MG Oral Tablet [Xarelto] Xarelto 20 MG Xarelt o 20 MG 11/26/2020 12:00:00 AM EST 1.0 {tablet_with_food} active Xarelto 20 MG eCW1 ([facility]) 20 mg 11/26/2020 12:00:00 AM EST tablet 30 TAKE ONE TABLET BY MOUTH EVERY DAY WITH FOOD TAKE ONE TABLET BY MOUTH EVERY DAY WITH FOOD SOLD: 01/16/2021 [facility] 20 mg 11/26/2020 12:00:00 AM EST tablet 30 TAKE ONE TABLET BY MOUTH EVERY DAY WITH FOOD TAKE ONE TABLET BY MOUTH EVERY DAY WITH FOOD SOLD: 03/06/2021 [facility] Metformin hydrochloride 500 MG Oral Tablet METFORMIN HCL 11/26/2020 12:00:00 AM EST tablet 60 TAKE ONE TABLET BY MOUTH TWI CE A DAY WITH MEALS TAKE ONE TABLET BY MOUTH TWICE A DAY WITH MEALS SOLD: 12/22/2020 [facility] rivaroxaban 20 MG Oral Tablet [Xarelto] Xarelto 20 MG Xarelt o 20 MG 11/26/2020 12:00:00 AM EST 1.0 {tablet_with_food} active Xarelto 20 MG eCW1 ([facility]) 20 mg 11/26/2020 12:00:00 AM EST capsule 60 TAKE TWO CAPSULES BY MOUTH EVERY DAY IN THE MORNING TAKE TWO CAPSULES BY MOUTH EVERY DAY IN THE MORNING SO LD: 11/26/2020 [facility] 25 mg 11/26/2020 12:00:00 AM EST tablet 60 TAKE 1-2 TABLETS BY MOUTH 30 MINUTES BEFORE BED TAKE 1-2 TABLETS BY MOUTH 30 MINUTES BEFORE BED SOLD: 01/17/2021 [facility] 20 mg 11/26/2020 12:00:00 AM EST tablet 30 TAKE ONE TABLET BY MOUTH EVERY DAY WITH FOOD TAKE ONE TABLET BY MOUTH EVERY DAY WITH FOOD SOLD: 04/01/2021 [facility] rivaroxaban 20 MG Oral Tablet [Xarelto] Xarelto 20 MG Xarelt o 20 MG 11/26/2020 12:00:00 AM EST 1.0 {tablet_with_food} active Xarelto 20 MG eCW1 ([facility]) rivaroxaban 20 MG Oral Tablet [Xarelto] Xarelto 20 MG Xarelt o 20 MG 11/26/2020 12:00:00 AM EST 1.0 {tablet_with_food} active Xarelto 20 MG eCW1 ([facility]) Metformin hydrochloride 500 MG Oral Tablet METFORMIN HCL 11/26/2020 12:00:00 AM EST tablet 60 TAKE ONE TABLET BY MOUTH TWI CE A DAY WITH MEALS TAKE ONE TABLET BY MOUTH TWICE A DAY WITH MEALS SOLD: 01/17/2021 [facility] 20 mg 11/26/2020 12:00:00 AM EST tablet 30 TAKE ONE TABLET BY MOUTH EVERY DAY WITH FOOD TAKE ONE TABLET BY MOUTH EVERY DAY WITH FOOD SOLD: 04/27/2021 [facility] Fluoxetine 20 MG Oral Capsule FLUoxetine HCl 20 MG FLUoxetin e HCl 20 MG 11/26/2020 12:00:00 AM EST 3.0 {tablets} active FLUoxetine HCl 20 MG eCW1 ([facility]) 25 mg 11/26/2020 12:00:00 AM EST tablet 60 TAKE 1-2 TABLETS BY MOUTH 30 MINUTES BEFORE BED TAKE 1-2 TABLETS BY MOUTH 30 MINUTES BEFORE BED SOLD: 04/06/2021 [facility] Fluoxetine 20 MG Oral Capsule FLUoxetine HCl 20 MG FLUoxetin e HCl 20 MG 11/26/2020 12:00:00 AM EST 3.0 {tablets} active FLUoxetine HCl 20 MG eCW1 ([facility]) rivaroxaban 20 MG Oral Tablet [Xarelto] Xarelto 20 MG Xarelt o 20 MG 11/26/2020 12:00:00 AM EST 1.0 {tablet_with_food} active Xarelto 20 MG eCW1 ([facility]) rivaroxaban 20 MG Oral Tablet [Xarelto] Xarelto 20 MG Xarelt o 20 MG 11/26/2020 12:00:00 AM EST 1.0 {tablet_with_food} active Xarelto 20 MG eCW1 ([facility]) Fluoxetine 20 MG Oral Capsule FLUoxetine HCl 20 MG FLUoxetin e HCl 20 MG 11/26/2020 12:00:00 AM EST 3.0 {tablets} active FLUoxetine HCl 20 MG eCW1 ([facility]) Metformin hydrochloride 500 MG Oral Tablet METFORMIN HCL 11/26/2020 12:00:00 AM EST tablet 60 TAKE ONE TABLET BY MOUTH TWI CE A DAY WITH MEALS TAKE ONE TABLET BY MOUTH TWICE A DAY WITH MEALS SOLD: 02/13/2021 [facility] rivaroxaban 20 MG Oral Tablet [Xarelto] Xarelto 20 MG Xarelt o 20 MG 11/26/2020 12:00:00 AM EST 1.0 {tablet_with_food} active Xarelto 20 MG eCW1 ([facility]) 20 mg 11/26/2020 12:00:00 AM EST capsule 60 TAKE TWO CAPSULES BY MOUTH EVERY DAY IN THE MORNING TAKE TWO CAPSULES BY MOUTH EVERY DAY IN THE MORNING SO LD: 01/03/2021 [facility] 25 mg 11/26/2020 12:00:00 AM EST tablet 60 TAKE 1-2 TABLETS BY MOUTH 30 MINUTES BEFORE BED TAKE 1-2 TABLETS BY MOUTH 30 MINUTES BEFORE BED SOLD: 02/13/2021 [facility] rivaroxaban 20 MG Oral Tablet [Xarelto] Xarelto 20 MG Xarelt o 20 MG 11/26/2020 12:00:00 AM EST 1.0 {tablet_with_food} active Xarelto 20 MG eCW1 ([facility]) Fluoxetine 20 MG Oral Capsule FLUoxetine HCl 20 MG FLUoxetin e HCl 20 MG 11/26/2020 12:00:00 AM EST 3.0 {tablets} active FLUoxetine HCl 20 MG eCW1 ([facility]) Fluoxetine 20 MG Oral Capsule FLUoxetine HCl 20 MG FLUoxetin e HCl 20 MG 11/26/2020 12:00:00 AM EST 3.0 {tablets} active FLUoxetine HCl 20 MG eCW1 ([facility]) Fluoxetine 20 MG Oral Capsule FLUoxetine HCl 20 MG FLUoxetin e HCl 20 MG 11/26/2020 12:00:00 AM EST 3.0 {tablets} active FLUoxetine HCl 20 MG eCW1 ([facility]) 20 mg 11/26/2020 12:00:00 AM EST capsule 60 TAKE TWO CAPSULES BY MOUTH EVERY DAY IN THE MORNING TAKE TWO CAPSULES BY MOUTH EVERY DAY IN THE MORNING SO LD: 04/27/2021 [facility] Fluoxetine 20 MG Oral Capsule FLUoxetine HCl 20 MG FLUoxetin e HCl 20 MG 11/26/2020 12:00:00 AM EST 3.0 {tablets} active FLUoxetine HCl 20 MG eCW1 ([facility]) Fluoxetine 20 MG Oral Capsule FLUoxetine HCl 20 MG FLUoxetin e HCl 20 MG 11/26/2020 12:00:00 AM EST 3.0 {tablets} active FLUoxetine HCl 20 MG eCW1 ([facility]) 20 mg 11/26/2020 12:00:00 AM EST capsule 60 TAKE TWO CAPSULES BY MOUTH EVERY DAY IN THE MORNING TAKE TWO CAPSULES BY MOUTH EVERY DAY IN THE MORNING SO LD: 02/10/2021 [facility] 25 mg 11/26/2020 12:00:00 AM EST tablet 60 TAKE 1-2 TABLETS BY MOUTH 30 MINUTES BEFORE BED TAKE 1-2 TABLETS BY MOUTH 30 MINUTES BEFORE BED SOLD: 03/11/2021 [facility] Fluoxetine 20 MG Oral Capsule FLUoxetine HCl 20 MG FLUoxetin e HCl 20 MG 11/26/2020 12:00:00 AM EST 3.0 {tablets} active FLUoxetine HCl 20 MG eCW1 ([facility]) 20 mg 11/26/2020 12:00:00 AM EST tablet 30 TAKE ONE TABLET BY MOUTH EVERY DAY WITH FOOD TAKE ONE TABLET BY MOUTH EVERY DAY WITH FOOD SOLD: 05/23/2021 [facility] rivaroxaban 20 MG Oral Tablet [Xarelto] Xarelto 20 MG Xarelt o 20 MG 11/26/2020 12:00:00 AM EST 1.0 {tablet_with_food} active Xarelto 20 MG eCW1 ([facility]) 50 mcg/actuation 11/26/2020 12:00:00 AM EST spray,suspension 16 USE 1 SPRAY IN EACH NOSTRIL ONCE DAILY USE 1 SPRAY IN EACH NOSTRIL ONCE DAILY SOLD: 03/11/2021 [facility] Fluoxetine 20 MG Oral Capsule FLUoxetine HCl 20 MG FLUoxetin e HCl 20 MG 11/26/2020 12:00:00 AM EST 3.0 {tablets} active FLUoxetine HCl 20 MG eCW1 ([facility]) 20 mg 11/26/2020 12:00:00 AM EST capsule 60 TAKE TWO CAPSULES BY MOUTH EVERY DAY IN THE MORNING TAKE TWO CAPSULES BY MOUTH EVERY DAY IN THE MORNING SO LD: 03/20/2021 [facility] rivaroxaban 20 MG Oral Tablet [Xarelto] Xarelto 20 MG Xarelt o 20 MG 11/26/2020 12:00:00 AM EST 1.0 {tablet_with_food} active Xarelto 20 MG eCW1 ([facility]) Fluoxetine 20 MG Oral Capsule FLUoxetine HCl 20 MG FLUoxetin e HCl 20 MG 11/26/2020 12:00:00 AM EST 3.0 {tablets} active FLUoxetine HCl 20 MG eCW1 ([facility]) Fluoxetine 20 MG Oral Capsule FLUoxetine HCl 20 MG FLUoxetin e HCl 20 MG 11/26/2020 12:00:00 AM EST 3.0 {tablets} active FLUoxetine HCl 20 MG eCW1 ([facility]) 50 mcg/actuation 11/26/2020 12:00:00 AM EST spray,suspension 16 USE 1 SPRAY IN EACH NOSTRIL ONCE DAILY USE 1 SPRAY IN EACH NOSTRIL ONCE DAILY SOLD: 04/06/2021 [facility] rivaroxaban 20 MG Oral Tablet [Xarelto] Xarelto 20 MG Xarelt o 20 MG 11/26/2020 12:00:00 AM EST 1.0 {tablet_with_food} active Xarelto 20 MG eCW1 ([facility]) rivaroxaban 20 MG Oral Tablet [Xarelto] Xarelto 20 MG Xarelt o 20 MG 11/26/2020 12:00:00 AM EST 1.0 {tablet_with_food} active Xarelto 20 MG eCW1 ([facility]) Fluoxetine 20 MG Oral Capsule FLUoxetine HCl 20 MG FLUoxetin e HCl 20 MG 11/26/2020 12:00:00 AM EST 3.0 {tablets} active FLUoxetine HCl 20 MG eCW1 ([facility]) Fluoxetine 20 MG Oral Capsule FLUoxetine HCl 20 MG FLUoxetin e HCl 20 MG 11/26/2020 12:00:00 AM EST 3.0 {tablets} active FLUoxetine HCl 20 MG eCW1 ([facility]) 50 mcg/actuation 11/26/2020 12:00:00 AM EST spray,suspension 16 USE 1 SPRAY IN EACH NOSTRIL ONCE DAILY USE 1 SPRAY IN EACH NOSTRIL ONCE DAILY SOLD: 02/13/2021 [facility] rivaroxaban 20 MG Oral Tablet [Xarelto] Xarelto 20 MG Xarelt o 20 MG 11/26/2020 12:00:00 AM EST 1.0 {tablet_with_food} active Xarelto 20 MG eCW1 ([facility]) 20 mg 11/26/2020 12:00:00 AM EST capsule 60 TAKE TWO CAPSULES BY MOUTH EVERY DAY IN THE MORNING TAKE TWO CAPSULES BY MOUTH EVERY DAY IN THE MORNING SO LD: 06/04/2021 [facility] rivaroxaban 20 MG Oral Tablet [Xarelto] Xarelto 20 MG Xarelt o 20 MG 11/26/2020 12:00:00 AM EST 1.0 {tablet_with_food} active Xarelto 20 MG eCW1 ([facility]) Fluoxetine 20 MG Oral Capsule FLUoxetine HCl 20 MG FLUoxetin e HCl 20 MG 11/26/2020 12:00:00 AM EST 3.0 {tablets} active FLUoxetine HCl 20 MG eCW1 ([facility]) 50 mg 11/19/2020 12:00:00 AM EST tablet 30 TAKE 1 TABLET BY MOUTH WITH FOOD ONCE A DAY TAKE 1 TABLET BY MOUTH WITH FOOD ONCE A DAY SOLD: 11/19/2020 [facility] 20-25 mg 11/16/2020 12:00:00 AM EST tablet 30 TAKE ONE TABLET BY MOUTH EVERY DAY TAKE ONE TABLET BY MOUTH EVERY DAY SOLD: 02/16/2021 [facility] 20-25 mg 11/16/2020 12:00:00 AM EST tablet 30 TAKE ONE TABLET BY MOUTH EVERY DAY TAKE ONE TABLET BY MOUTH EVERY DAY SOLD: 01/02/2021 [facility] 20-25 mg 11/16/2020 12:00:00 AM EST tablet 30 TAKE ONE TABLET BY MOUTH EVERY DAY TAKE ONE TABLET BY MOUTH EVERY DAY SOLD: 11/16/2020 [facility] montelukast 10 MG Oral Tablet MONTELUKAST SODIUM 09/17/2020 12:0 0:00 AM EST tablet 30 TAKE ONE TABLET BY MOUTH IN THE EVENING TAKE ONE TABLET BY MOUTH IN THE EVENING SOLD: 10/13/2020 [facility] montelukast 10 MG Oral Tablet MONTELUKAST SODIUM 09/17/2020 12:0 0:00 AM EST tablet 30 TAKE ONE TABLET BY MOUTH IN THE EVENING TAKE ONE TABLET BY MOUTH IN THE EVENING SOLD: 09/17/2020 [facility] montelukast 10 MG Oral Tablet MONTELUKAST SODIUM 09/17/2020 12:0 0:00 AM EST tablet 30 TAKE ONE TABLET BY MOUTH IN THE EVENING TAKE ONE TABLET BY MOUTH IN THE EVENING SOLD: 02/09/2021 [facility] montelukast 10 MG Oral Tablet MONTELUKAST SODIUM 09/17/2020 12:0 0:00 AM EST tablet 30 TAKE ONE TABLET BY MOUTH IN THE EVENING TAKE ONE TABLET BY MOUTH IN THE EVENING SOLD: 12/24/2020 [facility] montelukast 10 MG Oral Tablet MONTELUKAST SODIUM 09/17/2020 12:0 0:00 AM EST tablet 30 TAKE ONE TABLET BY MOUTH IN THE EVENING TAKE ONE TABLET BY MOUTH IN THE EVENING SOLD: 11/08/2020 [facility] 20 mg 08/12/2020 12:00:00 AM EST tablet 30 TAKE ONE TABLET BY MOUTH EVERY DAY TAKE ONE TABLET BY MOUTH EVERY DAY SOLD: 08/12/2020 [facility] 20 mg 08/12/2020 12:00:00 AM EST tablet 30 TAKE ONE TABLET BY MOUTH EVERY DAY TAKE ONE TABLET BY MOUTH EVERY DAY SOLD: 09/10/2020 [facility] 20 mg 08/12/2020 12:00:00 AM EST tablet 30 TAKE ONE TABLET BY MOUTH EVERY DAY TAKE ONE TABLET BY MOUTH EVERY DAY SOLD: 11/08/2020 [facility] 20 mg 08/12/2020 12:00:00 AM EST tablet 30 TAKE ONE TABLET BY MOUTH EVERY DAY TAKE ONE TABLET BY MOUTH EVERY DAY SOLD: 12/21/2020 [facility] 20 mg 08/12/2020 12:00:00 AM EST tablet 30 TAKE ONE TABLET BY MOUTH EVERY DAY TAKE ONE TABLET BY MOUTH EVERY DAY SOLD: 10/06/2020 [facility] 20 mg 08/12/2020 12:00:00 AM EST tablet 30 TAKE ONE TABLET BY MOUTH EVERY DAY TAKE ONE TABLET BY MOUTH EVERY DAY SOLD: 02/09/2021 [facility] 20 mg 05/25/2020 12:00:00 AM EDT capsule 60 TAKE TWO CAPSULES BY MOUTH EVERY DAY IN THE MORNING TAKE TWO CAPSULES BY MOUTH EVERY DAY IN THE MORNING SO LD: 06/28/2020 [facility] 20 mg 05/25/2020 12:00:00 AM EDT capsule 60 TAKE TWO CAPSULES BY MOUTH EVERY DAY IN THE MORNING TAKE TWO CAPSULES BY MOUTH EVERY DAY IN THE MORNING SO LD: 10/11/2020 [facility] 20 mg 05/25/2020 12:00:00 AM EDT capsule 60 TAKE TWO CAPSULES BY MOUTH EVERY DAY IN THE MORNING TAKE TWO CAPSULES BY MOUTH EVERY DAY IN THE MORNING SO LD: 09/15/2020 [facility] 20 mg 05/25/2020 12:00:00 AM EDT capsule 60 TAKE TWO CAPSULES BY MOUTH EVERY DAY IN THE MORNING TAKE TWO CAPSULES BY MOUTH EVERY DAY IN THE MORNING SO LD: 07/25/2020 [facility] 20 mg 05/25/2020 12:00:00 AM EDT capsule 60 TAKE TWO CAPSULES BY MOUTH EVERY DAY IN THE MORNING TAKE TWO CAPSULES BY MOUTH EVERY DAY IN THE MORNING SO LD: 08/20/2020 [facility] 50 mg 05/21/2020 12:00:00 AM EDT tablet 30 TAKE ONE TABLET BY MOUTH EVERY DAY TAKE ONE TABLET BY MOUTH EVERY DAY SOLD: 09/15/2020 [facility] 50 mg 05/21/2020 12:00:00 AM EDT tablet 30 TAKE ONE TABLET BY MOUTH EVERY DAY TAKE ONE TABLET BY MOUTH EVERY DAY SOLD: 06/21/2020 [facility] 50 mg 05/21/2020 12:00:00 AM EDT tablet 30 TAKE ONE TABLET BY MOUTH EVERY DAY TAKE ONE TABLET BY MOUTH EVERY DAY SOLD: 08/20/2020 [facility] 20-25 mg 05/21/2020 12:00:00 AM EDT tablet 30 TAKE ONE TABLET BY MOUTH EVERY DAY TAKE ONE TABLET BY MOUTH EVERY DAY SOLD: 09/10/2020 [facility] 20-25 mg 05/21/2020 12:00:00 AM EDT tablet 30 TAKE ONE TABLET BY MOUTH EVERY DAY TAKE ONE TABLET BY MOUTH EVERY DAY SOLD: 06/21/2020 [facility] 50 mg 05/21/2020 12:00:00 AM EDT tablet 30 TAKE ONE TABLET BY MOUTH EVERY DAY TAKE ONE TABLET BY MOUTH EVERY DAY SOLD: 2020 [facility] 20-25 mg 05/21/2020 12:00:00 AM EDT tablet 30 TAKE ONE TABLET BY MOUTH EVERY DAY TAKE ONE TABLET BY MOUTH EVERY DAY SOLD: 10/06/2020 [facility] 20-25 mg 05/21/2020 12:00:00 AM EDT tablet 30 TAKE ONE TABLET BY MOUTH EVERY DAY TAKE ONE TABLET BY MOUTH EVERY DAY SOLD: 08/20/2020 [facility] 50 mg 05/21/2020 12:00:00 AM EDT tablet 30 TAKE ONE TABLET BY MOUTH EVERY DAY TAKE ONE TABLET BY MOUTH EVERY DAY SOLD: 10/11/2020 [facility] 20-25 mg 05/21/2020 12:00:00 AM EDT tablet 30 TAKE ONE TABLET BY MOUTH EVERY DAY TAKE ONE TABLET BY MOUTH EVERY DAY SOLD: 2020 [facility] Hydroxyzine Hydrochloride 25 MG Oral Tablet HYDROXYZINE HCL 03/19/2020 12:00:00 AM EDT tablet 60 TAKE 1-2 TABLETS BY MOUTH NEEDED 30 MINUTES BEFORE BED TAKE 1-2 TABLETS BY MOUTH NEEDED 30 MINUTES BEFORE BED SOLD: 08/20/2020 [facility] Hydroxyzine Hydrochloride 25 MG Oral Tablet HYDROXYZINE HCL 03/19/2020 12:00:00 AM EDT tablet 60 TAKE 1-2 TABLETS BY MOUTH NEEDED 30 MINUTES BEFORE BED TAKE 1-2 TABLETS BY MOUTH NEEDED 30 MINUTES BEFORE BED SOLD: 07/25/2020 [facility] Hydroxyzine Hydrochloride 25 MG Oral Tablet HYDROXYZINE HCL 03/19/2020 12:00:00 AM EDT tablet 60 TAKE 1-2 TABLETS BY MOUTH NEEDED 30 MINUTES BEFORE BED TAKE 1-2 TABLETS BY MOUTH NEEDED 30 MINUTES BEFORE BED SOLD: 06/28/2020 [facility] 25 mg 03/19/2020 12:00:00 AM EDT tablet 60 TAKE 1-2 TABLETS BY MOUTH NEEDED 30 MINUTES BEFORE BED TAKE 1-2 TABLETS BY MOUTH NEEDED 30 M INUTES BEFORE BED SOLD: 09/15/2020 [facility] 20 mg 02/10/2020 12:00:00 AM EDT tablet 30 TAKE ONE TABLET BY MOUTH EVERY DAY TAKE ONE TABLET BY MOUTH EVERY DAY SOLD: 06/30/2020 [facility] montelukast 10 MG Oral Tablet MONTELUKAST SODIUM 09/29/2019 12:0 0:00 AM EST tablet 30 TAKE ONE TABLET BY MOUTH EVERY D AY IN THE EVENING TAKE ONE TABLET BY MOUTH EVERY DAY IN THE EVENING SOLD: 07/25/2020 [facility] montelukast 10 MG Oral Tablet MONTELUKAST SODIUM 09/29/2019 12:0 0:00 AM EST tablet 30 TAKE ONE TABLET BY MOUTH EVERY D AY IN THE EVENING TAKE ONE TABLET BY MOUTH EVERY DAY IN THE EVENING SOLD: 08/20/2020 [facility] montelukast 10 MG Oral Tablet MONTELUKAST SODIUM 09/29/2019 12:0 0:00 AM EST tablet 30 TAKE ONE TABLET BY MOUTH EVERY D AY IN THE EVENING TAKE ONE TABLET BY MOUTH EVERY DAY IN THE EVENING SOLD: 06/28/2020 [facility] Insurance Providers Payer name Policy type / Coverage type Policy ID Covered constitution party ID Covered constitution party's relationship to bee Policy Bee Plan Information [facility] [place] [id number] ANSI-Commercial [id number] ANSI-Medicaid [id number] ANSI-Commercial [id number] ANSI-Medicaid [id number] ANSI-Medicaid [id number] ANSI-Commercial [id number] [facility] [id number] ANSI-Commercial [id number] [facility] [id number] ANSI-Commercial [id number] [facility] [id number] ANSI-Commercial [id number] ANSI-Commercial [id number] [facility] [id number] ANSI-Commercial [id number] [facility] [id number] ANSI-Medicaid [id number] ANSI-Commercial [id number] [facility] [id number] SP [id number] [facility] [id number] SP [id number] ANSI-Medicaid [id number] ANSI-Medicaid [id number] ANSI-Medicaid [id number] ANSI-Medicaid [id number] ANSI-Medicaid [id number] ANSI-Medicaid [id number] ANSI-Medicaid [id number] ANSI-Medicaid [id number] ANSI-Medicaid [id number] ANSI-Medicaid [id number] ANSI-Medicaid [id number] ANSI-Medicaid [id number] ANSI-Medicaid [id number] ANSI-Medicaid [id number] ANSI-Medicaid [id number] ANSI-Medicaid [id number] ANSI-Medicaid [id number] ANSI-Medicaid [id number] ANSI-Medicaid [id number] ANSI-Medicaid [id number] ANSI-Medicaid [id number] [facility] [id number] SP [id number] [facility] [id number] SP [id number] Sliding Fee Scale P [id number] S [id number] Problems, Conditions, and Diagnoses Code Display Name Description Problem Type Effective Dates Data Source(s) M19.90 [id number] Osteoarthritis, unsp ecified osteoarthritis type, unspecified site Problem 05/25/2021 12:00:00 AM EDT eCW1 ([facility]) E11.9 [id number] Type 2 diabetes dorota itus without complication, unspecified whether prison insulin use Problem 05/25/2021 12:00:00 AM EDT eCW 1 ([facility]) J15.212 [id number] Pneumonia due to met hicillin resistant Staphylococcus aureus, unspecified laterality, unspecified part of lung Problem 05/24/2021 12:00:00 AM EDT eCW1 ([facility]) I35.0 [id number] Nonrheumatic aortic valve stenosis Proble m 05/24/2021 12:00:00 AM EDT eCW1 ([facility]) E66.2 11092805 Obesity hypoventilation syndrome Problem 05/13/2021 12:00:00 AM EDT eCW1 ([facility]) J96.21 [id number] Acute and chronic respiratory fa ilure with hypoxia Problem 05/13/2021 12:00:00 AM EDT eCW1 ([facility]) J96.22 [id number] Acute and chronic respiratory fa ilure with hypercapnia Problem 05/13/2021 12:00:00 AM EDT eCW1 ([facility]) G47.33 81816503 CHELA (obstructive sleep apnea) Problem 05/13/2021 12:00:00 AM EDT eCW1 ([facility]) N93.9 237710312 Vaginal bleeding Problem 05/12/2021 12:00:00 AM EDT eCW1 ([facility]) N93.9 126657283 Abnormal bleeding in menstrual cycle Prob cristobal 04/04/2021 12:00:00 AM EDT eCW1 ([facility]) F41.9 74396488 Anxiety Problem 03/11/2021 12:00:00 AM ED T eCW1 ([facility]) Z68.44 724908389 BMI 60.0-69.9, adult Problem 03/11/2021 12:0 0:00 AM EDT eCW1 ([facility]) G47.00 Insomnia Insomnia, unspecified type Problem 12:00:00 AM EST eCW1 ([facility]) M13.0 72185231 Polyarthropathy Problem 11/26/2020 12:00:00 AM EST eCW1 ([facility]) Surgeries/Procedures Procedure Description Date Indications Data Source(s) [facility]/DAY 25 MINUTES 04/23/2021 12:00:00 AM EDT MEDENT ([facility], ) CRITICAL CARE ILL/INJURED PATIENT INIT 30-74 MIN 04/22 12:00:00 AM EDT MEDENT ([facility], ) CRITICAL CARE ILL/INJURED PATIENT INIT 30-74 MIN 04/21 12:00:00 AM EDT MEDENT ([facility], ) CRITICAL CARE ILL/INJURED PATIENT INIT 30-74 MIN 04/20 12:00:00 AM EDT MEDENT ([facility], ) CRITICAL CARE ILL/INJURED PATIENT INIT 30-74 MIN 04/19 12:00:00 AM EDT MEDENT ([facility], ) CRITICAL CARE ILL/INJURED PATIENT INIT 30-74 MIN 04/18 12:00:00 AM EDT MEDENT ([facility], ) CRITICAL CARE ILL/INJURED PATIENT INIT 30-74 MIN 04/17 12:00:00 AM EDT MEDENT ([facility], ) CRITICAL CARE ILL/INJURED PATIENT INIT 30-74 MIN 04/16 12:00:00 AM EDT MEDENT ([facility], ) CRITICAL CARE ILL/INJURED PATIENT INIT 30-74 MIN 04/15 12:00:00 AM EDT MED[facility] ([facility], ) CRITICAL CARE ILL/INJURED PATIENT ADDL 30 MIN 04/15/20 12:00:00 AM EDT MED[facility] ([facility], ) [facility] CARE/DAY 25 MINUTES 04/14/2021 12:00:00 AM EDT MEDENT ([facility], ) [facility] CARE/DAY 25 MINUTES 04/13/2021 12:00:00 AM EDT MED[facility] ([facility], ) [facility] CARE/DAY 25 MINUTES 04/12/2021 12:00:00 AM EDT MED[facility] ([facility], ) [facility] CARE/DAY 25 MINUTES 04/11/2021 12:00:00 AM EDT MEDENT ([facility], ) CRITICAL CARE ILL/INJURED PATIENT INIT 30-74 MIN 04/10 12:00:00 AM EDT MED[facility] ([facility], ) CRITICAL CARE ILL/INJURED PATIENT INIT 30-74 MIN 04/09 12:00:00 AM EDT MED[facility] ([facility], ) [facility] 25 [facility]UTES 03/26/2021 12:00:00 AM EDT MEDENT ([facility], ) CRITICAL CARE ILL/INJURED PATIENT INIT 30-74 MIN 03/25 12:00:00 AM EDT MED[facility] ([facility], ) CRITICAL CARE ILL/INJURED PATIENT INIT 30-74 MIN 03/24 12:00:00 AM EDT MED[facility] ([facility], ) [facility] 25 MINUTES 03/23/2021 12:00:00 AM EDT MED[facility] ([facility]) CRITICAL CARE ILL/INJURED PATIENT INIT 30-74 MIN 03/22 12:00:00 AM EDT MED[facility] ([facility]) Results ID Date Data Source [id number] 06/06/2021 08:28:00 AM EDT MED[facility] ([facility]) Name Value Range Interpretation Code Description Data Ally rce(s) Supporting Document(s) PDFReport Laboratory test result MEDENT ([facility]) FVC-Pred 3.68 L MED[facility] ([facility]) FVC-%Pred-Pre 37 L MEDENT ([facility]) FVC-Pre 1.39 L MED[facility] ([facility]) FVC-LLN 2.92 L [facility] ([facility]) Fev1-Pred 2.85 L [facility] ([facility]) Fev1-Pre 1.03 L MED[facility] ([facility]) Fev1-%Pred-Pre 36 L MED[facility] ([facility]) Fev6-Pre 1.39 L MED[facility] ([facility]) Fev6-Pred 3.55 L [facility] ([facility]) Fev1-LLN 2.20 L [facility] ([facility]) Fev6-%Pred-Pre 39 L MED[facility] ([facility]) Bdf5xiy-Arc 74 % [facility] ([facility]) Fev6-LLN 2.81 L MED[facility] ([facility]) Rzg3alv-Gian 78 % MED[facility] ([facility]) Mzj5owx-LLK 68 % MED[facility] ([facility]) Acp6yfl-%Pred-Pre 94 % MED[facility] ([facility]) Kvl1krj-Dcnm 97 % MED[facility] ([facility]) Iac9fhe-%Pred-Pre 103 % [facility] ([facility]) Mmt4qvw-Siz 100 % [facility] ([facility]) FEFMax-Pred 6.77 L/E/sec MED[facility] ([facility]) FEFMax-Pre 4.31 L/E/sec MED[facility] ([facility]) FEFMax-LLN 4.89 L/E/sec [facility] ([facility]) FEFMax-%Pred-Pre 63 L/E/sec MED[facility] ([facility]) [id number]-Arf 0.69 L/E/sec MED[facility] ([facility]) [id number]-Kevo 2.53 L/E/sec MED[facility] ([facility]) [id number]-RBD 1.17 L/E/sec MED[facility] ([facility]) Jck6820-%Pred-Pre 27 L/E/sec MED[facility] ([facility]) Xnp2rft2-Rlzh 81 % [facility] ([facility]) ExpTime-Pre 6.64 sec MED[facility] ([facility]) Ogx1sec9-DSY 72 % [facility] ([facility]) Rbu7jin0-Prd 74 % [facility] ([facility]) Hdd3ljd1-%Pred-Pre 91 % MED[facility] ([facility]) ID Date Data Source RENAL PROFILE 05/12/2021 12:00:00 AM EDT eCW1 ([facility]) Name Value Range Interpretation Code Description Data Ally rce(s) Supporting Document(s) 95 70-100 GLUCOSE, FASTING eCW1 ([facility]) 13 7-18 BLOOD UREA NITROGEN eCW1 ([facility]) 0.74 0.55-1.30 CREATININE FOR GFR eCW1 ([facility]) > 60.0 >45 GLOMERULAR FILTRATION RATE eCW 1 ([facility]) 103 98-107 CHLORIDE LEVEL eCW1 ([facility]) 3.7 3.5-5.1 POTASSIUM SERUM eCW1 ([facility]) 142 136-145 SODIUM LEVEL eCW1 ([facility]) 3.5 2.5-4.9 PHOSPHORUS LEVEL eCW1 ([facility]) 7.8 8.8-10.2 CALCIUM LEVEL eCW1 ([facility]) 34 21-32 CARBON DIOXIDE LEVEL eCW1 ([facility]) 3.3 3.2-5.2 ALBUMIN eCW1 ([facility]) ID Date Data Source MAGNESIUM LEVEL 05/12/2021 12:00:00 AM EDT eCW1 ([facility]) Name Value Range Interpretation Code Description Data Ally rce(s) Supporting Document(s) 1.9 1.8-2.4 MAGNESIUM LEVEL eCW1 ([facility]) ID Date Data Source [id number] 03/18/2021 06:11:00 AM EDT [facility] Name Value Range Interpretation Code Description Data Ally rce(s) Supporting Document(s) SARS coronavirus 2 RNA [Presence] in Res piratory specimen by [facility] with probe detection NEGATIVE [facility] This lab was ordered by [facility] a nd reported by [facility]. Procedure Social History Code Duration Value Status Description Data Source(s ) Smoking 07/25/2021 12:00:00 AM EDT Never Smoker completed Never S moker eCW1 ([facility]) Smoking 06/06/2021 12:00:00 AM EDT Patient has never smoked co mpleted Patient has never smoked [facility] ([facility]) Smoking 05/25/2021 12:00:00 AM EDT Never Smoker completed Never S moker eCW1 ([facility]) Smoking 05/25/2021 12:00:00 AM EDT Never Smoker completed Never S moker eCW1 ([facility]) Smoking 05/25/2021 12:00:00 AM EDT Never Smoker completed Never S moker eCW1 ([facility]) Smoking 05/25/2021 12:00:00 AM EDT Never Smoker completed Never S moker eCW1 ([facility]) Smoking 05/25/2021 12:00:00 AM EDT Never Smoker completed Never S moker eCW1 ([facility]) Smoking 05/25/2021 12:00:00 AM EDT Never Smoker completed Never S moker eCW1 ([facility]) Smoking 05/25/2021 12:00:00 AM EDT Never Smoker completed Never S moker eCW1 ([facility]) Smoking 05/25/2021 12:00:00 AM EDT Never Smoker completed Never S moker eCW1 ([facility]) Smoking 05/25/2021 12:00:00 AM EDT Never Smoker completed Never S moker eCW1 ([facility]) Smoking 05/24/2021 12:00:00 AM EDT Never Smoker completed Never S moker eCW1 ([facility]) Smoking 05/12/2021 12:00:00 AM EDT Never Smoker completed Never S moker eCW1 ([facility]) Smoking 05/12/2021 12:00:00 AM EDT Never Smoker completed Never S moker eCW1 ([facility]) Smoking 05/12/2021 12:00:00 AM EDT Never Smoker completed Never S moker eCW1 ([facility]) Smoking 03/11/2021 12:00:00 AM EDT Never Smoker completed Never S moker eCW1 ([facility]) Smoking 03/11/2021 12:00:00 AM EDT Never Smoker completed Never S moker eCW1 ([facility]) Smoking 03/11/2021 12:00:00 AM EDT Never Smoker completed Never S moker eCW1 ([facility]) Smoking 03/11/2021 12:00:00 AM EDT Never Smoker completed Never S moker eCW1 ([facility]) Smoking 11/26/2020 12:00:00 AM EST Never Smoker completed Never S moker eCW1 ([facility]) Smoking 11/26/2020 12:00:00 AM EST Never Smoker completed Never S moker eCW1 ([facility]) Smoking 11/26/2020 12:00:00 AM EST Never Smoker completed Never S moker eCW1 ([facility]) Smoking 11/26/2020 12:00:00 AM EST Never Smoker completed Never S moker eCW1 ([facility]) Smoking 11/26/2020 12:00:00 AM EST Never Smoker completed Never S moker eCW1 ([facility]) Smoking 11/26/2020 12:00:00 AM EST Never Smoker completed Never S moker eCW1 ([facility]) Vital Signs ID Date Data Source UNK Name Value Range Interpretation Code Description Data Source(s) [facility]stolic blood pressure 128 mm[Hg] 128 mm[Hg[facility] Diastolic blood pressure 78 mm[Hg] 78 mm[Hg] [facility] ([facility]) Heart rate 92 /min 92 /min [facility] ([facility]) Oxygen saturation in Arterial blood by Pulse oximetry 983 % 983 % [facility] ([facility]) Body height 67 [in_i] 67 [in_i] [facility] ([facility]) 5'7" Body weight 388.00 [lb_av] 388.00 [lb_av] [facility] T ([facility]) Body mass index (BMI) [Ratio] 60.8 kg/m2 60.8 k g/m2 [facility] ([facility]) [place] body weight 135 [lb_av] 135 [lb_av] [facility] Body weight 175.997 kg 175.997 kg [facility] ([facility]) Body surface area Derived from formula 2.68 m2 2.68 m2 [facility] ([facility]) Body weight 388 [lb_av] 388 [lb_av] eCW1 ([facility]) Body height 68 [in_i] 68 [in_i] eCW1 ([facility]) Body mass index (BMI) [Ratio] 58.99 kg/m2 58.99 kg/m2 W1 ([facility]) Heart rate 99 /min 99 /min eCW1 ([facility]) Respiratory rate 21 /min 21 /min eCW1 ([facility]) Body temperature 99.2 [degF] 99.2 [degF] eCW1 ( [facility]) Systolic blood pressure 150 mm[Hg] 150 mm[Hg] e CW1 ([facility]) Diastolic blood pressure 78 mm[Hg] 78 mm[Hg] eCW1 ([facility]) Body height 68 [in_i] 68 [in_i] eCW1 ([facility]) Body weight 450 [lb_av] 450 [lb_av] eCW1 ([facility]) Body weight 204.12 kg 204.12 kg eCW1 ([facility]) Body temperature 98.2 [degF] 98.2 [degF] eCW1 ( [facility]) Systolic blood pressure 128 mm[Hg] 128 mm[Hg] e CW1 ([facility]) Diastolic blood pressure 64 mm[Hg] 64 mm[Hg] eCW1 ([facility]) Body mass index (BMI) [Ratio] 68.41 kg/m2 68.41 kg/m2 eCW1 ([facility]) Heart rate 94 /min 94 /min eCW1 ([facility]) Respiratory rate 22 /min 22 /min eCW1 ([facility]) Body weight 450.0 [lb_av] 450.0 [lb_av] eCW1 ([facility]) Body weight 204.12 kg 204.12 kg eCW1 ([facility]) Body height 68 [in_i] 68 [in_i] eCW1 ([facility]) Body mass index (BMI) [Ratio] 68.41 kg/m2 68.41 kg/m2 eCW1 ([facility]) Heart rate 91 /min 91 /min eCW1 ([facility]) Respiratory rate 22 /min 22 /min eCW1 ([facility]) Body temperature 98.8 [degF] 98.8 [degF] eCW1 ( [facility]) Systolic blood pressure 138 mm[Hg] 138 mm[Hg] e CW1 ([facility]) Diastolic blood pressure 78 mm[Hg] 78 mm[Hg] eCW1 ([facility]) Heart rate 106 /min 106 /min eCW1 ([facility]) Body weight [lb_av] eCW1 ([facility]) Body height 68 [in_i] 68 [in_i] eCW1 ([facility]) Body mass index (BMI) [Ratio] 68.41 kg/m2 68.41 kg/m2 eCW1 ([facility]) Respiratory rate 20 /min 20 /min eCW1 ([facility]) Body temperature 97.7 [degF] 97.7 [degF] eCW1 ( [facility]) Systolic blood pressure 138 mm[Hg] 138 mm[Hg] e CW1 ([facility]) Diastolic blood pressure 84 mm[Hg] 84 mm[Hg] eCW1 ([facility]) Body weight 409.8 [lb_av] 409.8 [lb_av] eCW1 ([facility]) Body height 68 [in_i] 68 [in_i] eCW1 ([facility]) Body mass index (BMI) [Ratio] 62.30 kg/m2 62.30 kg/m2 eCW1 ([facility]) Heart rate 88 /min 88 /min eCW1 ([facility]) Respiratory rate 20 /min 20 /min eCW1 ([facility]) Body temperature 97.6 [degF] 97.6 [degF] eCW1 ( [facility]) Systolic blood pressure 142 mm[Hg] 142 mm[Hg] e CW1 ([facility]) Diastolic blood pressure 96 mm[Hg] 96 mm[Hg] eCW1 ([facility]) Patient Treatment Plan of Care Planned Activity Planned Date Details Description Data Source (s) gabapentin 100 MG Oral Capsule 05/25/2021 12:00:00 AM EDT eCW1 ([facility]) gabapentin 100 MG Oral Capsule 05/25/2021 12:00:00 AM EDT eCW1 ([facility]) gabapentin 100 MG Oral Capsule 05/25/2021 12:00:00 AM EDT eCW1 ([facility]) gabapentin 100 MG Oral Capsule 05/25/2021 12:00:00 AM EDT eCW1 ([facility]) gabapentin 100 MG Oral Capsule 05/25/2021 12:00:00 AM EDT eCW1 ([facility]) gabapentin 100 MG Oral Capsule 05/25/2021 12:00:00 AM EDT eCW1 ([facility]) gabapentin 100 MG Oral Capsule 05/25/2021 12:00:00 AM EDT eCW1 ([facility]) gabapentin 100 MG Oral Capsule 05/25/2021 12:00:00 AM EDT eCW1 ([facility]) gabapentin 100 MG Oral Capsule 05/25/2021 12:00:00 AM EDT eCW1 ([facility]) gabapentin 100 MG Oral Capsule 05/25/2021 12:00:00 AM EDT eCW1 ([facility]) Anoro Ellipta umeclidinium 62.5 mcg and vilanterol 25 mcg 04/04/2021 12:00:00 AM EDT eCW1 ([facility]) Anoro Ellipta umeclidinium 62.5 mcg and vilanterol 25 mcg 04/04/2021 12:00:00 AM EDT eCW1 ([facility]) Anoro Ellipta umeclidinium 62.5 mcg and vilanterol 25 mcg 04/04/2021 12:00:00 AM EDT eCW1 ([facility]) Anoro Ellipta umeclidinium 62.5 mcg and vilanterol 25 mcg 04/04/2021 12:00:00 AM EDT eCW1 ([facility]) Anoro Ellipta umeclidinium 62.5 mcg and vilanterol 25 mcg 04/04/2021 12:00:00 AM EDT eCW1 ([facility]) Anoro Ellipta umeclidinium 62.5 mcg and vilanterol 25 mcg 04/04/2021 12:00:00 AM EDT eCW1 ([facility]) Anoro Ellipta umeclidinium 62.5 mcg and vilanterol 25 mcg 04/04/2021 12:00:00 AM EDT eCW1 ([facility]) Anoro Ellipta umeclidinium 62.5 mcg and vilanterol 25 mcg 04/04/2021 12:00:00 AM EDT eCW1 ([facility]) Anoro Ellipta umeclidinium 62.5 mcg and vilanterol 25 mcg 04/04/2021 12:00:00 AM EDT eCW1 ([facility]) Anoro Ellipta umeclidinium 62.5 mcg and vilanterol 25 mcg 04/04/2021 12:00:00 AM EDT eCW1 ([facility]) Anoro Ellipta umeclidinium 62.5 mcg and vilanterol 25 mcg 04/04/2021 12:00:00 AM EDT eCW1 ([facility]) Anoro Ellipta umeclidinium 62.5 mcg and vilanterol 25 mcg 04/04/2021 12:00:00 AM EDT eCW1 ([facility]) buspirone hydrochloride 7.5 MG Oral Tablet 03/11/2021 12:00:00 AM E DT eCW1 ([facility]) 24 HR venlafaxine 37.5 MG Extended Release Oral Capsul e 03/11/2021 12:00:00 AM EDT eCW1 ([facility]) Trazodone Hydrochloride 50 MG Oral Tablet 03/11/2021 12:00:00 AM ED T eCW1 ([facility]) buspirone hydrochloride 7.5 MG Oral Tablet 03/11/2021 12:00:00 AM E DT eCW1 ([facility]) 24 HR venlafaxine 37.5 MG Extended Release Oral Capsul e 03/11/2021 12:00:00 AM EDT eCW1 ([facility]) Trazodone Hydrochloride 50 MG Oral Tablet 03/11/2021 12:00:00 AM ED T eCW1 ([facility]) buspirone hydrochloride 7.5 MG Oral Tablet 03/11/2021 12:00:00 AM E DT eCW1 ([facility]) 24 HR venlafaxine 37.5 MG Extended Release Oral Capsul e 03/11/2021 12:00:00 AM EDT eCW1 ([facility]) Trazodone Hydrochloride 50 MG Oral Tablet 03/11/2021 12:00:00 AM ED T eCW1 ([facility]) buspirone hydrochloride 7.5 MG Oral Tablet 03/11/2021 12:00:00 AM E DT eCW1 ([facility]) 24 HR venlafaxine 37.5 MG Extended Release Oral Capsul e 03/11/2021 12:00:00 AM EDT eCW1 ([facility]) Trazodone Hydrochloride 50 MG Oral Tablet 03/11/2021 12:00:00 AM ED T eCW1 ([facility]) CPAP mask 12/12/2020 12:00:00 AM EST e CW1 ([facility]) CPAP mask 12/12/2020 12:00:00 AM EST e CW1 ([facility]) rivaroxaban 20 MG Oral Tablet [Xarelto] 11/26/2020 12:00:00 AM EST eCW1 ([facility]) rivaroxaban 20 MG Oral Tablet [Xarelto] 11/26/2020 12:00:00 AM EST eCW1 ([facility]) rivaroxaban 20 MG Oral Tablet [Xarelto] 11/26/2020 12:00:00 AM EST eCW1 ([facility]) rivaroxaban 20 MG Oral Tablet [Xarelto] 11/26/2020 12:00:00 AM EST eCW1 ([facility]) rivaroxaban 20 MG Oral Tablet [Xarelto] 11/26/2020 12:00:00 AM EST eCW1 ([facility]) rivaroxaban 20 MG Oral Tablet [Xarelto] 11/26/2020 12:00:00 AM EST eCW1 ([facility]) rivaroxaban 20 MG Oral Tablet [Xarelto] 11/26/2020 12:00:00 AM EST eCW1 ([facility]) rivaroxaban 20 MG Oral Tablet [Xarelto] 11/26/2020 12:00:00 AM EST eCW1 ([facility]) rivaroxaban 20 MG Oral Tablet [Xarelto] 11/26/2020 12:00:00 AM EST eCW1 ([facility]) Fluoxetine 20 MG Oral Capsule 11/26/2020 12:00:00 AM EST eCW1 ([facility]) rivaroxaban 20 MG Oral Tablet [Xarelto] 11/26/2020 12:00:00 AM EST eCW1 ([facility]) Fluoxetine 20 MG Oral Capsule 11/26/2020 12:00:00 AM EST eCW1 ([facility]) rivaroxaban 20 MG Oral Tablet [Xarelto] 11/26/2020 12:00:00 AM EST eCW1 ([facility]) Fluoxetine 20 MG Oral Capsule 11/26/2020 12:00:00 AM EST eCW1 ([facility]) rivaroxaban 20 MG Oral Tablet [Xarelto] 11/26/2020 12:00:00 AM EST eCW1 ([facility]) Fluoxetine 20 MG Oral Capsule 11/26/2020 12:00:00 AM EST eCW1 ([facility]) rivaroxaban 20 MG Oral Tablet [Xarelto] 11/26/2020 12:00:00 AM EST eCW1 ([facility]) rivaroxaban 20 MG Oral Tablet [Xarelto] 11/26/2020 12:00:00 AM EST eCW1 ([facility]) rivaroxaban 20 MG Oral Tablet [Xarelto] 11/26/2020 12:00:00 AM EST eCW1 ([facility]) Fluoxetine 20 MG Oral Capsule 11/26/2020 12:00:00 AM EST eCW1 ([facility]) rivaroxaban 20 MG Oral Tablet [Xarelto] 11/26/2020 12:00:00 AM EST eCW1 ([facility]) Fluoxetine 20 MG Oral Capsule 11/26/2020 12:00:00 AM EST eCW1 ([facility]) rivaroxaban 20 MG Oral Tablet [Xarelto] 11/26/2020 12:00:00 AM EST eCW1 ([facility])
[2021-08-19 18:16] LABS: BASO % 0.2 % (0.0-1.0); EOS # 0.1 10^3/uL (0.0-0.5); EOS % 0.8 % (0.0-3.0); LYMPH # 1.2 10^3/uL (1.5-5.0); LYMPH % 8.7 % (24.0-44.0); MEAN CORPUSCULAR HEMOGLOBIN 18.2 pg (27.0-33.0); MEAN CORPUSCULAR HGB CONC 25.9 g/dl (32.0-36.5); MEAN CORPUSCULAR VOLUME 70.1 fl (80.0-96.0); MONO # 0.7 10^3/uL (0.0-0.8); MONO % 4.7 % (2.0-8.0); NEUTROPHILS % 84.9 % (36.0-66.0); PLATELET COUNT, AUTOMATED 420 10^3/uL (150-450); RED BLOOD COUNT 3.85 10^6/uL (4.00-5.40); WHITE BLOOD COUNT 14.2 10^3/uL (4.0-10.0)
[2021-08-19 18:45] LABS: INR 1.28; PARTIAL THROMBOPLASTIN TIME 32.2 SECONDS (25.9-37.0); PROTHROMBIN TIME 16.5 SECONDS (12.7-14.5)
[2021-08-19 18:46] LABS: ALBUMIN 3.6 GM/DL (3.2-5.2); ALT/SGPT 16 U/L (12-78); BILIRUBIN,DIRECT 0.1 MG/DL (0.0-0.2); BILIRUBIN,TOTAL 0.5 MG/DL (0.2-1.0); BLOOD UREA NITROGEN 19 MG/DL (7-18); CALCIUM LEVEL 8.5 MG/DL (8.8-10.2); CARBON DIOXIDE LEVEL 28 MEQ/L (21-32); CHLORIDE LEVEL 105 MEQ/L (98-107); CK-MB VALUE MASS < 1.0 NG/ML (<3.6); CPK CREATINE PHOSPHOKINASE 28 U/L (26-192); CREATININE FOR GFR 1.03 MG/DL (0.55-1.30); GLUCOSE, FASTING 137 MG/DL (70-100); LIPASE 211 U/L (73-393); MB/CK RELATIVE INDEX 3.57 (< OR =4); POTASSIUM SERUM 4.4 MEQ/L (3.5-5.1); SODIUM LEVEL 138 MEQ/L (136-145); THYROID STIMULATING HORMONE 0.486 uIU/ML (0.358-3.740); TOTAL PROTEIN 7.9 GM/DL (6.4-8.2); TROPONIN I < 0.02 NG/ML (< 0.10)
--- OUTSIDE RECORDS SUMMARY | 2021-08-19 18:46 | CCD ---
Author Author [facility] Organization [facility] Address Unknown Phone Unavailable Care Team Providers Care Anesthesiology Resident Name Role Phone Haley Bailey MD Unavailable [...] P Jaycob DO Unavailable Unavailable Rechlin, P Jaycbo DO Unavailable Unavailable Rechlin, P Jaycob DO [...] is protected by Article 27-F of the [facility] Public Health law. If you continue you may have access to information: Regarding HIV / AIDS; Provided by facilities licensed or operated by the [facility] Office of Mental Health; or Provided by the [facility] Office for People With Developmental Disabilities. If such information is present, then the following [facility] mandated warning applies: This information has [...] law may result in a fine or alf sentence or both. A general authorization for the release of medical or other information is NOT sufficient authorization for further disc losure. Encounters Encounter Providers Location Date Indications Data Source(s ) Unknown [address] [facility] [id number] 08/09/2021 12:00:00 AM EDT eCW1 ([facility]) Unknown [address] [facility] [address] 06/15/2021 12:00:00 AM EDT eCW1 ([facility]) Unknown [address] [facility] [place] [address] 06/14/2021 12:00:00 AM EDT eCW1 ([facility]) Unknown [address] [facility] [address] 05/28/2021 12:00:00 AM EDT eCW1 ([facility]) Unknown [address] [facility] [address] 05/26/2021 12:00:00 AM EDT eCW1 ([facility] [place]) Outpatient [address] [facility] Y [address] 05/25/2021 12:00:00 AM EDT eCW1 ([facility]) Unknown [address] [facility] Y [address] 05/25/2021 12:00:00 AM EDT eCW1 ([facility]) Outpatient [address] [facility] [address] 05/24/2021 12:00:00 AM EDT eCW1 ([facility]) [place] [address] [facility] [address] 05/18/2021 12:00:00 AM EDT [facility]1 ([facility] [place] [address] [facility] [place] [address] 05/18/2021 12:00:00 AM EDT [facility]CW1 ([facility] [place] [address] [facility] [address] 05/16/2021 12:00:00 AM EDT [facility]CW1 ([facility]) [place] [address] [facility] [place] [address] 05/12/2021 12:00:00 AM EDT eCW1 ([facility]) [place] [address] [facility] [address] 05/12/2021 12:00:00 AM EDT eCW1 ([facility]) [place] [address] [facility] [address] 05/09/2021 12:00:00 AM EDT eCW1 ([facility]) Outpatient Attender: Haley Torres/[place]/Oni ndl 04/23/2021 01:23:00 AM EDT MEDENT ([facility]) Outpatient Attender: Haley Torres/[place]/Oni ndl 04/22/2021 01:23:00 AM EDT MEDENT ([facility]) Outpatient Attender: Jaycob Marquez/[place]/Oni ndl 04/21/2021 01:23:00 AM EDT MEDENT ([facility]) Outpatient Attender: Jaycob Marquez/[place]/Oni ndl 04/20/2021 01:23:00 AM EDT MEDENT ([facility]) Outpatient Attender: Jaycob Marquez/[place]/Oni ndl 04/19/2021 01:23:00 AM EDT MEDENT ([facility]) Outpatient Attender: Jaycob Marquez/[place]/Oni ndl 04/18/2021 01:23:00 AM EDT MEDENT ([facility]) Outpatient Attender: Jaycob Marquez/[place]/Oni ndl 04/17/2021 01:23:00 AM EDT MEDENT ([facility]) Outpatient Attender: Jaycob Marquez/[place]/Oni ndl 04/16/2021 01:23:00 AM EDT MEDENT ([facility]) Outpatient Attender: Jaycob Marquez/[place]/Oni ndl 04/15/2021 01:23:00 AM EDT MEDENT ([facility]) Outpatient Attender: Timmy Torres/[place]/R eindl 04/14/2021 01:23:00 AM EDT MED[facility] ([facility]) Outpatient Attender: Timmy Torres/[place]/R eindl 04/13/2021 01:23:00 AM EDT MEDENT ([facility]) Outpatient Attender: Timmy Torres/[place]/R eindl 04/12/2021 01:23:00 AM EDT MEDENT ([facility]) Outpatient Attender: Timmy Torres/[place]/R eindl 04/11/2021 01:23:00 AM EDT MED[facility] ([facility]) Outpatient Attender: Timmy Torres/[place]ar[place]/R eindl 04/10/2021 01:23:00 AM EDT MED[facility] ([facility]) Outpatient Attender: Timmy Torres/Misa/[place]arco/R eindl 04/09/2021 01:23:00 AM EDT MEDENT ([facility]) Unknown [address] [place], [place] [address] [address] 04/05/2021 12:00:00 AM EDT eCW1 ([facility]) Outpatient Attender: Haley Torres/[place]/Oni ndl 03/26/2021 01:23:00 AM EDT [facility] ([facility] Outpatient Attender: Haley Torres/[place]/Oni ndl 03/25/2021 01:23:00 AM EDT [facility] ([facility] Outpatient Attender: Haley Torres/[place]/Oni ndl 03/24/2021 01:23:00 AM EDT [facility] ([facility] Outpatient Attender: Haley Torres/[place]/Oni ndl 03/23/2021 01:23:00 AM EDT [facility] ([facility] Outpatient Attender: Haley Torres/[place]/Oni ndl 03/22/2021 01:23:00 AM EDT [facility] ([facility] [place] [address] [facility] [address] 03/14/2021 12:00:00 AM EDT eCW1 ([facility]) [place] [address] [facility] [address] 03/11/2021 12:00:00 AM EDT eCW1 ([facility]) [place] [address] [facility] [address] 02/16/2021 12:00:00 AM EDT eCW1 ([facility]) [place] [address] [facility] [address] 12/02/2020 12:00:00 AM EST eCW1 ([facility]) [place] [address] [facility] [address] 11/29/2020 12:00:00 AM EST eCW1 ([facility]) [place] [address] [facility] [address] 11/29/2020 12:00:00 AM EST eCW1 ([facility]) [place] [address] [facility] [address] 11/29/2020 12:00:00 AM EST eCW1 ([facility]) [place]patient [address] [facility] [address] 11/26/2020 12:00:00 AM EST eCW1 ([facility]) [place] [address] [facility] [address] 11/26/2020 12:00:00 AM EST eCW1 ([facility]) [place] [address] [facility] [address] 11/19/2020 12:00:00 AM EST eCW1 ([facility]) [place] [address] [facility] [address] 11/19/2020 12:00:00 AM EST eCW1 ([facility]) [place] [address] [facility] [address] 11/16/2020 12:00:00 AM EST eCW1 ([facility]) [place] [address] [facility] [address] 11/12/2020 12:00:00 AM EST eCW1 ([facility]) [place] [address] [facility] [address] 10/25/2020 12:00:00 AM EST eCW1 ([facility]) Unknown [address] [facility] [address] 10/23/2020 12:00:00 AM EST eCW1 ([facility]) [place] [address] [facility] [address] 10/21/2020 12:00:00 AM EST eCW1 ([facility]) [place] [address] [facility] [address] 10/04/2020 12:00:00 AM EST eCW1 ([facility]) Unknown [address] [facility] [address] 08/11/2020 12:00:00 AM EST eCW1 ([facility]) Unknown [address] [facility] [address] 08/03/2020 12:00:00 AM EDT eCW1 ([facility]) Unknown [address] [facility] [address] 07/27/2020 12:00:00 AM EDT eCW1 ([facility]) Unknown [address] [facility] [address] 06/29/2020 12:00:00 AM EDT eCW1 ([facility]) Unknown [address] [facility] [address] 06/29/2020 12:00:00 AM EDT eCW1 ([facility]) [place] [address] [facility] [address] 06/29/2020 12:00:00 AM EDT eCW1 ([facility]) Immunizations Vaccine Date Status Description Data Source(s) COVID-19 VACCINE Moderna 02/07/2021 12:00:00 AM EDT completed [facility] Vaccine Series Complete: YESThis Data wa s Submitted to [facility] Via [facility]. COVID-19 VACC,MRNA(MODERNA)/PF 02/07/2021 12:00:00 AM EDT completed [facility] COVID-19 VACCINE Moderna 01/07/2021 12:00:00 AM EDT completed [facility] Vaccine Series Complete: NOThis Data was Submitted to [facility] Via [employer]. COVID-19 VACCINE, MRNA-[id number], LNP-S (MODERNA)/PF 01/07/2021 1 [...] BY MOUTH TWICE A DAY SOLD: 06/25/2021 [facility] 40 mg 05/28/2021 12:00:00 AM EDT [...] MOUTH TWICE A DAY SOLD: 07/23/2021 [facility] pantoprazole 40 MG Delayed Release Oral Tablet PANTOPRAZOLE SODIUM 05/28/2021 12:00:00 AM EDT tablet,delayed release (DR/EC) 30 T NARENDRA ONE TABLET BY MOUTH EVERY DAY TAKE ONE TABLET BY MOUTH EVERY DAY SOLD: 07/23/2021 [facility] gabapentin 100 MG Oral Capsule Gabapentin 100 MG Gabapentin 100 MG 05/25/2021 12:00:00 AM EDT 1.0 {capsule} active G abapentin 100 MG eCW1 ([facility]) 100 mg 05/25/2021 12:00:00 AM EDT capsule 90 TAKE ONE CAPSULE BY MOUTH THREE TIMES A DAY TAKE ONE CAPSULE BY MOUTH THREE TIMES A DAY SOLD: 06/22/2021 [facility] gabapentin 100 MG Oral Capsule Gabapentin 100 MG Gabapentin 100 MG 05/25/2021 12:00:00 AM EDT 1.0 {capsule} active G abapentin 100 MG eCW1 ([facility]) 90 mcg/actuation 05/25/2021 12:00:00 AM EDT HFA aerosol inha ler 6 INHALE 2 PUFFS BY MOUTH EVERY 4 HOURS NEEDED INHALE 2 PUFFS BY MOUTH EVERY 4 HOURS NEEDED SOLD: 08/09/2021 [facility] 100 mg 05/25/2021 12:00:00 AM EDT capsule 90 TAKE ONE CAPSULE BY MOUTH THREE TIMES A DAY TAKE ONE CAPSULE BY MOUTH THREE TIMES A DAY SOLD: 07/20/2021 [facility] gabapentin 100 MG Oral Capsule Gabapentin 100 MG Gabapentin 100 MG 05/25/2021 12:00:00 AM EDT 1.0 {capsule} active G abapentin 100 MG eCW1 ([facility]) gabapentin 100 MG Oral Capsule Gabapentin 100 MG Gabapentin 100 MG 05/25/2021 12:00:00 AM EDT 1.0 {capsule} active G abapentin 100 MG eCW1 ([facility]) 90 mcg/actuation 05/25/2021 12:00:00 AM EDT HFA [...] {capsule} active G abapentin 100 MG eCW1 ([facility]) gabapentin 100 MG Oral Capsule Gabapentin 100 MG Gabapentin 100 MG 05/25/2021 12:00:00 AM EDT 1.0 {capsule} active G abapentin 100 MG eCW1 ([facility]) 90 mcg/actuation 05/25/2021 12:00:00 AM EDT HFA aerosol inha ler 6 INHALE 2 PUFFS BY MOUTH EVERY 4 HOURS NEEDED INHALE 2 PUFFS BY MOUTH EVERY 4 HOURS NEEDED SOLD: 05/25/2021 [facility] 50 mcg/actuation 05/25/2021 12:00:00 AM EDT spray,suspension 15 SPRAY 1 SPRAY IN EACH NOSTRIL ONCE DAILY SPRAY 1 SPRAY IN EACH NOSTRIL ONCE DAILY SOLD: 06/21/2021 [facility] 10 mg 05/25/2021 12:00:00 AM EDT tablet 60 TAKE ONE TABLET BY MOUTH TWICE A DAY WITH FOOD TAKE ONE TABLET BY MOUTH TWICE A DAY WITH FOOD SOLD: 06/23/2021 [facility] 50 mcg/actuation 05/25/2021 12:00:00 AM EDT spray,suspension 15 SPRAY 1 SPRAY IN EACH NOSTRIL ONCE DAILY SPRAY 1 SPRAY IN EACH NOSTRIL ONCE DAILY SOLD: 08/14/2021 [facility] 90 mcg/actuation 05/25/2021 12:00:00 AM EDT HFA aerosol inha ler 6 INHALE 2 PUFFS BY MOUTH EVERY 4 HOURS NEEDED INHALE 2 PUFFS BY MOUTH EVERY 4 HOURS NEEDED SOLD: 07/10/2021 [facility] gabapentin 100 MG Oral Capsule Gabapentin 100 MG Gabapentin 100 MG 05/25/2021 12:00:00 AM EDT 1.0 {capsule} active G abapentin 100 MG eCW1 ([facility]) 50 mcg/actuation 05/25/2021 12:00:00 AM EDT spray,suspension [...] {capsule} active G abapentin 100 MG eCW1 ([facility]) gabapentin 100 MG Oral Capsule Gabapentin 100 MG Gabapentin 100 MG 05/25/2021 12:00:00 AM EDT 1.0 {capsule} active G abapentin 100 MG eCW1 ([facility]) 30 ACTUAT umeclidinium 0.0625 MG/ACTUAT / vilanterol 0.025 MG/ACTUAT Dry Powder Inhaler [Anoro] 62.5-25 mcg/actuation UMECLIDINIUM BRM/VILANTEROL TR 05/25/2021 12:00:00 AM EDT blister with device 60 INHALE 1 PUFF BY M OUTH ONCE DAILY INHALE 1 PUFF BY MOUTH ONCE DAILY SOLD: 06/19/2021 [facility] 50 mcg/actuation 05/25/2021 12:00:00 AM EDT spray,suspension 15 SPRAY 1 SPRAY IN EACH NOSTRIL ONCE DAILY SPRAY 1 SPRAY IN EACH NOSTRIL ONCE DAILY SOLD: 2021 [facility] gabapentin 100 MG Oral Capsule Gabapentin 100 MG Gabapentin 100 MG 05/25/2021 12:00:00 AM EDT 1.0 {capsule} active G abapentin 100 MG eCW1 ([facility]) 10 mg 05/12/2021 12:00:00 AM EDT tablet [...] A DAY WITH A MEAL SOLD: 05/12/2021 [facility] 50 mg 05/10/2021 12:00:00 AM EDT tablet 60 TAKE 1-2 TABLETS BY MOUTH AT BEDTIME NEEDED TAKE 1-2 TABLETS BY MOUTH AT BEDTIME NEEDED SOLD: 06/07/2021 [facility] 37.5 mg 05/10/2021 12:00:00 AM EDT [...] A DAY NEEDED SOLD: 021 [facility] 7.5 mg 05/10/2021 12:00:00 AM EDT tablet 60 TAKE ONE TABLET BY MOUTH TWICE A DAY NEEDED TAKE ONE TABLET BY MOUTH TWICE A DAY NEEDED SOLD: 021 [facility] 50 mg 05/10/2021 12:00:00 AM [...] ACTUAT Albuterol 0.1 MG/ACTUAT / Ipr atropium [place] 0.02 MG/ACTUAT Metered Dose Inhaler [Combivent] 20-100 [...] 62.5 mcg and vilanterol 25 mcg eCW1 ([facility]) Anoro Ellipta umeclidinium 62.5 mcg and vilanterol 25 mcg UN 04/04/2021 12:00:00 AM EDT active Anoro Ellipta umeclidinium 62.5 mcg and vilanterol 25 mcg eCW1 ([facility]) Anoro Ellipta umeclidinium 62.5 mcg and vilanterol 25 mcg UN 04/04/2021 12:00:00 AM EDT active Anoro Ellipta umeclidinium 62.5 mcg and vilanterol 25 mcg eCW1 ([facility]) Anoro Ellipta umeclidinium 62.5 mcg and vilanterol 25 mcg UN 04/04/2021 12:00:00 AM EDT active Anoro Ellipta umeclidinium 62.5 mcg and vilanterol 25 mcg eCW1 ([facility]) Anoro Ellipta umeclidinium 62.5 mcg and vilanterol 25 mcg UN K 04/04/2021 12:00:00 AM EDT active Anoro Ellipta umeclidinium 62.5 mcg and vilanterol 25 mcg eCW1 ([facility]) Anoro Ellipta umeclidinium 62.5 mcg and vilanterol 25 mcg UN K 04/04/2021 12:00:00 AM EDT active Anoro Ellipta umeclidinium 62.5 mcg and vilanterol 25 mcg eCW1 ([facility]) Anoro Ellipta umeclidinium 62.5 mcg and vilanterol 25 mcg UN 04/04/2021 12:00:00 AM EDT active Anoro Ellipta umeclidinium 62.5 mcg and vilanterol 25 mcg eCW1 ([facility]) Anoro Ellipta umeclidinium 62.5 mcg and vilanterol 25 mcg UN K 04/04/2021 12:00:00 AM EDT active Anoro Ellipta umeclidinium 62.5 mcg and vilanterol 25 mcg eCW1 ([facility]) 20 mg 04/04/2021 12:00:00 AM EDT tablet 30 TAKE ONE TABLET BY MOUTH EVERY DAY TAKE ONE TABLET BY MOUTH EVERY DAY SOLD: 04/04/2021 [facility] Anoro Ellipta umeclidinium 62.5 mcg and vilanterol 25 mcg [facility] 04/04/2021 12:00:00 AM EDT active Anoro Ellipta umeclidinium 62.5 mcg and vilanterol 25 mcg eCW1 ([facility]) Anoro Ellipta umeclidinium 62.5 mcg and vilanterol 25 mcg [facility] 04/04/2021 12:00:00 AM EDT active Anoro Ellipta umeclidinium 62.5 mcg and vilanterol 25 mcg eCW1 ([facility]) Anoro Ellipta umeclidinium 62.5 mcg and vilanterol 25 mcg [facility] 04/04/2021 12:00:00 AM EDT active Anoro Ellipta umeclidinium 62.5 mcg and vilanterol 25 mcg eCW1 ([facility]) Anoro Ellipta umeclidinium 62.5 mcg and vilanterol 25 mcg [facility] 04/04/2021 12:00:00 AM EDT active Anoro Ellipta umeclidinium 62.5 mcg and vilanterol 25 mcg eCW1 ([facility]) 100,000 unit/gram 04/04/2021 12:00:00 AM EDT powder 60 TOPICALLY TWO TIMES A DAY FOR 10 DAYS TOPICALLY TWO TIMES A DAY FOR 10 DAYS SOLD: 04/04/2021 [facility] Anoro Ellipta umeclidinium 62.5 mcg and vilanterol 25 mcg [facility] 04/04/2021 12:00:00 AM EDT active Anoro Ellipta umeclidinium 62.5 mcg and vilanterol 25 mcg eCW1 ([facility]) Anoro Ellipta umeclidinium 62.5 mcg and vilanterol 25 mcg [facility] 04/04/2021 12:00:00 AM EDT active Anoro Ellipta umeclidinium 62.5 mcg and vilanterol 25 mcg eCW1 ([facility]) Anoro Ellipta umeclidinium 62.5 mcg and vilanterol 25 mcg UN K 04/04/2021 12:00:00 AM EDT active Anoro Ellipta umeclidinium 62.5 mcg and vilanterol 25 mcg eCW1 ([facility]) Anoro Ellipta umeclidinium 62.5 mcg and vilanterol 25 mcg UN K 04/04/2021 12:00:00 AM EDT active Anoro Ellipta umeclidinium 62.5 mcg and vilanterol 25 mcg eCW1 ([facility]) 37.5 mg 03/11/2021 12:00:00 AM EDT capsule,extended [...] BY MOUTH AT BEDTIME NEEDED SOLD: 04/06/2021 [facility] buspirone hydrochloride 7.5 MG Oral Tablet busPIRone H Cl 7.5 MG busPIRone HCl 7.5 MG 03/11/2021 12:00:00 AM EDT 1.0 {tablet} activ e busPIRone HCl 7.5 MG eCW1 ([facility]) buspirone hydrochloride 7.5 MG Oral Tablet busPIRone H Cl 7.5 MG busPIRone HCl 7.5 MG 03/11/2021 12:00:00 AM EDT 1.0 {tablet} activ e busPIRone HCl 7.5 MG eCW1 ([facility]) 7.5 mg 03/11/2021 12:00:00 AM EDT tablet 60 TAKE ONE TABLET BY MOUTH TWICE A DAY NEEDED TAKE ONE TABLET BY MOUTH TWICE A DAY NEEDED SOLD: 021 [facility] Trazodone Hydrochloride 50 MG Oral Tablet traZODone HC l 50 MG traZODone HCl 50 MG 03/11/2021 12:00:00 AM EDT active traZODone HCl 50 MG eCW1 ([facility]) Trazodone Hydrochloride 50 MG Oral Tablet traZODone HC l 50 MG traZODone HCl 50 MG 03/11/2021 12:00:00 AM EDT active traZODone HCl 50 MG eCW1 ([facility]) buspirone hydrochloride 7.5 MG Oral Tablet busPIRone H Cl 7.5 MG busPIRone HCl 7.5 MG 03/11/2021 12:00:00 AM EDT 1.0 {tablet} activ e busPIRone HCl 7.5 MG eCW1 ([facility]) 7.5 mg 03/11/2021 12:00:00 AM EDT tablet 60 TAKE ONE TABLET BY MOUTH TWICE A DAY NEEDED TAKE ONE TABLET BY MOUTH TWICE A DAY NEEDED SOLD: 021 [facility] 24 HR venlafaxine 37.5 MG Extended Relea se Oral Capsule Venlafaxine HCl ER 37.5 MG Venlafaxine HCl ER 37.5 MG 03/11/2021 12:00:00 AM EDT 1.0 {capsule_with_food} active Venlafaxine HCl ER 37.5 MG eCW1 ([facility]) 24 HR venlafaxine 37.5 MG Extended Relea se Oral Capsule Venlafaxine HCl ER 37.5 MG Venlafaxine HCl ER 37.5 MG 03/11/2021 12:00:00 AM EDT 1.0 {capsule_with_food} active Venlafaxine HCl ER 37.5 MG eCW1 ([facility]) 24 HR venlafaxine 37.5 MG Extended Relea se Oral Capsule Venlafaxine HCl ER 37.5 MG Venlafaxine HCl ER 37.5 MG 03/11/2021 12:00:00 AM EDT 1.0 {capsule_with_food} active Venlafaxine HCl ER 37.5 MG eCW1 ([facility]) Trazodone Hydrochloride 50 MG Oral Tablet traZODone HC l 50 MG traZODone HCl 50 MG 03/11/2021 12:00:00 AM EDT active traZODone HCl 50 MG eCW1 ([facility]) Trazodone Hydrochloride 50 MG Oral Tablet TraZODone HC l 50 MG TraZODone HCl 50 MG 03/11/2021 12:00:00 AM EDT active TraZODone HCl 50 MG eCW1 ([facility]) buspirone hydrochloride 7.5 MG Oral Tablet BusPIRone H Cl 7.5 MG BusPIRone HCl 7.5 MG 03/11/2021 12:00:00 AM EDT 1.0 {tablet} activ e BusPIRone HCl 7.5 MG eCW1 ([facility]) 50 mg 03/11/2021 12:00:00 AM EDT tablet [...] active Venlafaxine HCl ER 37.5 MG eCW1 ([facility]) CPAP mask UNK 12/12/2020 12:00:00 AM EST active CPAP mask eCW1 ([facility]) CPAP mask UNK 12/12/2020 12:00:00 AM EST active CPAP mask eCW1 ([facility]) CPAP mask UNK 12/12/2020 12:00:00 AM EST active CPAP mask eCW1 ([facility]) CPAP mask UNK 12/12/2020 12:00:00 AM EST active CPAP mask eCW1 ([facility]) CPAP mask UNK 12/12/2020 12:00:00 AM EST active CPAP mask eCW1 ([facility]) CPAP mask UNK 12/12/2020 12:00:00 AM EST active CPAP mask eCW1 ([facility]) CPAP mask UNK 12/12/2020 12:00:00 AM EST active CPAP mask eCW1 ([facility]) CPAP mask UNK 12/12/2020 12:00:00 AM EST active CPAP mask eCW1 ([facility]) CPAP mask UNK 12/12/2020 12:00:00 AM EST active CPAP mask eCW1 ([facility]) CPAP mask UNK 12/12/2020 12:00:00 AM EST active CPAP mask eCW1 ([facility]) CPAP mask UNK 12/12/2020 12:00:00 AM EST active CPAP mask eCW1 ([facility]) CPAP mask UNK 12/12/2020 12:00:00 AM EST active CPAP mask eCW1 ([facility]) CPAP mask UNK 12/12/2020 12:00:00 AM EST active CPAP mask eCW1 ([facility]) CPAP mask UNK 12/12/2020 12:00:00 AM EST active CPAP mask eCW1 ([facility]) CPAP mask UNK 12/12/2020 12:00:00 AM EST active CPAP mask eCW1 ([facility]) CPAP mask UNK 12/12/2020 12:00:00 AM EST active CPAP mask eCW1 ([facility]) CPAP mask UNK 12/12/2020 12:00:00 AM EST active CPAP mask eCW1 ([facility]) CPAP mask UNK 12/12/2020 12:00:00 AM EST active CPAP mask eCW1 ([facility]) CPAP mask UNK 12/12/2020 12:00:00 AM EST active CPAP mask eCW1 ([facility]) CPAP mask UNK 12/12/2020 12:00:00 AM EST active CPAP mask eCW1 ([facility]) 20 mg 12/11/2020 12:00:00 AM EST capsule [...] 1.0 {tablet_with_food} active Xarelto 20 MG eCW1 ([facility]) rivaroxaban 20 MG Oral Tablet [Xarelto] Xarelto 20 MG Xarelt o 20 MG 11/26/2020 12:00:00 AM EST 1.0 {tablet_with_food} active Xarelto 20 MG eCW1 ([facility]) Fluoxetine 20 MG Oral Capsule FLUoxetine HCl 20 MG FLUoxetin e HCl 20 MG 11/26/2020 12:00:00 AM EST 3.0 {tablets} active FLUoxetine HCl 20 MG eCW1 ([facility]) Fluoxetine 20 MG Oral Capsule FLUoxetine HCl 20 MG FLUoxetin e HCl 20 MG 11/26/2020 12:00:00 AM EST 3.0 {tablets} active FLUoxetine HCl 20 MG eCW1 ([facility]) rivaroxaban 20 MG Oral Tablet [Xarelto] Xarelto 20 MG Xarelt o 20 MG 11/26/2020 12:00:00 AM EST 1.0 {tablet_with_food} active Xarelto 20 MG eCW1 ([facility]) rivaroxaban 20 MG Oral Tablet [Xarelto] Xarelto 20 MG Xarelt o 20 MG 11/26/2020 12:00:00 AM EST 1.0 {tablet_with_food} active Xarelto 20 MG eCW1 ([facility]) rivaroxaban 20 MG Oral Tablet [Xarelto] Xarelto 20 MG Xarelt o 20 MG 11/26/2020 12:00:00 AM EST 1.0 {tablet_with_food} active Xarelto 20 MG eCW1 ([facility]) 20 mg 11/26/2020 12:00:00 AM EST tablet 30 TAKE ONE TABLET BY MOUTH EVERY DAY WITH FOOD TAKE ONE TABLET BY MOUTH EVERY DAY WITH FOOD SOLD: 11/26/2020 [facility] rivaroxaban 20 MG Oral Tablet [Xarelto] Xarelto 20 MG Xarelt o 20 MG 11/26/2020 12:00:00 AM EST 1.0 {tablet_with_food} active Xarelto 20 MG eCW1 ([facility]) Fluoxetine 20 MG Oral Capsule FLUoxetine HCl 20 MG FLUoxetin e HCl 20 MG 11/26/2020 12:00:00 AM EST 3.0 {tablets} active FLUoxetine HCl 20 MG eCW1 ([facility]) Fluoxetine 20 MG Oral Capsule FLUoxetine HCl 20 MG FLUoxetin e HCl 20 MG 11/26/2020 12:00:00 AM EST 3.0 {tablets} active FLUoxetine HCl 20 MG eCW1 ([facility]) 25 mg 11/26/2020 12:00:00 AM EST tablet 60 TAKE 1-2 TABLETS BY MOUTH 30 MINUTES BEFORE BED TAKE 1-2 TABLETS BY MOUTH 30 MINUTES BEFORE BED SOLD: 11/26/2020 [facility] Fluoxetine 20 MG Oral Capsule FLUoxetine HCl 20 MG FLUoxetin e HCl 20 MG 11/26/2020 12:00:00 AM EST 3.0 {tablets} active FLUoxetine HCl 20 MG eCW1 ([facility]) 50 mcg/actuation 11/26/2020 12:00:00 AM EST spray,suspension [...] 1.0 {tablet_with_food} active Xarelto 20 MG eCW1 ([facility]) Fluoxetine 20 MG Oral Capsule FLUoxetine HCl 20 MG FLUoxetin e HCl 20 MG 11/26/2020 12:00:00 AM EST 3.0 {tablets} active FLUoxetine HCl 20 MG eCW1 ([facility]) rivaroxaban 20 MG Oral Tablet [Xarelto] Xarelto 20 MG Xarelt o 20 MG 11/26/2020 12:00:00 AM EST 1.0 {tablet_with_food} active Xarelto 20 MG eCW1 ([facility]) Metformin hydrochloride 500 MG Oral Tablet METFORMIN HCL 11/26/2020 12:00:00 AM EST tablet 60 TAKE ONE TABLET BY MOUTH TWI CE A DAY WITH MEALS TAKE ONE TABLET BY MOUTH TWICE A DAY WITH MEALS SOLD: 11/26/2020 [facility] 500 mg 11/26/2020 12:00:00 AM EST tablet 60 TAKE ONE TABLET BY MOUTH TWICE A DAY WITH MEALS TAKE ONE TABLET BY MOUTH TWICE A DAY WITH MEALS SOLD: 03/11/2021 [facility] Fluoxetine 20 MG Oral Capsule FLUoxetine HCl 20 MG FLUoxetin e HCl 20 MG 11/26/2020 12:00:00 AM EST 3.0 {tablets} active FLUoxetine HCl 20 MG eCW1 ([facility]) rivaroxaban 20 MG Oral Tablet [Xarelto] Xarelto 20 MG Xarelt o 20 MG 11/26/2020 12:00:00 AM EST 1.0 {tablet_with_food} active Xarelto 20 MG eCW1 ([facility]) 25 mg 11/26/2020 12:00:00 AM EST tablet 60 TAKE 1-2 TABLETS BY MOUTH 30 MINUTES BEFORE BED TAKE 1-2 TABLETS BY MOUTH 30 MINUTES BEFORE BED SOLD: 12/22/2020 [facility] rivaroxaban 20 MG Oral Tablet [Xarelto] Xarelto 20 MG Xarelt o 20 MG 11/26/2020 12:00:00 AM EST 1.0 {tablet_with_food} active Xarelto 20 MG eCW1 ([facility]) Fluoxetine 20 MG Oral Capsule FLUoxetine HCl 20 MG FLUoxetin e HCl 20 MG 11/26/2020 12:00:00 AM EST 3.0 {tablets} active FLUoxetine HCl 20 MG eCW1 ([facility]) Fluoxetine 20 MG Oral Capsule FLUoxetine HCl 20 MG FLUoxetin e HCl 20 MG 11/26/2020 12:00:00 AM EST 3.0 {tablets} active FLUoxetine HCl 20 MG eCW1 ([facility]) 50 mcg/actuation 11/26/2020 12:00:00 AM EST spray,suspension 16 USE 1 SPRAY IN EACH NOSTRIL ONCE DAILY USE 1 SPRAY IN EACH NOSTRIL ONCE DAILY SOLD: 11/26/2020 [facility] rivaroxaban 20 MG Oral Tablet [Xarelto] Xarelto 20 MG Xarelt o 20 MG 11/26/2020 12:00:00 AM EST 1.0 {tablet_with_food} active Xarelto 20 MG eCW1 ([facility]) 20 mg 11/26/2020 12:00:00 AM EST tablet 30 TAKE ONE TABLET BY MOUTH EVERY DAY WITH FOOD TAKE ONE TABLET BY MOUTH EVERY DAY WITH FOOD SOLD: 01/16/2021 [facility] 20 mg 11/26/2020 12:00:00 AM EST tablet 30 TAKE ONE TABLET BY MOUTH EVERY DAY WITH FOOD TAKE ONE TABLET BY MOUTH EVERY DAY WITH FOOD SOLD: 03/06/2021 [facility] Metformin hydrochloride 500 MG Oral Tablet [...] 1.0 {tablet_with_food} active Xarelto 20 MG eCW1 ([facility]) 20 mg 11/26/2020 12:00:00 AM EST capsule 60 TAKE TWO CAPSULES BY MOUTH EVERY DAY IN THE MORNING TAKE TWO CAPSULES BY MOUTH EVERY DAY IN THE MORNING SO LD: 11/26/2020 [facility] 25 mg 11/26/2020 12:00:00 AM [...] 1.0 {tablet_with_food} active Xarelto 20 MG eCW1 ([facility]) rivaroxaban 20 MG Oral Tablet [Xarelto] Xarelto 20 MG Xarelt o 20 MG 11/26/2020 12:00:00 AM EST 1.0 {tablet_with_food} active Xarelto 20 MG eCW1 ([facility]) Metformin hydrochloride 500 MG Oral Tablet METFORMIN [...] {tablets} active FLUoxetine HCl 20 MG eCW1 ([facility]) 25 mg 11/26/2020 12:00:00 AM EST tablet 60 TAKE 1-2 TABLETS BY MOUTH 30 MINUTES BEFORE BED TAKE 1-2 TABLETS BY MOUTH 30 MINUTES BEFORE BED SOLD: 04/06/2021 [facility] Fluoxetine 20 MG Oral Capsule FLUoxetine HCl 20 MG FLUoxetin e HCl 20 MG 11/26/2020 12:00:00 AM EST 3.0 {tablets} active FLUoxetine HCl 20 MG eCW1 ([facility]) rivaroxaban 20 MG Oral Tablet [Xarelto] Xarelto 20 MG Xarelt o 20 MG 11/26/2020 12:00:00 AM EST 1.0 {tablet_with_food} active Xarelto 20 MG eCW1 ([facility]) rivaroxaban 20 MG Oral Tablet [Xarelto] Xarelto 20 MG Xarelt o 20 MG 11/26/2020 12:00:00 AM EST 1.0 {tablet_with_food} active Xarelto 20 MG eCW1 ([facility]) Fluoxetine 20 MG Oral Capsule FLUoxetine HCl 20 MG FLUoxetin e HCl 20 MG 11/26/2020 12:00:00 AM EST 3.0 {tablets} active FLUoxetine HCl 20 MG eCW1 ([facility]) Metformin hydrochloride 500 MG Oral Tablet METFORMIN HCL 11/26/2020 12:00:00 AM EST tablet 60 TAKE ONE TABLET BY MOUTH TWI CE A DAY WITH MEALS TAKE ONE TABLET BY MOUTH TWICE A DAY WITH MEALS SOLD: 02/13/2021 [facility] rivaroxaban 20 MG Oral Tablet [Xarelto] Xarelto 20 MG Xarelt o 20 MG 11/26/2020 12:00:00 AM EST 1.0 {tablet_with_food} active Xarelto 20 MG eCW1 ([facility]) 20 mg 11/26/2020 12:00:00 AM EST capsule 60 TAKE TWO CAPSULES BY MOUTH EVERY DAY IN THE MORNING TAKE TWO CAPSULES BY MOUTH EVERY DAY IN THE MORNING SO LD: 01/03/2021 [facility] 25 mg 11/26/2020 12:00:00 AM EST tablet 60 TAKE 1-2 TABLETS BY MOUTH 30 MINUTES BEFORE BED TAKE 1-2 TABLETS BY MOUTH 30 MINUTES BEFORE BED SOLD: 02/13/2021 [facility] rivaroxaban 20 MG Oral Tablet [Xarelto] Xarelto 20 MG Xarelt o 20 MG 11/26/2020 12:00:00 AM EST 1.0 {tablet_with_food} active Xarelto 20 MG eCW1 ([facility]) Fluoxetine 20 MG Oral Capsule FLUoxetine HCl 20 MG FLUoxetin e HCl 20 MG 11/26/2020 12:00:00 AM EST 3.0 {tablets} active FLUoxetine HCl 20 MG eCW1 ([facility]) Fluoxetine 20 MG Oral Capsule FLUoxetine HCl 20 MG FLUoxetin e HCl 20 MG 11/26/2020 12:00:00 AM EST 3.0 {tablets} active FLUoxetine HCl 20 MG eCW1 ([facility]) Fluoxetine 20 MG Oral Capsule FLUoxetine HCl 20 MG FLUoxetin e HCl 20 MG 11/26/2020 12:00:00 AM EST 3.0 {tablets} active FLUoxetine HCl 20 MG eCW1 ([facility]) 20 mg 11/26/2020 12:00:00 AM EST capsule 60 TAKE TWO CAPSULES BY MOUTH EVERY DAY IN THE MORNING TAKE TWO CAPSULES BY MOUTH EVERY DAY IN THE MORNING SO LD: 04/27/2021 [facility] Fluoxetine 20 MG Oral Capsule FLUoxetine HCl 20 MG FLUoxetin e HCl 20 MG 11/26/2020 12:00:00 AM EST 3.0 {tablets} active FLUoxetine HCl 20 MG eCW1 ([facility]) Fluoxetine 20 MG Oral Capsule FLUoxetine HCl 20 MG FLUoxetin e HCl 20 MG 11/26/2020 12:00:00 AM EST 3.0 {tablets} active FLUoxetine HCl 20 MG eCW1 ([facility]) 20 mg 11/26/2020 12:00:00 AM EST capsule 60 TAKE TWO CAPSULES BY MOUTH EVERY DAY IN THE MORNING TAKE TWO CAPSULES BY MOUTH EVERY DAY IN THE MORNING SO LD: 02/10/2021 [facility] 25 mg 11/26/2020 12:00:00 AM EST tablet 60 TAKE 1-2 TABLETS BY MOUTH 30 MINUTES BEFORE BED TAKE 1-2 TABLETS BY MOUTH 30 MINUTES BEFORE BED SOLD: 03/11/2021 [facility] Fluoxetine 20 MG Oral Capsule FLUoxetine HCl 20 MG FLUoxetin e HCl 20 MG 11/26/2020 12:00:00 AM EST 3.0 {tablets} active FLUoxetine HCl 20 MG eCW1 ([facility]) 20 mg 11/26/2020 12:00:00 AM EST tablet 30 TAKE ONE TABLET BY MOUTH EVERY DAY WITH FOOD TAKE ONE TABLET BY MOUTH EVERY DAY WITH FOOD SOLD: 05/23/2021 [facility] rivaroxaban 20 MG Oral Tablet [Xarelto] Xarelto 20 MG Xarelt o 20 MG 11/26/2020 12:00:00 AM EST 1.0 {tablet_with_food} active Xarelto 20 MG eCW1 ([facility]) 50 mcg/actuation 11/26/2020 12:00:00 AM EST spray,suspension 16 USE 1 SPRAY IN EACH NOSTRIL ONCE DAILY USE 1 SPRAY IN EACH NOSTRIL ONCE DAILY SOLD: 03/11/2021 [facility] Fluoxetine 20 MG Oral Capsule FLUoxetine HCl 20 MG FLUoxetin e HCl 20 MG 11/26/2020 12:00:00 AM EST 3.0 {tablets} active FLUoxetine HCl 20 MG eCW1 ([facility]) 20 mg 11/26/2020 12:00:00 AM EST capsule 60 TAKE TWO CAPSULES BY MOUTH EVERY DAY IN THE MORNING TAKE TWO CAPSULES BY MOUTH EVERY DAY IN THE MORNING SO LD: 03/20/2021 [facility] rivaroxaban 20 MG Oral Tablet [Xarelto] Xarelto 20 MG Xarelt o 20 MG 11/26/2020 12:00:00 AM EST 1.0 {tablet_with_food} active Xarelto 20 MG eCW1 ([facility]) Fluoxetine 20 MG Oral Capsule FLUoxetine HCl 20 MG FLUoxetin e HCl 20 MG 11/26/2020 12:00:00 AM EST 3.0 {tablets} active FLUoxetine HCl 20 MG eCW1 ([facility]) Fluoxetine 20 MG Oral Capsule FLUoxetine HCl 20 MG FLUoxetin e HCl 20 MG 11/26/2020 12:00:00 AM EST 3.0 {tablets} active FLUoxetine HCl 20 MG eCW1 ([facility]) 50 mcg/actuation 11/26/2020 12:00:00 AM EST spray,suspension 16 USE 1 SPRAY IN EACH NOSTRIL ONCE DAILY USE 1 SPRAY IN EACH NOSTRIL ONCE DAILY SOLD: 04/06/2021 [facility] rivaroxaban 20 MG Oral Tablet [Xarelto] Xarelto 20 MG Xarelt o 20 MG 11/26/2020 12:00:00 AM EST 1.0 {tablet_with_food} active Xarelto 20 MG eCW1 ([facility]) rivaroxaban 20 MG Oral Tablet [Xarelto] Xarelto 20 MG Xarelt o 20 MG 11/26/2020 12:00:00 AM EST 1.0 {tablet_with_food} active Xarelto 20 MG eCW1 ([facility]) Fluoxetine 20 MG Oral Capsule FLUoxetine HCl 20 MG FLUoxetin e HCl 20 MG 11/26/2020 12:00:00 AM EST 3.0 {tablets} active FLUoxetine HCl 20 MG eCW1 ([facility]) Fluoxetine 20 MG Oral Capsule FLUoxetine HCl 20 MG FLUoxetin e HCl 20 MG 11/26/2020 12:00:00 AM EST 3.0 {tablets} active FLUoxetine HCl 20 MG eCW1 ([facility]) 50 mcg/actuation 11/26/2020 12:00:00 AM EST spray,suspension 16 USE 1 SPRAY IN EACH NOSTRIL ONCE DAILY USE 1 SPRAY IN EACH NOSTRIL ONCE DAILY SOLD: 02/13/2021 [facility] rivaroxaban 20 MG Oral Tablet [Xarelto] Xarelto 20 MG Xarelt o 20 MG 11/26/2020 12:00:00 AM EST 1.0 {tablet_with_food} active Xarelto 20 MG eCW1 ([facility]) 20 mg 11/26/2020 12:00:00 AM EST capsule 60 TAKE TWO CAPSULES BY MOUTH EVERY DAY IN THE MORNING TAKE TWO CAPSULES BY MOUTH EVERY DAY IN THE MORNING SO LD: 06/04/2021 [facility] rivaroxaban 20 MG Oral Tablet [Xarelto] Xarelto 20 MG Xarelt o 20 MG 11/26/2020 12:00:00 AM EST 1.0 {tablet_with_food} active Xarelto 20 MG eCW1 ([facility]) Fluoxetine 20 MG Oral Capsule FLUoxetine HCl 20 MG FLUoxetin e HCl 20 MG 11/26/2020 12:00:00 AM EST 3.0 {tablets} active FLUoxetine HCl 20 MG eCW1 ([facility]) 50 mg 11/19/2020 12:00:00 AM EST tablet [...] MOUTH EVERY DAY SOLD: 2020 [facility] Hydroxyzine Hydrochloride 25 MG Oral Tablet HYDROXYZINE HCL 03/19/2020 12:00:00 AM EDT tablet 60 TAKE 1-2 TABLETS BY MOUTH NEEDED 30 MINUTES BEFORE BED TAKE 1-2 TABLETS BY MOUTH NEEDED 30 MINUTES BEFORE BED SOLD: 08/20/2020 [facility] Hydroxyzine Hydrochloride 25 MG Oral Tablet HYDROXYZINE HCL 03/19/2020 12:00:00 AM EDT tablet 60 TAKE 1-2 TABLETS BY MOUTH NEEDED 30 MINUTES BEFORE BED TAKE 1-2 TABLETS BY MOUTH NEEDED 30 MINUTES BEFORE BED SOLD: 07/25/2020 [facility] Hydroxyzine Hydrochloride 25 MG Oral Tablet [...] 30 M INUTES BEFORE BED SOLD: 09/15/2020 [facility] 20 mg 02/10/2020 12:00:00 AM [...] type / Coverage type Policy ID Covered democrat ID Covered democrat's relationship to bee Policy Bee Plan Information [facility] [id number] ANSI-Commercial [id number] [facility]-Medicaid [id number] ANSI-Commercial [id number] ANSI-Medicaid [id number] ANSI-Medicaid [id number] ANSI-doo [id number] ANSI-Medicaid [id number] [employer] [id number] ANSI-Medicaid [id number] ANSIConnectem [id number] [employer]icaid [id number] ANSIConnectem [id number] ANSI[employer]em [id number] ANSI-Medicaid [id number] [employer] [id number] ANSI-Medicaid [id number] ANSI-Medicaid [id number] ANSI-Commercial [id number] [facility] [id number] SP [id number] [facility] [id number] SP [id number] ANSI-Medicaid [id number] ANSI-Medicaid [id number] ANSI-Medicaid [id number] ANSI-Medicaid [id number] ANSI-Medicaid [id number] ANSI-Medicaid [id number] ANSI-Medicaid [id number] ANSI-Medicaid [id number] ANSI-Medicaid [id number] ANSI-Medicaid [id number] ANSI-Medicaid [id number] ANSI-Medicaid [id number] ANSI-Medicaid [id number] ANSI-Medicaid [id number] ANSI-Medicaid [id number] ANSI-Medicaid [id number] ANSI-Medicaid [id number] ANSI-Medicaid [id number] [facility]-Medicaid [id number] [facility]-Medicaid [id number] [facility]-Medicaid [id number] [facility] [id number] [facility] [id number] 26-00 Sliding Fee Scale P [id number] S 05 [id number] Problems, Conditions, and Diagnoses Code Display Name Description Problem Type Effective Dates Data Source(s) M19.90 [id number] Osteoarthritis, unsp ecified osteoarthritis type, unspecified site Problem 05/25/2021 12:00:00 AM EDT eCW1 ([facility]) E11.9 [id number] Type 2 diabetes dorota itus without complication, 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 Problem 05/25/2021 12:00:00 AM EDT eCW 1 ([facility]) J15.212 [id number] Pneumonia due to met hicillin resistant Staphylococcus aureus, unspecified laterality, unspecified part of lung Problem 05/24/2021 12:00:00 AM EDT eCW1 ([facility]) I35.0 580779352 Nonrheumatic aortic valve stenosis Proble m 05/24/2021 12:00:00 AM EDT eCW1 ([facility]) E66.2 29413307 Obesity hypoventilation syndrome Problem 05/13/2021 12:00:00 AM EDT eCW1 ([facility]) J96.21 [id number] Acute and chronic respiratory fa ilure with hypoxia Problem 05/13/2021 12:00:00 AM EDT eCW1 ([facility]) J96.22 [id number] Acute and chronic respiratory fa ilure with hypercapnia Problem 05/13/2021 12:00:00 AM EDT eCW1 ([facility]) G47.33 [id number] CHELA (obstructive sleep apnea) Problem 05/13/2021 12:00:00 AM EDT eCW1 ([facility]) N93.9 129094513 Vaginal bleeding Problem 05/12/2021 12:00:00 AM EDT eCW1 ([facility]) N93.9 [id number] Abnormal bleeding in menstrual cycle Prob cristobal 04/04/2021 12:00:00 AM EDT eCW1 ([facility]) F41.9 34883030 Anxiety Problem 03/11/2021 12:00:00 AM ED T eCW1 ([facility]) Z68.44 608393837 BMI 60.0-69.9, adult Problem 03/11/2021 12:0 0:00 AM EDT eCW1 ([facility]) G47.00 Insomnia Insomnia, unspecified type Problem 12:00:00 AM EST eCW1 ([facility]) M13.0 56470492 Polyarthropathy Problem 11/26/2020 12:00:00 AM EST eCW1 ([facility]) Surgeries/Procedures Procedure Description Date Indications Data Source(s) [facility] C[facility]/DAY 25 MINUTES 04/23/2021 12:00:00 AM EDT [facility] ([facility], ) CRITICAL CARE ILL/INJURED PATIENT INIT 30-74 MIN 04/22 12:00:00 AM EDT [facility] ([facility], ) CRITICAL CARE ILL/INJURED PATIENT INIT 30-74 MIN 04/21 12:00:00 AM EDT [facility] ([facility], ) CRITICAL CARE ILL/INJURED PATIENT INIT 30-74 MIN 04/20 12:00:00 AM EDT [facility] ([facility], ) CRITICAL CARE ILL/INJURED PATIENT INIT 30-74 MIN 04/19 12:00:00 AM EDT [facility] ([facility], ) CRITICAL CARE ILL/INJURED PATIENT INIT 30-74 MIN 04/18 12:00:00 AM EDT [facility] ([facility], ) CRITICAL CARE ILL/INJURED PATIENT INIT 30-74 MIN 04/17 12:00:00 AM EDT [facility] ([facility], ) CRITICAL CARE ILL/INJURED PATIENT INIT 30-74 MIN 04/16 12:00:00 AM EDT [facility] ([facility], ) CRITICAL CARE ILL/INJURED PATIENT INIT 30-74 MIN 04/15 12:00:00 AM EDT [facility] ([facility], ) CRITICAL CARE ILL/INJURED PATIENT ADDL 30 MIN 04/15/20 12:00:00 AM EDT [facility] ([facility], ) [facility]/DAY 25 MINUTES 04/14/2021 12:00:00 AM EDT [facility] ([facility], ) [facility] C[facility]/DAY 25 MINUTES 04/13/2021 12:00:00 AM EDT [facility] ([facility], ) [facility] C[facility]/DAY 25 MINUTES 04/12/2021 12:00:00 AM EDT [facility] ([facility], ) [facility]/DAY 25 MINUTES 04/11/2021 12:00:00 AM EDT [facility] ([facility], ) CRITICAL CARE ILL/INJURED PATIENT INIT 30-74 MIN 04/10 12:00:00 AM EDT [facility] ([facility], ) CRITICAL CARE ILL/INJURED PATIENT INIT 30-74 MIN 04/09 12:00:00 AM EDT [facility] ([facility], ) [facility] C[facility]/DAY 25 MINUTES 03/26/2021 12:00:00 AM EDT [facility] ([facility], ) CRITICAL CARE ILL/INJURED PATIENT INIT 30-74 MIN 03/25 12:00:00 AM EDT [facility] ([facility], ) CRITICAL CARE ILL/INJURED PATIENT INIT 30-74 MIN 03/24 12:00:00 AM EDT [facility] ([facility], ) [facility] C[facility]/DAY 25 MINUTES 03/23/2021 12:00:00 AM EDT [facility] ([facility], ) CRITICAL CARE ILL/INJURED PATIENT INIT 30-74 MIN 03/22 12:00:00 AM EDT [facility] ([facility]) Results ID Date Data Source [id number] 06/06/2021 08:28:00 AM EDT [facility] ([facility]) Name Value Range Interpretation Code Description Data Ally rce(s) Supporting Document(s) PDFReport Laboratory test result [facility] ([facility]) FVC-Pred 3.68 L [facility] ([facility]) FVC-%Pred-Pre 37 L [facility] ([facility]) FVC-Pre 1.39 L [facility] ([facility]) FVC-LLN 2.92 L [facility] ([facility]) Fev1-Pred 2.85 L [facility] ([facility]) Fev1-Pre 1.03 L [facility] ([facility]) Fev1-%Pred-Pre 36 L [facility] ([facility]) Fev6-Pre 1.39 L [facility] ([facility]) Fev6-Pred 3.55 L [facility] ([facility]) Fev1-LLN 2.20 L [facility] ([facility]) Fev6-%Pred-Pre 39 L [facility] ([facility]) Dvx5kwx-Gve 74 % [facility] ([facility]) Fev6-LLN 2.81 L [facility] ([facility]) Qnh9man-Aomq 78 % [facility] ([facility]) Ids9qit-FVY 68 % [facility] ([facility]) Vki7vuv-%Pred-Pre 94 % [facility] ([facility]) Lqa8mny-Akdy 97 % [facility] ([facility]) Lpz2jea-%Pred-Pre 103 % [facility] ([facility]) Jip6jbt-Ppm 100 % [facility] ([facility]) FEFMax-Pred 6.77 L/E/sec MED[facility] ([facility]) FEFMax-Pre 4.31 L/E/sec MEDENT ([facility]) FEFMax-LLN 4.89 L/E/sec MED[facility] ([facility]) FEFMax-%Pred-Pre 63 L/E/sec MED[facility] ([facility]) Osw4025-Qnz 0.69 L/E/sec MED[facility] ([facility]) Zns7775-Sbdn 2.53 L/E/sec [facility] ([facility]) Bco7618-QTE 1.17 L/E/sec [facility] ([facility]) Pzz3016-%Pred-Pre 27 L/E/sec MED[facility] ([facility]) Agi3amn2-Wjig 81 % [facility] ([facility]) ExpTime-Pre 6.64 sec MED[facility] ([facility]) Hfn8vqz4-QYZ 72 % [facility] ([facility]) Lsy9bcp1-Dho 74 % [facility] ([facility]) Jzl2kwk5-%Pred-Pre 91 % [facility] ([facility]) ID Date Data Source RENAL PROFILE 05/12/2021 12:00:00 AM EDT eCW1 ([facility]) Name Value Range Interpretation Code Description Data Ally rce(s) Supporting Document(s) 95 70-100 GLUCOSE, FASTING eCW1 ([facility]) 13 7-18 BLOOD UREA NITROGEN eCW1 ([facility]) 0.74 0.55-1.30 CREATININE FOR GFR eCW1 ([facility]) > 60.0 >45 GLOMERULAR FILTRATION RATE eCW 1 ([facility]) 103 98-107 CHLORIDE LEVEL eCW1 ([facility]) 3.7 3.5-5.1 POTASSIUM SERUM eCW1 ([facility]) 142 136-145 SODIUM LEVEL eCW1 ([facility]) 3.5 2.5-4.9 PHOSPHORUS LEVEL eCW1 ([facility]) 7.8 8.8-10.2 CALCIUM LEVEL eCW1 ([facility]) 34 21-32 CARBON DIOXIDE LEVEL eCW1 ([facility]) 3.3 3.2-5.2 ALBUMIN eCW1 ([facility]) ID Date Data Source MAGNESIUM LEVEL 05/12/2021 12:00:00 AM EDT eCW1 ([facility]) Name Value Range Interpretation Code Description Data Ally rce(s) Supporting Document(s) 1.9 1.8-2.4 MAGNESIUM LEVEL eCW1 ([facility]) ID Date Data Source [id number] 03/18/2021 06:11:00 AM EDT [facility] Name Value Range Interpretation Code Description Data Ally rce(s) Supporting Document(s) SARS coronavirus 2 RNA [Presence] in Res piratory specimen by [facility] with probe detection NEGATIVE [facility] This lab was ordered by [facility] a nd reported by [facility]. Procedure Social History Code Duration Value Status Description Data Source(s ) Smoking 07/25/2021 12:00:00 AM EDT Never Smoker completed Never S moker eCW1 ([facility]) Smoking 06/06/2021 12:00:00 AM EDT Patient has never smoked co mpleted Patient has never smoked [facility] ([facility]) Smoking 05/25/2021 12:00:00 AM EDT Never Smoker completed Never S moker eCW1 ([facility]) Smoking 05/25/2021 12:00:00 AM EDT Never Smoker completed Never S moker eCW1 ([facility]) Smoking 05/25/2021 12:00:00 AM EDT Never Smoker completed Never S moker eCW1 ([facility]) Smoking 05/25/2021 12:00:00 AM EDT Never Smoker completed Never S moker eCW1 ([facility]) Smoking 05/25/2021 12:00:00 AM EDT Never Smoker completed Never S moker eCW1 ([facility]) Smoking 05/25/2021 12:00:00 AM EDT Never Smoker completed Never S moker eCW1 ([facility]) Smoking 05/25/2021 12:00:00 AM EDT Never Smoker completed Never S moker eCW1 ([facility]) Smoking 05/25/2021 12:00:00 AM EDT Never Smoker completed Never S moker eCW1 ([facility]) Smoking 05/25/2021 12:00:00 AM EDT Never Smoker completed Never S moker eCW1 ([facility]) Smoking 05/24/2021 12:00:00 AM EDT Never Smoker completed Never S moker eCW1 ([facility]) Smoking 05/12/2021 12:00:00 AM EDT Never Smoker completed Never S moker eCW1 ([facility]) Smoking 05/12/2021 12:00:00 AM EDT Never Smoker completed Never S moker eCW1 ([facility]) Smoking 05/12/2021 12:00:00 AM EDT Never Smoker completed Never S moker eCW1 ([facility]) Smoking 03/11/2021 12:00:00 AM EDT Never Smoker completed Never S moker eCW1 ([facility]) Smoking 03/11/2021 12:00:00 AM EDT Never Smoker completed Never S moker eCW1 ([facility]) Smoking 03/11/2021 12:00:00 AM EDT Never Smoker completed Never S moker eCW1 ([facility]) Smoking 03/11/2021 12:00:00 AM EDT Never Smoker completed Never S moker eCW1 ([facility]) Smoking 11/26/2020 12:00:00 AM EST Never Smoker completed Never S moker eCW1 ([facility]) Smoking 11/26/2020 12:00:00 AM EST Never Smoker completed Never S moker eCW1 ([facility]) Smoking 11/26/2020 12:00:00 AM EST Never Smoker completed Never S moker eCW1 ([facility]) Smoking 11/26/2020 12:00:00 AM EST Never Smoker completed Never S moker eCW1 ([facility]) Smoking 11/26/2020 12:00:00 AM EST Never Smoker completed Never S moker eCW1 ([facility]) Smoking 11/26/2020 12:00:00 AM EST Never Smoker completed Never S moker eCW1 ([facility]) Vital Signs ID Date Data Source UNK Name Value Range Interpretation Code Description Data Source(s) Systolic blood pressure 128 mm[Hg] 128 mm[Hg] M [facility] ([facility]) Diastolic blood pressure 78 mm[Hg] 78 mm[Hg] [facility] ([facility]) Heart rate 92 /min 92 /min [facility] ([facility]) Oxygen saturation in Arterial blood by Pulse oximetry 983 % 983 % [facility] ([facility]) Body height 67 [in_i] 67 [in_i] [facility] ([facility]) 5'7" Body weight 388.00 [lb_av] 388.00 [lb_av] [facility]) Body mass index (BMI) [Ratio] 60.8 kg/m2 60.8 k g/m2 [facility] ([facility]) [place] body weight 135 [lb_av] 135 [lb_av] [facility] ([facility]) Body weight 175.997 kg 175.997 kg [facility] ([facility]) Body surface area Derived from formula 2.68 m2 2.68 m2 [facility] ([facility]) Body weight 388 [lb_av] 388 [lb_av] [facility] ([facility]) Body height 68 [in_i] 68 [in_i] [facility] ([facility]) Body mass index (BMI) [Ratio] 58.99 kg/m2 58.99 kg/m2 [facility] ([facility]) Heart rate 99 /min 99 /min eCW1 ([facility]) Respiratory rate 21 /min 21 /min eCW1 ([facility]) Body temperature 99.2 [degF] 99.2 [degF] eCW1 ( [facility]) Systolic blood pressure 150 mm[Hg] 150 mm[Hg] e CW1 ([facility]) Diastolic blood pressure 78 mm[Hg] 78 mm[Hg] eCW1 ([facility]) Body weight 450 [lb_av] 450 [lb_av] eCW1 ([facility]) Body weight 204.12 kg 204.12 kg eCW1 ([facility]) Body height 68 [in_i] 68 [in_i] eCW1 ([facility]) Body mass index (BMI) [Ratio] 68.41 kg/m2 68.41 kg/m2 eCW1 ([facility]) Heart rate 94 /min 94 /min eCW1 ([facility]) Respiratory rate 22 /min 22 /min eCW1 ([facility]) Body temperature 98.2 [degF] 98.2 [degF] eCW1 ( [facility]) Systolic blood pressure 128 mm[Hg] 128 mm[Hg] e CW1 ([facility]) Diastolic blood pressure 64 mm[Hg] 64 mm[Hg] eCW1 ([facility]) Body weight 450.0 [lb_av] 450.0 [lb_av] eCW1 ([facility]) Body weight 204.12 kg 204.12 kg eCW1 ([facility]) Body height 68 [in_i] 68 [in_i] eCW1 ([facility]) Body mass index (BMI) [Ratio] 68.41 kg/m2 68.41 kg/m2 eCW1 ([facility]) Heart rate 91 /min 91 /min eCW1 ([facility]) Respiratory rate 22 /min 22 /min eCW1 ([facility]) Body temperature 98.8 [degF] 98.8 [degF] eCW1 ( [facility]) Systolic blood pressure 138 mm[Hg] 138 mm[Hg] e CW1 ([facility]) Diastolic blood pressure 78 mm[Hg] 78 mm[Hg] eCW1 ([facility]) Body weight [lb_av] eCW1 ([facility]) Body height 68 [in_i] 68 [in_i] eCW1 ([facility]) Body mass index (BMI) [Ratio] 68.41 kg/m2 68.41 kg/m2 eCW1 ([facility]) Heart rate 106 /min 106 /min eCW1 ([facility]) Respiratory rate 20 /min 20 /min eCW1 ([facility]) Body temperature 97.7 [degF] 97.7 [degF] eCW1 ( [facility]) Systolic blood pressure 138 mm[Hg] 138 mm[Hg] e CW1 ([facility]) Diastolic blood pressure 84 mm[Hg] 84 mm[Hg] eCW1 ([facility]) Body weight 409.8 [lb_av] 409.8 [lb_av] eCW1 ([facility]) Body height 68 [in_i] 68 [in_i] eCW1 ([facility]) Body mass index (BMI) [Ratio] 62.30 kg/m2 62.30 kg/m2 W1 ([facility]) Heart rate 88 /min 88 /min eCW1 ([facility]) Respiratory rate 20 /min 20 /min eCW1 ([facility]) Body temperature 97.6 [degF] 97.6 [degF] eCW1 ( [facility]) Systolic blood pressure 142 mm[Hg] 142 mm[Hg] e CW1 ([facility]) Diastolic blood pressure 96 mm[Hg] 96 mm[Hg] eCW1 ([facility]) Patient Treatment Plan of Care Planned Activity Planned Date Details Description Data Source (s) gabapentin 100 MG Oral Capsule 05/25/2021 12:00:00 AM EDT eCW1 ([facility]) gabapentin 100 MG Oral Capsule 05/25/2021 12:00:00 AM EDT eCW1 ([facility]) gabapentin 100 MG Oral Capsule 05/25/2021 12:00:00 AM EDT eCW1 ([facility]) gabapentin 100 MG Oral Capsule 05/25/2021 12:00:00 AM EDT eCW1 ([facility]) gabapentin 100 MG Oral Capsule 05/25/2021 12:00:00 AM EDT eCW1 ([facility]) gabapentin 100 MG Oral Capsule 05/25/2021 12:00:00 AM EDT eCW1 ([facility]) gabapentin 100 MG Oral Capsule 05/25/2021 12:00:00 AM EDT eCW1 ([facility]) gabapentin 100 MG Oral Capsule 05/25/2021 12:00:00 AM EDT eCW1 ([facility]) gabapentin 100 MG Oral Capsule 05/25/2021 12:00:00 AM EDT eCW1 ([facility]) gabapentin 100 MG Oral Capsule 05/25/2021 12:00:00 AM EDT eCW1 ([facility]) Anoro Ellipta umeclidinium 62.5 mcg and vilanterol 25 mcg 04/04/2021 12:00:00 AM EDT eCW1 ([facility]) Anoro Ellipta umeclidinium 62.5 mcg and vilanterol 25 mcg 04/04/2021 12:00:00 AM EDT eCW1 ([facility]) Anoro Ellipta umeclidinium 62.5 mcg and vilanterol 25 mcg 04/04/2021 12:00:00 AM EDT eCW1 ([facility]) Anoro Ellipta umeclidinium 62.5 mcg and vilanterol 25 mcg 04/04/2021 12:00:00 AM EDT eCW1 ([facility]) Anoro Ellipta umeclidinium 62.5 mcg and vilanterol 25 mcg 04/04/2021 12:00:00 AM EDT eCW1 ([facility]) Anoro Ellipta umeclidinium 62.5 mcg and vilanterol 25 mcg 04/04/2021 12:00:00 AM EDT eCW1 ([facility]) Anoro Ellipta umeclidinium 62.5 mcg and vilanterol 25 mcg 04/04/2021 12:00:00 AM EDT eCW1 ([facility]) Anoro Ellipta umeclidinium 62.5 mcg and vilanterol 25 mcg 04/04/2021 12:00:00 AM EDT eCW1 ([facility]) Anoro Ellipta umeclidinium 62.5 mcg and vilanterol 25 mcg 04/04/2021 12:00:00 AM EDT eCW1 ([facility]) Anoro Ellipta umeclidinium 62.5 mcg and vilanterol 25 mcg 04/04/2021 12:00:00 AM EDT eCW1 ([facility]) Anoro Ellipta umeclidinium 62.5 mcg and vilanterol 25 mcg 04/04/2021 12:00:00 AM EDT eCW1 ([facility]) Anoro Ellipta umeclidinium 62.5 mcg and vilanterol 25 mcg 04/04/2021 12:00:00 AM EDT eCW1 ([facility]) buspirone hydrochloride 7.5 MG Oral Tablet 03/11/2021 12:00:00 AM E DT eCW1 ([facility]) 24 HR venlafaxine 37.5 MG Extended Release Oral Capsul e 03/11/2021 12:00:00 AM EDT eCW1 ([facility]) Trazodone Hydrochloride 50 MG Oral Tablet 03/11/2021 12:00:00 AM ED T eCW1 ([facility]) buspirone hydrochloride 7.5 MG Oral Tablet 03/11/2021 12:00:00 AM E DT eCW1 ([facility]) 24 HR venlafaxine 37.5 MG Extended Release Oral Capsul e 03/11/2021 12:00:00 AM EDT eCW1 ([facility]) Trazodone Hydrochloride 50 MG Oral Tablet 03/11/2021 12:00:00 AM ED T eCW1 ([facility]) buspirone hydrochloride 7.5 MG Oral Tablet 03/11/2021 12:00:00 AM E DT eCW1 ([facility]) 24 HR venlafaxine 37.5 MG Extended Release Oral Capsul e 03/11/2021 12:00:00 AM EDT eCW1 ([facility]) Trazodone Hydrochloride 50 MG Oral Tablet 03/11/2021 12:00:00 AM ED T eCW1 ([facility]) buspirone hydrochloride 7.5 MG Oral Tablet 03/11/2021 12:00:00 AM E DT eCW1 ([facility]) 24 HR venlafaxine 37.5 MG Extended Release Oral Capsul e 03/11/2021 12:00:00 AM EDT eCW1 ([facility]) Trazodone Hydrochloride 50 MG Oral Tablet 03/11/2021 12:00:00 AM ED T eCW1 ([facility]) CPAP mask 12/12/2020 12:00:00 AM EST e CW1 ([facility]) CPAP mask 12/12/2020 12:00:00 AM EST e CW1 ([facility]) rivaroxaban 20 MG Oral Tablet [Xarelto] 11/26/2020 12:00:00 AM EST eCW1 ([facility]) rivaroxaban 20 MG Oral Tablet [Xarelto] 11/26/2020 12:00:00 AM EST eCW1 ([facility]) rivaroxaban 20 MG Oral Tablet [Xarelto] 11/26/2020 12:00:00 AM EST eCW1 ([facility]) rivaroxaban 20 MG Oral Tablet [Xarelto] 11/26/2020 12:00:00 AM EST eCW1 ([facility]) rivaroxaban 20 MG Oral Tablet [Xarelto] 11/26/2020 12:00:00 AM EST eCW1 ([facility]) rivaroxaban 20 MG Oral Tablet [Xarelto] 11/26/2020 12:00:00 AM EST eCW1 ([facility]) rivaroxaban 20 MG Oral Tablet [Xarelto] 11/26/2020 12:00:00 AM EST eCW1 ([facility]) rivaroxaban 20 MG Oral Tablet [Xarelto] 11/26/2020 12:00:00 AM EST eCW1 ([facility]) rivaroxaban 20 MG Oral Tablet [Xarelto] 11/26/2020 12:00:00 AM EST eCW1 ([facility]) Fluoxetine 20 MG Oral Capsule 11/26/2020 12:00:00 AM EST eCW1 ([facility]) rivaroxaban 20 MG Oral Tablet [Xarelto] 11/26/2020 12:00:00 AM EST eCW1 ([facility]) Fluoxetine 20 MG Oral Capsule 11/26/2020 12:00:00 AM EST eCW1 ([facility]) rivaroxaban 20 MG Oral Tablet [Xarelto] 11/26/2020 12:00:00 AM EST eCW1 ([facility]) Fluoxetine 20 MG Oral Capsule 11/26/2020 12:00:00 AM EST eCW1 ([facility]) rivaroxaban 20 MG Oral Tablet [Xarelto] 11/26/2020 12:00:00 AM EST eCW1 ([facility]) Fluoxetine 20 MG Oral Capsule 11/26/2020 12:00:00 AM EST eCW1 ([facility]) rivaroxaban 20 MG Oral Tablet [Xarelto] 11/26/2020 12:00:00 AM EST eCW1 ([facility]) rivaroxaban 20 MG Oral Tablet [Xarelto] 11/26/2020 12:00:00 AM EST eCW1 ([facility]) rivaroxaban 20 MG Oral Tablet [Xarelto] 11/26/2020 12:00:00 AM EST eCW1 ([facility]) Fluoxetine 20 MG Oral Capsule 11/26/2020 12:00:00 AM EST eCW1 ([facility]) rivaroxaban 20 MG Oral Tablet [Xarelto] 11/26/2020 12:00:00 AM EST eCW1 ([facility]) Fluoxetine 20 MG Oral Capsule 11/26/2020 12:00:00 AM EST eCW1 ([facility]) rivaroxaban 20 MG Oral Tablet [Xarelto] 11/26/2020 12:00:00 AM EST eCW1 ([facility])
--- NOTE | 2021-08-19 18:52 | REP ---
INDICATION: CHEST PAIN. COMPARISON: Comparison chest x-ray April 21, 2021. TECHNIQUE: Sitting AP portable chest radiograph. FINDINGS: There is mild to moderate cardiomegaly. Pulmonary vasculature is cephalized. The pleural angles are sharp. No focal infiltrate is seen. There is linear platelike atelectasis versus fibrosis at the left base along the left heart border. No acute bony abnormality. IMPRESSION: Cardiomegaly and cephalization of the pulmonary vasculature. Platelike atelectasis versus scarring left base. <Electronically signed by Austin Sweet > 08/19/21 [id number]
[2021-08-19 19:18] LABS: RSV AMPLIFICATION NEGATIVE (NEGATIVE)
[2021-08-19] MEDS: busPIRone 5 MG TAB PO SCH (21:00)
[2021-08-19] MEDS ORDERED: hydrOXYzine 25 MG TAB PO SCH (21:00)
--- NOTE | 2021-08-19 21:43 | HPEPDOC ---
[facility] Medical History & Physical Date of Admission Aug 19, 2021 Date of Service: Aug 19, 2021 History and Physical CHIEF COMPLAINT: Low hgb on routine labwork. HISTORY OF PRESENT ILLNESS: Mrs. Quinonez is a pleasant 61-year-old female with a past medical history of HFpEF, CHELA, OHS (3L chronic O2 at home as baseline, BIPAP, PE secondary to protein C deficiency, class III obesity, prolonged hospitalization and ICU stay with intubation due to acute on chronic hypoxemic and hypercapnic respiratory failure in April 2021 as well as chronic vaginal bleeding presented to the ER after she was informed by her primary care doctor that her hemoglobin was below 7. She had previously been evaluated by gynecology service in March 2021 for heavy postmenopausal bleeding resulting in anemia requiring 2 units of packed red blood cells. She underwent an endometrial biopsy showing predominantly fibrin no hemorrhagic debris admixed w ith endocervical mucosa, negative for malignancy. She was started on 10 mg of Provera twice daily and plan for follow-up with gynecology as outpatient. She has been plan for possible hysterectomy or hysteroscopy with dilation and curettage however given her body habitus and severe CHELA/OHS general anesthesia may be precluding factor. She currently has follow-up with women's wellness and breast care in the next 2 weeks. She states that since starting Provera she has noted a significant improvement in her bleeding and has not seen a tremendous increase in frequency or quantity of bleeding. Certainly Xarelto exacerbates her bleeding. She denies any chest pain palpitations shortness of breath nausea vomiting diarrhea or severe fatigue. 2 units of blood red blood cells have been ordered in the ER. She will be admitted for observation under the hospitalist service PAST MEDICAL HISTORY: Super morbid obesity. CHELA/OHS, O2 dependent, on 3L NC at home. On Bipap, does not know her settings. Followed by Dr. Lozano. Hypertension. Diastolic heart failure with preserved systolic function, ejection fraction 60- 65%. Pulmonary embolism. Protein C deficiency. Depression. Seasonal allergies PAST SURGICAL HISTORY: Status post 1984 SOCIAL HISTORY: Patient is a non smoker. Denies ETOH use. Lives in a home and ambulates with a scooter or walker. FAMILY HISTORY: Father: alive and 78 with bipolar depression and hypertension Mother: Age 79 with depression Sibling: Bipolar disorder and hypertension ALLERGIES: Please see below. REVIEW OF SYSTEMS: 10 point ROS conducted, relevant findings are noted in the HPI. HOME MEDICATIONS: Please see below. PHYSICAL EXAMINATION: VITAL SIGNS: please see below General: NAD, comfortable HEENT: PERRLA, EOMI, sclerae clear Neck: supple, normal ROM, no JVD Respiratory: lungs CTAB, no wheeze, no rales, no crackles, on liters via nasal cannula as per her baseline. CVS: RRR, normal S1, S2, no murmurs Abdo: soft, no masses, no hepatosplenomegaly, BS+, no rebound tenderness Extremities: no edema, pulses 2+ MSK: no joint deformities, normal ROM Neuro: no focal neuro deficits, moving all 4 extremities, CN2-12 intact. Strength 5/5 in all 4 extremities. No nystagmus. Psych: calm, cooperative, AAO x 3 LABORATORY DATA: See below. IMAGING: CXR (08/19/21): Cardiomegaly and cephalization of the pulmonary vasculature. Platelike atelectasis versus scarring left base. MICROBIOLOGY: Please see below. ASSESSMENT: Mrs. Quinonez is a pleasant 61-year-old female with a past medical history of HFpEF, CHELA, OHS (3L chronic O2 at home as baseline, BIPAP, PE secondary to protein C deficiency, class III obesity, prolonged hospitalization and ICU stay with intubation due to acute on chronic hypoxemic and hypercapnic respiratory failure in April 2021 as well as chronic vaginal bleeding presented to the ER after she was informed by her primary care doctor that her hemoglobin was below 7. Bleeding has been mild, but persistent. has improved since provera started. has reliable follow up with [facility] and her PCP. Admit as obs for blood transfusion. . PLAN: #Dysfunctional uterine bleeding/post-menopausal bleeding - has fu with [facility] - chronic DUB, much improved since starting provera in 03/2021 - reports that she has been instructed to continue provera until next f/u with [facility] - bleeding is not heavy, but persistent. Certainly this is worsened by use of Xarelto - Hgb 7.0 on arrival - ordered 2 units pRBC by ER - repeat CBC after transfusion - xarelto held for now - c/w provera 10 mg PO BID. #hx of HFpEF - continue with home dose of lasix 40 mg daily - c/w metoprolol tartrate 25 mg PO TID #Hx of CHELA/OHS - being followed by Dr. Lozano - on 3L O2 NC at home - on Bipap at night. Does not know settings #Hx of PE 2/2 Protein C Deficiency - on xarelto 20 mg qhs - hold at this time in setting of anemia 2/2 DUB - consider to resume on DC if hgb stable, and has good f/u with [employer]. #Class 3 Obesity - BMI 53 - complicates care IDDM - on metformin, held - ISS and FSBS AC and HS #Depression - c/w buspar and venlafaxine #GERD - c/w pantoprazole DVT ppx: xarelto held at this time, can resume once hgb noted to be stable. SCDs. TEDs for now. Dispo: admitted as observation. Pending clinical improvement. Vital Signs Vital Signs Date Time Temp Pulse Resp B/P (MAP) Pulse Ox O2 Delivery O2 Flow Rate FiO2 08/19/21 21:30 108 18 155/73 (100) 99 Nasal Cannula 2.0 08/19/21 19:19 98.6 Laboratory Data Labs 24H Laboratory Tests 2 08/19/21 18:02: Immature Granulocyte % (Auto) 0.7, Neutrophils (%) (Auto) 84.9H, Lymphocytes (%) (Auto) 8.7L, Monocytes (%) (Auto) 4.7, Eosinophils (%) (Auto) 0.8, Basophils (%) (Auto) 0.2, Neutrophils # (Auto) 12.0H, Lymphocytes # (Auto) 1.2L, Monocytes # (Auto) 0.7, Eosinophils # (Auto) 0.1, Basophils # (Auto) 0.0, Nucleated Red Bl ood Cells % (auto) 0.1H, Prothrombin Time 16.5H, Prothromb Time International Ratio 1.28, Activated Partial Thromboplast Time 32.2, Anion Gap 5L, Glomerular Filtration Rate 58.0, Calcium Level 8.5L, Total Bilirubin 0.5, Direct Bilirubin 0.1, Aspartate Amino Transf (AST/SGOT) 8, Alanine Aminotransferase (ALT/SGPT) 16, Alkaline Phosphatase 45, Total Creatine Kinase 28, Creatine Kinase MB < 1.0, Creatine Kinase MB Relative Index 3.57, Troponin I < 0.02, Total Protein 7.9, Albumin 3.6, Albumin/Globulin Ratio 0.8L, Lipase 211, Thyroid Stimulating Hormone (TSH) 0.486 08/19/21 18:30: Coronavirus (COVID-19)(PCR) NEGATIVE, Influenza Type A (RT-PCR) NEGATIVE, Influenza Type B (RT-PCR) NEGATIVE, Respiratory Syncytial Virus (PCR) NEGATIVE CBC/BMP Laboratory Tests 08/19/21 18:02 Home Medications Scheduled Buspirone HCl (Buspirone HCl) 7.5 Mg Tablet, 7.5 MG PO BID Furosemide (Furosemide) 40 Mg Tablet, 40 MG PO DAILY Hydroxyzine HCl (Hydroxyzine HCl) 25 Mg Tablet, 25 MG PO QHS Magnesium Oxide (Magnesium Oxide) 400 Mg Tablet, 400 MG PO BID Medroxyprogesterone Acetate (Medroxyprogesterone Acetate) 10 Mg Tablet, 10 MG PO BID Metformin HCl (Metformin HCl) 500 Mg Tablet, 500 MG PO BID Metoprolol Tartrate (Metoprolol Tartrate) 25 Mg Tablet, 25 MG PO TID Montelukast Sodium (Montelukast Sodium) 10 Mg Tablet, 10 MG PO QPM TAKES AFTER DINNER Pantoprazole Sodium (Pantoprazole Sodium) 40 Mg Tablet.dr, 40 MG PO DAILY Rivaroxaban (Xarelto) 20 Mg Tablet, 20 MG PO QPM TAKES AFTER DINNER Umeclidinium Brm/Vilanterol Tr (Anoro Ellipta 62.5-25 Mcg INH) 1 Each Blst.w.dev, 1 PUFF PO DAILY Venlafaxine HCl (Venlafaxine HCl ER) 37.5 Mg Cap.er.24h, 37.5 MG PO DAILY Scheduled PRN Acetaminophen (Tylenol Arthritis) 650 Mg Tablet.er, 1,300 MG PO TID PRN for PAIN LEVEL 1-4 Albuterol Sulfate (Proair Hfa) 8.5 Gm Hfa.aer.ad, 2 PUFF INH Q4H PRN for SOB/WHEEZING Fluticasone Propionate (Flonase Allergy Relief) 9.9 Ml Brackney.susp, 1 SPRAY NA DAILY PRN for NASAL CONGESTION Allergies Coded Allergies: No Known Allergies (Verified Allergy, Unknown, 03/18/21) A-FIB/CHADSVASC A-FIB History Current/History of A-Fib/PAF?: No Current PO Anticoag Therapy: Yes GENNA EMMANUEL MD Aug 19, 2021 21:42
[2021-08-19] MEDS ORDERED: MOM 30ML SUSPENSION UDC PO PRN (21:45)
[2021-08-19] MEDS ORDERED: MAALOX 30 ML SUSP *UDC PO PRN (21:45)
[2021-08-19] MEDS ORDERED: ACETAMINOPHEN TAB 650MG DOSE (2X325MG) PO PRN (21:45)
[2021-08-19] MEDS ORDERED: MAGN400T2 PO (22:12)
[2021-08-19] MEDS ORDERED: MEDR10TA PO (22:12)
--- OUTSIDE RECORDS SUMMARY | 2021-08-19 22:18 | CCD ---
Author Author [facility] Organization [facility] Address Unknown Phone Unavailable Care Team Providers Care Retirement Administrator Name Role Phone Haley Bailey MD Unavailable [...] Chad Warner MD Unavailable Unavailable Rodríguez, Chad Wanrer MD Unavailable Unavailable Rodríguez, Chad Warner MD [...] is protected by Article 27-F of the [facility] Public Health law. If you continue you may have access to information: Regarding HIV / AIDS; Provided by facilities licensed or operated by the [facility] Office of Mental Health; or Provided by the [facility] Office for People With Developmental Disabilities. If such information is present, then the following [facility] mandated warning applies: This information has been [...] law may result in a fine or shelter sentence or both. A general authorization for the release of medical or other information is NOT sufficient authorization for further disc losure. Encounters Encounter Providers Location Date Indications Data Source(s ) Unknown [address] [facility] [id number] 08/09/2021 12:00:00 AM EDT [facility] Unknown [address] [facility] [address] 06/15/2021 12:00:00 AM EDT [facility]1 [facility]) Unknown [address] [facility] [place] [address] 06/14/2021 12:00:00 AM EDT [facility]CW1 [facility] Unknown [address] [facility] [place] [address] 05/28/2021 12:00:00 AM EDT [facility]CW1 [facility]) Unknown [address] [facility] [place] [address] 05/26/2021 12:00:00 AM EDT [facility] Outpatient [address] [facility] [place] [address] 05/25/2021 12:00:00 AM EDT [facility]CW1 [facility]) Unknown [address] [facility] [place] [address] 05/25/2021 12:00:00 AM EDT [facility]CW1 [facility]) Outpatient [address] [facility] [address] 05/24/2021 12:00:00 AM EDT eCW1 ([facility]) [place] [address] [facility] [place] [address] 05/18/2021 12:00:00 AM EDT [facility] [place] [address] [facility] [place] [address] 05/18/2021 12:00:00 AM EDT [facility] [place] [address] [facility] [place] [address] 05/16/2021 12:00:00 AM EDT [facility] [place] [address] [facility] [place] [address] 05/12/2021 12:00:00 AM EDT [facility] [place] [address] [facility] [place] [address] 05/12/2021 12:00:00 AM EDT [facility] [place] [address] [facility] [place] [address] 05/09/2021 12:00:00 AM EDT [facility] Outpatient Attender: Haley Torres/Seale/Demarco/Oni ndl 04/23/2021 01:23:00 AM EDT MEDENT ([facility]) Outpatient Attender: Haley Torres/Seale/Demarco/Oni ndl 04/22/2021 01:23:00 AM EDT MEDENT ([facility]) Outpatient Attender: Jaycob Marquez/Seale/Demarco/Oni ndl 04/21/2021 01:23:00 AM EDT MEDENT ([facility]) Outpatient Attender: Jaycob Marquez/Seale/Demarco/Oni ndl 04/20/2021 01:23:00 AM EDT MEDENT ([facility]) Outpatient Attender: Jaycob Marquez/Seale/Demarco/Oni ndl 04/19/2021 01:23:00 AM EDT MEDENT ([facility]) Outpatient Attender: Jaycob Marquez/Seale/Demarco/Oni ndl 04/18/2021 01:23:00 AM EDT MEDENT ([facility]) Outpatient Attender: Jaycob Marquez/Seale/Demarco/Oni ndl 04/17/2021 01:23:00 AM EDT MEDENT ([facility]) Outpatient Attender: Jaycob Marquez/Seale/Demarco/Oni ndl 04/16/2021 01:23:00 AM EDT MEDENT ([facility]) Outpatient Attender: Jaycob Marquez/Seale/Demarco/Oni ndl 04/15/2021 01:23:00 AM EDT MED[facility] ([facility]) Outpatient Attender: Timmy Torres/Seale/Demarco/R eindl 04/14/2021 01:23:00 AM EDT [facility] ([facility]) Outpatient Attender: Timmy Torres/Seale/Demarco/R eindl 04/13/2021 01:23:00 AM EDT [facility] ([facility]) Outpatient Attender: Timmy Torres/Misa/Demarco/R eindl 04/12/2021 01:23:00 AM EDT MEDENT ([facility]) Outpatient Attender: Timmy Torres/Misa/Demarco/R eindl 04/11/2021 01:23:00 AM EDT MED[facility] ([facility]) Outpatient Attender: Timmy Torres/Misa/Demarco/R eindl 04/10/2021 01:23:00 AM EDT [facility] ([facility]) Outpatient Attender: Timmy Torres/Misa/Demarco/R eindl 04/09/2021 01:23:00 AM EDT MEDENT ([facility]) Unknown [address] [place], [place] [address] [address] 04/05/2021 12:00:00 AM EDT eCW1 ([facility]) Outpatient Attender: Haley Torres/Seale/Demarco/Oni ndl 03/26/2021 01:23:00 AM EDT [facility] ([facility] ) Outpatient Attender: Haley Torres/Seale/Demarco/Oni ndl 03/25/2021 01:23:00 AM EDT [facility] ([facility] ) Outpatient Attender: Haley Torres/Seale/Demarco/Oni ndl 03/24/2021 01:23:00 AM EDT [facility] ([facility] ) Outpatient Attender: Haley Torres/Seale/Demarco/Oni ndl 03/23/2021 01:23:00 AM EDT [facility] ([facility] Outpatient Attender: Haley Torres/Seale/Demarco/Oni ndl 03/22/2021 01:23:00 AM EDT [facility] ([facility] [place] [address] [facility] [place] [address] 03/14/2021 12:00:00 AM EDT eCW1 ([facility]) [place]patient [address] [facility] [place] [address] 03/11/2021 12:00:00 AM EDT eCW1 ([facility]) Unknown [address] [facility] [place] [address] 02/16/2021 12:00:00 AM EDT eCW1 ([facility]) [place] [address] [facility] [place] [address] 12/02/2020 12:00:00 AM EST eCW1 ([facility]) [place] [address] [facility] [place] [address] 11/29/2020 12:00:00 AM EST eCW1 ([facility]) [place] [address] [facility] [place] [address] 11/29/2020 12:00:00 AM EST eCW1 ([facility]) Unknown [address] [facility] [place] [address] 11/29/2020 12:00:00 AM EST eCW1 ([facility]) [place]patient [address] [facility] [place] [address] 11/26/2020 12:00:00 AM EST eCW1 ([facility]) Unknown [address] [facility] [place] [address] 11/26/2020 12:00:00 AM EST eCW1 ([facility]) [place] [address] [facility] [place] [address] 11/19/2020 12:00:00 AM EST eCW1 ([facility]) Unknown [address] [facility] [place] [address] 11/19/2020 12:00:00 AM EST eCW1 ([facility]) Unknown [address] [facility] [place] [address] 11/16/2020 12:00:00 AM EST eCW1 ([facility]) Unknown [address] [facility] [place] [address] 11/12/2020 12:00:00 AM EST eCW1 ([facility]) Unknown [address] [facility] [place] [address] 10/25/2020 12:00:00 AM EST eCW1 ([facility]) [place] [address] [facility] [place] [address] 10/23/2020 12:00:00 AM EST eCW1 ([facility]) [place] [address] [facility] [place] [address] 10/21/2020 12:00:00 AM EST eCW1 ([facility]) Unknown [address] [facility] [place] [address] 10/04/2020 12:00:00 AM EST eCW1 ([facility]) [place] [address] [facility] [place] [address] 08/11/2020 12:00:00 AM EST eCW1 ([facility]) [place] [address] [facility] [place] [address] 08/03/2020 12:00:00 AM EDT eCW1 ([facility]) Unknown [address] [facility] [place] [address] 07/27/2020 12:00:00 AM EDT eCW1 ([facility]) Unknown [address] [facility] [place] [address] 06/29/2020 12:00:00 AM EDT eCW1 ([facility]) Unknown [address] [facility] [place] [address] 06/29/2020 12:00:00 AM EDT eCW1 ([facility]) Unknown [address] [facility] [place] [address] 06/29/2020 12:00:00 AM EDT eCW1 ([facility]) Immunizations Vaccine Date Status Description Data Source(s) COVID-19 VACCINE Moderna 02/07/2021 12:00:00 AM EDT completed [facility] Vaccine Series Complete: YESThis Data wa s Submitted to [facility] Via [employer]. COVID-19 VACC,MRNA(MODERNA)/PF 02/07/2021 12:00:00 AM EDT completed [facility] COVID-19 VACCINE Moderna 01/07/2021 12:00:00 AM EDT completed [facility] Vaccine Series Complete: NOThis Data was Submitted to [facility] Via [employer]. COVID-19 VACCINE, MRNA-1273, LNP-S (MODERNA)/PF 01/07/2021 1 [...] MOUTH TWICE A DAY SOLD: 07/23/2021 [facility] pantoprazole 40 MG Delayed Release Oral Tablet PANTOPRAZOLE SODIUM 05/28/2021 12:00:00 AM EDT tablet,delayed release (DR/EC) 30 T NARENDRA ONE TABLET BY MOUTH EVERY DAY TAKE ONE TABLET BY MOUTH EVERY DAY SOLD: 07/23/2021 [facility] gabapentin 100 MG Oral Capsule Gabapentin 100 MG Gabapentin 100 MG 05/25/2021 12:00:00 AM EDT 1.0 {capsule} active G abapentin 100 MG eCW1 ([facility]) 100 mg 05/25/2021 12:00:00 AM EDT capsule 90 TAKE ONE CAPSULE BY MOUTH THREE TIMES A DAY TAKE ONE CAPSULE BY MOUTH THREE TIMES A DAY SOLD: 06/22/2021 [facility] gabapentin 100 MG Oral Capsule Gabapentin 100 MG Gabapentin 100 MG 05/25/2021 12:00:00 AM EDT 1.0 {capsule} active G abapentin 100 MG eCW1 ([facility]) 90 mcg/actuation 05/25/2021 12:00:00 AM [...] THREE TIMES A DAY SOLD: 07/20/2021 [facility] gab[facility] 100 MG Oral Capsule Gabapentin 100 MG Gabapentin 100 MG 05/25/2021 12:00:00 AM EDT 1.0 {capsule} active G abapentin 100 MG eCW1 ([facility]) gabapentin 100 MG Oral Capsule Gabapentin 100 MG Gabapentin 100 MG 05/25/2021 12:00:00 AM EDT 1.0 {capsule} active G abapentin 100 MG eCW1 ([facility]) 90 mcg/actuation 05/25/2021 12:00:00 AM [...] {capsule} active G abapentin 100 MG eCW1 ([facility]) gabapentin 100 MG Oral Capsule Gabapentin 100 MG Gabapentin 100 MG 05/25/2021 12:00:00 AM EDT 1.0 {capsule} active G abapentin 100 MG eCW1 ([facility]) 90 mcg/actuation 05/25/2021 12:00:00 AM [...] {capsule} active G abapentin 100 MG eCW1 ([facility]) 50 mcg/actuation 05/25/2021 12:00:00 AM [...] {capsule} active G abapentin 100 MG eCW1 ([facility]) gabapentin 100 MG Oral Capsule Gabapentin 100 MG Gabapentin 100 MG 05/25/2021 12:00:00 AM EDT 1.0 {capsule} active G abapentin 100 MG eCW1 ([facility]) 30 ACTUAT umeclidinium 0.0625 MG/ACTUAT [...] {capsule} active G abapentin 100 MG eCW1 ([facility]) 10 mg 05/12/2021 12:00:00 AM [...] ACTUAT Albuterol 0.1 MG/ACTUAT / Ipr atropium Knapp 0.02 MG/ACTUAT Metered Dose Inhaler [Combivent] 20-100 [...] 62.5 mcg and vilanterol 25 mcg eCW1 ([facility]) Anoro Ellipta umeclidinium 62.5 mcg and vilanterol 25 mcg UN 04/04/2021 12:00:00 AM EDT active Anoro Ellipta umeclidinium 62.5 mcg and vilanterol 25 mcg eCW1 ([facility]) Anoro Ellipta umeclidinium 62.5 mcg and vilanterol 25 mcg UN 04/04/2021 12:00:00 AM EDT active Anoro Ellipta umeclidinium 62.5 mcg and vilanterol 25 mcg eCW1 ([facility]) Anoro Ellipta umeclidinium 62.5 mcg and vilanterol 25 mcg UN 04/04/2021 12:00:00 AM EDT active Anoro Ellipta umeclidinium 62.5 mcg and vilanterol 25 mcg eCW1 ([facility]) Anoro Ellipta umeclidinium 62.5 mcg and vilanterol 25 mcg UN K 04/04/2021 12:00:00 AM EDT active Anoro Ellipta umeclidinium 62.5 mcg and vilanterol 25 mcg eCW1 ([facility]) Anoro Ellipta umeclidinium 62.5 mcg and vilanterol 25 mcg UN K 04/04/2021 12:00:00 AM EDT active Anoro Ellipta umeclidinium 62.5 mcg and vilanterol 25 mcg eCW1 ([facility]) Anoro Ellipta umeclidinium 62.5 mcg and vilanterol 25 mcg UN 04/04/2021 12:00:00 AM EDT active Anoro Ellipta umeclidinium 62.5 mcg and vilanterol 25 mcg eCW1 ([facility]) Anoro Ellipta umeclidinium 62.5 mcg and vilanterol 25 mcg UN K 04/04/2021 12:00:00 AM EDT active Anoro Ellipta umeclidinium 62.5 mcg and vilanterol 25 mcg eCW1 ([facility]) 20 mg 04/04/2021 12:00:00 AM EDT tablet 30 TAKE ONE TABLET BY MOUTH EVERY DAY TAKE ONE TABLET BY MOUTH EVERY DAY SOLD: 04/04/2021 [facility] Anoro Ellipta umeclidinium 62.5 mcg and vilanterol 25 mcg [facility] 04/04/2021 12:00:00 AM EDT active Anoro Ellipta umeclidinium 62.5 mcg and vilanterol 25 mcg eCW1 ([facility]) Anoro Ellipta umeclidinium 62.5 mcg and vilanterol 25 mcg [facility] 04/04/2021 12:00:00 AM EDT active Anoro Ellipta umeclidinium 62.5 mcg and vilanterol 25 mcg eCW1 ([facility]) Anoro Ellipta umeclidinium 62.5 mcg and vilanterol 25 mcg [facility] 04/04/2021 12:00:00 AM EDT active Anoro Ellipta umeclidinium 62.5 mcg and vilanterol 25 mcg eCW1 ([facility]) Anoro Ellipta umeclidinium 62.5 mcg and vilanterol 25 mcg [facility] 04/04/2021 12:00:00 AM EDT active Anoro Ellipta umeclidinium 62.5 mcg and vilanterol 25 mcg eCW1 ([facility]) 100,000 unit/gram 04/04/2021 12:00:00 AM EDT powder 60 TOPICALLY TWO TIMES A DAY FOR 10 DAYS TOPICALLY TWO TIMES A DAY FOR 10 DAYS SOLD: 04/04/2021 [facility] Anoro Ellipta umeclidinium 62.5 mcg and vilanterol 25 mcg [facility] 04/04/2021 12:00:00 AM EDT active Anoro Ellipta umeclidinium 62.5 mcg and vilanterol 25 mcg eCW1 ([facility]) Anoro Ellipta umeclidinium 62.5 mcg and vilanterol 25 mcg [facility] 04/04/2021 12:00:00 AM EDT active Anoro Ellipta umeclidinium 62.5 mcg and vilanterol 25 mcg eCW1 ([facility]) Anoro Ellipta umeclidinium 62.5 mcg and vilanterol 25 mcg UN K 04/04/2021 12:00:00 AM EDT active Anoro Ellipta umeclidinium 62.5 mcg and vilanterol 25 mcg eCW1 ([facility]) Anoro Ellipta umeclidinium 62.5 mcg and vilanterol 25 mcg UN K 04/04/2021 12:00:00 AM EDT active Anoro Ellipta umeclidinium 62.5 mcg and vilanterol 25 mcg eCW1 ([facility]) 37.5 mg 03/11/2021 12:00:00 AM [...] activ e busPIRone HCl 7.5 MG eCW1 ([facility]) buspirone hydrochloride 7.5 MG Oral Tablet busPIRone H Cl 7.5 MG busPIRone HCl 7.5 MG 03/11/2021 12:00:00 AM EDT 1.0 {tablet} activ e busPIRone HCl 7.5 MG eCW1 ([facility]) 7.5 mg 03/11/2021 12:00:00 AM EDT tablet 60 TAKE ONE TABLET BY MOUTH TWICE A DAY NEEDED TAKE ONE TABLET BY MOUTH TWICE A DAY NEEDED SOLD: 021 [facility] Trazodone Hydrochloride 50 MG Oral Tablet traZODone HC l 50 MG traZODone HCl 50 MG 03/11/2021 12:00:00 AM EDT active traZODone HCl 50 MG eCW1 ([facility]) Trazodone Hydrochloride 50 MG Oral Tablet traZODone HC l 50 MG traZODone HCl 50 MG 03/11/2021 12:00:00 AM EDT active traZODone HCl 50 MG eCW1 ([facility]) buspirone hydrochloride 7.5 MG Oral Tablet busPIRone H Cl 7.5 MG busPIRone HCl 7.5 MG 03/11/2021 12:00:00 AM EDT 1.0 {tablet} activ e busPIRone HCl 7.5 MG eCW1 ([facility]) 7.5 mg 03/11/2021 12:00:00 AM EDT tablet 60 TAKE ONE TABLET BY MOUTH TWICE A DAY NEEDED TAKE ONE TABLET BY MOUTH TWICE A DAY NEEDED SOLD: 021 [facility] 24 HR venlafaxine 37.5 MG Extended Relea se Oral Capsule Venlafaxine HCl ER 37.5 MG Venlafaxine HCl ER 37.5 MG 03/11/2021 12:00:00 AM EDT 1.0 {capsule_with_food} active Venlafaxine HCl ER 37.5 MG eCW1 ([facility]) 24 HR venlafaxine 37.5 MG Extended Relea se Oral Capsule Venlafaxine HCl ER 37.5 MG Venlafaxine HCl ER 37.5 MG 03/11/2021 12:00:00 AM EDT 1.0 {capsule_with_food} active Venlafaxine HCl ER 37.5 MG eCW1 ([facility]) 24 HR venlafaxine 37.5 MG Extended Relea se Oral Capsule Venlafaxine HCl ER 37.5 MG Venlafaxine HCl ER 37.5 MG 03/11/2021 12:00:00 AM EDT 1.0 {capsule_with_food} active Venlafaxine HCl ER 37.5 MG eCW1 ([facility]) Trazodone Hydrochloride 50 MG Oral Tablet traZODone HC l 50 MG traZODone HCl 50 MG 03/11/2021 12:00:00 AM EDT active traZODone HCl 50 MG eCW1 ([facility]) Trazodone Hydrochloride 50 MG Oral Tablet TraZODone HC l 50 MG TraZODone HCl 50 MG 03/11/2021 12:00:00 AM EDT active TraZODone HCl 50 MG eCW1 ([facility]) buspirone hydrochloride 7.5 MG Oral Tablet BusPIRone H Cl 7.5 MG BusPIRone HCl 7.5 MG 03/11/2021 12:00:00 AM EDT 1.0 {tablet} activ e BusPIRone HCl 7.5 MG eCW1 ([facility]) 50 mg 03/11/2021 12:00:00 AM [...] active Venlafaxine HCl ER 37.5 MG eCW1 ([facility]) CPAP mask UNK 12/12/2020 12:00:00 AM EST active CPAP mask eCW1 ([facility]) CPAP mask UNK 12/12/2020 12:00:00 AM EST active CPAP mask eCW1 ([facility]) CPAP mask UNK 12/12/2020 12:00:00 AM EST active CPAP mask eCW1 ([facility]) CPAP mask UNK 12/12/2020 12:00:00 AM EST active CPAP mask eCW1 ([facility]) CPAP mask UNK 12/12/2020 12:00:00 AM EST active CPAP mask eCW1 ([facility]) CPAP mask UNK 12/12/2020 12:00:00 AM EST active CPAP mask eCW1 ([facility]) CPAP mask UNK 12/12/2020 12:00:00 AM EST active CPAP mask eCW1 ([facility]) CPAP mask UNK 12/12/2020 12:00:00 AM EST active CPAP mask eCW1 ([facility]) CPAP mask UNK 12/12/2020 12:00:00 AM EST active CPAP mask eCW1 ([facility]) CPAP mask UNK 12/12/2020 12:00:00 AM EST active CPAP mask eCW1 ([facility]) CPAP mask UNK 12/12/2020 12:00:00 AM EST active CPAP mask eCW1 ([facility]) CPAP mask UNK 12/12/2020 12:00:00 AM EST active CPAP mask eCW1 ([facility]) CPAP mask UNK 12/12/2020 12:00:00 AM EST active CPAP mask eCW1 ([facility]) CPAP mask UNK 12/12/2020 12:00:00 AM EST active CPAP mask eCW1 ([facility]) CPAP mask UNK 12/12/2020 12:00:00 AM EST active CPAP mask eCW1 ([facility]) CPAP mask UNK 12/12/2020 12:00:00 AM EST active CPAP mask eCW1 ([facility]) CPAP mask UNK 12/12/2020 12:00:00 AM EST active CPAP mask eCW1 ([facility]) CPAP mask UNK 12/12/2020 12:00:00 AM EST active CPAP mask eCW1 ([facility]) CPAP mask UNK 12/12/2020 12:00:00 AM EST active CPAP mask eCW1 ([facility]) CPAP mask UNK 12/12/2020 12:00:00 AM EST active CPAP mask eCW1 ([facility]) 20 mg 12/11/2020 12:00:00 AM [...] 1.0 {tablet_with_food} active Xarelto 20 MG eCW1 ([facility]) rivaroxaban 20 MG Oral Tablet [Xarelto] Xarelto 20 MG Xarelt o 20 MG 11/26/2020 12:00:00 AM EST 1.0 {tablet_with_food} active Xarelto 20 MG eCW1 ([facility]) Fluoxetine 20 MG Oral Capsule FLUoxetine HCl 20 MG FLUoxetin e HCl 20 MG 11/26/2020 12:00:00 AM EST 3.0 {tablets} active FLUoxetine HCl 20 MG eCW1 ([facility]) Fluoxetine 20 MG Oral Capsule FLUoxetine HCl 20 MG FLUoxetin e HCl 20 MG 11/26/2020 12:00:00 AM EST 3.0 {tablets} active FLUoxetine HCl 20 MG eCW1 ([facility]) rivaroxaban 20 MG Oral Tablet [Xarelto] Xarelto 20 MG Xarelt o 20 MG 11/26/2020 12:00:00 AM EST 1.0 {tablet_with_food} active Xarelto 20 MG eCW1 ([facility]) rivaroxaban 20 MG Oral Tablet [Xarelto] Xarelto 20 MG Xarelt o 20 MG 11/26/2020 12:00:00 AM EST 1.0 {tablet_with_food} active Xarelto 20 MG eCW1 ([facility]) rivaroxaban 20 MG Oral Tablet [Xarelto] Xarelto 20 MG Xarelt o 20 MG 11/26/2020 12:00:00 AM EST 1.0 {tablet_with_food} active Xarelto 20 MG eCW1 ([facility]) 20 mg 11/26/2020 12:00:00 AM EST tablet 30 TAKE ONE TABLET BY MOUTH EVERY DAY WITH FOOD TAKE ONE TABLET BY MOUTH EVERY DAY WITH FOOD SOLD: 11/26/2020 [facility] rivaroxaban 20 MG Oral Tablet [Xarelto] Xarelto 20 MG Xarelt o 20 MG 11/26/2020 12:00:00 AM EST 1.0 {tablet_with_food} active Xarelto 20 MG eCW1 ([facility]) Fluoxetine 20 MG Oral Capsule FLUoxetine HCl 20 MG FLUoxetin e HCl 20 MG 11/26/2020 12:00:00 AM EST 3.0 {tablets} active FLUoxetine HCl 20 MG eCW1 ([facility]) Fluoxetine 20 MG Oral Capsule FLUoxetine HCl 20 MG FLUoxetin e HCl 20 MG 11/26/2020 12:00:00 AM EST 3.0 {tablets} active FLUoxetine HCl 20 MG eCW1 ([facility]) 25 mg 11/26/2020 12:00:00 AM EST tablet 60 TAKE 1-2 TABLETS BY MOUTH 30 MINUTES BEFORE BED TAKE 1-2 TABLETS BY MOUTH 30 MINUTES BEFORE BED SOLD: 11/26/2020 [facility] Fluoxetine 20 MG Oral Capsule FLUoxetine HCl 20 MG FLUoxetin e HCl 20 MG 11/26/2020 12:00:00 AM EST 3.0 {tablets} active FLUoxetine HCl 20 MG eCW1 ([facility]) 50 mcg/actuation 11/26/2020 12:00:00 AM [...] 1.0 {tablet_with_food} active Xarelto 20 MG eCW1 ([facility]) Fluoxetine 20 MG Oral Capsule FLUoxetine HCl 20 MG FLUoxetin e HCl 20 MG 11/26/2020 12:00:00 AM EST 3.0 {tablets} active FLUoxetine HCl 20 MG eCW1 ([facility]) rivaroxaban 20 MG Oral Tablet [Xarelto] Xarelto 20 MG Xarelt o 20 MG 11/26/2020 12:00:00 AM EST 1.0 {tablet_with_food} active Xarelto 20 MG eCW1 ([facility]) Metformin hydrochloride 500 MG Oral [...] {tablets} active FLUoxetine HCl 20 MG eCW1 ([facility]) rivaroxaban 20 MG Oral Tablet [Xarelto] Xarelto 20 MG Xarelt o 20 MG 11/26/2020 12:00:00 AM EST 1.0 {tablet_with_food} active Xarelto 20 MG eCW1 ([facility]) 25 mg 11/26/2020 12:00:00 AM EST tablet 60 TAKE 1-2 TABLETS BY MOUTH 30 MINUTES BEFORE BED TAKE 1-2 TABLETS BY MOUTH 30 MINUTES BEFORE BED SOLD: 12/22/2020 [facility] rivaroxaban 20 MG Oral Tablet [Xarelto] Xarelto 20 MG Xarelt o 20 MG 11/26/2020 12:00:00 AM EST 1.0 {tablet_with_food} active Xarelto 20 MG eCW1 ([facility]) Fluoxetine 20 MG Oral Capsule FLUoxetine HCl 20 MG FLUoxetin e HCl 20 MG 11/26/2020 12:00:00 AM EST 3.0 {tablets} active FLUoxetine HCl 20 MG eCW1 ([facility]) Fluoxetine 20 MG Oral Capsule FLUoxetine HCl 20 MG FLUoxetin e HCl 20 MG 11/26/2020 12:00:00 AM EST 3.0 {tablets} active FLUoxetine HCl 20 MG eCW1 ([facility]) 50 mcg/actuation 11/26/2020 12:00:00 AM EST spray,suspension 16 USE 1 SPRAY IN EACH NOSTRIL ONCE DAILY USE 1 SPRAY IN EACH NOSTRIL ONCE DAILY SOLD: 11/26/2020 [facility] rivaroxaban 20 MG Oral Tablet [Xarelto] Xarelto 20 MG Xarelt o 20 MG 11/26/2020 12:00:00 AM EST 1.0 {tablet_with_food} active Xarelto 20 MG eCW1 ([facility]) 20 mg 11/26/2020 12:00:00 AM [...] 1.0 {tablet_with_food} active Xarelto 20 MG eCW1 ([facility]) 20 mg 11/26/2020 12:00:00 AM [...] 1.0 {tablet_with_food} active Xarelto 20 MG eCW1 ([facility]) rivaroxaban 20 MG Oral Tablet [Xarelto] Xarelto 20 MG Xarelt o 20 MG 11/26/2020 12:00:00 AM EST 1.0 {tablet_with_food} active Xarelto 20 MG eCW1 ([facility]) Metformin hydrochloride 500 MG Oral [...] {tablets} active FLUoxetine HCl 20 MG eCW1 ([facility]) 25 mg 11/26/2020 12:00:00 AM EST tablet 60 TAKE 1-2 TABLETS BY MOUTH 30 MINUTES BEFORE BED TAKE 1-2 TABLETS BY MOUTH 30 MINUTES BEFORE BED SOLD: 04/06/2021 [facility] Fluoxetine 20 MG Oral Capsule FLUoxetine HCl 20 MG FLUoxetin e HCl 20 MG 11/26/2020 12:00:00 AM EST 3.0 {tablets} active FLUoxetine HCl 20 MG eCW1 ([facility]) rivaroxaban 20 MG Oral Tablet [Xarelto] Xarelto 20 MG Xarelt o 20 MG 11/26/2020 12:00:00 AM EST 1.0 {tablet_with_food} active Xarelto 20 MG eCW1 ([facility]) rivaroxaban 20 MG Oral Tablet [Xarelto] Xarelto 20 MG Xarelt o 20 MG 11/26/2020 12:00:00 AM EST 1.0 {tablet_with_food} active Xarelto 20 MG eCW1 ([facility]) Fluoxetine 20 MG Oral Capsule FLUoxetine HCl 20 MG FLUoxetin e HCl 20 MG 11/26/2020 12:00:00 AM EST 3.0 {tablets} active FLUoxetine HCl 20 MG eCW1 ([facility]) Metformin hydrochloride 500 MG Oral [...] 1.0 {tablet_with_food} active Xarelto 20 MG eCW1 ([facility]) 20 mg 11/26/2020 12:00:00 AM [...] 1.0 {tablet_with_food} active Xarelto 20 MG eCW1 ([facility]) Fluoxetine 20 MG Oral Capsule FLUoxetine HCl 20 MG FLUoxetin e HCl 20 MG 11/26/2020 12:00:00 AM EST 3.0 {tablets} active FLUoxetine HCl 20 MG eCW1 ([facility]) Fluoxetine 20 MG Oral Capsule FLUoxetine HCl 20 MG FLUoxetin e HCl 20 MG 11/26/2020 12:00:00 AM EST 3.0 {tablets} active FLUoxetine HCl 20 MG eCW1 ([facility]) Fluoxetine 20 MG Oral Capsule FLUoxetine HCl 20 MG FLUoxetin e HCl 20 MG 11/26/2020 12:00:00 AM EST 3.0 {tablets} active FLUoxetine HCl 20 MG eCW1 ([facility]) 20 mg 11/26/2020 12:00:00 AM EST capsule 60 TAKE TWO CAPSULES BY MOUTH EVERY DAY IN THE MORNING TAKE TWO CAPSULES BY MOUTH EVERY DAY IN THE MORNING SO LD: 04/27/2021 [facility] Fluoxetine 20 MG Oral Capsule FLUoxetine HCl 20 MG FLUoxetin e HCl 20 MG 11/26/2020 12:00:00 AM EST 3.0 {tablets} active FLUoxetine HCl 20 MG eCW1 ([facility]) Fluoxetine 20 MG Oral Capsule FLUoxetine HCl 20 MG FLUoxetin e HCl 20 MG 11/26/2020 12:00:00 AM EST 3.0 {tablets} active FLUoxetine HCl 20 MG eCW1 ([facility]) 20 mg 11/26/2020 12:00:00 AM [...] {tablets} active FLUoxetine HCl 20 MG eCW1 ([facility]) 20 mg 11/26/2020 12:00:00 AM EST tablet 30 TAKE ONE TABLET BY MOUTH EVERY DAY WITH FOOD TAKE ONE TABLET BY MOUTH EVERY DAY WITH FOOD SOLD: 05/23/2021 [facility] rivaroxaban 20 MG Oral Tablet [Xarelto] Xarelto 20 MG Xarelt o 20 MG 11/26/2020 12:00:00 AM EST 1.0 {tablet_with_food} active Xarelto 20 MG eCW1 ([facility]) 50 mcg/actuation 11/26/2020 12:00:00 AM EST spray,suspension 16 USE 1 SPRAY IN EACH NOSTRIL ONCE DAILY USE 1 SPRAY IN EACH NOSTRIL ONCE DAILY SOLD: 03/11/2021 [facility] Fluoxetine 20 MG Oral Capsule FLUoxetine HCl 20 MG FLUoxetin e HCl 20 MG 11/26/2020 12:00:00 AM EST 3.0 {tablets} active FLUoxetine HCl 20 MG eCW1 ([facility]) 20 mg 11/26/2020 12:00:00 AM EST capsule 60 TAKE TWO CAPSULES BY MOUTH EVERY DAY IN THE MORNING TAKE TWO CAPSULES BY MOUTH EVERY DAY IN THE MORNING SO LD: 03/20/2021 [facility] rivaroxaban 20 MG Oral Tablet [Xarelto] Xarelto 20 MG Xarelt o 20 MG 11/26/2020 12:00:00 AM EST 1.0 {tablet_with_food} active Xarelto 20 MG eCW1 ([facility]) Fluoxetine 20 MG Oral Capsule FLUoxetine HCl 20 MG FLUoxetin e HCl 20 MG 11/26/2020 12:00:00 AM EST 3.0 {tablets} active FLUoxetine HCl 20 MG eCW1 ([facility]) Fluoxetine 20 MG Oral Capsule FLUoxetine HCl 20 MG FLUoxetin e HCl 20 MG 11/26/2020 12:00:00 AM EST 3.0 {tablets} active FLUoxetine HCl 20 MG eCW1 ([facility]) 50 mcg/actuation 11/26/2020 12:00:00 AM EST spray,suspension 16 USE 1 SPRAY IN EACH NOSTRIL ONCE DAILY USE 1 SPRAY IN EACH NOSTRIL ONCE DAILY SOLD: 04/06/2021 [facility] rivaroxaban 20 MG Oral Tablet [Xarelto] Xarelto 20 MG Xarelt o 20 MG 11/26/2020 12:00:00 AM EST 1.0 {tablet_with_food} active Xarelto 20 MG eCW1 ([facility]) rivaroxaban 20 MG Oral Tablet [Xarelto] Xarelto 20 MG Xarelt o 20 MG 11/26/2020 12:00:00 AM EST 1.0 {tablet_with_food} active Xarelto 20 MG eCW1 ([facility]) Fluoxetine 20 MG Oral Capsule FLUoxetine HCl 20 MG FLUoxetin e HCl 20 MG 11/26/2020 12:00:00 AM EST 3.0 {tablets} active FLUoxetine HCl 20 MG eCW1 ([facility]) Fluoxetine 20 MG Oral Capsule FLUoxetine HCl 20 MG FLUoxetin e HCl 20 MG 11/26/2020 12:00:00 AM EST 3.0 {tablets} active FLUoxetine HCl 20 MG eCW1 ([facility]) 50 mcg/actuation 11/26/2020 12:00:00 AM EST spray,suspension 16 USE 1 SPRAY IN EACH NOSTRIL ONCE DAILY USE 1 SPRAY IN EACH NOSTRIL ONCE DAILY SOLD: 02/13/2021 [facility] rivaroxaban 20 MG Oral Tablet [Xarelto] Xarelto 20 MG Xarelt o 20 MG 11/26/2020 12:00:00 AM EST 1.0 {tablet_with_food} active Xarelto 20 MG eCW1 ([facility]) 20 mg 11/26/2020 12:00:00 AM EST capsule 60 TAKE TWO CAPSULES BY MOUTH EVERY DAY IN THE MORNING TAKE TWO CAPSULES BY MOUTH EVERY DAY IN THE MORNING SO LD: 06/04/2021 [facility] rivaroxaban 20 MG Oral Tablet [Xarelto] Xarelto 20 MG Xarelt o 20 MG 11/26/2020 12:00:00 AM EST 1.0 {tablet_with_food} active Xarelto 20 MG eCW1 ([facility]) Fluoxetine 20 MG Oral Capsule FLUoxetine HCl 20 MG FLUoxetin e HCl 20 MG 11/26/2020 12:00:00 AM EST 3.0 {tablets} active FLUoxetine HCl 20 MG eCW1 ([facility]) 50 mg 11/19/2020 12:00:00 AM [...] type / Coverage type Policy ID Covered green party ID Covered green party's relationship to bee Policy Bee Plan Information [facility] [place] [id number] ANSI-Commercial [id number] [facility]-Medicaid [id number] ANSI-Commercial [id number] ANSI-Medicaid [id number] ANSI-Medicaid [id number] ANSI-Ar[employer]al [id number] ANSI-Medicaid [id number] ANSIJack and Jake's [id number] ANSI-Medicaid [id number] ANSIJack [employer] Jake's [id number] [employer]-Medicaid [id number] ANSIJack [employer] Jake's [id number] ANSIJack [employer] Jake's [id number] ANSI-Medicaid [id number] ANSI[employer] Jake's [id number] ANSI-Medicaid [id number] ANSI-Medicaid [id number] ANSI-Commercial [id number] [facility] [id number] SP [id number] [facility] [id number] SP [id number] ANSI-Medicaid [id number] ANSI-Medicaid [id number] ANSI-Medicaid [id number] ANSI-Medicaid [id number] ANSI-Medicaid [id number] ANSI-Medicaid [id number] ANSI-Medicaid [id number] ANSI-Medicaid [id number] ANSI-Medicaid [id number] ANSI-Medicaid [id number] ANSI-Medicaid [id number] ANSI-Medicaid [id number] ANSI-Medicaid [id number] ANSI-Medicaid [id number] ANSI-Medicaid [id number] ANSI-Medicaid [id number] ANSI-Medicaid [id number] ANSI-Medicaid [id number] [facility]-Medicaid [id number] [facility]-Medicaid [id number] [facility]-Medicaid [id number] [facility] [id number] [facility] [id number] 26-00 Sliding Fee Scale P [id number] S 05 [id number] Problems, Conditions, and Diagnoses Code Display Name Description Problem Type Effective Dates Data Source(s) M19.90 [id number] Osteoarthritis, unsp ecified osteoarthritis type, unspecified site Problem 05/25/2021 12:00:00 AM EDT eCW1 ([facility]) E11.9 [id number] Type 2 diabetes dorota itus without complication, unspecified whether longwall foreman insulin use Problem 05/25/2021 12:00:00 AM EDT eCW 1 ([facility]) J15.212 [id number] Pneumonia due to met hicillin resistant Staphylococcus aureus, unspecified laterality, unspecified part of lung Problem 05/24/2021 12:00:00 AM EDT eCW1 ([facility]) I35.0 [id number] Nonrheumatic aortic valve stenosis Proble m 05/24/2021 12:00:00 AM EDT eCW1 ([facility]) E66.2 [id number] Obesity hypoventilation syndrome Problem 05/13/2021 12:00:00 AM EDT eCW1 ([facility]) J96.21 [id number] Acute and chronic respiratory fa ilure with hypoxia Problem 05/13/2021 12:00:00 AM EDT eCW1 ([facility]) J96.22 [id number] Acute and chronic respiratory fa ilure with hypercapnia Problem 05/13/2021 12:00:00 AM EDT eCW1 ([facility]) G47.33 31979779 CHELA (obstructive sleep apnea) Problem 05/13/2021 12:00:00 AM EDT eCW1 ([facility]) N93.9 [id number] Vaginal bleeding Problem 05/12/2021 12:00:00 AM EDT eCW1 ([facility]) N93.9 926415765 Abnormal bleeding in menstrual cycle Prob cristobal 04/04/2021 12:00:00 AM EDT eCW1 ([facility]) F41.9 00421930 Anxiety Problem 03/11/2021 12:00:00 AM ED T eCW1 ([facility]) Z68.44 039888447 BMI 60.0-69.9, adult Problem 03/11/2021 12:0 0:00 AM EDT eCW1 ([facility]) G47.00 Insomnia Insomnia, unspecified type Problem 12:00:00 AM EST eCW1 ([facility]) M13.0 [id number] Polyarthropathy Problem 11/26/2020 12:00:00 AM EST eCW1 ([facility]) Surgeries/Procedures Procedure Description Date Indications Data Source(s) [facility]/DAY 25 MINUTES 04/23/2021 12:00:00 AM EDT MED[facility] ([facility], ) CRITICAL CARE ILL/INJURED PATIENT INIT 30-74 MIN 04/22 12:00:00 AM EDT MED[facility] ([facility], ) CRITICAL CARE ILL/INJURED PATIENT INIT 30-74 MIN 04/21 12:00:00 AM EDT MED[facility] ([facility], ) CRITICAL CARE ILL/INJURED PATIENT INIT 30-74 MIN 04/20 12:00:00 AM EDT MED[facility] ([facility], ) CRITICAL CARE ILL/INJURED PATIENT INIT 30-74 MIN 04/19 12:00:00 AM EDT MED[facility] ([facility], ) CRITICAL CARE ILL/INJURED PATIENT INIT 30-74 MIN 04/18 12:00:00 AM EDT [facility] ([facility], ) CRITICAL CARE ILL/INJURED PATIENT INIT 30-74 MIN 04/17 12:00:00 AM EDT MED[facility] ([facility], ) CRITICAL CARE ILL/INJURED PATIENT INIT 30-74 MIN 04/16 12:00:00 AM EDT MED[facility] ([facility], ) CRITICAL CARE ILL/INJURED PATIENT INIT 30-74 MIN 04/15 12:00:00 AM EDT MED[facility] ([facility], ) CRITICAL CARE ILL/INJURED PATIENT ADDL 30 MIN 04/15/20 12:00:00 AM EDT MED[facility] ([facility], ) [facility]/DAY 25 MINUTES 04/14/2021 12:00:00 AM EDT [facility] ([facility], ) [facility]/DAY 25 MINUTES 04/13/2021 12:00:00 AM EDT [facility] ([facility], ) [facility]/DAY 25 MINUTES 04/12/2021 12:00:00 AM EDT [facility] ([facility], ) [facility]/DAY 25 MINUTES 04/11/2021 12:00:00 AM EDT MED[facility] ([facility], ) CRITICAL CARE ILL/INJURED PATIENT INIT 30-74 MIN 04/10 12:00:00 AM EDT MED[facility] ([facility], ) CRITICAL CARE ILL/INJURED PATIENT INIT 30-74 MIN 04/09 12:00:00 AM EDT [facility] ([facility], ) [facility]/DAY 25 MINUTES 03/26/2021 12:00:00 AM EDT [facility] ([facility], ) CRITICAL CARE ILL/INJURED PATIENT INIT 30-74 MIN 03/25 12:00:00 AM EDT [facility] ([facility], ) CRITICAL CARE ILL/INJURED PATIENT INIT 30-74 MIN 03/24 12:00:00 AM EDT [facility] ([facility], ) [facility]/DAY 25 MINUTES 03/23/2021 12:00:00 AM EDT MED[facility] ([facility], ) CRITICAL CARE ILL/INJURED PATIENT INIT 30-74 MIN 03/22 12:00:00 AM EDT MEDENT ([facility]) Results ID Date Data Source [id number] 06/06/2021 08:28:00 AM EDT MEDENT ([facility]) Name Value Range Interpretation Code Description Data Ally rce(s) Supporting Document(s) PDFReport Laboratory test result MEDENT ([facility]) FVC-Pred 3.68 L MED[facility] ([facility]) FVC-%Pred-Pre 37 L MEDENT ([facility]) FVC-Pre 1.39 L [facility] ([facility]) FVC-LLN 2.92 L [facility] ([facility]) Fev1-Pred 2.85 L [facility] ([facility]) Fev1-Pre 1.03 L [facility] ([facility]) Fev1-%Pred-Pre 36 L [facility] ([facility]) Fev6-Pre 1.39 L [facility] ([facility]) Fev6-Pred 3.55 L [facility] ([facility]) Fev1-LLN 2.20 L [facility] ([facility]) Fev6-%Pred-Pre 39 L [facility] ([facility]) Bzy9olm-Mwp 74 % [facility] ([facility]) Fev6-LLN 2.81 L [facility] ([facility]) Alw4yza-Vnjf 78 % [facility] ([facility]) Osy4gjh-LTY 68 % [facility] ([facility]) Day7jkc-%Pred-Pre 94 % MED[facility] ([facility]) Vqt8gaq-Nrkf 97 % [facility] ([facility]) Opu3lrf-%Pred-Pre 103 % [facility] ([facility]) Sfy1gtq-Eqt 100 % [facility] ([facility]) FEFMax-Pred 6.77 L/E/sec MED[facility] ([facility]) FEFMax-Pre 4.31 L/E/sec [facility] ([facility]) FEFMax-LLN 4.89 L/E/sec [facility] ([facility]) FEFMax-%Pred-Pre 63 L/E/sec [facility] ([facility]) Hvq7923-Xtt 0.69 L/E/sec [facility] ([facility]) Kct6099-Hngb 2.53 L/E/sec [facility] ([facility]) Tps1722-FOX 1.17 L/E/sec [facility] ([facility]) Kih9420-%Pred-Pre 27 L/E/sec [facility] ([facility]) Mfn0zxw7-Gnno 81 % [facility] ([facility]) ExpTime-Pre 6.64 sec MED[facility] ([facility]) Iaf8voc1-KTV 72 % [facility] ([facility]) Fvx2ran2-Uvx 74 % [facility] ([facility]) Emd3ule6-%Pred-Pre 91 % [facility] ([facility]) ID Date Data Source RENAL PROFILE 05/12/2021 12:00:00 AM EDT eCW1 ([facility]) Name Value Range Interpretation Code Description Data Ally rce(s) Supporting Document(s) 95 70-100 GLUCOSE, FASTING eCW1 ([facility]) 13 7-18 BLOOD UREA NITROGEN eCW1 ([facility]) 0.74 0.55-1.30 CREATININE FOR GFR eCW1 ([facility]) > 60.0 >45 GLOMERULAR FILTRATION RATE eCW 1 ([facility]) 103 98-107 CHLORIDE LEVEL eCW1 ([facility]) 3.7 3.5-5.1 POTASSIUM SERUM eCW1 ([facility]) 142 136-145 SODIUM LEVEL eCW1 ([facility]) 3.5 2.5-4.9 PHOSPHORUS LEVEL eCW1 ([facility]) 7.8 8.8-10.2 CALCIUM LEVEL eCW1 ([facility]) 34 21-32 CARBON DIOXIDE LEVEL eCW1 ([facility]) 3.3 3.2-5.2 ALBUMIN eCW1 ([facility]) ID Date Data Source MAGNESIUM LEVEL 05/12/2021 12:00:00 AM EDT eCW1 ([facility]) Name Value Range Interpretation Code Description Data Ally rce(s) Supporting Document(s) 1.9 1.8-2.4 MAGNESIUM LEVEL eCW1 ([facility]) ID Date Data Source [id number] 03/18/2021 06:11:00 AM EDT [facility] Name Value Range Interpretation Code Description Data Ally rce(s) Supporting Document(s) SARS coronavirus 2 RNA [Presence] in Res piratory specimen by [facility] with probe detection NEGATIVE [facility] This lab was ordered by [facility] a nd reported by [facility]. Procedure Social History Code Duration Value Status Description Data Source(s ) Smoking 07/25/2021 12:00:00 AM EDT Never Smoker completed Never S moker eCW1 ([facility]) Smoking 06/06/2021 12:00:00 AM EDT Patient has never smoked co mpleted Patient has never smoked [facility] ([facility]) Smoking 05/25/2021 12:00:00 AM EDT Never Smoker completed Never S moker eCW1 ([facility]) Smoking 05/25/2021 12:00:00 AM EDT Never Smoker completed Never S moker eCW1 ([facility]) Smoking 05/25/2021 12:00:00 AM EDT Never Smoker completed Never S moker eCW1 ([facility]) Smoking 05/25/2021 12:00:00 AM EDT Never Smoker completed Never S moker eCW1 ([facility]) Smoking 05/25/2021 12:00:00 AM EDT Never Smoker completed Never S moker eCW1 ([facility]) Smoking 05/25/2021 12:00:00 AM EDT Never Smoker completed Never S moker eCW1 ([facility]) Smoking 05/25/2021 12:00:00 AM EDT Never Smoker completed Never S moker eCW1 ([facility]) Smoking 05/25/2021 12:00:00 AM EDT Never Smoker completed Never S moker eCW1 ([facility]) Smoking 05/25/2021 12:00:00 AM EDT Never Smoker completed Never S moker [email or web address] ([facility]) Smoking 05/24/2021 12:00:00 AM EDT Never Smoker completed Never S moker [email or web address] ([facility]) Smoking 05/12/2021 12:00:00 AM EDT Never Smoker completed Never S moker [email or web address] ([facility]) Smoking 05/12/2021 12:00:00 AM EDT Never Smoker completed Never S moker [email or web address] ([facility]) Smoking 05/12/2021 12:00:00 AM EDT Never Smoker completed Never S moker [email or web address] ([facility]) Smoking 03/11/2021 12:00:00 AM EDT Never Smoker completed Never S moker [email or web address] ([facility]) Smoking 03/11/2021 12:00:00 AM EDT Never Smoker completed Never S moker [email or web address] ([facility]) Smoking 03/11/2021 12:00:00 AM EDT Never Smoker completed Never S moker [email or web address] ([facility]) Smoking 03/11/2021 12:00:00 AM EDT Never Smoker completed Never S moker [email or web address] ([facility]) Smoking 11/26/2020 12:00:00 AM EST Never Smoker completed Never S moker [email or web address] ([facility]) Smoking 11/26/2020 12:00:00 AM EST Never Smoker completed Never S moker [email or web address] ([facility]) Smoking 11/26/2020 12:00:00 AM EST Never Smoker completed Never S moker [email or web address] ([facility]) Smoking 11/26/2020 12:00:00 AM EST Never Smoker completed Never S moker [email or web address] ([facility]) Smoking 11/26/2020 12:00:00 AM EST Never Smoker completed Never S moker [email or web address] ([facility]) Smoking 11/26/2020 12:00:00 AM EST Never Smoker completed Never S moker [email or web address] ([facility]) Vital Signs ID Date Data Source UNK Name Value Range Interpretation Code Description Data Source(s) Oxygen saturation in Arterial blood by Pulse oximetry 983 % 983 % [facility] ([facility]) Systolic blood pressure 128 mm[Hg] 128 mm[Hg] M [facility] ([facility]) Body height 67 [in_i] 67 [in_i] [facility] ([facility]) 5'7" Diastolic blood pressure 78 mm[Hg] 78 mm[Hg] [facility] ([facility]) Heart rate 92 /min 92 /min [facility] ([facility] [facility]) Body weight 388.00 [lb_av] 388.00 [lb_av] [facility] Body weight 175.997 kg 175.997 kg [facility] ([facility]) Body mass index (BMI) [Ratio] 60.8 kg/m2 60.8 k g/m2 [facility] ([facility]) [place] body weight 135 [lb_av] 135 [lb_av] [facility] Body surface area Derived from formula 2.68 m2 2.68 m2 [facility] ([facility]) Body weight 388 [lb_av] 388 [lb_av] [facility] ([facility]) Body height 68 [in_i] 68 [in_i] [facility] ([facility]) Body mass index (BMI) [Ratio] 58.99 kg/m2 58.99 kg/m2 [facility] ([facility]) Heart rate 99 /min 99 /min eCW1 ([facility]) Respiratory rate 21 /min 21 /min eCW1 ([facility]) Body temperature 99.2 [degF] 99.2 [degF] eCW1 ( [facility]) Systolic blood pressure 150 mm[Hg] 150 mm[Hg] e CW1 ([facility]) Diastolic blood pressure 78 mm[Hg] 78 mm[Hg] eCW1 ([facility]) Body weight 450 [lb_av] 450 [lb_av] eCW1 ([facility]) Body weight 204.12 kg 204.12 kg eCW1 ([facility]) Body height 68 [in_i] 68 [in_i] eCW1 ([facility]) Body mass index (BMI) [Ratio] 68.41 kg/m2 68.41 kg/m2 eCW1 ([facility]) Heart rate 94 /min 94 /min eCW1 ([facility]) Respiratory rate 22 /min 22 /min eCW1 ([facility]) Body temperature 98.2 [degF] 98.2 [degF] eCW1 ( [facility]) Systolic blood pressure 128 mm[Hg] 128 mm[Hg] e CW1 ([facility]) Diastolic blood pressure 64 mm[Hg] 64 mm[Hg] eCW1 ([facility]) Body weight 450.0 [lb_av] 450.0 [lb_av] eCW1 ([facility]) Body weight 204.12 kg 204.12 kg eCW1 ([facility]) Body height 68 [in_i] 68 [in_i] eCW1 ([facility]) Body mass index (BMI) [Ratio] 68.41 kg/m2 68.41 kg/m2 eCW1 ([facility]) Heart rate 91 /min 91 /min eCW1 ([facility]) Respiratory rate 22 /min 22 /min eCW1 ([facility]) Body temperature 98.8 [degF] 98.8 [degF] eCW1 ( [facility]) Systolic blood pressure 138 mm[Hg] 138 mm[Hg] e CW1 ([facility]) Diastolic blood pressure 78 mm[Hg] 78 mm[Hg] eCW1 ([facility]) Heart rate 106 /min 106 /min eCW1 ([facility]) Respiratory rate 20 /min 20 /min eCW1 ([facility]) Body temperature 97.7 [degF] 97.7 [degF] eCW1 ( [facility]) Systolic blood pressure 138 mm[Hg] 138 mm[Hg] e CW1 ([facility]) Diastolic blood pressure 84 mm[Hg] 84 mm[Hg] eCW1 ([facility]) Body weight [lb_av] eCW1 ([facility]) Body height 68 [in_i] 68 [in_i] eCW1 ([facility]) Body mass index (BMI) [Ratio] 68.41 kg/m2 68.41 kg/m2 eCW1 ([facility]) Body weight 409.8 [lb_av] 409.8 [lb_av] eCW1 ([facility]) Body height 68 [in_i] 68 [in_i] eCW1 ([facility]) Body mass index (BMI) [Ratio] 62.30 kg/m2 62.30 kg/m2 W1 ([facility]) Heart rate 88 /min 88 /min eCW1 ([facility]) Respiratory rate 20 /min 20 /min eCW1 ([facility]) Body temperature 97.6 [degF] 97.6 [degF] eCW1 ( [facility]) Systolic blood pressure 142 mm[Hg] 142 mm[Hg] e CW1 ([facility]) Diastolic blood pressure 96 mm[Hg] 96 mm[Hg] eCW1 ([facility]) Patient Treatment Plan of Care Planned Activity Planned Date Details Description Data Source (s) gabapentin 100 MG Oral Capsule 05/25/2021 12:00:00 AM EDT eCW1 ([facility]) gabapentin 100 MG Oral Capsule 05/25/2021 12:00:00 AM EDT eCW1 ([facility]) gabapentin 100 MG Oral Capsule 05/25/2021 12:00:00 AM EDT eCW1 ([facility]) gabapentin 100 MG Oral Capsule 05/25/2021 12:00:00 AM EDT eCW1 ([facility]) gabapentin 100 MG Oral Capsule 05/25/2021 12:00:00 AM EDT eCW1 ([facility]) gabapentin 100 MG Oral Capsule 05/25/2021 12:00:00 AM EDT eCW1 ([facility]) gabapentin 100 MG Oral Capsule 05/25/2021 12:00:00 AM EDT eCW1 ([facility]) gabapentin 100 MG Oral Capsule 05/25/2021 12:00:00 AM EDT eCW1 ([facility]) gabapentin 100 MG Oral Capsule 05/25/2021 12:00:00 AM EDT eCW1 ([facility]) gabapentin 100 MG Oral Capsule 05/25/2021 12:00:00 AM EDT eCW1 ([facility]) Anoro Ellipta umeclidinium 62.5 mcg and vilanterol 25 mcg 04/04/2021 12:00:00 AM EDT eCW1 ([facility]) Anoro Ellipta umeclidinium 62.5 mcg and vilanterol 25 mcg 04/04/2021 12:00:00 AM EDT eCW1 ([facility]) Anoro Ellipta umeclidinium 62.5 mcg and vilanterol 25 mcg 04/04/2021 12:00:00 AM EDT eCW1 ([facility]) Anoro Ellipta umeclidinium 62.5 mcg and vilanterol 25 mcg 04/04/2021 12:00:00 AM EDT eCW1 ([facility]) Anoro Ellipta umeclidinium 62.5 mcg and vilanterol 25 mcg 04/04/2021 12:00:00 AM EDT eCW1 ([facility]) Anoro Ellipta umeclidinium 62.5 mcg and vilanterol 25 mcg 04/04/2021 12:00:00 AM EDT eCW1 ([facility]) Anoro Ellipta umeclidinium 62.5 mcg and vilanterol 25 mcg 04/04/2021 12:00:00 AM EDT eCW1 ([facility]) Anoro Ellipta umeclidinium 62.5 mcg and vilanterol 25 mcg 04/04/2021 12:00:00 AM EDT eCW1 ([facility]) Anoro Ellipta umeclidinium 62.5 mcg and vilanterol 25 mcg 04/04/2021 12:00:00 AM EDT eCW1 ([facility]) Anoro Ellipta umeclidinium 62.5 mcg and vilanterol 25 mcg 04/04/2021 12:00:00 AM EDT eCW1 ([facility]) Anoro Ellipta umeclidinium 62.5 mcg and vilanterol 25 mcg 04/04/2021 12:00:00 AM EDT eCW1 ([facility]) Anoro Ellipta umeclidinium 62.5 mcg and vilanterol 25 mcg 04/04/2021 12:00:00 AM EDT eCW1 ([facility]) buspirone hydrochloride 7.5 MG Oral Tablet 03/11/2021 12:00:00 AM E DT eCW1 ([facility]) 24 HR venlafaxine 37.5 MG Extended Release Oral Capsul e 03/11/2021 12:00:00 AM EDT eCW1 ([facility]) Trazodone Hydrochloride 50 MG Oral Tablet 03/11/2021 12:00:00 AM ED T eCW1 ([facility]) buspirone hydrochloride 7.5 MG Oral Tablet 03/11/2021 12:00:00 AM E DT eCW1 ([facility]) 24 HR venlafaxine 37.5 MG Extended Release Oral Capsul e 03/11/2021 12:00:00 AM EDT eCW1 ([facility]) Trazodone Hydrochloride 50 MG Oral Tablet 03/11/2021 12:00:00 AM ED T eCW1 ([facility]) buspirone hydrochloride 7.5 MG Oral Tablet 03/11/2021 12:00:00 AM E DT eCW1 ([facility]) 24 HR venlafaxine 37.5 MG Extended Release Oral Capsul e 03/11/2021 12:00:00 AM EDT eCW1 ([facility]) Trazodone Hydrochloride 50 MG Oral Tablet 03/11/2021 12:00:00 AM ED T eCW1 ([facility]) buspirone hydrochloride 7.5 MG Oral Tablet 03/11/2021 12:00:00 AM E DT eCW1 ([facility]) 24 HR venlafaxine 37.5 MG Extended Release Oral Capsul e 03/11/2021 12:00:00 AM EDT eCW1 ([facility]) Trazodone Hydrochloride 50 MG Oral Tablet 03/11/2021 12:00:00 AM ED T eCW1 ([facility]) CPAP mask 12/12/2020 12:00:00 AM EST e CW1 ([facility]) CPAP mask 12/12/2020 12:00:00 AM EST e CW1 ([facility]) rivaroxaban 20 MG Oral Tablet [Xarelto] 11/26/2020 12:00:00 AM EST eCW1 ([facility]) rivaroxaban 20 MG Oral Tablet [Xarelto] 11/26/2020 12:00:00 AM EST eCW1 ([facility]) rivaroxaban 20 MG Oral Tablet [Xarelto] 11/26/2020 12:00:00 AM EST eCW1 ([facility]) rivaroxaban 20 MG Oral Tablet [Xarelto] 11/26/2020 12:00:00 AM EST eCW1 ([facility]) rivaroxaban 20 MG Oral Tablet [Xarelto] 11/26/2020 12:00:00 AM EST eCW1 ([facility]) rivaroxaban 20 MG Oral Tablet [Xarelto] 11/26/2020 12:00:00 AM EST eCW1 ([facility]) rivaroxaban 20 MG Oral Tablet [Xarelto] 11/26/2020 12:00:00 AM EST eCW1 ([facility]) rivaroxaban 20 MG Oral Tablet [Xarelto] 11/26/2020 12:00:00 AM EST eCW1 ([facility]) rivaroxaban 20 MG Oral Tablet [Xarelto] 11/26/2020 12:00:00 AM EST eCW1 ([facility]) Fluoxetine 20 MG Oral Capsule 11/26/2020 12:00:00 AM EST eCW1 ([facility]) rivaroxaban 20 MG Oral Tablet [Xarelto] 11/26/2020 12:00:00 AM EST eCW1 ([facility]) Fluoxetine 20 MG Oral Capsule 11/26/2020 12:00:00 AM EST eCW1 ([facility]) rivaroxaban 20 MG Oral Tablet [Xarelto] 11/26/2020 12:00:00 AM EST eCW1 ([facility]) Fluoxetine 20 MG Oral Capsule 11/26/2020 12:00:00 AM EST eCW1 ([facility]) rivaroxaban 20 MG Oral Tablet [Xarelto] 11/26/2020 12:00:00 AM EST eCW1 ([facility]) Fluoxetine 20 MG Oral Capsule 11/26/2020 12:00:00 AM EST eCW1 ([facility]) rivaroxaban 20 MG Oral Tablet [Xarelto] 11/26/2020 12:00:00 AM EST eCW1 ([facility]) rivaroxaban 20 MG Oral Tablet [Xarelto] 11/26/2020 12:00:00 AM EST eCW1 ([facility]) rivaroxaban 20 MG Oral Tablet [Xarelto] 11/26/2020 12:00:00 AM EST eCW1 ([facility]) Fluoxetine 20 MG Oral Capsule 11/26/2020 12:00:00 AM EST eCW1 ([facility]) rivaroxaban 20 MG Oral Tablet [Xarelto] 11/26/2020 12:00:00 AM EST eCW1 ([facility]) Fluoxetine 20 MG Oral Capsule 11/26/2020 12:00:00 AM EST eCW1 ([facility]) rivaroxaban 20 MG Oral Tablet [Xarelto] 11/26/2020 12:00:00 AM EST eCW1 ([facility])
[2021-08-19] MEDS ORDERED: ACET650T61 PO (22:21)
[2021-08-19] MEDS ORDERED: METO1TAB87 PO (22:21)
[2021-08-19] MEDS ORDERED: ANOR1AER PO (22:21)
[2021-08-19] MEDS ORDERED: PROAAER10 INH (22:21)
[2021-08-19] MEDS ORDERED: FURO40TA2 PO (22:21)
[2021-08-19] MEDS ORDERED: PANT40TA29 PO (22:21)
[2021-08-19] MEDS ORDERED: VENL37.52 PO (22:21)
[2021-08-19] MEDS ORDERED: BUSP1TAB PO (22:21)
[2021-08-19] MEDS ORDERED: HYDR-3363 PO (22:21)
[2021-08-19] MEDS ORDERED: HOME MED LIST COMPLETE! XX SCH (22:25)
[2021-08-19] MEDS ORDERED: FLUTICASONE PROP 0.05% NASAL SPRAY 16 GM (FLONASE) PRN (23:00)
[2021-08-19] MEDS ORDERED: ALBUTEROL 90 MCG/ACT 8GM HFA INHALER INH PRN (23:00)
[2021-08-19] MEDS ORDERED: PILL CUTTER 1 EACH XX PRN (23:25)
[2021-08-19] MEDS: MAGNESIUM OXIDE 400MG TAB (MAG-OX) PO SCH (23:52)
[2021-08-19] MEDS: METOPROLOL TART 25 MG TABLET PO SCH (23:52)
[2021-08-20] VITALS (22 sets, daily range): BP systolic 107–157; BP diastolic 46–85; O2SAT 93–98
[2021-08-20] MEDS ORDERED: FUROSEMIDE 20MG/2ML VIAL (J1940) IV ONE (00:25)
[2021-08-20] MEDS: medroxyPROGESTERone 5MG TABLET PO SCH ×2 (02:07→07:54)
--- NOTE | 2021-08-20 07:12 | ECGEPIP ---
[facility] - ED Test Date: 2021-08-19 Pat Name: MARLENY MARIE Department: Room: [place] [address] Gender: Female Component Inspector: priscilla : [id number] Requested By: HALIMA ROONEY Order Number: [id number] Reading MD: James Serna Measurements Intervals [place] Rate: 107 P: 82 [place]: 168 QRS: -50 QRSD: 154 T: 14 QT: 388 QTc: 517 Interpretive Statements Sinus tachycardia Possible Left atrial enlargement Right bundle branch block Left anterior fascicular block Bifascicular block Electronically Signed on 08-20-2021 7:12:11 EST by James Serna
[2021-08-20] MEDS: METOPROLOL TART 25 MG TABLET PO SCH (07:55)
[2021-08-20] MEDS: MAGNESIUM OXIDE 400MG TAB (MAG-OX) PO SCH (07:55)
[2021-08-20] MEDS ORDERED: TIOTROPIUM INHALER/CAPSULE (SPIRIVA) INH SCH (08:00)
[2021-08-20] MEDS ORDERED: SYMBICORT 160/4.5MCG INHALER 6GM INH SCH (08:00)
[2021-08-20] MEDS: busPIRone 5 MG TAB PO SCH (08:03)
[2021-08-20] MEDS ORDERED: FUROSEMIDE 40 MG TAB PO SCH (09:00)
[2021-08-20] MEDS ORDERED: VENLAFAXINE **XR** 37.5 MG CAPSULE PO SCH (09:00)
[2021-08-20] MEDS ORDERED: PANTOPRAZOLE 40MG TAB (PROTONIX) PO SCH (09:00)
[2021-08-20 09:22] LABS: BASO # 0.1 10^3/uL (0.0-0.2); BASO % 0.4 % (0.0-1.0); EOS # 0.1 10^3/uL (0.0-0.5); EOS % 0.6 % (0.0-3.0); HEMATOCRIT 28.1 % (36.0-47.0); HEMOGLOBIN 7.8 g/dl (12.0-15.5); LYMPH # 0.9 10^3/uL (1.5-5.0); LYMPH % 7.5 % (24.0-44.0); MEAN CORPUSCULAR HEMOGLOBIN 19.8 pg (27.0-33.0); MEAN CORPUSCULAR HGB CONC 27.8 g/dl (32.0-36.5); MEAN CORPUSCULAR VOLUME 71.5 fl (80.0-96.0); MONO # 0.7 10^3/uL (0.0-0.8); MONO % 5.6 % (2.0-8.0); NEUTROPHILS % 85.3 % (36.0-66.0); PLATELET COUNT, AUTOMATED 365 10^3/uL (150-450); RED BLOOD COUNT 3.93 10^6/uL (4.00-5.40); WHITE BLOOD COUNT 11.7 10^3/uL (4.0-10.0)
[2021-08-20 09:36] LABS: ALBUMIN 3.3 GM/DL (3.2-5.2); ALT/SGPT 15 U/L (12-78); BILIRUBIN,TOTAL 0.7 MG/DL (0.2-1.0); BLOOD UREA NITROGEN 15 MG/DL (7-18); CALCIUM LEVEL 8.6 MG/DL (8.8-10.2); CARBON DIOXIDE LEVEL 29 MEQ/L (21-32); CHLORIDE LEVEL 106 MEQ/L (98-107); CREATININE FOR GFR 0.93 MG/DL (0.55-1.30); GLOMERULAR FILTRATION RATE > 60.0 (>45); GLUCOSE, FASTING 148 MG/DL (70-100); MAGNESIUM LEVEL 2.2 MG/DL (1.8-2.4); SODIUM LEVEL 141 MEQ/L (136-145); TOTAL PROTEIN 7.2 GM/DL (6.4-8.2)
--- NOTE | 2021-08-20 13:41 | DS.PDOC ---
Discharge Summary General Date of Admission Aug 19, 2021 at 21:40 Date of Discharge 08/20/21 Discharge Summary PROCEDURES PERFORMED DURING STAY: [None]. DISCHARGE DIAGNOSES: #DUB/anemia Super morbid obesity. CHELA/OHS, O2 dependent, on 3L NC at home. On Bipap, does not know her settings. Followed by Dr. Lozano. Hypertension. Diastolic heart failure with preserved systolic function, ejection fraction 60-6 5%. Pulmonary embolism/chronic anti-coagulation. Protein C deficiency. Depression. Seasonal allergies COMPLICATIONS/CHIEF COMPLAINT: Anemia,Dub. HISTORY OF PRESENT ILLNESS: From H&P: Mrs. Quinonez is a pleasant 61-year-old female with a past medical history of HFpEF, CHELA, OHS (3L chronic O2 at home as baseline, BIPAP, PE secondary to protein C deficiency, class III obesity, prolonged hospitalization and ICU stay with intubation due to acute on chronic hypoxemic and hypercapnic respiratory failure in April 2021 as well as chronic vaginal bleeding presented to the ER after she was informed by her primary care doctor that her hemoglobin was below 7. She had previously been evaluated by gynecology service in March 2021 for heavy postmenopausal bleeding resulting in anemia requiring 2 units of packed red blood cells. She underwent an endometrial biopsy showing predominantly fibrin no hemorrhagic debris admixed with endocervical mucosa, negative for malignancy. She was started on 10 mg of Provera twice daily and plan for follow-up with gynecology as outpatient. She has been plan for possible hysterectomy or hysteroscopy with dilation and curettage however given her body habitus and severe CHELA/OHS general anesthesia may be precluding factor. She currently has follow-up with women's wellness and breast care in the next 2 weeks. She states that since starting Provera she has noted a significant improvement in her bleeding and has not seen a tremendous increase in frequency or quantity of bleeding. Certainly Xarelto exacerbates her bleeding. She denies any chest pain palpitations shortness of breath nausea vomiting diarrhea or severe fatigue. 2 units of blood red blood cells have been ordered in the ER. She will be admitted for observation under the hospitalist service HOSPITAL COURSE: Patient received 2 units of packed red blood cells and her hemoglobin increased from 7-7.8. Case was discussed with [facility] on-call with recommendations for discharge home with outpatient follow-up. Further discussion agreed for transfusion of an additional unit PRBC, and to continue xarelto, with outpatient follow up. DISCHARGE MEDICATIONS: Please see below. ALLERGIES: Please see below. PHYSICAL EXAMINATION ON DISCHARGE: Vital Signs: reviewed General: NAD, lying comfortably in bed HEENT: NC/AT, EOMI Neck: supple, no masses Chest: lungs CTA B/L Heart: +S1S2, RRR Abd: soft, NT, ND, +BS Ext: no edema Skin: no rashes MSK: full ROM at large joints Neuro: no gross focal deficits Psych: AAOx3 LABORATORY DATA: Please see below. ACTIVITY: [As tolerated]. DISCHARGE INSTRUCTIONS: 1. 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 recommend follow up CBC in 1-3 days DISCHARGE CONDITION: [Stable]. TIME SPENT ON DISCHARGE: 35 minutes. Vital Signs/I&Os Vital Signs Date Time Temp Pulse Resp B/P (MAP) Pulse Ox O2 Delivery O2 Flow Rate FiO2 08/20/21 12:55 98.4 94 18 137/78 96 Nasal Cannula 3.0 I&O- Last 24 Hours up to 6 AM 08/20/21 06:00 Intake Total 990 ml Output Total 2275 ml Balance -1285 ml Laboratory Data Labs 24H Laboratory Tests 2 08/19/21 18:02: Immature Granulocyte % (Auto) 0.7, Neutrophils (%) (Auto) 84.9H, Lymphocytes (%) (Auto) 8.7L, Monocytes (%) (Auto) 4.7, Eosinophils (%) (Auto) 0.8, Basophils (%) (Auto) 0.2, Neutrophils # (Auto) 12.0H, Lymphocytes # (Auto) 1.2L, Monocytes # (Auto) 0.7, Eosinophils # (Auto) 0.1, Basophils # (Auto) 0.0, Nucleated Red Blood Cells % (auto) 0.1H, Prothrombin Time 16.5H, Prothromb Time International Ratio 1.28, Activated Partial Thromboplast Time 32.2, Anion Gap 5L, Glomerular Filtration Rate 58.0, Calcium Level 8.5L, Total Bilirubin 0.5, Direct Bilirubin 0.1, Aspartate Amino Transf (AST/SGOT) 8, Alanine Aminotransferase (ALT/SGPT) 16, Alkaline Phosphatase 45, Total Creatine Kinase 28, Creatine Kinase MB < 1.0, Creatine Kinase MB Relative Index 3.57, Troponin I < 0.02, Total Protein 7.9, Albumin 3.6, Albumin/Globulin Ratio 0.8L, Lipase 211, Thyroid Stimulating Hormone (TSH) 0.486 08/19/21 18:30: Coronavirus (COVID-19)(PCR) NEGATIVE, Influenza Type A (RT-PCR) NEGATIVE, Influenza Type B (RT-PCR) NEGATIVE, Respiratory Syncytial Virus (PCR) NEGATIVE 08/20/21 09:03: Immature Granulocyte % (Auto) 0.6, Neutrophils (%) (Auto) 85.3H, Lymphocytes (%) (Auto) 7.5L, Monocytes (%) (Auto) 5.6, Eosinophils (%) (Auto) 0.6, Basophils (% ) (Auto) 0.4, Neutrophils # (Auto) 10.0H, Lymphocytes # (Auto) 0.9L, Monocytes # (Auto) 0.7, Eosinophils # (Auto) 0.1, Basophils # (Auto) 0.1, Nucleated Red Blood Cells % (auto) 0.2H, Anion Gap 6L, Glomerular Filtration Rate > 60.0, Calcium Level 8.6L, Total Bilirubin 0.7, Aspartate Amino Transf (AST/SGOT) 8, Alanine Aminotransferase (ALT/SGPT) 15, Alkaline Phosphatase 40L, Total Protein 7.2, Albumin 3.3, Albumin/Globulin Ratio 0.8L, Magnesium Level 2.2 CBC/BMP Laboratory Tests 08/19/21 18:02 08/20/21 09:03 Discharge Medications Scheduled Buspirone HCl (Buspirone HCl) 7.5 Mg Tablet, 7.5 MG PO BID, (Reported) Furosemide (Furosemide) 40 Mg Tablet, 40 MG PO DAILY, (Reported) Hydroxyzine HCl (Hydroxyzine HCl) 25 Mg Tablet, 25 MG PO QHS, (Reported) Magnesium Oxide (Magnesium Oxide) 400 Mg Tablet, 400 MG PO BID, (Reported) Medroxyprogesterone Acetate (Medroxyprogesterone Acetate) 10 Mg Tablet, 10 MG PO BID, (Reported) Metformin HCl (Metformin HCl) 500 Mg Tablet, 500 MG PO BID, (Reported) Metoprolol Tartrate (Metoprolol Tartrate) 25 Mg Tablet, 25 MG PO TID, (Reported) Montelukast Sodium (Montelukast Sodium) 10 Mg Tablet, 10 MG PO QPM, (Reported) TAKES AFTER DINNER Pantoprazole Sodium (Pantoprazole Sodium) 40 Mg Tablet.dr, 40 MG PO DAILY, (Reported) Rivaroxaban (Xarelto) 20 Mg Tablet, 20 MG PO QPM, (Reported) TAKES AFTER DINNER Umeclidinium Brm/Vilanterol Tr (Anoro Ellipta 62.5-25 Mcg INH) 1 Each B lst.w.dev, 1 PUFF PO DAILY, (Reported) Venlafaxine HCl (Venlafaxine HCl ER) 37.5 Mg Cap.er.24h, 37.5 MG PO DAILY, (Reported) Scheduled PRN Acetaminophen (Tylenol Arthritis) 650 Mg Tablet.er, 1,300 MG PO TID PRN for PAIN LEVEL 1-4, (Reported) Albuterol Sulfate (Proair Hfa) 8.5 Gm Hfa.aer.ad, 2 PUFF INH Q4H PRN for SOB/WHEEZING, (Reported) Fluticasone Propionate (Flonase Allergy Relief) 9.9 Ml [place].susp, 1 SPRAY NA DAILY PRN for NASAL CONGESTION, (Reported) Allergies Coded Allergies: No Known Allergies (Verified Allergy, Unknown, 03/18/21) YODIT GIBBS MD Aug 20, 2021 13:41
[2021-08-20] MEDS ORDERED: MONTELUKAST 10 MG TAB PO SCH (18:00)
== END 2021-08-20 14:52 | disposition home or self-care (01) | DRG 663 ==
LOC: M ED 16:28 → M ED INP 21:40 → M MSPAV 23:34
PROVIDERS: ADMIT Family Medicine; ATTEND Internal Medicine
PROC: 30233N1 Transfusion of Nonautologous Red Blood Cells into Peripheral Vein, Percutaneous Approach (ICD-10-PCS; principal; 2021-08-20)
DX: D64.9 Anemia, unspecified (principal); I50.31 Acute diastolic (congestive) heart failure; D68.59 Other primary thrombophilia; Z99.81 Dependence on supplemental oxygen; Z68.43 Body mass index [BMI] 50.0-59.9, adult; N93.8 Other specified abnormal uterine and vaginal bleeding; E66.01 Morbid (severe) obesity due to excess calories; F32.9 Major depressive disorder, single episode, unspecified; G47.33 Obstructive sleep apnea (adult) (pediatric); Z79.01 Long term (current) use of anticoagulants; I11.0 Hypertensive heart disease with heart failure; Z79.899 Other long term (current) drug therapy; N95.0 Postmenopausal bleeding; K21.9 Gastro-esophageal reflux disease without esophagitis

== ENCOUNTER → 2021-08-19 | Outpatient (REF) | payer OTHER ==
[~2021-08-19] MED LIST changes: +ANOR1AER PO; +HYDR-3363 PO; +MEDR10TA PO; +VENL37.52 PO
[2021-08-19 14:29] LABS: BASO % 0.3 % (0.0-1.0); EOS # 0.2 10^3/uL (0.0-0.5); EOS % 1.4 % (0.0-3.0); HEMATOCRIT 26.1 % (36.0-47.0); LYMPH # 1.7 10^3/uL (1.5-5.0); LYMPH % 13.5 % (24.0-44.0); MEAN CORPUSCULAR HEMOGLOBIN 18.1 pg (27.0-33.0); MEAN CORPUSCULAR HGB CONC 25.3 g/dl (32.0-36.5); MEAN CORPUSCULAR VOLUME 71.5 fl (80.0-96.0); MONO # 0.9 10^3/uL (0.0-0.8); MONO % 6.8 % (2.0-8.0); NEUTROPHILS # 9.8 10^3/uL (1.5-8.5); NEUTROPHILS % 77.5 % (36.0-66.0); PLATELET COUNT, AUTOMATED 417 10^3/uL (150-450); RED BLOOD COUNT 3.65 10^6/uL (4.00-5.40); WHITE BLOOD COUNT 12.6 10^3/uL (4.0-10.0)
[2021-08-19 14:32] LABS: HEMOGLOBIN 6.6 g/dl (12.0-15.5)
== END ==
LOC: M SHH 13:48
PROVIDERS: ATTEND Student in an Organized Health Care Education/Training Program
DX: D64.9 Anemia, unspecified (principal)

== ENCOUNTER → 2022-01-06 | Outpatient (CLI) | payer OTHER ==
[~2022-01-06] MED LIST changes: +ANOR1AER PO; +FLUO-96 PO; -FLUO20CA20 PO; +HYDR-3363 PO; -LISI20TA20 PO; +LISI20TA37 PO; +MEDR10TA PO; -MONT10TA10 PO; +MONT10TA97 PO; +VENL37.52 PO
== END ==
LOC: M WHC 11:28
PROVIDERS: ATTEND Obstetrics & Gynecology
DX: N95.0 Postmenopausal bleeding (principal); N85.2 Hypertrophy of uterus; D25.9 Leiomyoma of uterus, unspecified

== ENCOUNTER → 2022-07-31 | Outpatient (CLI) | payer OTHER ==
[~2022-07-31] MED LIST changes: +AMIT25TA17 PO; +CETI-24 PO; +COLA100C5 PO; +FERR1TAB8 PO; +MIRA3350 PO; +SENN18TA PO; +VITA500054 PO
[2022-07-31 14:29] LABS: HEMATOCRIT 35.1 % (36.0-47.0); MEAN CORPUSCULAR HGB CONC 28.5 g/dl (32.0-36.5); MEAN CORPUSCULAR VOLUME 91.4 fl (80.0-96.0); PLATELET COUNT, AUTOMATED 441 10^3/uL (150-450); RED BLOOD COUNT 3.84 10^6/uL (4.00-5.40); WHITE BLOOD COUNT 9.9 10^3/uL (4.0-10.0)
== END ==
LOC: M PLALAB 09:38
PROVIDERS: ATTEND Student in an Organized Health Care Education/Training Program
DX: N95.0 Postmenopausal bleeding (principal)

== ENCOUNTER → 2023-05-28 | Outpatient (CLI) | payer OTHER ==
[~2023-05-28] MED LIST changes: -AMIT25TA17 PO; +AMIT25TA19 PO; -MEDR10TA PO; +MEDR10TA9 PO; +SENN-111 PO; -SENN18TA PO
[2023-05-28 11:13] LABS: BASO % 0.4 % (0.0-1.0); EOS # 0.1 10^3/uL (0.0-0.5); EOS % 1.2 % (0.0-3.0); HEMATOCRIT 44.9 % (36.0-47.0); HEMOGLOBIN 14.1 g/dl (12.0-15.5); LYMPH # 1.2 10^3/uL (1.5-5.0); LYMPH % 11.1 % (24.0-44.0); MEAN CORPUSCULAR HEMOGLOBIN 28.9 pg (27.0-33.0); MEAN CORPUSCULAR HGB CONC 31.4 g/dl (32.0-36.5); MONO # 0.7 10^3/uL (0.0-0.8); MONO % 5.9 % (2.0-8.0); NEUTROPHILS # 8.8 10^3/uL (1.5-8.5); NEUTROPHILS % 80.9 % (36.0-66.0); PLATELET COUNT, AUTOMATED 293 10^3/uL (150-450); RED BLOOD COUNT 4.88 10^6/uL (4.00-5.40); WHITE BLOOD COUNT 10.9 10^3/uL (4.0-10.0)
[2023-05-28 11:37] LABS: ALBUMIN 3.8 G/DL (3.2-5.2); ALKALINE PHOSPHATASE 41 U/L (46-116); ALT/SGPT 22 U/L (7.0-40); AST/SGOT < 8 U/L (<34); BILIRUBIN,TOTAL 0.5 MG/DL (0.3-1.2); BLOOD UREA NITROGEN 29 MG/DL (9-23); CALCIUM LEVEL 9.5 MG/DL (8.3-10.6); CARBON DIOXIDE LEVEL 27 MMOL/L (20-31); CHLORIDE LEVEL 101 MMOL/L (98-107); CHOLESTEROL LEVEL 151 MG/DL (<200); CHOLESTEROL RISK RATIO 5.71 (<5); CREATININE FOR GFR 1.04 MG/DL (0.55-1.30); GLOMERULAR FILTRATION RATE 57.2 (>45); GLUCOSE, FASTING 144 MG/DL (74-106); HDL CHOLESTEROL 26.4 MG/DL (>40); LDL CHOLESTEROL 68.8 MG/DL (<100); NON-HDL-C 124.6 MG/DL; SODIUM LEVEL 139 MMOL/L (136-145); TOTAL PROTEIN 7.8 G/DL (5.7-8.2); TRIGLYCERIDES LEVEL 279 MG/DL (<150)
[2023-05-28 13:15] LABS: HEMOGLOBIN A1c 5.9 % (4.0-6.0)
== END ==
LOC: M LAB 10:23
PROVIDERS: ATTEND Student in an Organized Health Care Education/Training Program
DX: D50.9 Iron deficiency anemia, unspecified (principal); I10 Essential (primary) hypertension; E11.9 Type 2 diabetes mellitus without complications

== ENCOUNTER → 2023-12-26 | Outpatient (REF) | payer OTHER | LOC: M SFHCPLAZ 12:48 | PROVIDERS: ATTEND Physician Assistant | DX: J02.9 Acute pharyngitis, unspecified (principal) ==

== ENCOUNTER 2024-02-12 08:47 | Inpatient (IN) | payer OTHER ==
[2024-02-12] VITALS (11 sets, daily range): BP systolic 104–133; BP diastolic 50–75; TEMP 97.5–97.7; O2SAT 89–97
[~2024-02-12] VITALS: Ht 172.7 cm; Wt 180.7 kg
[2024-02-12 09:27] LABS: ABG HCO3 34.4 MMOL/L (22.0-26.0); ABG O2 SATURATION 93.9 % (95.0-99.0); ABG PARTIAL PRESSURE CO2 59.6 mmHg (35.0-45.0); ABG PARTIAL PRESSURE O2 69.7 mmHg (75.0-100.0); ABG STANDARD HCO3 30.8 MMOL/L. (22.0-26.0); ABG TOTAL CO2 36.2 MMOL/L (23.0-31.0); ABG pH (ARTERIAL) 7.379 UNITS (7.350-7.450)
[2024-02-12] MEDS: dilTIAZem 25MG/5ML VIAL IV STA (09:36)
[2024-02-12] MEDS ORDERED: ISOVUE-370 76% 100ML VIAL As Ordered ONE (09:43)
[2024-02-12 09:56] LABS: BASO # 0.1 10^3/uL (0.0-0.2); BASO % 0.4 % (0.0-1.0); EOS # 0.1 10^3/uL (0.0-0.5); EOS % 0.7 % (0.0-3.0); HEMOGLOBIN 14.5 g/dl (12.0-15.5); LYMPH # 1.1 10^3/uL (1.5-5.0); LYMPH % 8.9 % (24.0-44.0); MEAN CORPUSCULAR HEMOGLOBIN 29.5 pg (27.0-33.0); MEAN CORPUSCULAR HGB CONC 30.2 g/dl (32.0-36.5); MEAN CORPUSCULAR VOLUME 97.8 fl (80.0-96.0); MONO # 0.9 10^3/uL (0.0-0.8); MONO % 7.1 % (2.0-8.0); NEUTROPHILS % 82.1 % (36.0-66.0); PLATELET COUNT, AUTOMATED 317 10^3/uL (150-450); RED BLOOD COUNT 4.91 10^6/uL (4.00-5.40); WHITE BLOOD COUNT 12.1 10^3/uL (4.0-10.0)
[2024-02-12 10:08] LABS: INR 1.11; PARTIAL THROMBOPLASTIN TIME 26.3 SECONDS (24.8-34.2)
[2024-02-12 10:19] LABS: MAGNESIUM LEVEL 2.1 MG/DL (1.8-2.4)
[2024-02-12 10:20] LABS: ALBUMIN 2.9 G/DL (3.2-5.2); BLOOD UREA NITROGEN 39 MG/DL (9-23); CARBON DIOXIDE LEVEL 34 MMOL/L (20-31); CHLORIDE LEVEL 100 MMOL/L (98-107); GLUCOSE, FASTING 178 MG/DL (74-106); LIPASE 48 U/L (12-53); POTASSIUM SERUM 5.3 MMOL/L (3.5-5.1); SODIUM LEVEL 140 MMOL/L (136-145)
[2024-02-12 10:22] LABS: CK-MB VALUE MASS < 1.0 NG/ML (<3.6)
[2024-02-12 10:23] LABS: ALKALINE PHOSPHATASE 42 U/L (46-116); ALT/SGPT 27 U/L (7.0-40); AST/SGOT 16 U/L (<34); BILIRUBIN,DIRECT 0.2 MG/DL (<0.4); BILIRUBIN,TOTAL 0.4 MG/DL (0.3-1.2); CALCIUM LEVEL 8.2 MG/DL (8.3-10.6); CREATININE FOR GFR 1.09 MG/DL (0.55-1.30); TOTAL PROTEIN 6.9 G/DL (5.7-8.2)
[2024-02-12] MEDS ORDERED: AMIODARONE 150MG/3ML VIAL IVP STA (10:23)
[2024-02-12 10:24] LABS: HCG, SERUM QUALITATIVE NEGATIVE (NEGATIVE)
[2024-02-12 10:25] LABS: FREE T4 0.99 NG/DL (0.89-1.76); THYROID STIMULATING HORMONE 0.749 uIU/ML (0.55-4.78)
[2024-02-12 10:33] LABS: CPK CREATINE PHOSPHOKINASE 48 U/L (34-145); MB/CK RELATIVE INDEX 2.08 (< OR =4)
[2024-02-12 10:46] LABS: CK-MB VALUE MASS < 1.0 NG/ML (<3.6)
[2024-02-12] MEDS: AMIODARONE HCL 150 MG in IV 1 EA IV SCH (10:48)
[2024-02-12] MEDS: DIGOXIN INJ 0.5 MG/2 ML AMP IV STA (10:50)
[2024-02-12 10:59] LABS: CPK CREATINE PHOSPHOKINASE 53 U/L (34-145); MB/CK RELATIVE INDEX 1.88 (< OR =4)
[2024-02-12 12:04] LABS: CREATININE FOR GFR 1.08 MG/DL (0.55-1.30); GLOMERULAR FILTRATION RATE 54.5 (>45)
[2024-02-12] MEDS: AMIODARONE HCL 360 MG in IV 1 EA IV SCH ×2 (12:12→20:04)
[2024-02-12] MEDS: ENOXAPARIN 100MG/1ML SYRINGE (J1650 PER 10MG) SC ONE (12:13)
[2024-02-12] MEDS ORDERED: DOCU100C16 PO (12:14)
[2024-02-12] MEDS ORDERED: FERR325T19 PO (12:14)
[2024-02-12] MEDS ORDERED: ALBU8.5H INH (12:14)
[2024-02-12] MEDS ORDERED: METO1TAB7 PO (12:22)
[2024-02-12] MEDS ORDERED: MIRA3350 PO (12:22)
[2024-02-12] MEDS ORDERED: METO1TAB32 PO (12:22)
[2024-02-12] MEDS ORDERED: HOME MED LIST COMPLETE! XX SCH (12:25)
[2024-02-12] MEDS ORDERED: MOM 30ML SUSPENSION UDC PO PRN (12:40)
[2024-02-12] MEDS ORDERED: GLUCAGON INJ 1MG VIAL SC PRN (12:40)
[2024-02-12] MEDS ORDERED: GLUCOSE 4 GM CHEW PO PRN (12:40)
[2024-02-12] MEDS ORDERED: MAALOX 30 ML SUSP *UDC PO PRN (12:40)
[2024-02-12] MEDS ORDERED: DEXTROSE 50% 50ML SYRINGE IV PRN (12:40)
[2024-02-12 12:59] LABS: CK-MB VALUE MASS < 1.0 NG/ML (<3.6)
[2024-02-12 13:00] LABS: CPK CREATINE PHOSPHOKINASE 39 U/L (34-145); MB/CK RELATIVE INDEX 2.56 (< OR =4)
[2024-02-12 14:42] LABS: MAGNESIUM LEVEL 2.1 MG/DL (1.8-2.4)
[2024-02-12 15:56] LABS: CALCIUM LEVEL 8.1 MG/DL (8.3-10.6); CREATININE FOR GFR 1.21 MG/DL (0.55-1.30); GLOMERULAR FILTRATION RATE 47.8 (>45)
[2024-02-12] MEDS: INSULIN LISPRO (NovoLOG) PER UNIT SC SCH ×2 (17:31→20:29)
[2024-02-12] MEDS: ACETAMINOPHEN TAB 650MG DOSE (2X325MG) PO PRN (21:40)
[2024-02-12] MEDS: ENOXAPARIN 150MG/ML SYRINGE SC SCH (22:44)
[2024-02-12] MEDS: NYSTATIN 100,000 UNITS/GM TOPICAL PWD 15GM TOP SCH (22:44)
[2024-02-13] VITALS (23 sets, daily range): BP systolic 117–159; BP diastolic 56–77; TEMP 96.8–98.1; O2SAT 87–100
[2024-02-13] MEDS ORDERED: MIRALAX *UNIT DOSE* 17GM PACKET PO PRN (05:45)
[2024-02-13] MEDS ORDERED: busPIRone 5 MG TAB PO PRN (05:45)
[2024-02-13] MEDS ORDERED: PILL CUTTER 1 EACH XX PRN (06:05)
[2024-02-13 06:48] LABS: BASO # 0.1 10^3/uL (0.0-0.2); BASO % 0.5 % (0.0-1.0); EOS # 0.2 10^3/uL (0.0-0.5); EOS % 1.5 % (0.0-3.0); HEMATOCRIT 45.6 % (36.0-47.0); HEMOGLOBIN 13.5 g/dl (12.0-15.5); LYMPH # 1.2 10^3/uL (1.5-5.0); LYMPH % 11.9 % (24.0-44.0); MEAN CORPUSCULAR HEMOGLOBIN 29.3 pg (27.0-33.0); MEAN CORPUSCULAR HGB CONC 29.6 g/dl (32.0-36.5); MEAN CORPUSCULAR VOLUME 98.9 fl (80.0-96.0); MONO # 0.7 10^3/uL (0.0-0.8); MONO % 7.2 % (2.0-8.0); NEUTROPHILS # 7.9 10^3/uL (1.5-8.5); NEUTROPHILS % 78.2 % (36.0-66.0); PLATELET COUNT, AUTOMATED 259 10^3/uL (150-450); RED BLOOD COUNT 4.61 10^6/uL (4.00-5.40); WHITE BLOOD COUNT 10.1 10^3/uL (4.0-10.0)
[2024-02-13 07:19] LABS: CALCIUM LEVEL 7.7 MG/DL (8.3-10.6); CREATININE FOR GFR 1.06 MG/DL (0.55-1.30); GLOMERULAR FILTRATION RATE 55.7 (>45); MAGNESIUM LEVEL 2.2 MG/DL (1.8-2.4); POTASSIUM SERUM 4.9 MMOL/L (3.5-5.1)
[2024-02-13] MEDS: medroxyPROGESTERone 5MG TABLET PO SCH (09:00)
[2024-02-13] MEDS: FERROUS SULFATE 325MG TAB PO SCH (09:00)
[2024-02-13] MEDS: MAGNESIUM OXIDE 400MG TAB (MAG-OX) PO SCH (09:00)
[2024-02-13] MEDS: PANTOPRAZOLE 40MG TAB (PROTONIX) PO SCH (09:00)
[2024-02-13] MEDS: VENLAFAXINE **XR** 37.5 MG CAPSULE PO SCH (09:01)
[2024-02-13] MEDS: CETIRIZINE (ZyrTEC) 10 MG TAB PO SCH (11:59)
[2024-02-13] MEDS ORDERED: ELIQ5TAB PO (15:24)
[2024-02-13] MEDS: AMIODARONE 200 MG TAB (PACERONE) PO SCH (16:55)
[2024-02-13] MEDS: BUDESONIDE 180MCG INHALER (PULMICORT FLEXHALER) INH SCH (20:00)
[2024-02-13] MEDS: predniSONE 20 MG TAB PO SCH (20:09)
[2024-02-13] MEDS: CEFDINIR 300 MG CAP (OMNICEF) PO SCH (20:10)
[2024-02-13] MEDS: AMITRIPTYLINE 25MG TABLET PO SCH (20:10)
[2024-02-13] MEDS: DOXYCYCLINE HYCLATE 100MG TABLET PO SCH (20:11)
[2024-02-14] VITALS (19 sets, daily range): BP systolic 124–177; BP diastolic 57–82; TEMP 97.1–98; O2SAT 85–98
[2024-02-14] MEDS: LEVALBUTEROL 1.25MG 0.5ML CONCENTRATE NEB INH SCH
[2024-02-14 05:50] LABS: BASO % 0.2 % (0.0-1.0); HEMATOCRIT 48.7 % (36.0-47.0); HEMOGLOBIN 14.4 g/dl (12.0-15.5); LYMPH # 0.6 10^3/uL (1.5-5.0); MEAN CORPUSCULAR HEMOGLOBIN 29.6 pg (27.0-33.0); MEAN CORPUSCULAR HGB CONC 29.6 g/dl (32.0-36.5); MONO # 0.3 10^3/uL (0.0-0.8); MONO % 2.3 % (2.0-8.0); NEUTROPHILS # 10.2 10^3/uL (1.5-8.5); NEUTROPHILS % 91.4 % (36.0-66.0); PLATELET COUNT, AUTOMATED 265 10^3/uL (150-450); RED BLOOD COUNT 4.87 10^6/uL (4.00-5.40); WHITE BLOOD COUNT 11.2 10^3/uL (4.0-10.0)
[2024-02-14 06:23] LABS: BLOOD UREA NITROGEN 30 MG/DL (9-23); CARBON DIOXIDE LEVEL > 40.0 MMOL/L (20-31); CHLORIDE LEVEL 101 MMOL/L (98-107); CREATININE FOR GFR 0.95 MG/DL (0.55-1.30); GLOMERULAR FILTRATION RATE > 60.0 (>45); GLUCOSE, FASTING 154 MG/DL (74-106); MAGNESIUM LEVEL 2.3 MG/DL (1.8-2.4); POTASSIUM SERUM 5.5 MMOL/L (3.5-5.1); SODIUM LEVEL 143 MMOL/L (136-145)
[2024-02-14] MEDS: cefTRIAXone SOD 2 GM in D5W MINI-BAG PLUS 50 ML IV SCH (06:26)
[2024-02-14] MEDS: FUROSEMIDE 40MG/4ML VIAL IV ONE (06:26)
[2024-02-14] MEDS: METOPROLOL TART 12.5 MG PER 1/2 TAB PO SCH (09:38)
[2024-02-14 10:17] LABS: ABG HCO3 41.6 MMOL/L (22.0-26.0); ABG PARTIAL PRESSURE O2 58.1 mmHg (75.0-100.0); ABG STANDARD HCO3 35.7 MMOL/L. (22.0-26.0); ABG TOTAL CO2 44.1 MMOL/L (23.0-31.0); ABG pH (ARTERIAL) 7.338 UNITS (7.350-7.450)
[2024-02-14 10:20] LABS: ABG PARTIAL PRESSURE CO2 79.3 mmHg (35.0-45.0)
[2024-02-14 16:40] LABS: BLOOD UREA NITROGEN 30 MG/DL (9-23); CALCIUM LEVEL 7.6 MG/DL (8.3-10.6); CARBON DIOXIDE LEVEL > 40.0 MMOL/L (20-31); CHLORIDE LEVEL 100 MMOL/L (98-107); CREATININE FOR GFR 1.04 MG/DL (0.55-1.30); GLUCOSE, FASTING 187 MG/DL (74-106); POTASSIUM SERUM 4.8 MMOL/L (3.5-5.1); SODIUM LEVEL 141 MMOL/L (136-145)
[2024-02-14] MEDS: SOD POLYSTYRENE SULFONATE SUSP 15GM 60ML UD PO ONE (16:42)
[2024-02-14] MEDS ORDERED: FUROSEMIDE 40MG/4ML VIAL IV SCH (17:00)
[2024-02-15] VITALS (16 sets, daily range): BP systolic 110–136; BP diastolic 59–80; TEMP 96.9–97.7; O2SAT 88–100
[2024-02-15 06:01] LABS: ABG BASE EXCESS 7.4 (-2.0-2.0); ABG HCO3 37.2 MMOL/L (22.0-26.0); ABG O2 SATURATION 96.6 % (95.0-99.0); ABG PARTIAL PRESSURE O2 94.3 mmHg (75.0-100.0); ABG STANDARD HCO3 31.2 MMOL/L. (22.0-26.0); ABG TOTAL CO2 39.8 MMOL/L (23.0-31.0); ABG pH (ARTERIAL) 7.275 UNITS (7.350-7.450)
[2024-02-15 06:41] LABS: BLOOD UREA NITROGEN 32 MG/DL (9-23); CALCIUM LEVEL 7.6 MG/DL (8.3-10.6); CARBON DIOXIDE LEVEL > 40.0 MMOL/L (20-31); CHLORIDE LEVEL 97 MMOL/L (98-107); CREATININE FOR GFR 1.08 MG/DL (0.55-1.30); GLOMERULAR FILTRATION RATE 54.5 (>45); GLUCOSE, FASTING 130 MG/DL (74-106); MAGNESIUM LEVEL 2.3 MG/DL (1.8-2.4); POTASSIUM SERUM 4.2 MMOL/L (3.5-5.1); SODIUM LEVEL 141 MMOL/L (136-145)
[2024-02-15] MEDS ORDERED: FUROSEMIDE 40MG/4ML VIAL IV ONE (06:45)
[2024-02-15] MEDS: FUROSEMIDE 40MG/4ML VIAL IV ONE (08:53)
[2024-02-15] MEDS: APIXABAN 5 MG TAB (ELIQUIS) PO SCH (08:54)
[2024-02-15] MEDS ORDERED: FUROSEMIDE 40 MG TAB PO SCH ×2 (09:00)
[2024-02-15 16:08] LABS: MYCOPLASMA PNEUMONIAE IgG 486 U/mL (0-99); MYCOPLASMA PNEUMONIAE IgM <770 U/mL (0-769)
[2024-02-16 03:59] VITALS: BP 139/59; TEMP 97.4; O2SAT 96
[2024-02-16 07:00] VITALS: O2SAT 88
[2024-02-16 07:37] LABS: BASO % 0.4 % (0.0-1.0); EOS # 0.2 10^3/uL (0.0-0.5); EOS % 2.2 % (0.0-3.0); HEMATOCRIT 45.2 % (36.0-47.0); HEMOGLOBIN 13.2 g/dl (12.0-15.5); LYMPH # 0.9 10^3/uL (1.5-5.0); LYMPH % 11.4 % (24.0-44.0); MEAN CORPUSCULAR HEMOGLOBIN 28.7 pg (27.0-33.0); MEAN CORPUSCULAR HGB CONC 29.2 g/dl (32.0-36.5); MEAN CORPUSCULAR VOLUME 98.3 fl (80.0-96.0); MONO # 0.6 10^3/uL (0.0-0.8); MONO % 7.9 % (2.0-8.0); NEUTROPHILS # 6.1 10^3/uL (1.5-8.5); NEUTROPHILS % 77.7 % (36.0-66.0); PLATELET COUNT, AUTOMATED 244 10^3/uL (150-450); WHITE BLOOD COUNT 7.9 10^3/uL (4.0-10.0)
[2024-02-16 08:00] VITALS: BP 118/61; TEMP 97.3; O2SAT 91; O2SAT 92
[2024-02-16 08:20] LABS: BLOOD UREA NITROGEN 30 MG/DL (9-23); CALCIUM LEVEL 7.8 MG/DL (8.3-10.6); CARBON DIOXIDE LEVEL > 40.0 MMOL/L (20-31); CHLORIDE LEVEL 96 MMOL/L (98-107); CREATININE FOR GFR 0.93 MG/DL (0.55-1.30); GLOMERULAR FILTRATION RATE > 60.0 (>45); GLUCOSE, FASTING 138 MG/DL (74-106); MAGNESIUM LEVEL 2.2 MG/DL (1.8-2.4); SODIUM LEVEL 144 MMOL/L (136-145)
[2024-02-16 09:00] VITALS: O2SAT 89
[2024-02-16] MEDS: FUROSEMIDE 40 MG TAB PO SCH (09:00)
[2024-02-16 09:03] VITALS: BP 128/78
[2024-02-16] MEDS ORDERED: AMIO200T49 PO (09:46)
[2024-02-16] MEDS ORDERED: CEFD1CAP9 PO (10:12)
[2024-02-16] MEDS ORDERED: DOXY-440 PO (10:12)
[2024-02-16] MEDS ORDERED: METO1TAB87 PO (11:10)
[2024-02-16] MEDS ORDERED: ROZE8TAB16 PO (12:11)
[2024-02-16] MEDS ORDERED: hydrOXYzine 50 MG TAB PO SCH (21:00)
[2024-02-18 17:10] LABS: BODY FLUID CULTURE Not indicated. (.); LEGIONELLA ANTIGEN URINE Negative (Negative); ORGANISM ID Not indicated. (.); SPECIMEN SOURCE Urine (.); URINE STREP PNEUMONIAE ANTIGEN Negative (Negative)
== END 2024-02-16 12:51 | disposition home health service (06) | DRG 201 ==
LOC: EDBD 08:47 → M ED 08:47 → M ED INP 13:07 → M PCU 14:41
PROVIDERS: ADMIT Student in an Organized Health Care Education/Training Program; ATTEND Student in an Organized Health Care Education/Training Program
PROC: B246ZZZ Ultrasonography of Right and Left Heart (ICD-10-PCS; principal; 2024-02-13)
DX: I48.0 Paroxysmal atrial fibrillation (principal); I50.33 Acute on chronic diastolic (congestive) heart failure; J96.11 Chronic respiratory failure with hypoxia; J18.9 Pneumonia, unspecified organism; I11.0 Hypertensive heart disease with heart failure; I27.20 Pulmonary hypertension, unspecified; I50.32 Chronic diastolic (congestive) heart failure; Z99.81 Dependence on supplemental oxygen; I50.812 Chronic right heart failure; D68.59 Other primary thrombophilia; E66.2 Morbid (severe) obesity with alveolar hypoventilation; E87.5 Hyperkalemia; Z68.44 Body mass index [BMI] 60.0-69.9, adult; E78.5 Hyperlipidemia, unspecified; E11.9 Type 2 diabetes mellitus without complications; F32.A Depression, unspecified; F41.9 Anxiety disorder, unspecified; Z79.84 Long term (current) use of oral hypoglycemic drugs; Z79.899 Other long term (current) drug therapy; Z86.711 Personal history of pulmonary embolism; E04.1 Nontoxic single thyroid nodule; J21.9 Acute bronchiolitis, unspecified

== ENCOUNTER 2024-04-12 14:12 | Inpatient (IN) | payer MEDICAID, OTHER ==
[~2024-04-12] VITALS: Ht 172.7 cm; Wt 192.7 kg
[~2024-04-12 14:12] MED LIST changes: +ALBU8.5H INH; +AMIO200T49 PO; +ANOR1AER INH; -ANOR1AER PO; +CEFD1CAP9 PO; +DOCU100C16 PO; +DOXY-440 PO; +ELIQ5TAB PO; +FERR325T19 PO; +METO1TAB32 PO; +METO1TAB7 PO; +ROZE8TAB16 PO
[2024-04-12] MEDS ORDERED: MORPHINE 2 MG/ML 1ML VIAL IV PRN (15:00)
[2024-04-12 16:42] LABS: BASO # 0.1 10^3/uL (0.0-0.2); BASO % 0.5 % (0.0-1.0); EOS # 0.1 10^3/uL (0.0-0.5); EOS % 0.4 % (0.0-3.0); HEMATOCRIT 49.2 % (36.0-47.0); HEMOGLOBIN 14.3 g/dl (12.0-15.5); LYMPH # 0.9 10^3/uL (1.5-5.0); LYMPH % 5.2 % (24.0-44.0); MEAN CORPUSCULAR HEMOGLOBIN 30.2 pg (27.0-33.0); MEAN CORPUSCULAR HGB CONC 29.1 g/dl (32.0-36.5); MEAN CORPUSCULAR VOLUME 103.8 fl (80.0-96.0); MONO # 0.8 10^3/uL (0.0-0.8); MONO % 4.9 % (2.0-8.0); NEUTROPHILS # 14.6 10^3/uL (1.5-8.5); NEUTROPHILS % 86.8 % (36.0-66.0); PLATELET COUNT, AUTOMATED 327 10^3/uL (150-450); RED BLOOD COUNT 4.74 10^6/uL (4.00-5.40); WHITE BLOOD COUNT 16.8 10^3/uL (4.0-10.0)
[2024-04-12] MEDS ORDERED: BUSP10TA79 PO (16:51)
[2024-04-12] MEDS ORDERED: ELIQ5TAB PO (16:51)
[2024-04-12] MEDS ORDERED: AMIO200T49 PO (16:51)
[2024-04-12] MEDS ORDERED: HOME MED LIST COMPLETE! XX SCH (16:55)
[2024-04-12] MEDS ORDERED: PERCOCET 5MG/325MG TAB PO PRN (16:55)
[2024-04-12] MEDS ORDERED: MAALOX 30 ML SUSP *UDC PO PRN (16:55)
[2024-04-12] MEDS ORDERED: MOM 30ML SUSPENSION UDC PO PRN (16:55)
[2024-04-12 17:12] LABS: BLOOD UREA NITROGEN 35 MG/DL (9-23); CARBON DIOXIDE LEVEL > 40.0 MMOL/L (20-31); CHLORIDE LEVEL 97 MMOL/L (98-107); CREATININE FOR GFR 1.19 MG/DL (0.55-1.30); GLOMERULAR FILTRATION RATE 48.8 (>45); GLUCOSE, FASTING 144 MG/DL (74-106); POTASSIUM SERUM 5.9 MMOL/L (3.5-5.1); SODIUM LEVEL 140 MMOL/L (136-145)
[2024-04-12 17:15] LABS: VENOUS BASE EXCESS 4.7 (-2.0-2.0); VENOUS HCO3 34.5 MMOL/L (23.0-27.0); VENOUS O2 SATURATION 99.3 % (60.0-80.0); VENOUS PARTIAL PRESSURE CO2 76.5 mmHg (38.0-50.0); VENOUS PARTIAL PRESSURE O2 183.6 mmHg (30.0-50.0); VENOUS PH 7.272 UNITS (7.330-7.430); VENOUS STANDARD HCO3 28.7 MMOL/L; VENOUS TOTAL CO2 36.8 MMOL/L (24.0-28.0)
[2024-04-12 17:19] LABS: INR 1.3; PROTHROMBIN TIME 15.8 SECONDS (12.5-14.5)
[2024-04-12] MEDS: ALBUTEROL SULFATE 2.5MG/0.5ML INH NEB SOLN NEB ONE (18:03)
[2024-04-12] MEDS: AMIODARONE 200 MG TAB (PACERONE) PO SCH (19:03)
[2024-04-12] MEDS: ONDANSETRON 4MG 2ML VIAL IV ONE (19:03)
[2024-04-12] MEDS: MORPHINE 2 MG/ML 1ML VIAL IV PRN (19:04)
[2024-04-12] MEDS: DEXTROSE 50% 50ML SYRINGE IV STA (19:42)
[2024-04-12] MEDS: HumuLIN R (REGULAR) INSULIN (NovoLIN R) **100U/ML** PER UNIT IV STA (19:42)
[2024-04-12 21:30] LABS: ABG BASE EXCESS 7.8 (-2.0-2.0); ABG HCO3 45.9 MMOL/L (22.0-26.0); ABG O2 SATURATION 87.3 % (95.0-99.0); ABG PARTIAL PRESSURE O2 71.6 mmHg (75.0-100.0); ABG STANDARD HCO3 31.3 MMOL/L. (22.0-26.0); ABG TOTAL CO2 51.5 MMOL/L (23.0-31.0)
[2024-04-12] MEDS: IPRATROPIUM 0.5MG/ALBUTEROL 2.5MG INH SOL UD 3ML (DUONEB) NEB PRN (21:30)
[2024-04-12 21:33] LABS: ABG pH (ARTERIAL) 7.022 UNITS (7.350-7.450)
[2024-04-12] MEDS ORDERED: ROCURONIUM BROMIDE 50MG/5ML VIAL IV SCH (22:45)
[2024-04-12] MEDS: ETOMIDATE INJ 20MG/10ML VIAL IV STA (22:45)
[2024-04-12 22:55] VITALS: O2SAT 98
[2024-04-12] MEDS: DOCUSATE SODIUM 100MG CAPSULE PO SCH (23:00)
[2024-04-12] MEDS: medroxyPROGESTERone 5MG TABLET PO SCH (23:00)
[2024-04-12] MEDS: busPIRone 10 MG TAB PO SCH (23:00)
[2024-04-12] MEDS: FERROUS SULFATE 325MG TAB PO SCH (23:00)
[2024-04-12] MEDS: AMITRIPTYLINE 25MG TABLET PO SCH (23:00)
[2024-04-12 23:01] VITALS: BP 171/78; TEMP 96.3; O2SAT 98
[2024-04-12 23:15] VITALS: BP 163/96; O2SAT 97
[2024-04-12] MEDS: propofoL 1,000 MG in IV 1 EA IV SCH (23:25)
[2024-04-12] MEDS: METOPROLOL TART 12.5 MG PER 1/2 TAB PO SCH (23:34)
[2024-04-12] MEDS: MAGNESIUM OXIDE 400MG TAB (MAG-OX) PO SCH (23:34)
[2024-04-12] MEDS ORDERED: FENTANYL DRIP LOCK BOX KEY 1 EACH XX PRN (23:40)
[2024-04-12 23:45] VITALS: BP 134/88; O2SAT 100
[2024-04-13] VITALS (89 sets, daily range): BP systolic 61–135; BP diastolic 29–112; TEMP 97.5–100.6; O2SAT 90–99
[2024-04-13] MEDS: fentaNYL CITRATE/NaCl 1,000 MCG in IV 1 EA IV SCH (00:05)
[2024-04-13 00:23] LABS: ABG BASE EXCESS 7.4 (-2.0-2.0); ABG HCO3 35.9 MMOL/L (22.0-26.0); ABG O2 SATURATION 99.5 % (95.0-99.0); ABG PARTIAL PRESSURE O2 195.9 mmHg (75.0-100.0); ABG STANDARD HCO3 31.3 MMOL/L. (22.0-26.0); ABG TOTAL CO2 38.1 MMOL/L (23.0-31.0); ABG pH (ARTERIAL) 7.329 UNITS (7.350-7.450)
[2024-04-13 00:26] LABS: ABG PARTIAL PRESSURE CO2 69.9 mmHg (35.0-45.0)
[2024-04-13] MEDS: PIPERACILLIN/TAZOBACTAM SOD 4.5 GM in D5W MINI-BAG PLUS 50 ML IV SCH (00:38)
[2024-04-13] MEDS: MIDAZOLAM 100MG/100ML-0.9%NACL 100 MG in IV 1 EA IV SCH (01:29)
[2024-04-13] MEDS: NOREPINEPHRINE 4MG IN D5 250ML 4 MG in IV 1 EA IV SCH (02:00)
[2024-04-13] MEDS: VANCOMYCIN HCL 1,000 MG, VIAL MATE ADAPTER 1 EACH in D5W 250 ML IV ONE ×2 (03:05→04:15)
[2024-04-13 03:09] LABS: APPEARANCE, URINE HAZY (CLEAR); BACTERIA, URINE AUTO NEGATIVE (NEGATIVE); BILIRUBIN, URINE AUTO NEGATIVE (NEGATIVE); BLOOD, URINE BLOOD 1+ (NEGATIVE); COLOR, URINE AMBER (YELLOW); GLUCOSE, URINE (UA) AUTO NEGATIVE (NEGATIVE); KETONE, URINE AUTO NEGATIVE (NEGATIVE); LEUKOCYTE ESTERASE, URINE AUTO TRACE (NEGATIVE); MUCUS, URINE SMALL (NEGATIVE); NITRITE, URINE AUTO NEGATIVE (NEGATIVE); PROTEIN, URINE AUTO 1+ mg/dL (NEGATIVE); RBC, URINE AUTO 23 /HPF (0-3); SQUAMOUS EPITHELIAL CELL UR AU 0 /HPF (0-6); UROBILINOGEN, URINE AUTO 0.2 mg/dL (0.0-2.0); WBC, URINE AUTO 16 /HPF (0-3)
[2024-04-13 06:47] LABS: BASO % 0.2 % (0.0-1.0); HEMATOCRIT 40.9 % (36.0-47.0); LYMPH # 0.8 10^3/uL (1.5-5.0); LYMPH % 4.7 % (24.0-44.0); MEAN CORPUSCULAR HGB CONC 29.6 g/dl (32.0-36.5); MEAN CORPUSCULAR VOLUME 101.5 fl (80.0-96.0); MONO # 1.2 10^3/uL (0.0-0.8); MONO % 7.1 % (2.0-8.0); NEUTROPHILS # 14.4 10^3/uL (1.5-8.5); NEUTROPHILS % 87.3 % (36.0-66.0); PLATELET COUNT, AUTOMATED 286 10^3/uL (150-450); RED BLOOD COUNT 4.03 10^6/uL (4.00-5.40); WHITE BLOOD COUNT 16.5 10^3/uL (4.0-10.0)
[2024-04-13 06:50] LABS: HEMOGLOBIN 12.1 g/dl (12.0-15.5)
[2024-04-13 06:55] LABS: CALCIUM LEVEL 7.6 MG/DL (8.3-10.6); CREATININE FOR GFR 1.34 MG/DL (0.55-1.30); GLOMERULAR FILTRATION RATE 42.5 (>45); MAGNESIUM LEVEL 2.3 MG/DL (1.8-2.4); POTASSIUM SERUM 5.4 MMOL/L (3.5-5.1)
[2024-04-13] MEDS: VENLAFAXINE **XR** 37.5 MG CAPSULE PO SCH (08:00)
[2024-04-13] MEDS: MIRALAX *UNIT DOSE* 17GM PACKET PO SCH (09:00)
[2024-04-13] MEDS ORDERED: PANTOPRAZOLE 40MG TAB (PROTONIX) PO SCH (09:00)
[2024-04-13] MEDS ORDERED: FUROSEMIDE 40 MG TAB PO SCH (09:00)
[2024-04-13] MEDS: PANTOPRAZOLE 40MG VIAL IV SCH (09:58)
[2024-04-13] MEDS: FUROSEMIDE 40MG/4ML VIAL IV SCH (09:58)
[2024-04-13] MEDS: CETIRIZINE (ZyrTEC) 10 MG TAB PO SCH (09:58)
[2024-04-13] MEDS: ENOXAPARIN 60MG/0.6ML SYRINGE (J1650 PER 10MG) SC SCH (09:59)
[2024-04-13 10:08] LABS: ABG BASE EXCESS 10.2 (-2.0-2.0); ABG HCO3 36.6 MMOL/L (22.0-26.0); ABG O2 SATURATION 97.4 % (95.0-99.0); ABG PARTIAL PRESSURE CO2 56.9 mmHg (35.0-45.0); ABG PARTIAL PRESSURE O2 91.5 mmHg (75.0-100.0); ABG TOTAL CO2 38.3 MMOL/L (23.0-31.0); ABG pH (ARTERIAL) 7.426 UNITS (7.350-7.450)
[2024-04-13] MEDS: VANCOMYCIN HCL 1,000 MG, VIAL MATE ADAPTER 1 EACH in NS 250 ML IV SCH (11:02)
[2024-04-13] MEDS: ACETAMINOPHEN TAB 650MG DOSE (2X325MG) PO PRN (17:34)
[2024-04-13 19:19] LABS: BLOOD UREA NITROGEN 42 MG/DL (9-23); CALCIUM LEVEL 7.2 MG/DL (8.3-10.6); CARBON DIOXIDE LEVEL > 40.0 MMOL/L (20-31); CHLORIDE LEVEL 96 MMOL/L (98-107); CREATININE FOR GFR 1.47 MG/DL (0.55-1.30); GLOMERULAR FILTRATION RATE 38.2 (>45); GLUCOSE, FASTING 129 MG/DL (74-106); MAGNESIUM LEVEL 2.3 MG/DL (1.8-2.4); POTASSIUM SERUM 4.4 MMOL/L (3.5-5.1); SODIUM LEVEL 138 MMOL/L (136-145)
[2024-04-13] MEDS: FUROSEMIDE 40MG/4ML VIAL IV ONE (20:55)
[2024-04-14] VITALS (25 sets, daily range): BP systolic 86–118; BP diastolic 46–63; TEMP 99.1–101.1; O2SAT 90–98
[2024-04-14 05:08] LABS: BASO % 0.2 % (0.0-1.0); EOS # 0.1 10^3/uL (0.0-0.5); EOS % 0.7 % (0.0-3.0); HEMOGLOBIN 11.1 g/dl (12.0-15.5); LYMPH # 0.9 10^3/uL (1.5-5.0); LYMPH % 6.5 % (24.0-44.0); MEAN CORPUSCULAR HEMOGLOBIN 29.5 pg (27.0-33.0); MEAN CORPUSCULAR HGB CONC 29.2 g/dl (32.0-36.5); MEAN CORPUSCULAR VOLUME 101.1 fl (80.0-96.0); MONO # 0.9 10^3/uL (0.0-0.8); MONO % 6.5 % (2.0-8.0); NEUTROPHILS # 12.3 10^3/uL (1.5-8.5); NEUTROPHILS % 85.5 % (36.0-66.0); PLATELET COUNT, AUTOMATED 250 10^3/uL (150-450); RED BLOOD COUNT 3.76 10^6/uL (4.00-5.40); WHITE BLOOD COUNT 14.3 10^3/uL (4.0-10.0)
[2024-04-14 05:26] LABS: CALCIUM LEVEL 6.8 MG/DL (8.3-10.6); CREATININE FOR GFR 1.52 MG/DL (0.55-1.30); GLOMERULAR FILTRATION RATE 36.8 (>45); MAGNESIUM LEVEL 2.4 MG/DL (1.8-2.4); POTASSIUM SERUM 4.6 MMOL/L (3.5-5.1)
[2024-04-14 08:02] LABS: PHOSPHORUS LEVEL 3.6 MG/DL (2.4-5.1)
[2024-04-14] MEDS ORDERED: ROCURONIUM BROMIDE 50MG/5ML VIAL As Ordered ONE (10:46)
[2024-04-14] MEDS ORDERED: ONDANSETRON 4MG 2ML VIAL As Ordered ONE (10:46)
[2024-04-14] MEDS ORDERED: LIDOCAINE 2% 100MG/5ML SDV (FOR ANES.) As Ordered ONE (10:46)
[2024-04-14] MEDS ORDERED: propofoL 200 MG/20 ML VIAL As Ordered ONE (10:46)
[2024-04-14] MEDS ORDERED: MIDAZOLAM INJ 2MG/2ML VIAL As Ordered ONE (10:47)
[2024-04-14] MEDS ORDERED: fentaNYL 250 MCG/5 ML INJECTION As Ordered ONE (10:47)
[2024-04-14] MEDS ORDERED: dexmedeTOMIDine (4MCG/ML)200MCG/50ML BTL (PRECEDEX) As Ordered ONE (10:50)
[2024-04-14] MEDS ORDERED: PHENYLEPHRINE 10MG/ML 1ML VIAL As Ordered ONE (11:45)
[2024-04-14] MEDS: ceFAZolin 2 GM/D5W 50 ML IV BAG As Ordered ONE (11:50)
[2024-04-14] MEDS: TRANEXAMIC ACID 100 MG/ML 10ML VIAL As Ordered ONE (11:50)
[2024-04-14] MEDS: ceFAZolin 1GM VIAL As Ordered ONE (11:50)
[2024-04-14] MEDS ORDERED: ACETAMINOPHEN 1000MG 100ML IV BAG As Ordered ONE (12:16)
[2024-04-14] MEDS ORDERED: LACRILUBE (AKWA TEARS) OPHTH OINT 3.5GM As Ordered ONE (12:16)
[2024-04-14] MEDS: VANCOMYCIN 1000MG/20ML VIAL As Ordered ONE (12:20)
[2024-04-14] MEDS ORDERED: ePHEDrine SULFATE 25 MG/5 ML(5MG/ML) SYRINGE As Ordered ONE (12:33)
[2024-04-14] MEDS: BACITRACIN OINTMENT 30GM TUBE As Ordered ONE (14:05)
[2024-04-14] MEDS ORDERED: MAALOX 30 ML SUSP *UDC NG PRN (16:55)
[2024-04-14] MEDS ORDERED: MOM 30ML SUSPENSION UDC NG PRN (16:55)
[2024-04-14] MEDS: AMIODARONE 200 MG TAB (PACERONE) NG SCH (17:32)
[2024-04-14] MEDS: METOPROLOL TART 12.5 MG PER 1/2 TAB NG SCH (20:07)
[2024-04-14] MEDS: medroxyPROGESTERone 5MG TABLET NG SCH (20:24)
[2024-04-14] MEDS: ceFAZolin SOD 2 GM in IV 1 EA IV SCH (20:24)
[2024-04-14] MEDS: busPIRone 10 MG TAB NG SCH (20:25)
[2024-04-14] MEDS: DOCUSATE SOD LIQ 100MG/10ML UDC GT SCH (20:25)
[2024-04-14] MEDS: MAGNESIUM OXIDE 400MG TAB (MAG-OX) NG SCH (20:25)
[2024-04-14] MEDS: AMITRIPTYLINE 25MG TABLET NG SCH (20:26)
[2024-04-15] VITALS (62 sets, daily range): BP systolic 83–121; BP diastolic 50–67; TEMP 99.9–100.8; O2SAT 87–96
[2024-04-15 05:17] LABS: BASO % 0.1 % (0.0-1.0); HEMATOCRIT 34.1 % (36.0-47.0); HEMOGLOBIN 9.9 g/dl (12.0-15.5); LYMPH # 0.5 10^3/uL (1.5-5.0); MEAN CORPUSCULAR HEMOGLOBIN 29.7 pg (27.0-33.0); MEAN CORPUSCULAR VOLUME 102.4 fl (80.0-96.0); MONO # 0.7 10^3/uL (0.0-0.8); MONO % 4.7 % (2.0-8.0); NEUTROPHILS # 14.2 10^3/uL (1.5-8.5); NEUTROPHILS % 91.6 % (36.0-66.0); PLATELET COUNT, AUTOMATED 253 10^3/uL (150-450); RED BLOOD COUNT 3.33 10^6/uL (4.00-5.40); WHITE BLOOD COUNT 15.5 10^3/uL (4.0-10.0)
[2024-04-15 05:43] LABS: CREATININE FOR GFR 1.76 MG/DL (0.55-1.30); MAGNESIUM LEVEL 2.6 MG/DL (1.8-2.4); PHOSPHORUS LEVEL 5.6 MG/DL (2.4-5.1); POTASSIUM SERUM 5.3 MMOL/L (3.5-5.1)
[2024-04-15] MEDS ORDERED: SENNA 8.6 MG TAB (SENOKOT) PO PRN (07:50)
[2024-04-15] MEDS: MIRALAX *UNIT DOSE* 17GM PACKET NG SCH (09:00)
[2024-04-15] MEDS: CETIRIZINE (ZyrTEC) 10 MG TAB NG SCH (09:01)
[2024-04-15] MEDS: ENOXAPARIN 60MG/0.6ML SYRINGE (J1650 PER 10MG) SC SCH (11:06)
[2024-04-15] MEDS ORDERED: NOREPINEPHRINE 4MG IN D5 250ML 4 MG in IV 1 EA IV SCH (13:10)
[2024-04-15] MEDS: NOREPINEPHRINE 4MG IN D5 250ML 4 MG in IV 1 EA IV SCH (13:10)
[2024-04-15] MEDS: PATIROMER SORBITEX CALCIUM 8.4 GM POWDER PACKET (VELTASSA) PO SCH (13:32)
[2024-04-15] MEDS: SODIUM CHLORIDE 0.9% INJ 10 ML SYR IV SCH (17:57)
[2024-04-15 18:29] LABS: CALCIUM LEVEL 6.3 MG/DL (8.3-10.6); CREATININE FOR GFR 1.67 MG/DL (0.55-1.30); POTASSIUM SERUM 4.7 MMOL/L (3.5-5.1)
[2024-04-16] VITALS (97 sets, daily range): BP systolic 86–151; BP diastolic 50–66; TEMP 99.7–100.4; O2SAT 86–97
[2024-04-16 05:42] LABS: BASO % 0.1 % (0.0-1.0); EOS # 0.1 10^3/uL (0.0-0.5); EOS % 0.6 % (0.0-3.0); HEMATOCRIT 33.1 % (36.0-47.0); HEMOGLOBIN 9.4 g/dl (12.0-15.5); LYMPH # 1.1 10^3/uL (1.5-5.0); LYMPH % 7.9 % (24.0-44.0); MEAN CORPUSCULAR HEMOGLOBIN 29.8 pg (27.0-33.0); MEAN CORPUSCULAR HGB CONC 28.4 g/dl (32.0-36.5); MEAN CORPUSCULAR VOLUME 105.1 fl (80.0-96.0); MONO # 1.1 10^3/uL (0.0-0.8); MONO % 7.8 % (2.0-8.0); NEUTROPHILS # 11.4 10^3/uL (1.5-8.5); NEUTROPHILS % 82.8 % (36.0-66.0); PLATELET COUNT, AUTOMATED 316 10^3/uL (150-450); RED BLOOD COUNT 3.15 10^6/uL (4.00-5.40); WHITE BLOOD COUNT 13.8 10^3/uL (4.0-10.0)
[2024-04-16 06:19] LABS: CALCIUM LEVEL 6.1 MG/DL (8.3-10.6); CREATININE FOR GFR 1.59 MG/DL (0.55-1.30); GLOMERULAR FILTRATION RATE 34.9 (>45); MAGNESIUM LEVEL 3.2 MG/DL (1.8-2.4); PHOSPHORUS LEVEL 6.3 MG/DL (2.4-5.1); POTASSIUM SERUM 5.1 MMOL/L (3.5-5.1)
[2024-04-16] MEDS: FUROSEMIDE injection 250 MG in D5W 225 ML IV SCH (11:16)
[2024-04-16] MEDS: propofoL 1,000 MG in IV 1 EA IV SCH (13:00)
[2024-04-17] VITALS (95 sets, daily range): BP systolic 77–121; BP diastolic 41–65; TEMP 100.4–101.5; O2SAT 86–95
[2024-04-17 05:13] LABS: BASO # 0.1 10^3/uL (0.0-0.2); BASO % 0.4 % (0.0-1.0); EOS # 0.4 10^3/uL (0.0-0.5); EOS % 2.6 % (0.0-3.0); LYMPH # 0.7 10^3/uL (1.5-5.0); LYMPH % 5.4 % (24.0-44.0); MEAN CORPUSCULAR HEMOGLOBIN 30.2 pg (27.0-33.0); MONO # 1.1 10^3/uL (0.0-0.8); MONO % 8.2 % (2.0-8.0); NEUTROPHILS # 11.4 10^3/uL (1.5-8.5); NEUTROPHILS % 82.5 % (36.0-66.0); PLATELET COUNT, AUTOMATED 297 10^3/uL (150-450); RED BLOOD COUNT 2.98 10^6/uL (4.00-5.40); WHITE BLOOD COUNT 13.8 10^3/uL (4.0-10.0)
[2024-04-17 06:01] LABS: BLOOD UREA NITROGEN 44 MG/DL (9-23); CALCIUM LEVEL 6.3 MG/DL (8.3-10.6); CARBON DIOXIDE LEVEL > 40.0 MMOL/L (20-31); CHLORIDE LEVEL 97 MMOL/L (98-107); GLOMERULAR FILTRATION RATE 48.3 (>45); GLUCOSE, FASTING 153 MG/DL (74-106); MAGNESIUM LEVEL 2.8 MG/DL (1.8-2.4); PHOSPHORUS LEVEL 3.4 MG/DL (2.4-5.1); POTASSIUM SERUM 4.6 MMOL/L (3.5-5.1); SODIUM LEVEL 141 MMOL/L (136-145)
[2024-04-17 06:43] LABS: ABG BASE EXCESS 10.9 (-2.0-2.0); ABG HCO3 37.7 MMOL/L (22.0-26.0); ABG O2 SATURATION 90.4 % (95.0-99.0); ABG PARTIAL PRESSURE O2 61.9 mmHg (75.0-100.0); ABG STANDARD HCO3 34.5 MMOL/L. (22.0-26.0); ABG TOTAL CO2 39.6 MMOL/L (23.0-31.0); ABG pH (ARTERIAL) 7.392 UNITS (7.350-7.450)
[2024-04-17 06:45] LABS: ABG PARTIAL PRESSURE CO2 63.4 mmHg (35.0-45.0)
[2024-04-17] MEDS: SENNA 8.6 MG TAB (SENOKOT) PO SCH (09:29)
[2024-04-17] MEDS: IPRATROPIUM 0.5MG/ALBUTEROL 2.5MG INH SOL UD 3ML (DUONEB) NEB SCH (10:13)
[2024-04-17] MEDS: MIDAZOLAM INJ 2MG/2ML VIAL IV PRN (11:13)
[2024-04-17] MEDS: MIDAZOLAM 100MG/100ML-0.9%NACL 100 MG in IV 1 EA IV SCH (11:19)
[2024-04-17] MEDS: BUDESONIDE 0.5 MG/2 ML INHALATION SUSPENSION NEB SCH (13:38)
[2024-04-17] MEDS: NYSTATIN 100,000 UNITS/GM TOPICAL PWD 15GM TOP PRN (16:59)
[2024-04-17] MEDS: ACETAMINOPHEN TAB 650MG DOSE (2X325MG) NG PRN (17:00)
[2024-04-17] MEDS: ALBUTEROL SULFATE 2.5MG/0.5ML INH NEB SOLN NEB SCH (19:07)
[2024-04-17] MEDS: SODIUM CHLORIDE HYPERTONIC 3% 4ML NEB SOL INH SCH (19:07)
[2024-04-17] MEDS ORDERED: ENOXAPARIN 60MG/0.6ML SYRINGE (J1650 PER 10MG) SC SCH (21:00)
[2024-04-17] MEDS: ACETAMINOPHEN *IV* 1,000 MG in IV 1 EA IV ONE (21:36)
[2024-04-18] VITALS (94 sets, daily range): BP systolic 84–109; BP diastolic 50–65; TEMP 100.6–101.8; O2SAT 86–100
[2024-04-18] MEDS: KETOROLAC 30 MG/ML 1ML VIAL IV ONE (00:20)
[2024-04-18 05:37] LABS: ABG BASE EXCESS 9.6 (-2.0-2.0); ABG HCO3 35.9 MMOL/L (22.0-26.0); ABG O2 SATURATION 94.2 % (95.0-99.0); ABG PARTIAL PRESSURE CO2 59.7 mmHg (35.0-45.0); ABG PARTIAL PRESSURE O2 74.2 mmHg (75.0-100.0); ABG STANDARD HCO3 33.2 MMOL/L. (22.0-26.0); ABG TOTAL CO2 37.7 MMOL/L (23.0-31.0); ABG pH (ARTERIAL) 7.397 UNITS (7.350-7.450)
[2024-04-18 06:01] LABS: BASO # 0.1 10^3/uL (0.0-0.2); BASO % 0.4 % (0.0-1.0); EOS # 0.3 10^3/uL (0.0-0.5); EOS % 2.1 % (0.0-3.0); HEMATOCRIT 29.2 % (36.0-47.0); HEMOGLOBIN 8.4 g/dl (12.0-15.5); LYMPH # 1.1 10^3/uL (1.5-5.0); LYMPH % 8.9 % (24.0-44.0); MEAN CORPUSCULAR HEMOGLOBIN 29.6 pg (27.0-33.0); MEAN CORPUSCULAR HGB CONC 28.8 g/dl (32.0-36.5); MEAN CORPUSCULAR VOLUME 102.8 fl (80.0-96.0); NEUTROPHILS # 9.7 10^3/uL (1.5-8.5); NEUTROPHILS % 79.4 % (36.0-66.0); PLATELET COUNT, AUTOMATED 303 10^3/uL (150-450); RED BLOOD COUNT 2.84 10^6/uL (4.00-5.40); WHITE BLOOD COUNT 12.2 10^3/uL (4.0-10.0)
[2024-04-18 06:25] LABS: BLOOD UREA NITROGEN 46 MG/DL (9-23); CALCIUM LEVEL 6.1 MG/DL (8.3-10.6); CARBON DIOXIDE LEVEL > 40.0 MMOL/L (20-31); CHLORIDE LEVEL 96 MMOL/L (98-107); CREATININE FOR GFR 1.43 MG/DL (0.55-1.30); GLOMERULAR FILTRATION RATE 39.5 (>45); GLUCOSE, FASTING 167 MG/DL (74-106); MAGNESIUM LEVEL 2.8 MG/DL (1.8-2.4); POTASSIUM SERUM 4.5 MMOL/L (3.5-5.1); SODIUM LEVEL 141 MMOL/L (136-145)
[2024-04-18] MEDS: LACTULOSE 20GM/30ML SYRUP UDC PO SCH (09:09)
[2024-04-18 09:18] LABS: PROCALCITONIN 0.25 ng/ml
[2024-04-18] MEDS: fentaNYL 100 MCG/2 ML INJECTION IV PRN (10:21)
[2024-04-18] MEDS: NOREPINEPHRINE BITARTRATE 16 MG in D5W 484 ML IV SCH (11:09)
[2024-04-18] MEDS: ENOXAPARIN 150MG/ML SYRINGE SC SCH (11:09)
[2024-04-18] MEDS: ENOXAPARIN 60MG/0.6ML SYRINGE (J1650 PER 10MG) SC SCH (20:39)
[2024-04-19] VITALS (30 sets, daily range): BP systolic 81–125; BP diastolic 47–64; TEMP 100–101.3; O2SAT 87–96
[2024-04-19 05:04] LABS: BASO % 0.3 % (0.0-1.0); EOS # 0.2 10^3/uL (0.0-0.5); EOS % 1.8 % (0.0-3.0); HEMATOCRIT 30.9 % (36.0-47.0); HEMOGLOBIN 8.8 g/dl (12.0-15.5); LYMPH # 0.9 10^3/uL (1.5-5.0); LYMPH % 7.4 % (24.0-44.0); MEAN CORPUSCULAR HEMOGLOBIN 29.8 pg (27.0-33.0); MEAN CORPUSCULAR HGB CONC 28.5 g/dl (32.0-36.5); MEAN CORPUSCULAR VOLUME 104.7 fl (80.0-96.0); MONO # 0.9 10^3/uL (0.0-0.8); NEUTROPHILS # 9.9 10^3/uL (1.5-8.5); PLATELET COUNT, AUTOMATED 364 10^3/uL (150-450); RED BLOOD COUNT 2.95 10^6/uL (4.00-5.40); WHITE BLOOD COUNT 12.1 10^3/uL (4.0-10.0)
[2024-04-19 05:17] LABS: ALBUMIN 2.2 G/DL (3.2-5.2); ALKALINE PHOSPHATASE 39 U/L (46-116); ALT/SGPT 18 U/L (7.0-40); AST/SGOT 18 U/L (<34); BLOOD UREA NITROGEN 44 MG/DL (9-23); CALCIUM LEVEL 6.6 MG/DL (8.3-10.6); CARBON DIOXIDE LEVEL > 40.0 MMOL/L (20-31); CHLORIDE LEVEL 97 MMOL/L (98-107); CREATININE FOR GFR 1.32 MG/DL (0.55-1.30); GLOMERULAR FILTRATION RATE 43.3 (>45); GLUCOSE, FASTING 154 MG/DL (74-106); MAGNESIUM LEVEL 2.8 MG/DL (1.8-2.4); POTASSIUM SERUM 4.3 MMOL/L (3.5-5.1); SODIUM LEVEL 142 MMOL/L (136-145); TOTAL PROTEIN 6.1 G/DL (5.7-8.2)
[2024-04-19 06:23] LABS: ABG BASE EXCESS 8.1 (-2.0-2.0); ABG HCO3 34.2 MMOL/L (22.0-26.0); ABG O2 SATURATION 97.7 % (95.0-99.0); ABG PARTIAL PRESSURE CO2 56.5 mmHg (35.0-45.0); ABG PARTIAL PRESSURE O2 98.6 mmHg (75.0-100.0); ABG STANDARD HCO3 31.9 MMOL/L. (22.0-26.0); ABG TOTAL CO2 35.9 MMOL/L (23.0-31.0)
[2024-04-19] MEDS: LACRILUBE (AKWA TEARS) OPHTH OINT 3.5GM OU SCH (09:00)
[2024-04-19] MEDS: propofoL 1,000 MG in IV 1 EA IV SCH (09:13)
[2024-04-19] MEDS: ENOXAPARIN 100MG/1ML SYRINGE (J1650 PER 10MG) SC ONE (11:53)
[2024-04-19 12:43] LABS: VANCOMYCIN RANDOM < 3.0 UG/ML
[2024-04-19] MEDS: VANCOMYCIN HCL 1,000 MG, VIAL MATE ADAPTER 1 EACH in D5W 250 ML IV ONE ×2 (13:51→15:04)
[2024-04-19] MEDS: BISACODYL 10MG SUPP PR SCH (15:43)
[2024-04-19] MEDS: LACTULOSE 20GM/30ML SYRUP UDC PO SCH (15:44)
[2024-04-19] MEDS: ENOXAPARIN 150MG/ML SYRINGE SC SCH (20:00)
[2024-04-20] VITALS (41 sets, daily range): BP systolic 87–140; BP diastolic 50–76; TEMP 100.8–102.2; O2SAT 86–97
[2024-04-20] MEDS: VANCOMYCIN HCL 1,000 MG, VIAL MATE ADAPTER 1 EACH in D5W 250 ML IV SCH (02:34)
[2024-04-20 05:19] LABS: HEMATOCRIT 30.8 % (36.0-47.0); HEMOGLOBIN 8.7 g/dl (12.0-15.5); MEAN CORPUSCULAR HEMOGLOBIN 29.6 pg (27.0-33.0); MEAN CORPUSCULAR HGB CONC 28.2 g/dl (32.0-36.5); MEAN CORPUSCULAR VOLUME 104.8 fl (80.0-96.0); PLATELET COUNT, AUTOMATED 436 10^3/uL (150-450); RED BLOOD COUNT 2.94 10^6/uL (4.00-5.40); WHITE BLOOD COUNT 16.1 10^3/uL (4.0-10.0)
[2024-04-20 05:43] LABS: ALBUMIN 2.1 G/DL (3.2-5.2); ALKALINE PHOSPHATASE 37 U/L (46-116); ALT/SGPT 20 U/L (7.0-40); AST/SGOT 21 U/L (<34); BILIRUBIN,TOTAL 1.1 MG/DL (0.3-1.2); BLOOD UREA NITROGEN 48 MG/DL (9-23); CALCIUM LEVEL 6.8 MG/DL (8.3-10.6); CARBON DIOXIDE LEVEL > 40.0 MMOL/L (20-31); CHLORIDE LEVEL 98 MMOL/L (98-107); CREATININE FOR GFR 1.63 MG/DL (0.55-1.30); GLOMERULAR FILTRATION RATE 33.9 (>45); GLUCOSE, FASTING 160 MG/DL (74-106); MAGNESIUM LEVEL 2.9 MG/DL (1.8-2.4); POTASSIUM SERUM 4.2 MMOL/L (3.5-5.1); SODIUM LEVEL 142 MMOL/L (136-145); TOTAL PROTEIN 5.9 G/DL (5.7-8.2)
[2024-04-20 06:00] LABS: ABG HCO3 34.6 MMOL/L (22.0-26.0); ABG O2 SATURATION 93.6 % (95.0-99.0); ABG PARTIAL PRESSURE CO2 53.3 mmHg (35.0-45.0); ABG PARTIAL PRESSURE O2 69.2 mmHg (75.0-100.0); ABG STANDARD HCO3 32.7 MMOL/L. (22.0-26.0); ABG TOTAL CO2 36.2 MMOL/L (23.0-31.0)
[2024-04-20] MEDS: cefTRIAXone SOD 2 GM in D5W MINI-BAG PLUS 50 ML IV SCH (11:32)
[2024-04-20] MEDS: VANCOMYCIN HCL 750 MG, VIAL MATE ADAPTER 1 EACH in D5W 250 ML IV SCH (14:07)
[2024-04-20] MEDS: IBUPROFEN 100MG 5ML ORAL SUSP UDC NG ONE (15:10)
[2024-04-20] MEDS: VANCOMYCIN HCL 500 MG in D5W MINI-BAG PLUS 100 ML IV SCH (15:11)
[2024-04-20] MEDS: ACETAMINOPHEN *IV* 1,000 MG in IV 1 EA IV ONE (23:27)
[2024-04-21] VITALS (63 sets, daily range): BP systolic 87–134; BP diastolic 48–73; TEMP 100.7–101.8; O2SAT 89–98
[2024-04-21 04:49] LABS: HEMATOCRIT 29.7 % (36.0-47.0); HEMOGLOBIN 8.3 g/dl (12.0-15.5); MEAN CORPUSCULAR HEMOGLOBIN 29.2 pg (27.0-33.0); MEAN CORPUSCULAR HGB CONC 27.9 g/dl (32.0-36.5); MEAN CORPUSCULAR VOLUME 104.6 fl (80.0-96.0); PLATELET COUNT, AUTOMATED 445 10^3/uL (150-450); RED BLOOD COUNT 2.84 10^6/uL (4.00-5.40); WHITE BLOOD COUNT 13.3 10^3/uL (4.0-10.0)
[2024-04-21 05:17] LABS: ALBUMIN 2.4 G/DL (3.2-5.2); ALKALINE PHOSPHATASE 31 U/L (46-116); ALT/SGPT 22 U/L (7.0-40); AST/SGOT 23 U/L (<34); BILIRUBIN,TOTAL 0.7 MG/DL (0.3-1.2); BLOOD UREA NITROGEN 52 MG/DL (9-23); CALCIUM LEVEL 7.2 MG/DL (8.3-10.6); CARBON DIOXIDE LEVEL > 40.0 MMOL/L (20-31); CHLORIDE LEVEL 97 MMOL/L (98-107); CREATININE FOR GFR 1.53 MG/DL (0.55-1.30); GLOMERULAR FILTRATION RATE 36.5 (>45); GLUCOSE, FASTING 139 MG/DL (74-106); POTASSIUM SERUM 3.7 MMOL/L (3.5-5.1); SODIUM LEVEL 140 MMOL/L (136-145); TOTAL PROTEIN 6.4 G/DL (5.7-8.2)
[2024-04-21 05:59] LABS: ABG BASE EXCESS 12.1 (-2.0-2.0); ABG HCO3 38.3 MMOL/L (22.0-26.0); ABG O2 SATURATION 94.3 % (95.0-99.0); ABG PARTIAL PRESSURE CO2 59.5 mmHg (35.0-45.0); ABG PARTIAL PRESSURE O2 72.9 mmHg (75.0-100.0); ABG STANDARD HCO3 35.8 MMOL/L. (22.0-26.0); ABG TOTAL CO2 40.1 MMOL/L (23.0-31.0); ABG pH (ARTERIAL) 7.426 UNITS (7.350-7.450)
[2024-04-21] MEDS: POTASSIUM CHLORIDE 10% LIQ 20MEQ/15ML UDC NG ONE (11:21)
[2024-04-21] MEDS: ACETAMINOPHEN *IV* 1,000 MG in IV 1 EA IV PRN (12:38)
[2024-04-21] MEDS: VANCOMYCIN HCL 750 MG, VIAL MATE ADAPTER 1 EACH in D5W 250 ML IV SCH (13:00)
[2024-04-22] VITALS (75 sets, daily range): BP systolic 86–141; BP diastolic 49–71; TEMP 99–102.4; O2SAT 86–97
[2024-04-22 04:05] LABS: HEMATOCRIT 31.8 % (36.0-47.0); HEMOGLOBIN 8.9 g/dl (12.0-15.5); MEAN CORPUSCULAR HEMOGLOBIN 29.5 pg (27.0-33.0); MEAN CORPUSCULAR VOLUME 105.3 fl (80.0-96.0); PLATELET COUNT, AUTOMATED 433 10^3/uL (150-450); RED BLOOD COUNT 3.02 10^6/uL (4.00-5.40); WHITE BLOOD COUNT 13.8 10^3/uL (4.0-10.0)
[2024-04-22 05:07] LABS: ALBUMIN 2.5 G/DL (3.2-5.2); BILIRUBIN,TOTAL 0.6 MG/DL (0.3-1.2); CALCIUM LEVEL 7.4 MG/DL (8.3-10.6); CREATININE FOR GFR 1.2 MG/DL (0.55-1.30); GLOMERULAR FILTRATION RATE 48.3 (>45); POTASSIUM SERUM 3.9 MMOL/L (3.5-5.1); TOTAL PROTEIN 6.8 G/DL (5.7-8.2)
[2024-04-22 06:20] LABS: ABG HCO3 33.2 MMOL/L (22.0-26.0); ABG O2 SATURATION 89.2 % (95.0-99.0); ABG PARTIAL PRESSURE CO2 56.2 mmHg (35.0-45.0); ABG STANDARD HCO3 30.7 MMOL/L. (22.0-26.0); ABG TOTAL CO2 34.9 MMOL/L (23.0-31.0); ABG pH (ARTERIAL) 7.389 UNITS (7.350-7.450)
[2024-04-22] MEDS ORDERED: CISATRACURIUM 10MG/ML 20 ML VIAL As Ordered ONE (09:49)
[2024-04-22] MEDS: CISATRACURIUM 10MG/ML 20 ML VIAL IV ONE (09:55)
[2024-04-22] MEDS: CETACAINE SPRAY 5GM TOP ONE (10:37)
[2024-04-22] MEDS ORDERED: VANCOMYCIN HCL 1,000 MG, VIAL MATE ADAPTER 1 EACH in D5W 250 ML IV SCH (13:00)
[2024-04-23] VITALS (100 sets, daily range): BP systolic 95–133; BP diastolic 50–76; TEMP 99.3–100.9; O2SAT 87–97
[2024-04-23 04:38] LABS: MEAN CORPUSCULAR HEMOGLOBIN 29.9 pg (27.0-33.0); MEAN CORPUSCULAR HGB CONC 28.1 g/dl (32.0-36.5); MEAN CORPUSCULAR VOLUME 106.3 fl (80.0-96.0); PLATELET COUNT, AUTOMATED 427 10^3/uL (150-450); RED BLOOD COUNT 3.01 10^6/uL (4.00-5.40); WHITE BLOOD COUNT 14.6 10^3/uL (4.0-10.0)
[2024-04-23 05:19] LABS: ALBUMIN 2.3 G/DL (3.2-5.2); ALKALINE PHOSPHATASE 37 U/L (46-116); ALT/SGPT 22 U/L (7.0-40); AST/SGOT 19 U/L (<34); BILIRUBIN,TOTAL 0.7 MG/DL (0.3-1.2); BLOOD UREA NITROGEN 52 MG/DL (9-23); CALCIUM LEVEL 7.6 MG/DL (8.3-10.6); CARBON DIOXIDE LEVEL > 40.0 MMOL/L (20-31); CHLORIDE LEVEL 99 MMOL/L (98-107); CREATININE FOR GFR 1.26 MG/DL (0.55-1.30); GLOMERULAR FILTRATION RATE 45.7 (>45); GLUCOSE, FASTING 165 MG/DL (74-106); MAGNESIUM LEVEL 2.8 MG/DL (1.8-2.4); POTASSIUM SERUM 3.7 MMOL/L (3.5-5.1); SODIUM LEVEL 141 MMOL/L (136-145); TOTAL PROTEIN 6.1 G/DL (5.7-8.2)
[2024-04-23 05:49] LABS: ABG HCO3 33.8 MMOL/L (22.0-26.0); ABG O2 SATURATION 95.8 % (95.0-99.0); ABG PARTIAL PRESSURE O2 85.4 mmHg (75.0-100.0); ABG STANDARD HCO3 30.8 MMOL/L. (22.0-26.0); ABG TOTAL CO2 35.7 MMOL/L (23.0-31.0); ABG pH (ARTERIAL) 7.359 UNITS (7.350-7.450)
[2024-04-23 05:53] LABS: ABG PARTIAL PRESSURE CO2 61.4 mmHg (35.0-45.0)
[2024-04-23] MEDS: SODIUM CHLORIDE 0.9% INJ 10 ML SYR IV PRN (09:29)
[2024-04-23] MEDS: POTASSIUM CHLORIDE 10% LIQ 20MEQ/15ML UDC PO ONE (12:12)
[2024-04-24] VITALS (98 sets, daily range): BP systolic 91–122; BP diastolic 50–65; TEMP 99.9–100.9; O2SAT 89–99
[2024-04-24 04:43] LABS: HEMATOCRIT 32.1 % (36.0-47.0); MEAN CORPUSCULAR HEMOGLOBIN 29.8 pg (27.0-33.0); MEAN CORPUSCULAR VOLUME 106.3 fl (80.0-96.0); PLATELET COUNT, AUTOMATED 437 10^3/uL (150-450); RED BLOOD COUNT 3.02 10^6/uL (4.00-5.40); WHITE BLOOD COUNT 16.8 10^3/uL (4.0-10.0)
[2024-04-24 05:16] LABS: ALBUMIN 2.4 G/DL (3.2-5.2); BILIRUBIN,TOTAL 0.7 MG/DL (0.3-1.2); CALCIUM LEVEL 7.7 MG/DL (8.3-10.6); CREATININE FOR GFR 1.29 MG/DL (0.55-1.30); GLOMERULAR FILTRATION RATE 44.4 (>45); MAGNESIUM LEVEL 2.9 MG/DL (1.8-2.4)
[2024-04-24 05:53] LABS: ABG BASE EXCESS 8.9 (-2.0-2.0); ABG HCO3 35.5 MMOL/L (22.0-26.0); ABG O2 SATURATION 96.3 % (95.0-99.0); ABG STANDARD HCO3 32.7 MMOL/L. (22.0-26.0); ABG TOTAL CO2 37.3 MMOL/L (23.0-31.0); ABG pH (ARTERIAL) 7.389 UNITS (7.350-7.450)
[2024-04-24 05:57] LABS: ABG PARTIAL PRESSURE CO2 60.1 mmHg (35.0-45.0)
[2024-04-24] MEDS: CHLOROTHIAZIDE 500MG VIAL IV ONE (09:24)
[2024-04-24] MEDS: FUROSEMIDE IV SCH (16:56)
[2024-04-24] MEDS: D5W IV SCH (16:56)
[2024-04-25] VITALS (54 sets, daily range): BP systolic 85–136; BP diastolic 50–68; TEMP 100.9–101.3; O2SAT 89–95
[2024-04-25] MEDS ORDERED: AMIODARONE 200 MG TAB (PACERONE) As Ordered ONE (08:53)
[2024-04-25] MEDS ORDERED: PANTOPRAZOLE 40MG VIAL As Ordered ONE (08:54)
[2024-04-25] MEDS ORDERED: PROPOFOL 1,000 MG/100 ML VIAL As Ordered ONE (08:56)
[2024-04-25] MEDS: POTASSIUM CHLORIDE 10% LIQ 20MEQ/15ML UDC PO SCH (13:30)
[2024-04-25] MEDS: CHLOROTHIAZIDE 500MG VIAL IV ONE (14:22)
[2024-04-25 15:20] LABS: HEMATOCRIT 31.4 % (36.0-47.0); HEMOGLOBIN 8.7 g/dl (12.0-15.5); MEAN CORPUSCULAR HEMOGLOBIN 29.5 pg (27.0-33.0); MEAN CORPUSCULAR HGB CONC 27.7 g/dl (32.0-36.5); MEAN CORPUSCULAR VOLUME 106.4 fl (80.0-96.0); PLATELET COUNT, AUTOMATED 435 10^3/uL (150-450); RED BLOOD COUNT 2.95 10^6/uL (4.00-5.40); WHITE BLOOD COUNT 14.8 10^3/uL (4.0-10.0)
[2024-04-25 15:24] LABS: ALBUMIN 2.7 G/DL (3.2-5.2); BILIRUBIN,TOTAL 0.6 MG/DL (0.3-1.2); CREATININE FOR GFR 1.7 MG/DL (0.55-1.30); GLOMERULAR FILTRATION RATE 32.3 (>45); MAGNESIUM LEVEL 3.2 MG/DL (1.8-2.4); POTASSIUM SERUM 3.7 MMOL/L (3.5-5.1); TOTAL PROTEIN 6.6 G/DL (5.7-8.2)
[2024-04-26] VITALS (29 sets, daily range): BP systolic 88–101; BP diastolic 50–60; TEMP 98.4–101.3; O2SAT 89–97
[2024-04-26] MEDS ORDERED: VANCOMYCIN HCL 1,000 MG, VIAL MATE ADAPTER 1 EACH in D5W 250 ML IV SCH (01:30)
[2024-04-26] MEDS: VANCOMYCIN HCL 1,000 MG, VIAL MATE ADAPTER 1 EACH in D5W 250 ML IV ONE ×2 (02:20→03:28)
[2024-04-26 05:31] LABS: HEMATOCRIT 31.5 % (36.0-47.0); HEMOGLOBIN 8.7 g/dl (12.0-15.5); MEAN CORPUSCULAR HEMOGLOBIN 29.2 pg (27.0-33.0); MEAN CORPUSCULAR HGB CONC 27.6 g/dl (32.0-36.5); MEAN CORPUSCULAR VOLUME 105.7 fl (80.0-96.0); PLATELET COUNT, AUTOMATED 428 10^3/uL (150-450); RED BLOOD COUNT 2.98 10^6/uL (4.00-5.40)
[2024-04-26 05:54] LABS: BASOPHILS 2 % (0-1); EOSINOPHILS 2 % (0-3); LYMPHOCYTES 13 % (16-44); MONOCYTES 1 % (0-5); NEUTROPHILS 82 % (28-66); PLATELET ESTIMATE NORMAL (NORMAL)
[2024-04-26 05:55] LABS: ANISOCYTOSIS 2+; POLYCHROMASIA 1+
[2024-04-26 05:56] LABS: HYPOCHROMASIA 2+
[2024-04-26 06:04] LABS: ALBUMIN 2.4 G/DL (3.2-5.2); BILIRUBIN,TOTAL 0.6 MG/DL (0.3-1.2); CALCIUM LEVEL 7.7 MG/DL (8.3-10.6); CREATININE FOR GFR 1.74 MG/DL (0.55-1.30); GLOMERULAR FILTRATION RATE 31.5 (>45); MAGNESIUM LEVEL 3.4 MG/DL (1.8-2.4); PHOSPHORUS LEVEL 5.6 MG/DL (2.4-5.1); POTASSIUM SERUM 4.1 MMOL/L (3.5-5.1); TOTAL PROTEIN 6.3 G/DL (5.7-8.2)
[2024-04-26] MEDS: VANCOMYCIN HCL 1,000 MG, VIAL MATE ADAPTER 1 EACH in D5W 250 ML IV SCH (16:03)
[2024-04-26] MEDS ORDERED: VANCOMYCIN HCL 750 MG, VIAL MATE ADAPTER 1 EACH in D5W 250 ML IV SCH (22:00)
[2024-04-26] MEDS ORDERED: VANCOMYCIN HCL 500 MG in D5W MINI-BAG PLUS 100 ML IV SCH (23:00)
[2024-04-27] VITALS (64 sets, daily range): BP systolic 81–121; BP diastolic 49–66; TEMP 97.3–100.8; O2SAT 88–99
[2024-04-27 06:18] LABS: HEMATOCRIT 31.8 % (36.0-47.0); HEMOGLOBIN 8.7 g/dl (12.0-15.5); MEAN CORPUSCULAR HEMOGLOBIN 29.5 pg (27.0-33.0); MEAN CORPUSCULAR HGB CONC 27.4 g/dl (32.0-36.5); MEAN CORPUSCULAR VOLUME 107.8 fl (80.0-96.0); PLATELET COUNT, AUTOMATED 438 10^3/uL (150-450); RED BLOOD COUNT 2.95 10^6/uL (4.00-5.40)
[2024-04-27 06:32] LABS: C REACTIVE PROTEIN QUANTITATIV 9.3 MG/DL (<1.0)
[2024-04-27 06:40] LABS: PROCALCITONIN 0.4 ng/ml
[2024-04-27 06:50] LABS: ALBUMIN 2.5 G/DL (3.2-5.2); BILIRUBIN,TOTAL 0.7 MG/DL (0.3-1.2); CALCIUM LEVEL 7.8 MG/DL (8.3-10.6); CREATININE FOR GFR 1.75 MG/DL (0.55-1.30); GLOMERULAR FILTRATION RATE 31.3 (>45); MAGNESIUM LEVEL 3.4 MG/DL (1.8-2.4); PHOSPHORUS LEVEL 6.1 MG/DL (2.4-5.1); POTASSIUM SERUM 4.1 MMOL/L (3.5-5.1); TOTAL PROTEIN 6.2 G/DL (5.7-8.2)
[2024-04-27 06:56] LABS: ANISOCYTOSIS 2+; EOSINOPHILS 4 % (0-3); LYMPHOCYTES 16 % (16-44); MICROCYTOSIS 1+; MONOCYTES 6 % (0-5); NEUTROPHILS 73 % (28-66); PLATELET ESTIMATE NORMAL (NORMAL); POIKILOCYTOSIS 1+; POLYCHROMASIA 2+
[2024-04-27 06:57] LABS: HYPOCHROMASIA 2+
[2024-04-27] MEDS: VANCOMYCIN HCL 1,000 MG, VIAL MATE ADAPTER 1 EACH in D5W 250 ML IV SCH (08:46)
[2024-04-27] MEDS ORDERED: SODIUM CHLORIDE 0.9% 1000ML CRRT SCH (09:55)
[2024-04-27] MEDS ORDERED: SODIUM CHLORIDE 0.9% INJ 10 ML SYR CRRT PRN ×2 (09:55)
[2024-04-27] MEDS ORDERED: HEPARIN 1,000UNITS/ML 10ML VIAL (FOR RADIOLOGY & DIALYSIS ONLY) CRRT PRN (09:55)
[2024-04-27 10:37] LABS: HEMATOCRIT 32.5 % (36.0-47.0); HEMOGLOBIN 8.9 g/dl (12.0-15.5); MEAN CORPUSCULAR HEMOGLOBIN 29.4 pg (27.0-33.0); MEAN CORPUSCULAR HGB CONC 27.4 g/dl (32.0-36.5); MEAN CORPUSCULAR VOLUME 107.3 fl (80.0-96.0); PLATELET COUNT, AUTOMATED 436 10^3/uL (150-450); RED BLOOD COUNT 3.03 10^6/uL (4.00-5.40); WHITE BLOOD COUNT 14.3 10^3/uL (4.0-10.0)
[2024-04-27 10:56] LABS: INR 1.26; PARTIAL THROMBOPLASTIN TIME 31.6 SECONDS (24.8-34.2); PROTHROMBIN TIME 15.4 SECONDS (12.5-14.5)
[2024-04-27 11:10] LABS: CREATININE FOR GFR 1.69 MG/DL (0.55-1.30); GLOMERULAR FILTRATION RATE 32.5 (>45); MAGNESIUM LEVEL 3.3 MG/DL (1.8-2.4); POTASSIUM SERUM 4.1 MMOL/L (3.5-5.1)
[2024-04-27 21:22] LABS: IONIZED CALCIUM 4.1 MG/DL (4.5-5.3)
[2024-04-27 21:26] LABS: HEMATOCRIT 33.4 % (36.0-47.0); HEMOGLOBIN 9.2 g/dl (12.0-15.5); MEAN CORPUSCULAR HEMOGLOBIN 29.6 pg (27.0-33.0); MEAN CORPUSCULAR HGB CONC 27.5 g/dl (32.0-36.5); MEAN CORPUSCULAR VOLUME 107.4 fl (80.0-96.0); PLATELET COUNT, AUTOMATED 428 10^3/uL (150-450); RED BLOOD COUNT 3.11 10^6/uL (4.00-5.40); WHITE BLOOD COUNT 12.9 10^3/uL (4.0-10.0)
[2024-04-27 21:57] LABS: CALCIUM LEVEL 7.8 MG/DL (8.3-10.6); CREATININE FOR GFR 1.29 MG/DL (0.55-1.30); GLOMERULAR FILTRATION RATE 44.4 (>45); MAGNESIUM LEVEL 3.2 MG/DL (1.8-2.4); PHOSPHORUS LEVEL 4.8 MG/DL (2.4-5.1); POTASSIUM SERUM 4.2 MMOL/L (3.5-5.1)
[2024-04-27] MEDS: CALCIUM GLUCONATE 1,000 MG, VIAL MATE ADAPTER 1 EACH in NS 100 ML IV SCH (23:11)
[2024-04-28] VITALS (99 sets, daily range): BP systolic 80–129; BP diastolic 45–89; TEMP 96.5–97.6; O2SAT 86–100
[2024-04-28 03:25] LABS: IONIZED CALCIUM 4.3 MG/DL (4.5-5.3)
[2024-04-28 03:31] LABS: HEMATOCRIT 34.5 % (36.0-47.0); HEMOGLOBIN 9.4 g/dl (12.0-15.5); MEAN CORPUSCULAR HEMOGLOBIN 29.3 pg (27.0-33.0); MEAN CORPUSCULAR HGB CONC 27.2 g/dl (32.0-36.5); MEAN CORPUSCULAR VOLUME 107.5 fl (80.0-96.0); PLATELET COUNT, AUTOMATED 442 10^3/uL (150-450); RED BLOOD COUNT 3.21 10^6/uL (4.00-5.40); WHITE BLOOD COUNT 13.6 10^3/uL (4.0-10.0)
[2024-04-28 03:54] LABS: CALCIUM LEVEL 8.1 MG/DL (8.3-10.6); CREATININE FOR GFR 1.17 MG/DL (0.55-1.30); GLOMERULAR FILTRATION RATE 49.7 (>45); MAGNESIUM LEVEL 3.1 MG/DL (1.8-2.4); PHOSPHORUS LEVEL 4.9 MG/DL (2.4-5.1); POTASSIUM SERUM 4.9 MMOL/L (3.5-5.1)
[2024-04-28] MEDS: CALCIUM GLUCONATE 1,000 MG, VIAL MATE ADAPTER 1 EACH in NS 100 ML IV SCH (05:16)
[2024-04-28 09:26] LABS: IONIZED CALCIUM 4.5 MG/DL (4.5-5.3)
[2024-04-28 09:31] LABS: HEMOGLOBIN 9.3 g/dl (12.0-15.5); MEAN CORPUSCULAR HEMOGLOBIN 29.4 pg (27.0-33.0); MEAN CORPUSCULAR HGB CONC 27.4 g/dl (32.0-36.5); MEAN CORPUSCULAR VOLUME 107.6 fl (80.0-96.0); PLATELET COUNT, AUTOMATED 424 10^3/uL (150-450); RED BLOOD COUNT 3.16 10^6/uL (4.00-5.40)
[2024-04-28 09:56] LABS: CALCIUM LEVEL 8.3 MG/DL (8.3-10.6); CREATININE FOR GFR 1.06 MG/DL (0.55-1.30); GLOMERULAR FILTRATION RATE 55.7 (>45); MAGNESIUM LEVEL 2.8 MG/DL (1.8-2.4); PHOSPHORUS LEVEL 4.8 MG/DL (2.4-5.1); POTASSIUM SERUM 4.5 MMOL/L (3.5-5.1)
[2024-04-28] MEDS: CALCIUM GLUCONATE 1,000 MG in NS MINI-BAG PLUS 100 ML IV ONE ×2 (10:27→16:12)
[2024-04-28 15:34] LABS: HEMATOCRIT 35.6 % (36.0-47.0); HEMOGLOBIN 9.8 g/dl (12.0-15.5); MEAN CORPUSCULAR HEMOGLOBIN 29.4 pg (27.0-33.0); MEAN CORPUSCULAR HGB CONC 27.5 g/dl (32.0-36.5); MEAN CORPUSCULAR VOLUME 106.9 fl (80.0-96.0); PLATELET COUNT, AUTOMATED 436 10^3/uL (150-450); RED BLOOD COUNT 3.33 10^6/uL (4.00-5.40)
[2024-04-28 15:44] LABS: IONIZED CALCIUM 4.4 MG/DL (4.5-5.3)
[2024-04-28 16:00] LABS: CALCIUM LEVEL 8.2 MG/DL (8.3-10.6); CREATININE FOR GFR 1.13 MG/DL (0.55-1.30); GLOMERULAR FILTRATION RATE 51.8 (>45); MAGNESIUM LEVEL 2.8 MG/DL (1.8-2.4); PHOSPHORUS LEVEL 5.3 MG/DL (2.4-5.1); POTASSIUM SERUM 4.9 MMOL/L (3.5-5.1)
[2024-04-28] MEDS: NOREPINEPHRINE 4MG IN D5 250ML 4 MG in IV 1 EA IV SCH (16:50)
[2024-04-28 20:51] LABS: IONIZED CALCIUM 4.5 MG/DL (4.5-5.3)
[2024-04-28 20:59] LABS: HEMATOCRIT 36.1 % (36.0-47.0); HEMOGLOBIN 9.9 g/dl (12.0-15.5); MEAN CORPUSCULAR HEMOGLOBIN 29.1 pg (27.0-33.0); MEAN CORPUSCULAR HGB CONC 27.4 g/dl (32.0-36.5); MEAN CORPUSCULAR VOLUME 106.2 fl (80.0-96.0); PLATELET COUNT, AUTOMATED 481 10^3/uL (150-450)
[2024-04-28 21:38] LABS: CALCIUM LEVEL 8.3 MG/DL (8.3-10.6); CREATININE FOR GFR 1.19 MG/DL (0.55-1.30); GLOMERULAR FILTRATION RATE 48.8 (>45); MAGNESIUM LEVEL 2.8 MG/DL (1.8-2.4); PHOSPHORUS LEVEL 5.4 MG/DL (2.4-5.1); POTASSIUM SERUM 5.1 MMOL/L (3.5-5.1)
[2024-04-28] MEDS: CALCIUM GLUCONATE 1,000 MG, VIAL MATE ADAPTER 1 EACH in NS 100 ML IV ONE (21:43)
[2024-04-29] VITALS (101 sets, daily range): BP systolic 83–113; BP diastolic 50–63; TEMP 97–97.9; O2SAT 86–99
[2024-04-29 02:54] LABS: IONIZED CALCIUM 4.5 MG/DL (4.5-5.3)
[2024-04-29 03:00] LABS: HEMATOCRIT 36.3 % (36.0-47.0); HEMOGLOBIN 9.9 g/dl (12.0-15.5); MEAN CORPUSCULAR HEMOGLOBIN 28.9 pg (27.0-33.0); MEAN CORPUSCULAR HGB CONC 27.3 g/dl (32.0-36.5); MEAN CORPUSCULAR VOLUME 105.8 fl (80.0-96.0); PLATELET COUNT, AUTOMATED 514 10^3/uL (150-450); RED BLOOD COUNT 3.43 10^6/uL (4.00-5.40); WHITE BLOOD COUNT 17.5 10^3/uL (4.0-10.0)
[2024-04-29 03:31] LABS: CALCIUM LEVEL 8.2 MG/DL (8.3-10.6); CREATININE FOR GFR 1.23 MG/DL (0.55-1.30); GLOMERULAR FILTRATION RATE 46.9 (>45); MAGNESIUM LEVEL 2.7 MG/DL (1.8-2.4); PHOSPHORUS LEVEL 5.5 MG/DL (2.4-5.1); POTASSIUM SERUM 4.9 MMOL/L (3.5-5.1)
[2024-04-29] MEDS: CALCIUM GLUCONATE 1,000 MG in D5W MINI-BAG PLUS 100 ML IV ONE (03:56)
[2024-04-29 09:34] LABS: IONIZED CALCIUM 4.5 MG/DL (4.5-5.3)
[2024-04-29 09:57] LABS: INR 1.27; PARTIAL THROMBOPLASTIN TIME 31.8 SECONDS (24.8-34.2); PROTHROMBIN TIME 15.5 SECONDS (12.5-14.5)
[2024-04-29 09:58] LABS: HEMATOCRIT 35.3 % (36.0-47.0); HEMOGLOBIN 9.9 g/dl (12.0-15.5); MEAN CORPUSCULAR HEMOGLOBIN 29.6 pg (27.0-33.0); MEAN CORPUSCULAR VOLUME 105.7 fl (80.0-96.0); PLATELET COUNT, AUTOMATED 486 10^3/uL (150-450); RED BLOOD COUNT 3.34 10^6/uL (4.00-5.40); WHITE BLOOD COUNT 16.2 10^3/uL (4.0-10.0)
[2024-04-29 10:08] LABS: CALCIUM LEVEL 8.7 MG/DL (8.3-10.6); CREATININE FOR GFR 1.23 MG/DL (0.55-1.30); GLOMERULAR FILTRATION RATE 46.9 (>45); MAGNESIUM LEVEL 2.8 MG/DL (1.8-2.4); PHOSPHORUS LEVEL 4.9 MG/DL (2.4-5.1); POTASSIUM SERUM 4.9 MMOL/L (3.5-5.1)
[2024-04-29] MEDS: CALCIUM GLUCONATE 1,000 MG in NS MINI-BAG PLUS 100 ML IV ONE ×2 (10:15→16:18)
[2024-04-29] MEDS: fentaNYL CITRATE 1,000 MCG in NS 80 ML IV SCH (12:46)
[2024-04-29 15:10] LABS: IONIZED CALCIUM 4.6 MG/DL (4.5-5.3)
[2024-04-29 15:12] LABS: HEMATOCRIT 37.1 % (36.0-47.0); HEMOGLOBIN 10.3 g/dl (12.0-15.5); MEAN CORPUSCULAR HEMOGLOBIN 29.3 pg (27.0-33.0); MEAN CORPUSCULAR HGB CONC 27.8 g/dl (32.0-36.5); MEAN CORPUSCULAR VOLUME 105.4 fl (80.0-96.0); PLATELET COUNT, AUTOMATED 516 10^3/uL (150-450); RED BLOOD COUNT 3.52 10^6/uL (4.00-5.40)
[2024-04-29 15:28] LABS: INR 1.3; PARTIAL THROMBOPLASTIN TIME 32.8 SECONDS (24.8-34.2); PROTHROMBIN TIME 15.8 SECONDS (12.5-14.5)
[2024-04-29 15:38] LABS: CALCIUM LEVEL 8.6 MG/DL (8.3-10.6); CREATININE FOR GFR 1.24 MG/DL (0.55-1.30); GLOMERULAR FILTRATION RATE 46.5 (>45); MAGNESIUM LEVEL 2.8 MG/DL (1.8-2.4); POTASSIUM SERUM 4.9 MMOL/L (3.5-5.1)
[2024-04-29 20:50] LABS: IONIZED CALCIUM 4.7 MG/DL (4.5-5.3)
[2024-04-29 20:57] LABS: HEMATOCRIT 38.6 % (36.0-47.0); HEMOGLOBIN 10.7 g/dl (12.0-15.5); MEAN CORPUSCULAR HEMOGLOBIN 29.1 pg (27.0-33.0); MEAN CORPUSCULAR HGB CONC 27.7 g/dl (32.0-36.5); MEAN CORPUSCULAR VOLUME 104.9 fl (80.0-96.0); PLATELET COUNT, AUTOMATED 537 10^3/uL (150-450); RED BLOOD COUNT 3.68 10^6/uL (4.00-5.40); WHITE BLOOD COUNT 18.6 10^3/uL (4.0-10.0)
[2024-04-29 21:22] LABS: CALCIUM LEVEL 8.9 MG/DL (8.3-10.6); CREATININE FOR GFR 1.32 MG/DL (0.55-1.30); GLOMERULAR FILTRATION RATE 43.3 (>45); MAGNESIUM LEVEL 2.8 MG/DL (1.8-2.4); PHOSPHORUS LEVEL 5.1 MG/DL (2.4-5.1)
[2024-04-30] VITALS (79 sets, daily range): BP systolic 85–118; BP diastolic 47–59; TEMP 97–97.9; O2SAT 88–97
[2024-04-30 03:13] LABS: IONIZED CALCIUM 4.5 MG/DL (4.5-5.3)
[2024-04-30 03:28] LABS: HEMATOCRIT 37.6 % (36.0-47.0); HEMOGLOBIN 10.4 g/dl (12.0-15.5); MEAN CORPUSCULAR HGB CONC 27.7 g/dl (32.0-36.5); MEAN CORPUSCULAR VOLUME 104.7 fl (80.0-96.0); PLATELET COUNT, AUTOMATED 507 10^3/uL (150-450); RED BLOOD COUNT 3.59 10^6/uL (4.00-5.40); WHITE BLOOD COUNT 19.6 10^3/uL (4.0-10.0)
[2024-04-30 03:43] LABS: CALCIUM LEVEL 8.2 MG/DL (8.3-10.6); CREATININE FOR GFR 1.37 MG/DL (0.55-1.30); GLOMERULAR FILTRATION RATE 41.5 (>45); MAGNESIUM LEVEL 2.7 MG/DL (1.8-2.4)
[2024-04-30] MEDS: CALCIUM GLUCONATE 1,000 MG, VIAL MATE ADAPTER 1 EACH in NS 100 ML IV ONE ×2 (04:18→21:47)
[2024-04-30 09:04] LABS: IONIZED CALCIUM 4.5 MG/DL (4.5-5.3)
[2024-04-30 09:13] LABS: HEMOGLOBIN 10.4 g/dl (12.0-15.5); MEAN CORPUSCULAR HEMOGLOBIN 29.1 pg (27.0-33.0); MEAN CORPUSCULAR HGB CONC 28.1 g/dl (32.0-36.5); MEAN CORPUSCULAR VOLUME 103.6 fl (80.0-96.0); PLATELET COUNT, AUTOMATED 480 10^3/uL (150-450); RED BLOOD COUNT 3.57 10^6/uL (4.00-5.40); WHITE BLOOD COUNT 18.9 10^3/uL (4.0-10.0)
[2024-04-30 09:38] LABS: CALCIUM LEVEL 8.5 MG/DL (8.3-10.6); CREATININE FOR GFR 1.36 MG/DL (0.55-1.30); GLOMERULAR FILTRATION RATE 41.8 (>45); PHOSPHORUS LEVEL 4.9 MG/DL (2.4-5.1); POTASSIUM SERUM 4.9 MMOL/L (3.5-5.1)
[2024-04-30 10:34] LABS: MAGNESIUM LEVEL 2.8 MG/DL (1.8-2.4)
[2024-04-30] MEDS: CALCIUM GLUCONATE 1,000 MG in D5W MINI-BAG PLUS 100 ML IV ONE ×2 (10:50→15:59)
[2024-04-30 15:10] LABS: IONIZED CALCIUM 4.6 MG/DL (4.5-5.3)
[2024-04-30 15:36] LABS: HEMATOCRIT 36.7 % (36.0-47.0); HEMOGLOBIN 10.2 g/dl (12.0-15.5); MEAN CORPUSCULAR HEMOGLOBIN 28.9 pg (27.0-33.0); MEAN CORPUSCULAR HGB CONC 27.8 g/dl (32.0-36.5); PLATELET COUNT, AUTOMATED 434 10^3/uL (150-450); RED BLOOD COUNT 3.53 10^6/uL (4.00-5.40); WHITE BLOOD COUNT 17.5 10^3/uL (4.0-10.0)
[2024-04-30 15:39] LABS: CALCIUM LEVEL 8.8 MG/DL (8.3-10.6); CREATININE FOR GFR 1.47 MG/DL (0.55-1.30); GLOMERULAR FILTRATION RATE 38.2 (>45); MAGNESIUM LEVEL 2.8 MG/DL (1.8-2.4); PHOSPHORUS LEVEL 4.9 MG/DL (2.4-5.1); POTASSIUM SERUM 4.7 MMOL/L (3.5-5.1)
[2024-04-30 20:53] LABS: HEMATOCRIT 37.8 % (36.0-47.0); HEMOGLOBIN 10.5 g/dl (12.0-15.5); MEAN CORPUSCULAR HEMOGLOBIN 29.2 pg (27.0-33.0); MEAN CORPUSCULAR HGB CONC 27.8 g/dl (32.0-36.5); MEAN CORPUSCULAR VOLUME 105.3 fl (80.0-96.0); PLATELET COUNT, AUTOMATED 444 10^3/uL (150-450); RED BLOOD COUNT 3.59 10^6/uL (4.00-5.40); WHITE BLOOD COUNT 19.3 10^3/uL (4.0-10.0)
[2024-04-30 20:58] LABS: INR 1.25; PARTIAL THROMBOPLASTIN TIME 32.3 SECONDS (24.8-34.2); PROTHROMBIN TIME 15.3 SECONDS (12.5-14.5)
[2024-04-30 21:21] LABS: CALCIUM LEVEL 8.5 MG/DL (8.3-10.6); CREATININE FOR GFR 1.55 MG/DL (0.55-1.30); MAGNESIUM LEVEL 2.8 MG/DL (1.8-2.4)
[2024-05-01] VITALS (53 sets, daily range): BP systolic 85–111; BP diastolic 46–59; TEMP 97.3–98.3; O2SAT 88–97
[2024-05-01 02:54] LABS: HEMOGLOBIN 10.5 g/dl (12.0-15.5); MEAN CORPUSCULAR HEMOGLOBIN 29.2 pg (27.0-33.0); MEAN CORPUSCULAR HGB CONC 27.6 g/dl (32.0-36.5); MEAN CORPUSCULAR VOLUME 105.6 fl (80.0-96.0); PLATELET COUNT, AUTOMATED 477 10^3/uL (150-450); WHITE BLOOD COUNT 21.4 10^3/uL (4.0-10.0)
[2024-05-01 03:07] LABS: INR 1.3; PARTIAL THROMBOPLASTIN TIME 36.5 SECONDS (24.8-34.2); PROTHROMBIN TIME 15.8 SECONDS (12.5-14.5)
[2024-05-01 03:25] LABS: CALCIUM LEVEL 8.4 MG/DL (8.3-10.6); CREATININE FOR GFR 1.56 MG/DL (0.55-1.30); GLOMERULAR FILTRATION RATE 35.7 (>45); MAGNESIUM LEVEL 2.9 MG/DL (1.8-2.4); PHOSPHORUS LEVEL 5.3 MG/DL (2.4-5.1); POTASSIUM SERUM 5.5 MMOL/L (3.5-5.1)
[2024-05-01] MEDS: CALCIUM GLUCONATE 1,000 MG, VIAL MATE ADAPTER 1 EACH in NS 100 ML IV ONE (05:24)
[2024-05-01 09:21] LABS: IONIZED CALCIUM 4.5 MG/DL (4.5-5.3)
[2024-05-01 09:24] LABS: HEMATOCRIT 37.8 % (36.0-47.0); HEMOGLOBIN 10.4 g/dl (12.0-15.5); MEAN CORPUSCULAR HEMOGLOBIN 28.9 pg (27.0-33.0); MEAN CORPUSCULAR HGB CONC 27.5 g/dl (32.0-36.5); PLATELET COUNT, AUTOMATED 449 10^3/uL (150-450); WHITE BLOOD COUNT 21.6 10^3/uL (4.0-10.0)
[2024-05-01 09:56] LABS: CALCIUM LEVEL 8.6 MG/DL (8.3-10.6); CREATININE FOR GFR 1.67 MG/DL (0.55-1.30); MAGNESIUM LEVEL 2.8 MG/DL (1.8-2.4); PHOSPHORUS LEVEL 5.2 MG/DL (2.4-5.1); POTASSIUM SERUM 5.2 MMOL/L (3.5-5.1)
[2024-05-01] MEDS ORDERED: SCOPOLAMINE 1MG TRANSDERMAL PATCH TOP PRN (13:30)
[2024-05-01] MEDS ORDERED: FENTANYL DRIP LOCK BOX KEY 1 EACH XX PRN (13:35)
[2024-05-01] MEDS ORDERED: fentaNYL CITRATE/NaCl 1,000 MCG in IV 1 EA IV SCH (13:35)
[2024-05-01] MEDS: MORPHINE 2 MG/ML 1ML VIAL IV PRN (13:55)
[2024-05-01] MEDS: LORazepam 2 MG/ML 1ML VIAL IV PRN (13:55)
== END 2024-05-01 14:17 | disposition expired | DRG 308 ==
LOC: EDBD 14:12 → M ED 14:12 → M ED INP 16:29 → M ICU 22:50
PROVIDERS: ADMIT Student in an Organized Health Care Education/Training Program; ATTEND Internal Medicine Critical Care Medicine
PROC: 0QS734Z Reposition Left Upper Femur with Internal Fixation Device, Percutaneous Approach (ICD-10-PCS; principal; 2024-04-14 16:30)
PROC: 0S9D3ZZ Drainage of Left Knee Joint, Percutaneous Approach (ICD-10-PCS; 2024-04-14 16:30)
PROC: 5A1955Z Respiratory Ventilation, Greater than 96 Consecutive Hours (ICD-10-PCS; 2024-04-15)
PROC: 05HM33Z Insertion of Infusion Device into Right Internal Jugular Vein, Percutaneous Approach (ICD-10-PCS; 2024-04-27)
DX: S72.402A Unspecified fracture of lower end of left femur, initial encounter for closed fracture (principal); J96.21 Acute and chronic respiratory failure with hypoxia; R57.9 Shock, unspecified; I27.20 Pulmonary hypertension, unspecified; I50.33 Acute on chronic diastolic (congestive) heart failure; N17.9 Acute kidney failure, unspecified; D68.59 Other primary thrombophilia; E66.2 Morbid (severe) obesity with alveolar hypoventilation; J96.22 Acute and chronic respiratory failure with hypercapnia; J44.1 Chronic obstructive pulmonary disease with (acute) exacerbation; E87.3 Alkalosis; Z68.44 Body mass index [BMI] 60.0-69.9, adult; I11.0 Hypertensive heart disease with heart failure; Z99.81 Dependence on supplemental oxygen; E87.5 Hyperkalemia; I48.91 Unspecified atrial fibrillation; Z51.5 Encounter for palliative care; Z79.01 Long term (current) use of anticoagulants; Z86.711 Personal history of pulmonary embolism; F32.A Depression, unspecified; Z79.899 Other long term (current) drug therapy; W18.09XA Striking against other object with subsequent fall, initial encounter; D64.9 Anemia, unspecified; Z91.119 Patient's noncompliance with dietary regimen due to unspecified reason